=== PATIENT | female | born 1945 | race American Indian/Alaskan Native ===

== ENCOUNTER 2016-05-23 09:27 | Outpatient (CLI) | payer MEDICARE ==
[2016-05-23] MEDS ORDERED: XYLOCAINE TOPICAL 4% TP ONE ×2 (09:53→15:23)
== END 2016-05-23 09:28 | disposition home or self-care (01) ==
LOC: WOUND 09:27
PROVIDERS: ATTEND Orthopaedic Surgery
DX: L02.11 Cutaneous abscess of neck (principal); E11.9 Type 2 diabetes mellitus without complications; I10 Essential (primary) hypertension; B95.62 Methicillin resistant Staphylococcus aureus infection as the cause of diseases classified elsewhere; F17.210 Nicotine dependence, cigarettes, uncomplicated; Z89.431 Acquired absence of right foot; Z89.411 Acquired absence of right great toe

== ENCOUNTER 2016-05-30 08:47 | Outpatient (CLI) | payer MEDICARE ==
[2016-05-30] MEDS ORDERED: XYLOCAINE TOPICAL 4% TP ONE ×2 (08:57→09:03)
== END 2016-05-30 08:48 | disposition home or self-care (01) ==
LOC: WOUND 08:47
PROVIDERS: ATTEND Orthopaedic Surgery
DX: L02.11 Cutaneous abscess of neck (principal); E11.9 Type 2 diabetes mellitus without complications; I10 Essential (primary) hypertension; F17.210 Nicotine dependence, cigarettes, uncomplicated
CPT/HCPCS: 99212; G0463

== ENCOUNTER 2016-06-06 07:58 | Outpatient (CLI) | payer MEDICARE | END 2016-06-06 07:59 | disposition home or self-care (01) | LOC: WOUND 07:58 | PROVIDERS: ATTEND Orthopaedic Surgery | DX: L02.11 Cutaneous abscess of neck (principal); E11.9 Type 2 diabetes mellitus without complications; I10 Essential (primary) hypertension; F17.210 Nicotine dependence, cigarettes, uncomplicated; Z89.411 Acquired absence of right great toe; Z89.421 Acquired absence of other right toe(s) | CPT/HCPCS: 99212; G0463 ==

== ENCOUNTER 2016-10-18 16:05 | Outpatient (CLI) | payer MEDICARE | END 2016-10-18 16:06 | disposition home or self-care (01) | LOC: LABHHL 16:05 | PROVIDERS: ATTEND Podiatrist Foot & Ankle Surgery | DX: S91.109A Unspecified open wound of unspecified toe(s) without damage to nail, initial encounter (principal); M21.612 Bunion of left foot; L02.612 Cutaneous abscess of left foot; X58.XXXA Exposure to other specified factors, initial encounter; Y93.89 Activity, other specified; Y92.89 Other specified places as the place of occurrence of the external cause; Y99.8 Other external cause status | CPT/HCPCS: 87075; 87076; 87102; 87116; 87186; 87220; 88304; 88311 ==

== ENCOUNTER 2016-10-29 11:16 | Outpatient (CLI) | payer MEDICARE | END 2016-10-29 11:17 | disposition home or self-care (01) | LOC: VAS 11:16 | PROVIDERS: ATTEND Podiatrist Foot & Ankle Surgery | DX: M79.89 Other specified soft tissue disorders (principal); M79.662 Pain in left lower leg ==

== ENCOUNTER 2016-10-31 15:25 | Outpatient (CLI) | payer MEDICARE | END 2016-10-31 15:26 | disposition home or self-care (01) | LOC: LABHHL 15:25 | PROVIDERS: ATTEND Podiatrist Foot & Ankle Surgery | DX: L97.529 Non-pressure chronic ulcer of other part of left foot with unspecified severity (principal); F17.200 Nicotine dependence, unspecified, uncomplicated; J44.9 Chronic obstructive pulmonary disease, unspecified | CPT/HCPCS: 87075; 87076; 87102; 87116; 87186; 87220; 88305; 88311 ==

== ENCOUNTER 2017-04-30 08:12 | Outpatient (CLI) | payer MEDICARE ==
--- NOTE | 2017-04-30 11:57 | Mammography Report ---
BILATERAL DIGITAL SCREENING MAMMOGRAM with CAD: 04/30/17 08:12:00 CLINICAL: Routine screening. COMPARISON:None available. FINDINGS: The breasts are heterogeneously dense, which may obscure small masses. A left inner asymmetry on the CC view requires additional imaging.No architectural distortion or suspicious calcifications.The right breast is negative. IMPRESSION: Left asymmetry requiring further workup. BI-RADS CATEGORY: 0 -- Additional Imaging Evaluation Required RECOMMENDATION: Recall for left lateralmedial and spot magnification CC views and left breast ultrasound if needed. ACR BI-RADS MAMMOGRAPHIC CODES: 0 = Needs additional imaging evaluation; 1 = Negative; 2 = Benign; 3 = Probably benign; 4 = Suspicious; 5 = Malignant; 6 = Known biopsy-proven malignancy COMMENT: 1. Dense breast tissue, i.e., adenosis, fibrocystic changes, etc., may obscure an underlying neoplasm. 2. Approximately 10% of cancers are not detected with mammography. 3. A negative mammography report should not delay biopsy if a clinically suspicious mass is present. COMMENT: Patient follow-up letters are generated via our [employer] application.
== END 2017-04-30 08:13 | disposition home or self-care (01) ==
LOC: MAMMO 08:12
PROVIDERS: ATTEND Internal Medicine
DX: Z12.31 Encounter for screening mammogram for malignant neoplasm of breast (principal)
CPT/HCPCS: 77067; G0202

== ENCOUNTER 2017-09-10 15:21 | Inpatient (IN) | payer MEDICARE ==
[2017-09-10 15:59] LABS: Hematocrit 31.4 % (30.3-42.9); Hemoglobin 10.4 gm/dl (10.1-14.3); Mean Corpuscular HGB Conc 33 % (30-34); Mean Corpuscular Hemoglobin 28 pg (28-32); Mean Corpuscular Volume 86 fl (79-97); Platelet Count 584 K/mm3 (140-440); Red Blood Count 3.66 M/mm3 (3.65-5.03); Red Cell Distribution Width 16.3 % (13.2-15.2)
[2017-09-10 16:04] LABS: Calcium 8.9 mg/dL (8.4-10.2)
[2017-09-10] MEDS ORDERED: NACL 0.9% 1000 ML 1,000 ML ONE (17:23)
[2017-09-10] MEDS ORDERED: NACL 0.9% 1000 ML 1,000 ML IV ONE ×2 (17:35)
[2017-09-10] MEDS ORDERED: ZOFRAN IV ONE (17:35)
[2017-09-10] MEDS ORDERED: D50W (25GM) Syringe IV PRN (17:36)
[2017-09-10] MEDS ORDERED: BABY ASPIRIN PO ONE (17:38)
--- NOTE | 2017-09-10 17:38 | Emergency Department Report ---
HPI - General Chief Complaint: Dizziness Time Seen by Provider: 09/10/17 17:13 - HPI HPI: The patient is a 71-year-old female with a history of diabetes, presents for evaluation of generalized weakness and lightheadedness. The patient reports 1 week of progressive and constant weakness, and severe positional dizziness, exacerbated with standing or exertion, improved with supine positioning at rest. She is also spasmodic episodes of nausea and vomiting, and admits to polyphagia and polyuria. The patient denies fever, head injury, headache, neck pain, neck stiffness, chest pain, abdominal pain, syncope, hemoptysis, vision or hearing changes, smell or taste changes, paresthesias, facial drooping, slurred speech, seizure-like activity, urine or bowel incontinence or retention , or other focal neurological deficit. ED Past Medical Hx - Past Medical History Hx Diabetes: Yes Hx COPD: Yes - Surgical History Hx Cholecystectomy: Yes Additional Surgical History: right great toe amputation. half index toe right foot amputation - Social History Smoking Status: Current Some Day Smoker Substance Use Type: Alcohol ED Review of Systems ROS: Stated complaint: VOMITING Other details as noted in HPI Constitutional: denies: fever reports generalized weakness and dizziness ENT: denies: throat or neck pain Respiratory: denies: cough, shortness of breath Cardiovascular: denies: chest pain Endocrine: denies unexplained weight loss or gain Gastrointestinal: denies: abdominal pain reports nausea Genitourinary: denies: dysuria Musculoskeletal: denies: leg swelling Skin: denies: rash Neurological: denies: headache Hematological/Lymphatic: denies: easy bleeding or easy bruising Psych: denies sadness or hopelessness Physical Exam - Physical Exam Vital Signs: Vital Signs 09/10/17 09/10/17 15:28 17:34 Temperature 98.3 F 99.5 F Pulse Rate 120 H 110 H Respiratory 18 16 Rate Blood Pressure 98/44 Blood Pressure 118/52 [Left] O2 Sat by Pulse 99 96 Oximetry Physical Exam: General: well-nourished, well-developed, no acute distress Head: Normocephalic, atraumatic Eyes: normal sclera ENT: Mucous membranes are pale and dry Neck: No neck stiffness, no cervical adenopathy Respiratory: Breath sounds equal bilaterally, no wheezing, rales, or rhonchi Cardio: S1 and S2 present, no murmurs, rubs, gallops, capillary refill is delayed Abdomen: Normoactive bowel sounds, soft abdomen, epigstric ttp, no rigidity, no guarding or rebound tenderness Chest WALL/Back: No tenderness to palpation of the chest wall, no CVA tenderness with percussion Musc: No pitting edema Skin: No rash Neuro: no facial drooping, normal speech Psych: Normal affect ED Course Vital Signs 09/10/17 09/10/17 15:28 17:34 Temperature 98.3 F 99.5 F Pulse Rate 120 H 110 H Respiratory 18 16 Rate Blood Pressure 98/44 Blood Pressure 118/52 [Left] O2 Sat by Pulse 99 96 Oximetry ED Medical Decision Making - Lab Data Result diagrams: 09/10/17 15:43 09/10/17 17:50 - Medical Decision Making The patient was seen and examined by myself. The patient is placed on a manager cardiac and continuous pulse ox. On initial evaluation, the patient was found to be in no distress. Evaluation orders were placed. Lab results revealed elevated glucose of 527, elevated anion gap, low bicarbonate, consistent with DKA. Labs also revealed mildly elevated potassium level, elevated creatinine of 3.2, elevated BUN of 50, and a significantly elevated wbc of 36. The patient started on insulin drip and given multiple boluses of normal saline for treatment of her diabetic ketoacidosis. The on-call hospitalist service was contacted. They agreed to admit the patient for further treatment and close monitoring. The ED admit order was placed. The patient was admitted in guarded condition. Critical care attestation.: If time is entered above; I have spent that time in minutes in the direct care of this critically ill patient, excluding procedure time. ED Disposition Clinical Impression: Dehydration, Acute hyperkalemia, Nausea and vomiting in adult, Acute kidney injury DKA (diabetic ketoacidosis) Qualifiers: Diabetes mellitus type: type 2 Diabetes mellitus complication detail: without coma Qualified Code(s): E11.10 - Type 2 diabetes mellitus with ketoacidosis without coma Disposition: OP ADMIT IP TO THIS HOSP Is pt being admited?: Yes Does the pt Need Aspirin: Yes Condition: Serious Instructions: Diabetic Ketoacidosis (ED) Referrals: ALVIN ALARCON MD [Primary Care Provider] - 3-5 Days Time of Disposition: 17:27
[2017-09-10 17:54] LABS: Basophils % (Manual) 0 % (0.0-1.8); Eosinophils % (Manual) 0 % (0.0-4.3); Myelocytes # (Manual) 0.2 K/mm3; Total Cells Counted 200
[2017-09-10 17:57] LABS: Anisocytosis Few; Platelet Estimate Appears Increased; Poikilocytosis Few
[2017-09-10] MEDS ORDERED: HumuLIN R 100 UNITS in NACL 0.9% 99 ML IV SCH (18:00)
[2017-09-10] MEDS ORDERED: TYLENOL PO ONE (18:14)
[2017-09-10] MEDS ORDERED: HumuLIN R IV ONE (18:36)
--- NOTE | 2017-09-10 18:47 | History and Physical Report ---
History of Present Illness Chief complaint: I feel sick History of present illness: 71 YO Female with COPD, DM, Nicotine Dependence presents to ED for evaluation. Pt states that she has experienced generalized weakness, nausea, 2 episodes of vomiting, polydipsia, polyuria, polyphagia over the past 3 days with worsening symptoms over the past 1 day. Pt transported to [facility] by family. Pt seen and evaluated in ED and found to have DKA complicated by sepsis, and acute renal failure. Pt initiated on DKA protocol, and admitted to ICU. Pt denies fever, chills, headache, neck pain, neck stiffness, trauma, chest pain, abdominal pain , syncope, hemoptysis, vision or hearing changes, paresthesias, facial drooping , slurred speech, seizures, productive cough, urine or bowel incontinence or retention, or other focal neurological deficit, recent ill contacts. Past History Past Medical History: COPD, diabetes Past Surgical History: cholecystectomy, Other (Right toe amputation) Social history: single, smoking Family history: no significant family history (reviewed) Medications and Allergies Allergies Allergy/AdvReac Type Severity Reaction Status Date / Time Penicillins Allergy Unknown Verified 11/16/15 13:37 Active Meds: Active Medications Dextrose (D50w (25gm) Syringe) 0 ml IV PRN PRN PRN Reason: Hypoglycemia Insulin Human Regular 100 (units/ Sodium Chloride) 100 mls @ 1 mls/hr IV TITR MARGARET; Protocol Review of Systems Constitutional: no weight loss, no weight gain, no fever, no chills Ears, nose, mouth and throat: no ear pain, no ear discharge, no tinnitis, no decreased hearing, no nose pain, no nasal congestion, no nasal discharge Breasts: no change in shape, no swelling, no mass Cardiovascular: no chest pain, no orthopnea, no palpitations, no edema, no syncope Respiratory: no cough, no cough with sputum, no excessive sputum, no hemoptysis , no shortness of breath Gastrointestinal: nausea, vomiting, no abdominal pain, no diarrhea, no constipation, no change in bowel habits, no hematemesis, no BRBPR, no melena, no hematochezia, no loss of appetite Genitourinary Female: no dysmenorrhea, no pelvic pain, no menorrhagia, no dysuria Rectal: no pain, no incontinence, no bleeding Musculoskeletal: no neck stiffness, no neck pain, no shooting arm pain, no arm numbness/tingling, no low back pain Integumentary: no rash, no pruritis, no redness, no sores, no wounds, no jaundice Neurological: no paralysis, no weakness, no parathesias, no numbness, no tingling, no seizures, no syncope Psychiatric: no anxiety, no memory loss, no change in sleep habits, no sleep disturbances, no insomnia, no hypersomnia, no suicidal ideation Endocrine: polyphagia, polydipsia, polyuria, high blood sugars, no cold intolerance, no heat intolerance, no excessive sweating, no proptosis, no thyroid mass, no palpatations Hematologic/Lymphatic: no easy bruising, no easy bleeding, no lymphadenopathy, no lymphedema Allergic/Immunologic: no urticaria, no allergic rhinitis, no wheezing Exam - Constitutional Vitals: Temp Pulse Resp BP Pulse Ox 99.5 F 104 H 16 114/54 98 09/10/17 17:34 09/10/17 18:19 09/10/17 18:19 09/10/17 18:19 09/10/17 18:19 General appearance: Present: mild distress - EENT Eyes: Present: PERRL ENT: hearing intact, clear oral mucosa, other (dry oral mucosa) - Neck Neck: Present: supple, normal ROM - Respiratory Respiratory effort: normal Respiratory: bilateral: CTA - Cardiovascular Heart Sounds: Present: S1 & S2. Absent: rub, click - Extremities Extremities: pulses symmetrical, No edema Peripheral Pulses: within normal limits - Abdominal General gastrointestinal: Present: soft, non-tender, non-distended, normal bowel sounds Female genitourinary: Present: normal - Integumentary Integumentary: Present: clear, warm, dry - Musculoskeletal Musculoskeletal: gait normal, strength equal bilaterally - Psychiatric Psychiatric: appropriate mood/affect, intact judgment & insight - Neurologic Neurologic: CNII-XII intact, moves all extremities Results - Labs CBC & Chem 7: 09/10/17 15:43 09/10/17 19:04 Labs: Abnormal lab results 09/10/17 09/10/17 09/10/17 Range/Units 15:34 15:43 17:50 WBC 34.6 H (4.5-11.0) K/mm3 RDW 16.3 H (13.2-15.2) % Plt Count 584 H (140-440) K/mm3 Seg Neuts % (Manual) 94.5 H (40.0-70.0) % Lymphocytes % (Manual) 2.5 L (13.4-35.0) % Seg Neutrophils # Man 32.7 H (1.8-7.7) K/mm3 Lymphocytes # (Manual) 0.9 L (1.2-5.4) K/mm3 VBG pH (7.320-7.420) Sodium 124 L (137-145) mmol/L Potassium 5.1 H (3.6-5.0) mmol/L Chloride 85.1 L (98-107) mmol/L Carbon Dioxide 16 L (22-30) mmol/L BUN 50 H (7-17) mg/dL Creatinine 3.1 H (0.7-1.2) mg/dL Glucose 471 H (65-100) mg/dL Calcium (8.4-10.2) mg/dL NT-Pro-B Natriuret Pep 4650 H (0-900) pg/mL 09/10/17 09/10/17 Range/Units 17:50 17:50 WBC (4.5-11.0) K/mm3 RDW (13.2-15.2) % Plt Count (140-440) K/mm3 Seg Neuts % (Manual) (40.0-70.0) % Lymphocytes % (Manual) (13.4-35.0) % Seg Neutrophils # Man (1.8-7.7) K/mm3 Lymphocytes # (Manual) (1.2-5.4) K/mm3 VBG pH 7.302 L (7.320-7.420) Sodium 125 L (137-145) mmol/L Potassium 5.4 H (3.6-5.0) mmol/L Chloride 89.4 L (98-107) mmol/L Carbon Dioxide 16 L (22-30) mmol/L BUN 50 H (7-17) mg/dL Creatinine 3.2 H (0.7-1.2) mg/dL Glucose 527 H* (65-100) mg/dL Calcium 8.0 L (8.4-10.2) mg/dL NT-Pro-B Natriuret Pep (0-900) pg/mL Assessment and Plan - Patient Problems (1) DKA (diabetic ketoacidosis) Current Visit: Yes Status: Acute Qualifiers: Diabetes mellitus type: type 2 Diabetes mellitus complication detail: without coma Qualified Code(s): E11.10 - Type 2 diabetes mellitus with ketoacidosis without coma Plan to address problem: DKA protocol: IV resuscitation, Insulin drip, serial bmp, monitor anion gap, monitor serum potassium level, replete as per protocol The high probability of a clinically significant, sudden or life threatening deterioration of the [endocrine, renal, neuro] system(s) required my full and direct attention, intervention and personal management. The aggregate critical care time was [65] minutes. This time is in addition to time spent performing reported procedures but includes the following: [x] Data Review and interpretation [x] Patient assessment and monitoring of vital signs [x] Documentation [x] Medication orders and management (2) Sepsis Current Visit: Yes Status: Acute Qualifiers: Sepsis type: sepsis due to unspecified organism Qualified Code(s): A41.9 - Sepsis, unspecified organism Plan to address problem: IV antiboitics, blood cultures, urinalysis, monitor uop q shift, serial lactic acid level, Chest x ray, urinalysis, (3) Acidosis Current Visit: Yes Status: Acute Plan to address problem: secondary to DKA, IVF resuscitation, serial lactic acid (4) CHF (congestive heart failure) Current Visit: Yes Status: Acute Qualifiers: Heart failure type: diastolic Heart failure chronicity: acute Qualified Code(s): I50.31 - Acute diastolic (congestive) heart failure Plan to address problem: Cardiology consulted, Echo, strict I/O, daily weight, monitor uop q shift, (5) Acute kidney injury Current Visit: Yes Status: Acute Plan to address problem: IVF resuscitation, monitor uop q shift, urine electrolytes, repeat bmp to monitor change in serum creatnine. (6) DVT prophylaxis Current Visit: Yes Status: Acute Plan to address problem: scd to ble
[2017-09-10] MEDS ORDERED: VANCOMYCIN VIAL IV ONE (18:54)
[2017-09-10] MEDS ORDERED: NACL 0.9% 1000 ML IV ONE (18:54)
[2017-09-10] MEDS ORDERED: PROVENTIL IH PRN (18:54)
[2017-09-10] MEDS ORDERED: SODIUM CHLORIDE FLUSH SYRINGE 10 ML IV PRN (18:54)
[2017-09-10] MEDS ORDERED: VANCOMYCIN PHARMACY TO DOSE IV SCH (19:00)
--- NOTE | 2017-09-10 19:52 | XRay Report ---
FINAL REPORT PROCEDURE: XR CHEST 1V AP TECHNIQUE: Chest radiograph anteroposterior view. CPT 77118 HISTORY: Cough. COMPARISON: No prior studies are available for comparison. FINDINGS: Heart: The heart size is top-normal. Mediastinum/Vessels: Aortic calcification and tortuosity. Lungs/Pleural space: Subtle peribronchial thickening and interstitial prominence. Bony thorax: Mild osteopenia. Slight dextroscoliotic curvature. Subchondral cysts in the right greater tuberosity. Life support devices: None. IMPRESSION: The heart size is top-normal. Aortic calcification and tortuosity. Subtle peribronchial thickening and interstitial prominence, consider mild bronchitis/pneumonitis.
[2017-09-10 19:56] LABS: Calcium 7.7 mg/dL (8.4-10.2)
[2017-09-10] MEDS ORDERED: NACL 0.9% 500 ML 500 ML IV ONE (20:00)
[2017-09-10] MEDS ORDERED: LEVAQUIN 750MG/150ML 750 MG/150 ML BAG IV ONE (20:00)
[2017-09-10] MEDS ORDERED: VANCOMYCIN 1,250 MG in NACL 0.9% 250ML 250 ML IV ONE (22:00)
[2017-09-10 22:41] LABS: Calcium 7.3 mg/dL (8.4-10.2)
[2017-09-10] MEDS: SODIUM CHLORIDE FLUSH SYRINGE 10 ML IV SCH (23:03)
[2017-09-11 01:20] LABS: Calcium 7.3 mg/dL (8.4-10.2)
[2017-09-11 02:41] LABS: Bacteria,Urine 4+ /HPF (Negative); Bilirubin,Urine NEG (Negative); Blood,Urine LG (Negative); Color,Urine Yellow (Yellow); Urobilinogen,Urine < 2.0 mg/dL (<2.0)
[2017-09-11 03:02] LABS: WBC,Urine > 182.0 /HPF (0.0-6.0)
[2017-09-11] MEDS ORDERED: NACL 0.9% 1000 ML 1,000 ML IV SCH ×2 (04:00→11:00)
[2017-09-11] MEDS ORDERED: D5/0.45NS 1,000 ML IV SCH (04:00)
[2017-09-11 07:52] LABS: Calcium 7.4 mg/dL (8.4-10.2)
--- NOTE | 2017-09-11 08:00 | Progress Note ---
Assessment and Plan Assessment and plan: --Diabetic ketoacidosis; On insulin drip, anion gap closing, still acidotic Review of a.m. labs, continue insulin drip, dehydration, start ADA diet as tolerated --Hyponatremia; pseudohyponatremia due to hyperglycemia, improving,Continue IV fluids --Hypokalemia; replenish per protocol and monitor levels --Sepsis/lactic acidosis; Probably secondary to acute bronchitis/pneumonitis IV fluids, continue current antibiotics Vanco and Levaquin. Follow cultures --Gram-negative sepsis/the gram-negative bacteremia; Continue current antibiotics, repeat cultures, ID consultation --Leukocytosis; secondary to sepsis due to bronchitis pneumonitis --Pneumonitis/bronchitis; IV antibiotics, oxygen, supportive care --Urinary tract infection present on admission; continue current antibiotics follow cultures --Congestive heart failure; probably systolic dysfunction, unknown ejection fraction, follow echocardiogram, cardiology consulted --Acute kidney injury; vasomotor nephropathy Gentle hydration in view of congestive heart failure, closely monitor renal function, avoid nephrotoxic medications, nephrology consultation --DVT prophylaxis; SCDs, heparin renal dose Monitor for 1 or 2 hours off insulin drip, if stable may be transferred to medical floor with remote telemetry Critical care time 35 minutes History Interval history: Patient seen and examined this morning, medical records reviewed Meeting with diabetic ketoacidosis, on insulin drip Patient's symptoms significantly improved A gap closed, asking for food Alert awake oriented 3 not in acute distress Hospitalist Physical - Constitutional Vitals: Temp Pulse Resp BP Pulse Ox 102.6 F H 110 H 18 115/52 95 09/11/17 04:00 09/11/17 06:20 09/11/17 06:20 09/11/17 06:20 09/11/17 05:54 General appearance: Present: no acute distress, well-nourished - EENT Eyes: Present: PERRL, EOM intact - Neck Neck: Present: supple, normal ROM - Respiratory Respiratory effort: normal Respiratory: bilateral: diminished, negative: rales, rhonchi, wheezing - Cardiovascular Rhythm: regular Heart Sounds: Present: S1 & S2 - Extremities Extremities: no ischemia, No edema - Abdominal General gastrointestinal: soft, non-tender, non-distended, normal bowel sounds - Integumentary Integumentary: Present: clear, warm - Psychiatric Psychiatric: appropriate mood/affect, cooperative - Neurologic Neurologic: CNII-XII intact, moves all extremities Results - Labs CBC & Chem 7: 09/12/17 08:51 09/12/17 05:14 Labs: Laboratory Last Values WBC 34.6 K/mm3 (4.5-11.0) H 09/10/17 15:43 RBC 3.66 M/mm3 (3.65-5.03) 09/10/17 15:43 Hgb 10.4 gm/dl (10.1-14.3) 09/10/17 15:43 Hct 31.4 % (30.3-42.9) 09/10/17 15:43 MCV 86 fl (79-97) 09/10/17 15:43 MCH 28 pg (28-32) 09/10/17 15:43 MCHC 33 % (30-34) 09/10/17 15:43 RDW 16.3 % (13.2-15.2) H 09/10/17 15:43 Plt Count 584 K/mm3 (140-440) H 09/10/17 15:43 Add Manual Diff Complete 09/10/17 15:43 Total Counted 200 09/10/17 15:43 Seg Neutrophils % Prospect Manager 09/10/17 15:43 Seg Neuts % (Manual) 94.5 % (40.0-70.0) H 09/10/17 15:43 Band Neutrophils % 0 % 09/10/17 15:43 Lymphocytes % (Manual) 2.5 % (13.4-35.0) L 09/10/17 15:43 Reactive Lymphs % (Man) 0 % 09/10/17 15:43 Monocytes % (Manual) 2.0 % (0.0-7.3) 09/10/17 15:43 Eosinophils % (Manual) 0 % (0.0-4.3) 09/10/17 15:43 Basophils % (Manual) 0 % (0.0-1.8) 09/10/17 15:43 Metamyelocytes % 0.5 % 09/10/17 15:43 Myelocytes % 0.5 % 09/10/17 15:43 Promyelocytes % 0 % 09/10/17 15:43 Blast Cells % 0 % 09/10/17 15:43 Nucleated RBC % Not Reportable 09/10/17 15:43 Seg Neutrophils # Man 32.7 K/mm3 (1.8-7.7) H 09/10/17 15:43 Band Neutrophils # 0.0 K/mm3 09/10/17 15:43 Lymphocytes # (Manual) 0.9 K/mm3 (1.2-5.4) L 09/10/17 15:43 Abs React Lymphs (Man) 0.0 K/mm3 09/10/17 15:43 Monocytes # (Manual) 0.7 K/mm3 (0.0-0.8) 09/10/17 15:43 Eosinophils # (Manual) 0.0 K/mm3 (0.0-0.4) 09/10/17 15:43 Basophils # (Manual) 0.0 K/mm3 (0.0-0.1) 09/10/17 15:43 Metamyelocytes # 0.2 K/mm3 09/10/17 15:43 Myelocytes # 0.2 K/mm3 09/10/17 15:43 Promyelocytes # 0.0 K/mm3 09/10/17 15:43 Blast Cells # 0.0 K/mm3 09/10/17 15:43 WBC Morphology Not Reportable 09/10/17 15:43 Hypersegmented Neuts Not Reportable 09/10/17 15:43 Hyposegmented Neuts Not Reportable 09/10/17 15:43 Hypogranular Neuts Not Reportable 09/10/17 15:43 Smudge Cells Not Reportable 09/10/17 15:43 Toxic Granulation Not Reportable 09/10/17 15:43 Toxic Vacuolation Not Reportable 09/10/17 15:43 Dohle Bodies Not Reportable 09/10/17 15:43 Pelger-Huet Anomaly Not Reportable 09/10/17 15:43 Cecilia Rods Not Reportable 09/10/17 15:43 Platelet Estimate Appears increased 09/10/17 15:43 Clumped Platelets Not Reportable 09/10/17 15:43 Plt Clumps, EDTA Not Reportable 09/10/17 15:43 Large Platelets Not Reportable 09/10/17 15:43 Giant Platelets Not Reportable 09/10/17 15:43 Platelet Satelliting Not Reportable 09/10/17 15:43 Plt Morphology Comment Not Reportable 09/10/17 15:43 RBC Morphology Not Reportable 09/10/17 15:43 Dimorphic RBCs Not Reportable 09/10/17 15:43 Polychromasia Not Reportable 09/10/17 15:43 Hypochromasia Not Reportable 09/10/17 15:43 Poikilocytosis Few 09/10/17 15:43 Anisocytosis Few 09/10/17 15:43 Microcytosis Not Reportable 09/10/17 15:43 Macrocytosis Not Reportable 09/10/17 15:43 Spherocytes Not Reportable 09/10/17 15:43 Pappenheimer Bodies Not Reportable 09/10/17 15:43 Sickle Cells Not Reportable 09/10/17 15:43 Target Cells Not Reportable 09/10/17 15:43 Tear Drop Cells Not Reportable 09/10/17 15:43 Ovalocytes Not Reportable 09/10/17 15:43 Helmet Cells Not Reportable 09/10/17 15:43 Beavers-Anon Raices Bodies Not Reportable 09/10/17 15:43 Dalton Rings Not Reportable 09/10/17 15:43 Ashkan Cells Not Reportable 09/10/17 15:43 Bite Cells Not Reportable 09/10/17 15:43 Crenated Cell Not Reportable 09/10/17 15:43 Elliptocytes Not Reportable 09/10/17 15:43 Acanthocytes (Spur) Not Reportable 09/10/17 15:43 Rouleaux Not Reportable 09/10/17 15:43 Hemoglobin C Crystals Not Reportable 09/10/17 15:43 Schistocytes Not Reportable 09/10/17 15:43 Malaria parasites Not Reportable 09/10/17 15:43 Jose A Bodies Not Reportable 09/10/17 15:43 Hem Pathologist Commnt Sent to pathology 09/10/17 15:43 VBG pH 7.302 (7.320-7.420) L 09/10/17 17:50 Sodium 133 mmol/L (137-145) L 09/11/17 06:57 Potassium 4.2 mmol/L (3.6-5.0) 09/10/17 23:41 Chloride 99.8 mmol/L (98-107) 09/11/17 06:57 Carbon Dioxide 17 mmol/L (22-30) L 09/11/17 06:57 Anion Gap 20 mmol/L 09/11/17 06:57 BUN 40 mg/dL (7-17) H 09/11/17 06:57 Creatinine 2.1 mg/dL (0.7-1.2) H 09/11/17 06:57 Estimated GFR 23 ml/min 09/11/17 06:57 BUN/Creatinine Ratio 19 % 09/11/17 06:57 Glucose 132 mg/dL (65-100) H 09/11/17 06:57 POC Glucose 132 (70-105) H 09/11/17 06:59 Lactic Acid 1.40 mmol/L (0.7-2.0) 09/11/17 06:57 Calcium 7.4 mg/dL (8.4-10.2) L 09/11/17 06:57 Phosphorus 3.60 mg/dL (2.5-4.5) 09/10/17 17:50 Magnesium 1.80 mg/dL (1.7-2.3) 09/10/17 17:50 NT-Pro-B Natriuret Pep 4650 pg/mL (0-900) H 09/10/17 17:50 Urine Color Yellow (Yellow) 09/11/17 02:15 Urine Turbidity Clear (Clear) 09/11/17 02:15 Urine pH 6.0 (5.0-7.0) 09/11/17 02:15 Ur Specific Weikert 1.008 (1.003-1.030) 09/11/17 02:15 Urine Protein 30 mg/dl mg/dL (Negative) 09/11/17 02:15 Urine Glucose (UA) 50 mg/dL (Negative) 09/11/17 02:15 Urine Ketones Neg mg/dL (Negative) 09/11/17 02:15 Urine Blood Lg (Negative) 09/11/17 02:15 Urine Nitrite Neg (Negative) 09/11/17 02:15 Urine Bilirubin Neg (Negative) 09/11/17 02:15 Urine Urobilinogen < 2.0 mg/dL (<2.0) 09/11/17 02:15 Ur Leukocyte Esterase Lg (Negative) 09/11/17 02:15 Urine WBC (Auto) > 182.0 /HPF (0.0-6.0) H 09/11/17 02:15 Urine RBC (Auto) 25.0 /HPF (0.0-6.0) 04/25/18 02:15 U Epithel Cells (Auto) 6.0 /HPF (0-13.0) 09/11/17 02:15 Urine Bacteria (Auto) 4+ /HPF (Negative) 09/11/17 02:15 Urine WBC Clumps 3+ /HPF 09/11/17 02:15 Urine Creatinine 29.0 mg/dL (0.1-20.0) H 09/11/17 02:15 Urine Microalbumin 8.7 mg/dL (0.1-34.0) 09/11/17 02:15 Microalb/Creat Ratio 300.0 ug/mg 09/11/17 02:15 Urine Sodium 73 mmol/L 09/11/17 02:15 Blood Type A POSITIVE 09/10/17 19:04 Antibody Screen Negative 09/10/17 19:04
--- NOTE | 2017-09-11 09:24 | Consultation ---
History of Present Illness - Reason for Consult Consult date: 09/11/17 DKA, volume depletion and acute renal failure Requesting physician: RICHAR SANTOS - History of Present Illness 71 y/o female with newly diagnosed diabetes an DKA. Admitted with elevated Blood sugar and acute renal failure. Started on DKA protocol and insulin drip. Anion Gap now is 16 when calculated. Blood sugars have improved. Past History Past Medical History: COPD, diabetes Past Surgical History: cholecystectomy, Other (Right toe amputation) Social history: single, smoking Family history: no significant family history (reviewed) Medications and Allergies Allergies Allergy/AdvReac Type Severity Reaction Status Date / Time Penicillins Allergy Unknown Verified 11/16/15 13:37 Active Meds: Active Medications Albuterol (Proventil) 2.5 mg IH Q3HRT PRN PRN Reason: Shortness Of Breath Dextrose (D50w (25gm) Syringe) 0 ml IV PRN PRN PRN Reason: Hypoglycemia Levofloxacin/Dextrose (Levaquin 500mg/100ml) 500 mg in 100 mls @ 66.667 mls/hr IV Q48HR [facility]; Protocol Sodium Chloride (Nacl 0.9% 1000 Ml) 1,000 mls @ 125 mls/hr IV DIRECT [facility] Dextrose/Sodium Chloride (D5/0.45ns) 1,000 mls @ 125 mls/hr IV DIRECT [facility] Last Admin: 09/11/17 04:10 Dose: 125 mls/hr Insulin Human Isoph/Insulin Regular (Humulin 70/30) 8 unit SUB-Q BIDDIAB [facility] Insulin Human Regular (Humulin R) 0 units SUB-Q ACHS [facility]; Protocol Potassium Chloride (K-Dur) 40 meq PO ONCE ONE Stop: 09/11/17 10:01 Sodium Chloride (Sodium Chloride Flush Syringe 10 Ml) 10 ml IV BID [facility] Last Admin: 09/10/17 23:03 Dose: 10 ml Sodium Chloride (Sodium Chloride Flush Syringe 10 Ml) 10 ml IV PRN PRN PRN Reason: LINE FLUSH Vancomycin HCl (Vancomycin Pharmacy To Dose) 1 each IV PKCONSULT [facility] Review of Systems All systems: negative Exam - Constitutional Vitals: Temp Pulse Resp BP Pulse Ox 102.6 F H 100 H 15 91/44 98 09/11/17 04:00 09/11/17 08:50 09/11/17 08:50 09/11/17 08:50 09/11/17 08:50 General appearance: Present: no acute distress, well-nourished - EENT Eyes: Present: PERRL, EOM intact ENT: hearing intact, clear oral mucosa, dentition normal - Neck Neck: Present: supple, normal ROM - Respiratory Respiratory effort: normal Respiratory: bilateral: CTA - Cardiovascular Rhythm: regular Heart Sounds: Present: S1 & S2 - Extremities Extremities: no ischemia - Abdominal General gastrointestinal: Present: soft, non-tender Results - Labs CBC & Chem 7: 09/10/17 15:43 09/11/17 06:57 Labs: Abnormal lab results 09/10/17 09/10/17 09/10/17 Range/Units 15:34 15:43 17:50 WBC 34.6 H (4.5-11.0) K/mm3 RDW 16.3 H (13.2-15.2) % Plt Count 584 H (140-440) K/mm3 Seg Neuts % (Manual) 94.5 H (40.0-70.0) % Lymphocytes % (Manual) 2.5 L (13.4-35.0) % Seg Neutrophils # Man 32.7 H (1.8-7.7) K/mm3 Lymphocytes # (Manual) 0.9 L (1.2-5.4) K/mm3 VBG pH (7.320-7.420) Sodium 124 L (137-145) mmol/L Potassium 5.1 H (3.6-5.0) mmol/L Chloride 85.1 L (98-107) mmol/L Carbon Dioxide 16 L (22-30) mmol/L BUN 50 H (7-17) mg/dL Creatinine 3.1 H (0.7-1.2) mg/dL Glucose 471 H (65-100) mg/dL POC Glucose (70-105) Lactic Acid (0.7-2.0) mmol/L Calcium (8.4-10.2) mg/dL NT-Pro-B Natriuret Pep 4650 H (0-900) pg/mL Urine WBC (Auto) (0.0-6.0) /HPF Urine Creatinine (0.1-20.0) mg/dL 09/10/17 09/10/17 09/10/17 Range/Units 17:50 17:50 18:27 WBC (4.5-11.0) K/mm3 RDW (13.2-15.2) % Plt Count (140-440) K/mm3 Seg Neuts % (Manual) (40.0-70.0) % Lymphocytes % (Manual) (13.4-35.0) % Seg Neutrophils # Man (1.8-7.7) K/mm3 Lymphocytes # (Manual) (1.2-5.4) K/mm3 VBG pH 7.302 L (7.320-7.420) Sodium 125 L (137-145) mmol/L Potassium 5.4 H (3.6-5.0) mmol/L Chloride 89.4 L (98-107) mmol/L Carbon Dioxide 16 L (22-30) mmol/L BUN 50 H (7-17) mg/dL Creatinine 3.2 H (0.7-1.2) mg/dL Glucose 527 H* (65-100) mg/dL POC Glucose (70-105) Lactic Acid 2.30 H* (0.7-2.0) mmol/L Calcium 8.0 L (8.4-10.2) mg/dL NT-Pro-B Natriuret Pep (0-900) pg/mL Urine WBC (Auto) (0.0-6.0) /HPF Urine Creatinine (0.1-20.0) mg/dL 09/10/17 09/10/17 09/10/17 Range/Units 18:53 19:04 19:15 WBC (4.5-11.0) K/mm3 RDW (13.2-15.2) % Plt Count (140-440) K/mm3 Seg Neuts % (Manual) (40.0-70.0) % Lymphocytes % (Manual) (13.4-35.0) % Seg Neutrophils # Man (1.8-7.7) K/mm3 Lymphocytes # (Manual) (1.2-5.4) K/mm3 VBG pH (7.320-7.420) Sodium 128 L (137-145) mmol/L Potassium (3.6-5.0) mmol/L Chloride 94.1 L (98-107) mmol/L Carbon Dioxide 18 L (22-30) mmol/L BUN 46 H (7-17) mg/dL Creatinine 2.7 H (0.7-1.2) mg/dL Glucose 497 H (65-100) mg/dL POC Glucose > 500 H 495 H (70-105) Lactic Acid (0.7-2.0) mmol/L Calcium 7.7 L (8.4-10.2) mg/dL NT-Pro-B Natriuret Pep (0-900) pg/mL Urine WBC (Auto) (0.0-6.0) /HPF Urine Creatinine (0.1-20.0) mg/dL 09/10/17 09/10/17 09/10/17 Range/Units 21:04 22:06 22:06 WBC (4.5-11.0) K/mm3 RDW (13.2-15.2) % Plt Count (140-440) K/mm3 Seg Neuts % (Manual) (40.0-70.0) % Lymphocytes % (Manual) (13.4-35.0) % Seg Neutrophils # Man (1.8-7.7) K/mm3 Lymphocytes # (Manual) (1.2-5.4) K/mm3 VBG pH (7.320-7.420) Sodium 131 L (137-145) mmol/L Potassium (3.6-5.0) mmol/L Chloride 97.9 L (98-107) mmol/L Carbon Dioxide 15 L (22-30) mmol/L BUN 45 H (7-17) mg/dL Creatinine 2.6 H (0.7-1.2) mg/dL Glucose 230 H (65-100) mg/dL POC Glucose 346 H (70-105) Lactic Acid 2.30 H* (0.7-2.0) mmol/L Calcium 7.3 L (8.4-10.2) mg/dL NT-Pro-B Natriuret Pep (0-900) pg/mL Urine WBC (Auto) (0.0-6.0) /HPF Urine Creatinine (0.1-20.0) mg/dL 09/10/17 09/10/17 09/10/17 Range/Units 23:13 23:41 23:41 WBC (4.5-11.0) K/mm3 RDW (13.2-15.2) % Plt Count (140-440) K/mm3 Seg Neuts % (Manual) (40.0-70.0) % Lymphocytes % (Manual) (13.4-35.0) % Seg Neutrophils # Man (1.8-7.7) K/mm3 Lymphocytes # (Manual) (1.2-5.4) K/mm3 VBG pH (7.320-7.420) Sodium 134 L (137-145) mmol/L Potassium (3.6-5.0) mmol/L Chloride (98-107) mmol/L Carbon Dioxide 14 L (22-30) mmol/L BUN 45 H (7-17) mg/dL Creatinine 2.6 H (0.7-1.2) mg/dL Glucose 104 H (65-100) mg/dL POC Glucose 143 H (70-105) Lactic Acid 2.40 H* (0.7-2.0) mmol/L Calcium 7.3 L (8.4-10.2) mg/dL NT-Pro-B Natriuret Pep (0-900) pg/mL Urine WBC (Auto) (0.0-6.0) /HPF Urine Creatinine (0.1-20.0) mg/dL 09/11/17 09/11/17 09/11/17 Range/Units 00:05 01:07 02:11 WBC (4.5-11.0) K/mm3 RDW (13.2-15.2) % Plt Count (140-440) K/mm3 Seg Neuts % (Manual) (40.0-70.0) % Lymphocytes % (Manual) (13.4-35.0) % Seg Neutrophils # Man (1.8-7.7) K/mm3 Lymphocytes # (Manual) (1.2-5.4) K/mm3 VBG pH (7.320-7.420) Sodium (137-145) mmol/L Potassium (3.6-5.0) mmol/L Chloride (98-107) mmol/L Carbon Dioxide (22-30) mmol/L BUN (7-17) mg/dL Creatinine (0.7-1.2) mg/dL Glucose (65-100) mg/dL POC Glucose 111 H 115 H 185 H (70-105) Lactic Acid (0.7-2.0) mmol/L Calcium (8.4-10.2) mg/dL NT-Pro-B Natriuret Pep (0-900) pg/mL Urine WBC (Auto) (0.0-6.0) /HPF Urine Creatinine (0.1-20.0) mg/dL 09/11/17 09/11/17 09/11/17 Range/Units 02:15 02:15 03:14 WBC (4.5-11.0) K/mm3 RDW (13.2-15.2) % Plt Count (140-440) K/mm3 Seg Neuts % (Manual) (40.0-70.0) % Lymphocytes % (Manual) (13.4-35.0) % Seg Neutrophils # Man (1.8-7.7) K/mm3 Lymphocytes # (Manual) (1.2-5.4) K/mm3 VBG pH (7.320-7.420) Sodium (137-145) mmol/L Potassium (3.6-5.0) mmol/L Chloride (98-107) mmol/L Carbon Dioxide (22-30) mmol/L BUN (7-17) mg/dL Creatinine (0.7-1.2) mg/dL Glucose (65-100) mg/dL POC Glucose 183 H (70-105) Lactic Acid (0.7-2.0) mmol/L Calcium (8.4-10.2) mg/dL NT-Pro-B Natriuret Pep (0-900) pg/mL Urine WBC (Auto) > 182.0 H (0.0-6.0) /HPF Urine Creatinine 29.0 H (0.1-20.0) mg/dL 09/11/17 09/11/17 09/11/17 Range/Units 03:55 04:07 05:09 WBC (4.5-11.0) K/mm3 RDW (13.2-15.2) % Plt Count (140-440) K/mm3 Seg Neuts % (Manual) (40.0-70.0) % Lymphocytes % (Manual) (13.4-35.0) % Seg Neutrophils # Man (1.8-7.7) K/mm3 Lymphocytes # (Manual) (1.2-5.4) K/mm3 VBG pH (7.320-7.420) Sodium (137-145) mmol/L Potassium (3.6-5.0) mmol/L Chloride (98-107) mmol/L Carbon Dioxide (22-30) mmol/L BUN (7-17) mg/dL Creatinine (0.7-1.2) mg/dL Glucose (65-100) mg/dL POC Glucose 132 H 136 H (70-105) Lactic Acid 2.10 H* (0.7-2.0) mmol/L Calcium (8.4-10.2) mg/dL NT-Pro-B Natriuret Pep (0-900) pg/mL Urine WBC (Auto) (0.0-6.0) /HPF Urine Creatinine (0.1-20.0) mg/dL 09/11/17 09/11/17 09/11/17 Range/Units 06:17 06:57 06:59 WBC (4.5-11.0) K/mm3 RDW (13.2-15.2) % Plt Count (140-440) K/mm3 Seg Neuts % (Manual) (40.0-70.0) % Lymphocytes % (Manual) (13.4-35.0) % Seg Neutrophils # Man (1.8-7.7) K/mm3 Lymphocytes # (Manual) (1.2-5.4) K/mm3 VBG pH (7.320-7.420) Sodium 133 L (137-145) mmol/L Potassium 3.3 L D (3.6-5.0) mmol/L Chloride (98-107) mmol/L Carbon Dioxide 17 L (22-30) mmol/L BUN 40 H (7-17) mg/dL Creatinine 2.1 H (0.7-1.2) mg/dL Glucose 132 H (65-100) mg/dL POC Glucose 117 H 132 H (70-105) Lactic Acid (0.7-2.0) mmol/L Calcium 7.4 L (8.4-10.2) mg/dL NT-Pro-B Natriuret Pep (0-900) pg/mL Urine WBC (Auto) (0.0-6.0) /HPF Urine Creatinine (0.1-20.0) mg/dL - Imaging and Cardiology Chest x-ray: image reviewed (reviewed and looked at film myself, clear, disagree with cuffing described by radiology) Assessment and Plan 71 y/o female with newly diagnosed diabetes and DKA, also with GNR bacteremia and acute renal failure. 1. Anion Gap has closed. Calculate long acting insulin requirements and administer. Discontinue Insulin drip after long acting started. 2. Feed patient consistent carbohydrate diet 3. GNR's in blood. On admission afebrile but spiked temp to 102.6 this am. On levaquin and Vanc. Will double cover for GNR 4. Renal failure improving with volume, will continue to monitor. 5. If bP holds, tolerates PO, can transition out of unit later today. CCT 31 minutes.
[2017-09-11] MEDS ORDERED: LEVAQUIN 750MG/150ML 750 MG/150 ML BAG IV SCH (10:00)
[2017-09-11] MEDS: HumuLIN R SUB-Q SCH ×4 (10:00→23:15)
[2017-09-11] MEDS ORDERED: K-DUR PO ONE (10:00)
[2017-09-11] MEDS: SODIUM CHLORIDE FLUSH SYRINGE 10 ML IV SCH ×2 (10:04→22:30)
--- NOTE | 2017-09-11 10:30 | Consultation ---
History of Present Illness - Reason for Consult Consult date: 09/11/17 acute renal failure Requesting physician: ANTHONY DIAZ - History of Present Illness 71-year-old lady with a history of type 2 diabetes mellitus for more than 40 years now on insulin. Presented on account of 1 week history of generalized weakness and lightheadedness. Patient had episodes of nausea and vomiting. She also admits to polyuria and polyphagia. On presentation blood pressure was as low as 98/44 mmHg. Labs were quite abnormal with BUN/creatinine of 50/3.2 mg /dL, sodium low at 125's, Potassium high at 5.4 mmol per liter and bicarbonate low at 16 mmol per liter. I am consulted to assist in managing renal failure and electrolyte abnormalities. Patient denies any voiding difficulties, no frequency, urgency, dysuria, hematuria or poor stream. Has not been using any nonsteroidal anti-inflammatory drugs and she has not been exposed to radiocontrast recently. 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 denies: prescription drug abuse, IV drug use Family history: no significant family history (Patient was adopted so she does not know about her biological parents and as far she knows she does not have any siblings) Medications and Allergies Allergies Allergy/AdvReac Type Severity Reaction Status Date / Time Penicillins Allergy Unknown Verified 11/16/15 13:37 Active Meds: Active Medications Albuterol (Proventil) 2.5 mg IH Q3HRT PRN PRN Reason: Shortness Of Breath Dextrose (D50w (25gm) Syringe) 0 ml IV PRN PRN PRN Reason: Hypoglycemia Levofloxacin/Dextrose (Levaquin 500mg/100ml) 500 mg in 100 mls @ 66.667 mls/hr IV Q48HR [facility]; Protocol Sodium Chloride (Nacl 0.9% 1000 Ml) 1,000 mls @ 125 mls/hr IV DIRECT [facility] Dextrose/Sodium Chloride (D5/0.45ns) 1,000 mls @ 125 mls/hr IV DIRECT [facility] Last Admin: 09/11/17 04:10 Dose: 125 mls/hr Insulin Human Isoph/Insulin Regular (Humulin 70/30) 8 unit SUB-Q BIDDIAB [facility] Last Admin: 09/11/17 09:59 Dose: 8 unit Insulin Human Regular (Humulin R) 0 units SUB-Q ACHS [facility]; Protocol Last Admin: 09/11/17 10:00 Dose: Not Given Sodium Chloride (Sodium Chloride Flush Syringe 10 Ml) 10 ml IV BID [facility] Last Admin: 09/11/17 10:04 Dose: 10 ml Sodium Chloride (Sodium Chloride Flush Syringe 10 Ml) 10 ml IV PRN PRN PRN Reason: LINE FLUSH Vancomycin HCl (Vancomycin Pharmacy To Dose) 1 each IV PKCONSULT [facility] Review of Systems All systems: negative (Constitutional: Admits to fever and chills. No anorexia or weight loss. HEENT: No sore throat but admits to sinus drainage no hearing or vision impairment . Cardiovascular: No chest pain, shortness of breath, palpitations, lower extremity swelling or dizziness. Respiratory: Has occasional cough productive of clear sputum. No Shortness of breath, hemoptysis or wheezing. Gastrointestinal: No nausea, vomiting, diarrhea, abdominal pain, hematemesis or melena. Genitourinary: No frequency urgency dysuria or hematuria. hematologic: No abnormal bleeding or bruising. Integumentary: no pruritus or rash. Neurological: Admits to headaches and dizziness. No focal weakness or numbness, no syncope or seizures. Musculoskeletal: Admits to joint pain and stiffness especially in the knees Psychiatry: no anxiety or depression) Exam - Vital Signs Vital signs: Vital Signs Temp Pulse Resp BP Pulse Ox 98.3 F 120 H 18 98/44 99 09/10/17 15:28 09/10/17 15:28 09/10/17 15:28 09/10/17 15:28 09/10/17 15:28 - Physical Exam Narrative exam: Elderly female lying in bed in no acute distress HEENT: NCAT, pink oral mucous membrane Neck: Supple, no venous distention CVS: S1S2 RRR with no murmur, rub or gallop Chest: Clear to auscultation Abdomen: Protuberant, soft, nontender, no organomegaly, bowel sounds are present Extremities: No edema, no clubbing Skin: Warm and dry, no rash Neuro: Awake, alert no focal deficits Results - Lab Results 09/10/17 15:43 09/11/17 06:57 Most recent lab results Calcium 7.4 mg/dL (8.4-10.2) L 09/11/17 06:57 Phosphorus 3.60 mg/dL (2.5-4.5) 09/10/17 17:50 Magnesium 1.80 mg/dL (1.7-2.3) 09/10/17 17:50 Urine Creatinine 29.0 mg/dL (0.1-20.0) H 09/11/17 02:15 Urine Sodium 73 mmol/L 09/11/17 02:15 Assessment and Plan - Patient Problems (1) Acute kidney injury Current Visit: Yes Status: Acute Plan to address problem: Prerenal azotemia versus acute tubular necrosis secondary to hypotension and sepsis. I suspect baseline chronic kidney disease secondary to diabetic nephropathy with proteinuria on urinalysis. Exact stage unknown. We'll request records from primary care physician. Kidney function is improving with volume resuscitation and antibiotics. Continue volume repletion. Quantify proteinuria. Get renal ultrasound to exclude obstruction. Follow-up electrolytes and renal function. (2) Hyponatremia Current Visit: Yes Status: Acute Plan to address problem: Hypovolemic hyponatremia with factitious hyponatremia secondary to hyperglycemia. Sodium improving with volume status resuscitation and control of hyperglycemia. (3) Hypokalemia Current Visit: Yes Status: Acute Plan to address problem: Patient hyperkalemic on presentation due to transcellular shift with acidosis. Potassium is now low with correction of diabetic ketoacidosis. Supplement potassium and follow closely (4) Sepsis due to Gram negative bacteria Current Visit: Yes Status: Acute Plan to address problem: Source possibly urinary tract infection. Follow-up urine culture. Follow up final ID and sensitivity of blood cultures. I agree with double gram-negative coverage (5) Anemia Current Visit: Yes Status: Acute Plan to address problem: Follow-up hemoglobin (6) Acidosis Current Visit: Yes Status: Acute Plan to address problem: Improving with improved blood sugar control. Continue to follow (7) DKA (diabetic ketoacidosis) Current Visit: Yes Status: Acute Qualifiers: Diabetes mellitus type: type 2 Diabetes mellitus complication detail: without coma Qualified Code(s): E11.10 - Type 2 diabetes mellitus with ketoacidosis without coma Plan to address problem: Continue insulin. Blood sugar management by primary attending/voice systems engineer
[2017-09-11] MEDS ORDERED: NACL 0.9% 1000 ML 1,000 ML IV ONE (11:00)
--- NOTE | 2017-09-11 13:24 | Consultation ---
History of Present Illness Consult date: 09/11/17 Consult reason: congestive heart failure History of present illness: 71yr old woman who came in with complaints of nausea vomiting, admitted with DKA , sepsis and acute renal failure. A cardiac consultation is requested for CHF. There were no reports of shortness of breath or chest pain. No interstitial edema seen on chest xray. An ECG is a sinus tachycardia, rate 119. 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 denies: prescription drug abuse, IV drug use Family history: no significant family history (Patient was adopted so she does not know about her biological parents and as far she knows she does not have any siblings) Medications and Allergies Allergies Allergy/AdvReac Type Severity Reaction Status Date / Time Penicillins Allergy Unknown Verified 11/16/15 13:37 Active Meds: Active Medications Albuterol (Proventil) 2.5 mg IH Q3HRT PRN PRN Reason: Shortness Of Breath Dextrose (D50w (25gm) Syringe) 0 ml IV PRN PRN PRN Reason: Hypoglycemia Heparin Sodium (Porcine) (Heparin) 5,000 unit SUB-Q Q12HR [facility] Levofloxacin/Dextrose (Levaquin 500mg/100ml) 500 mg in 100 mls @ 66.667 mls/hr IV Q48HR [facility]; Protocol Sodium Chloride (Nacl 0.9% 1000 Ml) 1,000 mls @ 125 mls/hr IV DIRECT [facility] Dextrose/Sodium Chloride (D5/0.45ns) 1,000 mls @ 125 mls/hr IV DIRECT [facility] Last Admin: 09/11/17 04:10 Dose: 125 mls/hr Aztreonam 1,000 mg/ Sodium (Chloride) 20 mls @ 2 mls/min IV Q8HR [facility] Insulin Human Isoph/Insulin Regular (Humulin 70/30) 8 unit SUB-Q BIDDIAB [facility] Last Admin: 09/11/17 09:59 Dose: 8 unit Insulin Human Regular (Humulin R) 0 units SUB-Q ACHS [facility]; Protocol Last Admin: 09/11/17 10:00 Dose: Not Given Sodium Chloride (Sodium Chloride Flush Syringe 10 Ml) 10 ml IV BID [facility] Last Admin: 09/11/17 10:04 Dose: 10 ml Sodium Chloride (Sodium Chloride Flush Syringe 10 Ml) 10 ml IV PRN PRN PRN Reason: LINE FLUSH Vancomycin HCl (Vancomycin Pharmacy To Dose) 1 each IV PKCONSULT [facility] Physical Examination Vital Signs Temp Pulse Resp BP Pulse Ox 98.3 F 120 H 18 98/44 99 09/10/17 15:28 09/10/17 15:28 09/10/17 15:28 09/10/17 15:28 09/10/17 15:28 General appearance: no acute distress Cardiac: Positive: Reg Rate and Rhythm Results 09/10/17 15:43 09/11/17 06:57 CBC 09/10/17 Range/Units 15:43 WBC 34.6 H (4.5-11.0) K/mm3 RBC 3.66 (3.65-5.03) M/mm3 Hgb 10.4 (10.1-14.3) gm/dl Hct 31.4 (30.3-42.9) % Plt Count 584 H (140-440) K/mm3 Comprehensive Metabolic Panel 09/10/17 09/10/17 09/10/17 Range/Units 15:34 17:50 19:04 Sodium 124 L 125 L 128 L (137-145) mmol/L Potassium 5.1 H 5.4 H 4.2 D (3.6-5.0) mmol/L Chloride 85.1 L 89.4 L 94.1 L (98-107) mmol/L Carbon Dioxide 16 L 16 L 18 L (22-30) mmol/L BUN 50 H 50 H 46 H (7-17) mg/dL Creatinine 3.1 H 3.2 H 2.7 H (0.7-1.2) mg/dL Glucose 471 H 527 H* 497 H (65-100) mg/dL Calcium 8.9 8.0 L 7.7 L (8.4-10.2) mg/dL 09/10/17 09/10/17 09/11/17 Range/Units 22:06 23:41 06:57 Sodium 131 L 134 L 133 L (137-145) mmol/L Potassium 4.0 4.2 3.3 L D (3.6-5.0) mmol/L Chloride 97.9 L 100.7 99.8 (98-107) mmol/L Carbon Dioxide 15 L 14 L 17 L (22-30) mmol/L BUN 45 H 45 H 40 H (7-17) mg/dL Creatinine 2.6 H 2.6 H 2.1 H (0.7-1.2) mg/dL Glucose 230 H 104 H 132 H (65-100) mg/dL Calcium 7.3 L 7.3 L 7.4 L (8.4-10.2) mg/dL Assessment and Plan DKA Sepsis Acute renal failure We will get an echocardiogram for LVEF assessment.
[2017-09-11] MEDS: AZACTAM 1,000 MG in NACL 0.9% 20 ML IV SCH ×2 (14:07→23:14)
--- NOTE | 2017-09-11 14:31 | Consultation ---
History of Present Illness - Reason for Consult Consult date: 09/11/17 sepsis/GNR bacteremia Requesting physician: ANTHONY DIAZ - History of Present Illness 71 y/o with history of COPD, DM, Nicotine Dependence; admitted on 09/10/17 due to generalized weakness, nausea, vomiting and urinary frequency for a week before admission. Denies any previous UTI, kidney stones. Denies any sick contacts. Denies abdominal pain. Of note, patient has been coughing for the last 3 days, dry cough. Patient is allergic to penicillin which is a remote reaction when she was a child. Reports hives. In the emergency room on initial temperature 98.3 which then went to 102.6. Initial heart rate 120. Respiration 18. O2 sat 99. Blood pressure 98/44. Initial white count 34.6. Hemoglobin 10.4. Platelets 584. Glucose 505. sodium 134. Potassium 5.1. Creatinine 3.1. Lactic acid 2.3. Urinalysis showed large leukocyte esterase and 182 white blood cells. Chest x-ray show bilateral interstitial prominence. 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 denies: prescription drug abuse, IV drug use Family history: no significant family history (Patient was adopted so she does not know about her biological parents and as far she knows she does not have any siblings) Medications and Allergies Allergies Allergy/AdvReac Type Severity Reaction Status Date / Time Penicillins Allergy Unknown Verified 11/16/15 13:37 Active Meds: Active Medications Albuterol (Proventil) 2.5 mg IH Q3HRT PRN PRN Reason: Shortness Of Breath Dextrose (D50w (25gm) Syringe) 0 ml IV PRN PRN PRN Reason: Hypoglycemia Heparin Sodium (Porcine) (Heparin) 5,000 unit SUB-Q Q12HR MARGARET Levofloxacin/Dextrose (Levaquin 500mg/100ml) 500 mg in 100 mls @ 66.667 mls/hr IV Q48HR MARGARET; Protocol Sodium Chloride (Nacl 0.9% 1000 Ml) 1,000 mls @ 125 mls/hr IV DIRECT MARGARET Dextrose/Sodium Chloride (D5/0.45ns) 1,000 mls @ 125 mls/hr IV DIRECT MARGARET Last Admin: 09/11/17 04:10 Dose: 125 mls/hr Aztreonam 1,000 mg/ Sodium (Chloride) 20 mls @ 2 mls/min IV Q8HR MARGARET Last Admin: 09/11/17 14:07 Dose: 2 mls/min Insulin Human Isoph/Insulin Regular (Humulin 70/30) 8 unit SUB-Q BIDDIAB MARGARET Last Admin: 09/11/17 09:59 Dose: 8 unit Insulin Human Regular (Humulin R) 0 units SUB-Q ACHS MARGARET; Protocol Last Admin: 09/11/17 13:29 Dose: Not Given Sodium Chloride (Sodium Chloride Flush Syringe 10 Ml) 10 ml IV BID MARGARET Last Admin: 09/11/17 10:04 Dose: 10 ml Sodium Chloride (Sodium Chloride Flush Syringe 10 Ml) 10 ml IV PRN PRN PRN Reason: LINE FLUSH Review of Systems All systems: negative (as per HPI. Rest of 10 point review of systems negative) Physical Examination - Physical Exam Narrative exam: General appearance: Alert in NAD, conversant Eyes: anicteric sclerae, moist conjunctivae; no lid-lag; PERRLA HENT: Atraumatic; oropharynx clear with moist mucous membranes and no mucosal ulcerations/no oral thrush; normal hard and soft palate. Normal external ears. Neck: Trachea midline; supple, no thyromegaly or lymphadenopathy Lungs: RRL crackles CV: RRR, no murmurs Abdomen: Soft, non-tender; no masses or hepatosplenomegaly Extremities: No peripheral edema or extremity lymphadenopathy Skin: Normal temperature, turgor and texture; no rash, ulcers or subcutaneous nodules Psych: Appropriate affect, alert and oriented to person, place and time. Neuro: alert and oriented x 3. Moving all extermities Lines: No CVL / PICC - Constitutional Vitals: Vital Signs Temp Pulse Resp BP Pulse Ox 102.6 F H 93 H 25 H 107/53 97 09/11/17 04:00 09/11/17 13:10 09/11/17 13:10 09/11/17 13:10 09/11/17 13:10 Temperature -Last 24 Hours Temperature 102.6 F Temperature 97.3 F Temperature 98.9 F Temperature 99.5 F Temperature 98.3 F Results - Labs CBC & Chem 7: 09/10/17 15:43 09/11/17 06:57 Labs: Abnormal lab results 09/10/17 09/10/17 09/10/17 Range/Units 15:34 15:43 17:50 WBC 34.6 H (4.5-11.0) K/mm3 RDW 16.3 H (13.2-15.2) % Plt Count 584 H (140-440) K/mm3 Seg Neuts % (Manual) 94.5 H (40.0-70.0) % Lymphocytes % (Manual) 2.5 L (13.4-35.0) % Seg Neutrophils # Man 32.7 H (1.8-7.7) K/mm3 Lymphocytes # (Manual) 0.9 L (1.2-5.4) K/mm3 VBG pH (7.320-7.420) Sodium 124 L (137-145) mmol/L Potassium 5.1 H (3.6-5.0) mmol/L Chloride 85.1 L (98-107) mmol/L Carbon Dioxide 16 L (22-30) mmol/L BUN 50 H (7-17) mg/dL Creatinine 3.1 H (0.7-1.2) mg/dL Glucose 471 H (65-100) mg/dL POC Glucose (70-105) Lactic Acid (0.7-2.0) mmol/L Calcium (8.4-10.2) mg/dL NT-Pro-B Natriuret Pep 4650 H (0-900) pg/mL Urine WBC (Auto) (0.0-6.0) /HPF Urine Creatinine (0.1-20.0) mg/dL 09/10/17 09/10/17 09/10/17 Range/Units 17:50 17:50 18:27 WBC (4.5-11.0) K/mm3 RDW (13.2-15.2) % Plt Count (140-440) K/mm3 Seg Neuts % (Manual) (40.0-70.0) % Lymphocytes % (Manual) (13.4-35.0) % Seg Neutrophils # Man (1.8-7.7) K/mm3 Lymphocytes # (Manual) (1.2-5.4) K/mm3 VBG pH 7.302 L (7.320-7.420) Sodium 125 L (137-145) mmol/L Potassium 5.4 H (3.6-5.0) mmol/L Chloride 89.4 L (98-107) mmol/L Carbon Dioxide 16 L (22-30) mmol/L BUN 50 H (7-17) mg/dL Creatinine 3.2 H (0.7-1.2) mg/dL Glucose 527 H* (65-100) mg/dL POC Glucose (70-105) Lactic Acid 2.30 H* (0.7-2.0) mmol/L Calcium 8.0 L (8.4-10.2) mg/dL NT-Pro-B Natriuret Pep (0-900) pg/mL Urine WBC (Auto) (0.0-6.0) /HPF Urine Creatinine (0.1-20.0) mg/dL 09/10/17 09/10/17 09/10/17 Range/Units 18:53 19:04 19:15 WBC (4.5-11.0) K/mm3 RDW (13.2-15.2) % Plt Count (140-440) K/mm3 Seg Neuts % (Manual) (40.0-70.0) % Lymphocytes % (Manual) (13.4-35.0) % Seg Neutrophils # Man (1.8-7.7) K/mm3 Lymphocytes # (Manual) (1.2-5.4) K/mm3 VBG pH (7.320-7.420) Sodium 128 L (137-145) mmol/L Potassium (3.6-5.0) mmol/L Chloride 94.1 L (98-107) mmol/L Carbon Dioxide 18 L (22-30) mmol/L BUN 46 H (7-17) mg/dL Creatinine 2.7 H (0.7-1.2) mg/dL Glucose 497 H (65-100) mg/dL POC Glucose > 500 H 495 H (70-105) Lactic Acid (0.7-2.0) mmol/L Calcium 7.7 L (8.4-10.2) mg/dL NT-Pro-B Natriuret Pep (0-900) pg/mL Urine WBC (Auto) (0.0-6.0) /HPF Urine Creatinine (0.1-20.0) mg/dL 09/10/17 09/10/17 09/10/17 Range/Units 21:04 22:06 22:06 WBC (4.5-11.0) K/mm3 RDW (13.2-15.2) % Plt Count (140-440) K/mm3 Seg Neuts % (Manual) (40.0-70.0) % Lymphocytes % (Manual) (13.4-35.0) % Seg Neutrophils # Man (1.8-7.7) K/mm3 Lymphocytes # (Manual) (1.2-5.4) K/mm3 VBG pH (7.320-7.420) Sodium 131 L (137-145) mmol/L Potassium (3.6-5.0) mmol/L Chloride 97.9 L (98-107) mmol/L Carbon Dioxide 15 L (22-30) mmol/L BUN 45 H (7-17) mg/dL Creatinine 2.6 H (0.7-1.2) mg/dL Glucose 230 H (65-100) mg/dL POC Glucose 346 H (70-105) Lactic Acid 2.30 H* (0.7-2.0) mmol/L Calcium 7.3 L (8.4-10.2) mg/dL NT-Pro-B Natriuret Pep (0-900) pg/mL Urine WBC (Auto) (0.0-6.0) /HPF Urine Creatinine (0.1-20.0) mg/dL 09/10/17 09/10/17 09/10/17 Range/Units 23:13 23:41 23:41 WBC (4.5-11.0) K/mm3 RDW (13.2-15.2) % Plt Count (140-440) K/mm3 Seg Neuts % (Manual) (40.0-70.0) % Lymphocytes % (Manual) (13.4-35.0) % Seg Neutrophils # Man (1.8-7.7) K/mm3 Lymphocytes # (Manual) (1.2-5.4) K/mm3 VBG pH (7.320-7.420) Sodium 134 L (137-145) mmol/L Potassium (3.6-5.0) mmol/L Chloride (98-107) mmol/L Carbon Dioxide 14 L (22-30) mmol/L BUN 45 H (7-17) mg/dL Creatinine 2.6 H (0.7-1.2) mg/dL Glucose 104 H (65-100) mg/dL POC Glucose 143 H (70-105) Lactic Acid 2.40 H* (0.7-2.0) mmol/L Calcium 7.3 L (8.4-10.2) mg/dL NT-Pro-B Natriuret Pep (0-900) pg/mL Urine WBC (Auto) (0.0-6.0) /HPF Urine Creatinine (0.1-20.0) mg/dL 09/11/17 09/11/17 09/11/17 Range/Units 00:05 01:07 02:11 WBC (4.5-11.0) K/mm3 RDW (13.2-15.2) % Plt Count (140-440) K/mm3 Seg Neuts % (Manual) (40.0-70.0) % Lymphocytes % (Manual) (13.4-35.0) % Seg Neutrophils # Man (1.8-7.7) K/mm3 Lymphocytes # (Manual) (1.2-5.4) K/mm3 VBG pH (7.320-7.420) Sodium (137-145) mmol/L Potassium (3.6-5.0) mmol/L Chloride (98-107) mmol/L Carbon Dioxide (22-30) mmol/L BUN (7-17) mg/dL Creatinine (0.7-1.2) mg/dL Glucose (65-100) mg/dL POC Glucose 111 H 115 H 185 H (70-105) Lactic Acid (0.7-2.0) mmol/L Calcium (8.4-10.2) mg/dL NT-Pro-B Natriuret Pep (0-900) pg/mL Urine WBC (Auto) (0.0-6.0) /HPF Urine Creatinine (0.1-20.0) mg/dL 09/11/17 09/11/17 09/11/17 Range/Units 02:15 02:15 03:14 WBC (4.5-11.0) K/mm3 RDW (13.2-15.2) % Plt Count (140-440) K/mm3 Seg Neuts % (Manual) (40.0-70.0) % Lymphocytes % (Manual) (13.4-35.0) % Seg Neutrophils # Man (1.8-7.7) K/mm3 Lymphocytes # (Manual) (1.2-5.4) K/mm3 VBG pH (7.320-7.420) Sodium (137-145) mmol/L Potassium (3.6-5.0) mmol/L Chloride (98-107) mmol/L Carbon Dioxide (22-30) mmol/L BUN (7-17) mg/dL Creatinine (0.7-1.2) mg/dL Glucose (65-100) mg/dL POC Glucose 183 H (70-105) Lactic Acid (0.7-2.0) mmol/L Calcium (8.4-10.2) mg/dL NT-Pro-B Natriuret Pep (0-900) pg/mL Urine WBC (Auto) > 182.0 H (0.0-6.0) /HPF Urine Creatinine 29.0 H (0.1-20.0) mg/dL 09/11/17 09/11/17 09/11/17 Range/Units 03:55 04:07 05:09 WBC (4.5-11.0) K/mm3 RDW (13.2-15.2) % Plt Count (140-440) K/mm3 Seg Neuts % (Manual) (40.0-70.0) % Lymphocytes % (Manual) (13.4-35.0) % Seg Neutrophils # Man (1.8-7.7) K/mm3 Lymphocytes # (Manual) (1.2-5.4) K/mm3 VBG pH (7.320-7.420) Sodium (137-145) mmol/L Potassium (3.6-5.0) mmol/L Chloride (98-107) mmol/L Carbon Dioxide (22-30) mmol/L BUN (7-17) mg/dL Creatinine (0.7-1.2) mg/dL Glucose (65-100) mg/dL POC Glucose 132 H 136 H (70-105) Lactic Acid 2.10 H* (0.7-2.0) mmol/L Calcium (8.4-10.2) mg/dL NT-Pro-B Natriuret Pep (0-900) pg/mL Urine WBC (Auto) (0.0-6.0) /HPF Urine Creatinine (0.1-20.0) mg/dL 09/11/17 09/11/17 09/11/17 Range/Units 06:17 06:57 06:59 WBC (4.5-11.0) K/mm3 RDW (13.2-15.2) % Plt Count (140-440) K/mm3 Seg Neuts % (Manual) (40.0-70.0) % Lymphocytes % (Manual) (13.4-35.0) % Seg Neutrophils # Man (1.8-7.7) K/mm3 Lymphocytes # (Manual) (1.2-5.4) K/mm3 VBG pH (7.320-7.420) Sodium 133 L (137-145) mmol/L Potassium 3.3 L D (3.6-5.0) mmol/L Chloride (98-107) mmol/L Carbon Dioxide 17 L (22-30) mmol/L BUN 40 H (7-17) mg/dL Creatinine 2.1 H (0.7-1.2) mg/dL Glucose 132 H (65-100) mg/dL POC Glucose 117 H 132 H (70-105) Lactic Acid (0.7-2.0) mmol/L Calcium 7.4 L (8.4-10.2) mg/dL NT-Pro-B Natriuret Pep (0-900) pg/mL Urine WBC (Auto) (0.0-6.0) /HPF Urine Creatinine (0.1-20.0) mg/dL Assessment and Plan Assessment: 1) Severe Sepsis: Present on admission, manifested by fever, tachycardia, hypotension, leukocytosis, increased lactate. Etiology most likely UTI +/- Asp pneumonia. 2) UTI: Secondary to GNR likely 3) GNR septicemia: source ? UTI 4) ?Aspiration pneumonitis 5) DM with DKA 6) NICKIE 7) Penicillin allergy, remote Plan: -follow-up blood cultures -obtain urine culture -Renal US -continue aztreonam and levaquin for now -stop vancomycin -asked pharmacy for penicillin skin test -repeat CXR -add flagyl to cover anaerobes ? aspiration pneumonia -monitor creatinine Thank you for your consultation, will follow up with you. Gudelia Segura MD Infectious Diseases Specialist [facility] ([facility]) M [phone] O [phone]
--- NOTE | 2017-09-11 14:39 | Ultrasound Report ---
ULTRASOUND RENAL BILATERAL HISTORY: Acute kidney injury. TECHNIQUE: transabdominal ultrasound with color Doppler interrogation. FINDINGS: Scans of the kidneys show normal renal contours. There is normal central calyceal clustering and good preservation of the cortical thickness. There is no evidence of mass or hydronephrosis. The views of the bladder and the region of the ureters appear normal. IMPRESSION: Unremarkable renal ultrasound.
[2017-09-11 16:03] LABS: Creatinine,Urine 54.2 mg/dL (0.1-20.0)
[2017-09-11] MEDS: FLAGYL 500 MG/100 ML 500 MG/100 ML BAG IV SCH (16:32)
[2017-09-11] MEDS: HEPARIN SUB-Q SCH (23:14)
[2017-09-12] MEDS: FLAGYL 500 MG/100 ML 500 MG/100 ML BAG IV SCH ×2 (00:13→08:58)
[2017-09-12 05:26] LABS: Basophils # (Auto) 0.1 K/mm3 (0.0-0.1); Basophils % (Auto) 0.5 % (0.0-1.8); Eosinophils % (Auto) 0.1 % (0.0-4.3); Hematocrit 21.6 % (30.3-42.9); Hemoglobin 7.3 gm/dl (10.1-14.3); Lymphocytes # (Auto) 1.2 K/mm3 (1.2-5.4); Lymphocytes % (Auto) 7.6 % (13.4-35.0); Mean Corpuscular HGB Conc 34 % (30-34); Mean Corpuscular Hemoglobin 29 pg (28-32); Mean Corpuscular Volume 86 fl (79-97); Monocytes # (Auto) 0.7 K/mm3 (0.0-0.8); Monocytes % (Auto) 4.2 % (0.0-7.3); Platelet Count 399 K/mm3 (140-440); Red Blood Count 2.51 M/mm3 (3.65-5.03); Red Cell Distribution Width 16.6 % (13.2-15.2)
[2017-09-12 05:55] LABS: Albumin 2.6 g/dL (3.9-5)
[2017-09-12] MEDS: TYLENOL PO PRN ×3 (06:11→20:29)
[2017-09-12] MEDS: AZACTAM 1,000 MG in NACL 0.9% 20 ML IV SCH ×3 (06:12→23:43)
--- NOTE | 2017-09-12 08:12 | Progress Note ---
Assessment and Plan Assessment and plan: --Significant drop in H&H/anemia No evidence of external bleeding, repeat H&H Transfuse as needed, stool for occult blood --Hypo-phosphatemia; replenish per protocol --Hypomagnesemia; replace per protocol --Sepsis secondary to Possible aspiration pneumonia; Continue aztreonam, Levaquin and Flagyl, ID following Repeat chest x-ray 2 views --Gram-negative sepsis/the gram-negative bacteremia; Continue current antibiotics, repeat cultures, ID consultation --Sepsis secondary to urinary tract infection; present on admission --Diabetic ketoacidosis; resolved --Type 2 diabetes mellitus; continue Accu-Chek sliding scale coverage and ADA diet and insulin --Hyponatremia; pseudohyponatremia due to hyperglycemia, Sodium levels 131 today --Leukocytosis; secondary to sepsis due to bronchitis pneumonitis --Congestive heart failure; probably systolic dysfunction, unknown ejection fraction, follow echocardiogram, cardiology consulted --Acute kidney injury; vasomotor nephropathy Renal function significantly improved Gentle hydration in view of congestive heart failure, closely monitor renal function, avoid nephrotoxic medications, nephrology consultation --DVT prophylaxis; SCDs, DC heparin in view of anemia and heme-positive stool Consults and recommendations noted and appreciated Plan of care discussed with the patient and her nurse History Interval history: Patient seen and examined medical records reviewed Complaints of generalized weakness Febrile MAXIMUM TEMPERATURE 102.9 Mild drop in H&H No evidence of bleeding Vital signs reviewed Hospitalist Physical - Constitutional Vitals: Temp Pulse Resp BP Pulse Ox 99.4 F 102 H 18 117/60 94 09/11/17 21:48 09/11/17 21:48 09/11/17 21:48 09/11/17 21:48 09/11/17 21:48 General appearance: Present: mild distress, well-nourished - EENT Eyes: Present: PERRL, EOM intact - Neck Neck: Present: supple, normal ROM - Respiratory Respiratory effort: normal Respiratory: bilateral: diminished, rhonchi, negative: rales, wheezing - Cardiovascular Rhythm: regular Heart Sounds: Present: S1 & S2 - Extremities Extremities: no ischemia, No edema - Abdominal General gastrointestinal: soft, non-tender, non-distended, normal bowel sounds - Integumentary Integumentary: Present: clear, warm, pale - Psychiatric Psychiatric: appropriate mood/affect, cooperative - Neurologic Neurologic: moves all extremities Results - Labs CBC & Chem 7: 09/12/17 08:51 09/12/17 05:14 Labs: Laboratory Last Values WBC 16.2 K/mm3 (4.5-11.0) H 09/12/17 05:14 RBC 2.51 M/mm3 (3.65-5.03) L 09/12/17 05:14 Hgb 7.3 gm/dl (10.1-14.3) L D 09/12/17 05:14 Hct 21.6 % (30.3-42.9) L D 09/12/17 05:14 MCV 86 fl (79-97) 09/12/17 05:14 MCH 29 pg (28-32) 09/12/17 05:14 MCHC 34 % (30-34) 09/12/17 05:14 RDW 16.6 % (13.2-15.2) H 09/12/17 05:14 Plt Count 399 K/mm3 (140-440) 09/12/17 05:14 Lymph % (Auto) 7.6 % (13.4-35.0) L 09/12/17 05:14 [place] % (Auto) 4.2 % (0.0-7.3) 09/12/17 05:14 Eos % (Auto) 0.1 % (0.0-4.3) 09/12/17 05:14 Baso % (Auto) 0.5 % (0.0-1.8) 09/12/17 05:14 Lymph # 1.2 K/mm3 (1.2-5.4) 09/12/17 05:14 [place] # 0.7 K/mm3 (0.0-0.8) 09/12/17 05:14 Eos # 0.0 K/mm3 (0.0-0.4) 09/12/17 05:14 Baso # 0.1 K/mm3 (0.0-0.1) 09/12/17 05:14 Add Manual Diff Complete 09/10/17 15:43 Total Counted 200 09/10/17 15:43 Seg Neutrophils % 87.6 % (40.0-70.0) H 09/12/17 05:14 Seg Neuts % (Manual) 94.5 % (40.0-70.0) H 09/10/17 15:43 Band Neutrophils % 0 % 09/10/17 15:43 Lymphocytes % (Manual) 2.5 % (13.4-35.0) L 09/10/17 15:43 Reactive Lymphs % (Man) 0 % 09/10/17 15:43 Monocytes % (Manual) 2.0 % (0.0-7.3) 09/10/17 15:43 Eosinophils % (Manual) 0 % (0.0-4.3) 09/10/17 15:43 Basophils % (Manual) 0 % (0.0-1.8) 09/10/17 15:43 Metamyelocytes % 0.5 % 09/10/17 15:43 Myelocytes % 0.5 % 09/10/17 15:43 Promyelocytes % 0 % 09/10/17 15:43 Blast Cells % 0 % 09/10/17 15:43 Nucleated RBC % Not Reportable 09/10/17 15:43 Seg Neutrophils # 14.2 K/mm3 (1.8-7.7) H 09/12/17 05:14 Seg Neutrophils # Man 32.7 K/mm3 (1.8-7.7) H 09/10/17 15:43 Band Neutrophils # 0.0 K/mm3 09/10/17 15:43 Lymphocytes # (Manual) 0.9 K/mm3 (1.2-5.4) L 09/10/17 15:43 Abs React Lymphs (Man) 0.0 K/mm3 09/10/17 15:43 Monocytes # (Manual) 0.7 K/mm3 (0.0-0.8) 09/10/17 15:43 Eosinophils # (Manual) 0.0 K/mm3 (0.0-0.4) 09/10/17 15:43 Basophils # (Manual) 0.0 K/mm3 (0.0-0.1) 09/10/17 15:43 Metamyelocytes # 0.2 K/mm3 09/10/17 15:43 Myelocytes # 0.2 K/mm3 09/10/17 15:43 Promyelocytes # 0.0 K/mm3 09/10/17 15:43 Blast Cells # 0.0 K/mm3 09/10/17 15:43 Pathologist Review 09/10/17 15:43 WBC Morphology Not Reportable 09/10/17 15:43 Hypersegmented Neuts Not Reportable 09/10/17 15:43 Hyposegmented Neuts Not Reportable 09/10/17 15:43 Hypogranular Neuts Not Reportable 09/10/17 15:43 Smudge Cells Not Reportable 09/10/17 15:43 Toxic Granulation Not Reportable 09/10/17 15:43 Toxic Vacuolation Not Reportable 09/10/17 15:43 Dohle Bodies Not Reportable 09/10/17 15:43 Pelger-Huet Anomaly Not Reportable 09/10/17 15:43 Cecilia Rods Not Reportable 09/10/17 15:43 Platelet Estimate Appears increased 09/10/17 15:43 Clumped Platelets Not Reportable 09/10/17 15:43 Plt Clumps, EDTA Not Reportable 09/10/17 15:43 Large Platelets Not Reportable 09/10/17 15:43 Giant Platelets Not Reportable 09/10/17 15:43 Platelet Satelliting Not Reportable 09/10/17 15:43 Plt Morphology Comment Not Reportable 09/10/17 15:43 RBC Morphology Not Reportable 09/10/17 15:43 Dimorphic RBCs Not Reportable 09/10/17 15:43 Polychromasia Not Reportable 09/10/17 15:43 Hypochromasia Not Reportable 09/10/17 15:43 Poikilocytosis Few 09/10/17 15:43 Anisocytosis Few 09/10/17 15:43 Microcytosis Not Reportable 09/10/17 15:43 Macrocytosis Not Reportable 09/10/17 15:43 Spherocytes Not Reportable 09/10/17 15:43 Pappenheimer Bodies Not Reportable 09/10/17 15:43 Sickle Cells Not Reportable 09/10/17 15:43 Target Cells Not Reportable 09/10/17 15:43 Tear Drop Cells Not Reportable 09/10/17 15:43 Ovalocytes Not Reportable 09/10/17 15:43 Helmet Cells Not Reportable 09/10/17 15:43 [place] Bodies Not Reportable 09/10/17 15:43 [place] Rings Not Reportable 09/10/17 15:43 [place] Cells Not Reportable 09/10/17 15:43 Bite Cells Not Reportable 09/10/17 15:43 Crenated Cell Not Reportable 09/10/17 15:43 Elliptocytes Not Reportable 09/10/17 15:43 Acanthocytes (Spur) Not Reportable 09/10/17 15:43 Rouleaux Not Reportable 09/10/17 15:43 Hemoglobin C Crystals Not Reportable 09/10/17 15:43 Schistocytes Not Reportable 09/10/17 15:43 Malaria parasites Not Reportable 09/10/17 15:43 Jose A Bodies Not Reportable 09/10/17 15:43 Hem Pathologist Commnt Sent to pathology 09/10/17 15:43 VBG pH 7.302 (7.320-7.420) L 09/10/17 17:50 Sodium 131 mmol/L (137-145) L 09/12/17 05:14 Potassium 3.7 mmol/L (3.6-5.0) 09/12/17 05:14 Chloride 101.0 mmol/L (98-107) 09/12/17 05:14 Carbon Dioxide 15 mmol/L (22-30) L 09/12/17 05:14 Anion Gap 19 mmol/L 09/12/17 05:14 BUN 29 mg/dL (7-17) H 09/12/17 05:14 Creatinine 1.3 mg/dL (0.7-1.2) H 09/12/17 05:14 Estimated GFR 40 ml/min 09/12/17 05:14 BUN/Creatinine Ratio 22 % 09/12/17 05:14 Glucose 204 mg/dL (65-100) H 09/12/17 05:14 POC Glucose 203 (70-105) H 09/12/17 07:42 Lactic Acid 1.40 mmol/L (0.7-2.0) 09/11/17 06:57 Calcium 7.0 mg/dL (8.4-10.2) L 09/12/17 05:14 Phosphorus 2.20 mg/dL (2.5-4.5) L D 09/12/17 05:14 Magnesium 1.40 mg/dL (1.7-2.3) L 09/12/17 05:14 Total Bilirubin 0.20 mg/dL (0.1-1.2) 09/12/17 05:14 AST 9 units/L (5-40) 09/12/17 05:14 ALT 7 units/L (7-56) 09/12/17 05:14 Alkaline Phosphatase 115 units/L (35-129) 09/12/17 05:14 NT-Pro-B Natriuret Pep 4650 pg/mL (0-900) H 09/10/17 17:50 Total Protein 5.2 g/dL (6.3-8.2) L 09/12/17 05:14 Albumin 2.6 g/dL (3.9-5) L 09/12/17 05:14 Albumin/Globulin Ratio 1.0 % 09/12/17 05:14 Urine Color Yellow (Yellow) 09/11/17 02:15 Urine Turbidity Clear (Clear) 09/11/17 02:15 Urine pH 6.0 (5.0-7.0) 09/11/17 02:15 Ur Specific [place] 1.008 (1.003-1.030) 09/11/17 02:15 Urine Protein 30 mg/dl mg/dL (Negative) 09/11/17 02:15 Urine Glucose (UA) 50 mg/dL (Negative) 09/11/17 02:15 Urine Ketones Neg mg/dL (Negative) 09/11/17 02:15 Urine Blood Lg (Negative) 09/11/17 02:15 Urine Nitrite Neg (Negative) 09/11/17 02:15 Urine Bilirubin Neg (Negative) 09/11/17 02:15 Urine Urobilinogen < 2.0 mg/dL (<2.0) 09/11/17 02:15 Ur Leukocyte Esterase Lg (Negative) 09/11/17 02:15 Urine WBC (Auto) > 182.0 /HPF (0.0-6.0) H 09/11/17 02:15 Urine RBC (Auto) 25.0 /HPF (0.0-6.0) 09/11/17 02:15 U Epithel Cells (Auto) 6.0 /HPF (0-13.0) 09/11/17 02:15 Urine Bacteria (Auto) 4+ /HPF (Negative) 09/11/17 02:15 Urine WBC Clumps 3+ /HPF 09/11/17 02:15 Urine Creatinine 54.2 mg/dL (0.1-20.0) H 09/11/17 10:13 Urine Microalbumin 8.7 mg/dL (0.1-34.0) 09/11/17 02:15 Microalb/Creat Ratio 300.0 ug/mg 09/11/17 02:15 Urine Sodium 73 mmol/L 09/11/17 02:15 Urine Total Protein 49 mg/dL (5-11.8) H 09/11/17 10:13 Blood Type A POSITIVE 09/10/17 19:04 Antibody Screen Negative 09/10/17 19:04
[2017-09-12] MEDS: HumuLIN R SUB-Q SCH ×4 (08:30→23:45)
--- NOTE | 2017-09-12 08:46 | Progress Note ---
Assessment and Plan - Patient Problems (1) Acute kidney injury Current Visit: Yes Status: Acute Plan to address problem: Prerenal azotemia versus acute tubular necrosis secondary to hypotension and sepsis. I suspect baseline chronic kidney disease secondary to diabetic nephropathy with proteinuria on urinalysis. Exact stage unknown. We'll request records from primary care physician. Kidney function is improving with volume resuscitation and antibiotics. Continue volume repletion. Quantify proteinuria. Get renal ultrasound to exclude obstruction. Follow-up electrolytes and renal function. (2) Hyponatremia Current Visit: Yes Status: Acute Plan to address problem: Hypovolemic hyponatremia with factitious hyponatremia secondary to hyperglycemia. Sodium improving with volume status resuscitation and control of hyperglycemia. (3) DKA (diabetic ketoacidosis) Current Visit: Yes Status: Acute Qualifiers: Diabetes mellitus type: type 2 Diabetes mellitus complication detail: without coma Qualified Code(s): E11.10 - Type 2 diabetes mellitus with ketoacidosis without coma Plan to address problem: Continue insulin. 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 Potassium is now normal with correction of diabetic ketoacidosis. (5) Sepsis due to Gram negative bacteria Current Visit: Yes Status: Acute Plan to address problem: Source possibly urinary tract infection. Follow-up urine culture. Follow up final ID and sensitivity of blood cultures. I agree with double gram-negative coverage (6) Anemia Current Visit: Yes Status: Acute Plan to address problem: Follow-up hemoglobin (7) Acidosis Current Visit: Yes Status: Acute Plan to address problem: Improving with improved blood sugar control. Continue to follow (8) Hypomagnesemia Current Visit: Yes Status: Acute Plan to address problem: Supplement magnesium and follow-up level (9) Hypophosphatemia Current Visit: Yes Status: Acute Plan to address problem: Supplement phosphorus on follow-up level Subjective Date of service: 09/12/17 Principal diagnosis: acute kidney injury Interval history: Patient seen lying in bed. She feels a bit better. No nausea or vomiting overnight. Still has loose bowel movements. Objective - Exam Narrative Exam: Elderly female lying in bed in no acute distress HEENT: NCAT, pink oral mucous membrane Neck: Supple, no venous distention CVS: S1S2 RRR with no murmur, rub or gallop Chest: Clear to auscultation Abdomen: Protuberant, soft, nontender, no organomegaly, bowel sounds are present Extremities: No edema, no clubbing Skin: Warm and dry, no rash Neuro: Awake, alert no focal deficits - Vital Signs Vital signs: Vital Signs - 12hr 09/11/17 09/11/17 21:22 21:48 Temperature 99.4 F Pulse Rate 102 H Respiratory 18 Rate Blood Pressure 117/60 O2 Sat by Pulse 94 94 Oximetry - Lab 09/12/17 05:14 09/12/17 05:14 Most recent lab results Calcium 7.0 mg/dL (8.4-10.2) L 09/12/17 05:14 Phosphorus 2.20 mg/dL (2.5-4.5) L D 09/12/17 05:14 Magnesium 1.40 mg/dL (1.7-2.3) L 09/12/17 05:14 Urine Creatinine 54.2 mg/dL (0.1-20.0) H 09/11/17 10:13 Urine Sodium 73 mmol/L 09/11/17 02:15 Urine Total Protein 49 mg/dL (5-11.8) H 09/11/17 10:13
[2017-09-12] MEDS ORDERED: SODIUM PHOSPHATE 30 MMOL in NACL 0.9% 500 ML 500 ML IV ONE (09:00)
[2017-09-12] MEDS ORDERED: MAGNESIUM SULFATE 2GM/50ML 2 GM/50 ML BAG IV ONE (09:00)
[2017-09-12] MEDS: HEPARIN SUB-Q SCH (09:00)
[2017-09-12] MEDS: SODIUM CHLORIDE FLUSH SYRINGE 10 ML IV SCH ×2 (09:01→23:43)
[2017-09-12 09:33] LABS: Hematocrit 21.3 % (30.3-42.9); Hemoglobin 7.3 gm/dl (10.1-14.3)
[2017-09-12] MEDS ORDERED: LEVAQUIN 500MG/100ML 500 MG/100 ML BAG IV SCH (10:00)
[2017-09-12] MEDS ORDERED: NACL 0.9% 500 ML 500 ML IV NR (10:00)
--- NOTE | 2017-09-12 11:12 | Progress Note ---
Assessment and Plan DKA Sepsis Acute renal failure UTI Anemia We will get an echocardiogram for LVEF assessment. Subjective Date of service: 09/12/17 Principal diagnosis: acute kidney injury Interval history: Patient is resting in bed comfortably. Noted a significant drop in H&H, from on admission 2 days ago to 7.3/ today. Objective Vital Signs Temp Pulse Resp BP Pulse Ox 09/12/17 08:57 95 09/11/17 21:48 99.4 F 102 H 18 117/60 94 09/11/17 21:22 94 09/11/17 15:50 102.9 F H 126 H 18 159/84 97 09/11/17 13:10 93 H 25 H 107/53 97 09/11/17 13:00 92 H 22 107/53 97 09/11/17 12:50 92 H 16 107/50 99 09/11/17 12:40 93 H 19 107/50 99 09/11/17 12:30 94 H 18 107/50 99 09/11/17 12:20 88 17 107/50 98 09/11/17 12:10 90 13 107/50 98 09/11/17 12:00 82 17 85/42 98 09/11/17 11:50 82 21 101/45 97 09/11/17 11:40 86 22 101/45 97 09/11/17 11:30 87 23 101/45 97 09/11/17 11:20 90 20 101/45 98 09/11/17 11:10 92 H 23 101/45 98 - Physical Examination General: No Apparent Distress Cardiac: Positive: Reg Rate and Rhythm - Labs and Meds Cardiac Enzymes 09/12/17 Range/Units 05:14 AST 9 (5-40) units/L CBC 09/12/17 09/12/17 Range/Units 05:14 08:51 WBC 16.2 H (4.5-11.0) K/mm3 RBC 2.51 L (3.65-5.03) M/mm3 Hgb 7.3 L D 7.3 L (10.1-14.3) gm/dl Hct 21.6 L D 21.3 L (30.3-42.9) % Plt Count 399 (140-440) K/mm3 Lymph # 1.2 (1.2-5.4) K/mm3 [place] # 0.7 (0.0-0.8) K/mm3 Eos # 0.0 (0.0-0.4) K/mm3 Baso # 0.1 (0.0-0.1) K/mm3 Comprehensive Metabolic Panel 09/12/17 Range/Units 05:14 Sodium 131 L (137-145) mmol/L Potassium 3.7 (3.6-5.0) mmol/L Chloride 101.0 (98-107) mmol/L Carbon Dioxide 15 L (22-30) mmol/L BUN 29 H (7-17) mg/dL Creatinine 1.3 H (0.7-1.2) mg/dL Glucose 204 H (65-100) mg/dL Calcium 7.0 L (8.4-10.2) mg/dL AST 9 (5-40) units/L ALT 7 (7-56) units/L Alkaline Phosphatase 115 (35-129) units/L Total Protein 5.2 L (6.3-8.2) g/dL Albumin 2.6 L (3.9-5) g/dL
--- NOTE | 2017-09-12 14:12 | XRay Report ---
ROUTINE CHEST, TWO VIEWS: HISTORY: Follow up pneumonia. The lungs are clear on today's exam. Slightly prominent interstitial markings bilaterally and particularly in the left lower lobe have resolved. Normal heart and mediastinal structures. The bony thorax is intact. IMPRESSION: Unremarkable chest x-ray.
--- NOTE | 2017-09-12 14:14 | Progress Note ---
Assessment and Plan 71 y/o female with newly diagnosed diabetes and DKA, also with GNR bacteremia and acute renal failure. 1. Critical care issues resolved 2. Stable on room air 3. Will sign off. Subjective Date of service: 09/12/17 Principal diagnosis: acute kidney injury Interval history: No acute events. Successful transfer out of unit. CXR ordered by ID. Reviewed today and appears to be clear. WC improved and no further fever. DKA resolved. Objective - Constitutional Vitals: Vital Signs - 12hr 09/12/17 08:57 O2 Sat by Pulse 95 Oximetry General appearance: Present: no acute distress - EENT Eyes: PERRL, EOM intact ENT: hearing intact - Neck Neck: supple, normal ROM - Respiratory Respiratory effort: normal Respiratory: bilateral: CTA - Breasts Breasts: deferred - Cardiovascular Rhythm: regular Heart Sounds: Present: S1 & S2 Extremities: no ischemia - Gastrointestinal General gastrointestinal: Present: soft, non-tender Rectal Exam: deferred - Genitourinary Female genitourinary: deferred - Labs CBC & Chem 7: 09/12/17 08:51 09/12/17 05:14 Labs: Abnormal lab results 09/10/17 09/11/17 09/11/17 Range/Units 19:04 08:26 10:07 WBC (4.5-11.0) K/mm3 RBC (3.65-5.03) M/mm3 Hgb (10.1-14.3) gm/dl Hct (30.3-42.9) % RDW (13.2-15.2) % Lymph % (Auto) (13.4-35.0) % Seg Neutrophils % (40.0-70.0) % Seg Neutrophils # (1.8-7.7) K/mm3 Sodium (137-145) mmol/L Carbon Dioxide (22-30) mmol/L BUN (7-17) mg/dL Creatinine (0.7-1.2) mg/dL Glucose (65-100) mg/dL POC Glucose 162 H 154 H (70-105) Calcium (8.4-10.2) mg/dL Phosphorus (2.5-4.5) mg/dL Magnesium (1.7-2.3) mg/dL Total Protein (6.3-8.2) g/dL Albumin (3.9-5) g/dL Urine Creatinine (0.1-20.0) mg/dL Urine Total Protein (5-11.8) mg/dL Crossmatch See Detail 09/11/17 09/11/17 09/11/17 Range/Units 10:13 12:14 16:02 WBC (4.5-11.0) K/mm3 RBC (3.65-5.03) M/mm3 Hgb (10.1-14.3) gm/dl Hct (30.3-42.9) % RDW (13.2-15.2) % Lymph % (Auto) (13.4-35.0) % Seg Neutrophils % (40.0-70.0) % Seg Neutrophils # (1.8-7.7) K/mm3 Sodium (137-145) mmol/L Carbon Dioxide (22-30) mmol/L BUN (7-17) mg/dL Creatinine (0.7-1.2) mg/dL Glucose (65-100) mg/dL POC Glucose 149 H 162 H (70-105) Calcium (8.4-10.2) mg/dL Phosphorus (2.5-4.5) mg/dL Magnesium (1.7-2.3) mg/dL Total Protein (6.3-8.2) g/dL Albumin (3.9-5) g/dL Urine Creatinine 54.2 H (0.1-20.0) mg/dL Urine Total Protein 49 H (5-11.8) mg/dL Crossmatch 09/11/17 09/12/17 09/12/17 Range/Units 22:51 05:14 05:14 WBC 16.2 H (4.5-11.0) K/mm3 RBC 2.51 L (3.65-5.03) M/mm3 Hgb 7.3 L D (10.1-14.3) gm/dl Hct 21.6 L D (30.3-42.9) % RDW 16.6 H (13.2-15.2) % Lymph % (Auto) 7.6 L (13.4-35.0) % Seg Neutrophils % 87.6 H (40.0-70.0) % Seg Neutrophils # 14.2 H (1.8-7.7) K/mm3 Sodium 131 L (137-145) mmol/L Carbon Dioxide 15 L (22-30) mmol/L BUN 29 H (7-17) mg/dL Creatinine 1.3 H (0.7-1.2) mg/dL Glucose 204 H (65-100) mg/dL POC Glucose 205 H (70-105) Calcium 7.0 L (8.4-10.2) mg/dL Phosphorus 2.20 L D (2.5-4.5) mg/dL Magnesium 1.40 L (1.7-2.3) mg/dL Total Protein 5.2 L (6.3-8.2) g/dL Albumin 2.6 L (3.9-5) g/dL Urine Creatinine (0.1-20.0) mg/dL Urine Total Protein (5-11.8) mg/dL Crossmatch 09/12/17 09/12/17 09/12/17 Range/Units 07:42 08:51 13:53 WBC (4.5-11.0) K/mm3 RBC (3.65-5.03) M/mm3 Hgb 7.3 L (10.1-14.3) gm/dl Hct 21.3 L (30.3-42.9) % RDW (13.2-15.2) % Lymph % (Auto) (13.4-35.0) % Seg Neutrophils % (40.0-70.0) % Seg Neutrophils # (1.8-7.7) K/mm3 Sodium (137-145) mmol/L Carbon Dioxide (22-30) mmol/L BUN (7-17) mg/dL Creatinine (0.7-1.2) mg/dL Glucose (65-100) mg/dL POC Glucose 203 H 188 H (70-105) Calcium (8.4-10.2) mg/dL Phosphorus (2.5-4.5) mg/dL Magnesium (1.7-2.3) mg/dL Total Protein (6.3-8.2) g/dL Albumin (3.9-5) g/dL Urine Creatinine (0.1-20.0) mg/dL Urine Total Protein (5-11.8) mg/dL Crossmatch
--- NOTE | 2017-09-12 15:47 | Progress Note ---
Assessment and Plan Assessment: 1) Severe Sepsis: better, still fever and leukocytosis improving 34-->16K. Etiology most likely UTI +/- Asp pneumonia. 2) UTI: urine cx grew>100K mixed bacterai. US renal no hydro or stones. 3) GNR septicemia: source ? UTI 4) ?Aspiration pneumonitis: repeat CXR neg 5) DM with DKA - better 6) NICKIE - better 7) Penicillin allergy, remote Plan: -repeat blood cultures -continue aztreonam, levaquin D2 -stop flagyl - repeat CXR neg -pharmacy for penicillin skin test - pending -monitor creatinine Thank you for your consultation, will follow up with you. Gudelia Segura MD Infectious Diseases Specialist [facility] M [phone] O [phone] Subjective Date of service: 09/12/17 Principal diagnosis: acute kidney injury Interval history: feels better, still fever 102. Microbiology: Blood cultures: 09/10 GNR 4 of 4 bottles 09/11 GNR 1 of 4 Urine cultures: 09/11 >100K mixed bacteria Current Antimicrobials: Vancomycin Aztreonam Levaquin Previous Antimicrobials: Objective - Constitutional Vitals: Vital Signs Temp Pulse Resp BP Pulse Ox 97.9 F 78 18 119/60 99 09/12/17 14:31 09/12/17 14:31 09/12/17 14:31 09/12/17 14:31 09/12/17 14:31 Temperature -Last 24 Hours Temperature 97.9 F Temperature 99.4 F Temperature 102.7 F Temperature 99.4 F Temperature 102.9 F - Labs CBC & Chem 7: 09/12/17 08:51 09/12/17 05:14 Labs: Abnormal lab results 09/10/17 09/11/17 09/11/17 Range/Units 19:04 08:26 10:07 WBC (4.5-11.0) K/mm3 RBC (3.65-5.03) M/mm3 Hgb (10.1-14.3) gm/dl Hct (30.3-42.9) % RDW (13.2-15.2) % Lymph % (Auto) (13.4-35.0) % Seg Neutrophils % (40.0-70.0) % Seg Neutrophils # (1.8-7.7) K/mm3 Sodium (137-145) mmol/L Carbon Dioxide (22-30) mmol/L BUN (7-17) mg/dL Creatinine (0.7-1.2) mg/dL Glucose (65-100) mg/dL POC Glucose 162 H 154 H (70-105) Calcium (8.4-10.2) mg/dL Phosphorus (2.5-4.5) mg/dL Magnesium (1.7-2.3) mg/dL Total Protein (6.3-8.2) g/dL Albumin (3.9-5) g/dL Urine Creatinine (0.1-20.0) mg/dL Urine Total Protein (5-11.8) mg/dL Crossmatch See Detail 09/11/17 09/11/17 09/11/17 Range/Units 10:13 12:14 16:02 WBC (4.5-11.0) K/mm3 RBC (3.65-5.03) M/mm3 Hgb (10.1-14.3) gm/dl Hct (30.3-42.9) % RDW (13.2-15.2) % Lymph % (Auto) (13.4-35.0) % Seg Neutrophils % (40.0-70.0) % Seg Neutrophils # (1.8-7.7) K/mm3 Sodium (137-145) mmol/L Carbon Dioxide (22-30) mmol/L BUN (7-17) mg/dL Creatinine (0.7-1.2) mg/dL Glucose (65-100) mg/dL POC Glucose 149 H 162 H (70-105) Calcium (8.4-10.2) mg/dL Phosphorus (2.5-4.5) mg/dL Magnesium (1.7-2.3) mg/dL Total Protein (6.3-8.2) g/dL Albumin (3.9-5) g/dL Urine Creatinine 54.2 H (0.1-20.0) mg/dL Urine Total Protein 49 H (5-11.8) mg/dL Crossmatch 09/11/17 09/12/17 09/12/17 Range/Units 22:51 05:14 05:14 WBC 16.2 H (4.5-11.0) K/mm3 RBC 2.51 L (3.65-5.03) M/mm3 Hgb 7.3 L D (10.1-14.3) gm/dl Hct 21.6 L D (30.3-42.9) % RDW 16.6 H (13.2-15.2) % Lymph % (Auto) 7.6 L (13.4-35.0) % Seg Neutrophils % 87.6 H (40.0-70.0) % Seg Neutrophils # 14.2 H (1.8-7.7) K/mm3 Sodium 131 L (137-145) mmol/L Carbon Dioxide 15 L (22-30) mmol/L BUN 29 H (7-17) mg/dL Creatinine 1.3 H (0.7-1.2) mg/dL Glucose 204 H (65-100) mg/dL POC Glucose 205 H (70-105) Calcium 7.0 L (8.4-10.2) mg/dL Phosphorus 2.20 L D (2.5-4.5) mg/dL Magnesium 1.40 L (1.7-2.3) mg/dL Total Protein 5.2 L (6.3-8.2) g/dL Albumin 2.6 L (3.9-5) g/dL Urine Creatinine (0.1-20.0) mg/dL Urine Total Protein (5-11.8) mg/dL Crossmatch 09/12/17 09/12/17 09/12/17 Range/Units 07:42 08:51 13:53 WBC (4.5-11.0) K/mm3 RBC (3.65-5.03) M/mm3 Hgb 7.3 L (10.1-14.3) gm/dl Hct 21.3 L (30.3-42.9) % RDW (13.2-15.2) % Lymph % (Auto) (13.4-35.0) % Seg Neutrophils % (40.0-70.0) % Seg Neutrophils # (1.8-7.7) K/mm3 Sodium (137-145) mmol/L Carbon Dioxide (22-30) mmol/L BUN (7-17) mg/dL Creatinine (0.7-1.2) mg/dL Glucose (65-100) mg/dL POC Glucose 203 H 188 H (70-105) Calcium (8.4-10.2) mg/dL Phosphorus (2.5-4.5) mg/dL Magnesium (1.7-2.3) mg/dL Total Protein (6.3-8.2) g/dL Albumin (3.9-5) g/dL Urine Creatinine (0.1-20.0) mg/dL Urine Total Protein (5-11.8) mg/dL Crossmatch
[2017-09-12] MEDS ORDERED: APRESOLINE IV PRN (19:07)
[2017-09-12] MEDS ORDERED: BENADRYL PO ONE (19:10)
[2017-09-12] MEDS ORDERED: LOPRESSOR IV ONE (20:03)
[2017-09-12] MEDS: ZOFRAN IV PRN (21:12)
[2017-09-13] MEDS: AZACTAM 1,000 MG in NACL 0.9% 20 ML IV SCH ×2 (05:39→13:16)
[2017-09-13 06:00] LABS: Hematocrit 26.2 % (30.3-42.9); Hemoglobin 8.7 gm/dl (10.1-14.3); Mean Corpuscular HGB Conc 33 % (30-34); Mean Corpuscular Hemoglobin 28 pg (28-32); Mean Corpuscular Volume 84 fl (79-97); Platelet Count 355 K/mm3 (140-440); Red Blood Count 3.13 M/mm3 (3.65-5.03); Red Cell Distribution Width 16.6 % (13.2-15.2)
[2017-09-13 06:11] LABS: INR 1.18 (0.87-1.13)
[2017-09-13 06:37] LABS: Calcium 7.7 mg/dL (8.4-10.2)
[2017-09-13] MEDS: HumuLIN R SUB-Q SCH ×3 (07:29→16:40)
[2017-09-13 07:49] LABS: Band Neutrophils # (Manual) 3.5 K/mm3; Basophils % (Manual) 0 % (0.0-1.8); Eosinophils % (Manual) 0 % (0.0-4.3); Monocytes % (Manual) 0 % (0.0-7.3); Total Cells Counted 100
[2017-09-13 07:50] LABS: Anisocytosis 1+; Burr Cells Few; Large Platelets Few; Ovalocytes Few; Platelet Clumps Rare
[2017-09-13] MEDS: SODIUM CHLORIDE FLUSH SYRINGE 10 ML IV SCH (08:59)
[2017-09-13] MEDS: PROTONIX IV SCH (09:53)
--- NOTE | 2017-09-13 09:54 | Gastroenterology Consultation ---
History of Present Illness - Reason for Consult Consult date: 09/13/17 anemia, heme positive stool Requesting physician: ANTHONY DIAZ - History of Present Illness Patient is a 71 y/o female with PMH of COPD, DM, and nicotine dependence who was admitted for DKA and sepsis. She had a drop in her H/H yesterday from 10.4/ 31.4 on admission to 7.3/21.6 with stool found to be heme positive to which GI has been consulted. This morning pt was returning to bed from the restroom w/o acute distress. She denies any active signs of bleeding such as hematemesis, melena, or hematemesis. BM x 1 this am with brown stool. Had 1 episode of N/V this am with non-bloody emesis. Denies CP, SOB, dizziness, wt loss, abd pain, dysphagia, odynophagia, diarrhea, or constipation. No hx of PUD. No NSAID use. No previous EGD/colonoscopy. No Fhx of GI cancers. 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 denies: prescription drug abuse, IV drug use Family history: no significant family history (Patient was adopted so she does not know about her biological parents and as far she knows she does not have any siblings) Medications and Allergies Allergies Allergy/AdvReac Type Severity Reaction Status Date / Time Penicillins Allergy Unknown Verified 11/16/15 13:37 Active Meds: Active Medications Acetaminophen (Tylenol) 650 mg PO Q4H PRN PRN Reason: Pain, Mild (1-3) Last Admin: 09/12/17 20:29 Dose: 650 mg Albuterol (Proventil) 2.5 mg IH Q3HRT PRN PRN Reason: Shortness Of Breath Dextrose (D50w (25gm) Syringe) 0 ml IV PRN PRN PRN Reason: Hypoglycemia Hydralazine HCl (Apresoline) 10 mg IV Q4HR PRN PRN Reason: Hypertension Last Admin: 09/12/17 19:23 Dose: 10 mg Levofloxacin/Dextrose (Levaquin 500mg/100ml) 500 mg in 100 mls @ 66.667 mls/hr IV Q48HR MARGARET; Protocol Last Admin: 09/12/17 09:00 Dose: 66.667 mls/hr Aztreonam 1,000 mg/ Sodium (Chloride) 20 mls @ 2 mls/min IV Q8HR MARGARET Last Admin: 09/13/17 05:39 Dose: 2 mls/min Insulin Human Isoph/Insulin Regular (Humulin 70/30) 8 unit SUB-Q BIDDIAB MARGARET Last Admin: 09/13/17 07:28 Dose: 8 unit Insulin Human Regular (Humulin R) 0 units SUB-Q ACHS MARGARET; Protocol Last Admin: 09/13/17 07:29 Dose: 2 units Ondansetron HCl (Zofran) 4 mg IV Q3H PRN PRN Reason: Nausea Last Admin: 09/12/17 21:12 Dose: 4 mg Pantoprazole Sodium (Protonix) 40 mg IV QDAY [facility] Last Admin: 09/13/17 09:53 Dose: 40 mg Sodium Chloride (Sodium Chloride Flush Syringe 10 Ml) 10 ml IV BID MARGARET Last Admin: 09/13/17 08:59 Dose: 10 ml Sodium Chloride (Sodium Chloride Flush Syringe 10 Ml) 10 ml IV PRN PRN PRN Reason: LINE FLUSH Review of Systems - Review of Systems All systems: negative Gastrointestinal: nausea, vomiting Exam - Constitutional Vital Signs: Temp Pulse Resp BP Pulse Ox 97.9 F 84 16 124/62 98 09/13/17 06:56 09/13/17 06:56 09/13/17 06:56 09/13/17 06:56 09/13/17 06:56 General appearance: no acute distress - EENT Eyes: PERRL, EOM intact ENT: hearing intact - Respiratory Respiratory: bilateral: diminished - Cardiovascular Rhythm: regular Heart Sounds: Present: S1 & S2 - Gastrointestinal General gastrointestinal: Present: soft, non-tender, non-distended, normal bowel sounds - Neurologic Neurological: alert and oriented x3 - Labs CBC & Chem 7: 09/13/17 04:51 09/13/17 04:51 Lab Results: Laboratory Results - last 24 hr 09/10/17 09/12/17 09/12/17 19:04 13:53 16:58 WBC RBC Hgb Hct MCV MCH MCHC RDW Plt Count Add Manual Diff Total Counted Seg Neutrophils % Seg Neuts % (Manual) Band Neutrophils % Lymphocytes % (Manual) Reactive Lymphs % (Man) Monocytes % (Manual) Eosinophils % (Manual) Basophils % (Manual) Metamyelocytes % Myelocytes % Promyelocytes % Blast Cells % Nucleated RBC % Seg Neutrophils # Man Band Neutrophils # Lymphocytes # (Manual) Abs React Lymphs (Man) Monocytes # (Manual) Eosinophils # (Manual) Basophils # (Manual) Metamyelocytes # Myelocytes # Promyelocytes # Blast Cells # WBC Morphology Hypersegmented Neuts Hyposegmented Neuts Hypogranular Neuts Smudge Cells Toxic Granulation Toxic Vacuolation Dohle Bodies Pelger-Huet Anomaly Cecilia Rods Platelet Estimate Clumped Platelets Plt Clumps, EDTA Large Platelets Giant Platelets Platelet Satelliting Plt Morphology Comment RBC Morphology Dimorphic RBCs Polychromasia Hypochromasia Poikilocytosis Anisocytosis Microcytosis Macrocytosis Spherocytes Pappenheimer Bodies Sickle Cells Target Cells Tear Drop Cells Ovalocytes Helmet Cells Beavers-Coldiron Bodies [place] Rings Ashkan Cells Bite Cells Crenated Cell Elliptocytes Acanthocytes (Spur) Rouleaux Hemoglobin C Crystals Schistocytes Malaria parasites Jose A Bodies Hem Pathologist Commnt PT INR Sodium Potassium Chloride Carbon Dioxide Anion Gap BUN Creatinine Estimated GFR BUN/Creatinine Ratio Glucose POC Glucose 188 H 263 H Calcium Phosphorus Magnesium Blood Type A POSITIVE Antibody Screen Negative Crossmatch See Detail 09/12/17 09/13/17 09/13/17 22:28 04:51 04:51 WBC 21.9 H RBC 3.13 L Hgb 8.7 L Hct 26.2 L MCV 84 MCH 28 MCHC 33 RDW 16.6 H Plt Count 355 Add Manual Diff Complete Total Counted 100 Seg Neutrophils % Lead Applications Developer Seg Neuts % (Manual) 81.0 H Band Neutrophils % 16.0 Lymphocytes % (Manual) 3.0 L Reactive Lymphs % (Man) 0 Monocytes % (Manual) 0 Eosinophils % (Manual) 0 Basophils % (Manual) 0 Metamyelocytes % 0 Myelocytes % 0 Promyelocytes % 0 Blast Cells % 0 Nucleated RBC % Not Reportable Seg Neutrophils # Man 17.7 H Band Neutrophils # 3.5 Lymphocytes # (Manual) 0.7 L Abs React Lymphs (Man) 0.0 Monocytes # (Manual) 0.0 Eosinophils # (Manual) 0.0 Basophils # (Manual) 0.0 Metamyelocytes # 0.0 Myelocytes # 0.0 Promyelocytes # 0.0 Blast Cells # 0.0 WBC Morphology Not Reportable Hypersegmented Neuts Not Reportable Hyposegmented Neuts Not Reportable Hypogranular Neuts Not Reportable Smudge Cells Not Reportable Toxic Granulation Not Reportable Toxic Vacuolation Not Reportable Dohle Bodies Not Reportable Pelger-Huet Anomaly Not Reportable Cecilia Rods Not Reportable Platelet Estimate Appears normal Clumped Platelets Rare Plt Clumps, EDTA Not Reportable Large Platelets Few Giant Platelets Not Reportable Platelet Satelliting Not Reportable Plt Morphology Comment Not Reportable RBC Morphology Not Reportable Dimorphic RBCs Not Reportable Polychromasia Few Hypochromasia Not Reportable Poikilocytosis Not Reportable Anisocytosis 1+ Microcytosis Not Reportable Macrocytosis Not Reportable Spherocytes Not Reportable Pappenheimer Bodies Not Reportable Sickle Cells Not Reportable Target Cells Not Reportable Tear Drop Cells Not Reportable Ovalocytes Few Helmet Cells Not Reportable Beavers-Coldiron Bodies Not Reportable [place] Rings Not Reportable Ashkan Cells Few Bite Cells Not Reportable Crenated Cell Not Reportable Elliptocytes Rare Acanthocytes (Spur) Not Reportable Rouleaux Not Reportable Hemoglobin C Crystals Not Reportable Schistocytes Not Reportable Malaria parasites Not Reportable Jose A Bodies Not Reportable Hem Pathologist Commnt No PT INR Sodium 136 L Potassium 3.5 L Chloride 103.4 Carbon Dioxide 16 L Anion Gap 20 BUN 28 H Creatinine 1.2 Estimated GFR 44 BUN/Creatinine Ratio 23 Glucose 116 H POC Glucose 183 H Calcium 7.7 L Phosphorus 4.20 D Magnesium 1.80 Blood Type Antibody Screen Crossmatch 09/13/17 09/13/17 04:51 07:26 WBC RBC Hgb Hct MCV MCH MCHC RDW Plt Count Add Manual Diff Total Counted Seg Neutrophils % Seg Neuts % (Manual) Band Neutrophils % Lymphocytes % (Manual) Reactive Lymphs % (Man) Monocytes % (Manual) Eosinophils % (Manual) Basophils % (Manual) Metamyelocytes % Myelocytes % Promyelocytes % Blast Cells % Nucleated RBC % Seg Neutrophils # Man Band Neutrophils # Lymphocytes # (Manual) Abs React Lymphs (Man) Monocytes # (Manual) Eosinophils # (Manual) Basophils # (Manual) Metamyelocytes # Myelocytes # Promyelocytes # Blast Cells # WBC Morphology Hypersegmented Neuts Hyposegmented Neuts Hypogranular Neuts Smudge Cells Toxic Granulation Toxic Vacuolation Dohle Bodies Pelger-Huet Anomaly Cecilia Rods Platelet Estimate Clumped Platelets Plt Clumps, EDTA Large Platelets Giant Platelets Platelet Satelliting Plt Morphology Comment RBC Morphology Dimorphic RBCs Polychromasia Hypochromasia Poikilocytosis Anisocytosis Microcytosis Macrocytosis Spherocytes Pappenheimer Bodies Sickle Cells Target Cells Tear Drop Cells Ovalocytes Helmet Cells Beavers-Coldiron Bodies [place] Rings [place] Cells Bite Cells Crenated Cell Elliptocytes Acanthocytes (Spur) Rouleaux Hemoglobin C Crystals Schistocytes Malaria parasites Jose A Bodies Hem Pathologist Commnt PT 15.7 H INR 1.18 H Sodium Potassium Chloride Carbon Dioxide Anion Gap BUN Creatinine Estimated GFR BUN/Creatinine Ratio Glucose POC Glucose 168 H Calcium Phosphorus Magnesium Blood Type Antibody Screen Crossmatch Assessment and Plan 1.anemia -stool occult positive -HGB 8.7- s/p transfusion of 1 unit PRBCs -continue to monitor H/H and transfuse as needed -hold blood thinning medications -pt currently HD stable with no active signs of bleeding -etiology unclear -recommend an evaluation with an EGD/colonoscopy once pt is medically stable ( most likely on Saturday), unless overt bleeding develops -clear liquid diet -electrolyte management per primary team -continue PPI and supportive care -will follow 2.sepsis 3.DKA 4.acute kidney injury
--- NOTE | 2017-09-13 12:56 | Progress Note ---
Assessment and Plan Assessment: 1) Severe Sepsis: better, still fever and leukocytosis up 34-->16 -->19K. Etiology most likely UTI 2) UTI: urine cx grew>100K mixed bacterai. US renal no hydro or stones. 3) GNR septicemia: source ? UTI 4) ?Aspiration pneumonitis: repeat CXR neg 5) DM with DKA - better 6) NICKIE - resolved 7) Penicillin allergy, remote 8) Anemia: worsening Plan: -repeat blood cultures today -continue aztreonam D3 -stop levaquin -pharmacy for penicillin skin test - on Saturday -monitor leukocytosis ? worsening ? reactive from GI bleed I will be rounding on Saturday Thank you for your consultation, will follow up with you. Gudelia Segura MD Infectious Diseases Specialist [facility] M [phone] O [phone] Subjective Date of service: 09/13/17 Principal diagnosis: acute kidney injury Interval history: feels better, still fever 100.5 Microbiology: Blood cultures: 09/10 Kleb 4 of 4 bottles 09/11 Kleb 1 of 4 Urine cultures: 09/11 >100K mixed bacteria Current Antimicrobials: Aztreonam Levaquin Previous Antimicrobials: Vancomycin Objective - Exam Narrative Exam: General appearance: Alert in NAD, conversant Eyes: anicteric sclerae, moist conjunctivae; no lid-lag; PERRLA HENT: Atraumatic; oropharynx clear with moist mucous membranes and no mucosal ulcerations/no oral thrush; normal hard and soft palate. Normal external ears. Neck: Trachea midline; supple, no thyromegaly or lymphadenopathy Lungs: RRL crackles CV: RRR, no murmurs Abdomen: Soft, non-tender; no masses or hepatosplenomegaly Extremities: No peripheral edema or extremity lymphadenopathy Skin: Normal temperature, turgor and texture; no rash, ulcers or subcutaneous nodules Psych: Appropriate affect, alert and oriented to person, place and time. Neuro: alert and oriented x 3. Moving all extermities Lines: No CVL / PICC - Constitutional Vitals: Vital Signs Temp Pulse Resp BP Pulse Ox 97.9 F 117 H 16 124/62 98 09/13/17 06:56 09/13/17 10:00 09/13/17 06:56 09/13/17 06:56 09/13/17 12:44 Temperature -Last 24 Hours Temperature 97.9 F Temperature 100.5 F Temperature 99.3 F Temperature 99.4 F Temperature 99.5 F Temperature 100.5 F Temperature 100.5 F Temperature 100.5 F Temperature 100.5 F Temperature 99.3 F Temperature 98.5 F Temperature 98.3 F Temperature 98.3 F Temperature 97.9 F - Labs CBC & Chem 7: 09/13/17 04:51 09/13/17 04:51 Labs: Abnormal lab results 09/10/17 09/12/17 09/12/17 Range/Units 19:04 13:53 16:58 WBC (4.5-11.0) K/mm3 RBC (3.65-5.03) M/mm3 Hgb (10.1-14.3) gm/dl Hct (30.3-42.9) % RDW (13.2-15.2) % Seg Neuts % (Manual) (40.0-70.0) % Lymphocytes % (Manual) (13.4-35.0) % Seg Neutrophils # Man (1.8-7.7) K/mm3 Lymphocytes # (Manual) (1.2-5.4) K/mm3 PT (12.2-14.9) Sec. INR (0.87-1.13) Sodium (137-145) mmol/L Potassium (3.6-5.0) mmol/L Carbon Dioxide (22-30) mmol/L BUN (7-17) mg/dL Glucose (65-100) mg/dL POC Glucose 188 H 263 H (70-105) Calcium (8.4-10.2) mg/dL Crossmatch See Detail 09/12/17 09/13/17 09/13/17 Range/Units 22:28 04:51 04:51 WBC 21.9 H (4.5-11.0) K/mm3 RBC 3.13 L (3.65-5.03) M/mm3 Hgb 8.7 L (10.1-14.3) gm/dl Hct 26.2 L (30.3-42.9) % RDW 16.6 H (13.2-15.2) % Seg Neuts % (Manual) 81.0 H (40.0-70.0) % Lymphocytes % (Manual) 3.0 L (13.4-35.0) % Seg Neutrophils # Man 17.7 H (1.8-7.7) K/mm3 Lymphocytes # (Manual) 0.7 L (1.2-5.4) K/mm3 PT (12.2-14.9) Sec. INR (0.87-1.13) Sodium 136 L (137-145) mmol/L Potassium 3.5 L (3.6-5.0) mmol/L Carbon Dioxide 16 L (22-30) mmol/L BUN 28 H (7-17) mg/dL Glucose 116 H (65-100) mg/dL POC Glucose 183 H (70-105) Calcium 7.7 L (8.4-10.2) mg/dL Crossmatch 09/13/17 09/13/17 09/13/17 Range/Units 04:51 07:26 11:33 WBC (4.5-11.0) K/mm3 RBC (3.65-5.03) M/mm3 Hgb (10.1-14.3) gm/dl Hct (30.3-42.9) % RDW (13.2-15.2) % Seg Neuts % (Manual) (40.0-70.0) % Lymphocytes % (Manual) (13.4-35.0) % Seg Neutrophils # Man (1.8-7.7) K/mm3 Lymphocytes # (Manual) (1.2-5.4) K/mm3 PT 15.7 H (12.2-14.9) Sec. INR 1.18 H (0.87-1.13) Sodium (137-145) mmol/L Potassium (3.6-5.0) mmol/L Carbon Dioxide (22-30) mmol/L BUN (7-17) mg/dL Glucose (65-100) mg/dL POC Glucose 168 H 155 H (70-105) Calcium (8.4-10.2) mg/dL Crossmatch
--- NOTE | 2017-09-13 14:47 | Progress Note ---
Assessment and Plan Assessment and plan: --Significant drop in H&H/anemia Status post blood transfusion, heme-positive stool GI evaluation noted and appreciated, Possible EGD on Saturday --Hypo-phosphatemia; Hypomagnesemia; hypernatremia corrected --Sepsis secondary to Possible aspiration pneumonia; Continue aztreonam, stop Levaquin and Flagyl ID following Repeat chest x-ray 2 views did not show infiltrate --Gram-negative sepsis/the gram-negative bacteremia; Continue aztreonam --Sepsis secondary to urinary tract infection; present on admission --Diabetic ketoacidosis; resolved --Type 2 diabetes mellitus; continue Accu-Chek sliding scale coverage and ADA diet and insulin --Leukocytosis; secondary to sepsis due UTI, bronchitis ,pneumonitis --Elevated BNP more than 4000; LVEF 60% Probably diastolic dysfunction --Acute kidney injury; vasomotor nephropathy, resolved --DVT prophylaxis; SCDs, DC heparin in view of anemia and heme-positive stool Consults and recommendations noted and appreciated Plan of care discussed with the patient and her nurse History Interval history: Patient seen and examined medical records reviewed Feels slightly better no new complaints GI evaluation noted and appreciated Possible EGD in 1-2 days Patient comfortable vital signs reviewed Hospitalist Physical - Constitutional Vitals: Temp Pulse Resp BP Pulse Ox 97.9 F 117 H 16 124/62 98 09/13/17 06:56 09/13/17 14:00 09/13/17 14:00 09/13/17 06:56 09/13/17 14:00 General appearance: Present: no acute distress, well-nourished - EENT Eyes: Present: PERRL, EOM intact - Neck Neck: Present: supple, normal ROM - Respiratory Respiratory effort: normal Respiratory: negative: rales, rhonchi, wheezing - Cardiovascular Rhythm: regular Heart Sounds: Present: S1 & S2 - Extremities Extremities: no ischemia, No edema - Abdominal General gastrointestinal: soft, non-tender, non-distended, normal bowel sounds - Integumentary Integumentary: Present: clear, warm - Psychiatric Psychiatric: appropriate mood/affect, cooperative - Neurologic Neurologic: CNII-XII intact, moves all extremities Results - Labs CBC & Chem 7: 09/13/17 04:51 09/13/17 04:51 Labs: Laboratory Last Values WBC 21.9 K/mm3 (4.5-11.0) H 09/13/17 04:51 RBC 3.13 M/mm3 (3.65-5.03) L 09/13/17 04:51 Hgb 8.7 gm/dl (10.1-14.3) L 09/13/17 04:51 Hct 26.2 % (30.3-42.9) L 09/13/17 04:51 MCV 84 fl (79-97) 09/13/17 04:51 MCH 28 pg (28-32) 09/13/17 04:51 MCHC 33 % (30-34) 09/13/17 04:51 RDW 16.6 % (13.2-15.2) H 09/13/17 04:51 Plt Count 355 K/mm3 (140-440) 09/13/17 04:51 Lymph % (Auto) 7.6 % (13.4-35.0) L 09/12/17 05:14 [place] % (Auto) 4.2 % (0.0-7.3) 09/12/17 05:14 Eos % (Auto) 0.1 % (0.0-4.3) 09/12/17 05:14 Baso % (Auto) 0.5 % (0.0-1.8) 09/12/17 05:14 Lymph # 1.2 K/mm3 (1.2-5.4) 09/12/17 05:14 [place] # 0.7 K/mm3 (0.0-0.8) 09/12/17 05:14 Eos # 0.0 K/mm3 (0.0-0.4) 09/12/17 05:14 Baso # 0.1 K/mm3 (0.0-0.1) 09/12/17 05:14 Add Manual Diff Complete 09/13/17 04:51 Total Counted 100 09/13/17 04:51 Seg Neutrophils % Can Conveyor Feeder 09/13/17 04:51 Seg Neuts % (Manual) 81.0 % (40.0-70.0) H 09/13/17 04:51 Band Neutrophils % 16.0 % 09/13/17 04:51 Lymphocytes % (Manual) 3.0 % (13.4-35.0) L 09/13/17 04:51 Reactive Lymphs % (Man) 0 % 09/13/17 04:51 Monocytes % (Manual) 0 % (0.0-7.3) 09/13/17 04:51 Eosinophils % (Manual) 0 % (0.0-4.3) 09/13/17 04:51 Basophils % (Manual) 0 % (0.0-1.8) 09/13/17 04:51 Metamyelocytes % 0 % 09/13/17 04:51 Myelocytes % 0 % 09/13/17 04:51 Promyelocytes % 0 % 09/13/17 04:51 Blast Cells % 0 % 09/13/17 04:51 Nucleated RBC % Not Reportable 09/13/17 04:51 Seg Neutrophils # 14.2 K/mm3 (1.8-7.7) H 09/12/17 05:14 Seg Neutrophils # Man 17.7 K/mm3 (1.8-7.7) H 09/13/17 04:51 Band Neutrophils # 3.5 K/mm3 09/13/17 04:51 Lymphocytes # (Manual) 0.7 K/mm3 (1.2-5.4) L 09/13/17 04:51 Abs React Lymphs (Man) 0.0 K/mm3 09/13/17 04:51 Monocytes # (Manual) 0.0 K/mm3 (0.0-0.8) 09/13/17 04:51 Eosinophils # (Manual) 0.0 K/mm3 (0.0-0.4) 09/13/17 04:51 Basophils # (Manual) 0.0 K/mm3 (0.0-0.1) 09/13/17 04:51 Metamyelocytes # 0.0 K/mm3 09/13/17 04:51 Myelocytes # 0.0 K/mm3 09/13/17 04:51 Promyelocytes # 0.0 K/mm3 09/13/17 04:51 Blast Cells # 0.0 K/mm3 09/13/17 04:51 Pathologist Review 09/10/17 15:43 WBC Morphology Not Reportable 09/13/17 04:51 Hypersegmented Neuts Not Reportable 09/13/17 04:51 Hyposegmented Neuts Not Reportable 09/13/17 04:51 Hypogranular Neuts Not Reportable 09/13/17 04:51 Smudge Cells Not Reportable 09/13/17 04:51 Toxic Granulation Not Reportable 09/13/17 04:51 Toxic Vacuolation Not Reportable 09/13/17 04:51 Dohle Bodies Not Reportable 09/13/17 04:51 Pelger-Huet Anomaly Not Reportable 09/13/17 04:51 Cecilia Rods Not Reportable 09/13/17 04:51 Platelet Estimate Appears normal 09/13/17 04:51 Clumped Platelets Rare 09/13/17 04:51 Plt Clumps, EDTA Not Reportable 09/13/17 04:51 Large Platelets Few 09/13/17 04:51 Giant Platelets Not Reportable 09/13/17 04:51 Platelet Satelliting Not Reportable 09/13/17 04:51 Plt Morphology Comment Not Reportable 09/13/17 04:51 RBC Morphology Not Reportable 09/13/17 04:51 Dimorphic RBCs Not Reportable 09/13/17 04:51 Polychromasia Few 09/13/17 04:51 Hypochromasia Not Reportable 09/13/17 04:51 Poikilocytosis Not Reportable 09/13/17 04:51 Anisocytosis 1+ 09/13/17 04:51 Microcytosis Not Reportable 09/13/17 04:51 Macrocytosis Not Reportable 09/13/17 04:51 Spherocytes Not Reportable 09/13/17 04:51 Pappenheimer Bodies Not Reportable 09/13/17 04:51 Sickle Cells Not Reportable 09/13/17 04:51 Target Cells Not Reportable 09/13/17 04:51 Tear Drop Cells Not Reportable 09/13/17 04:51 Ovalocytes Few 09/13/17 04:51 Helmet Cells Not Reportable 09/13/17 04:51 [place] Bodies Not Reportable 09/13/17 04:51 [place] Rings Not Reportable 09/13/17 04:51 [place] Cells Few 09/13/17 04:51 Bite Cells Not Reportable 09/13/17 04:51 Crenated Cell Not Reportable 09/13/17 04:51 Elliptocytes Rare 09/13/17 04:51 Acanthocytes (Spur) Not Reportable 09/13/17 04:51 Rouleaux Not Reportable 09/13/17 04:51 Hemoglobin C Crystals Not Reportable 09/13/17 04:51 Schistocytes Not Reportable 09/13/17 04:51 Malaria parasites Not Reportable 09/13/17 04:51 Jose A Bodies Not Reportable 09/13/17 04:51 Hem Pathologist Commnt No 09/13/17 04:51 PT 15.7 Sec. (12.2-14.9) H 09/13/17 04:51 INR 1.18 (0.87-1.13) H 09/13/17 04:51 VBG pH 7.302 (7.320-7.420) L 09/10/17 17:50 Sodium 136 mmol/L (137-145) L 09/13/17 04:51 Potassium 3.5 mmol/L (3.6-5.0) L 09/13/17 04:51 Chloride 103.4 mmol/L (98-107) 09/13/17 04:51 Carbon Dioxide 16 mmol/L (22-30) L 09/13/17 04:51 Anion Gap 20 mmol/L 09/13/17 04:51 BUN 28 mg/dL (7-17) H 09/13/17 04:51 Creatinine 1.2 mg/dL (0.7-1.2) 09/13/17 04:51 Estimated GFR 44 ml/min 09/13/17 04:51 BUN/Creatinine Ratio 23 % 09/13/17 04:51 Glucose 116 mg/dL (65-100) H 09/13/17 04:51 POC Glucose 155 (70-105) H 09/13/17 11:33 Lactic Acid 1.40 mmol/L (0.7-2.0) 09/11/17 06:57 Calcium 7.7 mg/dL (8.4-10.2) L 09/13/17 04:51 Phosphorus 4.20 mg/dL (2.5-4.5) D 09/13/17 04:51 Magnesium 1.80 mg/dL (1.7-2.3) 09/13/17 04:51 Total Bilirubin 0.20 mg/dL (0.1-1.2) 09/12/17 05:14 AST 9 units/L (5-40) 09/12/17 05:14 ALT 7 units/L (7-56) 09/12/17 05:14 Alkaline Phosphatase 115 units/L (35-129) 09/12/17 05:14 NT-Pro-B Natriuret Pep 4650 pg/mL (0-900) H 09/10/17 17:50 Total Protein 5.2 g/dL (6.3-8.2) L 09/12/17 05:14 Albumin 2.6 g/dL (3.9-5) L 09/12/17 05:14 Albumin/Globulin Ratio 1.0 % 09/12/17 05:14 Urine Color Yellow (Yellow) 09/11/17 02:15 Urine Turbidity Clear (Clear) 09/11/17 02:15 Urine pH 6.0 (5.0-7.0) 09/11/17 02:15 Ur Specific [place] 1.008 (1.003-1.030) 09/11/17 02:15 Urine Protein 30 mg/dl mg/dL (Negative) 09/11/17 02:15 Urine Glucose (UA) 50 mg/dL (Negative) 09/11/17 02:15 Urine Ketones Neg mg/dL (Negative) 09/11/17 02:15 Urine Blood Lg (Negative) 09/11/17 02:15 Urine Nitrite Neg (Negative) 09/11/17 02:15 Urine Bilirubin Neg (Negative) 09/11/17 02:15 Urine Urobilinogen < 2.0 mg/dL (<2.0) 09/11/17 02:15 Ur Leukocyte Esterase Lg (Negative) 09/11/17 02:15 Urine WBC (Auto) > 182.0 /HPF (0.0-6.0) H 09/11/17 02:15 Urine RBC (Auto) 25.0 /HPF (0.0-6.0) 09/11/17 02:15 U Epithel Cells (Auto) 6.0 /HPF (0-13.0) 09/11/17 02:15 Urine Bacteria (Auto) 4+ /HPF (Negative) 09/11/17 02:15 Urine WBC Clumps 3+ /HPF 09/11/17 02:15 Urine Creatinine 54.2 mg/dL (0.1-20.0) H 09/11/17 10:13 Urine Microalbumin 8.7 mg/dL (0.1-34.0) 09/11/17 02:15 Microalb/Creat Ratio 300.0 ug/mg 09/11/17 02:15 Urine Sodium 73 mmol/L 09/11/17 02:15 Urine Total Protein 49 mg/dL (5-11.8) H 09/11/17 10:13 Blood Type A POSITIVE 09/10/17 19:04 Antibody Screen Negative 09/10/17 19:04 Crossmatch See Detail 09/10/17 19:04
--- NOTE | 2017-09-13 18:06 | Progress Note ---
Assessment and Plan - Patient Problems (1) Acute kidney injury Current Visit: Yes Status: Acute Plan to address problem: Prerenal azotemia versus acute tubular necrosis secondary to hypotension and sepsis. I suspect baseline chronic kidney disease secondary to diabetic nephropathy with proteinuria on urinalysis. Exact stage unknown. Kidney function has improved with volume repletion and antibiotics. Follow-up electrolytes and renal function. (2) Hyponatremia Current Visit: Yes Status: Acute Plan to address problem: Hypovolemic hyponatremia with factitious hyponatremia secondary to hyperglycemia. Sodium improved with volume status resuscitation and control of hyperglycemia. (3) DKA (diabetic ketoacidosis) Current Visit: Yes Status: Acute Qualifiers: Diabetes mellitus type: type 2 Diabetes mellitus complication detail: without coma Qualified Code(s): E11.10 - Type 2 diabetes mellitus with ketoacidosis without coma Plan to address problem: Continue insulin. Blood sugar management by primary attending/loom repairer (4) Hypokalemia Current Visit: Yes Status: Acute Plan to address problem: Patient hyperkalemic on presentation due to transcellular shift with acidosis. Potassium is now low normal with correction of diabetic ketoacidosis. Supplement potassium and follow-up level (5) Sepsis due to Gram negative bacteria Current Visit: Yes Status: Acute Plan to address problem: Klebsiella bacteremia Source possibly urinary tract infection. Follow-up urine culture. Continue antibiotics (6) Anemia Current Visit: Yes Status: Acute Plan to address problem: Follow-up hemoglobin (7) Acidosis Current Visit: Yes Status: Acute Plan to address problem: Improving with improved blood sugar control. Continue to follow (8) Hypomagnesemia Current Visit: Yes Status: Acute Plan to address problem: Magnesium is replete (9) Hypophosphatemia Current Visit: Yes Status: Acute Plan to address problem: Phosphorus is replete Subjective Date of service: 09/13/17 Principal diagnosis: acute kidney injury Interval history: Patient seen lying in bed. She feels a bit better. No nausea or vomiting. Tolerating clear liquids today. No diarrhea today she states. Objective - Exam Narrative Exam: Elderly female lying in bed in no acute distress HEENT: NCAT, pink oral mucous membrane Neck: Supple, no venous distention CVS: S1S2 RRR with no murmur, rub or gallop Chest: Clear to auscultation Abdomen: Protuberant, soft, nontender, no organomegaly, bowel sounds are present Extremities: No edema, no clubbing Skin: Warm and dry, no rash Neuro: Awake, alert no focal deficits - Vital Signs Vital signs: Vital Signs - 12hr 09/13/17 09/13/17 09/13/17 06:56 08:29 10:00 Temperature 97.9 F 97.5 F L Pulse Rate 84 119 H 117 H Pulse Rate [ From Monitor] Respiratory 16 19 Rate Blood Pressure 181/80 Blood Pressure 124/62 [Left] O2 Sat by Pulse 98 93 Oximetry 09/13/17 09/13/17 09/13/17 12:42 12:44 14:00 Temperature Pulse Rate Pulse Rate [ 117 H From Monitor] Respiratory 16 Rate Blood Pressure Blood Pressure [Left] O2 Sat by Pulse 98 98 98 Oximetry 09/13/17 14:01 Temperature Pulse Rate 103 H Pulse Rate [ From Monitor] Respiratory Rate Blood Pressure Blood Pressure [Left] O2 Sat by Pulse 96 Oximetry - Lab 09/13/17 04:51 09/13/17 04:51 Most recent lab results Calcium 7.7 mg/dL (8.4-10.2) L 09/13/17 04:51 Phosphorus 4.20 mg/dL (2.5-4.5) D 09/13/17 04:51 Magnesium 1.80 mg/dL (1.7-2.3) 09/13/17 04:51 Urine Creatinine 54.2 mg/dL (0.1-20.0) H 09/11/17 10:13 Urine Sodium 73 mmol/L 09/11/17 02:15 Urine Total Protein 49 mg/dL (5-11.8) H 09/11/17 10:13
[2017-09-14] MEDS: AZACTAM 1,000 MG in NACL 0.9% 20 ML IV SCH ×4 (00:27→22:59)
[2017-09-14] MEDS: SODIUM CHLORIDE FLUSH SYRINGE 10 ML IV SCH ×3 (00:28→23:00)
[2017-09-14] MEDS: HumuLIN R SUB-Q SCH ×5 (00:28→22:59)
[2017-09-14 05:41] LABS: Basophils # (Auto) 0.1 K/mm3 (0.0-0.1); Basophils % (Auto) 0.5 % (0.0-1.8); Eosinophils # (Auto) 0.1 K/mm3 (0.0-0.4); Eosinophils % (Auto) 1.1 % (0.0-4.3); Hematocrit 25.1 % (30.3-42.9); Hemoglobin 8.5 gm/dl (10.1-14.3); Lymphocytes # (Auto) 1.2 K/mm3 (1.2-5.4); Lymphocytes % (Auto) 9.8 % (13.4-35.0); Mean Corpuscular HGB Conc 34 % (30-34); Mean Corpuscular Hemoglobin 29 pg (28-32); Mean Corpuscular Volume 85 fl (79-97); Monocytes # (Auto) 0.7 K/mm3 (0.0-0.8); Monocytes % (Auto) 5.7 % (0.0-7.3); Platelet Count 323 K/mm3 (140-440); Red Blood Count 2.93 M/mm3 (3.65-5.03)
[2017-09-14 06:36] LABS: Calcium 7.4 mg/dL (8.4-10.2)
[2017-09-14] MEDS ORDERED: K-DUR PO ONE (08:10)
--- NOTE | 2017-09-14 08:16 | Progress Note ---
Assessment and Plan Assessment and plan: --Hypokalemia; replenished per protocol monitor levels --Mild hyponatremia; closely monitor sodium levels replacement therapy as needed --anemia with heme positive stool Status post blood transfusion, hemoglobin today is 8.5 --Possible GI bleeding/heme-positive stool, avoid NSAIDs, anticoagulants GI planning EGD on Saturday --Gram-negative sepsis/the gram-negative bacteremia; Klebsiella Continue aztreonam, contact isolation, ID following --Sepsis secondary to urinary tract infection; present on admission --Diabetic ketoacidosis; resolved --Type 2 diabetes mellitus; moderate control continue Accu-Chek sliding scale coverage and ADA diet and increase 7030 insulin to 10 units twice a day --Leukocytosis; secondary to sepsis due UTI, trending down --Elevated BNP more than 4000; LVEF 60% Probably diastolic dysfunction --Acute kidney injury; vasomotor nephropathy, resolved --DVT prophylaxis; SCDs, DC heparin in view of anemia and heme-positive stool Plan of care discussed with the patient and her nurse Consults and recommendations noted and appreciated History Interval history: Sincerely and examined this morning medical records reviewed Patient feels better no new episodes of bleeding Alert awake oriented 3 Vital signs reviewed GI Planning endoscopy on Saturday Hospitalist Physical - Constitutional Vitals: Temp Pulse Resp BP Pulse Ox 98.6 F 91 H 18 113/58 97 09/14/17 02:35 09/14/17 02:35 09/14/17 02:35 09/14/17 02:35 09/14/17 02:35 General appearance: Present: no acute distress, well-nourished - EENT Eyes: Present: PERRL, EOM intact - Neck Neck: Present: supple, normal ROM - Respiratory Respiratory effort: normal Respiratory: bilateral: diminished, negative: rales, rhonchi, wheezing - Cardiovascular Rhythm: regular Heart Sounds: Present: S1 & S2 - Extremities Extremities: no ischemia, No edema - Abdominal General gastrointestinal: soft, non-tender, non-distended, normal bowel sounds - Integumentary Integumentary: Present: clear, warm - Psychiatric Psychiatric: appropriate mood/affect, cooperative - Neurologic Neurologic: CNII-XII intact, moves all extremities Results - Labs CBC & Chem 7: 09/14/17 05:20 09/14/17 05:20 Labs: Laboratory Last Values WBC 12.1 K/mm3 (4.5-11.0) H 09/14/17 05:20 RBC 2.93 M/mm3 (3.65-5.03) L 09/14/17 05:20 Hgb 8.5 gm/dl (10.1-14.3) L 09/14/17 05:20 Hct 25.1 % (30.3-42.9) L 09/14/17 05:20 MCV 85 fl (79-97) 09/14/17 05:20 MCH 29 pg (28-32) 09/14/17 05:20 MCHC 34 % (30-34) 09/14/17 05:20 RDW 17.0 % (13.2-15.2) H 09/14/17 05:20 Plt Count 323 K/mm3 (140-440) 09/14/17 05:20 Lymph % (Auto) 9.8 % (13.4-35.0) L 09/14/17 05:20 [place] % (Auto) 5.7 % (0.0-7.3) 09/14/17 05:20 Eos % (Auto) 1.1 % (0.0-4.3) 09/14/17 05:20 Baso % (Auto) 0.5 % (0.0-1.8) 09/14/17 05:20 Lymph # 1.2 K/mm3 (1.2-5.4) 09/14/17 05:20 [place] # 0.7 K/mm3 (0.0-0.8) 09/14/17 05:20 Eos # 0.1 K/mm3 (0.0-0.4) 09/14/17 05:20 Baso # 0.1 K/mm3 (0.0-0.1) 09/14/17 05:20 Add Manual Diff Complete 09/13/17 04:51 Total Counted 100 09/13/17 04:51 Seg Neutrophils % 82.9 % (40.0-70.0) H 09/14/17 05:20 Seg Neuts % (Manual) 81.0 % (40.0-70.0) H 09/13/17 04:51 Band Neutrophils % 16.0 % 09/13/17 04:51 Lymphocytes % (Manual) 3.0 % (13.4-35.0) L 09/13/17 04:51 Reactive Lymphs % (Man) 0 % 09/13/17 04:51 Monocytes % (Manual) 0 % (0.0-7.3) 09/13/17 04:51 Eosinophils % (Manual) 0 % (0.0-4.3) 09/13/17 04:51 Basophils % (Manual) 0 % (0.0-1.8) 09/13/17 04:51 Metamyelocytes % 0 % 09/13/17 04:51 Myelocytes % 0 % 09/13/17 04:51 Promyelocytes % 0 % 09/13/17 04:51 Blast Cells % 0 % 09/13/17 04:51 Nucleated RBC % Not Reportable 09/13/17 04:51 Seg Neutrophils # 10.0 K/mm3 (1.8-7.7) H 09/14/17 05:20 Seg Neutrophils # Man 17.7 K/mm3 (1.8-7.7) H 09/13/17 04:51 Band Neutrophils # 3.5 K/mm3 09/13/17 04:51 Lymphocytes # (Manual) 0.7 K/mm3 (1.2-5.4) L 09/13/17 04:51 Abs React Lymphs (Man) 0.0 K/mm3 09/13/17 04:51 Monocytes # (Manual) 0.0 K/mm3 (0.0-0.8) 09/13/17 04:51 Eosinophils # (Manual) 0.0 K/mm3 (0.0-0.4) 09/13/17 04:51 Basophils # (Manual) 0.0 K/mm3 (0.0-0.1) 09/13/17 04:51 Metamyelocytes # 0.0 K/mm3 09/13/17 04:51 Myelocytes # 0.0 K/mm3 09/13/17 04:51 Promyelocytes # 0.0 K/mm3 09/13/17 04:51 Blast Cells # 0.0 K/mm3 09/13/17 04:51 Pathologist Review 09/10/17 15:43 WBC Morphology Not Reportable 09/13/17 04:51 Hypersegmented Neuts Not Reportable 09/13/17 04:51 Hyposegmented Neuts Not Reportable 09/13/17 04:51 Hypogranular Neuts Not Reportable 09/13/17 04:51 Smudge Cells Not Reportable 09/13/17 04:51 Toxic Granulation Not Reportable 09/13/17 04:51 Toxic Vacuolation Not Reportable 09/13/17 04:51 Dohle Bodies Not Reportable 09/13/17 04:51 Pelger-Huet Anomaly Not Reportable 09/13/17 04:51 Cecilia Rods Not Reportable 09/13/17 04:51 Platelet Estimate Appears normal 09/13/17 04:51 Clumped Platelets Rare 09/13/17 04:51 Plt Clumps, EDTA Not Reportable 09/13/17 04:51 Large Platelets Few 09/13/17 04:51 Giant Platelets Not Reportable 09/13/17 04:51 Platelet Satelliting Not Reportable 09/13/17 04:51 Plt Morphology Comment Not Reportable 09/13/17 04:51 RBC Morphology Not Reportable 09/13/17 04:51 Dimorphic RBCs Not Reportable 09/13/17 04:51 Polychromasia Few 09/13/17 04:51 Hypochromasia Not Reportable 09/13/17 04:51 Poikilocytosis Not Reportable 09/13/17 04:51 Anisocytosis 1+ 09/13/17 04:51 Microcytosis Not Reportable 09/13/17 04:51 Macrocytosis Not Reportable 09/13/17 04:51 Spherocytes Not Reportable 09/13/17 04:51 Pappenheimer Bodies Not Reportable 09/13/17 04:51 Sickle Cells Not Reportable 09/13/17 04:51 Target Cells Not Reportable 09/13/17 04:51 Tear Drop Cells Not Reportable 09/13/17 04:51 Ovalocytes Few 09/13/17 04:51 Helmet Cells Not Reportable 09/13/17 04:51 [place] Bodies Not Reportable 09/13/17 04:51 [place] Rings Not Reportable 09/13/17 04:51 [place] Cells Few 09/13/17 04:51 Bite Cells Not Reportable 09/13/17 04:51 Crenated Cell Not Reportable 09/13/17 04:51 Elliptocytes Rare 09/13/17 04:51 Acanthocytes (Spur) Not Reportable 09/13/17 04:51 Rouleaux Not Reportable 09/13/17 04:51 Hemoglobin C Crystals Not Reportable 09/13/17 04:51 Schistocytes Not Reportable 09/13/17 04:51 Malaria parasites Not Reportable 09/13/17 04:51 Jose A Bodies Not Reportable 09/13/17 04:51 Hem Pathologist Commnt No 09/13/17 04:51 PT 15.7 Sec. (12.2-14.9) H 09/13/17 04:51 INR 1.18 (0.87-1.13) H 09/13/17 04:51 VBG pH 7.302 (7.320-7.420) L 09/10/17 17:50 Sodium 131 mmol/L (137-145) L 09/14/17 05:20 Potassium 3.4 mmol/L (3.6-5.0) L 09/14/17 05:20 Chloride 99.2 mmol/L (98-107) 09/14/17 05:20 Carbon Dioxide 17 mmol/L (22-30) L 09/14/17 05:20 Anion Gap 18 mmol/L 09/14/17 05:20 BUN 18 mg/dL (7-17) H 09/14/17 05:20 Creatinine 1.0 mg/dL (0.7-1.2) 09/14/17 05:20 Estimated GFR 55 ml/min 09/14/17 05:20 BUN/Creatinine Ratio 18 % 09/14/17 05:20 Glucose 136 mg/dL (65-100) H 09/14/17 05:20 POC Glucose 186 (70-105) H 09/14/17 07:28 Lactic Acid 1.40 mmol/L (0.7-2.0) 09/11/17 06:57 Calcium 7.4 mg/dL (8.4-10.2) L 09/14/17 05:20 Phosphorus 4.20 mg/dL (2.5-4.5) D 09/13/17 04:51 Magnesium 1.80 mg/dL (1.7-2.3) 09/13/17 04:51 Total Bilirubin 0.20 mg/dL (0.1-1.2) 09/12/17 05:14 AST 9 units/L (5-40) 09/12/17 05:14 ALT 7 units/L (7-56) 09/12/17 05:14 Alkaline Phosphatase 115 units/L (35-129) 09/12/17 05:14 NT-Pro-B Natriuret Pep 4650 pg/mL (0-900) H 09/10/17 17:50 Total Protein 5.2 g/dL (6.3-8.2) L 09/12/17 05:14 Albumin 2.6 g/dL (3.9-5) L 09/12/17 05:14 Albumin/Globulin Ratio 1.0 % 09/12/17 05:14 Urine Color Yellow (Yellow) 09/11/17 02:15 Urine Turbidity Clear (Clear) 09/11/17 02:15 Urine pH 6.0 (5.0-7.0) 09/11/17 02:15 Ur Specific [place] 1.008 (1.003-1.030) 09/11/17 02:15 Urine Protein 30 mg/dl mg/dL (Negative) 09/11/17 02:15 Urine Glucose (UA) 50 mg/dL (Negative) 09/11/17 02:15 Urine Ketones Neg mg/dL (Negative) 09/11/17 02:15 Urine Blood Lg (Negative) 09/11/17 02:15 Urine Nitrite Neg (Negative) 09/11/17 02:15 Urine Bilirubin Neg (Negative) 09/11/17 02:15 Urine Urobilinogen < 2.0 mg/dL (<2.0) 09/11/17 02:15 Ur Leukocyte Esterase Lg (Negative) 09/11/17 02:15 Urine WBC (Auto) > 182.0 /HPF (0.0-6.0) H 09/11/17 02:15 Urine RBC (Auto) 25.0 /HPF (0.0-6.0) 09/11/17 02:15 U Epithel Cells (Auto) 6.0 /HPF (0-13.0) 09/11/17 02:15 Urine Bacteria (Auto) 4+ /HPF (Negative) 09/11/17 02:15 Urine WBC Clumps 3+ /HPF 09/11/17 02:15 Urine Creatinine 54.2 mg/dL (0.1-20.0) H 09/11/17 10:13 Urine Microalbumin 8.7 mg/dL (0.1-34.0) 09/11/17 02:15 Microalb/Creat Ratio 300.0 ug/mg 09/11/17 02:15 Urine Sodium 73 mmol/L 09/11/17 02:15 Urine Total Protein 49 mg/dL (5-11.8) H 09/11/17 10:13 Blood Type A POSITIVE 09/10/17 19:04 Antibody Screen Negative 09/10/17 19:04 Crossmatch See Detail 09/10/17 19:04
[2017-09-14] MEDS: PROTONIX IV SCH (09:34)
[2017-09-14] MEDS: ZOFRAN IV PRN (09:38)
--- NOTE | 2017-09-14 11:00 | Gastroenterology Progress Note ---
Assessment and Plan GI: no specific GI complaints - continue current meds and diet - if stable plans EGD/colonoscopy on Saturday - will follow Subjective Date of service: 09/14/17 Principal diagnosis: acute kidney injury Interval history: -no GI complaints overnight Objective - Constitutional Vitals: Temp Pulse Resp BP Pulse Ox 99.5 F 91 H 20 120/54 97 09/14/17 07:20 09/14/17 02:35 09/14/17 07:20 09/14/17 07:20 09/14/17 02:35 General appearance: no acute distress - EENT Eyes: PERRL - Respiratory Respiratory: bilateral: CTA - Gastrointestinal General gastrointestinal: Present: soft, non-tender, non-distended - Labs CBC & Chem 7: 09/14/17 05:20 09/14/17 05:20 Labs: Laboratory Results - last 24 hr 09/13/17 09/13/17 09/13/17 11:33 16:28 22:30 WBC RBC Hgb Hct MCV MCH MCHC RDW Plt Count Lymph % (Auto) [place] % (Auto) Eos % (Auto) Baso % (Auto) Lymph # [place] # Eos # Baso # Seg Neutrophils % Seg Neutrophils # Sodium Potassium Chloride Carbon Dioxide Anion Gap BUN Creatinine Estimated GFR BUN/Creatinine Ratio Glucose POC Glucose 155 H 252 H 158 H Calcium 09/14/17 09/14/17 09/14/17 05:20 05:20 07:28 WBC 12.1 H RBC 2.93 L Hgb 8.5 L Hct 25.1 L MCV 85 MCH 29 MCHC 34 RDW 17.0 H Plt Count 323 Lymph % (Auto) 9.8 L Wilkin % (Auto) 5.7 Eos % (Auto) 1.1 Baso % (Auto) 0.5 Lymph # 1.2 Wilkin # 0.7 Eos # 0.1 Baso # 0.1 Seg Neutrophils % 82.9 H Seg Neutrophils # 10.0 H Sodium 131 L Potassium 3.4 L Chloride 99.2 Carbon Dioxide 17 L Anion Gap 18 BUN 18 H Creatinine 1.0 Estimated GFR 55 BUN/Creatinine Ratio 18 Glucose 136 H POC Glucose 186 H Calcium 7.4 L
--- NOTE | 2017-09-14 11:19 | Progress Note ---
Assessment and Plan - Patient Problems (1) Acute kidney injury Current Visit: Yes Status: Acute Plan to address problem: Prerenal azotemia versus acute tubular necrosis secondary to hypotension and sepsis. Kidney function has improved with volume repletion and antibiotics. Follow-up electrolytes and renal function. We'll sign off. Reconsult when necessary (2) Hyponatremia Current Visit: Yes Status: Acute Plan to address problem: Hypovolemic hyponatremia with factitious hyponatremia secondary to hyperglycemia. Sodium improved with volume status resuscitation and control of hyperglycemia. (3) DKA (diabetic ketoacidosis) Current Visit: Yes Status: Acute Qualifiers: Diabetes mellitus type: type 2 Diabetes mellitus complication detail: without coma Qualified Code(s): E11.10 - Type 2 diabetes mellitus with ketoacidosis without coma Plan to address problem: Continue insulin. 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 Potassium is now low normal with correction of diabetic ketoacidosis. Supplement potassium and follow-up level (5) Sepsis due to Gram negative bacteria Current Visit: Yes Status: Acute (6) Anemia Current Visit: Yes Status: Acute Plan to address problem: Follow-up hemoglobin (7) Acidosis Current Visit: Yes Status: Acute Plan to address problem: Improving with improved blood sugar control. Subjective Date of service: 09/14/17 Principal diagnosis: acute kidney injury Interval history: Patient seen lying in bed. Complains of heartburns since early this morning. Was unable to sleep. No nausea or vomiting. Objective - Exam Narrative Exam: Elderly female lying in bed in no acute distress HEENT: NCAT, pink oral mucous membrane Neck: Supple, no venous distention CVS: S1S2 RRR with no murmur, rub or gallop Chest: Clear to auscultation Abdomen: Protuberant, soft, nontender, no organomegaly, bowel sounds are present Extremities: No edema, no clubbing Skin: Warm and dry, no rash Neuro: Awake, alert no focal deficits - Vital Signs Vital signs: Vital Signs - 12hr 09/14/17 09/14/17 02:35 07:20 Temperature 98.6 F 99.5 F Pulse Rate 91 H Respiratory 18 20 Rate Blood Pressure 113/58 120/54 O2 Sat by Pulse 97 Oximetry - Lab 09/14/17 05:20 09/14/17 05:20 Most recent lab results Calcium 7.4 mg/dL (8.4-10.2) L 09/14/17 05:20 Phosphorus 4.20 mg/dL (2.5-4.5) D 09/13/17 04:51 Magnesium 1.80 mg/dL (1.7-2.3) 09/13/17 04:51 Urine Creatinine 54.2 mg/dL (0.1-20.0) H 09/11/17 10:13 Urine Sodium 73 mmol/L 09/11/17 02:15 Urine Total Protein 49 mg/dL (5-11.8) H 09/11/17 10:13
[2017-09-15 06:08] LABS: Basophils % (Auto) 0.4 % (0.0-1.8); Eosinophils # (Auto) 0.1 K/mm3 (0.0-0.4); Hematocrit 25.6 % (30.3-42.9); Lymphocytes # (Auto) 1.1 K/mm3 (1.2-5.4); Lymphocytes % (Auto) 10.4 % (13.4-35.0); Mean Corpuscular HGB Conc 35 % (30-34); Mean Corpuscular Hemoglobin 29 pg (28-32); Mean Corpuscular Volume 83 fl (79-97); Monocytes # (Auto) 0.6 K/mm3 (0.0-0.8); Monocytes % (Auto) 5.5 % (0.0-7.3); Platelet Count 322 K/mm3 (140-440); Red Cell Distribution Width 16.3 % (13.2-15.2)
[2017-09-15 06:12] LABS: Calcium 7.6 mg/dL (8.4-10.2)
[2017-09-15] MEDS: AZACTAM 1,000 MG in NACL 0.9% 20 ML IV SCH ×3 (06:28→21:39)
[2017-09-15] MEDS: HumuLIN R SUB-Q SCH ×4 (08:16→23:44)
--- NOTE | 2017-09-15 08:44 | Progress Note ---
Assessment and Plan Assessment and plan: --GI bleeding/heme-positive stool, anemia avoid NSAIDs, anticoagulants GI planning EGD/colonoscopy tomorrow --Mild hyponatremia; improving --anemia with heme positive stool Status post blood transfusion, hemoglobin today is 8.5- 9.0 --Gram-negative sepsis/the gram-negative bacteremia; Klebsiella Continue aztreonam, contact isolation, ID following --Sepsis secondary to urinary tract infection; present on admission --Diabetic ketoacidosis; resolved --Type 2 diabetes mellitus; moderate control continue Accu-Chek sliding scale coverage and ADA diet and increase 7030 insulin to 10 units twice a day ,A1c 10 --Leukocytosis; secondary to sepsis due UTI, trending down --Elevated BNP more than 4000; LVEF 60% Probably diastolic dysfunction --Acute kidney injury; vasomotor nephropathy, resolved --DVT prophylaxis; SCDs, DC heparin in view of anemia and heme-positive stool Plan of care discussed with the patient and her nurse Consults and recommendations noted and appreciated History Interval history: Patient seen and examined medical records reviewed No new events reported by the nursing staff Patient complains of generalized weakness Possible EGD/colonoscopy tomorrow Vital signs are stable Hospitalist Physical - Constitutional Vitals: Temp Pulse Resp BP Pulse Ox 99.2 F 98 H 18 116/48 97 09/15/17 07:25 09/15/17 07:31 09/15/17 07:31 09/15/17 07:31 09/15/17 07:31 General appearance: Present: no acute distress, well-nourished - EENT Eyes: Present: PERRL, EOM intact - Neck Neck: Present: supple, normal ROM - Respiratory Respiratory effort: normal Respiratory: bilateral: diminished, negative: rales, rhonchi, wheezing - Cardiovascular Rhythm: regular Heart Sounds: Present: S1 & S2 - Extremities Extremities: no ischemia, No edema Peripheral Pulses: within normal limits - Abdominal General gastrointestinal: soft, non-tender, non-distended, normal bowel sounds - Integumentary Integumentary: Present: clear, warm - Psychiatric Psychiatric: appropriate mood/affect, cooperative - Neurologic Neurologic: CNII-XII intact, moves all extremities Results - Labs CBC & Chem 7: 09/15/17 05:33 09/15/17 05:33 Labs: Laboratory Last Values WBC 10.7 K/mm3 (4.5-11.0) 09/15/17 05:33 RBC 3.10 M/mm3 (3.65-5.03) L 09/15/17 05:33 Hgb 9.0 gm/dl (10.1-14.3) L 09/15/17 05:33 Hct 25.6 % (30.3-42.9) L 09/15/17 05:33 MCV 83 fl (79-97) 09/15/17 05:33 MCH 29 pg (28-32) 09/15/17 05:33 MCHC 35 % (30-34) H 09/15/17 05:33 RDW 16.3 % (13.2-15.2) H 09/15/17 05:33 Plt Count 322 K/mm3 (140-440) 09/15/17 05:33 Lymph % (Auto) 10.4 % (13.4-35.0) L 09/15/17 05:33 [place] % (Auto) 5.5 % (0.0-7.3) 09/15/17 05:33 Eos % (Auto) 1.0 % (0.0-4.3) 09/15/17 05:33 Baso % (Auto) 0.4 % (0.0-1.8) 09/15/17 05:33 Lymph # 1.1 K/mm3 (1.2-5.4) L 09/15/17 05:33 [place] # 0.6 K/mm3 (0.0-0.8) 09/15/17 05:33 Eos # 0.1 K/mm3 (0.0-0.4) 09/15/17 05:33 Baso # 0.0 K/mm3 (0.0-0.1) 09/15/17 05:33 Add Manual Diff Complete 09/13/17 04:51 Total Counted 100 09/13/17 04:51 Seg Neutrophils % 82.7 % (40.0-70.0) H 09/15/17 05:33 Seg Neuts % (Manual) 81.0 % (40.0-70.0) H 09/13/17 04:51 Band Neutrophils % 16.0 % 09/13/17 04:51 Lymphocytes % (Manual) 3.0 % (13.4-35.0) L 09/13/17 04:51 Reactive Lymphs % (Man) 0 % 09/13/17 04:51 Monocytes % (Manual) 0 % (0.0-7.3) 09/13/17 04:51 Eosinophils % (Manual) 0 % (0.0-4.3) 09/13/17 04:51 Basophils % (Manual) 0 % (0.0-1.8) 09/13/17 04:51 Metamyelocytes % 0 % 09/13/17 04:51 Myelocytes % 0 % 09/13/17 04:51 Promyelocytes % 0 % 09/13/17 04:51 Blast Cells % 0 % 09/13/17 04:51 Nucleated RBC % Not Reportable 09/13/17 04:51 Seg Neutrophils # 8.8 K/mm3 (1.8-7.7) H 09/15/17 05:33 Seg Neutrophils # Man 17.7 K/mm3 (1.8-7.7) H 09/13/17 04:51 Band Neutrophils # 3.5 K/mm3 09/13/17 04:51 Lymphocytes # (Manual) 0.7 K/mm3 (1.2-5.4) L 09/13/17 04:51 Abs React Lymphs (Man) 0.0 K/mm3 09/13/17 04:51 Monocytes # (Manual) 0.0 K/mm3 (0.0-0.8) 09/13/17 04:51 Eosinophils # (Manual) 0.0 K/mm3 (0.0-0.4) 09/13/17 04:51 Basophils # (Manual) 0.0 K/mm3 (0.0-0.1) 09/13/17 04:51 Metamyelocytes # 0.0 K/mm3 09/13/17 04:51 Myelocytes # 0.0 K/mm3 09/13/17 04:51 Promyelocytes # 0.0 K/mm3 09/13/17 04:51 Blast Cells # 0.0 K/mm3 09/13/17 04:51 Pathologist Review 09/10/17 15:43 WBC Morphology Not Reportable 09/13/17 04:51 Hypersegmented Neuts Not Reportable 09/13/17 04:51 Hyposegmented Neuts Not Reportable 09/13/17 04:51 Hypogranular Neuts Not Reportable 09/13/17 04:51 Smudge Cells Not Reportable 09/13/17 04:51 Toxic Granulation Not Reportable 09/13/17 04:51 Toxic Vacuolation Not Reportable 09/13/17 04:51 Dohle Bodies Not Reportable 09/13/17 04:51 Pelger-Huet Anomaly Not Reportable 09/13/17 04:51 Cecilia Rods Not Reportable 09/13/17 04:51 Platelet Estimate Appears normal 09/13/17 04:51 Clumped Platelets Rare 09/13/17 04:51 Plt Clumps, EDTA Not Reportable 09/13/17 04:51 Large Platelets Few 09/13/17 04:51 Giant Platelets Not Reportable 09/13/17 04:51 Platelet Satelliting Not Reportable 09/13/17 04:51 Plt Morphology Comment Not Reportable 09/13/17 04:51 RBC Morphology Not Reportable 09/13/17 04:51 Dimorphic RBCs Not Reportable 09/13/17 04:51 Polychromasia Few 09/13/17 04:51 Hypochromasia Not Reportable 09/13/17 04:51 Poikilocytosis Not Reportable 09/13/17 04:51 Anisocytosis 1+ 09/13/17 04:51 Microcytosis Not Reportable 09/13/17 04:51 Macrocytosis Not Reportable 09/13/17 04:51 Spherocytes Not Reportable 09/13/17 04:51 Pappenheimer Bodies Not Reportable 09/13/17 04:51 Sickle Cells Not Reportable 09/13/17 04:51 Target Cells Not Reportable 09/13/17 04:51 Tear Drop Cells Not Reportable 09/13/17 04:51 Ovalocytes Few 09/13/17 04:51 Helmet Cells Not Reportable 09/13/17 04:51 [place] Bodies Not Reportable 09/13/17 04:51 [place] Rings Not Reportable 09/13/17 04:51 [place] Cells Few 09/13/17 04:51 Bite Cells Not Reportable 09/13/17 04:51 Crenated Cell Not Reportable 09/13/17 04:51 Elliptocytes Rare 09/13/17 04:51 Acanthocytes (Spur) Not Reportable 09/13/17 04:51 Rouleaux Not Reportable 09/13/17 04:51 Hemoglobin C Crystals Not Reportable 09/13/17 04:51 Schistocytes Not Reportable 09/13/17 04:51 Malaria parasites Not Reportable 09/13/17 04:51 Jose A Bodies Not Reportable 09/13/17 04:51 Hem Pathologist Commnt No 09/13/17 04:51 PT 15.7 Sec. (12.2-14.9) H 09/13/17 04:51 INR 1.18 (0.87-1.13) H 09/13/17 04:51 VBG pH 7.302 (7.320-7.420) L 09/10/17 17:50 Sodium 131 mmol/L (137-145) L 09/15/17 05:33 Potassium 4.0 mmol/L (3.6-5.0) 09/15/17 05:33 Chloride 98.8 mmol/L (98-107) 09/15/17 05:33 Carbon Dioxide 18 mmol/L (22-30) L 09/15/17 05:33 Anion Gap 18 mmol/L 09/15/17 05:33 BUN 15 mg/dL (7-17) 09/15/17 05:33 Creatinine 1.0 mg/dL (0.7-1.2) 09/15/17 05:33 Estimated GFR 55 ml/min 09/15/17 05:33 BUN/Creatinine Ratio 15 % 09/15/17 05:33 Glucose 162 mg/dL (65-100) H 09/15/17 05:33 POC Glucose 189 (70-105) H 09/15/17 07:19 Hemoglobin A1c 10.0 % (4-6) H 09/15/17 05:33 Lactic Acid 1.40 mmol/L (0.7-2.0) 09/11/17 06:57 Calcium 7.6 mg/dL (8.4-10.2) L 09/15/17 05:33 Phosphorus 4.20 mg/dL (2.5-4.5) D 09/13/17 04:51 Magnesium 1.80 mg/dL (1.7-2.3) 09/13/17 04:51 Total Bilirubin 0.20 mg/dL (0.1-1.2) 09/12/17 05:14 AST 9 units/L (5-40) 09/12/17 05:14 ALT 7 units/L (7-56) 09/12/17 05:14 Alkaline Phosphatase 115 units/L (35-129) 09/12/17 05:14 NT-Pro-B Natriuret Pep 4650 pg/mL (0-900) H 09/10/17 17:50 Total Protein 5.2 g/dL (6.3-8.2) L 09/12/17 05:14 Albumin 2.6 g/dL (3.9-5) L 09/12/17 05:14 Albumin/Globulin Ratio 1.0 % 09/12/17 05:14 Urine Color Yellow (Yellow) 09/11/17 02:15 Urine Turbidity Clear (Clear) 09/11/17 02:15 Urine pH 6.0 (5.0-7.0) 09/11/17 02:15 Ur Specific [place] 1.008 (1.003-1.030) 09/11/17 02:15 Urine Protein 30 mg/dl mg/dL (Negative) 09/11/17 02:15 Urine Glucose (UA) 50 mg/dL (Negative) 09/11/17 02:15 Urine Ketones Neg mg/dL (Negative) 09/11/17 02:15 Urine Blood Lg (Negative) 09/11/17 02:15 Urine Nitrite Neg (Negative) 09/11/17 02:15 Urine Bilirubin Neg (Negative) 09/11/17 02:15 Urine Urobilinogen < 2.0 mg/dL (<2.0) 09/11/17 02:15 Ur Leukocyte Esterase Lg (Negative) 09/11/17 02:15 Urine WBC (Auto) > 182.0 /HPF (0.0-6.0) H 09/11/17 02:15 Urine RBC (Auto) 25.0 /HPF (0.0-6.0) 09/11/17 02:15 U Epithel Cells (Auto) 6.0 /HPF (0-13.0) 09/11/17 02:15 Urine Bacteria (Auto) 4+ /HPF (Negative) 09/11/17 02:15 Urine WBC Clumps 3+ /HPF 09/11/17 02:15 Urine Creatinine 54.2 mg/dL (0.1-20.0) H 09/11/17 10:13 Urine Microalbumin 8.7 mg/dL (0.1-34.0) 09/11/17 02:15 Microalb/Creat Ratio 300.0 ug/mg 09/11/17 02:15 Urine Sodium 73 mmol/L 09/11/17 02:15 Urine Total Protein 49 mg/dL (5-11.8) H 09/11/17 10:13 Blood Type A POSITIVE 09/10/17 19:04 Antibody Screen Negative 09/10/17 19:04 Crossmatch See Detail 09/10/17 19:04
[2017-09-15] MEDS: PROTONIX IV SCH (09:20)
[2017-09-15] MEDS: SODIUM CHLORIDE FLUSH SYRINGE 10 ML IV SCH ×2 (09:20→21:39)
[2017-09-15] MEDS: TYLENOL PO PRN (09:21)
--- NOTE | 2017-09-15 13:19 | Gastroenterology Progress Note ---
Assessment and Plan GI: anemia stable wo further signs bleeding - follow h/h - EGD/colonoscopy in am Subjective Date of service: 09/15/17 Principal diagnosis: acute kidney injury Interval history: GI:no problems overnight Objective - Constitutional Vitals: Temp Pulse Resp BP Pulse Ox 99.2 F 98 H 18 116/48 97 09/15/17 07:25 09/15/17 10:00 09/15/17 10:00 09/15/17 07:31 09/15/17 10:00 General appearance: no acute distress - EENT Eyes: PERRL - Respiratory Respiratory: bilateral: CTA - Gastrointestinal General gastrointestinal: Present: soft, tender, non-distended - Labs CBC & Chem 7: 09/15/17 05:33 09/15/17 05:33 Labs: Laboratory Results - last 24 hr 09/14/17 09/14/17 09/15/17 16:38 22:35 05:33 WBC 10.7 RBC 3.10 L Hgb 9.0 L Hct 25.6 L MCV 83 MCH 29 MCHC 35 H RDW 16.3 H Plt Count 322 Lymph % (Auto) 10.4 L [place] % (Auto) 5.5 Eos % (Auto) 1.0 Baso % (Auto) 0.4 Lymph # 1.1 L [place] # 0.6 Eos # 0.1 Baso # 0.0 Seg Neutrophils % 82.7 H Seg Neutrophils # 8.8 H Sodium Potassium Chloride Carbon Dioxide Anion Gap BUN Creatinine Estimated GFR BUN/Creatinine Ratio Glucose POC Glucose 308 H 172 H Hemoglobin A1c Calcium 09/15/17 09/15/17 09/15/17 05:33 05:33 07:19 WBC RBC Hgb Hct MCV MCH MCHC RDW Plt Count Lymph % (Auto) [place] % (Auto) Eos % (Auto) Baso % (Auto) Lymph # [place] # Eos # Baso # Seg Neutrophils % Seg Neutrophils # Sodium 131 L Potassium 4.0 Chloride 98.8 Carbon Dioxide 18 L Anion Gap 18 BUN 15 Creatinine 1.0 Estimated GFR 55 BUN/Creatinine Ratio 15 Glucose 162 H POC Glucose 189 H Hemoglobin A1c 10.0 H Calcium 7.6 L 09/15/17 12:06 WBC RBC Hgb Hct MCV MCH MCHC RDW Plt Count Lymph % (Auto) [place] % (Auto) Eos % (Auto) Baso % (Auto) Lymph # [place] # Eos # Baso # Seg Neutrophils % Seg Neutrophils # Sodium Potassium Chloride Carbon Dioxide Anion Gap BUN Creatinine Estimated GFR BUN/Creatinine Ratio Glucose POC Glucose 171 H Hemoglobin A1c Calcium
[2017-09-15] MEDS ORDERED: GOLYTELY PO ONE (18:00)
[2017-09-15] MEDS: ZOFRAN IV PRN (21:39)
[2017-09-16 05:20] LABS: Basophils % (Auto) 0.4 % (0.0-1.8); Eosinophils # (Auto) 0.1 K/mm3 (0.0-0.4); Eosinophils % (Auto) 1.2 % (0.0-4.3); Hematocrit 27.4 % (30.3-42.9); Hemoglobin 9.5 gm/dl (10.1-14.3); Lymphocytes # (Auto) 0.8 K/mm3 (1.2-5.4); Lymphocytes % (Auto) 9.8 % (13.4-35.0); Mean Corpuscular HGB Conc 35 % (30-34); Mean Corpuscular Hemoglobin 29 pg (28-32); Mean Corpuscular Volume 83 fl (79-97); Monocytes # (Auto) 0.5 K/mm3 (0.0-0.8); Platelet Count 351 K/mm3 (140-440); Red Blood Count 3.29 M/mm3 (3.65-5.03); Red Cell Distribution Width 16.9 % (13.2-15.2)
[2017-09-16 05:24] LABS: BUN/Creatinine Ratio 18; Blood Urea Nitrogen 14 mg/dL (7-17); Calcium 7.7 mg/dL (8.4-10.2); Hemolysis Index 3
[2017-09-16] MEDS: AZACTAM 1,000 MG in NACL 0.9% 20 ML IV SCH (05:29)
[2017-09-16] MEDS: HumuLIN R SUB-Q SCH ×4 (07:30→23:49)
--- NOTE | 2017-09-16 07:45 | Progress Note ---
Assessment and Plan Assessment and plan: --GI bleeding/heme-positive stool, anemia Scheduled for endoscopy today avoid NSAIDs, anticoagulants --Mild hyponatremia; resolved --anemia with heme positive stool Status post blood transfusion, hemoglobin today is 8.5- 9.5 --Gram-negative sepsis/the gram-negative bacteremia; Klebsiella Received aztreonam, changed to Levaquin, contact isolation, ID following --Sepsis secondary to urinary tract infection; present on admission --Diabetic ketoacidosis; resolved --Type 2 diabetes mellitus; moderate control continue Accu-Chek sliding scale coverage and ADA diet and increase 7030 insulin to 10 units twice a day ,A1c 10 --Leukocytosis; secondary to sepsis due UTI, trending down --Elevated BNP more than 4000; LVEF 60% Probably diastolic dysfunction --Acute kidney injury; vasomotor nephropathy, resolved --DVT prophylaxis; SCDs, DC heparin in view of anemia and heme-positive stool Plan of care discussed with the patient and her nurse Consults and recommendations noted and appreciated History Interval history: Patient seen and examined this morning medications reviewed Schedule for endoscopy today No new episodes of bleeding Alert awake oriented 3 not in acute distress vital signs reviewed Hospitalist Physical - Constitutional Vitals: Temp Pulse Resp BP Pulse Ox 98.5 F 95 H 18 111/46 94 09/16/17 06:29 09/16/17 06:29 09/16/17 06:29 09/16/17 06:29 09/16/17 06:29 General appearance: Present: no acute distress, well-nourished - EENT Eyes: Present: PERRL, EOM intact - Neck Neck: Present: supple, normal ROM - Respiratory Respiratory effort: normal Respiratory: bilateral: diminished, negative: rales, rhonchi, wheezing - Cardiovascular Rhythm: regular Heart Sounds: Present: S1 & S2 - Extremities Extremities: no ischemia, No edema Peripheral Pulses: within normal limits - Abdominal General gastrointestinal: soft, non-tender, non-distended, normal bowel sounds - Integumentary Integumentary: Present: clear, warm - Psychiatric Psychiatric: appropriate mood/affect, cooperative - Neurologic Neurologic: CNII-XII intact, moves all extremities Results - Labs CBC & Chem 7: 09/16/17 04:51 09/16/17 04:51 Labs: Laboratory Last Values WBC 8.5 K/mm3 (4.5-11.0) 09/16/17 04:51 RBC 3.29 M/mm3 (3.65-5.03) L 09/16/17 04:51 Hgb 9.5 gm/dl (10.1-14.3) L 09/16/17 04:51 Hct 27.4 % (30.3-42.9) L 09/16/17 04:51 MCV 83 fl (79-97) 09/16/17 04:51 MCH 29 pg (28-32) 09/16/17 04:51 MCHC 35 % (30-34) H 09/16/17 04:51 RDW 16.9 % (13.2-15.2) H 09/16/17 04:51 Plt Count 351 K/mm3 (140-440) 09/16/17 04:51 Lymph % (Auto) 9.8 % (13.4-35.0) L 09/16/17 04:51 [place] % (Auto) 6.0 % (0.0-7.3) 09/16/17 04:51 Eos % (Auto) 1.2 % (0.0-4.3) 09/16/17 04:51 Baso % (Auto) 0.4 % (0.0-1.8) 09/16/17 04:51 Lymph # 0.8 K/mm3 (1.2-5.4) L 09/16/17 04:51 [place] # 0.5 K/mm3 (0.0-0.8) 09/16/17 04:51 Eos # 0.1 K/mm3 (0.0-0.4) 09/16/17 04:51 Baso # 0.0 K/mm3 (0.0-0.1) 09/16/17 04:51 Add Manual Diff Complete 09/13/17 04:51 Total Counted 100 09/13/17 04:51 Seg Neutrophils % 82.6 % (40.0-70.0) H 09/16/17 04:51 Seg Neuts % (Manual) 81.0 % (40.0-70.0) H 09/13/17 04:51 Band Neutrophils % 16.0 % 09/13/17 04:51 Lymphocytes % (Manual) 3.0 % (13.4-35.0) L 09/13/17 04:51 Reactive Lymphs % (Man) 0 % 09/13/17 04:51 Monocytes % (Manual) 0 % (0.0-7.3) 09/13/17 04:51 Eosinophils % (Manual) 0 % (0.0-4.3) 09/13/17 04:51 Basophils % (Manual) 0 % (0.0-1.8) 09/13/17 04:51 Metamyelocytes % 0 % 09/13/17 04:51 Myelocytes % 0 % 09/13/17 04:51 Promyelocytes % 0 % 09/13/17 04:51 Blast Cells % 0 % 09/13/17 04:51 Nucleated RBC % Not Reportable 09/13/17 04:51 Seg Neutrophils # 7.0 K/mm3 (1.8-7.7) 09/16/17 04:51 Seg Neutrophils # Man 17.7 K/mm3 (1.8-7.7) H 09/13/17 04:51 Band Neutrophils # 3.5 K/mm3 09/13/17 04:51 Lymphocytes # (Manual) 0.7 K/mm3 (1.2-5.4) L 09/13/17 04:51 Abs React Lymphs (Man) 0.0 K/mm3 09/13/17 04:51 Monocytes # (Manual) 0.0 K/mm3 (0.0-0.8) 09/13/17 04:51 Eosinophils # (Manual) 0.0 K/mm3 (0.0-0.4) 09/13/17 04:51 Basophils # (Manual) 0.0 K/mm3 (0.0-0.1) 09/13/17 04:51 Metamyelocytes # 0.0 K/mm3 09/13/17 04:51 Myelocytes # 0.0 K/mm3 09/13/17 04:51 Promyelocytes # 0.0 K/mm3 09/13/17 04:51 Blast Cells # 0.0 K/mm3 09/13/17 04:51 Pathologist Review 09/10/17 15:43 WBC Morphology Not Reportable 09/13/17 04:51 Hypersegmented Neuts Not Reportable 09/13/17 04:51 Hyposegmented Neuts Not Reportable 09/13/17 04:51 Hypogranular Neuts Not Reportable 09/13/17 04:51 Smudge Cells Not Reportable 09/13/17 04:51 Toxic Granulation Not Reportable 09/13/17 04:51 Toxic Vacuolation Not Reportable 09/13/17 04:51 Dohle Bodies Not Reportable 09/13/17 04:51 Pelger-Huet Anomaly Not Reportable 09/13/17 04:51 Cecilia Rods Not Reportable 09/13/17 04:51 Platelet Estimate Appears normal 09/13/17 04:51 Clumped Platelets Rare 09/13/17 04:51 Plt Clumps, EDTA Not Reportable 09/13/17 04:51 Large Platelets Few 09/13/17 04:51 Giant Platelets Not Reportable 09/13/17 04:51 Platelet Satelliting Not Reportable 09/13/17 04:51 Plt Morphology Comment Not Reportable 09/13/17 04:51 RBC Morphology Not Reportable 09/13/17 04:51 Dimorphic RBCs Not Reportable 09/13/17 04:51 Polychromasia Few 09/13/17 04:51 Hypochromasia Not Reportable 09/13/17 04:51 Poikilocytosis Not Reportable 09/13/17 04:51 Anisocytosis 1+ 09/13/17 04:51 Microcytosis Not Reportable 09/13/17 04:51 Macrocytosis Not Reportable 09/13/17 04:51 Spherocytes Not Reportable 09/13/17 04:51 Pappenheimer Bodies Not Reportable 09/13/17 04:51 Sickle Cells Not Reportable 09/13/17 04:51 Target Cells Not Reportable 09/13/17 04:51 Tear Drop Cells Not Reportable 09/13/17 04:51 Ovalocytes Few 09/13/17 04:51 Helmet Cells Not Reportable 09/13/17 04:51 [place] Bodies Not Reportable 09/13/17 04:51 [place] Rings Not Reportable 09/13/17 04:51 [place] Cells Few 09/13/17 04:51 Bite Cells Not Reportable 09/13/17 04:51 Crenated Cell Not Reportable 09/13/17 04:51 Elliptocytes Rare 09/13/17 04:51 Acanthocytes (Spur) Not Reportable 09/13/17 04:51 Rouleaux Not Reportable 09/13/17 04:51 Hemoglobin C Crystals Not Reportable 09/13/17 04:51 Schistocytes Not Reportable 09/13/17 04:51 Malaria parasites Not Reportable 09/13/17 04:51 Jose A Bodies Not Reportable 09/13/17 04:51 Hem Pathologist Commnt No 09/13/17 04:51 PT 15.7 Sec. (12.2-14.9) H 09/13/17 04:51 INR 1.18 (0.87-1.13) H 09/13/17 04:51 VBG pH 7.302 (7.320-7.420) L 09/10/17 17:50 Sodium 138 mmol/L (137-145) D 09/16/17 04:51 Potassium 3.8 mmol/L (3.6-5.0) 09/16/17 04:51 Chloride 101.5 mmol/L (98-107) 09/16/17 04:51 Carbon Dioxide 21 mmol/L (22-30) L 09/16/17 04:51 Anion Gap 19 mmol/L 09/16/17 04:51 BUN 14 mg/dL (7-17) 09/16/17 04:51 Creatinine 0.8 mg/dL (0.7-1.2) 09/16/17 04:51 Estimated GFR > 60 ml/min 09/16/17 04:51 BUN/Creatinine Ratio 18 % 09/16/17 04:51 Glucose 180 mg/dL (65-100) H 09/16/17 04:51 POC Glucose 232 (70-105) H 09/15/17 22:39 Hemoglobin A1c 10.0 % (4-6) H 09/15/17 05:33 Lactic Acid 1.40 mmol/L (0.7-2.0) 09/11/17 06:57 Calcium 7.7 mg/dL (8.4-10.2) L 09/16/17 04:51 Phosphorus 4.20 mg/dL (2.5-4.5) D 09/13/17 04:51 Magnesium 1.80 mg/dL (1.7-2.3) 09/13/17 04:51 Total Bilirubin 0.20 mg/dL (0.1-1.2) 09/12/17 05:14 AST 9 units/L (5-40) 04/26/18 05:14 ALT 7 units/L (7-56) 09/12/17 05:14 Alkaline Phosphatase 115 units/L (35-129) 09/12/17 05:14 NT-Pro-B Natriuret Pep 4650 pg/mL (0-900) H 09/10/17 17:50 Total Protein 5.2 g/dL (6.3-8.2) L 09/12/17 05:14 Albumin 2.6 g/dL (3.9-5) L 09/12/17 05:14 Albumin/Globulin Ratio 1.0 % 09/12/17 05:14 Urine Color Yellow (Yellow) 09/11/17 02:15 Urine Turbidity Clear (Clear) 09/11/17 02:15 Urine pH 6.0 (5.0-7.0) 09/11/17 02:15 Ur Specific [place] 1.008 (1.003-1.030) 09/11/17 02:15 Urine Protein 30 mg/dl mg/dL (Negative) 09/11/17 02:15 Urine Glucose (UA) 50 mg/dL (Negative) 09/11/17 02:15 Urine Ketones Neg mg/dL (Negative) 09/11/17 02:15 Urine Blood Lg (Negative) 09/11/17 02:15 Urine Nitrite Neg (Negative) 09/11/17 02:15 Urine Bilirubin Neg (Negative) 09/11/17 02:15 Urine Urobilinogen < 2.0 mg/dL (<2.0) 09/11/17 02:15 Ur Leukocyte Esterase Lg (Negative) 09/11/17 02:15 Urine WBC (Auto) > 182.0 /HPF (0.0-6.0) H 09/11/17 02:15 Urine RBC (Auto) 25.0 /HPF (0.0-6.0) 09/11/17 02:15 U Epithel Cells (Auto) 6.0 /HPF (0-13.0) 09/11/17 02:15 Urine Bacteria (Auto) 4+ /HPF (Negative) 09/11/17 02:15 Urine WBC Clumps 3+ /HPF 09/11/17 02:15 Urine Creatinine 54.2 mg/dL (0.1-20.0) H 09/11/17 10:13 Urine Microalbumin 8.7 mg/dL (0.1-34.0) 09/11/17 02:15 Microalb/Creat Ratio 300.0 ug/mg 09/11/17 02:15 Urine Sodium 73 mmol/L 09/11/17 02:15 Urine Total Protein 49 mg/dL (5-11.8) H 09/11/17 10:13 Blood Type A POSITIVE 09/10/17 19:04 Antibody Screen Negative 09/10/17 19:04 Crossmatch See Detail 09/10/17 19:04
[2017-09-16] MEDS: PROTONIX IV SCH (09:17)
[2017-09-16] MEDS: SODIUM CHLORIDE FLUSH SYRINGE 10 ML IV SCH ×2 (09:18→23:51)
--- NOTE | 2017-09-16 10:25 | Progress Note ---
Assessment and Plan Assessment: 1) Severe Sepsis: resolved. Etiology most likely UTI +/- bacteremia 2) UTI: urine cx grew>100K mixed bacteria. US renal no hydro or stones. 3) Klebsiella septicemia: source ? UTI 4) ?Aspiration pneumonitis: repeat CXR neg 5) DM with DKA - better 6) NICKIE - resolved 7) Penicillin allergy, remote 8) Anemia: worsening Plan: -stop aztreonam D5 -start levaquin 750 mg po qday total 14 days until 09/26/17 I will sign off Thank you for your consultation, will follow up with you. Gudelia Segura MD Infectious Diseases Specialist [facility] ([facility]) M [phone] O [phone] Subjective Date of service: 09/16/17 Principal diagnosis: acute kidney injury Interval history: feels better, talking, no complaints except for generalized weakness Microbiology: Blood cultures: 09/10 Kleb 4 of 4 bottles 09/11 Kleb 1 of 4 09/13 ngtd Urine cultures: 09/11 >100K mixed bacteria Current Antimicrobials: Aztreonam Previous Antimicrobials: Vancomycin Levaquin Objective - Exam Narrative Exam: General appearance: Alert in NAD, conversant Eyes: anicteric sclerae, moist conjunctivae; no lid-lag; PERRLA HENT: Atraumatic; oropharynx clear with moist mucous membranes and no mucosal ulcerations/no oral thrush; normal hard and soft palate. Normal external ears. Neck: Trachea midline; supple, no thyromegaly or lymphadenopathy Lungs: RRL crackles CV: RRR, no murmurs Abdomen: Soft, non-tender; no masses or hepatosplenomegaly Extremities: No peripheral edema or extremity lymphadenopathy Skin: Normal temperature, turgor and texture; no rash, ulcers or subcutaneous nodules Psych: Appropriate affect, alert and oriented to person, place and time. Neuro: alert and oriented x 3. Moving all extermities Lines: No CVL / PICC - Constitutional Vitals: Vital Signs Temp Pulse Resp BP Pulse Ox 98.5 F 77 16 111/46 95 09/16/17 06:29 09/16/17 09:56 09/16/17 09:56 09/16/17 06:29 09/16/17 09:56 Temperature -Last 24 Hours Temperature 98.5 F Temperature 98.2 F Temperature 98.2 F Temperature 98.5 F - Labs CBC & Chem 7: 09/16/17 04:51 09/16/17 04:51 Labs: Abnormal lab results 09/15/17 09/15/17 09/15/17 Range/Units 12:06 16:16 22:39 RBC (3.65-5.03) M/mm3 Hgb (10.1-14.3) gm/dl Hct (30.3-42.9) % MCHC (30-34) % RDW (13.2-15.2) % Lymph % (Auto) (13.4-35.0) % Lymph # (1.2-5.4) K/mm3 Seg Neutrophils % (40.0-70.0) % Carbon Dioxide (22-30) mmol/L Glucose (65-100) mg/dL POC Glucose 171 H 149 H 232 H (70-105) Calcium (8.4-10.2) mg/dL 09/16/17 09/16/17 09/16/17 Range/Units 04:51 04:51 07:29 RBC 3.29 L (3.65-5.03) M/mm3 Hgb 9.5 L (10.1-14.3) gm/dl Hct 27.4 L (30.3-42.9) % MCHC 35 H (30-34) % RDW 16.9 H (13.2-15.2) % Lymph % (Auto) 9.8 L (13.4-35.0) % Lymph # 0.8 L (1.2-5.4) K/mm3 Seg Neutrophils % 82.6 H (40.0-70.0) % Carbon Dioxide 21 L (22-30) mmol/L Glucose 180 H (65-100) mg/dL POC Glucose 214 H (70-105) Calcium 7.7 L (8.4-10.2) mg/dL
[2017-09-16] MEDS: LEVAQUIN PO SCH (11:21)
[2017-09-16] MEDS ORDERED: D50W (25GM) Syringe IV ONE (11:37)
--- NOTE | 2017-09-16 16:45 | Gastroenterology Progress Note ---
Assessment and Plan anemia - normocytic, new/worsening onset over last couple years. no overt bleeding. completed half of prep overnight. still with some solid stool. restart clear liquid diet remainder of day and complete rest of golytely prep until stools cleared. plan for egd/colonoscopy tomorrow. Subjective Date of service: 09/16/17 Principal diagnosis: acute kidney injury, anemia Interval history: pt seen and examined. drank half of prep overnight, still with some solid stool but mostly clear. no overt bleeding. Objective - Constitutional Vitals: Temp Pulse Resp BP Pulse Ox 98.4 F 74 16 114/51 97 09/16/17 13:26 09/16/17 13:26 09/16/17 13:26 09/16/17 13:26 09/16/17 13:26 General appearance: no acute distress - Respiratory Respiratory effort: normal Respiratory: bilateral: CTA - Cardiovascular Rhythm: regular Heart Sounds: Present: S1 & S2 - Gastrointestinal General gastrointestinal: Present: soft, non-tender, non-distended - Neurologic Neurological: alert and oriented x3 - Psychiatric Psychiatric: appropriate mood/affect - Labs CBC & Chem 7: 09/16/17 04:51 09/16/17 04:51 Labs: Laboratory Results - last 24 hr 09/15/17 09/16/17 09/16/17 22:39 04:51 04:51 WBC 8.5 RBC 3.29 L Hgb 9.5 L Hct 27.4 L MCV 83 MCH 29 MCHC 35 H RDW 16.9 H Plt Count 351 Lymph % (Auto) 9.8 L Ogle % (Auto) 6.0 Eos % (Auto) 1.2 Baso % (Auto) 0.4 Lymph # 0.8 L Ogle # 0.5 Eos # 0.1 Baso # 0.0 Seg Neutrophils % 82.6 H Seg Neutrophils # 7.0 Sodium 138 D Potassium 3.8 Chloride 101.5 Carbon Dioxide 21 L Anion Gap 19 BUN 14 Creatinine 0.8 Estimated GFR > 60 BUN/Creatinine Ratio 18 Glucose 180 H POC Glucose 232 H Calcium 7.7 L 09/16/17 09/16/17 09/16/17 07:29 11:23 16:18 WBC RBC Hgb Hct MCV MCH MCHC RDW Plt Count Lymph % (Auto) Ogle % (Auto) Eos % (Auto) Baso % (Auto) Lymph # Ogle # Eos # Baso # Seg Neutrophils % Seg Neutrophils # Sodium Potassium Chloride Carbon Dioxide Anion Gap BUN Creatinine Estimated GFR BUN/Creatinine Ratio Glucose POC Glucose 214 H 81 169 H Calcium
[2017-09-17 06:27] LABS: Basophils # (Auto) 0.1 K/mm3 (0.0-0.1); Basophils % (Auto) 0.7 % (0.0-1.8); Eosinophils # (Auto) 0.2 K/mm3 (0.0-0.4); Eosinophils % (Auto) 2.3 % (0.0-4.3); Hematocrit 27.7 % (30.3-42.9); Hemoglobin 9.7 gm/dl (10.1-14.3); Lymphocytes % (Auto) 12.6 % (13.4-35.0); Mean Corpuscular HGB Conc 35 % (30-34); Mean Corpuscular Hemoglobin 29 pg (28-32); Mean Corpuscular Volume 83 fl (79-97); Monocytes # (Auto) 0.6 K/mm3 (0.0-0.8); Monocytes % (Auto) 7.3 % (0.0-7.3); Platelet Count 392 K/mm3 (140-440); Red Blood Count 3.33 M/mm3 (3.65-5.03); Red Cell Distribution Width 16.2 % (13.2-15.2)
[2017-09-17 06:55] LABS: BUN/Creatinine Ratio 13; Blood Urea Nitrogen 10 mg/dL (7-17); Calcium 7.9 mg/dL (8.4-10.2); Hemolysis Index 0
--- NOTE | 2017-09-17 07:28 | Progress Note ---
Assessment and Plan Assessment and plan: --GI bleeding/heme-positive stool, anemia Due to poor colon preparation for endoscopy rescheduled for today avoid NSAIDs, anticoagulants --Mild hyponatremia; resolved --anemia with heme positive stool Status post blood transfusion, hemoglobin today is 8.5- 9.7 --Gram-negative sepsis/the gram-negative bacteremia; Klebsiella Received aztreonam, changed to Levaquin, contact isolation, ID following --Sepsis secondary to urinary tract infection; present on admission --Diabetic ketoacidosis; resolved --Type 2 diabetes mellitus; moderate control continue Accu-Chek sliding scale coverage and ADA diet and increase 7030 insulin to 10 units twice a day ,A1c 10 --Leukocytosis; secondary to sepsis due UTI, trending down --Elevated BNP more than 4000; LVEF 60% Probably diastolic dysfunction --Acute kidney injury; vasomotor nephropathy, resolved --DVT prophylaxis; SCDs, DC heparin in view of anemia and heme-positive stool Following endoscopy, if negative and patient is stable may be discharged this afternoon or tomorrow morning Plan of care discussed with the patient and her nurse Consults and recommendations noted and appreciated History Interval history: Patient seen and examined this morning medical records reviewed Scheduled for endoscopy yesterday, however rescheduled for today for poor preparation Today patient is comfortable no new complaints Vital signs stable Hospitalist Physical - Constitutional Vitals: Temp Pulse Resp BP Pulse Ox 97.5 F L 82 20 155/68 99 09/16/17 21:09 09/16/17 21:09 09/16/17 22:00 09/16/17 21:09 09/16/17 22:00 General appearance: Present: no acute distress, well-nourished - EENT Eyes: Present: PERRL, EOM intact - Neck Neck: Present: supple, normal ROM - Respiratory Respiratory effort: normal Respiratory: negative: rales, rhonchi, wheezing - Cardiovascular Rhythm: regular Heart Sounds: Present: S1 & S2 - Extremities Extremities: no ischemia, No edema - Abdominal General gastrointestinal: soft, non-tender, non-distended, normal bowel sounds - Integumentary Integumentary: Present: clear, warm - Psychiatric Psychiatric: appropriate mood/affect, cooperative - Neurologic Neurologic: CNII-XII intact, moves all extremities Results - Labs CBC & Chem 7: 09/17/17 06:15 09/17/17 06:15 Labs: Laboratory Last Values WBC 8.2 K/mm3 (4.5-11.0) 09/17/17 06:15 RBC 3.33 M/mm3 (3.65-5.03) L 09/17/17 06:15 Hgb 9.7 gm/dl (10.1-14.3) L 09/17/17 06:15 Hct 27.7 % (30.3-42.9) L 09/17/17 06:15 MCV 83 fl (79-97) 09/17/17 06:15 MCH 29 pg (28-32) 09/17/17 06:15 MCHC 35 % (30-34) H 09/17/17 06:15 RDW 16.2 % (13.2-15.2) H 09/17/17 06:15 Plt Count 392 K/mm3 (140-440) 09/17/17 06:15 Lymph % (Auto) 12.6 % (13.4-35.0) L 09/17/17 06:15 [place] % (Auto) 7.3 % (0.0-7.3) 09/17/17 06:15 Eos % (Auto) 2.3 % (0.0-4.3) 09/17/17 06:15 Baso % (Auto) 0.7 % (0.0-1.8) 09/17/17 06:15 Lymph # 1.0 K/mm3 (1.2-5.4) L 09/17/17 06:15 [place] # 0.6 K/mm3 (0.0-0.8) 09/17/17 06:15 Eos # 0.2 K/mm3 (0.0-0.4) 09/17/17 06:15 Baso # 0.1 K/mm3 (0.0-0.1) 09/17/17 06:15 Add Manual Diff Complete 09/13/17 04:51 Total Counted 100 09/13/17 04:51 Seg Neutrophils % 77.1 % (40.0-70.0) H 09/17/17 06:15 Seg Neuts % (Manual) 81.0 % (40.0-70.0) H 09/13/17 04:51 Band Neutrophils % 16.0 % 09/13/17 04:51 Lymphocytes % (Manual) 3.0 % (13.4-35.0) L 09/13/17 04:51 Reactive Lymphs % (Man) 0 % 09/13/17 04:51 Monocytes % (Manual) 0 % (0.0-7.3) 09/13/17 04:51 Eosinophils % (Manual) 0 % (0.0-4.3) 09/13/17 04:51 Basophils % (Manual) 0 % (0.0-1.8) 09/13/17 04:51 Metamyelocytes % 0 % 09/13/17 04:51 Myelocytes % 0 % 09/13/17 04:51 Promyelocytes % 0 % 09/13/17 04:51 Blast Cells % 0 % 09/13/17 04:51 Nucleated RBC % Not Reportable 09/13/17 04:51 Seg Neutrophils # 6.3 K/mm3 (1.8-7.7) 09/17/17 06:15 Seg Neutrophils # Man 17.7 K/mm3 (1.8-7.7) H 09/13/17 04:51 Band Neutrophils # 3.5 K/mm3 09/13/17 04:51 Lymphocytes # (Manual) 0.7 K/mm3 (1.2-5.4) L 09/13/17 04:51 Abs React Lymphs (Man) 0.0 K/mm3 09/13/17 04:51 Monocytes # (Manual) 0.0 K/mm3 (0.0-0.8) 09/13/17 04:51 Eosinophils # (Manual) 0.0 K/mm3 (0.0-0.4) 09/13/17 04:51 Basophils # (Manual) 0.0 K/mm3 (0.0-0.1) 09/13/17 04:51 Metamyelocytes # 0.0 K/mm3 09/13/17 04:51 Myelocytes # 0.0 K/mm3 09/13/17 04:51 Promyelocytes # 0.0 K/mm3 09/13/17 04:51 Blast Cells # 0.0 K/mm3 09/13/17 04:51 Pathologist Review 09/10/17 15:43 WBC Morphology Not Reportable 09/13/17 04:51 Hypersegmented Neuts Not Reportable 09/13/17 04:51 Hyposegmented Neuts Not Reportable 09/13/17 04:51 Hypogranular Neuts Not Reportable 09/13/17 04:51 Smudge Cells Not Reportable 09/13/17 04:51 Toxic Granulation Not Reportable 09/13/17 04:51 Toxic Vacuolation Not Reportable 09/13/17 04:51 Dohle Bodies Not Reportable 09/13/17 04:51 Pelger-Huet Anomaly Not Reportable 09/13/17 04:51 Cecilia Rods Not Reportable 09/13/17 04:51 Platelet Estimate Appears normal 09/13/17 04:51 Clumped Platelets Rare 09/13/17 04:51 Plt Clumps, EDTA Not Reportable 09/13/17 04:51 Large Platelets Few 09/13/17 04:51 Giant Platelets Not Reportable 09/13/17 04:51 Platelet Satelliting Not Reportable 09/13/17 04:51 Plt Morphology Comment Not Reportable 09/13/17 04:51 RBC Morphology Not Reportable 09/13/17 04:51 Dimorphic RBCs Not Reportable 09/13/17 04:51 Polychromasia Few 09/13/17 04:51 Hypochromasia Not Reportable 09/13/17 04:51 Poikilocytosis Not Reportable 09/13/17 04:51 Anisocytosis 1+ 09/13/17 04:51 Microcytosis Not Reportable 09/13/17 04:51 Macrocytosis Not Reportable 09/13/17 04:51 Spherocytes Not Reportable 09/13/17 04:51 Pappenheimer Bodies Not Reportable 09/13/17 04:51 Sickle Cells Not Reportable 09/13/17 04:51 Target Cells Not Reportable 09/13/17 04:51 Tear Drop Cells Not Reportable 09/13/17 04:51 Ovalocytes Few 09/13/17 04:51 Helmet Cells Not Reportable 09/13/17 04:51 [place] Bodies Not Reportable 09/13/17 04:51 [place] Rings Not Reportable 09/13/17 04:51 [place] Cells Few 09/13/17 04:51 Bite Cells Not Reportable 09/13/17 04:51 Crenated Cell Not Reportable 09/13/17 04:51 Elliptocytes Rare 09/13/17 04:51 Acanthocytes (Spur) Not Reportable 09/13/17 04:51 Rouleaux Not Reportable 09/13/17 04:51 Hemoglobin C Crystals Not Reportable 09/13/17 04:51 Schistocytes Not Reportable 09/13/17 04:51 Malaria parasites Not Reportable 09/13/17 04:51 Jose A Bodies Not Reportable 09/13/17 04:51 Hem Pathologist Commnt No 09/13/17 04:51 PT 15.7 Sec. (12.2-14.9) H 09/13/17 04:51 INR 1.18 (0.87-1.13) H 09/13/17 04:51 VBG pH 7.302 (7.320-7.420) L 09/10/17 17:50 Sodium 139 mmol/L (137-145) 09/17/17 06:15 Potassium 3.5 mmol/L (3.6-5.0) L 09/17/17 06:15 Chloride 99.8 mmol/L (98-107) 09/17/17 06:15 Carbon Dioxide 24 mmol/L (22-30) 09/17/17 06:15 Anion Gap 19 mmol/L 09/17/17 06:15 BUN 10 mg/dL (7-17) 09/17/17 06:15 Creatinine 0.8 mg/dL (0.7-1.2) 09/17/17 06:15 Estimated GFR > 60 ml/min 09/17/17 06:15 BUN/Creatinine Ratio 13 % 09/17/17 06:15 Glucose 116 mg/dL (65-100) H 09/17/17 06:15 POC Glucose 389 (70-105) H 09/16/17 22:10 Hemoglobin A1c 10.0 % (4-6) H 09/15/17 05:33 Lactic Acid 1.40 mmol/L (0.7-2.0) 09/11/17 06:57 Calcium 7.9 mg/dL (8.4-10.2) L 09/17/17 06:15 Phosphorus 4.20 mg/dL (2.5-4.5) D 09/13/17 04:51 Magnesium 1.80 mg/dL (1.7-2.3) 09/13/17 04:51 Total Bilirubin 0.20 mg/dL (0.1-1.2) 09/12/17 05:14 AST 9 units/L (5-40) 09/12/17 05:14 ALT 7 units/L (7-56) 09/12/17 05:14 Alkaline Phosphatase 115 units/L (35-129) 09/12/17 05:14 NT-Pro-B Natriuret Pep 4650 pg/mL (0-900) H 09/10/17 17:50 Total Protein 5.2 g/dL (6.3-8.2) L 09/12/17 05:14 Albumin 2.6 g/dL (3.9-5) L 09/12/17 05:14 Albumin/Globulin Ratio 1.0 % 09/12/17 05:14 Urine Color Yellow (Yellow) 09/11/17 02:15 Urine Turbidity Clear (Clear) 09/11/17 02:15 Urine pH 6.0 (5.0-7.0) 09/11/17 02:15 Ur Specific [place] 1.008 (1.003-1.030) 09/11/17 02:15 Urine Protein 30 mg/dl mg/dL (Negative) 09/11/17 02:15 Urine Glucose (UA) 50 mg/dL (Negative) 09/11/17 02:15 Urine Ketones Neg mg/dL (Negative) 09/11/17 02:15 Urine Blood Lg (Negative) 09/11/17 02:15 Urine Nitrite Neg (Negative) 09/11/17 02:15 Urine Bilirubin Neg (Negative) 09/11/17 02:15 Urine Urobilinogen < 2.0 mg/dL (<2.0) 09/11/17 02:15 Ur Leukocyte Esterase Lg (Negative) 09/11/17 02:15 Urine WBC (Auto) > 182.0 /HPF (0.0-6.0) H 09/11/17 02:15 Urine RBC (Auto) 25.0 /HPF (0.0-6.0) 09/11/17 02:15 U Epithel Cells (Auto) 6.0 /HPF (0-13.0) 09/11/17 02:15 Urine Bacteria (Auto) 4+ /HPF (Negative) 09/11/17 02:15 Urine WBC Clumps 3+ /HPF 09/11/17 02:15 Urine Creatinine 54.2 mg/dL (0.1-20.0) H 09/11/17 10:13 Urine Microalbumin 8.7 mg/dL (0.1-34.0) 09/11/17 02:15 Microalb/Creat Ratio 300.0 ug/mg 09/11/17 02:15 Urine Sodium 73 mmol/L 09/11/17 02:15 Urine Total Protein 49 mg/dL (5-11.8) H 09/11/17 10:13 Blood Type A POSITIVE 09/10/17 19:04 Antibody Screen Negative 09/10/17 19:04 Crossmatch See Detail 09/10/17 19:04
[2017-09-17] MEDS: HumuLIN R SUB-Q SCH ×3 (07:45→18:04)
[2017-09-17] MEDS: PROTONIX IV SCH (10:05)
[2017-09-17] MEDS: KCL 10MEQ/100ML 10 MEQ/100 ML BAG IV SCH ×2 (10:05→11:39)
[2017-09-17] MEDS: SODIUM CHLORIDE FLUSH SYRINGE 10 ML IV SCH (10:06)
[2017-09-17] MEDS ORDERED: NACL 0.9% 1000 ML 1,000 ML ONE (12:26)
[2017-09-17] MEDS ORDERED: WATER FOR IRRIG STERILE IR ONE ×2 (12:37→13:58)
[2017-09-17] MEDS ORDERED: NACL 0.9% 1000 ML 1,000 ML IV SCH (13:00)
--- NOTE | 2017-09-17 13:34 | Anesthesia Consultation ---
Anesthesia Consult and Med Hx Date of service: 09/17/17 - Airway Anesthetic Teeth Evaluation: Poor (6 front teeth bottom front) ROM Head & Neck: Adequate Mental/Hyoid Distance: Adequate - Pre-Operative Health Status ASA Pre-Surgery Classification: ASA3 Proposed Anesthetic Plan: MAC - Pulmonary Hx Smoking: Yes (quit 2 month ago) COPD: Yes - Cardiovascular System Hx Hypertension: Yes Hx Peripheral Vascular Disease: Yes (diabetic feet) - Central Nervous System Hx Psychiatric Problems: No - Gastrointestinal Hx Gastroesophageal Reflux Disease: Yes - Endocrine Hx Renal Disease: Yes Hx Insulin Dependent Diabetes: Yes (admited in DKA) - Hematic Hx Anemia: Yes - Other Systems Hx Alcohol Use: Yes - Additional Comments Anesthesia Medical History Comments: sepsis
--- NOTE | 2017-09-17 13:36 | Anesthesia Day of Surgery ---
Anesthesia Day of Surgery - Day of Surgery Patient Examined: Yes Patient H&P Reviewed: Yes Patient is NPO: Yes Cardiac Clearance: Yes
[2017-09-17] MEDS ORDERED: DIPRIVAN 10 MG/ML IV ONE ×2 (13:53)
--- NOTE | 2017-09-17 14:30 | Post Operative Note ---
Pre-op diagnosis: iron deficiency anemia Post-op diagnosis: other (EGD: mild duodenitis (bulb), otherwise unremarkle upper endoscopy; colonoscopy: scattered diverticula, otherwise unremarkable colonoscopy) Findings: EGD: mild duodenitis, otherwise unremarkable upper endoscopy. Duodenal biopsies obtained (r/o celiac) Colonoscopy: scattered diverticula, otherwise no significant findings to explain anemia. fair prep Procedure: 1. EGD with biopsies 2. Colonoscopy Anesthesia: MAC Surgeon: GENEVIEVE ARENAS Estimated blood loss: minimal Pathology: list (Jar A - duodenal biopsies) Specimen disposition: to lab Condition: stable Disposition: floor
--- NOTE | 2017-09-17 14:32 | Operative Report ---
Operative Report Operative Report: Esophagogastroduodenoscopy Procedure Note with Biopsies Date of procedure: 09/17/2017 Endoscopist: Satanm Saldivar Pre-op diagnosis: Iron deficiency anemia Post-op diagnosis: Mild duodenitis, otherwise unremarkable upper endoscopy Anesthesia: MAC Complications: No immediate complications Estimated blood loss: minimal Procedure: After consent was obtained, the patient was placed in the left lateral decubitus position. The fujinon endoscope was inserted into the patient 's mouth under direct vision, and advanced to the 2nd portion of duodenum without difficulty. The patient tolerated the procedure well. The views of the mucosa were good. Patient's vital signs were monitored continuously throughout the procedure. Findings: The esophagus appeared normal. The stomach appeared normal. There was mild erythematous mucosa in the duodenal bulb, otherwise the duodenum appeared normal. Biopsies were obtained. Impression: 1. Mild duodenitis (biopsies obtained). Otherwise, unremarkable endoscopy. Recommendations: -follow-up pathology -colonoscopy to follow
--- NOTE | 2017-09-17 14:35 | Operative Report ---
Operative Report Operative Report: Colonoscopy Procedure Note Date of procedure: 09/17/2017 Endoscopist: Satnam Saldivar Pre-op diagnosis: Iron deficiency anemia Post-op diagnosis: Diverticulosis, otherwise no significant findings Anesthesia: MAC Complications: No immediate complications Estimated blood loss: none Procedure: After consent was obtained, the patient was placed in the left lateral decubitus position. The fujinon colonoscope was inserted into the patient's rectum under direct vision, and advanced to the cecum without difficulty. The patient tolerated the procedure well. The views of the mucosa were fair. The quality of prep was fair. The patient's vital signs were monitored continuously throughout the procedure. Findings: There were a few scattered diveticula in the colon, otherwise the colon appeared normal. No obvious source of patient's anemia was identified during the procedure. Impression: 1. Diverticulosis, otherwise no significant findings. Recommendations: -High fiber diet daily -check iron studies -follow-up in GI clinic in 1-2 months -if iron deficient, consider pill cam Will sign off, please call as needed or with questions.
[2017-09-18 08:07] VITALS: BP 144/55
[2017-09-18] MEDS: HumuLIN R SUB-Q SCH ×3 (08:16→12:03)
[2017-09-18] MEDS: LEVAQUIN PO SCH (09:09)
[2017-09-18] MEDS: SODIUM CHLORIDE FLUSH SYRINGE 10 ML IV SCH (09:10)
[2017-09-18] MEDS ORDERED: PROTONIX PO SCH (10:00)
--- NOTE | 2017-09-18 11:14 | Discharge Summary ---
Providers - Providers Date of Admission: 09/10/17 18:54 Date of discharge: 09/18/17 Attending physician: ANTHONY DIAZ 09/11/17 07:50 Consult to Physician [CONS] Routine Comment: Consulting Provider: BRYANNA ESCAMILLA Physician Instructions: Reason For Exam: NICKIE 09/11/17 11:34 Consult to Physician [CONS] Routine Comment: Consulting Provider: USHA MEJIA Physician Instructions: Reason For Exam: Sepsis/Gm neg bacteremia 09/12/17 18:28 Consult to Physician [CONS] Routine Comment: Consulting Provider: MARISELA CHIRINOS Physician Instructions: Reason For Exam: Heme positive stool/anemia Primary care physician: ALVIN ALARCON Hospitalization Condition: Serious Hospital course: --GI bleeding/heme-positive stool, anemia Due to poor colon preparation for endoscopy rescheduled for today avoid NSAIDs, anticoagulants --Mild hyponatremia; resolved --anemia with heme positive stool Status post blood transfusion, hemoglobin today is 8.5- 9.7 --Gram-negative sepsis/the gram-negative bacteremia; Klebsiella Received aztreonam, changed to Levaquin, contact isolation, ID following --Sepsis secondary to urinary tract infection; present on admission --Diabetic ketoacidosis; resolved --Type 2 diabetes mellitus; moderate control continue Accu-Chek sliding scale coverage and ADA diet and increase 7030 insulin to 10 units twice a day ,A1c 10 --Leukocytosis; secondary to sepsis due UTI, trending down --Elevated BNP more than 4000; LVEF 60% Probably diastolic dysfunction --Acute kidney injury; vasomotor nephropathy, resolved Disposition: [id number]/TX-06 HOME [facility] Time spent for discharge: 34 min Core Measure Documentation - Palliative Care Palliative Care/ Comfort Measures: Not Applicable - Core Measures Any of the following diagnoses?: none Exam - Constitutional Vitals: Temp Pulse Resp BP Pulse Ox 98.0 F 79 18 144/55 98 09/18/17 07:45 09/18/17 10:00 09/18/17 10:00 09/18/17 07:45 09/18/17 10:00 General appearance: Present: no acute distress, well-nourished - EENT Eyes: Present: PERRL, EOM intact - Neck Neck: Present: supple, normal ROM - Respiratory Respiratory effort: normal Respiratory: negative: rales, rhonchi, wheezing - Cardiovascular Rhythm: regular Heart Sounds: Present: S1 & S2 - Extremities Extremities: no ischemia, No edema - Abdominal General gastrointestinal: Present: soft, non-tender, non-distended, normal bowel sounds - Integumentary Integumentary: Present: clear, warm - Musculoskeletal Musculoskeletal: strength equal bilaterally - Psychiatric Psychiatric: appropriate mood/affect, cooperative - Neurologic Neurologic: CNII-XII intact, moves all extremities Plan Activity: advance as tolerated Diet: diabetic Additional Instructions: See private machine overhauler as needed. Avoid NSAID group of pain medications Follow up with: ALVIN ALARCON MD [Primary Care Provider] - 3-5 Days GENEVIEVE ARENAS MD [Staff Physician] - 7 Days USHA MEJIA MD [Staff Physician] - 7 Days BENNY SPARKS MD [Staff Physician] - 7 Days Prescriptions: Insulin NPH/Regular [Novolin 70/30] 25 unit SUB-Q BID 30 Days units Levofloxacin [Levaquin] 750 mg PO QDAY #8 tablet Pantoprazole [Protonix TAB] 40 mg PO DAILY #30 tablet Zolpidem [Ambien] 5 mg PO QHS PRN #5 tablet PRN Reason: Sleep
== END 2017-09-18 13:35 | disposition home or self-care (01) | DRG 871 ==
LOC: ED 15:21 → CC1 18:54 → 2B-ACE 09-11 16:00
PROVIDERS: ADMIT Internal Medicine; ATTEND Internal Medicine
PROC: 0DJD8ZZ Inspection of Lower Intestinal Tract, Via Natural or Artificial Opening Endoscopic (ICD-10-PCS; principal; 2017-09-17)
PROC: 0DB98ZX Excision of Duodenum, Via Natural or Artificial Opening Endoscopic, Diagnostic (ICD-10-PCS; 2017-09-17)
PROC: 30233N1 Transfusion of Nonautologous Red Blood Cells into Peripheral Vein, Percutaneous Approach (ICD-10-PCS; 2017-09-17)
DX: A41.59 Other Gram-negative sepsis (principal); E11.10 Type 2 diabetes mellitus with ketoacidosis without coma; N17.0 Acute kidney failure with tubular necrosis; I50.31 Acute diastolic (congestive) heart failure; E87.1 Hypo-osmolality and hyponatremia; N39.0 Urinary tract infection, site not specified; R65.20 Severe sepsis without septic shock; J44.9 Chronic obstructive pulmonary disease, unspecified; F17.200 Nicotine dependence, unspecified, uncomplicated; E87.6 Hypokalemia; D64.9 Anemia, unspecified; E83.39 Other disorders of phosphorus metabolism; E83.42 Hypomagnesemia; B96.1 Klebsiella pneumoniae [K. pneumoniae] as the cause of diseases classified elsewhere; K29.80 Duodenitis without bleeding; D50.9 Iron deficiency anemia, unspecified; K57.90 Diverticulosis of intestine, part unspecified, without perforation or abscess without bleeding; Z90.49 Acquired absence of other specified parts of digestive tract; Z89.421 Acquired absence of other right toe(s); Z88.0 Allergy status to penicillin
CPT/HCPCS: 36415; 71045; 71046; 76770; 80048; 80053; 81001; 82043; 82140; 82270; 82570; 82805; 82962; 83036; 83735; 83880; 84100; 84156; 84300; 85007; 85014; 85018; 85025; 85610; 86850; 86900; 86901; 86920; 87040; 87076; 87086; 87186; 88305; 93005; 93010; 93306; 96361; 96374; 96375; C9113; J0360; J1644; J1815; J1956; J2405; J2704; J3370; J3475; J3480; J7030; J7040; J7050; P9016

== ENCOUNTER 2017-11-21 13:05 | Outpatient (CLI) | payer MEDICARE ==
[2017-11-21] MEDS ORDERED: XYLOCAINE TOPICAL 4% TP ONE (13:37)
[2017-11-21] MEDS ORDERED: NACL 0.9% IR ONE (13:37)
== END 2017-11-21 13:06 | disposition home or self-care (01) ==
LOC: WOUND 13:05
PROVIDERS: ATTEND Surgery
DX: E11.622 Type 2 diabetes mellitus with other skin ulcer (principal); L98.411 Non-pressure chronic ulcer of buttock limited to breakdown of skin; I10 Essential (primary) hypertension; Z89.411 Acquired absence of right great toe; Z87.891 Personal history of nicotine dependence
CPT/HCPCS: 11042; G0463

== ENCOUNTER 2017-11-27 12:53 | Outpatient (CLI) | payer MEDICARE ==
[2017-11-27] MEDS ORDERED: XYLOCAINE TOPICAL 4% TP ONE ×2 (13:13→13:21)
== END 2017-11-27 12:54 | disposition home or self-care (01) ==
LOC: WOUND 12:53
PROVIDERS: ATTEND Surgery
DX: L02.31 Cutaneous abscess of buttock (principal); E11.9 Type 2 diabetes mellitus without complications; I10 Essential (primary) hypertension; Z89.411 Acquired absence of right great toe; Z87.891 Personal history of nicotine dependence
CPT/HCPCS: 99214; G0463

== ENCOUNTER 2017-12-04 12:59 | Outpatient (CLI) | payer MEDICARE ==
[2017-12-04] MEDS ORDERED: XYLOCAINE TOPICAL 4% TP ONE ×2 (13:03→13:17)
== END 2017-12-04 13:00 | disposition home or self-care (01) ==
LOC: WOUND 12:59
PROVIDERS: ATTEND Surgery
DX: L02.31 Cutaneous abscess of buttock (principal); E11.9 Type 2 diabetes mellitus without complications; I10 Essential (primary) hypertension; Z89.411 Acquired absence of right great toe; Z87.891 Personal history of nicotine dependence

== ENCOUNTER 2017-12-11 12:52 | Outpatient (CLI) | payer MEDICARE ==
[2017-12-11] MEDS ORDERED: XYLOCAINE TOPICAL 4% TP ONE ×2 (13:25→13:46)
== END 2017-12-11 12:53 | disposition home or self-care (01) ==
LOC: WOUND 12:52
PROVIDERS: ATTEND Surgery
DX: L02.31 Cutaneous abscess of buttock (principal); E11.9 Type 2 diabetes mellitus without complications; I10 Essential (primary) hypertension; Z89.411 Acquired absence of right great toe; Z87.891 Personal history of nicotine dependence
CPT/HCPCS: 99214; G0463

== ENCOUNTER 2017-12-18 12:58 | Outpatient (CLI) | payer MEDICARE ==
[2017-12-18] MEDS ORDERED: XYLOCAINE TOPICAL 4% TP ONE ×2 (13:16→13:41)
== END 2017-12-18 12:59 | disposition home or self-care (01) ==
LOC: WOUND 12:58
PROVIDERS: ATTEND Surgery
DX: L02.31 Cutaneous abscess of buttock (principal); E11.9 Type 2 diabetes mellitus without complications; I10 Essential (primary) hypertension; Z89.411 Acquired absence of right great toe; Z87.891 Personal history of nicotine dependence
CPT/HCPCS: 99214; G0463

== ENCOUNTER → 2018-01-01 | Outpatient (CLI) | payer MEDICARE ==
[~2018-01-01] MED LIST: XYLOCAINE TOPICAL 2% 5ML ONE; XYLOCAINE TOPICAL 2% 5ML TP ONE
== END | disposition home or self-care (01) ==
LOC: WOUND 08:55
PROVIDERS: ATTEND Surgery
DX: L02.31 Cutaneous abscess of buttock (principal); E11.9 Type 2 diabetes mellitus without complications; I10 Essential (primary) hypertension; Z89.411 Acquired absence of right great toe; Z87.891 Personal history of nicotine dependence

== ENCOUNTER 2018-01-08 12:46 | Outpatient (CLI) | payer MEDICARE | END 2018-01-08 12:47 | disposition home or self-care (01) | LOC: WOUND 12:46 | PROVIDERS: ATTEND Surgery | DX: L02.31 Cutaneous abscess of buttock (principal); E11.9 Type 2 diabetes mellitus without complications; I10 Essential (primary) hypertension; Z89.411 Acquired absence of right great toe; Z87.891 Personal history of nicotine dependence | CPT/HCPCS: 99213; G0463 ==

== ENCOUNTER 2018-06-02 20:24 | Inpatient (IN) | payer MEDICARE ==
[2018-06-02 21:13] LABS: Basophils # (Auto) 0.1 K/mm3 (0.0-0.1); Basophils % (Auto) 0.4 % (0.0-1.8); Eosinophils % (Auto) 0.1 % (0.0-4.3); Hematocrit 31.7 % (30.3-42.9); Hemoglobin 10.3 gm/dl (10.1-14.3); Lymphocytes # (Auto) 0.7 K/mm3 (1.2-5.4); Mean Corpuscular HGB Conc 32 % (30-34); Mean Corpuscular Volume 88 fl (79-97); Monocytes % (Auto) 5.6 % (0.0-7.3); Platelet Count 447 K/mm3 (140-440); Red Cell Distribution Width 13.5 % (13.2-15.2)
[2018-06-02 21:31] LABS: Calcium 8.7 mg/dL (8.4-10.2)
[2018-06-02] MEDS ORDERED: LEVAQUIN 500MG/100ML 500 MG/100 ML BAG IV ONE (22:34)
[2018-06-02] MEDS ORDERED: HumuLIN R IV ONE (22:34)
[2018-06-02] MEDS ORDERED: ZOFRAN IV ONE (22:34)
[2018-06-02] MEDS ORDERED: TYLENOL PO ONE (22:34)
[2018-06-02] MEDS ORDERED: NACL 0.9% 1000 ML 1,000 ML IV ONE (22:35)
[2018-06-02] MEDS ORDERED: NACL 0.9% 1000 ML 2,000 ML IV ONE (22:35)
--- NOTE | 2018-06-02 22:37 | Emergency Department Report ---
ED General Adult HPI - General Chief complaint: Hyperglycemia Stated complaint: HIGH BLOOD GLUCOSE Time Seen by Provider: 06/02/18 22:24 Source: patient Mode of arrival: Wheelchair Limitations: No Limitations - History of Present Illness Initial comments: This is a 72-year-old female. Primary care doctor is Dr. Uday Palomino. Nephrology: Dr. Mtz Past medical history: COPD, not on home oxygen, renal insufficiency, anemia, diabetes Patient presents to the ER with a complaint of abdominal pain, nausea vomiting, "I think I have a bowel obstruction." Positive fevers, positive malaise, positive fatigue. No urinary symptoms. Symptoms constant for 1 day, worsening with a temperature eat or drink, decreased with rest. Abdominal discomfort "all over", increases with palpation, decreases with rest. -: Gradual Location: abdomen Radiation: non-radiation Quality: aching Consistency: other Improves with: other Worsens with: other Associated Symptoms: fever/chills, loss of appetite, malaise, nausea/vomiting, shortness of breath (chronic shortness of breath), weakness. denies: confusion, chest pain, cough, diaphoresis, headaches, rash, seizure, syncope - Related Data Home Medications Medication Instructions Recorded Confirmed Last Taken Lispro Insulin [Humalog] See Protocol SQ ACHS 09/13/17 06/03/18 Unknown Previous Rx's Medication Instructions Recorded Last Taken Type Insulin NPH/Regular [NovoLIN 70/30] 25 unit SUB-Q BID 30 Days units 09/18/17 Unknown Rx Zolpidem [Ambien] 5 mg PO QHS PRN #5 tablet 09/18/17 Unknown Rx oxyCODONE /ACETAMINOPHEN [Percocet 1 tab PO Q6H PRN #14 tablet 11/14/17 Unknown Rx 5/325 mg] Allergies Allergy/AdvReac Type Severity Reaction Status Date / Time Penicillins Allergy Unknown Verified 11/16/15 13:37 ED Review of Systems ROS: Stated complaint: HIGH BLOOD GLUCOSE Other details as noted in HPI Constitutional: fever, malaise. denies: weakness Eyes: denies: vision change ENT: denies: epistaxis Respiratory: shortness of breath (chronic). denies: cough Cardiovascular: denies: chest pain Gastrointestinal: abdominal pain, nausea, vomiting Genitourinary: denies: urgency, dysuria, frequency Musculoskeletal: arthralgia, myalgia Skin: denies: lesions Neurological: weakness Psychiatric: denies: anxiety ED Past Medical Hx - Past Medical History Hx Hypertension: Yes Hx Congestive Heart Failure: Yes Hx Diabetes: Yes Hx Renal Disease: Yes Hx COPD: Yes - Surgical History Hx Cholecystectomy: Yes Additional Surgical History: right great toe amputation. half index toe right foot amputation - Social History Smoking Status: Current Some Day Smoker Substance Use Type: Alcohol - Medications Home Medications: Home Medications Medication Instructions Recorded Confirmed Last Taken Type Lispro Insulin [Humalog] See Protocol SQ ACHS 09/13/17 06/03/18 Unknown History Insulin NPH/Regular [NovoLIN 70/30] 25 unit SUB-Q BID 30 Days units 09/18/17 06/03/18 Unknown Rx Zolpidem [Ambien] 5 mg PO QHS PRN #5 tablet 09/18/17 06/03/18 Unknown Rx oxyCODONE /ACETAMINOPHEN [Percocet 1 tab PO Q6H PRN #14 tablet 11/14/17 06/03/18 Unknown Rx 5/325 mg] ED Physical Exam - General Limitations: No Limitations General appearance: alert, anxious, in distress - Head Head exam: Present: atraumatic, normocephalic - Eye Eye exam: Present: normal appearance, EOMI. Absent: nystagmus - ENT ENT exam: Present: normal exam, normal orophraynx, mucous membranes moist, normal external ear exam - Neck Neck exam: Present: normal inspection, full ROM. Absent: tenderness, meningismus - Respiratory Respiratory exam: Present: normal lung sounds bilaterally. Absent: respiratory distress - Cardiovascular Cardiovascular Exam: Present: normal rhythm, tachycardia, normal heart sounds. Absent: systolic murmur, diastolic murmur, rubs, gallop - GI/Abdominal GI/Abdominal exam: Present: soft. Absent: distended, tenderness, guarding, rebound, rigid, pulsatile mass - Extremities Exam Extremities exam: Present: normal inspection, full ROM, other (2+ pulses noted in the bilateral upper, lower extremities. Compartments soft. No long bony tenderness. The pelvis is stable.). Absent: pedal edema, joint swelling, calf tenderness - Back Exam Back exam: Present: normal inspection, full ROM. Absent: tenderness, CVA tenderness (R), paraspinal tenderness, vertebral tenderness - Neurological Exam Neurological exam: Present: alert, oriented X3, other (Extraocular movements intact. Tongue midline. No facial droop. Facial sensation intact to light touch in the V1, V2, V3 distribution bilaterally. 5 and 5 strength in 4 extremities.. Sensation is intact to light touch in 4 extremities.). Absent: motor sensory deficit - Psychiatric Psychiatric exam: Present: normal affect, normal mood - Skin Skin exam: Present: warm, dry, intact, normal color. Absent: rash ED Course Vital Signs 06/02/18 06/02/18 06/02/18 20:35 20:47 22:35 Temperature 102.2 F H 98 F 99 F Pulse Rate 116 H 116 H 98 H Respiratory 18 18 21 Rate Blood Pressure 110/51 110/57 Blood Pressure 118/41 [Left] O2 Sat by Pulse 97 97 98 Oximetry 06/02/18 06/03/18 23:00 00:45 Temperature 98.3 F Pulse Rate 99 H Respiratory 17 Rate Blood Pressure 114/56 Blood Pressure [Left] O2 Sat by Pulse 99 Oximetry - Reevaluation(s) Reevaluation #1: 06/03/18 00:36 Differential diagnosis, including not limited to: Colitis, diverticulitis, perforated viscus, appendicitis, pneumonia, viral syndrome, bacteremia, urinary tract infection, small bowel structure Assessment and plan: 72-year-old female with fever, leukocytosis, tachycardia, abdominal pain, nausea and vomiting, without right lower quadrant tenderness, rebound or guarding. Clinically favor colitis over appendicitis. Please note that the patient was not brought to my attention immediately, and therefore did not receive antibiotics within the recommended three-hour window for systemic inflammatory response syndrome. Nevertheless, as soon as I evaluated the patient, systemic inflammatory response syndrome was recognized, and she was treated appropriately with appropriate antibiotics, IV fluids and blood cultures, lactic acid. We will obtain general surgery consult, and admitted to the medical service for further evaluation. Reevaluation #2: 06/03/18 00:42 Discussed with general surgery, Dr. Adam Coello, who agrees to follow in consultation. Hospital physician is paced to arrange admission. I discussed The CT findings with patient, who verbalized understanding and indicated that she was amenable to admission and hospitalization. Reevaluation #3: 06/03/18 00:43 Examined patient's gluteus and perennial region with WALI Weeks, no abscess breakdown or obvious infection noted Reevaluation #4: 06/03/18 00:59 Dr Presley accepts to the medical service ED Medical Decision Making - Lab Data Result diagrams: 06/02/18 20:59 06/02/18 20:59 Vital Signs 06/02/18 06/02/18 06/02/18 20:35 20:47 22:35 Temperature 102.2 F H 98 F 99 F Pulse Rate 116 H 116 H 98 H Respiratory 18 18 21 Rate Blood Pressure 110/51 110/57 Blood Pressure 118/41 [Left] O2 Sat by Pulse 97 97 98 Oximetry Lab Results 06/02/18 06/02/18 06/02/18 Range/Units 20:43 20:59 20:59 WBC 18.1 H (4.5-11.0) K/mm3 RBC 3.60 L (3.65-5.03) M/mm3 Hgb 10.3 (10.1-14.3) gm/dl Hct 31.7 (30.3-42.9) % MCV 88 (79-97) fl MCH 29 (28-32) pg MCHC 32 (30-34) % RDW 13.5 (13.2-15.2) % Plt Count 447 H (140-440) K/mm3 Lymph % (Auto) 4.0 L (13.4-35.0) % [place] % (Auto) 5.6 (0.0-7.3) % Eos % (Auto) 0.1 (0.0-4.3) % Baso % (Auto) 0.4 (0.0-1.8) % Lymph # 0.7 L (1.2-5.4) K/mm3 [place] # 1.0 H (0.0-0.8) K/mm3 Eos # 0.0 (0.0-0.4) K/mm3 Baso # 0.1 (0.0-0.1) K/mm3 Seg Neutrophils % 89.9 H (40.0-70.0) % Seg Neutrophils # 16.3 H (1.8-7.7) K/mm3 VBG pH (7.320-7.420) Sodium 130 L (137-145) mmol/L Potassium 4.6 (3.6-5.0) mmol/L Chloride 96.8 L (98-107) mmol/L Carbon Dioxide 15 L (22-30) mmol/L Anion Gap 23 mmol/L BUN 34 H (7-17) mg/dL Creatinine 1.9 H (0.7-1.2) mg/dL Estimated GFR 26 ml/min BUN/Creatinine Ratio 18 % Glucose 452 H (65-100) mg/dL POC Glucose 389 H (70-105) Lactic Acid (0.7-2.0) mmol/L Calcium 8.7 (8.4-10.2) mg/dL Magnesium (1.7-2.3) mg/dL Total Creatine Kinase (30-135) units/L Influenza A (Rapid) (Negative) Influenza B (Rapid) (Negative) 06/02/18 06/02/18 06/02/18 Range/Units 20:59 22:30 22:54 WBC (4.5-11.0) K/mm3 RBC (3.65-5.03) M/mm3 Hgb (10.1-14.3) gm/dl Hct (30.3-42.9) % MCV (79-97) fl MCH (28-32) pg MCHC (30-34) % RDW (13.2-15.2) % Plt Count (140-440) K/mm3 Lymph % (Auto) (13.4-35.0) % [place] % (Auto) (0.0-7.3) % Eos % (Auto) (0.0-4.3) % Baso % (Auto) (0.0-1.8) % Lymph # (1.2-5.4) K/mm3 [place] # (0.0-0.8) K/mm3 Eos # (0.0-0.4) K/mm3 Baso # (0.0-0.1) K/mm3 Seg Neutrophils % (40.0-70.0) % Seg Neutrophils # (1.8-7.7) K/mm3 VBG pH 7.356 (7.320-7.420) Sodium (137-145) mmol/L Potassium (3.6-5.0) mmol/L Chloride (98-107) mmol/L Carbon Dioxide (22-30) mmol/L Anion Gap mmol/L BUN (7-17) mg/dL Creatinine (0.7-1.2) mg/dL Estimated GFR ml/min BUN/Creatinine Ratio % Glucose (65-100) mg/dL POC Glucose 427 H (70-105) Lactic Acid 0.90 (0.7-2.0) mmol/L Calcium (8.4-10.2) mg/dL Magnesium (1.7-2.3) mg/dL Total Creatine Kinase (30-135) units/L Influenza A (Rapid) (Negative) Influenza B (Rapid) (Negative) 06/02/18 06/02/18 Range/Units 22:54 23:20 WBC (4.5-11.0) K/mm3 RBC (3.65-5.03) M/mm3 Hgb (10.1-14.3) gm/dl Hct (30.3-42.9) % MCV (79-97) fl MCH (28-32) pg MCHC (30-34) % RDW (13.2-15.2) % Plt Count (140-440) K/mm3 Lymph % (Auto) (13.4-35.0) % [place] % (Auto) (0.0-7.3) % Eos % (Auto) (0.0-4.3) % Baso % (Auto) (0.0-1.8) % Lymph # (1.2-5.4) K/mm3 [place] # (0.0-0.8) K/mm3 Eos # (0.0-0.4) K/mm3 Baso # (0.0-0.1) K/mm3 Seg Neutrophils % (40.0-70.0) % Seg Neutrophils # (1.8-7.7) K/mm3 VBG pH (7.320-7.420) Sodium (137-145) mmol/L Potassium (3.6-5.0) mmol/L Chloride (98-107) mmol/L Carbon Dioxide (22-30) mmol/L Anion Gap mmol/L BUN (7-17) mg/dL Creatinine (0.7-1.2) mg/dL Estimated GFR ml/min BUN/Creatinine Ratio % Glucose (65-100) mg/dL POC Glucose (70-105) Lactic Acid (0.7-2.0) mmol/L Calcium (8.4-10.2) mg/dL Magnesium 1.70 (1.7-2.3) mg/dL Total Creatine Kinase 39 (30-135) units/L Influenza A (Rapid) Negative (Negative) Influenza B (Rapid) Negative (Negative) - EKG Data -: EKG Interpreted by Ok EKG shows normal: sinus rhythm - EKG Data 06/03/18 00:42 Sinus, 99 bpm, borderline rightward axis, right bundle branch block, QTC prolonged, motion artifact, low voltage, abnormal EKG, not morphologically consistent with ST elevation myocardial infarction. - Radiology Data Radiology results: report reviewed, image reviewed FINDINGS: Mild linear atelectasis or scarring at the lung bases. Tiny hiatal hernia. Gallbladder surgically absent. Liver, spleen, pancreas are grossly unremarkable. Left adrenal nodule measuring 1.8 x 1.8 centimeters. Internal Hounsfield units-8 compatible with benign adenoma. Nodular thickening of the right adrenal gland. Nonobstructive calculus mid right renal pelvis measuring 9 x 6 millimeters. No additional renal or ureteral calculi. No hydronephrosis. Bilateral perinephric fat stranding similar prior study compatible sequelae of prior inflammation. Aorta and IVC normal in caliber. Moderate severe calcified plaque along the aorta. Urinary bladder, uterus, ovaries are grossly unremarkable. There is fluid-like stool within the cecum and proximal ascending colon. Mild wall thickening of the colon that region concerning for segmental colitis. There is mild dilatation appendix measuring up to 8 millimeters. Mild haziness adjacent fat (series 2, image 131). Lumbar vertebral body heights preserved. [id number] degenerative changes of the lumbar spine. Bony pelvis is grossly intact. IMPRESSION: Findings concerning for mild colitis involving the cecum and ascending colon. There is mild dilatation of fat stranding along the appendix concerning for secondary to inflammation of the appendix related to adjacent colitis. Mild primary inflammation of the appendix with reactive colitis is less likely. No free air or abscess. No bowel obstruction. Stable nonobstructive right renal calculus. No hydronephrosis bilaterally. Stable left left adrenal adenoma. Transcribed By: LMA Dictated By: TROY VELASQUEZ MD Electronically Authenticated By: TROY VELASQUEZ MD Signed Date/Time: 06/03/18 0029 X-ray of the chest is negative for acute disease Critical care attestation.: If time is entered above; I have spent that time in minutes in the direct care of this critically ill patient, excluding procedure time. ED Disposition Clinical Impression: Sepsis, Hyperglycemia, Dehydration, Enterocolitis Disposition: -09 OP ADMIT IP TO THIS HOSP Is pt being admited?: Yes Condition: Fair Referrals: PRIMARY CARE,MD [Primary Care Provider] - 3-5 Days
--- NOTE | 2018-06-03 00:11 | XRay Report ---
FINAL REPORT EXAM: XR CHEST 1V AP HISTORY: cough fever srs COMPARISON: October 2017. FINDINGS: Frontal view(s) of the chest obtained. Cardiac silhouette within normal limits. No gross consolidatio n or effusion. No pneumothorax. IMPRESSION: No grossly acute findings.
--- NOTE | 2018-06-03 00:29 | Cat Scan Report ---
FINAL REPORT EXAM: CT ABDOMEN PELVIS WO CON HISTORY: abd pain sepsis COMPARISON: CT abdomen pelvis October 2017. TECHNIQUE: Contiguous axial images were obtained. Additional sagittal and coronal reformatted images were obtained. FINDINGS: Mild linear atelectasis or scarring at the lung bases. Tiny hiatal hernia. Gallbladder surgically abs ent. Liver, spleen, pancreas are grossly unremarkable. Left adrenal nodule measuring 1.8 x 1.8 centim eters. Internal Hounsfield units-8 compatible with benign adenoma. Nodular thickening of the right ad renal gland. Nonobstructive calculus mid right renal pelvis measuring 9 x 6 millimeters. No additional renal or ur eteral calculi. No hydronephrosis. Bilateral perinephric fat stranding similar prior study compatible sequelae of prior inflammation. Aorta and IVC normal in caliber. Moderate severe calcified plaque al flip the aorta. Urinary bladder, uterus, ovaries are grossly unremarkable. There is fluid-like stool within the cecum and proximal ascending colon. Mild wall thickening of the colon that region concerning for segmental colitis. There is mild dilatation appendix measuring up to 8 millimeters. Mild haziness adjacent fat (series 2, image 131). Lumbar vertebral body heights preserved. [id number] degenerative changes of the lumbar spine. B xavier pelvis is grossly intact. IMPRESSION: Findings concerning for mild colitis involving the cecum and ascending colon. There is mild dilatatio n of fat stranding along the appendix concerning for secondary to inflammation of the appendix relate d to adjacent colitis. Mild primary inflammation of the appendix with reactive colitis is less likely . No free air or abscess. No bowel obstruction. Stable nonobstructive right renal calculus. No hydronephrosis bilaterally. Stable left left adrenal adenoma.
[2018-06-03] MEDS ORDERED: FLAGYL 500 MG/100 ML 500 MG/100 ML BAG IV ONE (00:31)
[2018-06-03] MEDS ORDERED: SUBLIMAZE IV ONE (00:42)
[2018-06-03] MEDS ORDERED: D50W (25GM) Syringe IV PRN (02:37)
[2018-06-03] MEDS ORDERED: TYLENOL PR PRN (02:40)
[2018-06-03] MEDS ORDERED: ZOFRAN IV PRN (02:43)
[2018-06-03] MEDS ORDERED: NACL 0.9% 1000 ML 1,000 ML ONE (03:32)
[2018-06-03] MEDS ORDERED: HumuLIN R ONE (03:33)
[2018-06-03] MEDS: HumuLIN R SUB-Q SCH ×5 (03:35→23:02)
[2018-06-03] MEDS: NACL 0.9% 1000 ML 1,000 ML IV SCH ×2 (03:36→05:52)
[2018-06-03] MEDS: FLAGYL 500 MG/100 ML 500 MG/100 ML BAG IV SCH ×3 (05:50→21:32)
--- NOTE | 2018-06-03 07:51 | Progress Note ---
Assessment and Plan Full consult dictated 72 y/o female c/o N&V as well as constipation. (last BM 48 hrs ago) minimal abd pain - "feeling better" CT abd - r/o ascending colitis. Abd soft, non tender at present. wbc 18.1 surgically stable keep npo except for ice chips and po meds. monitor clinically will follow. This is a 72-year-old female. Primary care doctor is Dr. Uday Palomino. Nephrology: Dr. Mtz Past medical history: COPD, not on home oxygen, renal insufficiency, anemia, diabetes Patient presents to the ER with a complaint of abdominal pain, nausea vomiting, "I think I have a bowel obstruction." Positive fevers, positive malaise, positive fatigue. No urinary symptoms. Symptoms constant for 1 day, worsening with a temperature eat or drink, decreased with rest. Abdominal discomfort "all over", increases with palpation, decreases with rest. -: Gradual Location: abdomen Radiation: non-radiation Quality: aching Consistency: other Improves with: other Worsens with: other Associated Symptoms: fever/chills, loss of appetite, malaise, nausea/vomiting, shortness of breath (chronic shortness of breath), weakness. denies: confusion, chest pain, cough, diaphoresis, headaches, rash, seizure, syncope Selected Entries 06/03/18 06/03/18 04:10 04:30 Temperature 97.4 F L Pulse Rate 99 H Respiratory 20 Rate Blood Pressure 115/30 Laboratory Tests 06/02/18 06/02/18 20:59 20:59 WBC 18.1 H Hgb 10.3 Hct 31.7 Sodium 130 L Potassium 4.6 Chloride 96.8 L Carbon Dioxide 15 L BUN 34 H Creatinine 1.9 H Glucose 452 H Objective Vital Signs - 12hr 06/02/18 06/02/18 06/02/18 20:35 20:47 22:35 Temperature 102.2 F H 98 F 99 F Pulse Rate 116 H 116 H 98 H Pulse Rate [ Apical] Respiratory 18 18 21 Rate Blood Pressure 110/51 110/57 Blood Pressure 118/41 [Left] O2 Sat by Pulse 97 97 98 Oximetry 06/02/18 06/03/18 06/03/18 23:00 00:45 01:00 Temperature 98.3 F Pulse Rate 99 H 87 Pulse Rate [ Apical] Respiratory 17 20 Rate Blood Pressure 114/56 99/42 Blood Pressure [Left] O2 Sat by Pulse 99 97 Oximetry 06/03/18 06/03/18 06/03/18 02:00 03:00 03:20 Temperature Pulse Rate 85 88 91 H Pulse Rate [ Apical] Respiratory 16 18 15 Rate Blood Pressure 95/41 102/44 102/44 Blood Pressure [Left] O2 Sat by Pulse 99 99 100 Oximetry 06/03/18 06/03/18 06/03/18 03:30 03:40 04:10 Temperature 97.4 F L Pulse Rate 92 H 94 H Pulse Rate [ Apical] Respiratory 11 L 12 20 Rate Blood Pressure 102/44 102/44 115/30 Blood Pressure [Left] O2 Sat by Pulse 100 100 Oximetry 06/03/18 06/03/18 04:24 04:30 Temperature Pulse Rate 99 H Pulse Rate [ 98 H Apical] Respiratory 20 Rate Blood Pressure Blood Pressure [Left] O2 Sat by Pulse 97 Oximetry - Labs 06/02/18 20:59 06/02/18 20:59 Diabetes panel 06/02/18 Range/Units 20:59 Sodium 130 L (137-145) mmol/L Potassium 4.6 (3.6-5.0) mmol/L Chloride 96.8 L (98-107) mmol/L Carbon Dioxide 15 L (22-30) mmol/L BUN 34 H (7-17) mg/dL Creatinine 1.9 H (0.7-1.2) mg/dL Glucose 452 H (65-100) mg/dL Calcium 8.7 (8.4-10.2) mg/dL Calcium panel 06/02/18 Range/Units 20:59 Calcium 8.7 (8.4-10.2) mg/dL Pituitary panel 06/02/18 Range/Units 20:59 Sodium 130 L (137-145) mmol/L Potassium 4.6 (3.6-5.0) mmol/L Chloride 96.8 L (98-107) mmol/L Carbon Dioxide 15 L (22-30) mmol/L BUN 34 H (7-17) mg/dL Creatinine 1.9 H (0.7-1.2) mg/dL Glucose 452 H (65-100) mg/dL Calcium 8.7 (8.4-10.2) mg/dL Adrenal panel 06/02/18 Range/Units 20:59 Sodium 130 L (137-145) mmol/L Potassium 4.6 (3.6-5.0) mmol/L Chloride 96.8 L (98-107) mmol/L Carbon Dioxide 15 L (22-30) mmol/L BUN 34 H (7-17) mg/dL Creatinine 1.9 H (0.7-1.2) mg/dL Glucose 452 H (65-100) mg/dL Calcium 8.7 (8.4-10.2) mg/dL
--- NOTE | 2018-06-03 08:02 | History and Physical Report ---
CHIEF COMPLAINT: High blood glucose level. OTHER COMPLAINT: Includes abdominal pain, nausea and vomiting. HISTORY OF PRESENT ILLNESS: The patient is a 72-year-old female who says she has been having abdominal pain going on for some hours. Also, the patient noted the blood sugar to be high and came to the Emergency Room complaining of abdominal pain, nausea and vomiting and says that she thinks she is obstructed. There is history of weakness, history of malaise and fever. The patient denies history of chest pain and denies history of shortness of breath and presented for evaluation. PAST MEDICAL HISTORY: Pertinent for hypertension, congestive heart failure, diabetes mellitus, renal insufficiency, COPD. PAST SURGICAL HISTORY: Pertinent for cholecystectomy, right big toe amputation ____ right foot amputation. FAMILY HISTORY: Family history is noncontributory. SOCIAL HISTORY: The patient smokes cigarettes, drinks alcohol and does not use illicit drugs. MEDICATIONS: The patient is on lispro insulin according to sliding scale protocol. Also, the patient is on Novolin 70/30 insulin, 25 units subQ twice daily and Ambien 5 mg at bedtime. The patient is also on Percocet 5/325 one by mouth every 6 hours. ALLERGIES: THE PATIENT IS ALLERGIC TO PENICILLIN. REVIEW OF SYSTEMS: CONSTITUTIONAL: There is fever, there is chills, but no diaphoresis. HEENT: There is no headache or sore throat. CARDIOVASCULAR SYSTEM: There is no chest pain or orthopnea. RESPIRATORY SYSTEM: There is no shortness of breath or cough. GASTROINTESTINAL SYSTEM: Abdominal pain is present. Nausea and vomiting present. MUSCULOSKELETAL: There is no joint pain or swelling. DERMATOLOGICAL SYSTEM: There is no skin rash or itching. GENITOURINARY SYSTEM: There is no dysuria, hematuria or flank pain. Rest of system review is normal. PHYSICAL EXAMINATION: GENERAL: At the time of exam, the patient was found to be alert, oriented x 3 and not in acute disease. VITAL SIGNS: Shows temperature of 102.2 degrees Fahrenheit, pulse of 116, respiration 18, blood pressure 110/51, and O2 sat of 97% on room air. HEENT: Showed pupils to be equal, round, and reactive to light and accommodating. Extraocular muscles are intact. NECK: Neck is supple with no JVD or carotid bruit. CARDIOVASCULAR SYSTEM: Showed normal first and second heart sounds with no gallops or murmur. RESPIRATORY SYSTEM: Show good air entry on both sides of the lungs with no abnormal breath sounds. GASTROINTESTINAL SYSTEM: Show abdomen to be full, soft with tenderness in both left lower quadrant and right lower quadrant with no guarding or rigidity. Bowel sound is normal. NEUROLOGIC: Neuro exam shows no focal deficit. MUSCULOKELETAL SYSTEM: Show no joint swelling or tenderness. DERMATOLOGICAL SYSTEM: Show no skin rash. GENITOURINARY SYSTEM: Showing no costovertebral angle tenderness. PERTINENT LABORATORY AND IMAGING STUDIES: The patient had CBC done with elevated white count of 18,100, normal hemoglobin and normal hematocrit with CBC differential showing elevated segmented neutrophil of 89.9% and the patient's chemistry showed low sodium level of 130 with low chloride of 96.8 and elevated BUN of 34 with elevated creatinine of 1.9. The patient's blood glucose level is high with a value of 452 and patient's serology test for influenza A and B were negative and lactic acid level were normal. Imaging studies; the patient had a CT of the abdomen and pelvis done that shows colitis involving the cecum and ascending colon. Also, the patient had chest x-ray done that shows no grossly acute finding. DIAGNOSES: 1. Colitis. 2. Diabetes mellitus. PLAN OF ACTION: 1. The patient will be admitted to medical/surgical lea. 2. The patient will be on Accu-Chek q. 4 hours followed by low-dose sliding scale using regular insulin coverage. 3. The patient will continue surgical consult with Juan Hankins requested by the Emergency Room physician. 4. The patient will be n.p.o. for possible intervention by the surgeon. 5. The patient will be on IV Levaquin 750 mg daily and IV metronidazole 500 mg q. 8 hours. 6. The patient will be on IV normal saline at 75 mL an hour. 7. The patient will be on IV Zofran 4 mg every 8 hours as needed for nausea and vomiting and will be on IV morphine 2 mg q. 3 hours as needed for pain. 8. The patient's DVT prophylaxis will be through sequential compression device. JOB# [id number] OCN/NTS
[2018-06-03] MEDS: LEVAQUIN 750MG/150ML 750 MG/150 ML BAG IV SCH (11:10)
--- NOTE | 2018-06-03 16:34 | Progress Note ---
Assessment and Plan Assessment and plan: Patient is a 72 yo woman with a history of COPD, CKD 3, AOCD, hypertension, IDDM and prior right foot amputation due to PAD who presents with abd pains. She thinks she is obstructed * CT abd/pelvis wo contrast IMPRESSION: Findings concerning for mild colitis involving the cecum and ascending colon. There is mild dilatation of fat stranding along the appendix concerning for secondary to inflammation of the appendix related to adjacent colitis. Mild primary inflammation of the appendix with reactive colitis is less likely. No free air or abscess. No bowel obstruction. Stable nonobstructive right renal calculus. No hydronephrosis bilaterally. Stable left left adrenal adenoma. -Bacterial colitis: bowel rest, iv abx, ivf -?Appendicitis: Gen. Surgery is following, -Sepsis due to above, poa: follow culture, follow wbc and treat with abx -DM type 2 on insulin uncontrolled hyperglycemia: ssi, ada diet, accuchecks prolonged inpatient services: 35 minutes History Interval history: Patient was seen and examined. Follow-up on current diagnosis of n/v, abd pains and constipation. Overnight uneventful. Patient denies any chest pain, shortness breath, or severe headaches. Imaging, nursing note, chart, labs and old chart reviewed. Discussed with patient. Hospitalist Physical - Physical exam Narrative exam: Gen: WDWN, NAD, Awake, Alert, Orientated HEENT: NCAT, EOMI, PERRL, OP Clear Neck: supple, no adenopathy, no thyromegaly, no JVD CVS/Heart: RRR, normal S1S2, pulses present bilaterally Chest/Lungs: CTA B, Symmetrical chest expansion, good air entry bilaterally GI/Abdomen: soft, right sided tenderness good bowel sounds, no guarding or rebound /Bladder: no suprapubic tenderness, no CVA or paraspinal tenderness Extermity/Skin: no c/c/e, no obvious rash MSK: FROM x 4 Neuro: CN 2-12 grossly intact, no new focal deficits Psych: calm - Constitutional Vitals: Temp Pulse Resp BP Pulse Ox 99.8 F H 101 H 20 120/53 98 06/03/18 14:37 06/03/18 14:37 06/03/18 14:37 06/03/18 14:37 06/03/18 14:37 Results - Labs CBC & Chem 7: 06/02/18 20:59 06/02/18 20:59 Labs: Laboratory Last Values WBC 18.1 K/mm3 (4.5-11.0) H 06/02/18 20:59 RBC 3.60 M/mm3 (3.65-5.03) L 06/02/18 20:59 Hgb 10.3 gm/dl (10.1-14.3) 06/02/18 20:59 Hct 31.7 % (30.3-42.9) 06/02/18 20:59 MCV 88 fl (79-97) 06/02/18 20:59 MCH 29 pg (28-32) 06/02/18 20:59 MCHC 32 % (30-34) 06/02/18 20:59 RDW 13.5 % (13.2-15.2) 06/02/18 20:59 Plt Count 447 K/mm3 (140-440) H 06/02/18 20:59 Lymph % (Auto) 4.0 % (13.4-35.0) L 06/02/18 20:59 [place] % (Auto) 5.6 % (0.0-7.3) 06/02/18 20:59 Eos % (Auto) 0.1 % (0.0-4.3) 06/02/18 20:59 Baso % (Auto) 0.4 % (0.0-1.8) 06/02/18 20:59 Lymph # 0.7 K/mm3 (1.2-5.4) L 06/02/18 20:59 [place] # 1.0 K/mm3 (0.0-0.8) H 06/02/18 20:59 Eos # 0.0 K/mm3 (0.0-0.4) 06/02/18 20:59 Baso # 0.1 K/mm3 (0.0-0.1) 06/02/18 20:59 Seg Neutrophils % 89.9 % (40.0-70.0) H 06/02/18 20:59 Seg Neutrophils # 16.3 K/mm3 (1.8-7.7) H 06/02/18 20:59 VBG pH 7.356 (7.320-7.420) 06/02/18 20:59 Sodium 130 mmol/L (137-145) L 06/02/18 20:59 Potassium 4.6 mmol/L (3.6-5.0) 06/02/18 20:59 Chloride 96.8 mmol/L (98-107) L 06/02/18 20:59 Carbon Dioxide 15 mmol/L (22-30) L 06/02/18 20:59 Anion Gap 23 mmol/L 06/02/18 20:59 BUN 34 mg/dL (7-17) H 06/02/18 20:59 Creatinine 1.9 mg/dL (0.7-1.2) H 06/02/18 20:59 Estimated GFR 26 ml/min 06/02/18 20:59 BUN/Creatinine Ratio 18 % 06/02/18 20:59 Glucose 452 mg/dL (65-100) H 06/02/18 20:59 POC Glucose 289 (70-105) H 06/03/18 12:01 Lactic Acid 0.90 mmol/L (0.7-2.0) 06/02/18 22:54 Calcium 8.7 mg/dL (8.4-10.2) 06/02/18 20:59 Magnesium 1.70 mg/dL (1.7-2.3) 06/02/18 22:54 Total Creatine Kinase 39 units/L (30-135) 06/02/18 22:54 Influenza A (Rapid) Negative (Negative) 06/02/18 23:20 Influenza B (Rapid) Negative (Negative) 06/02/18 23:20
--- NOTE | 2018-06-03 17:15 | Consultation ---
REASON FOR CONSULTATION: Rule out right colon colitis. HISTORY OF PRESENT ILLNESS: The patient is a 72-year-old female, who is admitted through the Emergency Room with a chief complaint of nausea, vomiting. Also, states she has had constipation, her last bowel movement being approximately 2 days ago. The patient states she had abdominal pain PAST MEDICAL HISTORY: Pertinent for diabetes and hypertension. PAST SURGICAL HISTORY: Status post open cholecystectomy. Also, status post bilateral toe amputations and status post T and A as a child. ALLERGIES: Allergic to PENICILLIN?. The patient does not recall what reaction she has from taking it. MEDICATIONS: Include insulin and blood pressure meds. FAMILY HISTORY: Negative. SOCIAL HISTORY: Occasional ethanol intake. States she smokes around 2 cigarettes a day, but has been doing so for over 50 years. PHYSICAL EXAMINATION: GENERAL: At this time reveals the patient to be alert, awake, cooperative, in no acute distress. VITAL SIGNS: Showed to be afebrile with a temperature of 97.4, blood pressure 115/30, pulse of 94, respirations of 20. ABDOMEN: Examination of the abdomen reveals to be soft, nontender at present. Bowel sounds are present. LABORATORY DATA: Lab work at present includes a CBC, which shows a white count of 18.1, H and H is 10.3 and 31.7. Electrolytes show low sodium of 130, potassium is 4.6, chloride is 96.8, BUN is 34, creatinine is 1.9. Glucose is 452. A CT scan of the abdomen was performed. IMPRESSION: Concerning with mild colitis involving the cecum and ascending colon. Impression at this time is that of a diabetic hypertensive female, rule out ascending colitis. Clinically, the patient appears stable and has no abdominal pain at this time. RECOMMENDATIONS: We would recommend keeping the patient n.p.o. except for ice chips and p.o. meds for the next 24 hours or so. We will monitor clinically. We will follow with you. Also, we will repeat white count in the morning. JOB# [id number] CIARA/NTS
[2018-06-03 23:41] LABS: Bacteria,Urine 1+ /HPF (Negative); Bilirubin,Urine NEG (Negative); Blood,Urine SM (Negative); Color,Urine Yellow (Yellow); Mucus,Urine FEW /HPF; Urobilinogen,Urine < 2.0 mg/dL (<2.0)
[2018-06-04] MEDS: NACL 0.9% 1000 ML 1,000 ML IV SCH ×2 (00:30→15:02)
[2018-06-04] MEDS ORDERED: ALUM-MAG HYDROX-SIMETH 200-200-20MG/5ML PO PRN (01:19)
[2018-06-04] MEDS: HumuLIN R SUB-Q SCH ×6 (03:12→23:54)
[2018-06-04] MEDS: FLAGYL 500 MG/100 ML 500 MG/100 ML BAG IV SCH ×3 (05:13→22:00)
[2018-06-04 05:32] LABS: Basophils % (Auto) 0.2 % (0.0-1.8); Hematocrit 26.7 % (30.3-42.9); Hemoglobin 8.9 gm/dl (10.1-14.3); Lymphocytes # (Auto) 0.8 K/mm3 (1.2-5.4); Lymphocytes % (Auto) 7.2 % (13.4-35.0); Mean Corpuscular HGB Conc 33 % (30-34); Mean Corpuscular Volume 89 fl (79-97); Monocytes # (Auto) 0.7 K/mm3 (0.0-0.8); Monocytes % (Auto) 5.9 % (0.0-7.3); Platelet Count 355 K/mm3 (140-440); Red Blood Count 3.02 M/mm3 (3.65-5.03)
[2018-06-04 05:52] LABS: Alanine Aminotransferase 6 units/L (7-56); Albumin 2.8 g/dL (3.9-5); BUN/Creatinine Ratio 20; Blood Urea Nitrogen 30 mg/dL (7-17); Calcium 8.3 mg/dL (8.4-10.2); Hemolysis Index 6
--- NOTE | 2018-06-04 10:40 | Query- Renal Failure ---
Elizabeth Crowell____Wise Date: 06/04/18 Manganese Breaker/KIRSTY:____tammy Phone#:____[phone] Exercise your independent professional judgment when responding to query. Questions asked do not imply a particular answer is desired or expected. We greatly appreciate your clarification on this issue. Clinical Documentation States: Patient is a 72 yo woman with a history of COPD, CKD 3, AOCD, hypertension, IDDM and prior right foot amputation due to PAD who presents with abd pains. Assessment and plan: -Bacterial colitis: bowel rest, iv abx, ivf -?Appendicitis: Gen. Surgery is following, -Sepsis due to above, poa: follow culture, follow wbc and treat with abx -DM type 2 on insulin uncontrolled hyperglycemia: Clinical Findings Show: 06/02/18 06/04/18 Creatinine 1.9 1.5 Bun/Cr ratio 18 20 Please clarify if you mean: Acute Renal Failure with or due to: [ ] Tubular Necrosis [ ] Medullary Necrosis [ x] Vasomotor Nephropathy [ ] Shock Kidney [ ] Tubular Nephrosis [ ] Renal Tubular Stasis [ ] Cortical Necrosis [ ] Acute Renal Failure (unspecified) [ ] Lower Tubular Nephrosis [ ] Other: [ ] Not Applicable Present on Admission: [x ] Yes (Y) [ ] Clinically undeterminable (W) [ ] No (N) Please also document response in your Progress Notes and/or Discharge Summary and indicate if the condition was present on admission. BUNNYD
[2018-06-04] MEDS: PROTONIX IV SCH (11:56)
--- NOTE | 2018-06-04 12:56 | Progress Note ---
Assessment and Plan Pt feeling better. pain "better" Abd soft. very mild RLQ tenderness but much improved lowering h/h noted colitis surgically stable monitor h/h awaiting stool cults ice chips and po meds Selected Entries 06/04/18 06/04/18 08:28 10:00 Temperature 98.7 F Pulse Rate [ 92 H Right Radial] Respiratory 18 Rate Blood Pressure 106/55 Laboratory Tests 06/02/18 06/04/18 06/04/18 20:59 04:39 04:39 WBC 11.4 H Hgb 10.3 8.9 L Hct 31.7 26.7 L Sodium 145 D Potassium 3.9 Chloride 112.5 H Carbon Dioxide 17 L Anion Gap 19 BUN 30 H Creatinine 1.5 H Glucose 237 H Objective Vital Signs - 12hr 06/04/18 06/04/18 06/04/18 03:11 04:00 08:28 Temperature 98.5 F 98.7 F Pulse Rate 93 H 95 H Pulse Rate [ Right Radial] Respiratory 20 18 Rate Blood Pressure 116/56 106/55 O2 Sat by Pulse 98 96 97 Oximetry 06/04/18 10:00 Temperature Pulse Rate Pulse Rate [ 92 H Right Radial] Respiratory 18 Rate Blood Pressure O2 Sat by Pulse 97 Oximetry - Labs 06/04/18 04:39 06/04/18 04:39 Diabetes panel 06/04/18 Range/Units 04:39 Sodium 145 D (137-145) mmol/L Potassium 3.9 (3.6-5.0) mmol/L Chloride 112.5 H (98-107) mmol/L Carbon Dioxide 17 L (22-30) mmol/L BUN 30 H (7-17) mg/dL Creatinine 1.5 H (0.7-1.2) mg/dL Glucose 237 H (65-100) mg/dL Calcium 8.3 L (8.4-10.2) mg/dL AST 10 (5-40) units/L ALT 6 L (7-56) units/L Alkaline Phosphatase 84 (35-129) units/L Total Protein 6.3 (6.3-8.2) g/dL Albumin 2.8 L (3.9-5) g/dL Calcium panel 06/04/18 Range/Units 04:39 Calcium 8.3 L (8.4-10.2) mg/dL Albumin 2.8 L (3.9-5) g/dL Pituitary panel 06/04/18 Range/Units 04:39 Sodium 145 D (137-145) mmol/L Potassium 3.9 (3.6-5.0) mmol/L Chloride 112.5 H (98-107) mmol/L Carbon Dioxide 17 L (22-30) mmol/L BUN 30 H (7-17) mg/dL Creatinine 1.5 H (0.7-1.2) mg/dL Glucose 237 H (65-100) mg/dL Calcium 8.3 L (8.4-10.2) mg/dL Adrenal panel 06/04/18 Range/Units 04:39 Sodium 145 D (137-145) mmol/L Potassium 3.9 (3.6-5.0) mmol/L Chloride 112.5 H (98-107) mmol/L Carbon Dioxide 17 L (22-30) mmol/L BUN 30 H (7-17) mg/dL Creatinine 1.5 H (0.7-1.2) mg/dL Glucose 237 H (65-100) mg/dL Calcium 8.3 L (8.4-10.2) mg/dL Total Bilirubin < 0.20 (0.1-1.2) mg/dL AST 10 (5-40) units/L ALT 6 L (7-56) units/L Alkaline Phosphatase 84 (35-129) units/L Total Protein 6.3 (6.3-8.2) g/dL Albumin 2.8 L (3.9-5) g/dL
--- NOTE | 2018-06-04 16:04 | Progress Note ---
Assessment and Plan Assessment and plan: Patient is a 72 yo woman with a history of COPD, CKD 3, AOCD, hypertension, IDDM and prior right foot amputation due to PAD who presents with abd pains. She thinks she is obstructed * CT abd/pelvis wo contrast IMPRESSION: Findings concerning for mild colitis involving the cecum and ascending colon. There is mild dilatation of fat stranding along the appendix concerning for secondary to inflammation of the appendix related to adjacent colitis. Mild primary inflammation of the appendix with reactive colitis is less likely. No free air or abscess. No bowel obstruction. Stable nonobstructive right renal calculus. No hydronephrosis bilaterally. Stable left left adrenal adenoma. -Bacterial colitis: bowel rest, iv abx, ivf -?Appendicitis: Gen. Surgery is following, -Sepsis due to above, poa: follow culture, follow wbc and treat with abx -DM type 2 on insulin uncontrolled hyperglycemia: ssi, ada diet, accuchecks History Interval history: Patient was seen and examined. Follow-up on current diagnosis of colitis. Overnight uneventful. Patient denies any chest pain, shortness breath, or severe headaches. Imaging, nursing note, chart, labs and old chart reviewed. Discussed with patient. Hospitalist Physical - Physical exam Narrative exam: Gen: WDWN, NAD, Awake, Alert, Orientated HEENT: NCAT, EOMI, PERRL, OP Clear Neck: supple, no adenopathy, no thyromegaly, no JVD CVS/Heart: RRR, normal S1S2, pulses present bilaterally Chest/Lungs: CTA B, Symmetrical chest expansion, good air entry bilaterally GI/Abdomen: soft, right sided tenderness good bowel sounds, no guarding or rebound /Bladder: no suprapubic tenderness, no CVA or paraspinal tenderness Extermity/Skin: no c/c/e, no obvious rash MSK: FROM x 4 Neuro: CN 2-12 grossly intact, no new focal deficits Psych: calm - Constitutional Vitals: Temp Pulse Resp BP Pulse Ox 98.7 F 92 H 18 106/55 97 06/04/18 08:28 06/04/18 10:00 06/04/18 10:00 06/04/18 08:28 06/04/18 10:00 Results - Labs CBC & Chem 7: 06/04/18 04:39 06/04/18 04:39 Labs: Laboratory Last Values WBC 11.4 K/mm3 (4.5-11.0) H 06/04/18 04:39 RBC 3.02 M/mm3 (3.65-5.03) L 06/04/18 04:39 Hgb 8.9 gm/dl (10.1-14.3) L 06/04/18 04:39 Hct 26.7 % (30.3-42.9) L 06/04/18 04:39 MCV 89 fl (79-97) 06/04/18 04:39 MCH 30 pg (28-32) 06/04/18 04:39 MCHC 33 % (30-34) 06/04/18 04:39 RDW 14.0 % (13.2-15.2) 06/04/18 04:39 Plt Count 355 K/mm3 (140-440) 06/04/18 04:39 Lymph % (Auto) 7.2 % (13.4-35.0) L 06/04/18 04:39 [place] % (Auto) 5.9 % (0.0-7.3) 06/04/18 04:39 Eos % (Auto) 0.0 % (0.0-4.3) 06/04/18 04:39 Baso % (Auto) 0.2 % (0.0-1.8) 06/04/18 04:39 Lymph # 0.8 K/mm3 (1.2-5.4) L 06/04/18 04:39 [place] # 0.7 K/mm3 (0.0-0.8) 06/04/18 04:39 Eos # 0.0 K/mm3 (0.0-0.4) 06/04/18 04:39 Baso # 0.0 K/mm3 (0.0-0.1) 06/04/18 04:39 Seg Neutrophils % 86.7 % (40.0-70.0) H 06/04/18 04:39 Seg Neutrophils # 9.9 K/mm3 (1.8-7.7) H 06/04/18 04:39 VBG pH 7.356 (7.320-7.420) 06/02/18 20:59 Sodium 145 mmol/L (137-145) D 06/04/18 04:39 Potassium 3.9 mmol/L (3.6-5.0) 06/04/18 04:39 Chloride 112.5 mmol/L (98-107) H 06/04/18 04:39 Carbon Dioxide 17 mmol/L (22-30) L 06/04/18 04:39 Anion Gap 19 mmol/L 06/04/18 04:39 BUN 30 mg/dL (7-17) H 06/04/18 04:39 Creatinine 1.5 mg/dL (0.7-1.2) H 06/04/18 04:39 Estimated GFR 34 ml/min 06/04/18 04:39 BUN/Creatinine Ratio 20 % 06/04/18 04:39 Glucose 237 mg/dL (65-100) H 06/04/18 04:39 POC Glucose 175 (70-105) H 06/04/18 15:07 Lactic Acid 0.90 mmol/L (0.7-2.0) 06/02/18 22:54 Calcium 8.3 mg/dL (8.4-10.2) L 06/04/18 04:39 Magnesium 1.70 mg/dL (1.7-2.3) 06/02/18 22:54 Total Bilirubin < 0.20 mg/dL (0.1-1.2) 06/04/18 04:39 AST 10 units/L (5-40) 06/04/18 04:39 ALT 6 units/L (7-56) L 06/04/18 04:39 Alkaline Phosphatase 84 units/L (35-129) 06/04/18 04:39 Total Creatine Kinase 39 units/L (30-135) 06/02/18 22:54 Total Protein 6.3 g/dL (6.3-8.2) 06/04/18 04:39 Albumin 2.8 g/dL (3.9-5) L 06/04/18 04:39 Albumin/Globulin Ratio 0.8 % 06/04/18 04:39 Urine Color Yellow (Yellow) 06/02/18 23:23 Urine Turbidity Clear (Clear) 06/02/18 23:23 Urine pH 5.0 (5.0-7.0) 06/02/18 23:23 Ur Specific [place] 1.008 (1.003-1.030) 06/02/18 23:23 Urine Protein 30 mg/dl mg/dL (Negative) 06/02/18 23:23 Urine Glucose (UA) 50 mg/dL (Negative) 06/02/18 23:23 Urine Ketones Neg mg/dL (Negative) 06/02/18 23:23 Urine Blood Sm (Negative) 06/02/18 23:23 Urine Nitrite Neg (Negative) 06/02/18 23:23 Urine Bilirubin Neg (Negative) 06/02/18 23:23 Urine Urobilinogen < 2.0 mg/dL (<2.0) 06/02/18 23:23 Ur Leukocyte Esterase Mod (Negative) 06/02/18 23:23 Urine WBC (Auto) 55.0 /HPF (0.0-6.0) H 06/02/18 23:23 Urine RBC (Auto) 4.0 /HPF (0.0-6.0) 06/02/18 23:23 Urine Bacteria (Auto) 1+ /HPF (Negative) 06/02/18 23:23 Urine Mucus Few /HPF 06/02/18 23:23 Influenza A (Rapid) Negative (Negative) 06/02/18 23:20 Influenza B (Rapid) Negative (Negative) 06/02/18 23:20
[2018-06-05] MEDS: HumuLIN R SUB-Q SCH ×6 (04:24→23:46)
[2018-06-05 05:45] LABS: Basophils % (Auto) 0.3 % (0.0-1.8); Eosinophils # (Auto) 0.1 K/mm3 (0.0-0.4); Eosinophils % (Auto) 0.7 % (0.0-4.3); Hematocrit 27.5 % (30.3-42.9); Hemoglobin 9.3 gm/dl (10.1-14.3); Lymphocytes # (Auto) 0.9 K/mm3 (1.2-5.4); Lymphocytes % (Auto) 10.9 % (13.4-35.0); Mean Corpuscular HGB Conc 34 % (30-34); Mean Corpuscular Volume 88 fl (79-97); Monocytes # (Auto) 0.6 K/mm3 (0.0-0.8); Monocytes % (Auto) 7.3 % (0.0-7.3); Platelet Count 365 K/mm3 (140-440); Red Blood Count 3.12 M/mm3 (3.65-5.03); Red Cell Distribution Width 13.9 % (13.2-15.2)
[2018-06-05] MEDS: FLAGYL 500 MG/100 ML 500 MG/100 ML BAG IV SCH ×3 (08:06→22:34)
[2018-06-05] MEDS: LEVAQUIN 750MG/150ML 750 MG/150 ML BAG IV SCH (09:17)
[2018-06-05] MEDS: PROTONIX IV SCH (09:17)
--- NOTE | 2018-06-05 12:35 | Progress Note ---
Assessment and Plan Pt feeling well. no further abd pain Abd soft. RLQ tenderness resolved surgically stable attempt cl liq diet Selected Entries 06/05/18 06/05/18 07:45 10:00 Temperature 98.6 F Pulse Rate [ 96 H Right Radial] O2 Sat by Pulse 97 Oximetry Blood Pressure 112/56 Laboratory Tests 06/04/18 06/05/18 04:39 05:15 WBC 11.4 H 8.7 Hgb 8.9 L 9.3 L Hct 26.7 L 27.5 L Objective Vital Signs - 12hr 06/05/18 06/05/18 06/05/18 02:10 07:45 07:48 Temperature 98.0 F 98.6 F Pulse Rate 90 93 H Pulse Rate [ Right Radial] Respiratory 18 18 Rate Blood Pressure 112/56 Blood Pressure 121/55 [Left] O2 Sat by Pulse 95 97 Oximetry 06/05/18 10:00 Temperature Pulse Rate Pulse Rate [ 96 H Right Radial] Respiratory Rate Blood Pressure Blood Pressure [Left] O2 Sat by Pulse 97 Oximetry - Labs 06/05/18 05:15 06/04/18 04:39
--- NOTE | 2018-06-05 16:59 | Progress Note ---
Assessment and Plan Assessment and plan: Patient is a 72 yo woman with a history of COPD, CKD 3, AOCD, hypertension, IDDM and prior right foot amputation due to PAD who presents with abd pains. She thinks she is obstructed * CT abd/pelvis wo contrast IMPRESSION: Findings concerning for mild colitis involving the cecum and ascending colon. There is mild dilatation of fat stranding along the appendix concerning for secondary to inflammation of the appendix related to adjacent colitis. Mild primary inflammation of the appendix with reactive colitis is less likely. No free air or abscess. No bowel obstruction. Stable nonobstructive right renal calculus. No hydronephrosis bilaterally. Stable left left adrenal adenoma. -Bacterial colitis: advance diet per Surgery, iv abx, ivf -?Appendicitis: Gen. Surgery is following, -Sepsis due to above, poa: follow culture, follow wbc and treat with abx -DM type 2 on insulin uncontrolled hyperglycemia: ssi, ada diet, accuchecks History Interval history: Patient was seen and examined. Follow-up on current diagnosis of colitis. Overnight uneventful. Patient denies any chest pain, shortness breath, or severe headaches. Imaging, nursing note, chart, labs and old chart reviewed. Discussed with patient. Hospitalist Physical - Physical exam Narrative exam: Gen: WDWN, NAD, Awake, Alert, Orientated HEENT: NCAT, EOMI, PERRL, OP Clear Neck: supple, no adenopathy, no thyromegaly, no JVD CVS/Heart: RRR, normal S1S2, pulses present bilaterally Chest/Lungs: CTA B, Symmetrical chest expansion, good air entry bilaterally GI/Abdomen: soft, right sided tenderness good bowel sounds, no guarding or rebound /Bladder: no suprapubic tenderness, no CVA or paraspinal tenderness Extermity/Skin: no c/c/e, no obvious rash MSK: FROM x 4 Neuro: CN 2-12 grossly intact, no new focal deficits Psych: calm - Constitutional Vitals: Temp Pulse Resp BP Pulse Ox 98.1 F 80 18 113/47 98 06/05/18 13:45 06/05/18 13:45 06/05/18 13:45 06/05/18 13:45 06/05/18 13:45 Results - Labs CBC & Chem 7: 06/05/18 05:15 06/04/18 04:39 Labs: Laboratory Last Values WBC 8.7 K/mm3 (4.5-11.0) 06/05/18 05:15 RBC 3.12 M/mm3 (3.65-5.03) L 06/05/18 05:15 Hgb 9.3 gm/dl (10.1-14.3) L 06/05/18 05:15 Hct 27.5 % (30.3-42.9) L 06/05/18 05:15 MCV 88 fl (79-97) 06/05/18 05:15 MCH 30 pg (28-32) 06/05/18 05:15 MCHC 34 % (30-34) 06/05/18 05:15 RDW 13.9 % (13.2-15.2) 06/05/18 05:15 Plt Count 365 K/mm3 (140-440) 06/05/18 05:15 Lymph % (Auto) 10.9 % (13.4-35.0) L 06/05/18 05:15 [place] % (Auto) 7.3 % (0.0-7.3) 06/05/18 05:15 Eos % (Auto) 0.7 % (0.0-4.3) 06/05/18 05:15 Baso % (Auto) 0.3 % (0.0-1.8) 06/05/18 05:15 Lymph # 0.9 K/mm3 (1.2-5.4) L 06/05/18 05:15 [place] # 0.6 K/mm3 (0.0-0.8) 06/05/18 05:15 Eos # 0.1 K/mm3 (0.0-0.4) 06/05/18 05:15 Baso # 0.0 K/mm3 (0.0-0.1) 06/05/18 05:15 Seg Neutrophils % 80.8 % (40.0-70.0) H 06/05/18 05:15 Seg Neutrophils # 7.0 K/mm3 (1.8-7.7) 06/05/18 05:15 VBG pH 7.356 (7.320-7.420) 06/02/18 20:59 Sodium 145 mmol/L (137-145) D 06/04/18 04:39 Potassium 3.9 mmol/L (3.6-5.0) 06/04/18 04:39 Chloride 112.5 mmol/L (98-107) H 06/04/18 04:39 Carbon Dioxide 17 mmol/L (22-30) L 06/04/18 04:39 Anion Gap 19 mmol/L 06/04/18 04:39 BUN 30 mg/dL (7-17) H 06/04/18 04:39 Creatinine 1.5 mg/dL (0.7-1.2) H 06/04/18 04:39 Estimated GFR 34 ml/min 06/04/18 04:39 BUN/Creatinine Ratio 20 % 06/04/18 04:39 Glucose 237 mg/dL (65-100) H 06/04/18 04:39 POC Glucose 225 (70-105) H 06/05/18 15:03 Lactic Acid 0.90 mmol/L (0.7-2.0) 06/02/18 22:54 Calcium 8.3 mg/dL (8.4-10.2) L 06/04/18 04:39 Magnesium 1.70 mg/dL (1.7-2.3) 06/02/18 22:54 Total Bilirubin < 0.20 mg/dL (0.1-1.2) 06/04/18 04:39 AST 10 units/L (5-40) 06/04/18 04:39 ALT 6 units/L (7-56) L 06/04/18 04:39 Alkaline Phosphatase 84 units/L (35-129) 06/04/18 04:39 Total Creatine Kinase 39 units/L (30-135) 06/02/18 22:54 Total Protein 6.3 g/dL (6.3-8.2) 06/04/18 04:39 Albumin 2.8 g/dL (3.9-5) L 06/04/18 04:39 Albumin/Globulin Ratio 0.8 % 06/04/18 04:39 Urine Color Yellow (Yellow) 06/02/18 23:23 Urine Turbidity Clear (Clear) 06/02/18 23:23 Urine pH 5.0 (5.0-7.0) 06/02/18 23:23 Ur Specific [place] 1.008 (1.003-1.030) 06/02/18 23:23 Urine Protein 30 mg/dl mg/dL (Negative) 06/02/18 23:23 Urine Glucose (UA) 50 mg/dL (Negative) 06/02/18 23:23 Urine Ketones Neg mg/dL (Negative) 06/02/18 23:23 Urine Blood Sm (Negative) 06/02/18 23:23 Urine Nitrite Neg (Negative) 06/02/18 23:23 Urine Bilirubin Neg (Negative) 06/02/18 23:23 Urine Urobilinogen < 2.0 mg/dL (<2.0) 06/02/18 23:23 Ur Leukocyte Esterase Mod (Negative) 06/02/18 23:23 Urine WBC (Auto) 55.0 /HPF (0.0-6.0) H 06/02/18 23:23 Urine RBC (Auto) 4.0 /HPF (0.0-6.0) 06/02/18 23:23 Urine Bacteria (Auto) 1+ /HPF (Negative) 06/02/18 23:23 Urine Mucus Few /HPF 06/02/18 23:23 Influenza A (Rapid) Negative (Negative) 06/02/18 23:20 Influenza B (Rapid) Negative (Negative) 06/02/18 23:20
[2018-06-05] MEDS: NACL 0.9% 1000 ML 1,000 ML IV SCH (17:14)
[2018-06-06] MEDS: HumuLIN R SUB-Q SCH ×6 (02:40→22:57)
[2018-06-06] MEDS: FLAGYL 500 MG/100 ML 500 MG/100 ML BAG IV SCH ×3 (05:02→21:33)
--- NOTE | 2018-06-06 08:14 | Progress Note ---
Assessment and Plan Assessment and plan: Patient is a 72 yo woman with a history of COPD, CKD 3, AOCD, hypertension, IDDM and prior right foot amputation due to PAD who presents with abd pains. She thinks she is obstructed * CT abd/pelvis wo contrast IMPRESSION: Findings concerning for mild colitis involving the cecum and ascending colon. There is mild dilatation of fat stranding along the appendix concerning for secondary to inflammation of the appendix related to adjacent colitis. Mild primary inflammation of the appendix with reactive colitis is less likely. No free air or abscess. No bowel obstruction. Stable nonobstructive right renal calculus. No hydronephrosis bilaterally. Stable left left adrenal adenoma. -Bacterial colitis: advance diet per Surgery, iv abx, ivf -?Appendicitis: Gen. Surgery is following, -Sepsis due to above, poa: follow culture, follow wbc and treat with abx -DM type 2 on insulin uncontrolled hyperglycemia: ssi, ada diet, accuchecks History Interval history: Patient was seen and examined. Follow-up on current diagnosis of colitis. Overnight uneventful. Patient denies any chest pain, shortness breath, or severe headaches. Imaging, nursing note, chart, labs and old chart reviewed. Discussed with patient. Hospitalist Physical - Physical exam Narrative exam: Gen: WDWN, NAD, Awake, Alert, Orientated HEENT: NCAT, EOMI, PERRL, OP Clear Neck: supple, no adenopathy, no thyromegaly, no JVD CVS/Heart: RRR, normal S1S2, pulses present bilaterally Chest/Lungs: CTA B, Symmetrical chest expansion, good air entry bilaterally GI/Abdomen: soft, right sided tenderness good bowel sounds, no guarding or rebound /Bladder: no suprapubic tenderness, no CVA or paraspinal tenderness Extermity/Skin: no c/c/e, no obvious rash MSK: FROM x 4 Neuro: CN 2-12 grossly intact, no new focal deficits Psych: calm - Constitutional Vitals: Temp Pulse Resp BP Pulse Ox 98.7 F 77 16 121/49 96 06/05/18 20:04 06/05/18 20:04 06/05/18 20:04 06/05/18 20:04 06/05/18 22:00 Results - Labs CBC & Chem 7: 06/05/18 05:15 06/04/18 04:39 Labs: Laboratory Last Values WBC 8.7 K/mm3 (4.5-11.0) 06/05/18 05:15 RBC 3.12 M/mm3 (3.65-5.03) L 06/05/18 05:15 Hgb 9.3 gm/dl (10.1-14.3) L 06/05/18 05:15 Hct 27.5 % (30.3-42.9) L 06/05/18 05:15 MCV 88 fl (79-97) 06/05/18 05:15 MCH 30 pg (28-32) 06/05/18 05:15 MCHC 34 % (30-34) 06/05/18 05:15 RDW 13.9 % (13.2-15.2) 06/05/18 05:15 Plt Count 365 K/mm3 (140-440) 06/05/18 05:15 Lymph % (Auto) 10.9 % (13.4-35.0) L 06/05/18 05:15 [place] % (Auto) 7.3 % (0.0-7.3) 06/05/18 05:15 Eos % (Auto) 0.7 % (0.0-4.3) 06/05/18 05:15 Baso % (Auto) 0.3 % (0.0-1.8) 06/05/18 05:15 Lymph # 0.9 K/mm3 (1.2-5.4) L 06/05/18 05:15 [place] # 0.6 K/mm3 (0.0-0.8) 06/05/18 05:15 Eos # 0.1 K/mm3 (0.0-0.4) 06/05/18 05:15 Baso # 0.0 K/mm3 (0.0-0.1) 06/05/18 05:15 Seg Neutrophils % 80.8 % (40.0-70.0) H 06/05/18 05:15 Seg Neutrophils # 7.0 K/mm3 (1.8-7.7) 06/05/18 05:15 VBG pH 7.356 (7.320-7.420) 06/02/18 20:59 Sodium 145 mmol/L (137-145) D 06/04/18 04:39 Potassium 3.9 mmol/L (3.6-5.0) 06/04/18 04:39 Chloride 112.5 mmol/L (98-107) H 06/04/18 04:39 Carbon Dioxide 17 mmol/L (22-30) L 06/04/18 04:39 Anion Gap 19 mmol/L 06/04/18 04:39 BUN 30 mg/dL (7-17) H 06/04/18 04:39 Creatinine 1.5 mg/dL (0.7-1.2) H 06/04/18 04:39 Estimated GFR 34 ml/min 06/04/18 04:39 BUN/Creatinine Ratio 20 % 06/04/18 04:39 Glucose 237 mg/dL (65-100) H 06/04/18 04:39 POC Glucose 166 (70-105) H 06/06/18 06:30 Lactic Acid 0.90 mmol/L (0.7-2.0) 06/02/18 22:54 Calcium 8.3 mg/dL (8.4-10.2) L 06/04/18 04:39 Magnesium 1.70 mg/dL (1.7-2.3) 06/02/18 22:54 Total Bilirubin < 0.20 mg/dL (0.1-1.2) 06/04/18 04:39 AST 10 units/L (5-40) 06/04/18 04:39 ALT 6 units/L (7-56) L 06/04/18 04:39 Alkaline Phosphatase 84 units/L (35-129) 06/04/18 04:39 Total Creatine Kinase 39 units/L (30-135) 06/02/18 22:54 Total Protein 6.3 g/dL (6.3-8.2) 06/04/18 04:39 Albumin 2.8 g/dL (3.9-5) L 06/04/18 04:39 Albumin/Globulin Ratio 0.8 % 06/04/18 04:39 Urine Color Yellow (Yellow) 06/02/18 23:23 Urine Turbidity Clear (Clear) 06/02/18 23:23 Urine pH 5.0 (5.0-7.0) 06/02/18 23:23 Ur Specific [place] 1.008 (1.003-1.030) 06/02/18 23:23 Urine Protein 30 mg/dl mg/dL (Negative) 06/02/18 23:23 Urine Glucose (UA) 50 mg/dL (Negative) 06/02/18 23:23 Urine Ketones Neg mg/dL (Negative) 06/02/18 23:23 Urine Blood Sm (Negative) 06/02/18 23:23 Urine Nitrite Neg (Negative) 06/02/18 23:23 Urine Bilirubin Neg (Negative) 06/02/18 23:23 Urine Urobilinogen < 2.0 mg/dL (<2.0) 06/02/18 23:23 Ur Leukocyte Esterase Mod (Negative) 06/02/18 23:23 Urine WBC (Auto) 55.0 /HPF (0.0-6.0) H 06/02/18 23:23 Urine RBC (Auto) 4.0 /HPF (0.0-6.0) 06/02/18 23:23 Urine Bacteria (Auto) 1+ /HPF (Negative) 06/02/18 23:23 Urine Mucus Few /HPF 06/02/18 23:23 Influenza A (Rapid) Negative (Negative) 06/02/18 23:20 Influenza B (Rapid) Negative (Negative) 06/02/18 23:20
[2018-06-06] MEDS: PROTONIX IV SCH (09:22)
[2018-06-06] MEDS: NACL 0.9% 1000 ML 1,000 ML IV SCH (11:50)
--- NOTE | 2018-06-06 13:16 | Progress Note ---
Assessment and Plan Pt feeling better. montserrat cl liq Abd soft. slight RLQ tenderness but minimal stable advance to full liq diet continue present care Selected Entries 06/06/18 06/06/18 07:34 10:00 Temperature 98.2 F Pulse Rate [ 72 Right Radial] O2 Sat by Pulse 96 Oximetry Objective Vital Signs - 12hr 06/06/18 06/06/18 06/06/18 02:13 02:14 07:34 Temperature 98.2 F 98.2 F Pulse Rate 76 76 73 Pulse Rate [ Right Radial] Respiratory 18 20 Rate Blood Pressure 132/58 119/59 O2 Sat by Pulse 98 99 96 Oximetry 06/06/18 10:00 Temperature Pulse Rate Pulse Rate [ 72 Right Radial] Respiratory Rate Blood Pressure O2 Sat by Pulse 96 Oximetry - Labs 06/05/18 05:15 06/04/18 04:39
[2018-06-07] MEDS: HumuLIN R SUB-Q SCH ×7 (03:56→23:22)
[2018-06-07] MEDS: NACL 0.9% 1000 ML 1,000 ML IV SCH (04:59)
[2018-06-07] MEDS: FLAGYL 500 MG/100 ML 500 MG/100 ML BAG IV SCH ×3 (05:50→21:24)
[2018-06-07] MEDS: LEVAQUIN 750MG/150ML 750 MG/150 ML BAG IV SCH (09:36)
[2018-06-07] MEDS: PROTONIX IV SCH (09:36)
--- NOTE | 2018-06-07 09:55 | Progress Note ---
Assessment and Plan Pt status quo. still c/o of slight RLQ abd pain and some diarrhea Abd exam - status quo imp - slowly improving colitis. still persistent diarrha keep on liq diet for now until diarrhea resolves stool cults x 3 GI eval - pt will need colonoscopy in near future once acute process resolves Selected Entries 06/07/18 07:41 Temperature 97.3 F L Pulse Rate 80 Respiratory 20 Rate Blood Pressure 124/73 Objective Vital Signs - 12hr 06/06/18 06/07/18 06/07/18 22:00 02:14 07:41 Temperature 97.5 F L 97.3 F L Pulse Rate 75 80 Pulse Rate [ 74 Right Radial] Respiratory 20 18 20 Rate Blood Pressure 127/60 124/73 O2 Sat by Pulse 100 99 98 Oximetry - Labs 06/05/18 05:15 06/04/18 04:39
--- NOTE | 2018-06-07 15:56 | Progress Note ---
Assessment and Plan Assessment and plan: Patient is a 72 yo woman with a history of COPD, CKD 3, AOCD, hypertension, IDDM and prior right foot amputation due to PAD who presents with abd pains. She thinks she is obstructed * CT abd/pelvis wo contrast IMPRESSION: Findings concerning for mild colitis involving the cecum and ascending colon. There is mild dilatation of fat stranding along the appendix concerning for secondary to inflammation of the appendix related to adjacent colitis. Mild primary inflammation of the appendix with reactive colitis is less likely. No free air or abscess. No bowel obstruction. Stable nonobstructive right renal calculus. No hydronephrosis bilaterally. Stable left left adrenal adenoma. -Bacterial colitis: advance diet per Surgery, iv abx, ivf -?Appendicitis: Gen. Surgery is following, -Sepsis due to above, poa: follow culture, follow wbc and treat with abx -DM type 2 on insulin uncontrolled hyperglycemia: ssi, ada diet, accuchecks History Interval history: Patient was seen and examined. Follow-up on current diagnosis of colitis. Overnight uneventful. Patient denies any chest pain, shortness breath, or severe headaches. Imaging, nursing note, chart, labs and old chart reviewed. Discussed with patient. Hospitalist Physical - Physical exam Narrative exam: Gen: WDWN, NAD, Awake, Alert, Orientated HEENT: NCAT, EOMI, PERRL, OP Clear Neck: supple, no adenopathy, no thyromegaly, no JVD CVS/Heart: RRR, normal S1S2, pulses present bilaterally Chest/Lungs: CTA B, Symmetrical chest expansion, good air entry bilaterally GI/Abdomen: soft, right sided tenderness good bowel sounds, no guarding or rebound /Bladder: no suprapubic tenderness, no CVA or paraspinal tenderness Extermity/Skin: no c/c/e, no obvious rash MSK: FROM x 4 Neuro: CN 2-12 grossly intact, no new focal deficits Psych: calm - Constitutional Vitals: Temp Pulse Resp BP Pulse Ox 98.2 F 82 22 125/56 98 06/07/18 13:24 06/07/18 13:24 06/07/18 13:24 06/07/18 13:24 06/07/18 13:24 Results - Labs CBC & Chem 7: 06/05/18 05:15 06/04/18 04:39 Labs: Laboratory Last Values WBC 8.7 K/mm3 (4.5-11.0) 06/05/18 05:15 RBC 3.12 M/mm3 (3.65-5.03) L 06/05/18 05:15 Hgb 9.3 gm/dl (10.1-14.3) L 06/05/18 05:15 Hct 27.5 % (30.3-42.9) L 06/05/18 05:15 MCV 88 fl (79-97) 06/05/18 05:15 MCH 30 pg (28-32) 06/05/18 05:15 MCHC 34 % (30-34) 06/05/18 05:15 RDW 13.9 % (13.2-15.2) 06/05/18 05:15 Plt Count 365 K/mm3 (140-440) 06/05/18 05:15 Lymph % (Auto) 10.9 % (13.4-35.0) L 06/05/18 05:15 [place] % (Auto) 7.3 % (0.0-7.3) 06/05/18 05:15 Eos % (Auto) 0.7 % (0.0-4.3) 06/05/18 05:15 Baso % (Auto) 0.3 % (0.0-1.8) 06/05/18 05:15 Lymph # 0.9 K/mm3 (1.2-5.4) L 06/05/18 05:15 [place] # 0.6 K/mm3 (0.0-0.8) 06/05/18 05:15 Eos # 0.1 K/mm3 (0.0-0.4) 06/05/18 05:15 Baso # 0.0 K/mm3 (0.0-0.1) 06/05/18 05:15 Seg Neutrophils % 80.8 % (40.0-70.0) H 06/05/18 05:15 Seg Neutrophils # 7.0 K/mm3 (1.8-7.7) 06/05/18 05:15 VBG pH 7.356 (7.320-7.420) 06/02/18 20:59 Sodium 145 mmol/L (137-145) D 06/04/18 04:39 Potassium 3.9 mmol/L (3.6-5.0) 06/04/18 04:39 Chloride 112.5 mmol/L (98-107) H 06/04/18 04:39 Carbon Dioxide 17 mmol/L (22-30) L 06/04/18 04:39 Anion Gap 19 mmol/L 06/04/18 04:39 BUN 30 mg/dL (7-17) H 06/04/18 04:39 Creatinine 1.5 mg/dL (0.7-1.2) H 06/04/18 04:39 Estimated GFR 34 ml/min 06/04/18 04:39 BUN/Creatinine Ratio 20 % 06/04/18 04:39 Glucose 237 mg/dL (65-100) H 06/04/18 04:39 POC Glucose 394 (70-105) H 06/07/18 15:25 Lactic Acid 0.90 mmol/L (0.7-2.0) 06/02/18 22:54 Calcium 8.3 mg/dL (8.4-10.2) L 06/04/18 04:39 Magnesium 1.70 mg/dL (1.7-2.3) 06/02/18 22:54 Total Bilirubin < 0.20 mg/dL (0.1-1.2) 06/04/18 04:39 AST 10 units/L (5-40) 06/04/18 04:39 ALT 6 units/L (7-56) L 06/04/18 04:39 Alkaline Phosphatase 84 units/L (35-129) 06/04/18 04:39 Total Creatine Kinase 39 units/L (30-135) 06/02/18 22:54 Total Protein 6.3 g/dL (6.3-8.2) 06/04/18 04:39 Albumin 2.8 g/dL (3.9-5) L 06/04/18 04:39 Albumin/Globulin Ratio 0.8 % 06/04/18 04:39 Urine Color Yellow (Yellow) 06/02/18 23:23 Urine Turbidity Clear (Clear) 06/02/18 23:23 Urine pH 5.0 (5.0-7.0) 06/02/18 23:23 Ur Specific [place] 1.008 (1.003-1.030) 06/02/18 23:23 Urine Protein 30 mg/dl mg/dL (Negative) 06/02/18 23:23 Urine Glucose (UA) 50 mg/dL (Negative) 06/02/18 23:23 Urine Ketones Neg mg/dL (Negative) 06/02/18 23:23 Urine Blood Sm (Negative) 06/02/18 23:23 Urine Nitrite Neg (Negative) 06/02/18 23:23 Urine Bilirubin Neg (Negative) 06/02/18 23:23 Urine Urobilinogen < 2.0 mg/dL (<2.0) 06/02/18 23:23 Ur Leukocyte Esterase Mod (Negative) 06/02/18 23:23 Urine WBC (Auto) 55.0 /HPF (0.0-6.0) H 06/02/18 23:23 Urine RBC (Auto) 4.0 /HPF (0.0-6.0) 06/02/18 23:23 Urine Bacteria (Auto) 1+ /HPF (Negative) 06/02/18 23:23 Urine Mucus Few /HPF 06/02/18 23:23 Influenza A (Rapid) Negative (Negative) 06/02/18 23:20 Influenza B (Rapid) Negative (Negative) 06/02/18 23:20
[2018-06-08] MEDS: HumuLIN R SUB-Q SCH ×6 (02:41→22:40)
[2018-06-08] MEDS: FLAGYL 500 MG/100 ML 500 MG/100 ML BAG IV SCH ×3 (05:07→21:00)
[2018-06-08 05:28] LABS: Basophils % (Auto) 0.4 % (0.0-1.8); Eosinophils # (Auto) 0.2 K/mm3 (0.0-0.4); Eosinophils % (Auto) 2.8 % (0.0-4.3); Hematocrit 28.7 % (30.3-42.9); Hemoglobin 9.9 gm/dl (10.1-14.3); Lymphocytes # (Auto) 1.3 K/mm3 (1.2-5.4); Lymphocytes % (Auto) 15.1 % (13.4-35.0); Mean Corpuscular HGB Conc 34 % (30-34); Mean Corpuscular Volume 87 fl (79-97); Monocytes # (Auto) 0.8 K/mm3 (0.0-0.8); Monocytes % (Auto) 8.7 % (0.0-7.3); Platelet Count 393 K/mm3 (140-440); Red Blood Count 3.32 M/mm3 (3.65-5.03); Red Cell Distribution Width 13.8 % (13.2-15.2)
[2018-06-08 05:32] LABS: Alanine Aminotransferase 6 units/L (7-56); Albumin 2.7 g/dL (3.9-5); BUN/Creatinine Ratio 5; Blood Urea Nitrogen 5 mg/dL (7-17); Calcium 7.6 mg/dL (8.4-10.2); Hemolysis Index 6
[2018-06-08] MEDS ORDERED: K-DUR PO NR (05:47)
[2018-06-08] MEDS ORDERED: POTASSIUM CHLORIDE PO ONE ×2 (08:55→12:00)
[2018-06-08] MEDS: PROTONIX IV SCH (09:48)
--- NOTE | 2018-06-08 11:15 | Progress Note ---
Assessment and Plan Pt feeling well. no further pain. montserrat full liq Abd soft, non tender surgically stable very low K High BS advance to solid diet as montserrat correct K & BS as per PCP await stool cult results Selected Entries 06/08/18 06/08/18 02:56 07:16 Temperature 98.6 F Pulse Rate 80 Respiratory 14 Rate Blood Pressure 135/65 Laboratory Tests 06/08/18 06/08/18 06/08/18 04:00 04:00 11:03 WBC 8.9 Hgb 9.9 L Hct 28.7 L Potassium 2.2 L* D POC Glucose 305 H Objective Vital Signs - 12hr 06/08/18 06/08/18 02:56 07:16 Temperature 98.6 F Pulse Rate 80 Respiratory 20 14 Rate Blood Pressure 122/49 135/65 O2 Sat by Pulse 98 Oximetry - Labs 06/08/18 04:00 06/08/18 04:00 Diabetes panel 06/08/18 Range/Units 04:00 Sodium 143 (137-145) mmol/L Potassium 2.2 L* D (3.6-5.0) mmol/L Chloride 106.2 (98-107) mmol/L Carbon Dioxide 22 (22-30) mmol/L BUN 5 L (7-17) mg/dL Creatinine 1.0 (0.7-1.2) mg/dL Glucose 155 H (65-100) mg/dL Calcium 7.6 L (8.4-10.2) mg/dL AST 13 (5-40) units/L ALT 6 L (7-56) units/L Alkaline Phosphatase 70 (35-129) units/L Total Protein 6.4 (6.3-8.2) g/dL Albumin 2.7 L (3.9-5) g/dL Calcium panel 06/08/18 Range/Units 04:00 Calcium 7.6 L (8.4-10.2) mg/dL Albumin 2.7 L (3.9-5) g/dL Pituitary panel 06/08/18 Range/Units 04:00 Sodium 143 (137-145) mmol/L Potassium 2.2 L* D (3.6-5.0) mmol/L Chloride 106.2 (98-107) mmol/L Carbon Dioxide 22 (22-30) mmol/L BUN 5 L (7-17) mg/dL Creatinine 1.0 (0.7-1.2) mg/dL Glucose 155 H (65-100) mg/dL Calcium 7.6 L (8.4-10.2) mg/dL Adrenal panel 06/08/18 Range/Units 04:00 Sodium 143 (137-145) mmol/L Potassium 2.2 L* D (3.6-5.0) mmol/L Chloride 106.2 (98-107) mmol/L Carbon Dioxide 22 (22-30) mmol/L BUN 5 L (7-17) mg/dL Creatinine 1.0 (0.7-1.2) mg/dL Glucose 155 H (65-100) mg/dL Calcium 7.6 L (8.4-10.2) mg/dL Total Bilirubin < 0.20 (0.1-1.2) mg/dL AST 13 (5-40) units/L ALT 6 L (7-56) units/L Alkaline Phosphatase 70 (35-129) units/L Total Protein 6.4 (6.3-8.2) g/dL Albumin 2.7 L (3.9-5) g/dL
[2018-06-08] MEDS: NACL 0.9% 1000 ML 1,000 ML IV SCH ×2 (12:05→14:24)
--- NOTE | 2018-06-08 14:23 | Progress Note ---
Assessment and Plan Assessment and plan: Patient is a 72 yo woman with a history of COPD, CKD 3, AOCD, hypertension, IDDM and prior right foot amputation due to PAD who presents with abd pains. She thinks she is obstructed * CT abd/pelvis wo contrast IMPRESSION: Findings concerning for mild colitis involving the cecum and ascending colon. There is mild dilatation of fat stranding along the appendix concerning for secondary to inflammation of the appendix related to adjacent colitis. Mild primary inflammation of the appendix with reactive colitis is less likely. No free air or abscess. No bowel obstruction. Stable nonobstructive right renal calculus. No hydronephrosis bilaterally. Stable left left adrenal adenoma. -Bacterial colitis: advance diet per Surgery, iv abx, ivf -?Appendicitis: Gen. Surgery is following, -Sepsis due to above, poa: follow culture, follow wbc and treat with abx -DM type 2 on insulin uncontrolled hyperglycemia: ssi, ada diet, accuchecks History Interval history: Patient was seen and examined. Follow-up on current diagnosis of colitis. Overnight uneventful. Patient denies any chest pain, shortness breath, or severe headaches. Imaging, nursing note, chart, labs and old chart reviewed. Discussed with patient. Hospitalist Physical - Physical exam Narrative exam: Gen: WDWN, NAD, Awake, Alert, Orientated HEENT: NCAT, EOMI, PERRL, OP Clear Neck: supple, no adenopathy, no thyromegaly, no JVD CVS/Heart: RRR, normal S1S2, pulses present bilaterally Chest/Lungs: CTA B, Symmetrical chest expansion, good air entry bilaterally GI/Abdomen: soft, right sided tenderness good bowel sounds, no guarding or rebound /Bladder: no suprapubic tenderness, no CVA or paraspinal tenderness Extermity/Skin: no c/c/e, no obvious rash MSK: FROM x 4 Neuro: CN 2-12 grossly intact, no new focal deficits Psych: calm - Constitutional Vitals: Temp Pulse Resp BP Pulse Ox 98.6 F 80 14 135/65 98 06/08/18 02:56 06/08/18 07:16 06/08/18 07:16 06/08/18 07:16 06/08/18 07:16 Results - Labs CBC & Chem 7: 06/08/18 04:00 06/08/18 04:00 Labs: Laboratory Last Values WBC 8.9 K/mm3 (4.5-11.0) 06/08/18 04:00 RBC 3.32 M/mm3 (3.65-5.03) L 06/08/18 04:00 Hgb 9.9 gm/dl (10.1-14.3) L 06/08/18 04:00 Hct 28.7 % (30.3-42.9) L 06/08/18 04:00 MCV 87 fl (79-97) 06/08/18 04:00 MCH 30 pg (28-32) 06/08/18 04:00 MCHC 34 % (30-34) 06/08/18 04:00 RDW 13.8 % (13.2-15.2) 06/08/18 04:00 Plt Count 393 K/mm3 (140-440) 06/08/18 04:00 Lymph % (Auto) 15.1 % (13.4-35.0) 06/08/18 04:00 [place] % (Auto) 8.7 % (0.0-7.3) H 06/08/18 04:00 Eos % (Auto) 2.8 % (0.0-4.3) 06/08/18 04:00 Baso % (Auto) 0.4 % (0.0-1.8) 06/08/18 04:00 Lymph # 1.3 K/mm3 (1.2-5.4) 06/08/18 04:00 [place] # 0.8 K/mm3 (0.0-0.8) 06/08/18 04:00 Eos # 0.2 K/mm3 (0.0-0.4) 06/08/18 04:00 Baso # 0.0 K/mm3 (0.0-0.1) 06/08/18 04:00 Seg Neutrophils % 73.0 % (40.0-70.0) H 06/08/18 04:00 Seg Neutrophils # 6.5 K/mm3 (1.8-7.7) 06/08/18 04:00 VBG pH 7.356 (7.320-7.420) 06/02/18 20:59 Sodium 143 mmol/L (137-145) 06/08/18 04:00 Potassium 2.2 mmol/L (3.6-5.0) L* D 06/08/18 04:00 Chloride 106.2 mmol/L (98-107) 06/08/18 04:00 Carbon Dioxide 22 mmol/L (22-30) 06/08/18 04:00 Anion Gap 17 mmol/L 06/08/18 04:00 BUN 5 mg/dL (7-17) L 06/08/18 04:00 Creatinine 1.0 mg/dL (0.7-1.2) 06/08/18 04:00 Estimated GFR 55 ml/min 06/08/18 04:00 BUN/Creatinine Ratio 5 % 06/08/18 04:00 Glucose 155 mg/dL (65-100) H 06/08/18 04:00 POC Glucose 305 (70-105) H 06/08/18 11:03 Lactic Acid 0.90 mmol/L (0.7-2.0) 06/02/18 22:54 Calcium 7.6 mg/dL (8.4-10.2) L 06/08/18 04:00 Magnesium 1.70 mg/dL (1.7-2.3) 06/02/18 22:54 Total Bilirubin < 0.20 mg/dL (0.1-1.2) 06/08/18 04:00 AST 13 units/L (5-40) 06/08/18 04:00 ALT 6 units/L (7-56) L 06/08/18 04:00 Alkaline Phosphatase 70 units/L (35-129) 06/08/18 04:00 Total Creatine Kinase 39 units/L (30-135) 06/02/18 22:54 Total Protein 6.4 g/dL (6.3-8.2) 06/08/18 04:00 Albumin 2.7 g/dL (3.9-5) L 06/08/18 04:00 Albumin/Globulin Ratio 0.7 % 06/08/18 04:00 Urine Color Yellow (Yellow) 06/02/18 23:23 Urine Turbidity Clear (Clear) 06/02/18 23:23 Urine pH 5.0 (5.0-7.0) 06/02/18 23:23 Ur Specific [place] 1.008 (1.003-1.030) 06/02/18 23:23 Urine Protein 30 mg/dl mg/dL (Negative) 06/02/18 23:23 Urine Glucose (UA) 50 mg/dL (Negative) 06/02/18 23:23 Urine Ketones Neg mg/dL (Negative) 06/02/18 23: Urine Blood Sm (Negative) 06/02/18 23:23 Urine Nitrite Neg (Negative) 06/02/18 23:23 Urine Bilirubin Neg (Negative) 06/02/18 23: Urine Urobilinogen < 2.0 mg/dL (<2.0) 06/02/18 23: Ur Leukocyte Esterase Mod (Negative) 06/02/18 23: Urine WBC (Auto) 55.0 /HPF (0.0-6.0) H 06/02/18 23: Urine RBC (Auto) 4.0 /HPF (0.0-6.0) 06/02/18 23:23 Urine Bacteria (Auto) 1+ /HPF (Negative) 06/02/18 23: Urine Mucus Few /HPF 06/02/18 23:23 Influenza A (Rapid) Negative (Negative) 06/02/18 23:20 Influenza B (Rapid) Negative (Negative) 06/02/18 23:20
[2018-06-08 14:47] LABS: BUN/Creatinine Ratio 8; Blood Urea Nitrogen 7 mg/dL (7-17); Calcium 7.4 mg/dL (8.4-10.2); Hemolysis Index 5
[2018-06-08 22:01] LABS: BUN/Creatinine Ratio 8; Blood Urea Nitrogen 7 mg/dL (7-17); Calcium 7.4 mg/dL (8.4-10.2); Hemolysis Index 4
[2018-06-09] MEDS: HumuLIN R SUB-Q SCH ×6 (02:08→22:09)
[2018-06-09] MEDS: MORPHINE IV PRN ×3 (05:15→21:03)
[2018-06-09] MEDS: NACL 0.9% 1000 ML 1,000 ML IV SCH ×2 (05:25→20:48)
[2018-06-09 07:02] LABS: BUN/Creatinine Ratio 9; Blood Urea Nitrogen 7 mg/dL (7-17); Calcium 7.3 mg/dL (8.4-10.2); Hemolysis Index 10
[2018-06-09] MEDS: LEVAQUIN PO SCH (09:24)
[2018-06-09] MEDS: PROTONIX PO SCH (09:24)
--- NOTE | 2018-06-09 11:30 | Gastroenterology Consultation ---
<RUSTY SALDAÑA - Last Filed: 06/09/18 14:31> History of Present Illness - Reason for Consult Consult date: 06/09/18 colonoscopy in near future Requesting physician: JASON DE LA ROSA - History of Present Illness Patient is a 72 y/o female with PMH of COPD, CKD, HTN, AOCD, IDDM, and PAD (s/p right foot amputation) who presented to ED with c/o abd pain, N/V, and concern for bowel obstruction. Upon admission, abd CT showed mild colitis involving the cecum and ascending colon with inflammation of the appendix related to adjacent colitis (no bowel obstruction). Surgery is following. GI has been consulted for colitis (need for colonoscopy?). This afternoon patient was resting in bed w/o acute distress. Reports feeling better with with abd pain improved and N/V resolved. Tolerating diet. Last BM was this am with loose stool (stool culture negative). No recent abx therapy, travel, or ill contacts. No hx or Fhx of IBD. Patient is previously known to our service from a consult last year for anemia. She underwent an EGD/colonoscopy for evaluation on 09/17/2017 which revealed mild duodenitis and diverticulosis, but otherwise unremarkable. Past History Past Medical History: other (as per HPI) Past Surgical History: cholecystectomy, Other (amputation of right foot) Social history: smoking, other (alcohol). denies: IV drug use Medications and Allergies Allergies Allergy/AdvReac Type Severity Reaction Status Date / Time Penicillins Allergy Unknown Verified 11/16/15 13:37 Home Medications Medication Instructions Recorded Confirmed Last Taken Type Lispro Insulin [Humalog] See Protocol SQ ACHS 09/13/17 06/03/18 Unknown History Insulin NPH/Regular [NovoLIN 70/30] 25 unit SUB-Q BID 30 Days units 09/18/17 06/03/18 Unknown Rx Zolpidem [Ambien] 5 mg PO QHS PRN #5 tablet 09/18/17 06/03/18 Unknown Rx oxyCODONE /ACETAMINOPHEN [Percocet 1 tab PO Q6H PRN #14 tablet 11/14/17 06/03/18 Unknown Rx 5/325 mg] Active Meds: Active Medications Acetaminophen (Tylenol) 650 mg MT Q4H PRN PRN Reason: Fever >101 Dextrose (D50w (25gm) Syringe) 50 ml IV PRN PRN PRN Reason: Hypoglycemia Sodium Chloride (Nacl 0.9% 1000 Ml) 1,000 mls @ 75 mls/hr IV DIRECT [facility] Last Admin: 06/09/18 05:25 Dose: 75 mls/hr Documented by: Insulin Human Regular (Humulin R) 0 units SUB-Q Q4HR [facility]; Protocol Last Admin: 06/09/18 10:13 Dose: 6 units Documented by: Levofloxacin (Levaquin) 750 mg PO Q48HR [facility] Last Admin: 06/09/18 09:24 Dose: 750 mg Documented by: Morphine Sulfate (Morphine) 2 mg IV Q3H PRN PRN Reason: Pain, Moderate (4-6) Last Admin: 06/09/18 09:28 Dose: 2 mg Documented by: Ondansetron HCl (Zofran) 4 mg IV Q8H PRN PRN Reason: Nausea And Vomiting Pantoprazole Sodium (Protonix) 40 mg PO DAILY [facility] Last Admin: 06/09/18 09:24 Dose: 40 mg Documented by: medications reviewed/updated as required Review of Systems - Review of Systems All systems: negative Gastrointestinal: abdominal pain (improved) Exam - Constitutional Vital Signs: Temp Pulse Resp BP Pulse Ox 97.8 F 92 H 18 132/63 98 06/09/18 08:01 06/09/18 08:01 06/09/18 08:01 06/09/18 08:01 06/09/18 08:01 General appearance: no acute distress - Respiratory Respiratory: bilateral: CTA (anterior) - Cardiovascular Rhythm: regular Heart Sounds: Present: S1 & S2 - Gastrointestinal General gastrointestinal: Present: soft, tender (slight TTP in lower abdomen), non-distended, normal bowel sounds - Neurologic Neurological: alert and oriented x3 - Labs CBC & Chem 7: 06/08/18 04:00 06/09/18 Unknown Lab Results: Laboratory Results - last 24 hr 06/08/18 06/08/18 06/08/18 14:12 15:04 18:11 Sodium 139 Potassium 4.2 D Chloride 104.2 Carbon Dioxide 22 Anion Gap 17 BUN 7 Creatinine 0.9 Estimated GFR > 60 BUN/Creatinine Ratio 8 Glucose 409 H POC Glucose 333 H 293 H Calcium 7.4 L 06/08/18 06/08/18 06/09/18 22:13 Unknown 02:03 Sodium 137 Potassium 3.3 L D Chloride 102.8 Carbon Dioxide 23 Anion Gap 15 BUN 7 Creatinine 0.9 Estimated GFR > 60 BUN/Creatinine Ratio 8 Glucose 242 H POC Glucose 246 H 206 H Calcium 7.4 L 06/09/18 06/09/18 06/09/18 06:06 10:07 Unknown Sodium 139 Potassium 3.2 L Chloride 102.6 Carbon Dioxide 24 Anion Gap 16 BUN 7 Creatinine 0.8 Estimated GFR > 60 BUN/Creatinine Ratio 9 Glucose 189 H POC Glucose 187 H 276 H Calcium 7.3 L Assessment and Plan 1.colitis -afebrile -WBC WNL -stool culture negative -abd CT showed mild colitis involving the cecum and ascending colon with inflammation of the appendix related to adjacent colitis (no bowel obstruction) -surgery following -last colonoscopy 09/2017 showed diverticulosis, otherwise unremarkable -etiology unclear-possibly infectious vs inflammatory vs other -clinically patient is feeling better with abd pain improved with empiric antibiotics. N/V resolved. Tolerating diet. -no plans for scope at this time (up to date on colonoscopy as above) -continue antibiotics and supportive care -repeat CT pending for tomorrow per surgery- if results show improvement, okay to be d/c per GI standpoint with follow up in clinic in ~2-3 weeks <GENEVIVEE ARENAS - Last Filed: 06/09/18 19:01> Medications and Allergies Active Meds: Active Medications Acetaminophen (Tylenol) 650 mg MT Q4H PRN PRN Reason: Fever >101 Dextrose (D50w (25gm) Syringe) 50 ml IV PRN PRN PRN Reason: Hypoglycemia Sodium Chloride (Nacl 0.9% 1000 Ml) 1,000 mls @ 75 mls/hr IV DIRECT [facility] Last Admin: 06/09/18 05:25 Dose: 75 mls/hr Documented by: Insulin Human Regular (Humulin R) 0 units SUB-Q Q4HR [facility]; Protocol Last Admin: 06/09/18 18:28 Dose: 6 units Documented by: Levofloxacin (Levaquin) 750 mg PO Q48HR [facility] Last Admin: 06/09/18 09:24 Dose: 750 mg Documented by: Morphine Sulfate (Morphine) 2 mg IV Q3H PRN PRN Reason: Pain, Moderate (4-6) Last Admin: 06/09/18 09:28 Dose: 2 mg Documented by: Ondansetron HCl (Zofran) 4 mg IV Q8H PRN PRN Reason: Nausea And Vomiting Pantoprazole Sodium (Protonix) 40 mg PO DAILY [facility] Last Admin: 06/09/18 09:24 Dose: 40 mg Documented by: Exam - Constitutional Vital Signs: Temp Pulse Resp BP Pulse Ox 98.1 F 85 18 142/67 99 06/09/18 13:29 06/09/18 13:29 06/09/18 13:29 06/09/18 13:29 06/09/18 13:29 - Labs CBC & Chem 7: 06/08/18 04:00 06/09/18 Unknown Lab Results: Laboratory Results - last 24 hr 06/08/18 06/08/18 06/09/18 22:13 Unknown 02:03 Sodium 137 Potassium 3.3 L D Chloride 102.8 Carbon Dioxide 23 Anion Gap 15 BUN 7 Creatinine 0.9 Estimated GFR > 60 BUN/Creatinine Ratio 8 Glucose 242 H POC Glucose 246 H 206 H Calcium 7.4 L 06/09/18 06/09/18 06/09/18 06:06 10:07 13:34 Sodium Potassium Chloride Carbon Dioxide Anion Gap BUN Creatinine Estimated GFR BUN/Creatinine Ratio Glucose POC Glucose 187 H 276 H 333 H Calcium 06/09/18 06/09/18 17:28 Unknown Sodium 139 Potassium 3.2 L Chloride 102.6 Carbon Dioxide 24 Anion Gap 16 BUN 7 Creatinine 0.8 Estimated GFR > 60 BUN/Creatinine Ratio 9 Glucose 189 H POC Glucose 294 H Calcium 7.3 L Assessment and Plan Pt seen and examined. Agree with note above. clinically doing better. Had colonoscopy last year without signs of IBD or other significant pathology. f/u ct scan tomorrow.
[2018-06-09] MEDS ORDERED: K-DUR PO ONE (12:18)
--- NOTE | 2018-06-09 12:22 | Progress Note ---
Assessment and Plan Assessment and plan: Patient is a 72 yo woman with a history of COPD, CKD 3, AOCD, hypertension, IDDM and prior right foot amputation due to PAD who presents with abd pains. She thinks she is obstructed * CT abd/pelvis wo contrast IMPRESSION: Findings concerning for mild colitis involving the cecum and ascending colon. There is mild dilatation of fat stranding along the appendix concerning for secondary to inflammation of the appendix related to adjacent colitis. Mild primary inflammation of the appendix with reactive colitis is less likely. No free air or abscess. No bowel obstruction. Stable nonobstructive right renal calculus. No hydronephrosis bilaterally. Stable left left adrenal adenoma. -Bacterial colitis: advance diet per Surgery, iv abx, ivf -?Appendicitis: Gen. Surgery is following, -Sepsis due to above, poa: follow culture, follow wbc and treat with abx -DM type 2 on insulin uncontrolled hyperglycemia: ssi, ada diet, accuchecks -Right hip pains: ordered hip xray and pt/ot eval History Interval history: Patient was seen and examined. Follow-up on current diagnosis of colitis. Overnight uneventful. Patient denies any chest pain, shortness breath, or severe headaches. Imaging, nursing note, chart, labs and old chart reviewed. Discussed with patient. Hospitalist Physical - Physical exam Narrative exam: Gen: WDWN, NAD, Awake, Alert, Orientated HEENT: NCAT, EOMI, PERRL, OP Clear Neck: supple, no adenopathy, no thyromegaly, no JVD CVS/Heart: RRR, normal S1S2, pulses present bilaterally Chest/Lungs: CTA B, Symmetrical chest expansion, good air entry bilaterally GI/Abdomen: soft, right sided tenderness good bowel sounds, no guarding or rebound /Bladder: no suprapubic tenderness, no CVA or paraspinal tenderness Extermity/Skin: no c/c/e, no obvious rash MSK: FROM x 4 Neuro: CN 2-12 grossly intact, no new focal deficits Psych: calm - Constitutional Vitals: Temp Pulse Resp BP Pulse Ox 97.8 F 92 H 18 132/63 98 06/09/18 08:01 06/09/18 10:00 06/09/18 08:01 06/09/18 08:01 06/09/18 08:01 Results - Labs CBC & Chem 7: 06/08/18 04:00 06/09/18 Unknown Labs: Laboratory Last Values WBC 8.9 K/mm3 (4.5-11.0) 06/08/18 04:00 RBC 3.32 M/mm3 (3.65-5.03) L 06/08/18 04:00 Hgb 9.9 gm/dl (10.1-14.3) L 06/08/18 04:00 Hct 28.7 % (30.3-42.9) L 06/08/18 04:00 MCV 87 fl (79-97) 06/08/18 04:00 MCH 30 pg (28-32) 06/08/18 04:00 MCHC 34 % (30-34) 06/08/18 04:00 RDW 13.8 % (13.2-15.2) 06/08/18 04:00 Plt Count 393 K/mm3 (140-440) 06/08/18 04:00 Lymph % (Auto) 15.1 % (13.4-35.0) 06/08/18 04:00 [place] % (Auto) 8.7 % (0.0-7.3) H 06/08/18 04:00 Eos % (Auto) 2.8 % (0.0-4.3) 06/08/18 04:00 Baso % (Auto) 0.4 % (0.0-1.8) 06/08/18 04:00 Lymph # 1.3 K/mm3 (1.2-5.4) 06/08/18 04:00 [place] # 0.8 K/mm3 (0.0-0.8) 06/08/18 04:00 Eos # 0.2 K/mm3 (0.0-0.4) 06/08/18 04:00 Baso # 0.0 K/mm3 (0.0-0.1) 06/08/18 04:00 Seg Neutrophils % 73.0 % (40.0-70.0) H 06/08/18 04:00 Seg Neutrophils # 6.5 K/mm3 (1.8-7.7) 06/08/18 04:00 VBG pH 7.356 (7.320-7.420) 06/02/18 20:59 Sodium 139 mmol/L (137-145) 06/09/18 Unknown Potassium 3.2 mmol/L (3.6-5.0) L 06/09/18 Unknown Chloride 102.6 mmol/L (98-107) 06/09/18 Unknown Carbon Dioxide 24 mmol/L (22-30) 06/09/18 Unknown Anion Gap 16 mmol/L 06/09/18 Unknown BUN 7 mg/dL (7-17) 06/09/18 Unknown Creatinine 0.8 mg/dL (0.7-1.2) 06/09/18 Unknown Estimated GFR > 60 ml/min 06/09/18 Unknown BUN/Creatinine Ratio 9 % 06/09/18 Unknown Glucose 189 mg/dL (65-100) H 06/09/18 Unknown POC Glucose 276 (70-105) H 06/09/18 10:07 Lactic Acid 0.90 mmol/L (0.7-2.0) 06/02/18 22:54 Calcium 7.3 mg/dL (8.4-10.2) L 06/09/18 Unknown Magnesium 1.70 mg/dL (1.7-2.3) 06/02/18 22:54 Total Bilirubin < 0.20 mg/dL (0.1-1.2) 06/08/18 04:00 AST 13 units/L (5-40) 06/08/18 04:00 ALT 6 units/L (7-56) L 06/08/18 04:00 Alkaline Phosphatase 70 units/L (35-129) 06/08/18 04:00 Total Creatine Kinase 39 units/L (30-135) 06/02/18 22:54 Total Protein 6.4 g/dL (6.3-8.2) 06/08/18 04:00 Albumin 2.7 g/dL (3.9-5) L 06/08/18 04:00 Albumin/Globulin Ratio 0.7 % 06/08/18 04:00 Urine Color Yellow (Yellow) 06/02/18 23:23 Urine Turbidity Clear (Clear) 06/02/18 23:23 Urine pH 5.0 (5.0-7.0) 06/02/18 23:23 Ur Specific [place] 1.008 (1.003-1.030) 06/02/18 23:23 Urine Protein 30 mg/dl mg/dL (Negative) 06/02/18 23:23 Urine Glucose (UA) 50 mg/dL (Negative) 06/02/18 23:23 Urine Ketones Neg mg/dL (Negative) 06/02/18 23: Urine Blood Sm (Negative) 06/02/18 23: Urine Nitrite Neg (Negative) 06/02/18 23:23 Urine Bilirubin Neg (Negative) 06/02/18 23:23 Urine Urobilinogen < 2.0 mg/dL (<2.0) 06/02/18 23: Ur Leukocyte Esterase Mod (Negative) 06/02/18 23: Urine WBC (Auto) 55.0 /HPF (0.0-6.0) H 06/02/18 23: Urine RBC (Auto) 4.0 /HPF (0.0-6.0) 06/02/18 23:23 Urine Bacteria (Auto) 1+ /HPF (Negative) 06/02/18 23:23 Urine Mucus Few /HPF 06/02/18 23:23 Influenza A (Rapid) Negative (Negative) 06/02/18 23:20 Influenza B (Rapid) Negative (Negative) 06/02/18 23:20
--- NOTE | 2018-06-09 13:20 | XRay Report ---
RIGHT HIP, 2 views: History: Right hip pain The bony architecture is intact without evidence of fracture or dislocation. No significant soft tissue abnormality is seen. IMPRESSION: Unremarkable right hip.
--- NOTE | 2018-06-09 13:24 | Progress Note ---
Assessment and Plan Pt, no GI compl. c/o R hip pain montserrat diet without incident. Abd soft, non tender surgically stable going down for hip x-rays will order f/u CT of cecal inflammation for am Selected Entries 06/09/18 06/09/18 08:01 10:00 Temperature 97.8 F Pulse Rate [ 92 H From Monitor] Respiratory 18 Rate Blood Pressure 132/63 Laboratory Tests 06/09/18 Unknown Potassium 3.2 L Objective Vital Signs - 12hr 06/09/18 06/09/18 06/09/18 02:00 02:43 08:01 Temperature 98.6 F 97.8 F Pulse Rate 82 92 H Pulse Rate [ From Monitor] Respiratory 18 18 Rate Blood Pressure 135/73 132/63 O2 Sat by Pulse 98 98 Oximetry 06/09/18 10:00 Temperature Pulse Rate Pulse Rate [ 92 H From Monitor] Respiratory Rate Blood Pressure O2 Sat by Pulse Oximetry - Labs 06/08/18 04:00 06/09/18 Unknown Diabetes panel 06/08/18 06/08/18 06/09/18 Range/Units 14:12 Unknown Unknown Sodium 139 137 139 (137-145) mmol/L Potassium 4.2 D 3.3 L D 3.2 L (3.6-5.0) mmol/L Chloride 104.2 102.8 102.6 (98-107) mmol/L Carbon Dioxide 22 23 24 (22-30) mmol/L BUN 7 7 7 (7-17) mg/dL Creatinine 0.9 0.9 0.8 (0.7-1.2) mg/dL Glucose 409 H 242 H 189 H (65-100) mg/dL Calcium 7.4 L 7.4 L 7.3 L (8.4-10.2) mg/dL Calcium panel 06/08/18 06/08/18 06/09/18 Range/Units 14:12 Unknown Unknown Calcium 7.4 L 7.4 L 7.3 L (8.4-10.2) mg/dL Pituitary panel 06/08/18 06/08/18 06/09/18 Range/Units 14:12 Unknown Unknown Sodium 139 137 139 (137-145) mmol/L Potassium 4.2 D 3.3 L D 3.2 L (3.6-5.0) mmol/L Chloride 104.2 102.8 102.6 (98-107) mmol/L Carbon Dioxide 22 23 24 (22-30) mmol/L BUN 7 7 7 (7-17) mg/dL Creatinine 0.9 0.9 0.8 (0.7-1.2) mg/dL Glucose 409 H 242 H 189 H (65-100) mg/dL Calcium 7.4 L 7.4 L 7.3 L (8.4-10.2) mg/dL Adrenal panel 06/08/18 06/08/18 06/09/18 Range/Units 14:12 Unknown Unknown Sodium 139 137 139 (137-145) mmol/L Potassium 4.2 D 3.3 L D 3.2 L (3.6-5.0) mmol/L Chloride 104.2 102.8 102.6 (98-107) mmol/L Carbon Dioxide 22 23 24 (22-30) mmol/L BUN 7 7 7 (7-17) mg/dL Creatinine 0.9 0.9 0.8 (0.7-1.2) mg/dL Glucose 409 H 242 H 189 H (65-100) mg/dL Calcium 7.4 L 7.4 L 7.3 L (8.4-10.2) mg/dL
[2018-06-10] MEDS: HumuLIN R SUB-Q SCH ×6 (01:06→22:26)
[2018-06-10] MEDS: PROTONIX PO SCH (09:45)
--- NOTE | 2018-06-10 11:35 | Gastroenterology Progress Note ---
<RUSTY SALDAÑA - Last Filed: 06/10/18 11:33> Assessment and Plan 1.colitis -afebrile -WBC WNL -stool culture negative -abd CT showed mild colitis involving the cecum and ascending colon with inflammation of the appendix related to adjacent colitis (no bowel obstruction) -surgery following -last colonoscopy 09/2017 showed diverticulosis, otherwise unremarkable -etiology unclear-possibly infectious vs inflammatory vs other -clinically patient's abd pain has improved. Diarrhea resolved. No N/V. Tolerating diet. -no plans for scope at this time (up to date on colonoscopy as above) -continue antibiotics and supportive care -repeat CT pending for today per surgery- if results show improvement, okay to be d/c per GI standpoint with follow up in clinic in ~2-3 weeks Subjective Date of service: 06/10/18 Principal diagnosis: colonoscopy in near future Interval history: Patient resting in bed w/o acute distress. Reports feeling better with abd pain improved and diarrhea now resolved. No N/V. Tolerating diet. Objective - Constitutional Vitals: Temp Pulse Resp BP Pulse Ox 98.0 F 92 H 18 137/59 98 06/10/18 07:51 06/10/18 07:51 06/10/18 07:51 06/10/18 07:51 06/10/18 07:51 General appearance: no acute distress - Respiratory Respiratory: bilateral: CTA - Cardiovascular Rhythm: regular Heart Sounds: Present: S1 & S2 - Gastrointestinal General gastrointestinal: Present: soft, non-tender, non-distended, normal bowel sounds - Labs CBC & Chem 7: 06/08/18 04:00 06/09/18 Unknown Labs: Laboratory Results - last 24 hr 06/09/18 06/09/18 06/09/18 13:34 17:28 21:59 POC Glucose 333 H 294 H 259 H 06/10/18 06/10/18 06/10/18 00:57 02:30 05:15 POC Glucose 181 H 148 H 118 H 06/10/18 09:42 POC Glucose 239 H <GENEVIEVE AERNAS - Last Filed: 06/10/18 16:59> Assessment and Plan pt seen and examined. agree with note above. clinically doing better and ct reports improvement in inflammatory changes of colon. Will sign off, please call as needed. Objective - Constitutional Vitals: Temp Pulse Resp BP Pulse Ox 98.0 F 92 H 18 137/59 98 06/10/18 07:51 06/10/18 10:00 06/10/18 10:00 06/10/18 07:51 06/10/18 10:00 - Labs CBC & Chem 7: 06/08/18 04:00 06/09/18 Unknown Labs: Laboratory Results - last 24 hr 06/09/18 06/09/18 06/10/18 17:28 21:59 00:57 POC Glucose 294 H 259 H 181 H 06/10/18 06/10/18 06/10/18 02:30 05:15 09:42 POC Glucose 148 H 118 H 239 H 06/10/18 13:56 POC Glucose 363 H
--- NOTE | 2018-06-10 12:15 | Cat Scan Report ---
CT ABDOMEN PELVIS WITH CONTRAST: HISTORY: Followup cecal colitis. COMPARISON: 06/02/18. TECHNIQUE: Helical CT in 1.25mm intervals following IV contrast. Sagittal and coronal reconstructions. FINDINGS: Inflammation in the right lower quadrant has nearly resolved since the previous exam. Gas is identified in the appendix. No new inflammatory changes or abscess is appreciated. The gallbladder has been surgically removed. The liver, pancreas, spleen, adrenal glands and pelvic viscera are unremarkable. The 1 cm calyceal stone is identified in the superior right kidney which is unchanged. Otherwise the kidneys and collecting systems are within normal limits. The lung bases are clear. Normal heart size. Mild thoracolumbar spondylosis is noted. IMPRESSION: Right lower quadrant inflammatory changes have resolved or nearly resolved since 06/02/18. See above.
[2018-06-10] MEDS: NACL 0.9% 1000 ML 1,000 ML IV SCH (13:07)
--- NOTE | 2018-06-10 13:27 | Progress Note ---
Assessment and Plan Pt status quo. montserrat diet without compl Abd soft, non tender f/u CT RLQ inflammatory changes almost completely resolved surgically stable may d/c on po antibiotics and high fiber diet from surg perspective f/u this Saturday in office will also need colonoscopy as per GI as out pt in near future once acute process completely resolves. Selected Entries 06/09/18 06/10/18 06/10/18 20:00 07:51 10:00 Temperature 98.0 F Pulse Rate 92 H Respiratory 18 Rate Blood Pressure 136/64 [Left] Objective Vital Signs - 12hr 06/10/18 06/10/18 06/10/18 02:39 07:51 10:00 Temperature 97.6 F 98.0 F Pulse Rate 79 92 H Pulse Rate [ 92 H From Monitor] Respiratory 20 18 18 Rate Blood Pressure 123/51 137/59 O2 Sat by Pulse 98 98 98 Oximetry - Labs 06/08/18 04:00 06/09/18 Unknown
--- NOTE | 2018-06-10 13:57 | Progress Note ---
Assessment and Plan Assessment and plan: Patient is a 72 yo woman with a history of COPD, CKD 3, AOCD, hypertension, IDDM and prior right foot amputation due to PAD who presents with abd pains. * CT abd/pelvis wo contrast IMPRESSION: Findings concerning for mild colitis involving the cecum and ascending colon. There is mild dilatation of fat st randing along the appendix concerning for secondary to inflammation of the appendix related to adjacent colitis. Mild primary inflammation of the appendix with reactive colitis is less likely. No free air or abscess. No bowel obstruction. Stable nonobstructive right renal calculus. No hydronephrosis bilaterally. Stable left left adrenal adenoma. -Bacterial colitis: advance diet per Surgery, iv abx, ivf -?Appendicitis: Gen. Surgery is following, -Sepsis due to above, poa: follow culture, follow wbc and treat with abx -DM type 2 on insulin uncontrolled hyperglycemia: ssi, ada diet, accuchecks -Right hip pains: ordered hip xray and pt/ot eval History Interval history: Patient was seen and examined. Follow-up on current diagnosis of colitis. Overnight uneventful. Patient denies any chest pain, shortness breath, or severe headaches. Imaging, nursing note, chart, labs and old chart reviewed. Discussed with patient. Hospitalist Physical - Physical exam Narrative exam: Gen: WDWN, NAD, Awake, Alert, Orientated HEENT: NCAT, EOMI, PERRL, OP Clear Neck: supple, no adenopathy, no thyromegaly, no JVD CVS/Heart: RRR, normal S1S2, pulses present bilaterally Chest/Lungs: CTA B, Symmetrical chest expansion, good air entry bilaterally GI/Abdomen: soft, right sided tenderness good bowel sounds, no guarding or rebound /Bladder: no suprapubic tenderness, no CVA or paraspinal tenderness Extermity/Skin: no c/c/e, no obvious rash MSK: FROM x 4 Neuro: CN 2-12 grossly intact, no new focal deficits Psych: calm - Constitutional Vitals: Temp Pulse Resp BP Pulse Ox 98.0 F 92 H 18 137/59 98 06/10/18 07:51 06/10/18 10:00 06/10/18 10:00 06/10/18 07:51 06/10/18 10:00 Results - Labs CBC & Chem 7: 06/08/18 04:00 06/09/18 Unknown Labs: Laboratory Last Values WBC 8.9 K/mm3 (4.5-11.0) 06/08/18 04:00 RBC 3.32 M/mm3 (3.65-5.03) L 06/08/18 04:00 Hgb 9.9 gm/dl (10.1-14.3) L 06/08/18 04:00 Hct 28.7 % (30.3-42.9) L 06/08/18 04:00 MCV 87 fl (79-97) 06/08/18 04:00 MCH 30 pg (28-32) 06/08/18 04:00 MCHC 34 % (30-34) 06/08/18 04:00 RDW 13.8 % (13.2-15.2) 06/08/18 04:00 Plt Count 393 K/mm3 (140-440) 06/08/18 04:00 Lymph % (Auto) 15.1 % (13.4-35.0) 06/08/18 04:00 [place] % (Auto) 8.7 % (0.0-7.3) H 06/08/18 04:00 Eos % (Auto) 2.8 % (0.0-4.3) 06/08/18 04:00 Baso % (Auto) 0.4 % (0.0-1.8) 06/08/18 04:00 Lymph # 1.3 K/mm3 (1.2-5.4) 06/08/18 04:00 [place] # 0.8 K/mm3 (0.0-0.8) 06/08/18 04:00 Eos # 0.2 K/mm3 (0.0-0.4) 06/08/18 04:00 Baso # 0.0 K/mm3 (0.0-0.1) 06/08/18 04:00 Seg Neutrophils % 73.0 % (40.0-70.0) H 06/08/18 04:00 Seg Neutrophils # 6.5 K/mm3 (1.8-7.7) 06/08/18 04:00 VBG pH 7.356 (7.320-7.420) 06/02/18 20:59 Sodium 139 mmol/L (137-145) 06/09/18 Unknown Potassium 3.2 mmol/L (3.6-5.0) L 06/09/18 Unknown Chloride 102.6 mmol/L (98-107) 06/09/18 Unknown Carbon Dioxide 24 mmol/L (22-30) 06/09/18 Unknown Anion Gap 16 mmol/L 06/09/18 Unknown BUN 7 mg/dL (7-17) 06/09/18 Unknown Creatinine 0.8 mg/dL (0.7-1.2) 06/09/18 Unknown Estimated GFR > 60 ml/min 06/09/18 Unknown BUN/Creatinine Ratio 9 % 06/09/18 Unknown Glucose 189 mg/dL (65-100) H 06/09/18 Unknown POC Glucose 239 (70-105) H 06/10/18 09:42 Lactic Acid 0.90 mmol/L (0.7-2.0) 06/02/18 22:54 Calcium 7.3 mg/dL (8.4-10.2) L 06/09/18 Unknown Magnesium 1.70 mg/dL (1.7-2.3) 06/02/18 22:54 Total Bilirubin < 0.20 mg/dL (0.1-1.2) 06/08/18 04:00 AST 13 units/L (5-40) 06/08/18 04:00 ALT 6 units/L (7-56) L 06/08/18 04:00 Alkaline Phosphatase 70 units/L (35-129) 06/08/18 04:00 Total Creatine Kinase 39 units/L (30-135) 06/02/18 22:54 Total Protein 6.4 g/dL (6.3-8.2) 06/08/18 04:00 Albumin 2.7 g/dL (3.9-5) L 06/08/18 04:00 Albumin/Globulin Ratio 0.7 % 06/08/18 04:00 Urine Color Yellow (Yellow) 06/02/18 23:23 Urine Turbidity Clear (Clear) 06/02/18 23:23 Urine pH 5.0 (5.0-7.0) 06/02/18 23:23 Ur Specific [place] 1.008 (1.003-1.030) 06/02/18 23:23 Urine Protein 30 mg/dl mg/dL (Negative) 06/02/18 23:23 Urine Glucose (UA) 50 mg/dL (Negative) 06/02/18 23:23 Urine Ketones Neg mg/dL (Negative) 06/02/18 23:23 Urine Blood Sm (Negative) 06/02/18 23:23 Urine Nitrite Neg (Negative) 06/02/18 23:23 Urine Bilirubin Neg (Negative) 06/02/18 23:23 Urine Urobilinogen < 2.0 mg/dL (<2.0) 06/02/18 23:23 Ur Leukocyte Esterase Mod (Negative) 06/02/18 23:23 Urine WBC (Auto) 55.0 /HPF (0.0-6.0) H 06/02/18 23:23 Urine RBC (Auto) 4.0 /HPF (0.0-6.0) 06/02/18 23:23 Urine Bacteria (Auto) 1+ /HPF (Negative) 06/02/18 23:23 Urine Mucus Few /HPF 06/02/18 23:23 Influenza A (Rapid) Negative (Negative) 06/02/18 23:20 Influenza B (Rapid) Negative (Negative) 06/02/18 23:20
[2018-06-10] MEDS: MORPHINE IV PRN (22:39)
[2018-06-11] MEDS: HumuLIN R SUB-Q SCH ×3 (02:46→09:48)
[2018-06-11 08:25] VITALS: BP 121/66
[2018-06-11] MEDS: LEVAQUIN PO SCH (09:07)
[2018-06-11] MEDS: PROTONIX PO SCH (09:07)
--- NOTE | 2018-06-11 09:15 | Progress Note ---
Assessment and Plan Pt feeling well without compl today Abd soft, non tender surgically stable for d/c will follow prn RTO this Saturday Selected Entries 06/11/18 06/11/18 07:36 08:26 Temperature 97.9 F Pulse Rate [ 86 From Monitor] Blood Pressure 121/66 Objective Vital Signs - 12hr 06/11/18 06/11/18 06/11/18 02:00 07:36 08:26 Temperature 98.3 F 97.9 F Pulse Rate 83 86 Pulse Rate [ 86 From Monitor] Respiratory 18 20 20 Rate Blood Pressure 121/66 Blood Pressure 134/68 [Left] O2 Sat by Pulse 95 99 99 Oximetry - Labs 06/08/18 04:00 06/09/18 Unknown
--- NOTE | 2018-06-11 12:11 | Discharge Summary ---
Providers - Providers Date of Admission: 06/03/18 00:58 Date of discharge: 06/11/18 Attending physician: AKOSUA SHAFER 06/03/18 00:32 Consult to Physician [CONS] Urgent Comment: Dr. Mcgrath spoke with Dr. Coello @ 0038 Consulting Provider: JASON COELLO Physician Instructions: Reason For Exam: colitis vs appendicitis 06/07/18 09:18 Consult to Physician [CONS] Routine Comment: called answ. serv./yuly Consulting Provider: DAGO ESCALANTE Physician Instructions: Reason For Exam: colonoscopy in near future 06/09/18 12:18 Consult to Dietitian/Nutrition [CONS] Routine Physician Instructions: Reason For Exam: Reason for Consult: Malnutrition 06/09/18 12:21 Occupational Therapy Evaluate and Treat [CONS] Routine Comment: Reason For Exam: ADLs evaluation Physical Therapy Evaluation and Treat [CONS] Routine Comment: Reason For Exam: gait evaluation/ambulatory dysfunction Primary care physician: WIND TURBINE [employer]ICAL ENGINEER Hospitalization Condition: Stable Hospital course: Patient is a 72 yo woman with a history of COPD, CKD 3, AOCD, hypertension, IDDM and prior right foot amputation due to PAD who presents with abd pains. * CT abd/pelvis wo contrast IMPRESSION: Findings concerning for mild colitis involving the cecum and ascending colon. There is mild dilatation of fat stranding along the appendix concerning for secondary to inflammation of the appendix related to adjacent colitis. Mild primary inflammation of the appendix with reactive colitis is less likely. No free air or abscess. No bowel obstruction. Stable nonobstructive right renal calculus. No hydronephrosis bilaterally. Stable left left adrenal adenoma. -Bacterial colitis: advance diet per Surgery, -?Appendicitis: Gen. Surgery is following, -Sepsis due to above, poa: follow culture, follow wbc and treat with abx -DM type 2 on insulin uncontrolled hyperglycemia: ssi, ada diet, accuchecks -Right hip pains: ordered hip xray and pt/ot eval Disposition: DC/TX-06 HOME [facility] Time spent for discharge: 34 minutes Core Measure Documentation - Palliative Care Palliative Care/ Comfort Measures: Not Applicable - Core Measures Any of the following diagnoses?: none - VTE Discharge Requirements Deep Vein Thrombosis/Pulmonary Embolism Present on Admission: No Has pt received <5 days of overlap therapy or INR<2.0: No Anticoagulant overlap therapy prescribed at discharge: No Contraindication No Overlap Therapy order at DC: Not Indicated Exam - Physical Exam Narrative exam: Gen: WDWN, NAD, Awake, Alert, Orientated HEENT: NCAT, EOMI, PERRL, OP Clear Neck: supple, no adenopathy, no thyromegaly, no JVD CVS/Heart: RRR, normal S1S2, pulses present bilaterally Chest/Lungs: CTA B, Symmetrical chest expansion, good air entry bilaterally GI/Abdomen: soft, right sided tenderness good bowel sounds, no guarding or rebound /Bladder: no suprapubic tenderness, no CVA or paraspinal tenderness Extermity/Skin: no c/c/e, no obvious rash MSK: FROM x 4 Neuro: CN 2-12 grossly intact, no new focal deficits Psych: calm - Constitutional Vitals: Temp Pulse Resp BP Pulse Ox 97.9 F 86 20 121/66 99 06/11/18 07:36 06/11/18 10:00 06/11/18 10:00 06/11/18 07:36 06/11/18 10:00 Plan Activity: up only with assistance, fall precautions, other (no strenous activity unless cleared by PCP) Diet: low salt, diabetic Special Instructions: record daily BP diary, record blood sugar diary Follow up with: PRIMARY CARE, [Primary Care Provider] - 3-5 Days JASON COELLO MD [Staff Physician] - 7 Days DAGO ESCALANTE MD [Staff Physician] - 7 Days Prescriptions: Zolpidem [Ambien] 5 mg PO QHS PRN #5 tablet PRN Reason: Sleep metroNIDAZOLE [Flagyl] 500 mg PO Q8HR #9 tablet oxyCODONE /ACETAMINOPHEN [Percocet 5/325 mg] 1 tab PO Q6H PRN #14 tablet PRN Reason: Pain, Moderate (4-6) levoFLOXacin [Levaquin TAB] 750 mg PO Q48HR 4 Days tablet
== END 2018-06-11 12:25 | disposition home health service (06) | DRG 871 ==
LOC: ED 20:24 → 2B-ACE 06-03 00:58
PROVIDERS: ADMIT Internal Medicine; ATTEND Internal Medicine
DX: A41.9 Sepsis, unspecified organism (principal); N17.0 Acute kidney failure with tubular necrosis; A04.9 Bacterial intestinal infection, unspecified; I13.0 Hypertensive heart and chronic kidney disease with heart failure and stage 1 through stage 4 chronic kidney disease, or unspecified chronic kidney disease; E11.65 Type 2 diabetes mellitus with hyperglycemia; E86.0 Dehydration; K37 Unspecified appendicitis; N18.3 Chronic kidney disease, stage 3 (moderate); E11.22 Type 2 diabetes mellitus with diabetic chronic kidney disease; E11.51 Type 2 diabetes mellitus with diabetic peripheral angiopathy without gangrene; F17.210 Nicotine dependence, cigarettes, uncomplicated; I50.9 Heart failure, unspecified; J44.9 Chronic obstructive pulmonary disease, unspecified; M25.551 Pain in right hip; Z79.4 Long term (current) use of insulin; Z89.431 Acquired absence of right foot; Z90.49 Acquired absence of other specified parts of digestive tract; Z89.422 Acquired absence of other left toe(s); Z89.421 Acquired absence of other right toe(s); Z88.0 Allergy status to penicillin; Z72.89 Other problems related to lifestyle
CPT/HCPCS: 36415; 71045; 74176; 74177; 80048; 80053; 81001; 82140; 82550; 82805; 82962; 83735; 85025; 87040; 87045; 87400; 93005; 93010; 96374; 96375; 99285; G0378; C9113; J1815; J1956; J2270; J2405; J3010; J7030; Q9967

== ENCOUNTER 2020-09-05 10:16 | Outpatient (CLI) | payer MEDICARE ==
[2020-09-05] MEDS ORDERED: LIDOCAINE (4%) 40 MG/ML TOPICAL SOLN 50 ML BOTTLE TP ONE (14:56)
== END 2020-09-05 10:17 | disposition home or self-care (01) ==
LOC: WOUND 10:16
PROVIDERS: ATTEND Surgery
DX: T87.89 Other complications of amputation stump (principal); I70.235 Atherosclerosis of native arteries of right leg with ulceration of other part of foot; E11.621 Type 2 diabetes mellitus with foot ulcer; L97.512 Non-pressure chronic ulcer of other part of right foot with fat layer exposed; I70.232 Atherosclerosis of native arteries of right leg with ulceration of calf; E11.622 Type 2 diabetes mellitus with other skin ulcer; L97.812 Non-pressure chronic ulcer of other part of right lower leg with fat layer exposed; S11.90XA Unspecified open wound of unspecified part of neck, initial encounter; S31.829A Unspecified open wound of left buttock, initial encounter; I10 Essential (primary) hypertension; F17.290 Nicotine dependence, other tobacco product, uncomplicated; Z79.4 Long term (current) use of insulin; Z79.82 Long term (current) use of aspirin; X58.XXXA Exposure to other specified factors, initial encounter; Y93.89 Activity, other specified; Y92.89 Other specified places as the place of occurrence of the external cause; Y99.8 Other external cause status; Y83.5 Amputation of limb(s) as the cause of abnormal reaction of the patient, or of later complication, without mention of misadventure at the time of the procedure
CPT/HCPCS: 11042; 11045; G0463; 99215

== ENCOUNTER 2020-09-12 10:52 | Outpatient (CLI) | payer MEDICARE ==
[2020-09-12] MEDS ORDERED: LIDOCAINE (4%) 40 MG/ML TOPICAL SOLN 50 ML BOTTLE TP ONE (17:23)
== END 2020-09-12 10:53 | disposition home or self-care (01) ==
LOC: WOUND 10:52
PROVIDERS: ATTEND Surgery
DX: T87.89 Other complications of amputation stump (principal); E11.621 Type 2 diabetes mellitus with foot ulcer; I70.235 Atherosclerosis of native arteries of right leg with ulceration of other part of foot; L97.512 Non-pressure chronic ulcer of other part of right foot with fat layer exposed; I70.234 Atherosclerosis of native arteries of right leg with ulceration of heel and midfoot; L97.412 Non-pressure chronic ulcer of right heel and midfoot with fat layer exposed; E11.622 Type 2 diabetes mellitus with other skin ulcer; I70.238 Atherosclerosis of native arteries of right leg with ulceration of other part of lower leg; L97.812 Non-pressure chronic ulcer of other part of right lower leg with fat layer exposed; I70.232 Atherosclerosis of native arteries of right leg with ulceration of calf; L97.212 Non-pressure chronic ulcer of right calf with fat layer exposed; S11.90XD Unspecified open wound of unspecified part of neck, subsequent encounter; S31.829D Unspecified open wound of left buttock, subsequent encounter; I10 Essential (primary) hypertension; F17.290 Nicotine dependence, other tobacco product, uncomplicated; Z79.4 Long term (current) use of insulin; Z79.82 Long term (current) use of aspirin; X58.XXXD Exposure to other specified factors, subsequent encounter

== ENCOUNTER 2020-09-19 10:54 | Outpatient (CLI) | payer MEDICARE ==
[2020-09-19] MEDS ORDERED: LIDOCAINE (4%) 40 MG/ML TOPICAL SOLN 50 ML BOTTLE TP ONE (12:00)
[2020-09-19] MEDS ORDERED: SODIUM CHLORIDE 0.9% IRR 500 ML BOTTLE IR ONE (14:05)
== END 2020-09-19 10:55 | disposition home or self-care (01) ==
LOC: WOUND 10:54
PROVIDERS: ATTEND Surgery
DX: T87.89 Other complications of amputation stump (principal); E11.621 Type 2 diabetes mellitus with foot ulcer; I70.235 Atherosclerosis of native arteries of right leg with ulceration of other part of foot; L97.515 Non-pressure chronic ulcer of other part of right foot with muscle involvement without evidence of necrosis; I70.234 Atherosclerosis of native arteries of right leg with ulceration of heel and midfoot; L97.412 Non-pressure chronic ulcer of right heel and midfoot with fat layer exposed; E11.622 Type 2 diabetes mellitus with other skin ulcer; I70.238 Atherosclerosis of native arteries of right leg with ulceration of other part of lower leg; L97.815 Non-pressure chronic ulcer of other part of right lower leg with muscle involvement without evidence of necrosis; I70.232 Atherosclerosis of native arteries of right leg with ulceration of calf; L97.212 Non-pressure chronic ulcer of right calf with fat layer exposed; S11.90XD Unspecified open wound of unspecified part of neck, subsequent encounter; S31.829D Unspecified open wound of left buttock, subsequent encounter; I10 Essential (primary) hypertension; F17.290 Nicotine dependence, other tobacco product, uncomplicated; Z79.4 Long term (current) use of insulin; Z79.82 Long term (current) use of aspirin; X58.XXXD Exposure to other specified factors, subsequent encounter

== ENCOUNTER 2020-09-26 13:48 | Outpatient (CLI) | payer MEDICARE ==
[2020-09-26] MEDS ORDERED: LIDOCAINE (4%) 40 MG/ML TOPICAL SOLN 50 ML BOTTLE TP ONE (13:55)
[2020-09-26] MEDS ORDERED: SODIUM CHLORIDE 0.9% IRR 500 ML BOTTLE IR ONE (14:47)
== END 2020-09-26 13:49 | disposition home or self-care (01) ==
LOC: WOUND 13:48
PROVIDERS: ATTEND Surgery
DX: T87.89 Other complications of amputation stump (principal); E11.621 Type 2 diabetes mellitus with foot ulcer; I70.235 Atherosclerosis of native arteries of right leg with ulceration of other part of foot; L97.515 Non-pressure chronic ulcer of other part of right foot with muscle involvement without evidence of necrosis; I70.234 Atherosclerosis of native arteries of right leg with ulceration of heel and midfoot; L97.412 Non-pressure chronic ulcer of right heel and midfoot with fat layer exposed; E11.622 Type 2 diabetes mellitus with other skin ulcer; I70.238 Atherosclerosis of native arteries of right leg with ulceration of other part of lower leg; L97.816 Non-pressure chronic ulcer of other part of right lower leg with bone involvement without evidence of necrosis; I70.232 Atherosclerosis of native arteries of right leg with ulceration of calf; L97.212 Non-pressure chronic ulcer of right calf with fat layer exposed; S11.90XD Unspecified open wound of unspecified part of neck, subsequent encounter; S31.829D Unspecified open wound of left buttock, subsequent encounter; I10 Essential (primary) hypertension; F17.290 Nicotine dependence, other tobacco product, uncomplicated; Z79.4 Long term (current) use of insulin; Z79.82 Long term (current) use of aspirin; X58.XXXD Exposure to other specified factors, subsequent encounter

== ENCOUNTER 2020-10-04 10:16 | Inpatient (IN) | payer MEDICARE ==
[2020-10-04] MEDS ORDERED: CLINDAMYCIN 600 MG/50 mL 600 MG/50 ML BAG IV ONE (10:39)
[2020-10-04] MEDS ORDERED: KETOROLAC 30 MG/1 ML INJ IV ONE (10:39)
[2020-10-04] MEDS ORDERED: MORPHINE 4 MG/1 ML INJ IV ONE (10:39)
--- NOTE | 2020-10-04 11:47 | XRay Report ---
Right foot radiograph, 4 views. HISTORY: Foot wound. COMPARISON: 08/04/2020. FINDINGS: There is worsening soft tissue ulceration at the dorsal/medial aspect of the great toe meta tarsal head. The dorsal aspect of the metatarsal head appears to be exposed. No gamaliel cortical destru ctive changes about the first toe. Amputation changes of the first and second toes again noted. Corti arsenio irregularity involving the second toe proximal phalanx distally. There are increasing erosive ngoc nges of the distal tuft of the third toe with suspected increased soft tissue ulceration in this josy on. There is also increased soft tissue gas about the fifth toe with worsening soft tissue ulceration and increasing lucency of the distal phalanx, concerning for osteomyelitis. There is also cortical i ndistinctness of the fifth toe proximal phalanx base. No evidence of fracture. IMPRESSION: Worsening soft tissue ulcerations involving the first, third, and fifth toes with finding s concerning for osteomyelitis of the first toe metatarsal head, distal aspect of the second toe prox imal phalanx, third toe distal phalanx, and fifth toe proximal and distal phalanges. Consider further evaluation with MRI. Signer Name: Arthur Rodriguez MD Signed: 10/04/2020 11:43 AM Workstation Name: [id number]
--- NOTE | 2020-10-04 12:07 | Emergency Department Report ---
ED Extremity Problem HPI - General Chief complaint: Extremity Injury, Lower Stated complaint: SORE ON LEG AND TOES Time Seen by Provider: 10/04/20 10:26 Source: patient, EMS Mode of arrival: Stretcher Limitations: Physical Limitation - History of Present Illness Initial comments: Patient is a 74-year-old F [place] female with past medical history of diabetes COPD and peripheral vascular disease who is presenting with worsening pain and discoloration of her right lower extremity. Patient had recent vascular surgery (08/04/20) to open some veins on her right lower extremity. Please see note below from our vascular surgery team. Patient states over the last week the fourth and fifth digit are now black and there is a great deal of pain. She has a chronic wound that she is doing wet-to-dry dressings on the right anterior calf. States this area has also worsened in size since her last visit. Originally started out as a bulla of the right lower calf but now is open wound except exposing tendon. Patient does have a history of chronic limb ischemia. Patient is having outpatient wet-to-dry dressings but she is continue to deteriorate. Patient though the right fourth and fifth toe are now gangrenous. Patient denies nausea vomiting or diarrhea. States the pain is 6 out of 10 in severity. She states she has had some subjective fevers and chills but has not taken a temperature. Patient Name: ТАТЬЯНА MURDOCK Date of : 1945 Patient Status: Inpatient Attending Provider: RUBI BOYKIN Date: 08/08/20 13:20 Initialization Date: 08/08/20 13:20 Assessment and Plan 74-year-old female with past medical history of diabetes, COPD, tobacco abuse and peripheral vascular disease who presented to the hospital with exacerbation of critical limb ischemia with acute on chronic ischemia. Patient's underlying arterial anatomy is severely compromised due to continued uncontrolled diabetes and prior smoking. Her long-term risk of limb loss is incredibly high. She has a diseased single-vessel peroneal runoff as her outflow vessel which does not appear to contribute significantly to the foot. Given her nonpalpable left pedal pulses, I suspect she also has compromised blood flow to her left lower extremity as well. Discussed with patient that she needs to attempt to control her uncontrolled diabetes. She understands. She will follow up with Dr. Uday Palomino, her PCP. She has a bulla of her right lower calf which may result in a chronic wound, and has deep tissue injury at the dorsum of her proximal foot which may also result in a chronic wound. These will need to be watched carefully and are currently the areas that cause her pain which is appropriate. Recommend wound care evaluation while inpatient. Continue aspirin, cilostazol, Eliquis, and Protonix. Explained importance of compliance with medication to the patient. She will likely need further revascularization as an outpatient to maintain her disease single-vessel runoff. Explained importance of follow-up with Dr. Angel to the patient. Follow-up with Dr. Angel in 1-2 weeks. Severity scale (0 -10): 5 - Related Data Home Medications Medication Instructions Recorded Confirmed Last Taken Lispro Insulin [HumaLOG] See Protocol SQ ACHS 09/13/17 08/09/20 Unknown Previous Rx's Medication Instructions Recorded Last Taken Type Pantoprazole [Protonix TAB] 40 mg PO DAILY #7 tablet 06/11/18 Unknown Rx Zolpidem [Ambien] 5 mg PO QHS PRN #5 tablet 06/11/18 Unknown Rx Pantoprazole [Protonix] 40 mg PO QDAY #90 tablet 08/07/20 Unknown Rx Apixaban [Eliquis] 2.5 mg PO Q12HR #60 tablet 08/09/20 Unknown Rx Aspirin EC [Halfprin EC] 81 mg PO QDAY #30 tablet 08/09/20 Unknown Rx Insulin NPH/Regular [NovoLIN 70/30] 25 unit SUB-Q BID 30 Days units 08/09/20 Unknown Rx cilostazoL [Pletal] 100 mg PO BID #60 tablet 08/09/20 Unknown Rx oxyCODONE /ACETAMINOPHEN [Percocet 1 tab PO Q6H PRN 2 Days #12 tablet 08/09/20 Unknown Rx 5/325 mg] Allergies Allergy/AdvReac Type Severity Reaction Status Date / Time Penicillins Allergy Unknown Verified 10/04/20 10:45 ED Review of Systems ROS: Stated complaint: SORE ON LEG AND TOES Other details as noted in HPI Comment: All other systems reviewed and negative ED Past Medical Hx - Past Medical History Hx Hypertension: Yes Hx Congestive Heart Failure: Yes Hx Diabetes: Yes Hx Renal Disease: Yes Hx COPD: Yes - Surgical History Hx Cholecystectomy: Yes Additional Surgical History: right great toe amputation. half index toe right foot amputation/ KNEE REPLACEMENT - Social History Smoking Status: Current Some Day Smoker Substance Use Type: None - Medications Home Medications: Home Medications Medication Instructions Recorded Confirmed Last Taken Type Lispro Insulin [HumaLOG] See Protocol SQ ACHS 09/13/17 08/09/20 Unknown History Pantoprazole [Protonix TAB] 40 mg PO DAILY #7 tablet 06/11/18 08/09/20 Unknown Rx Zolpidem [Ambien] 5 mg PO QHS PRN #5 tablet 06/11/18 08/09/20 Unknown Rx Pantoprazole [Protonix] 40 mg PO QDAY #90 tablet 08/07/20 Unknown Rx Apixaban [Eliquis] 2.5 mg PO Q12HR #60 tablet 08/09/20 Unknown Rx Aspirin EC [Halfprin EC] 81 mg PO QDAY #30 tablet 08/09/20 Unknown Rx Insulin NPH/Regular [NovoLIN 70/30] 25 unit SUB-Q BID 30 Days units 08/09/20 Unknown Rx cilostazoL [Pletal] 100 mg PO BID #60 tablet 08/09/20 Unknown Rx oxyCODONE /ACETAMINOPHEN [Percocet 1 tab PO Q6H PRN 2 Days #12 tablet 08/09/20 Unknown Rx 5/325 mg] ED Physical Exam - General Limitations: Physical Limitation General appearance: alert, in no apparent distress - Head Head exam: Present: atraumatic, normocephalic - Eye Eye exam: Present: normal appearance, PERRL, EOMI - ENT ENT exam: Present: mucous membranes moist - Neck Neck exam: Present: normal inspection - Respiratory Respiratory exam: Present: normal lung sounds bilaterally. Absent: respiratory distress, wheezes, rales, rhonchi - Cardiovascular Cardiovascular Exam: Present: regular rate, normal rhythm, normal heart sounds. Absent: systolic murmur, diastolic murmur, rubs, gallop - GI/Abdominal GI/Abdominal exam: Present: soft, normal bowel sounds. Absent: distended, tenderness, guarding, rebound - Extremities Exam Extremities exam: Present: normal inspection - Expanded Lower Extremity Exam Right 1 - Open wound described in the skin exam 2 - Fourth and fifth digit show dry gangrene. 3 - First digit was amputated when the patient was a child - Back Exam Back exam: Present: normal inspection - Neurological Exam Neurological exam: Present: alert, oriented X3 - Psychiatric Psychiatric exam: Present: normal affect, normal mood - Skin Skin exam: Present: warm, dry, intact, normal color, other (Patient with a large open wound with some good granulation tissues around the periphery in the right anterior calf. Please see pictures in the chart of this wound. There are exposed tendons. Some surface purulence centrally. There is a foul odor. ). Absent: rash ED Course Vital Signs 10/04/20 10/04/20 10/04/20 10:21 10:30 11:00 Temperature 98.1 F Pulse Rate 100 H 104 H Respiratory 18 15 Rate Blood Pressure 127/52 127/84 152/58 O2 Sat by Pulse 99 100 99 Oximetry 10/04/20 12:00 Temperature Pulse Rate 101 H Respiratory 17 Rate Blood Pressure 149/83 O2 Sat by Pulse 98 Oximetry - Reevaluation(s) Reevaluation #1: 10/04/20 12:59 Operative Report Operative Report: Exam: Right lower extremity revascularization procedure Clinical indication: Patient with a multiweek history of acute on chronic limb ischemia Date: 08/04/2020 Procedure: Following an explanation of the risks, benefits and alternatives; written informed consent was obtained. The patient was brought to the angiographic suite and placed in supine position on the examination table. Initial ultrasound evaluation of the left groin demonstrated a patent left common femoral artery. The patient's left groin was prepped and draped in the usual sterile fashion. 1% lidocaine was used for anesthesia. Under ultrasound guidance, the left common femoral artery was cannulated with a 7 cm 21-gauge needle. A 0.018 guidewire was advanced centrally. The needle was removed and a microsheath placed. The 0.018 guidewire was exchanged for a 0.035 guidewire and the micro sheath exchanged for a 5 [place] vascular sheath. An Omni Flush catheter was advanced over the guidewire to the distal abdominal aorta under fluoroscopy. The guidewire was removed. Contrast is injected. This demonstrates scattered atherosclerotic disease without hemodynamically significant stenosis involving the distal abdominal aorta, bilateral common iliac, bilateral external iliac arteries. The Omni Flush catheter and guidewire were then used to cross the bifurcation. The Omni Flush catheter was advanced to the right external iliac artery. Contrast was injected. This demonstrates the common femoral artery on the right is patent. The profunda is patent. The SFA is patent with multiple segmental stenoses. In the proximal to midportion of the SFA, there is a focal 90% stenosis. The distal SFA is occluded with reconstitution of the above-knee popliteal with P1 and P2 segments being patent. No named blood vessels are present distally. Other Omni Flush catheter was exchanged for a vertebral catheter and together t he catheter and guidewire were advanced through the proximal stenosis in the SFA and through the occluded portion of the distal SFA into the popliteal artery. Contrast was injected to document true luminal positioning. The 5 [place] sheath was exchanged over the guidewire for a 7 [place] 45 cm sheath with the tip of the sheath in the right common femoral artery. The vertebral catheter was advanced over the 0.035 guidewire and the 035 guidewire exchanged for a 6 mm spider wire which was advanced into the popliteal artery on the right. The vertebral catheter was removed. Atherectomy of the proximal lesion was performed using a [employer] atherectomy device. A total of 4 passes were made. Atherectomy distally was not possible secondary to the proximal nature of the lesion to the termination of the wire. A 6 [place] MPA glide cath was then advanced over the guidewire to the distal lesion. Several passes were made in an attempt to aspirate any residual thrombus. Angioplasty of the popliteal artery and SFA were then performed from distal to proximal using a 5 mm x 220 mm balloon. Angioplasty was performed at 8 map spheres for 1 minute. Treatment of the popliteal lesion was then performed using a 5 mm x 150 mm drug-coated balloon. Treatment of the proximal SFA lesions was treated using a 5 mm x 150 mm drug-coated balloon. Both balloons were insufflated to 8 clarita for 3 minutes. Post intervention imaging demonstrated reduction of the proximal stenosis to less than 20% with luminal flow throughout the distal occluded SFA. The flow was sluggish secondary to decreased outflow vessels. The vertebral catheter was advanced over the guidewire and the guidewire exchanged for a V 18 guidewire. The V 18 guidewire and catheter were then advanced down the midportion of the presumed location of the peroneal artery. The guidewire was removed. Contrast was injected. This demonstrates the peroneal artery is patent to the ankle. The proximal peroneal artery and tibioperoneal trunk are occluded with significant atherosclerotic disease. The MPA guide catheter was again advanced over the guidewire and used to aspirate any potential thrombus. Angioplasty was then performed from the peroneal artery into the popliteal artery using a 3 mm x 150 mm balloon insufflated to 6 clarita for 2 minutes. Post angioplasty imaging demonstrated brisk flow from the sheath insertion site into the peroneal artery. Imaging obtained to the foot demonstrated where the blood vessels on the foot w ith what may be some degree of vasospasm as well. At this point, the catheters, guidewires and sheaths were removed and hemostasis achieved in the left groin using an Angio-Seal arterial closure device. Pressure dressing was applied. The patient was placed on heparin drip and 1/2 inch of Nitropaste was placed on the patient's right foot. The patient tolerated the procedure well. There were no immediate postprocedure complications. Conscious sedation was performed under the guidance of radiologic nursing. Continuous cardiopulmonary monitoring was utilized. Impression: 1) Aortogram demonstrating scattered atherosclerotic disease without hemodynamically significant stenosis of the distal abdominal aorta, bilateral common iliac, bilateral external iliac arteries. 2) Right lower extremity angiogram with catheter placed in the right external iliac artery, right superficial femoral artery and right popliteal artery demonstrating multifocal stenosis with a focal 90% stenosis in the proximal SFA and occlusion of the distal SFA with reconstitution of the P1 and P2 segments of the popliteal artery. There is occlusion of all named vessels distal to this point. 3) Revascularization of the SFA using atherectomy and angioplasty. 4) Revascularization of the distal popliteal artery, tibioperoneal trunk and proximal peroneal artery using aspiration and angioplasty. ED Medical Decision Making - Lab Data Result diagrams: 10/04/20 11:36 10/04/20 11:36 - Medical Decision Making Patient to be admitted to the hospitalist service. Of also consulted Dr. Angel who did her revascularization of her right lower extremity 2 months ago. Critical care attestation.: If time is entered above; I have spent that time in minutes in the direct care of this critically ill patient, excluding procedure time. ED Disposition Clinical Impression: Diabetes, Claudication in peripheral vascular disease, Chronic wound of extremity, Gangrene, Osteomyelitis Disposition: DC-09 OP ADMIT IP TO THIS HOSP Is pt being admited?: Yes Does the pt Need Aspirin: No Condition: Stable Instructions: Diabetes Mellitus Type 2 in Adults (ED) Time of Disposition: 13:01
[2020-10-04 12:41] LABS: Basophils # (Auto) 0.1 K/mm3 (0.0-0.1); Basophils % (Auto) 1.3 % (0.0-1.8); Eosinophils # (Auto) 0.3 K/mm3 (0.0-0.4); Eosinophils % (Auto) 3.1 % (0.0-4.3); Hematocrit 29.8 % (30.3-42.9); Lymphocytes # (Auto) 1.7 K/mm3 (1.2-5.4); Lymphocytes % (Auto) 19.2 % (13.4-35.0); Mean Corpuscular HGB Conc 34 % (30-34); Mean Corpuscular Volume 87 fl (79-97); Monocytes # (Auto) 0.6 K/mm3 (0.0-0.8); Monocytes % (Auto) 6.5 % (0.0-7.3); Platelet Count 589 K/mm3 (140-440); Red Blood Count 3.41 M/mm3 (3.65-5.03); Red Cell Distribution Width 13.7 % (13.2-15.2)
[2020-10-04 12:51] LABS: Calcium 9.3 mg/dL (8.4-10.2)
--- NOTE | 2020-10-04 15:05 | Consultation ---
History of Present Illness - Reason for Consult Consult date: 10/04/20 PVD with Right Lower Extremity Ulceration Requesting physician: JOSE ALBERTO RAMOS - History of Present Illness The patient is a 74-year-old female with a history of diabetes and peripheral vascular disease who has undergone endovascular intervention of her right lower extremity to assist with healing of her wounds. Over the past several months her wounds have progressively worsened despite wound care. She states that she was previously able to ambulate without difficulty however her right foot became so painful over the past couple of days that she was unable to ambulate on the foot. This prompted her to present to the emergency department. She denies any fever or chills. She has no additional complaints at this time. Past History Past Medical History: COPD, diabetes, hyperlipidemia, PVD Past Surgical History: cholecystectomy, total knee replacement (Right), Other (Right great toe amputation) Social history: smoking Medications and Allergies Allergies Allergy/AdvReac Type Severity Reaction Status Date / Time Penicillins Allergy Unknown Verified 10/04/20 10:45 Home Medications Medication Instructions Recorded Confirmed Last Taken Type Lispro Insulin [HumaLOG] See Protocol SQ ACHS 09/13/17 08/09/20 Unknown History Pantoprazole [Protonix TAB] 40 mg PO DAILY #7 tablet 06/11/18 08/09/20 Unknown Rx Zolpidem [Ambien] 5 mg PO QHS PRN #5 tablet 06/11/18 08/09/20 Unknown Rx Pantoprazole [Protonix] 40 mg PO QDAY #90 tablet 08/07/20 Unknown Rx Apixaban [Eliquis] 2.5 mg PO Q12HR #60 tablet 08/09/20 Unknown Rx Aspirin EC [Halfprin EC] 81 mg PO QDAY #30 tablet 08/09/20 Unknown Rx Insulin NPH/Regular [NovoLIN 70/30] 25 unit SUB-Q BID 30 Days units 08/09/20 Unknown Rx cilostazoL [Pletal] 100 mg PO BID #60 tablet 08/09/20 Unknown Rx oxyCODONE /ACETAMINOPHEN [Percocet 1 tab PO Q6H PRN 2 Days #12 tablet 08/09/20 Unknown Rx 5/325 mg] Review of Systems All systems: negative Exam - Constitutional Vitals: Temp Pulse Resp BP Pulse Ox 98.1 F 99 H 12 128/69 100 10/04/20 10:30 10/04/20 14:01 10/04/20 14:01 10/04/20 14:01 10/04/20 14:01 General appearance: Present: no acute distress - Neck Neck: Present: supple - Respiratory Respiratory effort: normal - Cardiovascular Rhythm: regular - Extremities Extremities: pulses intact (Palpable right popliteal pulse), abnormal (Right lower extremity with pretibial ulceration with exposed tendon and significant amount of fibrinous exudate, wound measures approximately 15 x 10 x 2 cm) Extremity abnormal: pulses diminished (Nonpalpable pedal pulses right lower extremity), other (Right first toe amputation site with eschar and left fifth toe with dry gangrene) - Abdominal General gastrointestinal: Present: soft, non-tender, non-distended - Rectal Rectal Exam: deferred - Musculoskeletal Musculoskeletal: strength equal bilaterally - Psychiatric Psychiatric: appropriate mood/affect Results - Labs CBC & Chem 7: 10/04/20 11:36 10/04/20 11:36 Labs: Abnormal lab results 10/04/20 10/04/20 Range/Units 11:36 11:36 RBC 3.41 L (3.65-5.03) M/mm3 Hgb 10.0 L (10.1-14.3) gm/dl Hct 29.8 L (30.3-42.9) % Plt Count 589 H (140-440) K/mm3 Sodium 135 L (137-145) mmol/L Chloride 97.8 L (98-107) mmol/L Glucose 109 H (65-100) mg/dL Assessment and Plan The patient is a 74-year-old female with a history of peripheral vascular disease and nonhealing wounds of her right lower extremity. The patient has extremely limited flow to her right lower extremity and at this point her wounds are not salvageable. I discussed with the patient that she will require a below-knee amputation for pain control as well as to prevent sepsis. The patient has an easily palpable right popliteal pulse suggesting adequate flow to heal a right below-knee amputation. The patient did have a right knee replacement so she will require an x-ray of her knee to determine how low the prosthesis is tunneled into the tibia. The patient has expressed understanding of the situation and would like to discuss this with her children who she states are in various cities throughout the [place]. I will follow up with her tomorrow to address any possible questions with the patient as well as any family members and possibly plan for a below-knee amputation on Saturday if the patient is agreeable.
--- NOTE | 2020-10-04 17:15 | XRay Report ---
RIGHT KNEE 2 VIEWS INDICATION / CLINICAL INFORMATION: Plan for Right TKA, evaluate Knee Replacement COMPARISON: None available. FINDINGS: BONES / JOINT(S): No acute fracture or subluxation. There is a right total knee arthroplasty. There i s no radiographic evidence of loosening. SOFT TISSUES: No significant abnormality. ADDITIONAL FINDINGS: None. Signer Name: Jamel Pa MD Signed: 10/04/2020 5:11 PM Workstation Name: [id number]
[2020-10-04] MEDS ORDERED: HYDROmorphone 1 MG/1 ML INJ IV PRN (22:26)
[2020-10-04] MEDS ORDERED: METOCLOPRAMIDE 10 MG/2 ML INJ IV PRN (22:26)
[2020-10-04] MEDS ORDERED: ACETAMINOPHEN 325 MG TAB PO PRN (22:26)
[2020-10-04] MEDS ORDERED: APIXABAN 2.5 MG TAB PO SCH (22:30)
[2020-10-04] MEDS ORDERED: VANCOMYCIN PHARMACY TO DOSE IV SCH (23:00)
[2020-10-04] MEDS: CILOSTAZOL 100 MG TAB PO SCH (23:01)
[2020-10-04] MEDS: oxyCODONE /ACETAMINOPHEN 5-325MG TAB PO PRN (23:03)
[2020-10-04] MEDS ORDERED: VANCOMYCIN 1,250 MG in SODIUM CHLORIDE 0.9% 250ML 250 ML IV ONE (23:30)
[2020-10-05] MEDS ORDERED: AMPICILLIN/SULBACTA 3GM/100ML 3 GM/100 ML BAG IV SCH
--- NOTE | 2020-10-05 06:47 | History and Physical Report ---
History of Present Illness Date of examination: 10/04/20 Date of admission: 10/04/20 13:01 Chief complaint: Right foot gangrenous changes for 10 days History of present illness: 74-year-old female with history of severe peripheral artery disease and uncontrolled diabetes and long-term smoking comes in for gangrenous changes of the right foot for the last 10 days. Patient also has a history of COPD. There are fourth and the fifth digit of the right foot are black and gangrenous. Unable to walk. 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 Patient had extensive interventional vascular surgery on 08/04/2020. Patient was recently admitted in the last admission was reviewed. She had a bulla of her right lower Extremity which has resulted in a chronic wound and has a deep tissue injury at the dorsal for proximal foot at the time of last discharge around 08/04/2020 no patient has gangrenous changes in the right foot especially around the right fourth and fifth toes and is unable to walk. No fever or chills. Last admission reviewed. Last admission was in August 04. - Past Medical History --Hypertension: Yes --Congestive Heart Failure: Yes --Diabetes: Yes --Renal Disease: Yes --COPD: Yes - Surgical History --Cholecystectomy: Yes Additional Surgical History: right great toe amputation. half index toe right foot amputation/ KNEE REPLACEMENT - Social History Smoking Status: Current Some Day Smoker Substance Use Type: None - Medications Home Medications: Home Medications Medication Instructions Recorded Confirmed Last Taken Type Lispro Insulin [HumaLOG] See Protocol SQ ACHS 09/13/17 08/09/20 Unknown History Pantoprazole [Protonix TAB] 40 mg PO DAILY #7 tablet 06/11/18 08/09/20 Unknown Rx Zolpidem [Ambien] 5 mg PO QHS PRN #5 tablet 06/11/18 08/09/20 Unknown Rx Pantoprazole [Protonix] 40 mg PO QDAY #90 tablet 08/07/20 Unknown Rx Apixaban [Eliquis] 2.5 mg PO Q12HR #60 tablet 08/09/20 Unknown Rx Aspirin EC [Halfprin EC] 81 mg PO QDAY #30 tablet 08/09/20 Unknown Rx Insulin NPH/Regular [NovoLIN 70/30] 25 unit SUB-Q BID 30 Days units 08/09/20 Unknown Rx cilostazoL [Pletal] 100 mg PO BID #60 tablet 08/09/20 Unknown Rx oxyCODONE /ACETAMINOPHEN [Percocet 1 tab PO Q6H PRN 2 Days #12 tablet 08/09/20 Unknown Rx 5/325 mg] Review of Systems ROS: Constitutional no weight loss or weight gain no fever or chills HEENT no sore throat no post nasal drip no diplopia Neck no neck stiffness no lymph gland enlargement Chest and lungs no shortness of breath cough or wheezing CVS no chest pain no diaphoresis no palpitations GI no nausea no vomiting no diarrhea Genitourinary system no dysuria no flank pain Musculoskeletal system right foot gangrenous changes near the fourth and fifth toe. DOULA no syncope no seizures Skin no rash no itching Psychiatric no depression no homicidal or suicidal tendencies Hematologic no lymphedema or bruising Endocrine no polydipsia no polyuria no cold intolerance no heat intolerance Past History Past Medical History: COPD, diabetes, hyperlipidemia, PVD Past Surgical History: cholecystectomy, total knee replacement (Right), Other (Right great toe amputation) Social history: smoking Medications and Allergies Allergies Allergy/AdvReac Type Severity Reaction Status Date / Time Penicillins Allergy Unknown Verified 10/04/20 10:45 Home Medications Medication Instructions Recorded Confirmed Last Taken Type Lispro Insulin [HumaLOG] See Protocol SQ ACHS 09/13/17 08/09/20 Unknown History Pantoprazole [Protonix TAB] 40 mg PO DAILY #7 tablet 06/11/18 08/09/20 Unknown Rx Zolpidem [Ambien] 5 mg PO QHS PRN #5 tablet 06/11/18 08/09/20 Unknown Rx Pantoprazole [Protonix] 40 mg PO QDAY #90 tablet 08/07/20 Unknown Rx Apixaban [Eliquis] 2.5 mg PO Q12HR #60 tablet 08/09/20 Unknown Rx Aspirin EC [Halfprin EC] 81 mg PO QDAY #30 tablet 08/09/20 Unknown Rx Insulin NPH/Regular [NovoLIN 70/30] 25 unit SUB-Q BID 30 Days units 08/09/20 Unknown Rx cilostazoL [Pletal] 100 mg PO BID #60 tablet 08/09/20 Unknown Rx oxyCODONE /ACETAMINOPHEN [Percocet 1 tab PO Q6H PRN 2 Days #12 tablet 08/09/20 Unknown Rx 5/325 mg] Exam - Constitutional Vitals: Temp Pulse Resp BP Pulse Ox 98.6 F 101 H 19 123/50 98 10/04/20 21:16 10/04/20 21:16 10/04/20 21:16 10/04/20 21:16 10/04/20 21:16 General appearance: Present: no acute distress, well-nourished - EENT Eyes: Present: PERRL ENT: hearing intact, clear oral mucosa - Neck Neck: Present: supple, normal ROM - Respiratory Respiratory effort: normal Respiratory: bilateral: CTA - Cardiovascular Heart Sounds: Present: S1 & S2. Absent: rub, click - Extremities Extremities: pulses symmetrical, No edema, abnormal (Right foot gangrenous changes) Extremity abnormal: other (Right foot gangrenous changes near the fourth and fifth toe) Peripheral Pulses: within normal limits - Abdominal General gastrointestinal: Present: soft, non-tender, non-distended, normal bowel sounds Female genitourinary: Present: normal - Integumentary Integumentary: Present: clear, warm, dry - Musculoskeletal Musculoskeletal: gait normal, strength equal bilaterally - Psychiatric Psychiatric: appropriate mood/affect, intact judgment & insight - Neurologic Neurologic: CNII-XII intact, moves all extremities Results - Labs CBC & Chem 7: 10/04/20 11:36 10/04/20 11:36 Labs: Laboratory Last Values WBC 8.8 K/mm3 (4.5-11.0) 10/04/20 11:36 RBC 3.41 M/mm3 (3.65-5.03) L 10/04/20 11:36 Hgb 10.0 gm/dl (10.1-14.3) L 10/04/20 11:36 Hct 29.8 % (30.3-42.9) L 10/04/20 11:36 MCV 87 fl (79-97) 10/04/20 11:36 MCH 29 pg (28-32) 10/04/20 11:36 MCHC 34 % (30-34) 10/04/20 11:36 RDW 13.7 % (13.2-15.2) 10/04/20 11:36 Plt Count 589 K/mm3 (140-440) H 10/04/20 11:36 Lymph % (Auto) 19.2 % (13.4-35.0) 10/04/20 11:36 [place] % (Auto) 6.5 % (0.0-7.3) 10/04/20 11:36 Eos % (Auto) 3.1 % (0.0-4.3) 10/04/20 11:36 Baso % (Auto) 1.3 % (0.0-1.8) 10/04/20 11:36 Lymph # (Auto) 1.7 K/mm3 (1.2-5.4) 10/04/20 11:36 [place] # (Auto) 0.6 K/mm3 (0.0-0.8) 10/04/20 11:36 Eos # (Auto) 0.3 K/mm3 (0.0-0.4) 10/04/20 11:36 Baso # (Auto) 0.1 K/mm3 (0.0-0.1) 10/04/20 11:36 Seg Neutrophils % 69.9 % (40.0-70.0) 10/04/20 11:36 Seg Neutrophils # 6.2 K/mm3 (1.8-7.7) 10/04/20 11:36 Sodium 135 mmol/L (137-145) L 10/04/20 11:36 Potassium 4.0 mmol/L (3.6-5.0) 10/04/20 11:36 Chloride 97.8 mmol/L (98-107) L 10/04/20 11:36 Carbon Dioxide 26 mmol/L (22-30) 10/04/20 11:36 Anion Gap 15 mmol/L 10/04/20 11:36 BUN 11 mg/dL (7-17) 10/04/20 11:36 Creatinine 1.0 mg/dL (0.6-1.2) 10/04/20 11:36 Estimated GFR 54 ml/min 10/04/20 11:36 BUN/Creatinine Ratio 11 % 10/04/20 11:36 Glucose 109 mg/dL (65-100) H 10/04/20 11:36 POC Glucose 205 mg/dL (70-105) H 10/04/20 15:51 Calcium 9.3 mg/dL (8.4-10.2) 10/04/20 11:36 Microbiology: Microbiology 10/04/20 11:36 Peripheral/Venous Blood Culture - Preliminary Culture in Progress 10/04/20 11:36 Peripheral/Venous Blood Culture - Preliminary Culture in Progress - Imaging and Cardiology Imaging and Cardiology: Right foot x-ray Worsening soft tissue ulceration involving the first third and fifth toes with findings concerning for osteomyelitis of the first distal phalanx and fifth toe proximal and distal phalanx. Consider further evaluation with MRI. Metatarsal head distal aspect of the second toe proximal phalanx Garza/IV: Voiding Method Toilet Assessment and Plan Advance Directives: Yes (Full code) VTE prophylaxis?: Chemical Plan of care discussed with patient/family: Yes - Patient Problems (1) Gangrene Current Visit: Yes Status: Acute Plan to address problem: Patient has severe PAD Now patient has gangrenous changes of the right fourth and fifth toes Also osteomyelitis of first MTP joint area of the right foot and other toes Patient may need TMA Will defer to vascular surgery Patient initiated on IV Levaquin because of penicillin allergy and IV vancomycin ID consult (2) COPD (chronic obstructive pulmonary disease) Current Visit: No Status: Chronic Qualifiers: COPD type: chronic bronchitis Plan to address problem: DuoNebs as needed \Advised to stop smoking (3) Insulin dependent diabetes mellitus Current Visit: Yes Status: Chronic Plan to address problem: Poorly controlled diabetes Insulin dosage adjusted Lantus 30 units subcu at bedtime and Humalog before each meal Check hemoglobin A1c (4) PAD (peripheral artery disease) Current Visit: Yes Status: Chronic Plan to address problem: Continue cilostazol (5) Nicotine dependence Current Visit: Yes Status: Chronic Qualifiers: Nicotine product type: cigarettes Plan to address problem: Patient states she smokes only 1 cigarette/day now Patient has [id number] history of smoking Patient counseled over stopping smoking NicoDerm patch initiated (6) Anemia Current Visit: Yes Status: Acute Plan to address problem: Anemia work-up (7) Advance care planning Current Visit: No Status: Acute Plan to address problem: Advance care planning discussed Patient is a full code (8) DVT prophylaxis Current Visit: No Status: Acute Plan to address problem: On heparin and GI prophylaxis
[2020-10-05] MEDS: INSULIN LISPRO 100 UNIT/ML SUB-Q SCH ×4 (07:39→22:18)
[2020-10-05 07:56] LABS: Basophils # (Auto) 0.1 K/mm3 (0.0-0.1); Basophils % (Auto) 1.3 % (0.0-1.8); Eosinophils # (Auto) 0.3 K/mm3 (0.0-0.4); Eosinophils % (Auto) 5.5 % (0.0-4.3); Hematocrit 24.9 % (30.3-42.9); Hemoglobin 8.6 gm/dl (10.1-14.3); Lymphocytes # (Auto) 1.2 K/mm3 (1.2-5.4); Lymphocytes % (Auto) 19.9 % (13.4-35.0); Mean Corpuscular HGB Conc 35 % (30-34); Mean Corpuscular Volume 87 fl (79-97); Monocytes # (Auto) 0.4 K/mm3 (0.0-0.8); Monocytes % (Auto) 6.8 % (0.0-7.3); Platelet Count 466 K/mm3 (140-440); Red Blood Count 2.87 M/mm3 (3.65-5.03); Red Cell Distribution Width 14.1 % (13.2-15.2)
[2020-10-05 08:02] LABS: Albumin 2.8 g/dL (3.9-5); Calcium 8.2 mg/dL (8.4-10.2)
--- NOTE | 2020-10-05 08:26 | Progress Note ---
Assessment and Plan Assessment and plan: (1) Gangrene Current Visit: Yes Status: Acute Plan to address problem: Patient has severe PAD Now patient has gangrenous changes of the right fourth and fifth toes Also osteomyelitis of first MTP joint area of the right foot and other toes Patient may need TMA Will defer to vascular surgery Patient initiated on IV Levaquin because of penicillin allergy and IV vancomycin ID consult (2) COPD (chronic obstructive pulmonary disease) Current Visit: No Status: Chronic Qualifiers: COPD type: chronic bronchitis Plan to address problem: DuoNebs as needed \Advised to stop smoking (3) Insulin dependent diabetes mellitus Current Visit: Yes Status: Chronic Plan to address problem: Poorly controlled diabetes Insulin dosage adjusted Lantus 30 units subcu at bedtime and Humalog before each meal Check hemoglobin A1c (4) PAD (peripheral artery disease) Current Visit: Yes Status: Chronic Plan to address problem: Continue cilostazol (5) Nicotine dependence Current Visit: Yes Status: Chronic Qualifiers: Nicotine product type: cigarettes Plan to address problem: Patient states she smokes only 1 cigarette/day now Patient has [id number] history of smoking Patient counseled over stopping smoking NicoDerm patch initiated (6) Anemia Current Visit: Yes Status: Acute Plan to address problem: Anemia work-up (7) Advance care planning Current Visit: No Status: Acute Plan to address problem: Advance care planning discussed Patient is a full code (8) DVT prophylaxis Current Visit: No Status: Acute Plan to address problem: On heparin and GI prophylaxis 10/05/2020 -Patient was seen by respiratory surgeon Dr. Mackay and the plan to do right BKA but patient did not decide, discussed with him and he states okay to hold the Eliquis from today. -Patient is on 25 units of 70/30 insulin twice daily but blood sugar is uncontrolled. Accu-Chek, ADA diet, adjust insulin as needed. History Interval history: Patient was seen and evaluated this morning Patient has right foot gangrene, some pain on the right foot Hospitalist Physical - Physical exam Narrative exam: Not in cardiopulmonary distress. The patient appeared well nourished and normally developed. Vital signs as documented. Head exam is unremarkable. No scleral icterus . Neck is without jugular venous distension, thyromegaly, or carotid bruits. Lungs are clear to auscultation. Cardiac exam reveals regular rate and Rhythm. Abdominal exam reveals normal bowel sounds, nontender, no organomegaly. Extremities right foot gangrene. RETURN TO VENDOR: Alert and oriented 3. No focal weakness. - Constitutional Vitals: Temp Pulse Resp BP Pulse Ox 98.1 F 93 H 16 118/43 98 10/05/20 03:55 10/05/20 03:55 10/05/20 03:55 10/05/20 03:55 10/05/20 03:55 General appearance: Present: no acute distress, well-nourished Results - Labs CBC & Chem 7: 10/05/20 07:11 10/05/20 07:11 Labs: Laboratory Last Values WBC 6.1 K/mm3 (4.5-11.0) 10/05/20 07:11 RBC 2.87 M/mm3 (3.65-5.03) L 10/05/20 07:11 Hgb 8.6 gm/dl (10.1-14.3) L 10/05/20 07:11 Hct 24.9 % (30.3-42.9) L 10/05/20 07:11 MCV 87 fl (79-97) 10/05/20 07:11 MCH 30 pg (28-32) 10/05/20 07:11 MCHC 35 % (30-34) H 10/05/20 07:11 RDW 14.1 % (13.2-15.2) 10/05/20 07:11 Plt Count 466 K/mm3 (140-440) H 10/05/20 07:11 Lymph % (Auto) 19.9 % (13.4-35.0) 10/05/20 07:11 [place] % (Auto) 6.8 % (0.0-7.3) 10/05/20 07:11 Eos % (Auto) 5.5 % (0.0-4.3) H 10/05/20 07:11 Baso % (Auto) 1.3 % (0.0-1.8) 10/05/20 07:11 Lymph # (Auto) 1.2 K/mm3 (1.2-5.4) 10/05/20 07:11 [place] # (Auto) 0.4 K/mm3 (0.0-0.8) 10/05/20 07:11 Eos # (Auto) 0.3 K/mm3 (0.0-0.4) 10/05/20 07:11 Baso # (Auto) 0.1 K/mm3 (0.0-0.1) 10/05/20 07:11 Seg Neutrophils % 66.5 % (40.0-70.0) 10/05/20 07:11 Seg Neutrophils # 4.1 K/mm3 (1.8-7.7) 10/05/20 07:11 Sodium 131 mmol/L (137-145) L 10/05/20 07:11 Potassium 4.5 mmol/L (3.6-5.0) 10/05/20 07:11 Chloride 99.3 mmol/L (98-107) 10/05/20 07:11 Carbon Dioxide 23 mmol/L (22-30) 10/05/20 07:11 Anion Gap 13 mmol/L 10/05/20 07:11 BUN 13 mg/dL (7-17) 10/05/20 07:11 Creatinine 1.1 mg/dL (0.6-1.2) 10/05/20 07:11 Estimated GFR 49 ml/min 10/05/20 07:11 BUN/Creatinine Ratio 12 % 10/05/20 07:11 Glucose 354 mg/dL (65-100) H 10/05/20 07:11 POC Glucose 374 mg/dL (70-105) H 10/04/20 20:51 Hemoglobin A1c 9.5 % (4-6) H 10/05/20 07:11 Calcium 8.2 mg/dL (8.4-10.2) L 10/05/20 07:11 Total Bilirubin 0.20 mg/dL (0.1-1.2) 10/05/20 07:11 AST 8 units/L (5-40) 10/05/20 07:11 ALT 6 units/L (7-56) L 10/05/20 07:11 Alkaline Phosphatase 131 units/L (35-129) H 10/05/20 07:11 Total Protein 6.5 g/dL (6.3-8.2) 10/05/20 07:11 Albumin 2.8 g/dL (3.9-5) L 10/05/20 07:11 Albumin/Globulin Ratio 0.8 % 10/05/20 07:11 Microbiology: Microbiology 10/04/20 11:36 Peripheral/Venous Blood Culture - Preliminary Culture in Progress 10/04/20 11:36 Peripheral/Venous Blood Culture - Preliminary Culture in Progress Garza/IV: Voiding Method Toilet Active Medications - Current Medications Current Medications: Generic Name Dose Route Start Last Admin Trade Name Freq PRN Reason Stop Dose Admin Acetaminophen 650 mg 10/04/20 22:26 Acetaminophen 325 Mg Tab PO Q4H PRN Pain MILD(1-3)/Fever >100.5/WRIGHT Aspirin 81 mg 10/05/20 10:00 Aspirin Ec 81 Mg Tab PO QDAY [facility] Cilostazol 100 mg 10/04/20 23:00 10/04/20 23:01 Cilostazol 100 Mg Tab PO 100 mg BID MARGARET Administration Hydromorphone HCl 0.5 mg 10/04/20 22:26 Hydromorphone 1 Mg/1 Ml Inj IV Q3H PRN Pain , Severe (7-10) Vancomycin HCl 1 gm in 250 mls @ 166.667 mls/hr 10/06/20 06:00 Vancomycin/Ns 1 Gm/250 Ml IV Q24H [facility] Levofloxacin/Dextrose 750 mg in 150 mls @ 150 mls/hr 10/06/20 08:00 Levaquin 750mg/150ml IV Q48H [facility] Insulin Human Isoph/Insulin Regular 25 unit 10/05/20 08:00 Insulin Nph/Regular 70/30 Inj SUB-Q BIDDIAB [facility] Insulin Human Lispro 0 unit 10/05/20 07:30 10/05/20 07:39 Insulin Lispro 100 Unit/Ml SUB-Q 6 unit ACHS [facility] Administration Protocol Metoclopramide HCl 10 mg 10/04/20 22:26 Metoclopramide 10 Mg/2 Ml Inj IV Q6H PRN Nausea And Vomiting Nicotine 7 mg 10/05/20 10:00 Nicotine 7 Mg/24 Hr Patch TD QDAY [facility] Ondansetron HCl 4 mg 10/04/20 22:26 Ondansetron 4 Mg/2 Ml Inj IV Q3H PRN Nausea And Vomiting Oxycodone/Acetaminophen 1 tab 10/04/20 22:25 10/04/20 23:03 Oxycodone /Acetaminophen 5-325mg Tab PO 1 tab Q6H PRN Administration Pain, Moderate (4-6) Pantoprazole Sodium 40 mg 10/05/20 10:00 Pantoprazole 40 Mg Tab PO DAILY MARGARET Sodium Chloride 10 ml 10/04/20 23:00 10/04/20 23:00 Sodium Chloride 0.9% 10 Ml Flush Syringe IV 10 ml BID MARGARET Administration Sodium Chloride 10 ml 10/04/20 22:26 Sodium Chloride 0.9% 10 Ml Flush Syringe IV PRN PRN LINE FLUSH Zolpidem Tartrate 5 mg 10/04/20 22:25 Zolpidem 5 Mg Tab PO QHS PRN Sleep
[2020-10-05] MEDS: ASPIRIN EC 81 MG TAB PO SCH (09:15)
[2020-10-05] MEDS: PANTOPRAZOLE 40 MG TAB PO SCH (09:15)
[2020-10-05] MEDS: NICOTINE 7 MG/24 HR PATCH TD SCH (09:15)
[2020-10-05] MEDS: INSULIN NPH/REGULAR 70/30 INJ SUB-Q SCH ×2 (09:16→16:40)
[2020-10-05] MEDS ORDERED: VANCOMYCIN/NS 1 GM/250 ML 1 GM/250 ML BAG IV SCH (10:00)
[2020-10-05] MEDS ORDERED: HEPARIN 5,000 UNIT/1 ML VIAL SUB-Q SCH (10:00)
[2020-10-05] MEDS: CILOSTAZOL 100 MG TAB PO SCH ×2 (10:35→22:19)
--- NOTE | 2020-10-05 12:22 | Event Note ---
Date: 10/05/20 Discussed the possibility of a right BKA with the patient and she stated that she discussed it with her children and they, including the patient, are concerned about her ability to live independently after an amputation. She is not willing to consent to the amputation at this time. She is hoping there is a chance at limb salvage since she live alone. I explained that this would be nearly impossible and would require additional endovascular intervention with the hope of recannulating chronically occluded tibial vessels as well as extensive debridement of her right leg, along with a right transmetatarsal amputation and this still would not guarantee that her wounds would heal. She expressed that she wanted every effort to salvage her leg. I will review her previous films and determine if there is any possibility at providing additional flow.
--- NOTE | 2020-10-05 14:46 | Consultation ---
History of Present Illness - Reason for Consult Consult date: 10/05/20 - History of Present Illness 74-year-old female past medical history PAD, uncontrolled diabetes, nicotine abuse presented to hospital complaining of worsening pain in the right foot. She has had chronic wounds of the feet for some time, however they become progressively worse over the past 10 days. Of note the fourth and fifth digit are black and gangrenous. She is unable to walk due to the pain. She had vascular surgery done in July of this year due to occlusive peripheral vascular disease. Afebrile since admission with a white count of 6.1. Estimated GFR 49. Blood cultures no growth so far. Currently on levofloxacin and vancomycin. Imaging personally reviewed: Foot x-ray: Findings concerning for osteo of the first toe metatarsal head as well as distal aspect of the second toe proximal phalanx, third toe distal phalanx, fifth toe proximal and distal phalanges. Review of Systems: Bold if positive, otherwise negative General: fevers, chills, rigors HEENT: visual disturbance, diplopia, eye pain Respiratory: cough, sputum, hemoptysis, shortness of breath Cardiovascular: chest pain, syncope Gastrointestinal: nausea, vomiting, diarrhea, abdominal pain Genitourinary: dysuria, hematuria, flank pain Musculoskeletal: neck pain, back pain, joint pain, edema Neurologic: headaches, seizures Hematologic: easy bruising or bleeding Endocrine: night sweats, acute weight loss Skin: rash, jaundice, redness Psychiatric: suicidal, homicidal ideation Past History Past Medical History: COPD, diabetes, hyperlipidemia, PVD Past Surgical History: cholecystectomy, total knee replacement (Right), Other (Right great toe amputation) Social history: smoking Medications and Allergies Allergies Allergy/AdvReac Type Severity Reaction Status Date / Time Penicillins Allergy Unknown Verified 10/04/20 10:45 Home Medications Medication Instructions Recorded Confirmed Last Taken Type Lispro Insulin [HumaLOG] See Protocol SQ ACHS 09/13/17 08/09/20 Unknown History Pantoprazole [Protonix TAB] 40 mg PO DAILY #7 tablet 06/11/18 08/09/20 Unknown Rx Zolpidem [Ambien] 5 mg PO QHS PRN #5 tablet 06/11/18 08/09/20 Unknown Rx Pantoprazole [Protonix] 40 mg PO QDAY #90 tablet 08/07/20 Unknown Rx Apixaban [Eliquis] 2.5 mg PO Q12HR #60 tablet 08/09/20 Unknown Rx Aspirin EC [Halfprin EC] 81 mg PO QDAY #30 tablet 08/09/20 Unknown Rx Insulin NPH/Regular [NovoLIN 70/30] 25 unit SUB-Q BID 30 Days units 08/09/20 Unknown Rx cilostazoL [Pletal] 100 mg PO BID #60 tablet 08/09/20 Unknown Rx oxyCODONE /ACETAMINOPHEN [Percocet 1 tab PO Q6H PRN 2 Days #12 tablet 08/09/20 Unknown Rx 5/325 mg] Active Meds: Active Medications Acetaminophen (Acetaminophen 325 Mg Tab) 650 mg PO Q4H PRN PRN Reason: Pain MILD(1-3)/Fever >100.5/WRIGHT Aspirin (Aspirin Ec 81 Mg Tab) 81 mg PO QDAY [facility] Last Admin: 10/05/20 09:15 Dose: 81 mg Documented by: Cilostazol (Cilostazol 100 Mg Tab) 100 mg PO BID [facility] Last Admin: 10/05/20 10:35 Dose: 100 mg Documented by: Enoxaparin Sodium (Enoxaparin 60 Mg/0.6 Ml Inj) 60 mg SUB-Q Q12HR [facility] Hydromorphone HCl (Hydromorphone 1 Mg/1 Ml Inj) 0.5 mg IV Q3H PRN PRN Reason: Pain , Severe (7-10) Vancomycin HCl (Vancomycin/Ns 1 Gm/250 Ml) 1 gm in 250 mls @ 166.667 mls/hr IV Q24H [facility] Levofloxacin/Dextrose (Levaquin 750mg/150ml) 750 mg in 150 mls @ 150 mls/hr IV Q48H [facility] Insulin Human Isoph/Insulin Regular (Insulin Nph/Regular 70/30 Inj) 25 unit SUB-Q BIDDIAB [facility] Last Admin: 10/05/20 09:16 Dose: 25 unit Documented by: Insulin Human Lispro (Insulin Lispro 100 Unit/Ml) 0 unit SUB-Q [facility]; Protocol Last Admin: 10/05/20 12:06 Dose: 2 unit Documented by: Metoclopramide HCl (Metoclopramide 10 Mg/2 Ml Inj) 10 mg IV Q6H PRN PRN Reason: Nausea And Vomiting Nicotine (Nicotine 7 Mg/24 Hr Patch) 7 mg TD QDAY [facility] Last Admin: 10/05/20 09:15 Dose: 7 mg Documented by: Ondansetron HCl (Ondansetron 4 Mg/2 Ml Inj) 4 mg IV Q3H PRN PRN Reason: Nausea And Vomiting Oxycodone/Acetaminophen (Oxycodone /Acetaminophen 5-325mg Tab) 1 tab PO Q6H PRN PRN Reason: Pain, Moderate (4-6) Last Admin: 10/04/20 23:03 Dose: 1 tab Documented by: Pantoprazole Sodium (Pantoprazole 40 Mg Tab) 40 mg PO DAILY [facility] Last Admin: 10/05/20 09:15 Dose: 40 mg Documented by: Sodium Chloride (Sodium Chloride 0.9% 10 Ml Flush Syringe) 10 ml IV BID [facility] Last Admin: 10/05/20 12:07 Dose: 10 ml Documented by: Sodium Chloride (Sodium Chloride 0.9% 10 Ml Flush Syringe) 10 ml IV PRN PRN PRN Reason: LINE FLUSH Zolpidem Tartrate (Zolpidem 5 Mg Tab) 5 mg PO QHS PRN PRN Reason: Sleep Physical Examination - Physical Exam Narrative exam: Physical Exam: Constitutional: Alert, cooperative. No acute distress Head, Ears, Nose: Normocephalic, atraumatic. External ears, nose normal Eyes: Conjunctivae/corneas clear. No icterus. No ptosis. Neck: Supple, no meningeal signs Oral: dentition fair, no thrush Cardiovascular: S1, S2 normal. Respiratory: Good air entry, clear to auscultation bilaterally GI: Soft, non-tender; bowel sounds normal. No peritoneal signs. Musculoskeletal: Right foot medial wound with missing first toe, gangrenous changes of the second toe, fourth and fifth toes. Large snider wound. Lateral foot wound is well. Skin: No rash or abscess Hem/Lymphatic: No palpable cervical or supraclavicular nodes. No lymphangitis Psych: Mood ok. Affect normal Neurological: Awake, alert, oriented. No gross abnormality - Constitutional Vitals: Vital Signs Temp Pulse Resp BP Pulse Ox 97.4 F L 98 H 20 138/54 99 10/05/20 11:33 10/05/20 11:33 10/05/20 11:33 10/05/20 11:33 10/05/20 11:33 Temperature -Last 24 Hours Temperature 97.4 F Temperature 98.1 F Temperature 98.6 F Temperature 98.0 F Results - Labs CBC & Chem 7: 10/05/20 07:11 10/05/20 07:11 Labs: Abnormal lab results 10/04/20 10/04/20 10/05/20 Range/Units 15:51 20:51 07:11 RBC 2.87 L (3.65-5.03) M/mm3 Hgb 8.6 L (10.1-14.3) gm/dl Hct 24.9 L (30.3-42.9) % MCHC 35 H (30-34) % Plt Count 466 H (140-440) K/mm3 Eos % (Auto) 5.5 H (0.0-4.3) % Sodium (137-145) mmol/L Glucose (65-100) mg/dL POC Glucose 205 H 374 H (70-105) mg/dL Hemoglobin A1c (4-6) % Calcium (8.4-10.2) mg/dL ALT (7-56) units/L Alkaline Phosphatase (35-129) units/L Albumin (3.9-5) g/dL 10/05/20 10/05/20 Range/Units 07:11 07:11 RBC (3.65-5.03) M/mm3 Hgb (10.1-14.3) gm/dl Hct (30.3-42.9) % MCHC (30-34) % Plt Count (140-440) K/mm3 Eos % (Auto) (0.0-4.3) % Sodium 131 L (137-145) mmol/L Glucose 354 H (65-100) mg/dL POC Glucose (70-105) mg/dL Hemoglobin A1c 9.5 H (4-6) % Calcium 8.2 L (8.4-10.2) mg/dL ALT 6 L (7-56) units/L Alkaline Phosphatase 131 H (35-129) units/L Albumin 2.8 L (3.9-5) g/dL Assessment and Plan Cultures: Blood culture 10/04/2020 no growth so far A/P: 74-year-old female past medical history PAD, uncontrolled diabetes, nicotine abuse admitted with right foot gangrene #Right foot gangrene and osteomyelitis: Widespread osteomyelitis seen on the foot x-ray with obvious gangrenous changes and large wounds to the foot both medially and laterally as well as the snider. I do not believe the leg is viable, however she is refusing amputation at the present time and wish to try any salvage therapy she can. #PAD: With recent vascular surgery, vascular currently on board and plan for and options to restore flow to the limb #Poorly controlled diabetes: Recommend tight glycemic control for best outcomes in wound healing Recs: -Wound care consult -Continue vancomycin goal trough 10-20 -Continue Levaquin for now in light of penicillin allergy. -Obtain wound culture -If debridement performed, please obtain deep cultures -Ultimately believe she will require amputation Thank you for the consult, we will continue to follow. Manasa Augustin MD [facility] ([facility]) O: [phone] F: [phone]
[2020-10-05] MEDS ORDERED: IPRATROPIUM/ALBUTEROL SULFATE 3 ML AMPUL.NEB IH PRN (17:56)
[2020-10-05] MEDS ORDERED: ALBUTEROL 2.5 MG/3 ML NEBU IH PRN (17:59)
[2020-10-05] MEDS ORDERED: ENOXAPARIN 100 MG/1 ML INJ SUB-Q SCH (22:00)
[2020-10-05] MEDS: ENOXAPARIN 60 MG/0.6 ML INJ SUB-Q SCH (22:18)
[2020-10-05] MEDS: INSULIN GLARGINE 100 UNITS/ML SUB-Q SCH (22:18)
[2020-10-06] MEDS: VANCOMYCIN/NS 1 GM/250 ML 1 GM/250 ML BAG IV SCH (05:13)
[2020-10-06] MEDS: oxyCODONE /ACETAMINOPHEN 5-325MG TAB PO PRN ×3 (05:13→21:55)
[2020-10-06 05:40] LABS: Calcium 9.2 mg/dL (8.4-10.2)
--- NOTE | 2020-10-06 07:57 | Progress Note ---
Assessment and Plan Assessment and plan: (1) Gangrene Current Visit: Yes Status: Acute Plan to address problem: Patient has severe PAD Now patient has gangrenous changes of the right fourth and fifth toes Also osteomyelitis of first MTP joint area of the right foot and other toes Patient may need TMA Will defer to vascular surgery Patient initiated on IV Levaquin because of penicillin allergy and IV vancomycin ID consult (2) COPD (chronic obstructive pulmonary disease) Current Visit: No Status: Chronic Qualifiers: COPD type: chronic bronchitis Plan to address problem: DuoNebs as needed \Advised to stop smoking (3) Insulin dependent diabetes mellitus Current Visit: Yes Status: Chronic Plan to address problem: Poorly controlled diabetes Insulin dosage adjusted Lantus 30 units subcu at bedtime and Humalog before each meal Check hemoglobin A1c (4) PAD (peripheral artery disease) Current Visit: Yes Status: Chronic Plan to address problem: Continue cilostazol (5) Nicotine dependence Current Visit: Yes Status: Chronic Qualifiers: Nicotine product type: cigarettes Plan to address problem: Patient states she smokes only 1 cigarette/day now Patient has [id number] history of smoking Patient counseled over stopping smoking NicoDerm patch initiated (6) Anemia Current Visit: Yes Status: Acute Plan to address problem: Anemia work-up (7) Advance care planning Current Visit: No Status: Acute Plan to address problem: Advance care planning discussed Patient is a full code (8) DVT prophylaxis Current Visit: No Status: Acute Plan to address problem: On heparin and GI prophylaxis 10/05/2020 -Patient was seen by respiratory surgeon Dr. Mackay and the plan to do right BKA but patient did not decide, discussed with him and he states okay to hold the Eliquis from today. -Patient is on 25 units of 70/30 insulin twice daily but blood sugar is uncontrolled. Accu-Chek, ADA diet, adjust insulin as needed. 10/06/2020 -Patient is on IV vancomycin and Levaquin per ID recommendation. -Vascular surgery discussed with the patient for right BKA, but patient did not consent. She wants to try other interventions before amputation. Vascular surgery is following. -Patient's blood sugar is in target. Continue current medication regimens. History Interval history: Patient was seen and evaluated this morning Patient has right foot gangrene, some pain on the right foot Hospitalist Physical - Physical exam Narrative exam: Not in cardiopulmonary distress. The patient appeared well nourished and normally developed. Vital signs as documented. Head exam is unremarkable. No scleral icterus . Neck is without jugular venous distension, thyromegaly, or carotid bruits. Lungs are clear to auscultation. Cardiac exam reveals regular rate and Rhythm. Abdominal exam reveals normal bowel sounds, nontender, no organomegaly. Extremities right foot gangrene. [employer]: Alert and oriented 3. No focal weakness. - Constitutional Vitals: Temp Pulse Resp BP Pulse Ox 98.5 F 103 H 18 123/54 96 10/06/20 04:47 10/06/20 04:47 10/06/20 04:47 10/06/20 04:47 10/06/20 04:47 General appearance: Present: no acute distress, well-nourished Results - Labs CBC & Chem 7: 10/05/20 07:11 10/06/20 04:38 Labs: Laboratory Last Values WBC 6.1 K/mm3 (4.5-11.0) 10/05/20 07:11 RBC 2.87 M/mm3 (3.65-5.03) L 10/05/20 07:11 Hgb 8.6 gm/dl (10.1-14.3) L 10/05/20 07:11 Hct 24.9 % (30.3-42.9) L 10/05/20 07:11 MCV 87 fl (79-97) 10/05/20 07:11 MCH 30 pg (28-32) 10/05/20 07:11 MCHC 35 % (30-34) H 10/05/20 07:11 RDW 14.1 % (13.2-15.2) 10/05/20 07:11 Plt Count 466 K/mm3 (140-440) H 10/05/20 07:11 Lymph % (Auto) 19.9 % (13.4-35.0) 10/05/20 07:11 [place] % (Auto) 6.8 % (0.0-7.3) 10/05/20 07:11 Eos % (Auto) 5.5 % (0.0-4.3) H 10/05/20 07:11 Baso % (Auto) 1.3 % (0.0-1.8) 10/05/20 07:11 Lymph # (Auto) 1.2 K/mm3 (1.2-5.4) 10/05/20 07:11 [place] # (Auto) 0.4 K/mm3 (0.0-0.8) 10/05/20 07:11 Eos # (Auto) 0.3 K/mm3 (0.0-0.4) 10/05/20 07:11 Baso # (Auto) 0.1 K/mm3 (0.0-0.1) 10/05/20 07:11 Seg Neutrophils % 66.5 % (40.0-70.0) 10/05/20 07:11 Seg Neutrophils # 4.1 K/mm3 (1.8-7.7) 10/05/20 07:11 Sodium 137 mmol/L (137-145) 10/06/20 04:38 Potassium 3.8 mmol/L (3.6-5.0) 10/06/20 04:38 Chloride 101.2 mmol/L (98-107) 10/06/20 04:38 Carbon Dioxide 25 mmol/L (22-30) 10/06/20 04:38 Anion Gap 15 mmol/L 10/06/20 04:38 BUN 13 mg/dL (7-17) 10/06/20 04:38 Creatinine 1.0 mg/dL (0.6-1.2) 10/06/20 04:38 Estimated GFR 54 ml/min 10/06/20 04:38 BUN/Creatinine Ratio 13 % 10/06/20 04:38 Glucose 100 mg/dL (65-100) 10/06/20 04:38 POC Glucose 191 mg/dL (70-105) H 10/05/20 22:08 Hemoglobin A1c 9.5 % (4-6) H 10/05/20 07:11 Calcium 9.2 mg/dL (8.4-10.2) 10/06/20 04:38 Total Bilirubin 0.20 mg/dL (0.1-1.2) 10/05/20 07:11 AST 8 units/L (5-40) 10/05/20 07:11 ALT 6 units/L (7-56) L 10/05/20 07:11 Alkaline Phosphatase 131 units/L (35-129) H 10/05/20 07:11 Total Protein 6.5 g/dL (6.3-8.2) 10/05/20 07:11 Albumin 2.8 g/dL (3.9-5) L 10/05/20 07:11 Albumin/Globulin Ratio 0.8 % 10/05/20 07:11 Microbiology: Microbiology 10/04/20 11:36 Peripheral/Venous Blood Culture - Preliminary NO GROWTH AFTER 24 HOURS 10/04/20 11:36 Peripheral/Venous Blood Culture - Preliminary NO GROWTH AFTER 24 HOURS Garza/IV: Voiding Method Bedside Commode Active Medications - Current Medications Current Medications: Generic Name Dose Route Start Last Admin Trade Name Freq PRN Reason Stop Dose Admin Acetaminophen 650 mg 10/04/20 22:26 Acetaminophen 325 Mg Tab PO Q4H PRN Pain MILD(1-3)/Fever >100.5/WRIGHT Albuterol 2.5 mg 10/05/20 17:59 Albuterol 2.5 Mg/3 Ml Nebu IH Q3HRT PRN Wheezing Aspirin 81 mg 10/05/20 10:00 10/05/20 09:15 Aspirin Ec 81 Mg Tab PO 81 mg QDAY MARGARET Administration Cilostazol 100 mg 10/04/20 23:00 10/05/20 22:19 Cilostazol 100 Mg Tab PO 100 mg BID MARGARET Administration Enoxaparin Sodium 60 mg 10/05/20 22:00 10/05/20 22:18 Enoxaparin 60 Mg/0.6 Ml Inj SUB-Q 60 mg Q12HR MARGARET Administration Hydromorphone HCl 0.5 mg 10/04/20 22:26 10/05/20 19:10 Hydromorphone 1 Mg/1 Ml Inj IV 0.5 mg Q3H PRN Administration Pain , Severe (7-10) Vancomycin HCl 1 gm in 250 mls @ 166.667 mls/hr 10/06/20 06:00 10/06/20 05:13 Vancomycin/Ns 1 Gm/250 Ml IV 166.667 mls/hr Q24H MARGARET Administration Levofloxacin/Dextrose 750 mg in 150 mls @ 150 mls/hr 10/06/20 08:00 Levaquin 750mg/150ml IV Q48H MARGARET Insulin Glargine 35 units 10/05/20 22:00 10/05/20 22:18 Insulin Glargine 100 Units/Ml SUB-Q 35 units QHS MARGARET Administration Insulin Human Lispro 0 unit 10/05/20 07:30 10/05/20 22:18 Insulin Lispro 100 Unit/Ml SUB-Q 2 unit ACHS MARGARET Administration Protocol Insulin Human Lispro 8 unit 10/06/20 07:30 Insulin Lispro 100 Unit/Ml SUB-Q AC [facility]ARGARET Metoclopramide HCl 10 mg 10/04/20 22:26 Metoclopramide 10 Mg/2 Ml Inj IV Q6H PRN Nausea And Vomiting Nicotine 7 mg 10/05/20 10:00 10/05/20 09:15 Nicotine 7 Mg/24 Hr Patch TD 7 mg QDAY MARGARET Administration Ondansetron HCl 4 mg 10/04/20 22:26 Ondansetron 4 Mg/2 Ml Inj IV Q3H PRN Nausea And Vomiting Oxycodone/Acetaminophen 1 tab 10/04/20 22:25 10/06/20 05:13 Oxycodone /Acetaminophen 5-325mg Tab PO 1 tab Q6H PRN Administration Pain, Moderate (4-6) Pantoprazole Sodium 40 mg 10/05/20 10:00 10/05/20 09:15 Pantoprazole 40 Mg Tab PO 40 mg DAILY MARGARET Administration Sodium Chloride 10 ml 10/04/20 23:00 10/05/20 22:19 Sodium Chloride 0.9% 10 Ml Flush Syringe IV 10 ml BID MARGARET Administration Sodium Chloride 10 ml 10/04/20 22:26 Sodium Chloride 0.9% 10 Ml Flush Syringe IV PRN PRN LINE FLUSH Zolpidem Tartrate 5 mg 10/04/20 22:25 Zolpidem 5 Mg Tab PO QHS PRN Sleep
[2020-10-06] MEDS: INSULIN LISPRO 100 UNIT/ML SUB-Q SCH ×7 (08:00→21:53)
[2020-10-06] MEDS ORDERED: diphenhydrAMINE 50 MG/ML VIAL IV ONE (09:00)
[2020-10-06] MEDS: NICOTINE 7 MG/24 HR PATCH TD SCH (09:19)
[2020-10-06] MEDS: PANTOPRAZOLE 40 MG TAB PO SCH (09:19)
[2020-10-06] MEDS: ASPIRIN EC 81 MG TAB PO SCH (09:20)
[2020-10-06] MEDS: CILOSTAZOL 100 MG TAB PO SCH ×2 (09:20→21:52)
[2020-10-06] MEDS: ENOXAPARIN 60 MG/0.6 ML INJ SUB-Q SCH ×2 (09:23→21:52)
--- NOTE | 2020-10-06 14:07 | Progress Note ---
Assessment and Plan Cultures: Blood culture 10/04/2020 no growth so far A/P: 74-year-old female past medical history PAD, uncontrolled diabetes, nicotine abuse admitted with right foot gangrene #Right foot gangrene and osteomyelitis: Widespread osteomyelitis seen on the foot x-ray with obvious gangrenous changes and large wounds to the foot both medially and laterally as well as the snider. I do not believe the leg is viable, however she is refusing amputation at the present time and wish to try any salvage therapy she can. She does note that she is amenable to surgery if nothing else can be done. She reports she will be moving in with her daughter in [place] after being discharged, and as such home care and home antibiotics will need to be arranged there. We will potentially arrange for home antibiotics based on whether or not she is eventually agreeable to the amputation. #PAD: With recent vascular surgery, vascular currently on board and plan for and options to restore flow to the limb #Poorly controlled diabetes: Recommend tight glycemic control for best outcomes in wound healing #Penicillin allergy: Reports remote reaction, not sure what reaction was. Has not had any in several years. Open to testing inpatient. Recs: -Wound care consult -Continue vancomycin goal trough 10-20 -Continue Levaquin for now in light of penicillin allergy. -Obtain wound culture -If debridement performed, please obtain deep cultures -Ultimately believe she will require amputation Thank you for the consult, we will continue to follow. Manasa Augustin MD [facility] ([facility]) O: [phone] F: [phone] Subjective Date of service: 10/06/20 Interval history: Afebrile, normal white count. Blood and wound cultures pending. Objective - Exam Narrative Exam: Physical Exam: Constitutional: Alert, cooperative. No acute distress Head, Ears, Nose: Normocephalic, atraumatic. External ears, nose normal Eyes: Conjunctivae/corneas clear. No icterus. No ptosis. Neck: Supple, no meningeal signs Oral: dentition fair, no thrush Cardiovascular: S1, S2 normal. Respiratory: Good air entry, clear to auscultation bilaterally GI: Soft, non-tender; bowel sounds normal. No peritoneal signs. Musculoskeletal: Right foot medial wound with missing first toe, gangrenous changes of the second toe, fourth and fifth toes. Large snider wound. Lateral foot wound is well. Skin: No rash or abscess Hem/Lymphatic: No palpable cervical or supraclavicular nodes. No lymphangitis Psych: Mood ok. Affect normal Neurological: Awake, alert, oriented. No gross abnormality - Constitutional Vitals: Vital Signs Temp Pulse Resp BP Pulse Ox 98.5 F 103 H 18 123/54 96 10/06/20 04:47 10/06/20 04:47 10/06/20 04:47 10/06/20 04:47 10/06/20 04:47 Temperature -Last 24 Hours Temperature 98.5 F Temperature 98.3 F Temperature 97.8 F - Labs CBC & Chem 7: 10/05/20 07:11 10/06/20 04:38 Labs: Abnormal lab results 10/05/20 10/05/20 10/05/20 Range/Units 07:21 11:33 22:08 POC Glucose 322 H 153 H 191 H (70-105) mg/dL 10/06/20 10/06/20 Range/Units 07:37 11:31 POC Glucose 119 H 117 H (70-105) mg/dL
--- NOTE | 2020-10-06 16:52 | Progress Note ---
Assessment and Plan Patient with significant peripheral vascular disease who is now progressed onto gangrenous changes to her forefoot on the right as well as pretibial wound with now exposed tendon. The patient will most likely need a below the knee amputat ion for definitive treatment. Would care evaluation appreciated. Subjective Date of service: 10/06/20 Principal diagnosis: PVD with gangrene Interval history: Patient with a history of peripheral vascular disease. On her initial presentation, the patient had acute arterial embolic phenomenon's with superim posed peripheral vascular disease. Ultimately this was opened however, it is likely that the patient had micro emboli in smaller vessels. The patient subsequently has developed gangrenous changes initially to her first and fifth digits which have now progressed. She did have some blistering over the anterior aspect of her lower leg which is now progressed to deep wound with exposed tendons and sloughing. The patient's foot is warm. She describes her presentation as being secondary to having a sharp burning pain with attempted ambulation. Objective - Constitutional Vitals: Vital Signs - 12hr 10/06/20 04:47 Temperature 98.5 F Pulse Rate 103 H Respiratory 18 Rate Blood Pressure 123/54 O2 Sat by Pulse 96 Oximetry General appearance: Present: no acute distress - EENT Eyes: EOM intact ENT: hearing intact - Neck Neck: normal ROM - Respiratory Respiratory effort: normal Extremities: abnormal - Gastrointestinal General gastrointestinal: Present: deferred Rectal Exam: deferred - Genitourinary Female genitourinary: deferred - Psychiatric Psychiatric: cooperative - Labs CBC & Chem 7: 10/05/20 07:11 10/06/20 04:38 Labs: Abnormal lab results 10/05/20 10/05/20 10/05/20 Range/Units 07:21 11:33 22:08 POC Glucose 322 H 153 H 191 H (70-105) mg/dL 10/06/20 10/06/20 Range/Units 07:37 11:31 POC Glucose 119 H 117 H (70-105) mg/dL Medications & Allergies - Medications Allergies/Adverse Reactions: Allergies Penicillins Allergy (Verified 10/04/20 10:45) Unknown Home Medications: Home Medications Medication Instructions Recorded Confirmed Last Taken Type Lispro Insulin [HumaLOG] See Protocol SQ ACHS 09/13/17 08/09/20 Unknown History Pantoprazole [Protonix TAB] 40 mg PO DAILY #7 tablet 06/11/18 08/09/20 Unknown Rx Zolpidem [Ambien] 5 mg PO QHS PRN #5 tablet 06/11/18 08/09/20 Unknown Rx Pantoprazole [Protonix] 40 mg PO QDAY #90 tablet 08/07/20 Unknown Rx Apixaban [Eliquis] 2.5 mg PO Q12HR #60 tablet 08/09/20 Unknown Rx Aspirin EC [Halfprin EC] 81 mg PO QDAY #30 tablet 08/09/20 Unknown Rx Insulin NPH/Regular [NovoLIN 70/30] 25 unit SUB-Q BID 30 Days units 08/09/20 Unknown Rx cilostazoL [Pletal] 100 mg PO BID #60 tablet 08/09/20 Unknown Rx oxyCODONE /ACETAMINOPHEN [Percocet 1 tab PO Q6H PRN 2 Days #12 tablet 08/09/20 Unknown Rx 5/325 mg] Active Medications: Generic Name Dose Route Start Last Admin Trade Name Freq PRN Reason Stop Dose Admin Acetaminophen 650 mg 10/04/20 22:26 Acetaminophen 325 Mg Tab PO Q4H PRN Pain MILD(1-3)/Fever >100.5/WRIGHT Albuterol 2.5 mg 10/05/20 17:59 Albuterol 2.5 Mg/3 Ml Nebu IH Q3HRT PRN Wheezing Aspirin 81 mg 10/05/20 10:00 10/06/20 09:20 Aspirin Ec 81 Mg Tab PO 81 mg QDAY MARGARET Administration Cilostazol 100 mg 10/04/20 23:00 10/06/20 09:20 Cilostazol 100 Mg Tab PO 100 mg BID MARGARET Administration Enoxaparin Sodium 60 mg 10/05/20 22:00 10/06/20 09:23 Enoxaparin 60 Mg/0.6 Ml Inj SUB-Q 60 mg Q12HR MARGARET Administration Hydromorphone HCl 0.5 mg 10/04/20 22:26 10/05/20 19:10 Hydromorphone 1 Mg/1 Ml Inj IV 0.5 mg Q3H PRN Administration Pain , Severe (7-10) Vancomycin HCl 1 gm in 250 mls @ 166.667 mls/hr 10/06/20 06:00 10/06/20 05:13 Vancomycin/Ns 1 Gm/250 Ml IV 166.667 mls/hr Q24H MARGARET Administration Levofloxacin/Dextrose 750 mg in 150 mls @ 100 mls/hr 10/06/20 09:00 10/06/20 09:19 Levaquin 750mg/150ml IV 100 mls/hr Q48HR MARGARET Administration Insulin Glargine 35 units 10/05/20 22:00 10/05/20 22:18 Insulin Glargine 100 Units/Ml SUB-Q 35 units QHS MARGARET Administration Insulin Human Lispro 0 unit 10/05/20 07:30 10/06/20 12:30 Insulin Lispro 100 Unit/Ml SUB-Q Not Given ACHS [facility] Protocol Insulin Human Lispro 8 unit 10/06/20 07:30 10/06/20 12:29 Insulin Lispro 100 Unit/Ml SUB-Q 8 unit AC MARGARET Administration Metoclopramide HCl 10 mg 10/04/20 22:26 Metoclopramide 10 Mg/2 Ml Inj IV Q6H PRN Nausea And Vomiting Nicotine 7 mg 10/05/20 10:00 10/06/20 09:19 Nicotine 7 Mg/24 Hr Patch TD 7 mg QDAY MARGARET Administration Ondansetron HCl 4 mg 10/04/20 22:26 Ondansetron 4 Mg/2 Ml Inj IV Q3H PRN Nausea And Vomiting Oxycodone/Acetaminophen 1 tab 10/04/20 22:25 10/06/20 14:08 Oxycodone /Acetaminophen 5-325mg Tab PO 1 tab Q6H PRN Administration Pain, Moderate (4-6) Pantoprazole Sodium 40 mg 10/05/20 10:00 10/06/20 09:19 Pantoprazole 40 Mg Tab PO 40 mg DAILY MARGARET Administration Sodium Chloride 10 ml 10/04/20 23:00 10/06/20 09:20 Sodium Chloride 0.9% 10 Ml Flush Syringe IV 10 ml BID MARGARET Administration Sodium Chloride 10 ml 10/04/20 22:26 Sodium Chloride 0.9% 10 Ml Flush Syringe IV PRN PRN LINE FLUSH Zolpidem Tartrate 5 mg 10/04/20 22:25 Zolpidem 5 Mg Tab PO QHS PRN Sleep
[2020-10-06] MEDS: INSULIN GLARGINE 100 UNITS/ML SUB-Q SCH (21:52)
[2020-10-07] MEDS: ZOLPIDEM 5 MG TAB PO PRN ×2 (01:25→21:42)
[2020-10-07] MEDS: VANCOMYCIN/NS 1 GM/250 ML 1 GM/250 ML BAG IV SCH (05:15)
[2020-10-07] MEDS: INSULIN LISPRO 100 UNIT/ML SUB-Q SCH ×7 (07:57→21:48)
--- NOTE | 2020-10-07 07:59 | Progress Note ---
Assessment and Plan Assessment and plan: (1) Gangrene Current Visit: Yes Status: Acute Plan to address problem: Patient has severe PAD Now patient has gangrenous changes of the right fourth and fifth toes Also osteomyelitis of first MTP joint area of the right foot and other toes Patient may need TMA Will defer to vascular surgery Patient initiated on IV Levaquin because of penicillin allergy and IV vancomycin ID consult (2) COPD (chronic obstructive pulmonary disease) Current Visit: No Status: Chronic Qualifiers: COPD type: chronic bronchitis Plan to address problem: DuoNebs as needed \Advised to stop smoking (3) Insulin dependent diabetes mellitus Current Visit: Yes Status: Chronic Plan to address problem: Poorly controlled diabetes Insulin dosage adjusted Lantus 30 units subcu at bedtime and Humalog before each meal Check hemoglobin A1c (4) PAD (peripheral artery disease) Current Visit: Yes Status: Chronic Plan to address problem: Continue cilostazol (5) Nicotine dependence Current Visit: Yes Status: Chronic Qualifiers: Nicotine product type: cigarettes Plan to address problem: Patient states she smokes only 1 cigarette/day now Patient has [id number] history of smoking Patient counseled over stopping smoking NicoDerm patch initiated (6) Anemia Current Visit: Yes Status: Acute Plan to address problem: Anemia work-up (7) Advance care planning Current Visit: No Status: Acute Plan to address problem: Advance care planning discussed Patient is a full code (8) DVT prophylaxis Current Visit: No Status: Acute Plan to address problem: On heparin and GI prophylaxis 10/05/2020 -Patient was seen by respiratory surgeon Dr. Mackay and the plan to do right BKA but patient did not decide, discussed with him and he states okay to hold the Eliquis from today. -Patient is on 25 units of 70/30 insulin twice daily but blood sugar is uncontrolled. Accu-Chek, ADA diet, adjust insulin as needed. 10/06/2020 -Patient is on IV vancomycin and Levaquin per ID recommendation. -Vascular surgery discussed with the patient for right BKA, but patient did not consent. She wants to try other interventions before amputation. Vascular surgery is following. -Patient's blood sugar is in target. Continue current medication regimens. 10/07/2020; continue with IV vancomycin and Levaquin per ID recommendation. Was seen by vascular surgery and recommend right BKA for ultimate treatment of her right lower extremity gangrene. -Patient is medically stable continue with current medications and follow vascular surgery recommendation for definitive treatment. History Interval history: Patient was seen and evaluated this morning Patient has right foot gangrene Hospitalist Physical - Physical exam Narrative exam: Not in cardiopulmonary distress. The patient appeared well nourished and normally developed. Vital signs as documented. Head exam is unremarkable. No scleral icterus . Neck is without jugular venous distension, thyromegaly, or carotid bruits. Lungs are clear to auscultation. Cardiac exam reveals regular rate and Rhythm. Abdominal exam reveals normal bowel sounds, nontender, no organomegaly. Extremities right foot gangrene. OUTREACH ANALYST: Alert and oriented 3. No focal weakness. - Constitutional Vitals: Temp Pulse Resp BP Pulse Ox 98.1 F 102 H 18 136/59 97 10/07/20 05:29 10/07/20 05:29 10/07/20 05:29 10/07/20 05:29 10/07/20 05:29 General appearance: Present: no acute distress Results - Labs CBC & Chem 7: 10/05/20 07:11 10/06/20 04:38 Labs: Laboratory Last Values WBC 6.1 K/mm3 (4.5-11.0) 10/05/20 07:11 RBC 2.87 M/mm3 (3.65-5.03) L 10/05/20 07:11 Hgb 8.6 gm/dl (10.1-14.3) L 10/05/20 07:11 Hct 24.9 % (30.3-42.9) L 10/05/20 07:11 MCV 87 fl (79-97) 10/05/20 07:11 MCH 30 pg (28-32) 10/05/20 07:11 MCHC 35 % (30-34) H 10/05/20 07:11 RDW 14.1 % (13.2-15.2) 10/05/20 07:11 Plt Count 466 K/mm3 (140-440) H 10/05/20 07:11 Lymph % (Auto) 19.9 % (13.4-35.0) 10/05/20 07:11 [place] % (Auto) 6.8 % (0.0-7.3) 10/05/20 07:11 Eos % (Auto) 5.5 % (0.0-4.3) H 10/05/20 07:11 Baso % (Auto) 1.3 % (0.0-1.8) 10/05/20 07:11 Lymph # (Auto) 1.2 K/mm3 (1.2-5.4) 10/05/20 07:11 [place] # (Auto) 0.4 K/mm3 (0.0-0.8) 10/05/20 07:11 Eos # (Auto) 0.3 K/mm3 (0.0-0.4) 10/05/20 07:11 Baso # (Auto) 0.1 K/mm3 (0.0-0.1) 10/05/20 07:11 Seg Neutrophils % 66.5 % (40.0-70.0) 10/05/20 07:11 Seg Neutrophils # 4.1 K/mm3 (1.8-7.7) 10/05/20 07:11 Sodium 137 mmol/L (137-145) 10/06/20 04:38 Potassium 3.8 mmol/L (3.6-5.0) 10/06/20 04:38 Chloride 101.2 mmol/L (98-107) 10/06/20 04:38 Carbon Dioxide 25 mmol/L (22-30) 10/06/20 04:38 Anion Gap 15 mmol/L 10/06/20 04:38 BUN 13 mg/dL (7-17) 10/06/20 04:38 Creatinine 1.0 mg/dL (0.6-1.2) 10/06/20 04:38 Estimated GFR 54 ml/min 10/06/20 04:38 BUN/Creatinine Ratio 13 % 10/06/20 04:38 Glucose 100 mg/dL (65-100) 10/06/20 04:38 POC Glucose 139 mg/dL (70-105) H 10/06/20 21:49 Hemoglobin A1c 9.5 % (4-6) H 10/05/20 07:11 Calcium 9.2 mg/dL (8.4-10.2) 10/06/20 04:38 Total Bilirubin 0.20 mg/dL (0.1-1.2) 10/05/20 07:11 AST 8 units/L (5-40) 10/05/20 07:11 ALT 6 units/L (7-56) L 10/05/20 07:11 Alkaline Phosphatase 131 units/L (35-129) H 10/05/20 07:11 Total Protein 6.5 g/dL (6.3-8.2) 10/05/20 07:11 Albumin 2.8 g/dL (3.9-5) L 10/05/20 07:11 Albumin/Globulin Ratio 0.8 % 10/05/20 07:11 Microbiology: Microbiology 10/05/20 Unknown Ankle - Right Wound Culture - Preliminary 10/04/20 11:36 Peripheral/Venous Blood Culture - Preliminary NO GROWTH AFTER 48 HOURS 10/04/20 11:36 Peripheral/Venous Blood Culture - Preliminary NO GROWTH AFTER 48 HOURS Garza/IV: Voiding Method Bedside Commode Active Medications - Current Medications Current Medications: Generic Name Dose Route Start Last Admin Trade Name Freq PRN Reason Stop Dose Admin Acetaminophen 650 mg 10/04/20 22:26 Acetaminophen 325 Mg Tab PO Q4H PRN Pain MILD(1-3)/Fever >100.5/WRIGHT Albuterol 2.5 mg 10/05/20 17:59 Albuterol 2.5 Mg/3 Ml Nebu IH Q3HRT PRN Wheezing Aspirin 81 mg 10/05/20 10:00 10/06/20 09:20 Aspirin Ec 81 Mg Tab PO 81 mg QDAY MARGARET Administration Cilostazol 100 mg 10/04/20 23:00 10/06/20 21:52 Cilostazol 100 Mg Tab PO 100 mg BID MARGARET Administration Enoxaparin Sodium 60 mg 10/05/20 22:00 10/06/20 21:52 Enoxaparin 60 Mg/0.6 Ml Inj SUB-Q 60 mg Q12HR MARGARET Administration Hydromorphone HCl 0.5 mg 10/04/20 22:26 10/05/20 19:10 Hydromorphone 1 Mg/1 Ml Inj IV 0.5 mg Q3H PRN Administration Pain , Severe (7-10) Vancomycin HCl 1 gm in 250 mls @ 166.667 mls/hr 10/06/20 06:00 10/07/20 05:15 Vancomycin/Ns 1 Gm/250 Ml IV 166.667 mls/hr Q24H MARGARET Administration Levofloxacin/Dextrose 750 mg in 150 mls @ 100 mls/hr 10/06/20 09:00 10/06/20 09:19 Levaquin 750mg/150ml IV 100 mls/hr Q48HR MARGARET Administration Insulin Glargine 35 units 10/05/20 22:00 10/06/20 21:52 Insulin Glargine 100 Units/Ml SUB-Q 35 units QHS MARGARET Administration Insulin Human Lispro 0 unit 10/05/20 07:30 10/07/20 07:57 Insulin Lispro 100 Unit/Ml SUB-Q Not Given ACHS [facility] Protocol Insulin Human Lispro 8 unit 10/06/20 07:30 10/07/20 07:57 Insulin Lispro 100 Unit/Ml SUB-Q Not Given AC [facility] Metoclopramide HCl 10 mg 10/04/20 22:26 Metoclopramide 10 Mg/2 Ml Inj IV Q6H PRN Nausea And Vomiting Nicotine 7 mg 10/05/20 10:00 10/06/20 09:19 Nicotine 7 Mg/24 Hr Patch TD 7 mg QDAY MARGARET Administration Ondansetron HCl 4 mg 10/04/20 22:26 Ondansetron 4 Mg/2 Ml Inj IV Q3H PRN Nausea And Vomiting Oxycodone/Acetaminophen 1 tab 10/04/20 22:25 10/06/20 21:55 Oxycodone /Acetaminophen 5-325mg Tab PO 1 tab Q6H PRN Administration Pain, Moderate (4-6) Pantoprazole Sodium 40 mg 10/05/20 10:00 10/06/20 09:19 Pantoprazole 40 Mg Tab PO 40 mg DAILY MARGARET Administration Sodium Chloride 10 ml 10/04/20 23:00 10/06/20 21:53 Sodium Chloride 0.9% 10 Ml Flush Syringe IV 10 ml BID MARGARET Administration Sodium Chloride 10 ml 10/04/20 22:26 Sodium Chloride 0.9% 10 Ml Flush Syringe IV PRN PRN LINE FLUSH Zolpidem Tartrate 5 mg 10/04/20 22:25 10/07/20 01:25 Zolpidem 5 Mg Tab PO 5 mg QHS PRN Administration Sleep
[2020-10-07 08:46] LABS: Calcium 8.7 mg/dL (8.4-10.2)
[2020-10-07] MEDS: oxyCODONE /ACETAMINOPHEN 5-325MG TAB PO PRN ×2 (10:14→21:42)
[2020-10-07] MEDS: PANTOPRAZOLE 40 MG TAB PO SCH (10:15)
[2020-10-07] MEDS: NICOTINE 7 MG/24 HR PATCH TD SCH (10:15)
[2020-10-07] MEDS: ENOXAPARIN 60 MG/0.6 ML INJ SUB-Q SCH ×2 (10:15→21:42)
[2020-10-07] MEDS: CILOSTAZOL 100 MG TAB PO SCH ×2 (10:15→21:42)
[2020-10-07] MEDS: ASPIRIN EC 81 MG TAB PO SCH (10:15)
--- NOTE | 2020-10-07 11:33 | Progress Note ---
Assessment and Plan Cultures: Blood culture 10/04/2020 no growth so far A/P: 74-year-old female past medical history PAD, uncontrolled diabetes, nicotine abuse admitted with right foot gangrene #Right foot gangrene and osteomyelitis: Widespread osteomyelitis seen on the foot x-ray with obvious gangrenous changes and large wounds to the foot both medially and laterally as well as the snider. I do not believe the leg is viable, however she is refusing amputation at the present time and wish to try any salvage therapy she can. She does note that she is amenable to surgery if nothing else can be done. She reports she will be moving in with her daughter in [place] after being discharged, and as such home care and home antibiotics will need to be arranged there. We will potentially arrange for home antibiotics based on whether or not she is eventually agreeable to the amputation. #PAD: With recent vascular surgery, vascular currently on board and plan for and options to restore flow to the limb #Poorly controlled diabetes: Recommend tight glycemic control for best outcomes in wound healing #Penicillin allergy: Reports remote reaction, not sure what reaction was. Has not had any in several years. Open to testing inpatient. Recs: -Wound care consult -Continue vancomycin goal trough 10-20 -Continue Levaquin for now in light of penicillin allergy. -Obtain wound culture -If debridement performed, please obtain deep cultures -Ultimately believe she will require amputation. If she continues to refuse, I would consult Dr. Blackwell to see if she needs any local debridement prior to discharge. -In her present state I doubt the efficacy of prolonged antibiotics in treating her osteomyelitis given the depth of her wounds. BKA would be curative of infection. Thank you for the consult, we will continue to follow. Manasa Augustin MD [facility] ([facility]) O: [phone] F: [phone] Subjective Date of service: 10/07/20 Principal diagnosis: PVD with gangrene Interval history: Afebrile, normal white count. No new issues. Objective - Exam Narrative Exam: Physical Exam: Constitutional: Alert, cooperative. No acute distress Head, Ears, Nose: Normocephalic, atraumatic. External ears, nose normal Eyes: Conjunctivae/corneas clear. No icterus. No ptosis. Neck: Supple, no meningeal signs Oral: dentition fair, no thrush Cardiovascular: S1, S2 normal. Respiratory: Good air entry, clear to auscultation bilaterally GI: Soft, non-tender; bowel sounds normal. No peritoneal signs. Musculoskeletal: Right foot medial wound with missing first toe, gangrenous changes of the second toe, fourth and fifth toes. Large snider wound. Lateral foot wound is well. Skin: No rash or abscess Hem/Lymphatic: No palpable cervical or supraclavicular nodes. No lymphangitis Psych: Mood ok. Affect normal Neurological: Awake, alert, oriented. No gross abnormality - Constitutional Vitals: Vital Signs Temp Pulse Resp BP Pulse Ox 97.7 F 108 H 19 154/56 97 10/07/20 10:13 10/07/20 10:13 10/07/20 10:13 10/07/20 10:13 10/07/20 10:13 Temperature -Last 24 Hours Temperature 97.7 F Temperature 98.1 F Temperature 97.9 F Temperature 97.8 F Temperature 98.5 F - Labs CBC & Chem 7: 10/05/20 07:11 10/07/20 07:25 Labs: Abnormal lab results 10/06/20 10/06/20 10/06/20 Range/Units 11:31 16:45 21:49 Sodium (137-145) mmol/L Glucose (65-100) mg/dL POC Glucose 117 H 114 H 139 H (70-105) mg/dL 10/07/20 10/07/20 10/07/20 Range/Units 07:25 07:32 11:00 Sodium 135 L (137-145) mmol/L Glucose 54 L (65-100) mg/dL POC Glucose 61 L 208 H (70-105) mg/dL
--- NOTE | 2020-10-07 17:46 | Consultation ---
History of Present Illness Consult date: 10/07/20 Chief complaint: Gangrene - RLE - History of present illness History of present illness: 74 yo uncontrolled diabetic with gangrenous wounds of right leg and foot. She continues to smoke. Vascular surgery notes read. Past History Past Medical History: COPD, diabetes, hyperlipidemia, PVD Past Surgical History: cholecystectomy, total knee replacement (Right), Other (Right great toe amputation) Social history: smoking Medications and Allergies Allergies Allergy/AdvReac Type Severity Reaction Status Date / Time Penicillins Allergy Unknown Verified 10/04/20 10:45 Home Medications Medication Instructions Recorded Confirmed Last Taken Type Lispro Insulin [HumaLOG] See Protocol SQ ACHS 09/13/17 08/09/20 Unknown History Pantoprazole [Protonix TAB] 40 mg PO DAILY #7 tablet 06/11/18 08/09/20 Unknown Rx Zolpidem [Ambien] 5 mg PO QHS PRN #5 tablet 06/11/18 08/09/20 Unknown Rx Pantoprazole [Protonix] 40 mg PO QDAY #90 tablet 08/07/20 Unknown Rx Apixaban [Eliquis] 2.5 mg PO Q12HR #60 tablet 08/09/20 Unknown Rx Aspirin EC [Halfprin EC] 81 mg PO QDAY #30 tablet 08/09/20 Unknown Rx Insulin NPH/Regular [NovoLIN 70/30] 25 unit SUB-Q BID 30 Days units 08/09/20 Unknown Rx cilostazoL [Pletal] 100 mg PO BID #60 tablet 08/09/20 Unknown Rx oxyCODONE /ACETAMINOPHEN [Percocet 1 tab PO Q6H PRN 2 Days #12 tablet 08/09/20 Unknown Rx 5/325 mg] Active Meds: Active Medications Acetaminophen (Acetaminophen 325 Mg Tab) 650 mg PO Q4H PRN PRN Reason: Pain MILD(1-3)/Fever >100.5/WRIGHT Albuterol (Albuterol 2.5 Mg/3 Ml Nebu) 2.5 mg IH Q3HRT PRN PRN Reason: Wheezing Aspirin (Aspirin Ec 81 Mg Tab) 81 mg PO QDAY [facility] Last Admin: 10/07/20 10:15 Dose: 81 mg Documented by: Cilostazol (Cilostazol 100 Mg Tab) 100 mg PO BID [facility] Last Admin: 10/07/20 10:15 Dose: 100 mg Documented by: Enoxaparin Sodium (Enoxaparin 60 Mg/0.6 Ml Inj) 60 mg SUB-Q Q12HR [facility] Last Admin: 10/07/20 10:15 Dose: 60 mg Documented by: Hydromorphone HCl (Hydromorphone 1 Mg/1 Ml Inj) 0.5 mg IV Q3H PRN PRN Reason: Pain , Severe (7-10) Last Admin: 10/05/20 19:10 Dose: 0.5 mg Documented by: Vancomycin HCl (Vancomycin/Ns 1 Gm/250 Ml) 1 gm in 250 mls @ 166.667 mls/hr IV Q24H [facility] Last Admin: 10/07/20 05:15 Dose: 166.667 mls/hr Documented by: Levofloxacin/Dextrose (Levaquin 750mg/150ml) 750 mg in 150 mls @ 100 mls/hr IV Q48HR [facility] Last Admin: 10/06/20 09:19 Dose: 100 mls/hr Documented by: Insulin Glargine (Insulin Glargine 100 Units/Ml) 35 units SUB-Q QHS [facility] Last Admin: 10/06/20 21:52 Dose: 35 units Documented by: Insulin Human Lispro (Insulin Lispro 100 Unit/Ml) 0 unit SUB-Q [facility]; Protocol Last Admin: 10/07/20 17:26 Dose: 3 unit Documented by: Insulin Human Lispro (Insulin Lispro 100 Unit/Ml) 8 unit SUB-Q [facility] Last Admin: 10/07/20 17:27 Dose: Not Given Documented by: Metoclopramide HCl (Metoclopramide 10 Mg/2 Ml Inj) 10 mg IV Q6H PRN PRN Reason: Nausea And Vomiting Nicotine (Nicotine 7 Mg/24 Hr Patch) 7 mg TD QDAY [facility] Last Admin: 10/07/20 10:15 Dose: 7 mg Documented by: Ondansetron HCl (Ondansetron 4 Mg/2 Ml Inj) 4 mg IV Q3H PRN PRN Reason: Nausea And Vomiting Oxycodone/Acetaminophen (Oxycodone /Acetaminophen 5-325mg Tab) 1 tab PO Q6H PRN PRN Reason: Pain, Moderate (4-6) Last Admin: 10/07/20 10:14 Dose: 1 tab Documented by: Pantoprazole Sodium (Pantoprazole 40 Mg Tab) 40 mg PO DAILY [facility] Last Admin: 10/07/20 10:15 Dose: 40 mg Documented by: Sodium Chloride (Sodium Chloride 0.9% 10 Ml Flush Syringe) 10 ml IV BID [facility] Last Admin: 10/07/20 10:15 Dose: 10 ml Documented by: Sodium Chloride (Sodium Chloride 0.9% 10 Ml Flush Syringe) 10 ml IV PRN PRN PRN Reason: LINE FLUSH Zolpidem Tartrate (Zolpidem 5 Mg Tab) 5 mg PO QHS PRN PRN Reason: Sleep Last Admin: 10/07/20 01:25 Dose: 5 mg Documented by: Review of Systems All systems: negative (none) Exam Vital Signs BP Pulse Ox 127/52 99 10/04/20 10:21 10/04/20 10:21 - General physical appearance Positive: well developed, well nourished, no distress - Eyes Positive: PERRL, normal occular movement - ENT Positive: normal pinna, normal nares, normal mucosa, no hearing loss, no congestion - Neck Positive: no masses, no bruits, trachea midline, no venous distension - Respiratory Positive: normal expansion, normal respiratory effort, clear to auscultation - Cardiovascular Rhythm: regular Heart Sounds: Present: S1 & S2. Absent: rub, click - Extremities Extremities: abnormal (Wound care nurse photographs reviewed. I did not take down her dressings.) - Breasts Breasts: normal, no mass, no skin changes - Abdomen Abdomen: Present: soft, bowel sounds normal. Absent: tender, distended Hernia: none - Genitourinary Male Genitourinary: normal Female Genitourinary: normal - Integumentary no rash, no growths, no abnormal pigmentation - Neurologic Neurologic: alert and oriented to time, place and person, motor strength and se nsation are grossly intact - Musculoskeletal normal gait, normal posture - Psychiatric Psychiatric: appropriate mood/affect, intact judgment & insight Results - Labs 10/05/20 07:11 10/07/20 07:25 Abnormal lab results 10/06/20 10/07/20 10/07/20 Range/Units 21:49 07:25 07:32 Sodium 135 L (137-145) mmol/L Glucose 54 L (65-100) mg/dL POC Glucose 139 H 61 L (70-105) mg/dL 10/07/20 10/07/20 Range/Units 11:00 16:47 Sodium (137-145) mmol/L Glucose (65-100) mg/dL POC Glucose 208 H 188 H (70-105) mg/dL Diabetes panel 10/07/20 Range/Units 07:25 Sodium 135 L (137-145) mmol/L Potassium 4.2 (3.6-5.0) mmol/L Chloride 100.3 (98-107) mmol/L Carbon Dioxide 25 (22-30) mmol/L BUN 13 (7-17) mg/dL Creatinine 1.1 (0.6-1.2) mg/dL Glucose 54 L (65-100) mg/dL Calcium 8.7 (8.4-10.2) mg/dL Calcium panel 10/07/20 Range/Units 07:25 Calcium 8.7 (8.4-10.2) mg/dL Pituitary panel 10/07/20 Range/Units 07:25 Sodium 135 L (137-145) mmol/L Potassium 4.2 (3.6-5.0) mmol/L Chloride 100.3 (98-107) mmol/L Carbon Dioxide 25 (22-30) mmol/L BUN 13 (7-17) mg/dL Creatinine 1.1 (0.6-1.2) mg/dL Glucose 54 L (65-100) mg/dL Calcium 8.7 (8.4-10.2) mg/dL Adrenal panel 10/07/20 Range/Units 07:25 Sodium 135 L (137-145) mmol/L Potassium 4.2 (3.6-5.0) mmol/L Chloride 100.3 (98-107) mmol/L Carbon Dioxide 25 (22-30) mmol/L BUN 13 (7-17) mg/dL Creatinine 1.1 (0.6-1.2) mg/dL Glucose 54 L (65-100) mg/dL Calcium 8.7 (8.4-10.2) mg/dL Assessment and Plan - Patient Problems (1) 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 2) Pt now agrees to proceed with right BKA. 3) Check right knee x-ray to check position of prosthesis.
[2020-10-07] MEDS: INSULIN GLARGINE 100 UNITS/ML SUB-Q SCH (21:43)
[2020-10-08] MEDS: VANCOMYCIN/NS 1 GM/250 ML 1 GM/250 ML BAG IV SCH (05:48)
--- NOTE | 2020-10-08 07:22 | Progress Note ---
Assessment and Plan Assessment and plan: (1) Gangrene Current Visit: Yes Status: Acute Plan to address problem: Patient has severe PAD Now patient has gangrenous changes of the right fourth and fifth toes Also osteomyelitis of first MTP joint area of the right foot and other toes Patient may need TMA Will defer to vascular surgery Patient initiated on IV Levaquin because of penicillin allergy and IV vancomycin ID consult (2) COPD (chronic obstructive pulmonary disease) Current Visit: No Status: Chronic Qualifiers: COPD type: chronic bronchitis Plan to address problem: DuoNebs as needed \Advised to stop smoking (3) Insulin dependent diabetes mellitus Current Visit: Yes Status: Chronic Plan to address problem: Poorly controlled diabetes Insulin dosage adjusted Lantus 30 units subcu at bedtime and Humalog before each meal Check hemoglobin A1c (4) PAD (peripheral artery disease) Current Visit: Yes Status: Chronic Plan to address problem: Continue cilostazol (5) Nicotine dependence Current Visit: Yes Status: Chronic Qualifiers: Nicotine product type: cigarettes Plan to address problem: Patient states she smokes only 1 cigarette/day now Patient has [id number] history of smoking Patient counseled over stopping smoking NicoDerm patch initiated (6) Anemia Current Visit: Yes Status: Acute Plan to address problem: Anemia work-up (7) Advance care planning Current Visit: No Status: Acute Plan to address problem: Advance care planning discussed Patient is a full code (8) DVT prophylaxis Current Visit: No Status: Acute Plan to address problem: On heparin and GI prophylaxis 10/05/2020 -Patient was seen by respiratory surgeon Dr. Mackay and the plan to do right BKA but patient did not decide, discussed with him and he states okay to hold the Eliquis from today. -Patient is on 25 units of 70/30 insulin twice daily but blood sugar is uncontrolled. Accu-Chek, ADA diet, adjust insulin as needed. 10/06/2020 -Patient is on IV vancomycin and Levaquin per ID recommendation. -Vascular surgery discussed with the patient for right BKA, but patient did not consent. She wants to try other interventions before amputation. Vascular surgery is following. -Patient's blood sugar is in target. Continue current medication regimens. 10/07/2020; continue with IV vancomycin and Levaquin per ID recommendation. Was seen by vascular surgery and recommend right BKA for ultimate treatment of her right lower extremity gangrene. -Patient is medically stable continue with current medications and follow vascular surgery recommendation for definitive treatment. 10/08/2020; patient has osteomyelitis and gangrene of the right foot. Patient is on IV vancomycin and Levaquin per ID recommendation. Vascular surgery is following the patient and recommend right BKA. Patient was also seen by wound surgeon Dr. Blackwell and he recommend right foot amputation. Patient had hypoglycemia this morning and was treated according to hypoglycemia protocol. I decreased nightly 70/30 insulin to 20 units. Continue sliding sca le insulin. Patient agreed with right BKA. History Interval history: Patient was seen and evaluated this morning Patient has right foot gangrene Patient agreed with right BKA Hospitalist Physical - Physical exam Narrative exam: Not in cardiopulmonary distress. The patient appeared well nourished and normally developed. Vital signs as documented. Head exam is unremarkable. No scleral icterus . Neck is without jugular venous distension, thyromegaly, or carotid bruits. Lungs are clear to auscultation. Cardiac exam reveals regular rate and Rhythm. Abdominal exam reveals normal bowel sounds, nontender, no organomegaly. Extremities right foot gangrene. LIME SLAKER: Alert and oriented 3. No focal weakness. - Constitutional Vitals: Temp Pulse Resp BP Pulse Ox 97.0 F L 100 H 16 105/46 98 10/08/20 05:09 10/08/20 05:09 10/08/20 05:09 10/08/20 05:09 10/08/20 05:09 General appearance: Present: no acute distress Results - Labs CBC & Chem 7: 10/05/20 07:11 10/07/20 07:25 Labs: Laboratory Last Values WBC 6.1 K/mm3 (4.5-11.0) 10/05/20 07:11 RBC 2.87 M/mm3 (3.65-5.03) L 10/05/20 07:11 Hgb 8.6 gm/dl (10.1-14.3) L 10/05/20 07:11 Hct 24.9 % (30.3-42.9) L 10/05/20 07:11 MCV 87 fl (79-97) 10/05/20 07:11 MCH 30 pg (28-32) 10/05/20 07:11 MCHC 35 % (30-34) H 10/05/20 07:11 RDW 14.1 % (13.2-15.2) 10/05/20 07:11 Plt Count 466 K/mm3 (140-440) H 10/05/20 07:11 Lymph % (Auto) 19.9 % (13.4-35.0) 10/05/20 07:11 Armstrong % (Auto) 6.8 % (0.0-7.3) 10/05/20 07:11 Eos % (Auto) 5.5 % (0.0-4.3) H 10/05/20 07:11 Baso % (Auto) 1.3 % (0.0-1.8) 10/05/20 07:11 Lymph # (Auto) 1.2 K/mm3 (1.2-5.4) 10/05/20 07:11 Armstrong # (Auto) 0.4 K/mm3 (0.0-0.8) 10/05/20 07:11 Eos # (Auto) 0.3 K/mm3 (0.0-0.4) 10/05/20 07:11 Baso # (Auto) 0.1 K/mm3 (0.0-0.1) 10/05/20 07:11 Seg Neutrophils % 66.5 % (40.0-70.0) 10/05/20 07:11 Seg Neutrophils # 4.1 K/mm3 (1.8-7.7) 10/05/20 07:11 Sodium 135 mmol/L (137-145) L 10/07/20 07:25 Potassium 4.2 mmol/L (3.6-5.0) 10/07/20 07:25 Chloride 100.3 mmol/L (98-107) 10/07/20 07:25 Carbon Dioxide 25 mmol/L (22-30) 10/07/20 07:25 Anion Gap 14 mmol/L 10/07/20 07:25 BUN 13 mg/dL (7-17) 10/07/20 07:25 Creatinine 1.1 mg/dL (0.6-1.2) 10/07/20 07:25 Estimated GFR 49 ml/min 10/07/20 07:25 BUN/Creatinine Ratio 12 % 10/07/20 07:25 Glucose 54 mg/dL (65-100) L 10/07/20 07:25 POC Glucose 269 mg/dL (70-105) H 10/07/20 21:43 Hemoglobin A1c 9.5 % (4-6) H 10/05/20 07:11 Calcium 8.7 mg/dL (8.4-10.2) 10/07/20 07:25 Total Bilirubin 0.20 mg/dL (0.1-1.2) 10/05/20 07:11 AST 8 units/L (5-40) 10/05/20 07:11 ALT 6 units/L (7-56) L 10/05/20 07:11 Alkaline Phosphatase 131 units/L (35-129) H 10/05/20 07:11 Total Protein 6.5 g/dL (6.3-8.2) 10/05/20 07:11 Albumin 2.8 g/dL (3.9-5) L 10/05/20 07:11 Albumin/Globulin Ratio 0.8 % 10/05/20 07:11 Microbiology: Microbiology 10/04/20 11:36 Peripheral/Venous Blood Culture - Preliminary NO GROWTH AFTER 72 HOURS 10/04/20 11:36 Peripheral/Venous Blood Culture - Preliminary NO GROWTH AFTER 72 HOURS 10/05/20 Unknown Ankle - Right Wound Culture - Preliminary Garza/IV: Voiding Method Bedside Commode Active Medications - Current Medications Current Medications: Generic Name Dose Route Start Last Admin Trade Name Freq PRN Reason Stop Dose Admin Acetaminophen 650 mg 10/04/20 22:26 Acetaminophen 325 Mg Tab PO Q4H PRN Pain MILD(1-3)/Fever >100.5/WRIGHT Albuterol 2.5 mg 10/05/20 17:59 Albuterol 2.5 Mg/3 Ml Nebu IH Q3HRT PRN Wheezing Aspirin 81 mg 10/05/20 10:00 10/07/20 10:15 Aspirin Ec 81 Mg Tab PO 81 mg QDAY MARGARET Administration Cilostazol 100 mg 10/04/20 23:00 10/07/20 21:42 Cilostazol 100 Mg Tab PO 100 mg BID MARGARET Administration Enoxaparin Sodium 60 mg 10/05/20 22:00 10/07/20 21:42 Enoxaparin 60 Mg/0.6 Ml Inj SUB-Q 60 mg Q12HR MARGARET Administration Hydromorphone HCl 0.5 mg 10/04/20 22:26 10/05/20 19:10 Hydromorphone 1 Mg/1 Ml Inj IV 0.5 mg Q3H PRN Administration Pain , Severe (7-10) Vancomycin HCl 1 gm in 250 mls @ 166.667 mls/hr 10/06/20 06:00 10/08/20 05:48 Vancomycin/Ns 1 Gm/250 Ml IV 166.667 mls/hr Q24H MARGARET Administration Levofloxacin/Dextrose 750 mg in 150 mls @ 100 mls/hr 10/06/20 09:00 10/06/20 09:19 Levaquin 750mg/150ml IV 100 mls/hr Q48HR MARGARET Administration Insulin Glargine 35 units 10/05/20 22:00 10/07/20 21:43 Insulin Glargine 100 Units/Ml SUB-Q 35 units QHS MARGARET Administration Insulin Human Lispro 0 unit 10/05/20 07:30 10/07/20 21:48 Insulin Lispro 100 Unit/Ml SUB-Q 2 unit ACHS MARGARET Administration Protocol Insulin Human Lispro 8 unit 10/06/20 07:30 10/07/20 17:27 Insulin Lispro 100 Unit/Ml SUB-Q Not Given [facility] Metoclopramide HCl 10 mg 10/04/20 22:26 Metoclopramide 10 Mg/2 Ml Inj IV Q6H PRN Nausea And Vomiting Nicotine 7 mg 10/05/20 10:00 10/07/20 10:15 Nicotine 7 Mg/24 Hr Patch TD 7 mg QDAY MARGARET Administration Ondansetron HCl 4 mg 10/04/20 22:26 Ondansetron 4 Mg/2 Ml Inj IV Q3H PRN Nausea And Vomiting Oxycodone/Acetaminophen 1 tab 10/04/20 22:25 10/07/20 21:42 Oxycodone /Acetaminophen 5-325mg Tab PO 1 tab Q6H PRN Administration Pain, Moderate (4-6) Pantoprazole Sodium 40 mg 10/05/20 10:00 10/07/20 10:15 Pantoprazole 40 Mg Tab PO 40 mg DAILY MARGARET Administration Sodium Chloride 10 ml 10/04/20 23:00 10/07/20 21:44 Sodium Chloride 0.9% 10 Ml Flush Syringe IV 10 ml BID MARGARET Administration Sodium Chloride 10 ml 10/04/20 22:26 Sodium Chloride 0.9% 10 Ml Flush Syringe IV PRN PRN LINE FLUSH Zolpidem Tartrate 5 mg 10/04/20 22:25 10/07/20 21:42 Zolpidem 5 Mg Tab PO 5 mg QHS PRN Administration Sleep
[2020-10-08] MEDS ORDERED: DEXTROSE 50% IN WATER (25GM) 50 ML SYRINGE IV ONE ×2 (07:39→07:55)
[2020-10-08] MEDS: INSULIN LISPRO 100 UNIT/ML SUB-Q SCH ×7 (08:02→23:25)
--- NOTE | 2020-10-08 11:40 | Progress Note ---
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 Mackay of Vascular surgery. Dr. Mackay will do right BKA. I will sign off. Subjective Date of service: 10/08/20 Patient Reports: Positive: no new complaints Objective Vital Signs - 12hr 10/08/20 10/08/20 00:16 05:09 Temperature 97.9 F 97.0 F L Pulse Rate 105 H 100 H Respiratory 22 16 Rate Blood Pressure 136/52 105/46 O2 Sat by Pulse 97 98 Oximetry - Labs 10/05/20 07:11 10/07/20 07:25
[2020-10-08] MEDS: ASPIRIN EC 81 MG TAB PO SCH (12:24)
[2020-10-08] MEDS: ENOXAPARIN 60 MG/0.6 ML INJ SUB-Q SCH ×2 (12:25→22:48)
[2020-10-08] MEDS: NICOTINE 7 MG/24 HR PATCH TD SCH (12:25)
[2020-10-08] MEDS: CILOSTAZOL 100 MG TAB PO SCH ×2 (12:26→22:48)
[2020-10-08] MEDS: PANTOPRAZOLE 40 MG TAB PO SCH (12:27)
[2020-10-08] MEDS: oxyCODONE /ACETAMINOPHEN 5-325MG TAB PO PRN ×2 (15:24→22:54)
[2020-10-08] MEDS: INSULIN GLARGINE 100 UNITS/ML SUB-Q SCH (23:24)
--- NOTE | 2020-10-09 07:40 | Progress Note ---
Assessment and Plan Assessment and plan: (1) Gangrene Current Visit: Yes Status: Acute Plan to address problem: Patient has severe PAD Now patient has gangrenous changes of the right fourth and fifth toes Also osteomyelitis of first MTP joint area of the right foot and other toes Patient may need TMA Will defer to vascular surgery Patient initiated on IV Levaquin because of penicillin allergy and IV vancomycin ID consult (2) COPD (chronic obstructive pulmonary disease) Current Visit: No Status: Chronic Qualifiers: COPD type: chronic bronchitis Plan to address problem: DuoNebs as needed \Advised to stop smoking (3) Insulin dependent diabetes mellitus Current Visit: Yes Status: Chronic Plan to address problem: Poorly controlled diabetes Insulin dosage adjusted Lantus 30 units subcu at bedtime and Humalog before each meal Check hemoglobin A1c (4) PAD (peripheral artery disease) Current Visit: Yes Status: Chronic Plan to address problem: Continue cilostazol (5) Nicotine dependence Current Visit: Yes Status: Chronic Qualifiers: Nicotine product type: cigarettes Plan to address problem: Patient states she smokes only 1 cigarette/day now Patient has [id number] history of smoking Patient counseled over stopping smoking NicoDerm patch initiated (6) Anemia Current Visit: Yes Status: Acute Plan to address problem: Anemia work-up (7) Advance care planning Current Visit: No Status: Acute Plan to address problem: Advance care planning discussed Patient is a full code (8) DVT prophylaxis Current Visit: No Status: Acute Plan to address problem: On heparin and GI prophylaxis 10/05/2020 -Patient was seen by respiratory surgeon Dr. Mackay and the plan to do right BKA but patient did not decide, discussed with him and he states okay to hold the Eliquis from today. -Patient is on 25 units of 70/30 insulin twice daily but blood sugar is uncontrolled. Accu-Chek, ADA diet, adjust insulin as needed. 10/06/2020 -Patient is on IV vancomycin and Levaquin per ID recommendation. -Vascular surgery discussed with the patient for right BKA, but patient did not consent. She wants to try other interventions before amputation. Vascular surgery is following. -Patient's blood sugar is in target. Continue current medication regimens. 10/07/2020; continue with IV vancomycin and Levaquin per ID recommendation. Was seen by vascular surgery and recommend right BKA for ultimate treatment of her right lower extremity gangrene. -Patient is medically stable continue with current medications and follow vascular surgery recommendation for definitive treatment. 10/08/2020; patient has osteomyelitis and gangrene of the right foot. Patient is on IV vancomycin and Levaquin per ID recommendation. Vascular surgery is following the patient and recommend right BKA. Patient was also seen by wound surgeon Dr. Blackwell and he recommend right foot amputation. Patient had hypoglycemia this morning and was treated according to hypoglycemia protocol. I decreased nightly 70/30 insulin to 20 units. Continue sliding sca le insulin. Patient agreed with right BKA. 10/09/2020; osteomyelitis of the right foot. Patient will have right BKA. Follow with vascular surgery. History Interval history: Patient was seen and evaluated this morning Patient has right foot gangrene Patient agreed with right BKA Hospitalist Physical - Physical exam Narrative exam: Not in cardiopulmonary distress. The patient appeared well nourished and normally developed. Vital signs as documented. Head exam is unremarkable. No scleral icterus . Neck is without jugular venous distension, thyromegaly, or carotid bruits. Lungs are clear to auscultation. Cardiac exam reveals regular rate and Rhythm. Abdominal exam reveals normal bowel sounds, nontender, no organomegaly. Extremities right foot gangrene. WHITE SOURER: Alert and oriented 3. No focal weakness. - Constitutional Vitals: Temp Pulse Resp BP Pulse Ox 98.4 F 96 H 16 123/56 97 10/09/20 04:01 10/09/20 04:01 10/09/20 04:01 10/09/20 04:01 10/09/20 04:01 General appearance: Present: no acute distress Results - Labs CBC & Chem 7: 10/05/20 07:11 10/07/20 07:25 Labs: Laboratory Last Values WBC 6.1 K/mm3 (4.5-11.0) 10/05/20 07:11 RBC 2.87 M/mm3 (3.65-5.03) L 10/05/20 07:11 Hgb 8.6 gm/dl (10.1-14.3) L 10/05/20 07:11 Hct 24.9 % (30.3-42.9) L 10/05/20 07:11 MCV 87 fl (79-97) 10/05/20 07:11 MCH 30 pg (28-32) 10/05/20 07:11 MCHC 35 % (30-34) H 10/05/20 07:11 RDW 14.1 % (13.2-15.2) 10/05/20 07:11 Plt Count 466 K/mm3 (140-440) H 10/05/20 07:11 Lymph % (Auto) 19.9 % (13.4-35.0) 10/05/20 07:11 Lipscomb % (Auto) 6.8 % (0.0-7.3) 10/05/20 07:11 Eos % (Auto) 5.5 % (0.0-4.3) H 10/05/20 07:11 Baso % (Auto) 1.3 % (0.0-1.8) 10/05/20 07:11 Lymph # (Auto) 1.2 K/mm3 (1.2-5.4) 10/05/20 07:11 Lipscomb # (Auto) 0.4 K/mm3 (0.0-0.8) 10/05/20 07:11 Eos # (Auto) 0.3 K/mm3 (0.0-0.4) 10/05/20 07:11 Baso # (Auto) 0.1 K/mm3 (0.0-0.1) 10/05/20 07:11 Seg Neutrophils % 66.5 % (40.0-70.0) 10/05/20 07:11 Seg Neutrophils # 4.1 K/mm3 (1.8-7.7) 10/05/20 07:11 Sodium 135 mmol/L (137-145) L 10/07/20 07:25 Potassium 4.2 mmol/L (3.6-5.0) 10/07/20 07:25 Chloride 100.3 mmol/L (98-107) 10/07/20 07:25 Carbon Dioxide 25 mmol/L (22-30) 10/07/20 07:25 Anion Gap 14 mmol/L 10/07/20 07:25 BUN 13 mg/dL (7-17) 10/07/20 07:25 Creatinine 1.1 mg/dL (0.6-1.2) 10/07/20 07:25 Estimated GFR 49 ml/min 10/07/20 07:25 BUN/Creatinine Ratio 12 % 10/07/20 07:25 Glucose 54 mg/dL (65-100) L 10/07/20 07:25 POC Glucose 176 mg/dL (70-105) H 10/08/20 21:00 Hemoglobin A1c 9.5 % (4-6) H 10/05/20 07:11 Calcium 8.7 mg/dL (8.4-10.2) 10/07/20 07:25 Total Bilirubin 0.20 mg/dL (0.1-1.2) 10/05/20 07:11 AST 8 units/L (5-40) 10/05/20 07:11 ALT 6 units/L (7-56) L 10/05/20 07:11 Alkaline Phosphatase 131 units/L (35-129) H 10/05/20 07:11 Total Protein 6.5 g/dL (6.3-8.2) 10/05/20 07:11 Albumin 2.8 g/dL (3.9-5) L 10/05/20 07:11 Albumin/Globulin Ratio 0.8 % 10/05/20 07:11 Vancomycin Trough 11.7 ug/mL (5.0-20.0) 10/09/20 05:03 Microbiology: Microbiology 10/05/20 Unknown Ankle - Right Wound Culture - Final 10/04/20 11:36 Peripheral/Venous Blood Culture - Preliminary NO GROWTH AFTER 4 DAYS 10/04/20 11:36 Peripheral/Venous Blood Culture - Preliminary NO GROWTH AFTER 4 DAYS Garza/IV: Voiding Method Bedside Commode Active Medications - Current Medications Current Medications: Generic Name Dose Route Start Last Admin Trade Name Freq PRN Reason Stop Dose Admin Acetaminophen 650 mg 10/04/20 22:26 Acetaminophen 325 Mg Tab PO Q4H PRN Pain MILD(1-3)/Fever >100.5/WRIGHT Albuterol 2.5 mg 10/05/20 17:59 Albuterol 2.5 Mg/3 Ml Nebu IH Q3HRT PRN Wheezing Aspirin 81 mg 10/05/20 10:00 10/08/20 12:24 Aspirin Ec 81 Mg Tab PO 81 mg QDAY MARGARET Administration Cilostazol 100 mg 10/04/20 23:00 10/08/20 22:48 Cilostazol 100 Mg Tab PO 100 mg BID MARGARET Administration Enoxaparin Sodium 60 mg 10/05/20 22:00 10/08/20 22:48 Enoxaparin 60 Mg/0.6 Ml Inj SUB-Q 60 mg Q12HR MARGARET Administration Hydromorphone HCl 0.5 mg 10/04/20 22:26 10/05/20 19:10 Hydromorphone 1 Mg/1 Ml Inj IV 0.5 mg Q3H PRN Administration Pain , Severe (7-10) Vancomycin HCl 1 gm in 250 mls @ 166.667 mls/hr 10/06/20 06:00 10/08/20 05:48 Vancomycin/Ns 1 Gm/250 Ml IV 166.667 mls/hr Q24H MARGARET Administration Levofloxacin/Dextrose 750 mg in 150 mls @ 100 mls/hr 10/06/20 09:00 10/08/20 12:29 Levaquin 750mg/150ml IV 100 mls/hr Q48HR MARGARET Administration Insulin Glargine 20 units 10/08/20 22:00 10/08/20 23:24 Insulin Glargine 100 Units/Ml SUB-Q 20 units QHS MARGARET Administration Insulin Human Lispro 0 unit 10/05/20 07:30 10/08/20 23:25 Insulin Lispro 100 Unit/Ml SUB-Q 2 unit ACHS MARGARET Administration Protocol Insulin Human Lispro 8 unit 10/06/20 07:30 10/08/20 17:56 Insulin Lispro 100 Unit/Ml SUB-Q Not Given AC [facility] Metoclopramide HCl 10 mg 10/04/20 22:26 Metoclopramide 10 Mg/2 Ml Inj IV Q6H PRN Nausea And Vomiting Nicotine 7 mg 10/05/20 10:00 10/08/20 12:25 Nicotine 7 Mg/24 Hr Patch TD 7 mg QDAY MARGARET Administration Ondansetron HCl 4 mg 10/04/20 22:26 Ondansetron 4 Mg/2 Ml Inj IV Q3H PRN Nausea And Vomiting Oxycodone/Acetaminophen 1 tab 10/04/20 22:25 10/08/20 22:54 Oxycodone /Acetaminophen 5-325mg Tab PO 1 tab Q6H PRN Administration Pain, Moderate (4-6) Pantoprazole Sodium 40 mg 10/05/20 10:00 10/08/20 12:27 Pantoprazole 40 Mg Tab PO 40 mg DAILY MARGARET Administration Sodium Chloride 10 ml 10/04/20 23:00 10/08/20 22:48 Sodium Chloride 0.9% 10 Ml Flush Syringe IV 10 ml BID MARGARET Administration Sodium Chloride 10 ml 10/04/20 22:26 Sodium Chloride 0.9% 10 Ml Flush Syringe IV PRN PRN LINE FLUSH Zolpidem Tartrate 5 mg 10/04/20 22:25 10/07/20 21:42 Zolpidem 5 Mg Tab PO 5 mg QHS PRN Administration Sleep
[2020-10-09] MEDS: INSULIN LISPRO 100 UNIT/ML SUB-Q SCH ×7 (07:52→22:33)
[2020-10-09] MEDS: VANCOMYCIN/NS 1 GM/250 ML 1 GM/250 ML BAG IV SCH (07:56)
[2020-10-09] MEDS: ASPIRIN EC 81 MG TAB PO SCH (10:33)
[2020-10-09] MEDS: CILOSTAZOL 100 MG TAB PO SCH ×2 (10:33→22:31)
[2020-10-09] MEDS: NICOTINE 7 MG/24 HR PATCH TD SCH (10:33)
[2020-10-09] MEDS: PANTOPRAZOLE 40 MG TAB PO SCH (10:33)
[2020-10-09] MEDS: ENOXAPARIN 60 MG/0.6 ML INJ SUB-Q SCH ×2 (10:34→22:31)
[2020-10-09] MEDS: oxyCODONE /ACETAMINOPHEN 5-325MG TAB PO PRN ×2 (13:57→22:40)
--- NOTE | 2020-10-09 16:44 | Event Note ---
Date: 10/09/20 Discussed the continued need for a right BKA. Patient is agreeable. My next operative day is Saturday, will add to the OR schedule for Saturday.
--- NOTE | 2020-10-09 17:19 | Progress Note ---
Assessment and Plan Cultures: Blood culture 10/04/2020 no growth so far A/P: 74-year-old female past medical history PAD, uncontrolled diabetes, nicotine abuse admitted with right foot gangrene #Right foot gangrene and osteomyelitis: Widespread osteomyelitis seen on the foot x-ray with obvious gangrenous changes and large wounds to the foot both medially and laterally as well as the snider. I do not believe the leg is viable, however she is refusing amputation at the present time and wish to try any salvage therapy she can. She does note that she is amenable to surgery if nothing else can be done. She reports she will be moving in with her daughter in [place] after being discharged, and as such home care and home antibiotics will need to be arranged there. We will potentially arrange for home antibiotics based on whether or not she is eventually agreeable to the amputation. #PAD: With recent vascular surgery, vascular currently on board and plan for and options to restore flow to the limb #Poorly controlled diabetes: Recommend tight glycemic control for best outcomes in wound healing #Penicillin allergy: Reports remote reaction, not sure what reaction was. Has not had any in several years. Open to testing inpatient. Recs: -BKA will be curative of infection. Continue antibiotics through surgery -Continue vancomycin goal trough 10-20 -Stop Levaquin Thank you for the consult, we will continue to follow. Dr. Woods taking over tomorrow Manasa Augustin MD [facility] ([facility]) O: [phone] F: [phone] Subjective Date of service: 10/09/20 Principal diagnosis: PVD with gangrene Interval history: Patient now agreeable to BKA no other changes at the present time. Objective - Exam Narrative Exam: Physical Exam: Constitutional: Alert, cooperative. No acute distress Head, Ears, Nose: Normocephalic, atraumatic. External ears, nose normal Eyes: Conjunctivae/corneas clear. No icterus. No ptosis. Neck: Supple, no meningeal signs Oral: dentition fair, no thrush Cardiovascular: S1, S2 normal. Respiratory: Good air entry, clear to auscultation bilaterally GI: Soft, non-tender; bowel sounds normal. No peritoneal signs. Musculoskeletal: Right foot medial wound with missing first toe, gangrenous changes of the second toe, fourth and fifth toes. Large snider wound. Lateral foot wound is well. Skin: No rash or abscess Hem/Lymphatic: No palpable cervical or supraclavicular nodes. No lymphangitis Psych: Mood ok. Affect normal Neurological: Awake, alert, oriented. No gross abnormality - Constitutional Vitals: Vital Signs Temp Pulse Resp BP Pulse Ox 98.1 F 106 H 16 132/52 97 10/09/20 12:38 10/09/20 12:38 10/09/20 12:38 10/09/20 12:38 10/09/20 12:38 Temperature -Last 24 Hours Temperature 98.1 F Temperature 98.4 F Temperature 98.6 F - Labs CBC & Chem 7: 10/05/20 07:11 10/07/20 07:25 Labs: Abnormal lab results 10/08/20 10/08/20 10/09/20 Range/Units 16:19 21:00 07:40 POC Glucose 114 H 176 H 108 H (70-105) mg/dL 10/09/20 10/09/20 Range/Units 10:47 16:21 POC Glucose 261 H 125 H (70-105) mg/dL
[2020-10-09] MEDS: ZOLPIDEM 5 MG TAB PO PRN (22:31)
[2020-10-09] MEDS: INSULIN GLARGINE 100 UNITS/ML SUB-Q SCH (22:32)
[2020-10-10] MEDS: VANCOMYCIN/NS 1 GM/250 ML 1 GM/250 ML BAG IV SCH (05:07)
[2020-10-10] MEDS: INSULIN LISPRO 100 UNIT/ML SUB-Q SCH ×7 (06:35→21:56)
[2020-10-10] MEDS: ASPIRIN EC 81 MG TAB PO SCH ×2 (08:08→19:01)
[2020-10-10] MEDS: ENOXAPARIN 60 MG/0.6 ML INJ SUB-Q SCH ×3 (08:08→21:48)
[2020-10-10] MEDS: PANTOPRAZOLE 40 MG TAB PO SCH ×2 (08:08→19:01)
[2020-10-10] MEDS: oxyCODONE /ACETAMINOPHEN 5-325MG TAB PO PRN ×2 (08:09→14:35)
[2020-10-10] MEDS: CILOSTAZOL 100 MG TAB PO SCH ×3 (08:10→21:46)
[2020-10-10] MEDS: NICOTINE 7 MG/24 HR PATCH TD SCH ×2 (08:10→19:01)
--- NOTE | 2020-10-10 12:11 | Progress Note ---
Assessment and Plan Assessment and plan: 74-year-old female with history of severe peripheral artery disease and uncontrolled diabetes and long-term smoking comes in for gangrenous changes of the right foot for the last 10 days. Patient also has a history of COPD. There are fourth and the fifth digit of the right foot are black and gangrenous. Unable to walk. 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 Patient had extensive interventional vascular surgery on 08/04/2020. Patient was recently admitted in the last admission was reviewed. She had a bulla of her right lower Extremity which has resulted in a chronic wound and has a deep tissue injury at the dorsal for proximal foot at the time of last discharge around 08/04/2020 no patient has gangrenous changes in the right foot especially around the right fourth and fifth toes and is unable to walk. No fever or chills. Last admission reviewed. Last admission was in August 04-. Patient informs me that although started following her knee surgery and unable to continue therapy due to Covid. 10/05/2020 -Patient was seen by respiratory surgeon Dr. Mackay and the plan to do right BKA but patient did not decide, discussed with him and he states okay to hold the El iquis from today. -Patient is on 25 units of 70/30 insulin twice daily but blood sugar is uncontrolled. Accu-Chek, ADA diet, adjust insulin as needed. 10/06/2020 -Patient is on IV vancomycin and Levaquin per ID recommendation. -Vascular surgery discussed with the patient for right BKA, but patient did not consent. She wants to try other interventions before amputation. Vascular surgery is following. -Patient's blood sugar is in target. Continue current medication regimens. 10/07/2020; continue with IV vancomycin and Levaquin per ID recommendation. Was seen by vascular surgery and recommend right BKA for ultimate treatment of her right lower extremity gangrene. -Patient is medically stable continue with current medications and follow vascular surgery recommendation for definitive treatment. 10/08/2020; patient has osteomyelitis and gangrene of the right foot. Patient is on IV vancomycin and Levaquin per ID recommendation. Vascular surgery is following the patient and recommend right BKA. Patient was also seen by wound surgeon Dr. Blackwell and he recommend right foot amputation. Patient had hypoglycemia this morning and was treated according to hypoglycemia protocol. I decreased nightly 70/30 insulin to 20 units. Continue sliding scale insulin. Patient agreed with right BKA. 10/09/2020; osteomyelitis of the right foot. Patient will have right BKA. Follow with vascular surgery. 10/10: Continue aggressive management of insulin. Patient is for right BKA in a.m. Vascular surgery following. Monitor for hypoglycemia. Will discuss with vascular surgery if okay for patient to take oral meds in the morning otherwise they could be changed to IV. Plan discussed with the patient in detail, antibiotics noted. (1) Gangrene Current Visit: Yes Status: Acute Plan to address problem: Patient has severe PAD Now patient has gangrenous changes of the right fourth and fifth toes Also osteomyelitis of first MTP joint area of the right foot and other toes Patient may need TMA Will defer to vascular surgery Patient initiated on IV Levaquin because of penicillin allergy and IV vancomycin ID consult (2) COPD (chronic obstructive pulmonary disease) Current Visit: No Status: Chronic Qualifiers: COPD type: chronic bronchitis Plan to address problem: DuoNebs as needed \Advised to stop smoking (3) Insulin dependent diabetes mellitus Current Visit: Yes Status: Chronic Plan to address problem: Poorly controlled diabetes Insulin dosage adjusted Lantus 30 units subcu at bedtime and Humalog before each meal Check hemoglobin A1c (4) PAD (peripheral artery disease) Current Visit: Yes Status: Chronic Plan to address problem: Continue cilostazol (5) Nicotine dependence Current Visit: Yes Status: Chronic Qualifiers: Nicotine product type: cigarettes Plan to address problem: Patient states she smokes only 1 cigarette/day now Patient has [id number] history of smoking Patient counseled over stopping smoking NicoDerm patch initiated (6) Anemia Current Visit: Yes Status: Acute Plan to address problem: Anemia work-up (7) Advance care planning Current Visit: No Status: Acute Plan to address problem: Advance care planning discussed Patient is a full code (8) DVT prophylaxis Current Visit: No Status: Acute Plan to address problem: On heparin and GI prophylaxis History Interval history: Patient seen and examined resting comfortably no new complaints apprehensive about surgery but stated she knows he has to be done. Hospitalist Physical - Physical exam Narrative exam: VITAL SIGNS: Reviewed. GENERAL: The patient appears normally developed, Vital signs as documented. HEAD: No signs of head trauma. EYES: Pupils are equal. Extraocular motions intact. EARS: Hearing grossly intact. MOUTH: Oropharynx is normal. NECK: No adenopathy, no JVD. CHEST: Chest with clear breath sounds bilaterally. No wheezes, rales, or rhonchi. CARDIAC: Regular rate and rhythm. S1 and S2, without murmurs, gallops, or rubs. VASCULAR: No Edema. Peripheral pulses normal and equal in all extremities. ABDOMEN: Soft, non tender and non distended. No rebound or guarding, and no masses palpated. Bowel Sounds normal. MUSCULOSKELETAL: Good range of motion of all major joints except right lower extremity with right foot gangrene dressing up to the knee. Met with the wound goals. NEUROLOGIC EXAM: Alert and oriented x 3 No focal sensory or strength deficits. Speech normal. Follows commands. PSYCHIATRIC: Mood normal. SKIN: detail exam as documented in skin assessment - Constitutional Vitals: Temp Pulse Resp BP Pulse Ox 97.6 F 104 H 20 116/45 96 10/10/20 11:04 10/10/20 11:04 10/10/20 11:04 10/10/20 11:04 10/10/20 11:04 General appearance: Present: no acute distress Results - Labs CBC & Chem 7: 10/05/20 07:11 10/07/20 07:25 Labs: Laboratory Last Values WBC 6.1 K/mm3 (4.5-11.0) 10/05/20 07:11 RBC 2.87 M/mm3 (3.65-5.03) L 10/05/20 07:11 Hgb 8.6 gm/dl (10.1-14.3) L 10/05/20 07:11 Hct 24.9 % (30.3-42.9) L 10/05/20 07:11 MCV 87 fl (79-97) 10/05/20 07:11 MCH 30 pg (28-32) 10/05/20 07:11 MCHC 35 % (30-34) H 10/05/20 07:11 RDW 14.1 % (13.2-15.2) 10/05/20 07:11 Plt Count 466 K/mm3 (140-440) H 10/05/20 07:11 Lymph % (Auto) 19.9 % (13.4-35.0) 10/05/20 07:11 [place] % (Auto) 6.8 % (0.0-7.3) 10/05/20 07:11 Eos % (Auto) 5.5 % (0.0-4.3) H 10/05/20 07:11 Baso % (Auto) 1.3 % (0.0-1.8) 10/05/20 07:11 Lymph # (Auto) 1.2 K/mm3 (1.2-5.4) 10/05/20 07:11 [place] # (Auto) 0.4 K/mm3 (0.0-0.8) 10/05/20 07:11 Eos # (Auto) 0.3 K/mm3 (0.0-0.4) 10/05/20 07:11 Baso # (Auto) 0.1 K/mm3 (0.0-0.1) 10/05/20 07:11 Seg Neutrophils % 66.5 % (40.0-70.0) 10/05/20 07:11 Seg Neutrophils # 4.1 K/mm3 (1.8-7.7) 10/05/20 07:11 Sodium 135 mmol/L (137-145) L 10/07/20 07:25 Potassium 4.2 mmol/L (3.6-5.0) 10/07/20 07:25 Chloride 100.3 mmol/L (98-107) 10/07/20 07:25 Carbon Dioxide 25 mmol/L (22-30) 10/07/20 07:25 Anion Gap 14 mmol/L 10/07/20 07:25 BUN 13 mg/dL (7-17) 10/07/20 07:25 Creatinine 1.1 mg/dL (0.6-1.2) 10/07/20 07:25 Estimated GFR 49 ml/min 10/07/20 07:25 BUN/Creatinine Ratio 12 % 10/07/20 07:25 Glucose 54 mg/dL (65-100) L 10/07/20 07:25 POC Glucose 197 mg/dL (70-105) H 10/10/20 08:01 Hemoglobin A1c 9.5 % (4-6) H 10/05/20 07:11 Calcium 8.7 mg/dL (8.4-10.2) 10/07/20 07:25 Total Bilirubin 0.20 mg/dL (0.1-1.2) 10/05/20 07:11 AST 8 units/L (5-40) 10/05/20 07:11 ALT 6 units/L (7-56) L 10/05/20 07:11 Alkaline Phosphatase 131 units/L (35-129) H 10/05/20 07:11 Total Protein 6.5 g/dL (6.3-8.2) 10/05/20 07:11 Albumin 2.8 g/dL (3.9-5) L 10/05/20 07:11 Albumin/Globulin Ratio 0.8 % 10/05/20 07:11 Vancomycin Trough 11.7 ug/mL (5.0-20.0) 10/09/20 05:03 Microbiology: Microbiology 10/04/20 11:36 Peripheral/Venous Blood Culture - Final NO GROWTH AFTER 5 DAYS 10/04/20 11:36 Peripheral/Venous Blood Culture - Final NO GROWTH AFTER 5 DAYS Garza/IV: Voiding Method Bedside Commode Active Medications - Current Medications Current Medications: Generic Name Dose Route Start Last Admin Trade Name Freq PRN Reason Stop Dose Admin Acetaminophen 650 mg 10/04/20 22:26 Acetaminophen 325 Mg Tab PO Q4H PRN Pain MILD(1-3)/Fever >100.5/WRIGHT Albuterol 2.5 mg 10/05/20 17:59 Albuterol 2.5 Mg/3 Ml Nebu IH Q3HRT PRN Wheezing Aspirin 81 mg 10/05/20 10:00 10/10/20 08:08 Aspirin Ec 81 Mg Tab PO 81 mg QDAY MARGARET Administration Cilostazol 100 mg 10/04/20 23:00 10/10/20 08:10 Cilostazol 100 Mg Tab PO 100 mg BID MARGARET Administration Enoxaparin Sodium 60 mg 10/05/20 22:00 10/10/20 08:08 Enoxaparin 60 Mg/0.6 Ml Inj SUB-Q 60 mg Q12HR MARGARET Administration Hydromorphone HCl 0.5 mg 10/04/20 22:26 10/05/20 19:10 Hydromorphone 1 Mg/1 Ml Inj IV 0.5 mg Q3H PRN Administration Pain , Severe (7-10) Vancomycin HCl 1 gm in 250 mls @ 166.667 mls/hr 10/06/20 06:00 10/10/20 05:07 Vancomycin/Ns 1 Gm/250 Ml IV 166.667 mls/hr Q24H MARGARET Administration Insulin Glargine 20 units 10/08/20 22:00 10/09/20 22:32 Insulin Glargine 100 Units/Ml SUB-Q 20 units QHS MARGARET Administration Insulin Human Lispro 0 unit 10/05/20 07:30 10/10/20 06:35 Insulin Lispro 100 Unit/Ml SUB-Q 2 unit ACHS MARGARET Administration Protocol Insulin Human Lispro 8 unit 10/06/20 07:30 10/10/20 07:30 Insulin Lispro 100 Unit/Ml SUB-Q 8 unit AC MARGARET Administration Metoclopramide HCl 10 mg 10/04/20 22:26 Metoclopramide 10 Mg/2 Ml Inj IV Q6H PRN Nausea And Vomiting Nicotine 7 mg 10/05/20 10:00 10/10/20 08:10 Nicotine 7 Mg/24 Hr Patch TD 7 mg QDAY MARGARET Administration Ondansetron HCl 4 mg 10/04/20 22:26 Ondansetron 4 Mg/2 Ml Inj IV Q3H PRN Nausea And Vomiting Oxycodone/Acetaminophen 1 tab 10/04/20 22:25 10/10/20 08:09 Oxycodone /Acetaminophen 5-325mg Tab PO 1 tab Q6H PRN Administration Pain, Moderate (4-6) Pantoprazole Sodium 40 mg 10/05/20 10:00 10/10/20 08:08 Pantoprazole 40 Mg Tab PO 40 mg DAILY MARGARET Administration Sodium Chloride 10 ml 10/04/20 23:00 10/09/20 22:34 Sodium Chloride 0.9% 10 Ml Flush Syringe IV 10 ml BID MARGARET Administration Sodium Chloride 10 ml 10/04/20 22:26 Sodium Chloride 0.9% 10 Ml Flush Syringe IV PRN PRN LINE FLUSH Zolpidem Tartrate 5 mg 10/04/20 22:25 10/09/20 22:31 Zolpidem 5 Mg Tab PO 5 mg QHS PRN Administration Sleep
--- NOTE | 2020-10-10 12:44 | Progress Note ---
Assessment and Plan Cultures: Blood culture 10/04/2020 no growth so far A/P: 74-year-old female past medical history PAD, uncontrolled diabetes, nicotine abuse admitted with right foot gangrene #Right foot gangrene and osteomyelitis: Widespread osteomyelitis seen on the foot x-ray with obvious gangrenous changes and large wounds to the foot both medially and laterally as well as the snider. I do not believe the leg is viable, awaiting amputation. #PAD: vascular on board #Poorly controlled diabetes: Recommend tight glycemic control for best outcomes in wound healing #Penicillin allergy: Reports remote reaction, not sure what reaction was. Recs: -continue IV vancomycin for now -plan to stop abx 24 hours post amputation Sumit Woods MD, FACP [facility] O: [phone] F: [phone] Subjective Date of service: 10/10/20 Principal diagnosis: PVD with gangrene Interval history: Patient reports no fever. States she got some itching with the initial antibiotic that she received prior to the weekend. Doing better now. Objective - Exam Narrative Exam: Physical Exam: Constitutional: Alert, cooperative. No acute distress Head, Ears, Nose: Normocephalic, atraumatic. External ears, nose normal Eyes: Conjunctivae/corneas clear. No icterus. No ptosis. Neck: Supple, no meningeal signs Cardiovascular: S1, S2 normal. Respiratory: Good air entry, clear to auscultation bilaterally GI: Soft, non-tender; bowel sounds normal. No peritoneal signs Musculoskeletal: Right foot medial wound with missing first toe, gangrenous changes of the second toe, fourth and fifth toes. Large snider wound. Lateral foot wound is clean Skin: No rash or abscess Hem/Lymphatic: No palpable cervical or supraclavicular nodes. No lymphangitis Psych: Mood ok. Affect normal Neurological: Awake, alert, oriented. No gross abnormality - Constitutional Vitals: Vital Signs Temp Pulse Resp BP Pulse Ox 97.6 F 104 H 20 116/45 96 10/10/20 11:04 10/10/20 11:04 10/10/20 11:04 10/10/20 11:04 10/10/20 11:04 Temperature -Last 24 Hours Temperature 97.6 F Temperature 97.5 F Temperature 98.1 F - Labs CBC & Chem 7: 10/05/20 07:11 10/07/20 07:25 Labs: Abnormal lab results 10/09/20 10/09/20 10/09/20 Range/Units 07:40 10:47 16:21 POC Glucose 108 H 261 H 125 H (70-105) mg/dL 10/09/20 10/10/20 10/10/20 Range/Units 21:09 08:01 12:12 POC Glucose 291 H 197 H 115 H (70-105) mg/dL
[2020-10-10 15:39] LABS: INR 1.11 (0.87-1.13)
[2020-10-10] MEDS: ZOLPIDEM 5 MG TAB PO PRN (21:50)
[2020-10-11] MEDS: INSULIN GLARGINE 100 UNITS/ML SUB-Q SCH ×2 (00:18→23:33)
[2020-10-11] MEDS: VANCOMYCIN/NS 1 GM/250 ML 1 GM/250 ML BAG IV SCH (05:15)
[2020-10-11 06:26] LABS: Hematocrit 25.4 % (30.3-42.9); Hemoglobin 8.4 gm/dl (10.1-14.3); Mean Corpuscular HGB Conc 33 % (30-34); Mean Corpuscular Volume 86 fl (79-97); Platelet Count 482 K/mm3 (140-440); Red Blood Count 2.95 M/mm3 (3.65-5.03); Red Cell Distribution Width 14.2 % (13.2-15.2)
[2020-10-11] MEDS: INSULIN LISPRO 100 UNIT/ML SUB-Q SCH ×9 (07:30→23:46)
[2020-10-11 08:25] LABS: Calcium 8.7 mg/dL (8.4-10.2)
[2020-10-11] MEDS: CILOSTAZOL 100 MG TAB PO SCH ×3 (09:27→21:47)
[2020-10-11] MEDS: PANTOPRAZOLE 40 MG TAB PO SCH ×2 (09:27→17:47)
[2020-10-11] MEDS ORDERED: BUPIVACAINE/PF (0.25%) 2.5 MG/ML 30 ML VIAL INFILTRATI ONE ×3 (09:49→11:12)
[2020-10-11] MEDS ORDERED: LIDOCAINE MPF (2%) 20 MG/1 ML VIAL 5 ML ONE (09:49)
[2020-10-11] MEDS ORDERED: fentaNYL 100 MCG/2 ML INJ ONE (09:50)
[2020-10-11] MEDS ORDERED: propofoL 200 MG/20 ML VIAL IV ONE (09:51)
[2020-10-11] MEDS: ENOXAPARIN 60 MG/0.6 ML INJ SUB-Q SCH ×2 (10:00→21:47)
[2020-10-11] MEDS ORDERED: ONDANSETRON 4 MG/2 ML INJ IV PRN (10:03)
--- NOTE | 2020-10-11 10:03 | Anesthesia Day of Surgery ---
Anesthesia Day of Surgery - Day of Surgery Patient Examined: Yes Patient H&P Reviewed: Yes Patient is NPO: Yes
--- NOTE | 2020-10-11 10:03 | Anesthesia Consultation ---
Anesthesia Consult and Med Hx Date of service: 10/11/20 - Airway Anesthetic Teeth Evaluation: Edentulous (upper) ROM Head & Neck: Adequate Mental/Hyoid Distance: Adequate Mallampati Class: Class III Intubation Access Assessment: Possibly Difficult - Pre-Operative Health Status ASA Pre-Surgery Classification: ASA3 Proposed Anesthetic Plan: General - Pulmonary Hx Smoking: Yes (former smoker quit several years ago) Hx Respiratory Symptoms: No COPD: Yes (albuterol approx 1x/wk) Home Oxygen Therapy: No - Cardiovascular System Hx Hypertension: Yes Hx Heart Attack/AMI: No Hx Percutaneous Transluminal Coronary Angioplasty (PTCA): No Hx Cardia Arrhythmia: No Hx Peripheral Vascular Disease: Yes (PAD) - Central Nervous System CVA: No - Endocrine Hx Renal Disease: No Hx Liver Disease: No Hx Insulin Dependent Diabetes: Yes Hx Thyroid Disease: No - Hematic Hx Anemia: Yes - Other Systems Hx Obesity: No - Additional Comments Anesthesia Medical History Comments: No hx anesthetic complications. Requests anxiolytic in preop.
--- NOTE | 2020-10-11 10:14 | Progress Note ---
Assessment and Plan Assessment and plan: 74-year-old female with history of severe peripheral artery disease and uncontrolled diabetes and long-term smoking comes in for gangrenous changes of the right foot for the last 10 days. Patient also has a history of COPD. There are fourth and the fifth digit of the right foot are black and gangrenous. Unable to walk. 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 Patient had extensive interventional vascular surgery on 08/04/2020. Patient was recently admitted in the last admission was reviewed. She had a bulla of her right lower Extremity which has resulted in a chronic wound and has a deep tissue injury at the dorsal for proximal foot at the time of last discharge around 08/04/2020 no patient has gangrenous changes in the right foot especially around the right fourth and fifth toes and is unable to walk. No fever or chills. Last admission reviewed. Last admission was in August 04-. Patient informs me that although started following her knee surgery and unable to continue therapy due to Covid. 10/05/2020 -Patient was seen by respiratory surgeon Dr. Mackay and the plan to do right BKA but patient did not decide, discussed with him and he states okay to hold the El iquis from today. -Patient is on 25 units of 70/30 insulin twice daily but blood sugar is uncontrolled. Accu-Chek, ADA diet, adjust insulin as needed. 10/06/2020 -Patient is on IV vancomycin and Levaquin per ID recommendation. -Vascular surgery discussed with the patient for right BKA, but patient did not consent. She wants to try other interventions before amputation. Vascular surgery is following. -Patient's blood sugar is in target. Continue current medication regimens. 10/07/2020; continue with IV vancomycin and Levaquin per ID recommendation. Was seen by vascular surgery and recommend right BKA for ultimate treatment of her right lower extremity gangrene. -Patient is medically stable continue with current medications and follow vascular surgery recommendation for definitive treatment. 10/08/2020; patient has osteomyelitis and gangrene of the right foot. Patient is on IV vancomycin and Levaquin per ID recommendation. Vascular surgery is following the patient and recommend right BKA. Patient was also seen by wound surgeon Dr. Blackwell and he recommend right foot amputation. Patient had hypoglycemia this morning and was treated according to hypoglycemia protocol. I decreased nightly 70/30 insulin to 20 units. Continue sliding scale insulin. Patient agreed with right BKA. 10/09/2020; osteomyelitis of the right foot. Patient will have right BKA. Follow with vascular surgery. 10/10: Continue aggressive management of insulin. Patient is for right BKA in a.m. Vascular surgery following. Monitor for hypoglycemia. Will discuss with vascular surgery if okay for patient to take oral meds in the morning otherwise they could be changed to IV. Plan discussed with the patient in detail, antibiotics noted. 10/11: Patient for surgery today, Right BKA. PT/OT ordered, ID recommending stopping abx 24 hrs post op. New issues Hyponatremia: Will monitor. (1) Gangrene Current Visit: Yes Status: Acute Plan to address problem: Patient has severe PAD Now patient has gangrenous changes of the right fourth and fifth toes Also osteomyelitis of first MTP joint area of the right foot and other toes Patient may need TMA Will defer to vascular surgery Patient initiated on IV Levaquin because of penicillin allergy and IV vancomycin ID consult (2) COPD (chronic obstructive pulmonary disease) Current Visit: No Status: Chronic Qualifiers: COPD type: chronic bronchitis Plan to address problem: DuoNebs as needed \Advised to stop smoking (3) Insulin dependent diabetes mellitus Current Visit: Yes Status: Chronic Plan to address problem: Poorly controlled diabetes Insulin dosage adjusted Lantus 30 units subcu at bedtime and Humalog before each meal Check hemoglobin A1c (4) PAD (peripheral artery disease) Current Visit: Yes Status: Chronic Plan to address problem: Continue cilostazol (5) Nicotine dependence Current Visit: Yes Status: Chronic Qualifiers: Nicotine product type: cigarettes Plan to address problem: Patient states she smokes only 1 cigarette/day now Patient has [id number] history of smoking Patient counseled over stopping smoking NicoDerm patch initiated (6) Anemia Current Visit: Yes Status: Acute Plan to address problem: Anemia work-up (7) Advance care planning Current Visit: No Status: Acute Plan to address problem: Advance care planning discussed Patient is a full code (8) DVT prophylaxis Current Visit: No Status: Acute Plan to address problem: On heparin and GI prophylaxis History Interval history: Patient seen and examined resting comfortably no new complaints, for surgery today. Hospitalist Physical - Physical exam Narrative exam: VITAL SIGNS: Reviewed. GENERAL: The patient appears normally developed, Vital signs as documented. HEAD: No signs of head trauma. EYES: Pupils are equal. Extraocular motions intact. EARS: Hearing grossly intact. MOUTH: Oropharynx is normal. NECK: No adenopathy, no JVD. CHEST: Chest with clear breath sounds bilaterally. No wheezes, rales, or rhonchi. CARDIAC: Regular rate and rhythm. S1 and S2, without murmurs, gallops, or rubs. VASCULAR: No Edema. Peripheral pulses normal and equal in all extremities. ABDOMEN: Soft, non tender and non distended. No rebound or guarding, and no masses palpated. Bowel Sounds normal. MUSCULOSKELETAL: Good range of motion of all major joints except right lower extremity with right foot gangrene dressing up to the knee. Met with the wound goals. NEUROLOGIC EXAM: Alert and oriented x 3 No focal sensory or strength deficits. Speech normal. Follows commands. PSYCHIATRIC: Mood normal. SKIN: detail exam as documented in skin assessment - Constitutional Vitals: Temp Pulse Resp BP Pulse Ox 98.2 F 103 H 20 137/54 94 10/11/20 05:03 10/11/20 05:03 10/11/20 05:03 10/11/20 05:03 10/11/20 05:03 General appearance: Present: no acute distress Results - Labs CBC & Chem 7: 10/11/20 05:26 10/11/20 05:26 Labs: Laboratory Last Values WBC 8.2 K/mm3 (4.5-11.0) 10/11/20 05:26 RBC 2.95 M/mm3 (3.65-5.03) L 10/11/20 05:26 Hgb 8.4 gm/dl (10.1-14.3) L 10/11/20 05:26 Hct 25.4 % (30.3-42.9) L 10/11/20 05:26 MCV 86 fl (79-97) 10/11/20 05:26 MCH 29 pg (28-32) 10/11/20 05:26 MCHC 33 % (30-34) 10/11/20 05:26 RDW 14.2 % (13.2-15.2) 10/11/20 05:26 Plt Count 482 K/mm3 (140-440) H 10/11/20 05:26 Lymph % (Auto) 19.9 % (13.4-35.0) 10/05/20 07:11 Mccormick % (Auto) 6.8 % (0.0-7.3) 10/05/20 07:11 Eos % (Auto) 5.5 % (0.0-4.3) H 10/05/20 07:11 Baso % (Auto) 1.3 % (0.0-1.8) 10/05/20 07:11 Lymph # (Auto) 1.2 K/mm3 (1.2-5.4) 10/05/20 07:11 Mccormick # (Auto) 0.4 K/mm3 (0.0-0.8) 10/05/20 07:11 Eos # (Auto) 0.3 K/mm3 (0.0-0.4) 10/05/20 07:11 Baso # (Auto) 0.1 K/mm3 (0.0-0.1) 10/05/20 07:11 Seg Neutrophils % 66.5 % (40.0-70.0) 10/05/20 07:11 Seg Neutrophils # 4.1 K/mm3 (1.8-7.7) 10/05/20 07:11 PT 14.1 Sec. (12.2-14.9) 10/10/20 14:29 INR 1.11 (0.87-1.13) 10/10/20 14:29 Sodium 132 mmol/L (137-145) L 10/11/20 05:26 Potassium 4.4 mmol/L (3.6-5.0) 10/11/20 05:26 Chloride 98.7 mmol/L (98-107) 10/11/20 05:26 Carbon Dioxide 24 mmol/L (22-30) 10/11/20 05:26 Anion Gap 14 mmol/L 10/11/20 05:26 BUN 18 mg/dL (7-17) H 10/11/20 05:26 Creatinine 1.2 mg/dL (0.6-1.2) 10/11/20 05:26 Estimated GFR 44 ml/min 10/11/20 05:26 BUN/Creatinine Ratio 15 % 10/11/20 05:26 Glucose 231 mg/dL (65-100) H 10/11/20 05:26 POC Glucose 212 mg/dL (70-105) H 10/11/20 07:38 Hemoglobin A1c 9.5 % (4-6) H 10/05/20 07:11 Calcium 8.7 mg/dL (8.4-10.2) 10/11/20 05:26 Total Bilirubin 0.20 mg/dL (0.1-1.2) 10/05/20 07:11 AST 8 units/L (5-40) 10/05/20 07:11 ALT 6 units/L (7-56) L 10/05/20 07:11 Alkaline Phosphatase 131 units/L (35-129) H 10/05/20 07:11 Total Protein 6.5 g/dL (6.3-8.2) 10/05/20 07:11 Albumin 2.8 g/dL (3.9-5) L 10/05/20 07:11 Albumin/Globulin Ratio 0.8 % 10/05/20 07:11 Vancomycin Trough 11.7 ug/mL (5.0-20.0) 10/09/20 05:03 Blood Type A POSITIVE 10/11/20 05:30 Antibody Screen Negative 10/11/20 05:30 Garza/IV: Voiding Method Bedside Commode Active Medications - Current Medications Current Medications: Generic Name Dose Route Start Last Admin Trade Name Freq PRN Reason Stop Dose Admin Acetaminophen 650 mg 10/04/20 22:26 Acetaminophen 325 Mg Tab PO Q4H PRN Pain MILD(1-3)/Fever >100.5/WRIGHT Albuterol 2.5 mg 10/05/20 17:59 Albuterol 2.5 Mg/3 Ml Nebu IH Q3HRT PRN Wheezing Aspirin 81 mg 10/05/20 10:00 10/10/20 19:01 Aspirin Ec 81 Mg Tab PO Not Given QDAY MARGARET Cilostazol 100 mg 10/04/20 23:00 10/11/20 09:27 Cilostazol 100 Mg Tab PO Not Given BID MARGARET Enoxaparin Sodium 60 mg 10/05/20 22:00 10/10/20 21:48 Enoxaparin 60 Mg/0.6 Ml Inj SUB-Q 60 mg Q12HR MARGARET Administration Hydromorphone HCl 0.5 mg 10/04/20 22:26 10/05/20 19:10 Hydromorphone 1 Mg/1 Ml Inj IV 0.5 mg Q3H PRN Administration Pain , Severe (7-10) Hydromorphone HCl 0.5 mg 10/11/20 10:03 Hydromorphone 1 Mg/1 Ml Inj IV Q10MIN PRN Pain , Severe (7-10) Vancomycin HCl 1 gm in 250 mls @ 166.667 mls/hr 10/06/20 06:00 10/11/20 05:15 Vancomycin/Ns 1 Gm/250 Ml IV 166.667 mls/hr Q24H MARGARET Administration Lactated Ringer's 1,000 mls @ 100 mls/hr 10/11/20 10:15 Lactated Ringers IV DIRECT [facility] Insulin Glargine 20 units 10/08/20 22:00 10/11/20 00:18 Insulin Glargine 100 Units/Ml SUB-Q Not Given QHS [facility] Insulin Human Lispro 0 unit 10/05/20 07:30 10/11/20 08:31 Insulin Lispro 100 Unit/Ml SUB-Q 4 unit ACHS [facility] Administration Protocol Insulin Human Lispro 8 unit 10/06/20 07:30 10/11/20 08:30 Insulin Lispro 100 Unit/Ml SUB-Q Not Given AC [facility] Metoclopramide HCl 10 mg 10/04/20 22:26 Metoclopramide 10 Mg/2 Ml Inj IV Q6H PRN Nausea And Vomiting Midazolam HCl 2 mg 10/11/20 11:00 Midazolam 2 Mg/2 Ml Inj IV 10/11/20 23:59 PREOP NR Nicotine 7 mg 10/05/20 10:00 10/10/20 19:01 Nicotine 7 Mg/24 Hr Patch TD Not Given QDAY [facility] Ondansetron HCl 4 mg 10/04/20 22:26 Ondansetron 4 Mg/2 Ml Inj IV Q3H PRN Nausea And Vomiting Ondansetron HCl 4 mg 10/11/20 10:03 Ondansetron 4 Mg/2 Ml Inj IV ONCE PRN Nausea And Vomiting Oxycodone/Acetaminophen 1 tab 10/04/20 22:25 10/10/20 14:35 Oxycodone /Acetaminophen 5-325mg Tab PO 1 tab Q6H PRN Administration Pain, Moderate (4-6) Pantoprazole Sodium 40 mg 10/05/20 10:00 10/11/20 09:27 Pantoprazole 40 Mg Tab PO Not Given DAILY MARGARET Sodium Chloride 10 ml 10/04/20 23:00 10/11/20 08:27 Sodium Chloride 0.9% 10 Ml Flush Syringe IV 10 ml BID MARGARET Administration Sodium Chloride 10 ml 10/04/20 22:26 Sodium Chloride 0.9% 10 Ml Flush Syringe IV PRN PRN LINE FLUSH Zolpidem Tartrate 5 mg 10/04/20 22:25 10/10/20 21:50 Zolpidem 5 Mg Tab PO 5 mg QHS PRN Administration Sleep
[2020-10-11] MEDS ORDERED: LACTATED RINGERS 1,000 ML IV SCH (10:15)
[2020-10-11] MEDS ORDERED: MIDAZOLAM 2 MG/2 ML INJ IV NR (11:00)
[2020-10-11] MEDS ORDERED: SODIUM CHLORIDE 0.9% IRR 1,500 ML BOTTLE IR ONE ×2 (11:12)
[2020-10-11] MEDS ORDERED: ONDANSETRON 4 MG/2 ML INJ ONE (11:23)
[2020-10-11] MEDS ORDERED: HYDROmorphone 1 MG/1 ML INJ IV PRN (11:28)
[2020-10-11] MEDS: HYDROmorphone 1 MG/1 ML INJ IV PRN ×2 (11:35→11:40)
--- NOTE | 2020-10-11 11:35 | Operative Report ---
Operative Report Operative Report: Date of procedure: 10/11/2020 Pre-operative diagnosis: Peripheral Vascular Disease with Right Lower Extremity Gangrene Post-operative diagnosis: Same Procedure(s): Right Below Knee Amputation Surgeon: Uday Mackay MD [employer] Supervisor: None Anesthesia: General Endotracheal Anesthesia EBL: Minimal Counts: Correct Complications: None Condition: Stable Findings: All remaining tissue appeared viable and free of infection. Specimen: Right Leg Sent to Pathology Indication: The patient is a 74-year-old female with a history of progressive disease who underwent endovascular intervention in attempt to salvage her right leg. She presented with worsening of her wounds and is in need of a right below-knee amputation. She was given the risk, benefits, and alternative procedures and consented to the procedure. Description of Procedure: The patient was brought to the operating room and laid in supine position after general endotracheal anesthesia the patient's right leg was prepped and draped in normal sterile fashion. The leg was raised to drain the venous blood and a tourniquet on the right thigh was then inflated to 300 mmHg. A transverse incision was then created approximately 3 fingerbreadths below the tibial tuberosity and carried the incision down distally to create a posterior flap, using a 10 blade. Electrocautery was then used to divide the muscle down to the tibia and then down to the fibula. I then used a periosteal elevator to elevate the periosteum on the tibia approximately 2 cm above the incision and then I used an oscillating saw to divide the tibia. I then used a double-action bone cutter to divide the fibula approximately 2 cm above the tibia. I divided the remainder of the soft tissue using electrocautery and passed the specimen off. I identified the neurovascular bundle and ligated both the vein and artery using 0 silk stick ties. I then used 0 silk to perform high ligation of the nerve. I achieved hemostasis using electrocautery and direct pressure. Once hemostasis was achieved I used a rasps to smooth the tibia and then copiously irrigated the wound with saline. The tourniquet was then deflated and the wound was evaluated to ensure that hemostasis had been achieved. I anesthetized the wound using 0.5% Marcaine with epinephrine. I then closed the wound in 2 layers using 2-0 Vicryl to reapproximate the fascia and pita to close the skin. I dressed the wound with Xeroform gauze, fluffs, ABDs, Kerlix, and an Choco band age. I placed an appropriately sized knee immobilizer. The patient tolerated the procedure well. All sponge, needle, and instrument counts were correct. The patient was taken to the recovery area in stable condition.
[2020-10-11] MEDS: MORPHINE 2 MG/1 ML INJ IV PRN ×2 (12:49→21:50)
--- NOTE | 2020-10-11 14:13 | Post Anesthesia Evaluation ---
- Post Anesthesia Evaluation Patient Participated: Yes Airway Patent: Yes Stable Respiratory Function: Yes Nausea/Vomiting: No Temp > 96.8F: Yes Pain Manageable: Yes Adequeate Hydration: Yes Anesthesia Complications: No
--- NOTE | 2020-10-11 14:36 | Progress Note ---
Assessment and Plan Cultures: Blood culture 10/04/2020 no growth so far A/P: 74-year-old female past medical history PAD, uncontrolled diabetes, nicotine abuse admitted with right foot gangrene #Right foot gangrene and osteomyelitis: Widespread osteomyelitis seen on the foot x-ray with obvious gangrenous changes and large wounds to the foot both medially and laterally as well as the snider. Now s/p R below knee amputation 10/11/2020. #PAD: vascular on board. #Poorly controlled diabetes: Recommend tight glycemic control for best outcomes in wound healing #Penicillin allergy: Reported remote reaction, not sure what reaction was. Recs: -stop IV vancomycin after today's dose ID will sign off. Please call with questions. Sumit Woods MD, FACP [facility] O: [phone] F: [phone] Subjective Date of service: 10/11/20 Principal diagnosis: PVD with gangrene Interval history: Afebrile. Just got back from surgery, sleeping. Objective - Exam Narrative Exam: Physical Exam: Constitutional: sleeping. No acute distress Head, Ears, Nose: Normocephalic, atraumatic. External ears, nose normal Eyes: Conjunctivae/corneas clear. No icterus. No ptosis. Neck: Supple, no meningeal signs Cardiovascular: S1, S2 normal. Respiratory: Good air entry, clear to auscultation bilaterally GI: Soft, non-tender; bowel sounds normal. No peritoneal signs Musculoskeletal: R BKA in dressing Skin: No rash or abscess Hem/Lymphatic: No palpable cervical or supraclavicular nodes. No lymphangitis Psych: no agitation Neurological: sleeping - Constitutional Vitals: Vital Signs Temp Pulse Resp BP Pulse Ox 97.4 F L 105 H 16 160/73 95 10/11/20 12:15 10/11/20 12:15 10/11/20 12:15 10/11/20 12:15 10/11/20 12:15 Temperature -Last 24 Hours Temperature 97.4 F Temperature 98.5 F Temperature 98.7 F Temperature 98.7 F Temperature 98.2 F Temperature 99.0 F Temperature 100.3 F Temperature 98.5 F - Labs CBC & Chem 7: 10/11/20 05:26 10/11/20 05:26 Labs: Abnormal lab results 10/10/20 10/10/20 10/11/20 Range/Units 16:40 21:54 04:38 RBC (3.65-5.03) M/mm3 Hgb (10.1-14.3) gm/dl Hct (30.3-42.9) % Plt Count (140-440) K/mm3 Sodium (137-145) mmol/L BUN (7-17) mg/dL Glucose (65-100) mg/dL POC Glucose 133 H 109 H 253 H (70-105) mg/dL 10/11/20 10/11/20 10/11/20 Range/Units 05:26 05:26 07:38 RBC 2.95 L (3.65-5.03) M/mm3 Hgb 8.4 L (10.1-14.3) gm/dl Hct 25.4 L (30.3-42.9) % Plt Count 482 H (140-440) K/mm3 Sodium 132 L (137-145) mmol/L BUN 18 H (7-17) mg/dL Glucose 231 H (65-100) mg/dL POC Glucose 212 H (70-105) mg/dL
[2020-10-11] MEDS: NICOTINE 7 MG/24 HR PATCH TD SCH (17:47)
[2020-10-11] MEDS: ASPIRIN EC 81 MG TAB PO SCH (17:49)
[2020-10-11] MEDS: oxyCODONE /ACETAMINOPHEN 5-325MG TAB PO PRN (17:52)
[2020-10-11] MEDS: ONDANSETRON 4 MG/2 ML INJ IV PRN (21:50)
[2020-10-12] MEDS: ONDANSETRON 4 MG/2 ML INJ IV PRN ×2 (04:12→08:17)
[2020-10-12] MEDS: VANCOMYCIN/NS 1 GM/250 ML 1 GM/250 ML BAG IV SCH (05:02)
[2020-10-12] MEDS: oxyCODONE /ACETAMINOPHEN 5-325MG TAB PO PRN ×2 (05:02→12:19)
[2020-10-12 05:38] LABS: Hematocrit 27.5 % (30.3-42.9)
[2020-10-12 05:59] LABS: BUN/Creatinine Ratio 15; Blood Urea Nitrogen 12 mg/dL (7-17); Calcium 8.4 mg/dL (8.4-10.2); Hemolysis Index 3
[2020-10-12] MEDS: INSULIN LISPRO 100 UNIT/ML SUB-Q SCH ×7 (07:30→21:57)
[2020-10-12] MEDS: ENOXAPARIN 60 MG/0.6 ML INJ SUB-Q SCH ×2 (08:17→12:00)
[2020-10-12] MEDS: ASPIRIN EC 81 MG TAB PO SCH ×2 (08:17→12:00)
[2020-10-12] MEDS: MORPHINE 2 MG/1 ML INJ IV PRN ×2 (08:17→12:02)
[2020-10-12] MEDS: CILOSTAZOL 100 MG TAB PO SCH ×2 (08:17→12:00)
--- NOTE | 2020-10-12 10:21 | Progress Note ---
Assessment and Plan Assessment and plan: 74-year-old female with history of severe peripheral artery disease and uncontrolled diabetes and long-term smoking comes in for gangrenous changes of the right foot for the last 10 days. Patient also has a history of COPD. There are fourth and the fifth digit of the right foot are black and gangrenous. Unable to walk. 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 Patient had extensive interventional vascular surgery on 08/04/2020. Patient was recently admitted in the last admission was reviewed. She had a bulla of her right lower Extremity which has resulted in a chronic wound and has a deep tissue injury at the dorsal for proximal foot at the time of last discharge around 08/04/2020 no patient has gangrenous changes in the right foot especially around the right fourth and fifth toes and is unable to walk. No fever or chills. Last admission reviewed. Last admission was in August 04-. Patient informs me that although started following her knee surgery and unable to continue therapy due to Covid. 10/05/2020 -Patient was seen by respiratory surgeon Dr. Mackay and the plan to do right BKA but patient did not decide, discussed with him and he states okay to hold the El iquis from today. -Patient is on 25 units of 70/30 insulin twice daily but blood sugar is uncontrolled. Accu-Chek, ADA diet, adjust insulin as needed. 10/06/2020 -Patient is on IV vancomycin and Levaquin per ID recommendation. -Vascular surgery discussed with the patient for right BKA, but patient did not consent. She wants to try other interventions before amputation. Vascular surgery is following. -Patient's blood sugar is in target. Continue current medication regimens. 10/07/2020; continue with IV vancomycin and Levaquin per ID recommendation. Was seen by vascular surgery and recommend right BKA for ultimate treatment of her right lower extremity gangrene. -Patient is medically stable continue with current medications and follow vascular surgery recommendation for definitive treatment. 10/08/2020; patient has osteomyelitis and gangrene of the right foot. Patient is on IV vancomycin and Levaquin per ID recommendation. Vascular surgery is following the patient and recommend right BKA. Patient was also seen by wound surgeon Dr. Blackwell and he recommend right foot amputation. Patient had hypoglycemia this morning and was treated according to hypoglycemia protocol. I decreased nightly 70/30 insulin to 20 units. Continue sliding scale insulin. Patient agreed with right BKA. 10/09/2020; osteomyelitis of the right foot. Patient will have right BKA. Follow with vascular surgery. 10/10: Continue aggressive management of insulin. Patient is for right BKA in a.m. Vascular surgery following. Monitor for hypoglycemia. Will discuss with vascular surgery if okay for patient to take oral meds in the morning otherwise they could be changed to IV. Plan discussed with the patient in detail, antibiotics noted. 10/11: Patient for surgery today, Right BKA. PT/OT ordered, ID recommending stopping abx 24 hrs post op. New issues Hyponatremia: Will monitor. 10/12: Patient is postop day 1 right BKA no complications antibiotics completed today ID signed off. Rehab potential being assessed. No new complaints we will continue to monitor hemoglobin remained stable. Patient still with mild hyponatremia we will monitor including elevated blood sugar I will adjust insulin as needed. PT evaluating, adjust pain meds. (1) Gangrene Current Visit: Yes Status: Acute Plan to address problem: Patient has severe PAD Now patient has gangrenous changes of the right fourth and fifth toes Also osteomyelitis of first MTP joint area of the right foot and other toes Patient may need TMA Will defer to vascular surgery Patient initiated on IV Levaquin because of penicillin allergy and IV vancomycin ID consult (2) COPD (chronic obstructive pulmonary disease) Current Visit: No Status: Chronic Qualifiers: COPD type: chronic bronchitis Plan to address problem: DuoNebs as needed \Advised to stop smoking (3) Insulin dependent diabetes mellitus Current Visit: Yes Status: Chronic Plan to address problem: Poorly controlled diabetes Insulin dosage adjusted Lantus 30 units subcu at bedtime and Humalog before each meal Check hemoglobin A1c (4) PAD (peripheral artery disease)- S/P lEFT BKA 10/11 Current Visit: Yes Status: Chronic Plan to address problem: Continue cilostazol (5) Nicotine dependence Current Visit: Yes Status: Chronic Qualifiers: Nicotine product type: cigarettes Plan to address problem: Patient states she smokes only 1 cigarette/day now Patient has [id number] history of smoking Patient counseled over stopping smoking NicoDerm patch initiated (6) Anemia Current Visit: Yes Status: Acute Plan to address problem: Anemia work-up (7) Advance care planning Current Visit: No Status: Acute Plan to address problem: Advance care planning discussed Patient is a full code (8) DVT prophylaxis Current Visit: No Status: Acute Plan to address problem: On heparin and GI prophylaxis History Interval history: Patient seen and examined resting comfortably no new complaints except pain medication Hospitalist Physical - Physical exam Narrative exam: VITAL SIGNS: Reviewed. GENERAL: The patient appears normally developed, Vital signs as documented. HEAD: No signs of head trauma. EYES: Pupils are equal. Extraocular motions intact. EARS: Hearing grossly intact. MOUTH: Oropharynx is normal. NECK: No adenopathy, no JVD. CHEST: Chest with clear breath sounds bilaterally. No wheezes, rales, or rhonchi. CARDIAC: Regular rate and rhythm. S1 and S2, without murmurs, gallops, or rubs. VASCULAR: No Edema. Peripheral pulses normal and equal in all extremities. ABDOMEN: Soft, non tender and non distended. No rebound or guarding, and no masses palpated. Bowel Sounds normal. MUSCULOSKELETAL: Dressing under left stump. s/p left BKA. NEUROLOGIC EXAM: Alert and oriented x 3 No focal sensory or strength deficits. Speech normal. Follows commands. PSYCHIATRIC: Mood normal. SKIN: detail exam as documented in skin assessment - Constitutional Vitals: Temp Pulse Resp BP Pulse Ox 99.2 F 102 H 18 138/63 96 10/12/20 04:29 10/12/20 04:29 10/12/20 04:29 10/12/20 04:29 10/12/20 04:29 General appearance: Present: no acute distress Results - Labs CBC & Chem 7: 10/12/20 05:05 10/12/20 05:05 Labs: Laboratory Last Values WBC 8.2 K/mm3 (4.5-11.0) 10/11/20 05:26 RBC 2.95 M/mm3 (3.65-5.03) L 10/11/20 05:26 Hgb 9.0 gm/dl (10.1-14.3) L 10/12/20 05:05 Hct 27.5 % (30.3-42.9) L 10/12/20 05:05 MCV 86 fl (79-97) 10/11/20 05:26 MCH 29 pg (28-32) 10/11/20 05:26 MCHC 33 % (30-34) 10/11/20 05:26 RDW 14.2 % (13.2-15.2) 10/11/20 05:26 Plt Count 482 K/mm3 (140-440) H 10/11/20 05:26 Lymph % (Auto) 19.9 % (13.4-35.0) 10/05/20 07:11 [place] % (Auto) 6.8 % (0.0-7.3) 10/05/20 07:11 Eos % (Auto) 5.5 % (0.0-4.3) H 10/05/20 07:11 Baso % (Auto) 1.3 % (0.0-1.8) 10/05/20 07:11 Lymph # (Auto) 1.2 K/mm3 (1.2-5.4) 10/05/20 07:11 [place] # (Auto) 0.4 K/mm3 (0.0-0.8) 10/05/20 07:11 Eos # (Auto) 0.3 K/mm3 (0.0-0.4) 10/05/20 07:11 Baso # (Auto) 0.1 K/mm3 (0.0-0.1) 10/05/20 07:11 Seg Neutrophils % 66.5 % (40.0-70.0) 10/05/20 07:11 Seg Neutrophils # 4.1 K/mm3 (1.8-7.7) 10/05/20 07:11 PT 14.1 Sec. (12.2-14.9) 10/10/20 14:29 INR 1.11 (0.87-1.13) 10/10/20 14:29 Sodium 130 mmol/L (137-145) L 10/12/20 05:05 Potassium 4.2 mmol/L (3.6-5.0) 10/12/20 05:05 Chloride 93.1 mmol/L (98-107) L 10/12/20 05:05 Carbon Dioxide 26 mmol/L (22-30) 10/12/20 05:05 Anion Gap 15 mmol/L 10/12/20 05:05 BUN 12 mg/dL (7-17) 10/12/20 05:05 Creatinine 0.8 mg/dL (0.6-1.2) 10/12/20 05:05 Estimated GFR > 60 ml/min 10/12/20 05:05 BUN/Creatinine Ratio 15 % 10/12/20 05:05 Glucose 201 mg/dL (65-100) H 10/12/20 05:05 POC Glucose 231 mg/dL (70-105) H 10/12/20 07:56 Hemoglobin A1c 9.5 % (4-6) H 10/05/20 07:11 Calcium 8.4 mg/dL (8.4-10.2) 10/12/20 05:05 Total Bilirubin 0.20 mg/dL (0.1-1.2) 10/05/20 07:11 AST 8 units/L (5-40) 10/05/20 07:11 ALT 6 units/L (7-56) L 10/05/20 07:11 Alkaline Phosphatase 131 units/L (35-129) H 10/05/20 07:11 Total Protein 6.5 g/dL (6.3-8.2) 10/05/20 07:11 Albumin 2.8 g/dL (3.9-5) L 10/05/20 07:11 Albumin/Globulin Ratio 0.8 % 10/05/20 07:11 Vancomycin Trough 11.7 ug/mL (5.0-20.0) 10/09/20 05:03 Blood Type A POSITIVE 10/11/20 05:30 Antibody Screen Negative 10/11/20 05:30 Garza/IV: Voiding Method Bedside Commode Active Medications - Current Medications Current Medications: Generic Name Dose Route Start Last Admin Trade Name Freq PRN Reason Stop Dose Admin Acetaminophen 650 mg 10/04/20 22:26 Acetaminophen 325 Mg Tab PO Q4H PRN Pain MILD(1-3)/Fever >100.5/WRIGHT Albuterol 2.5 mg 10/05/20 17:59 Albuterol 2.5 Mg/3 Ml Nebu IH Q3HRT PRN Wheezing Aspirin 81 mg 10/05/20 10:00 10/12/20 08:17 Aspirin Ec 81 Mg Tab PO 81 mg QDAY MARGARET Administration Cilostazol 100 mg 10/04/20 23:00 10/12/20 08:17 Cilostazol 100 Mg Tab PO 100 mg BID MARGARET Administration Enoxaparin Sodium 60 mg 10/05/20 22:00 10/12/20 08:17 Enoxaparin 60 Mg/0.6 Ml Inj SUB-Q 60 mg Q12HR MARGARET Administration Hydromorphone HCl 0.5 mg 10/11/20 11:28 Hydromorphone 1 Mg/1 Ml Inj IV Q3H PRN Pain , Severe (7-10) Lactated Ringer's 1,000 mls @ 100 mls/hr 10/11/20 10:15 Lactated Ringers IV DIRECT MARGARET Insulin Glargine 20 units 10/08/20 22:00 10/11/20 23:33 Insulin Glargine 100 Units/Ml SUB-Q 20 units QHS MARGARET Administration Insulin Human Lispro 0 unit 10/05/20 07:30 10/12/20 07:30 Insulin Lispro 100 Unit/Ml SUB-Q 2 unit ACHS MARGARET Administration Protocol Insulin Human Lispro 8 unit 10/06/20 07:30 10/12/20 08:09 Insulin Lispro 100 Unit/Ml SUB-Q 8 unit AC MARGARET Administration Metoclopramide HCl 10 mg 10/04/20 22:26 Metoclopramide 10 Mg/2 Ml Inj IV Q6H PRN Nausea And Vomiting Morphine Sulfate 2 mg 10/11/20 12:42 10/12/20 08:17 Morphine 2 Mg/1 Ml Inj IV 2 mg Q4H PRN Administration Pain, Moderate (4-6) Nicotine 7 mg 10/05/20 10:00 10/11/20 17:47 Nicotine 7 Mg/24 Hr Patch TD 7 mg QDAY MARGARET Administration Ondansetron HCl 4 mg 10/04/20 22:26 10/12/20 08:17 Ondansetron 4 Mg/2 Ml Inj IV 4 mg Q3H PRN Administration Nausea And Vomiting Oxycodone/Acetaminophen 1 tab 10/04/20 22:25 10/12/20 05:02 Oxycodone /Acetaminophen 5-325mg Tab PO 1 tab Q6H PRN Administration Pain, Moderate (4-6) Pantoprazole Sodium 40 mg 10/05/20 10:00 10/11/20 17:47 Pantoprazole 40 Mg Tab PO 40 mg DAILY MARGARET Administration Sodium Chloride 10 ml 10/04/20 23:00 10/11/20 21:48 Sodium Chloride 0.9% 10 Ml Flush Syringe IV 10 ml BID MARGARET Administration Sodium Chloride 10 ml 10/04/20 22:26 10/12/20 04:13 Sodium Chloride 0.9% 10 Ml Flush Syringe IV 10 ml PRN PRN Administration LINE FLUSH Zolpidem Tartrate 5 mg 10/04/20 22:25 10/10/20 21:50 Zolpidem 5 Mg Tab PO 5 mg QHS PRN Administration Sleep Nutrition/Malnutrition Assess - Dietary Evaluation Nutrition/Malnutrition Findings: Nutrition Notes Start: 10/11/20 10:20 Freq: Status: Active Protocol: Document 10/11/20 10:20 AL (Rec: 10/11/20 10:31 AL [id number]) Co-Sign 10/11/20 10:20 LP Nutrition Notes Need for Assessment generated from: LOS Initial or Follow up Assessment Current Diagnosis COPD,Diabetes Other Pertinent Diagnosis Right foot gangrene, Right BKA , anemia Current Diet NPO Labs/Tests BUN 18 BG 231 A1C 9.5 Pertinent Medications Humalog Lantus Height 5 ft 6 in Weight 60 kg [place] Body Weight (kg) 59.09 BMI 21.3 Weight Status Appropriate Subjective/Other Information LOS x 7. Pt scheduled for right BKA today and was not in room at the time of visit. Per ADL, pt tolerated 100% of diet yesterday, 10/10. Percent of energy/protein needs met: 0%/0% Burn Absent Trauma Absent Skin Integrity/Comment Necrotic gangrene on right foot. Current % PO Good (75-100%) Minimum of two criteria No physical signs of malnutrition #1 Nutrition Diagnosis Increased nutrient needs ( specify in comment below) Comments: Protein Etiology Poorly controlled DM As Evidenced by Signs and Symptoms Right foot gangrene, right BKA Is patient on ventilator? No Is Patient Ambulatory and/or Out of Bed Yes REE-([place]. Jeor-ambulatory/OOB) [ [id number] [id number]] Calculation Used for Recommendations [place] or Additional Notes Protein: 75-90 g (1.25-1.5 g/ kg) Fluid: 1 ml/kcal Nutrition Intervention Change Diet Order: Advance diet when medically feasible Goal #1 Advance diet to meet nutrient needs Goal #2 Wound healing Anticipated Discharge Needs: Consistent Carbohydrate diet Follow-Up By: 10/13/20 Additional Comments F/U for wound status, diet advancement, & PO tolerance.
[2020-10-12] MEDS: PANTOPRAZOLE 40 MG TAB PO SCH (12:01)
--- NOTE | 2020-10-12 12:23 | Progress Note ---
Assessment and Plan POD#1 s/p Right BKA Adjust oral Narcotics to control pain Convert back to oral anticoagulation Anticipate possible transfer to Acute Rehab pending insurance approval Subjective Date of service: 10/12/20 Principal diagnosis: PVD with gangrene Interval history: Patient complaining that her pain is not well controlled. Was unable to sleep well overnight. The nurse stated that some bloody drainage on the kerlix so she changed the dressing. Noted some superficial blistering on the posterior flap, otherwise incision was intact. No other events or complaints. Objective - Constitutional Vitals: Vital Signs - 12hr 10/12/20 04:29 Temperature 99.2 F Pulse Rate 102 H Respiratory 18 Rate Blood Pressure 138/63 O2 Sat by Pulse 96 Oximetry General appearance: Present: no acute distress - Neck Neck: supple - Respiratory Respiratory effort: normal - Breasts Breasts: deferred - Cardiovascular Rhythm: regular Extremities: abnormal (Right stump dressing was clean and intact during my exam) - Gastrointestinal General gastrointestinal: Present: soft - Labs CBC & Chem 7: 10/12/20 05:05 10/12/20 05:05 Labs: Abnormal lab results 10/11/20 10/11/20 10/11/20 Range/Units 10:19 15:43 22:48 Hgb (10.1-14.3) gm/dl Hct (30.3-42.9) % Sodium (137-145) mmol/L Chloride (98-107) mmol/L Glucose (65-100) mg/dL POC Glucose 122 H 188 H 159 H (70-105) mg/dL 10/12/20 10/12/20 10/12/20 Range/Units 05:05 05:05 07:56 Hgb 9.0 L (10.1-14.3) gm/dl Hct 27.5 L (30.3-42.9) % Sodium 130 L (137-145) mmol/L Chloride 93.1 L (98-107) mmol/L Glucose 201 H (65-100) mg/dL POC Glucose 231 H (70-105) mg/dL Medications & Allergies - Medications Allergies/Adverse Reactions: Allergies Penicillins Allergy (Verified 10/04/20 10:45) Unknown sutures Adverse Reaction (Uncoded 10/11/20 11:39) Swelling Home Medications: Home Medications Medication Instructions Recorded Confirmed Last Taken Type Lispro Insulin [HumaLOG] See Protocol SQ ACHS 09/13/17 10/11/20 Unknown History Pantoprazole [Protonix TAB] 40 mg PO DAILY #7 tablet 06/11/18 10/11/20 Unknown Rx Zolpidem [Ambien] 5 mg PO QHS PRN #5 tablet 06/11/18 10/11/20 Unknown Rx Pantoprazole [Protonix] 40 mg PO QDAY #90 tablet 08/07/20 10/11/20 10/03/20 10:00 Rx Apixaban [Eliquis] 2.5 mg PO Q12HR #60 tablet 08/09/20 10/11/20 Unknown Rx Aspirin EC [Halfprin EC] 81 mg PO QDAY #30 tablet 08/09/20 10/11/20 Unknown Rx Insulin NPH/Regular [NovoLIN 70/30] 25 unit SUB-Q BID 30 Days units 08/09/20 10/11/20 10/03/20 08:00 Rx cilostazoL [Pletal] 100 mg PO BID #60 tablet 08/09/20 10/11/20 Unknown Rx oxyCODONE /ACETAMINOPHEN [Percocet 1 tab PO Q6H PRN 2 Days #12 tablet 08/09/20 10/11/20 10/03/20 10:00 Rx 5/325 mg] Active Medications: Generic Name Dose Route Start Last Admin Trade Name Freq PRN Reason Stop Dose Admin Acetaminophen 650 mg 10/04/20 22:26 Acetaminophen 325 Mg Tab PO Q4H PRN Pain MILD(1-3)/Fever >100.5/WRIGHT Albuterol 2.5 mg 10/05/20 17:59 Albuterol 2.5 Mg/3 Ml Nebu IH Q3HRT PRN Wheezing Aspirin 81 mg 10/05/20 10:00 10/12/20 12:00 Aspirin Ec 81 Mg Tab PO Not Given QDAY MARGARET Cilostazol 100 mg 10/04/20 23:00 10/12/20 12:00 Cilostazol 100 Mg Tab PO Not Given BID MARGARET Enoxaparin Sodium 60 mg 10/05/20 22:00 10/12/20 12:00 Enoxaparin 60 Mg/0.6 Ml Inj SUB-Q Not Given Q12HR MARGARET Hydromorphone HCl 0.5 mg 10/11/20 11:28 Hydromorphone 1 Mg/1 Ml Inj IV Q3H PRN Pain , Severe (7-10) Lactated Ringer's 1,000 mls @ 100 mls/hr 10/11/20 10:15 Lactated Ringers IV DIRECT MARGARET Insulin Glargine 20 units 10/08/20 22:00 10/11/20 23:33 Insulin Glargine 100 Units/Ml SUB-Q 20 units QHS MARGARET Administration Insulin Human Lispro 0 unit 10/05/20 07:30 10/12/20 07:30 Insulin Lispro 100 Unit/Ml SUB-Q 2 unit ACHS MARGARET Administration Protocol Insulin Human Lispro 8 unit 10/06/20 07:30 10/12/20 08:09 Insulin Lispro 100 Unit/Ml SUB-Q 8 unit AC [facility] Administration Metoclopramide HCl 10 mg 10/04/20 22:26 Metoclopramide 10 Mg/2 Ml Inj IV Q6H PRN Nausea And Vomiting Morphine Sulfate 2 mg 10/11/20 12:42 10/12/20 12:02 Morphine 2 Mg/1 Ml Inj IV 2 mg Q4H PRN Administration Pain, Moderate (4-6) Nicotine 7 mg 10/05/20 10:00 10/11/20 17:47 Nicotine 7 Mg/24 Hr Patch TD 7 mg QDAY MARGARET Administration Ondansetron HCl 4 mg 10/04/20 22:26 10/12/20 08:17 Ondansetron 4 Mg/2 Ml Inj IV 4 mg Q3H PRN Administration Nausea And Vomiting Oxycodone/Acetaminophen 1 tab 10/04/20 22:25 10/12/20 05:02 Oxycodone /Acetaminophen 5-325mg Tab PO 1 tab Q6H PRN Administration Pain, Moderate (4-6) Pantoprazole Sodium 40 mg 10/05/20 10:00 10/12/20 12:01 Pantoprazole 40 Mg Tab PO 40 mg DAILY MARGARET Administration Sodium Chloride 10 ml 10/04/20 23:00 10/11/20 21:48 Sodium Chloride 0.9% 10 Ml Flush Syringe IV 10 ml BID MARGARET Administration Sodium Chloride 10 ml 10/04/20 22:26 10/12/20 04:13 Sodium Chloride 0.9% 10 Ml Flush Syringe IV 10 ml PRN PRN Administration LINE FLUSH Zolpidem Tartrate 5 mg 10/04/20 22:25 10/10/20 21:50 Zolpidem 5 Mg Tab PO 5 mg QHS PRN Administration Sleep
[2020-10-12] MEDS ORDERED: oxyCODONE /ACETAMINOPHEN 5-325MG TAB PO PRN (12:25)
[2020-10-12 14:11] LABS: Hematocrit 25.6 % (30.3-42.9); Hemoglobin 8.9 gm/dl (10.1-14.3); Mean Corpuscular HGB Conc 35 % (30-34); Mean Corpuscular Volume 85 fl (79-97); Platelet Count 469 K/mm3 (140-440); Red Cell Distribution Width 13.8 % (13.2-15.2)
[2020-10-12 14:24] LABS: INR 1.14 (0.87-1.13)
[2020-10-12 14:25] LABS: Partial Thromboplastin Time 38.3 Sec. (24.2-36.6)
[2020-10-12] MEDS: NICOTINE 7 MG/24 HR PATCH TD SCH (17:26)
[2020-10-12] MEDS: HYDROmorphone 1 MG/1 ML INJ IV PRN ×2 (17:30→23:45)
[2020-10-12] MEDS: APIXABAN 5 MG TAB PO SCH (21:57)
[2020-10-12] MEDS: ZOLPIDEM 5 MG TAB PO PRN (21:57)
[2020-10-12] MEDS: INSULIN GLARGINE 100 UNITS/ML SUB-Q SCH (21:57)
[2020-10-13] MEDS: oxyCODONE /ACETAMINOPHEN 5-325MG TAB PO PRN (01:42)
[2020-10-13] MEDS: INSULIN LISPRO 100 UNIT/ML SUB-Q SCH ×7 (07:48→22:41)
--- NOTE | 2020-10-13 09:20 | Progress Note ---
Assessment and Plan Assessment and plan: 74-year-old female with history of severe peripheral artery disease and uncontrolled diabetes and long-term smoking comes in for gangrenous changes of the right foot for the last 10 days. Patient also has a history of COPD. There are fourth and the fifth digit of the right foot are black and gangrenous. Unable to walk. 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 Patient had extensive interventional vascular surgery on 08/04/2020. Patient was recently admitted in the last admission was reviewed. She had a bulla of her right lower Extremity which has resulted in a chronic wound and has a deep tissue injury at the dorsal for proximal foot at the time of last discharge around 08/04/2020 no patient has gangrenous changes in the right foot especially around the right fourth and fifth toes and is unable to walk. No fever or chills. Last admission reviewed. Last admission was in August 04-. Patient informs me that although started following her knee surgery and unable to continue therapy due to Covid. 10/05/2020 -Patient was seen by respiratory surgeon Dr. Mackay and the plan to do right BKA but patient did not decide, discussed with him and he states okay to hold the El iquis from today. -Patient is on 25 units of 70/30 insulin twice daily but blood sugar is uncontrolled. Accu-Chek, ADA diet, adjust insulin as needed. 10/06/2020 -Patient is on IV vancomycin and Levaquin per ID recommendation. -Vascular surgery discussed with the patient for right BKA, but patient did not consent. She wants to try other interventions before amputation. Vascular surgery is following. -Patient's blood sugar is in target. Continue current medication regimens. 10/07/2020; continue with IV vancomycin and Levaquin per ID recommendation. Was seen by vascular surgery and recommend right BKA for ultimate treatment of her right lower extremity gangrene. -Patient is medically stable continue with current medications and follow vascular surgery recommendation for definitive treatment. 10/08/2020; patient has osteomyelitis and gangrene of the right foot. Patient is on IV vancomycin and Levaquin per ID recommendation. Vascular surgery is following the patient and recommend right BKA. Patient was also seen by wound surgeon Dr. Blackwell and he recommend right foot amputation. Patient had hypoglycemia this morning and was treated according to hypoglycemia protocol. I decreased nightly 70/30 insulin to 20 units. Continue sliding scale insulin. Patient agreed with right BKA. 10/09/2020; osteomyelitis of the right foot. Patient will have right BKA. Follow with vascular surgery. 10/10: Continue aggressive management of insulin. Patient is for right BKA in a.m. Vascular surgery following. Monitor for hypoglycemia. Will discuss with vascular surgery if okay for patient to take oral meds in the morning otherwise they could be changed to IV. Plan discussed with the patient in detail, antibiotics noted. 10/11: Patient for surgery today, Right BKA. PT/OT ordered, ID recommending stopping abx 24 hrs post op. New issues Hyponatremia: Will monitor. 10/12: Patient is postop day 1 right BKA no complications antibiotics completed today ID signed off. Rehab potential being assessed. No new complaints we will continue to monitor hemoglobin remained stable. Patient still with mild hyponatremia we will monitor including elevated blood sugar I will adjust insulin as needed. PT evaluating, adjust pain meds. 10/13: Patient with no new complaints, continues on pain control. Awaiting Prior auth, continue PT/OT. COVID TESTING FOR PLACEMENT PENDING. Started on Eliquis, COUNSELLING on this medication discussed in detail Today is POD#2 Awaiting placement (1) Gangrene Current Visit: Yes Status: Acute Plan to address problem: Patient has severe PAD Now patient has gangrenous changes of the right fourth and fifth toes Also osteomyelitis of first MTP joint area of the right foot and other toes Patient may need TMA Will defer to vascular surgery Patient initiated on IV Levaquin because of penicillin allergy and IV vancomycin ID consult (2) COPD (chronic obstructive pulmonary disease) Current Visit: No Status: Chronic Qualifiers: COPD type: chronic bronchitis Plan to address problem: DuoNebs as needed \Advised to stop smoking (3) Insulin dependent diabetes mellitus Current Visit: Yes Status: Chronic Plan to address problem: Poorly controlled diabetes Insulin dosage adjusted Lantus 30 units subcu at bedtime and Humalog before each meal Check hemoglobin A1c (4) PAD (peripheral artery disease)- S/P lEFT BKA 10/11 Current Visit: Yes Status: Chronic Plan to address problem: Continue cilostazol (5) Nicotine dependence Current Visit: Yes Status: Chronic Qualifiers: Nicotine product type: cigarettes Plan to address problem: Patient states she smokes only 1 cigarette/day now Patient has [id number] history of smoking Patient counseled over stopping smoking NicoDerm patch initiated (6) Anemia Current Visit: Yes Status: Acute Plan to address problem: Anemia work-up (7) Advance care planning Current Visit: No Status: Acute Plan to address problem: Advance care planning discussed Patient is a full code (8) DVT prophylaxis Current Visit: No Status: Acute Plan to address problem: On heparin and GI prophylaxis History Interval history: Patient seen and examined resting comfortably no new complaints, dressing changed Hospitalist Physical - Physical exam Narrative exam: VITAL SIGNS: Reviewed. GENERAL: The patient appears normally developed, Vital signs as documented. HEAD: No signs of head trauma. EYES: Pupils are equal. Extraocular motions intact. EARS: Hearing grossly intact. MOUTH: Oropharynx is normal. NECK: No adenopathy, no JVD. CHEST: Chest with clear breath sounds bilaterally. No wheezes, rales, or rhonchi. CARDIAC: Regular rate and rhythm. S1 and S2, without murmurs, gallops, or rubs. VASCULAR: No Edema. Peripheral pulses normal and equal in all extremities. ABDOMEN: Soft, non tender and non distended. No rebound or guarding, and no masses palpated. Bowel Sounds normal. MUSCULOSKELETAL: Dressing under left stump. s/p left BKA. dressing in place, no gross bleeding noted NEUROLOGIC EXAM: Alert and oriented x 3 No focal sensory or strength deficits. Speech normal. Follows commands. PSYCHIATRIC: Mood normal. SKIN: detail exam as documented in skin assessment - Constitutional Vitals: Temp Pulse Resp BP Pulse Ox 98.9 F 103 H 16 111/48 97 10/13/20 04:17 10/13/20 04:17 10/13/20 04:17 10/13/20 04:17 10/13/20 04:17 General appearance: Present: no acute distress Results - Labs CBC & Chem 7: 10/12/20 13:16 10/12/20 13:16 Labs: Laboratory Last Values WBC 10.8 K/mm3 (4.5-11.0) 10/12/20 13:16 RBC 3.00 M/mm3 (3.65-5.03) L 10/12/20 13:16 Hgb 8.9 gm/dl (10.1-14.3) L 10/12/20 13:16 Hct 25.6 % (30.3-42.9) L 10/12/20 13:16 MCV 85 fl (79-97) 10/12/20 13:16 MCH 30 pg (28-32) 10/12/20 13:16 MCHC 35 % (30-34) H 10/12/20 13:16 RDW 13.8 % (13.2-15.2) 10/12/20 13:16 Plt Count 469 K/mm3 (140-440) H 10/12/20 13:16 Lymph % (Auto) 19.9 % (13.4-35.0) 10/05/20 07:11 [place] % (Auto) 6.8 % (0.0-7.3) 10/05/20 07:11 Eos % (Auto) 5.5 % (0.0-4.3) H 10/05/20 07:11 Baso % (Auto) 1.3 % (0.0-1.8) 10/05/20 07:11 Lymph # (Auto) 1.2 K/mm3 (1.2-5.4) 10/05/20 07:11 [place] # (Auto) 0.4 K/mm3 (0.0-0.8) 10/05/20 07:11 Eos # (Auto) 0.3 K/mm3 (0.0-0.4) 10/05/20 07:11 Baso # (Auto) 0.1 K/mm3 (0.0-0.1) 10/05/20 07:11 Seg Neutrophils % 66.5 % (40.0-70.0) 10/05/20 07:11 Seg Neutrophils # 4.1 K/mm3 (1.8-7.7) 10/05/20 07:11 PT 14.4 Sec. (12.2-14.9) 10/12/20 13:16 INR 1.14 (0.87-1.13) H 10/12/20 13:16 APTT 38.3 Sec. (24.2-36.6) H 10/12/20 13:16 Sodium 130 mmol/L (137-145) L 10/12/20 05:05 Potassium 4.2 mmol/L (3.6-5.0) 10/12/20 05:05 Chloride 93.1 mmol/L (98-107) L 10/12/20 05:05 Carbon Dioxide 26 mmol/L (22-30) 10/12/20 05:05 Anion Gap 15 mmol/L 10/12/20 05:05 BUN 12 mg/dL (7-17) 10/12/20 05:05 Creatinine 1.0 mg/dL (0.6-1.2) 10/12/20 13:16 Estimated GFR 54 ml/min 10/12/20 13:16 BUN/Creatinine Ratio 15 % 10/12/20 05:05 Glucose 201 mg/dL (65-100) H 10/12/20 05:05 POC Glucose 187 mg/dL (70-105) H 10/13/20 07:40 Hemoglobin A1c 9.5 % (4-6) H 10/05/20 07:11 Calcium 8.4 mg/dL (8.4-10.2) 10/12/20 05:05 Total Bilirubin 0.20 mg/dL (0.1-1.2) 10/05/20 07:11 AST 8 units/L (5-40) 10/05/20 07:11 ALT 6 units/L (7-56) L 10/05/20 07:11 Alkaline Phosphatase 131 units/L (35-129) H 10/05/20 07:11 Total Protein 6.5 g/dL (6.3-8.2) 10/05/20 07:11 Albumin 2.8 g/dL (3.9-5) L 10/05/20 07:11 Albumin/Globulin Ratio 0.8 % 10/05/20 07:11 Vancomycin Trough 11.7 ug/mL (5.0-20.0) 10/09/20 05:03 Blood Type A POSITIVE 10/11/20 05:30 Antibody Screen Negative 10/11/20 05:30 Garza/IV: Voiding Method Bedpan Active Medications - Current Medications Current Medications: Generic Name Dose Route Start Last Admin Trade Name Freq PRN Reason Stop Dose Admin Acetaminophen 650 mg 10/04/20 22:26 Acetaminophen 325 Mg Tab PO Q4H PRN Pain MILD(1-3)/Fever >100.5/WRIGHT Albuterol 2.5 mg 10/05/20 17:59 Albuterol 2.5 Mg/3 Ml Nebu IH Q3HRT PRN Wheezing Apixaban 5 mg 10/12/20 22:00 10/12/20 21:57 Apixaban 5 Mg Tab PO 5 mg Q12HR MARGARET Administration Protocol Aspirin 81 mg 10/05/20 10:00 10/12/20 12:00 Aspirin Ec 81 Mg Tab PO Not Given QDAY MARGARET Hydromorphone HCl 1 mg 10/12/20 12:27 10/12/20 23:45 Hydromorphone 1 Mg/1 Ml Inj IV 1 mg Q3H PRN Administration Pain , Severe (7-10) Lactated Ringer's 1,000 mls @ 100 mls/hr 10/11/20 10:15 Lactated Ringers IV DIRECT MARGARET Insulin Glargine 20 units 10/08/20 22:00 10/12/20 21:57 Insulin Glargine 100 Units/Ml SUB-Q 20 units QHS MARGARET Administration Insulin Human Lispro 0 unit 10/05/20 07:30 10/13/20 07:48 Insulin Lispro 100 Unit/Ml SUB-Q 2 unit ACHS MARGARET Administration Protocol Insulin Human Lispro 8 unit 10/06/20 07:30 10/13/20 07:49 Insulin Lispro 100 Unit/Ml SUB-Q 8 unit AC MARGARET Administration Metoclopramide HCl 10 mg 10/04/20 22:26 Metoclopramide 10 Mg/2 Ml Inj IV Q6H PRN Nausea And Vomiting Morphine Sulfate 2 mg 10/11/20 12:42 10/12/20 12:02 Morphine 2 Mg/1 Ml Inj IV 2 mg Q4H PRN Administration Pain, Moderate (4-6) Nicotine 7 mg 10/05/20 10:00 10/12/20 17:26 Nicotine 7 Mg/24 Hr Patch TD 7 mg QDAY MARGARET Administration Ondansetron HCl 4 mg 10/04/20 22:26 10/12/20 08:17 Ondansetron 4 Mg/2 Ml Inj IV 4 mg Q3H PRN Administration Nausea And Vomiting Oxycodone/Acetaminophen 1 tab 10/04/20 22:25 10/13/20 01:42 Oxycodone /Acetaminophen 5-325mg Tab PO 1 tab Q6H PRN Administration Pain, Moderate (4-6) Oxycodone/Acetaminophen 2 tab 10/12/20 12:25 Oxycodone /Acetaminophen 5-325mg Tab PO Q4H PRN Pain , Severe (7-10) Pantoprazole Sodium 40 mg 10/05/20 10:00 10/12/20 12:01 Pantoprazole 40 Mg Tab PO 40 mg DAILY MARGARET Administration Sodium Chloride 10 ml 10/04/20 23:00 10/12/20 21:59 Sodium Chloride 0.9% 10 Ml Flush Syringe IV 10 ml BID MARGARET Administration Sodium Chloride 10 ml 10/04/20 22:26 10/12/20 04:13 Sodium Chloride 0.9% 10 Ml Flush Syringe IV 10 ml PRN PRN Administration LINE FLUSH Zolpidem Tartrate 5 mg 10/04/20 22:25 10/12/20 21:57 Zolpidem 5 Mg Tab PO 5 mg QHS PRN Administration Sleep Nutrition/Malnutrition Assess - Dietary Evaluation Nutrition/Malnutrition Findings: Nutrition Notes Start: 10/11/20 10:20 Freq: Status: Active Protocol: Document 10/11/20 10:20 AL (Rec: 10/11/20 10:31 AL [id number]) Co-Sign 10/11/20 10:20 LP Nutrition Notes Need for Assessment generated from: LOS Initial or Follow up Assessment Current Diagnosis COPD,Diabetes Other Pertinent Diagnosis Right foot gangrene, Right BKA , anemia Current Diet NPO Labs/Tests BUN 18 BG 231 A1C 9.5 Pertinent Medications Humalog Lantus Height 5 ft 6 in Weight 60 kg Moon Body Weight (kg) 59.09 BMI 21.3 Weight Status Appropriate Subjective/Other Information LOS x 7. Pt scheduled for right BKA today and was not in room at the time of visit. Per ADL, pt tolerated 100% of diet yesterday, 10/10. Percent of energy/protein needs met: 0%/0% Burn Absent Trauma Absent Skin Integrity/Comment Necrotic gangrene on right foot. Current % PO Good (75-100%) Minimum of two criteria No physical signs of malnutrition #1 Nutrition Diagnosis Increased nutrient needs ( specify in comment below) Comments: Protein Etiology Poorly controlled DM As Evidenced by Signs and Symptoms Right foot gangrene, right BKA Is patient on ventilator? No Is Patient Ambulatory and/or Out of Bed Yes REE-(Crestline-St. Jeor-ambulatory/OOB) [ [id number] [id number]] Calculation Used for Recommendations [place]-St Jeor Additional Notes Protein: 75-90 g (1.25-1.5 g/ kg) Fluid: 1 ml/kcal Nutrition Intervention Change Diet Order: Advance diet when medically feasible Goal #1 Advance diet to meet nutrient needs Goal #2 Wound healing Anticipated Discharge Needs: Consistent Carbohydrate diet Follow-Up By: 10/13/20 Additional Comments F/U for wound status, diet advancement, & PO tolerance.
[2020-10-13] MEDS: NICOTINE 7 MG/24 HR PATCH TD SCH (10:20)
[2020-10-13] MEDS: PANTOPRAZOLE 40 MG TAB PO SCH (10:21)
[2020-10-13] MEDS: APIXABAN 5 MG TAB PO SCH ×2 (10:21→22:39)
[2020-10-13] MEDS: ASPIRIN EC 81 MG TAB PO SCH (10:21)
--- NOTE | 2020-10-13 12:51 | Progress Note ---
Assessment and Plan Patient postop day 2 status post right BKA. She does have a blister developing on the posterior flap approximately 3 cm in diameter. The margins are clean dry and intact. No visible bleeding. Patient with new mobilizer in place. Await ing placement in PT. Discussed with nurse for patient to have a phone brought to her room. Subjective Date of service: 10/13/20 Principal diagnosis: PVD with gangrene Interval history: Patient with PVD with gangrene to the right foot. Status post BKA. Initially, the patient had what appeared to be blood tracking up the posterior aspect of her leg. Her dressing was changed and no bleeding was identified. Patient is experiencing some pain however this was controlled with oral medication. Objective - Constitutional Vitals: Vital Signs - 12hr 10/13/20 04:17 Temperature 98.9 F Pulse Rate 103 H Respiratory 16 Rate Blood Pressure 111/48 O2 Sat by Pulse 97 Oximetry General appearance: Present: no acute distress - EENT Eyes: EOM intact ENT: hearing intact - Neck Neck: supple - Respiratory Respiratory effort: normal Extremities: abnormal - Gastrointestinal General gastrointestinal: Present: deferred - Genitourinary Female genitourinary: deferred - Psychiatric Psychiatric: cooperative - Labs CBC & Chem 7: 10/12/20 13:16 10/12/20 13:16 Labs: Abnormal lab results 10/12/20 10/12/20 10/12/20 Range/Units 11:15 13:16 13:16 RBC 3.00 L (3.65-5.03) M/mm3 Hgb 8.9 L (10.1-14.3) gm/dl Hct 25.6 L (30.3-42.9) % MCHC 35 H (30-34) % Plt Count 469 H (140-440) K/mm3 INR 1.14 H (0.87-1.13) APTT 38.3 H (24.2-36.6) Sec. POC Glucose 145 H (70-105) mg/dL 10/12/20 10/12/20 10/13/20 Range/Units 16:41 21:31 07:40 RBC (3.65-5.03) M/mm3 Hgb (10.1-14.3) gm/dl Hct (30.3-42.9) % MCHC (30-34) % Plt Count (140-440) K/mm3 INR (0.87-1.13) APTT (24.2-36.6) Sec. POC Glucose 174 H 193 H 187 H (70-105) mg/dL Medications & Allergies - Medications Allergies/Adverse Reactions: Allergies Penicillins Allergy (Verified 10/04/20 10:45) Unknown sutures Adverse Reaction (Uncoded 10/11/20 11:39) Swelling Home Medications: Home Medications Medication Instructions Recorded Confirmed Last Taken Type Lispro Insulin [HumaLOG] See Protocol SQ ACHS 09/13/17 10/11/20 Unknown History Pantoprazole [Protonix TAB] 40 mg PO DAILY #7 tablet 06/11/18 10/11/20 Unknown Rx Zolpidem [Ambien] 5 mg PO QHS PRN #5 tablet 06/11/18 10/11/20 Unknown Rx Pantoprazole [Protonix] 40 mg PO QDAY #90 tablet 08/07/20 10/11/20 10/03/20 10:00 Rx Apixaban [Eliquis] 2.5 mg PO Q12HR #60 tablet 08/09/20 10/11/20 Unknown Rx Aspirin EC [Halfprin EC] 81 mg PO QDAY #30 tablet 08/09/20 10/11/20 Unknown Rx Insulin NPH/Regular [NovoLIN 70/30] 25 unit SUB-Q BID 30 Days units 08/09/20 10/11/20 10/03/20 08:00 Rx cilostazoL [Pletal] 100 mg PO BID #60 tablet 08/09/20 10/11/20 Unknown Rx oxyCODONE /ACETAMINOPHEN [Percocet 1 tab PO Q6H PRN 2 Days #12 tablet 08/09/20 10/11/20 10/03/20 10:00 Rx 5/325 mg] Active Medications: Generic Name Dose Route Start Last Admin Trade Name Freq PRN Reason Stop Dose Admin Acetaminophen 650 mg 10/04/20 22:26 Acetaminophen 325 Mg Tab PO Q4H PRN Pain MILD(1-3)/Fever >100.5/WRIGHT Albuterol 2.5 mg 10/05/20 17:59 Albuterol 2.5 Mg/3 Ml Nebu IH Q3HRT PRN Wheezing Apixaban 5 mg 10/12/20 22:00 10/13/20 10:21 Apixaban 5 Mg Tab PO 5 mg Q12HR MARGARET Administration Protocol Aspirin 81 mg 10/05/20 10:00 10/13/20 10:21 Aspirin Ec 81 Mg Tab PO 81 mg QDAY [facility] Administration Hydromorphone HCl 1 mg 10/12/20 12:27 10/12/20 23:45 Hydromorphone 1 Mg/1 Ml Inj IV 1 mg Q3H PRN Administration Pain , Severe (7-10) Lactated Ringer's 1,000 mls @ 100 mls/hr 10/11/20 10:15 Lactated Ringers IV DIRECT MARGARET Insulin Glargine 20 units 10/08/20 22:00 10/12/20 21:57 Insulin Glargine 100 Units/Ml SUB-Q 20 units QHS [facility] Administration Insulin Human Lispro 0 unit 10/05/20 07:30 10/13/20 07:48 Insulin Lispro 100 Unit/Ml SUB-Q 2 unit ACHS [facility] Administration Protocol Insulin Human Lispro 8 unit 10/06/20 07:30 10/13/20 07:49 Insulin Lispro 100 Unit/Ml SUB-Q 8 unit AC MARGARET Administration Metoclopramide HCl 10 mg 10/04/20 22:26 Metoclopramide 10 Mg/2 Ml Inj IV Q6H PRN Nausea And Vomiting Morphine Sulfate 2 mg 10/11/20 12:42 10/12/20 12:02 Morphine 2 Mg/1 Ml Inj IV 2 mg Q4H PRN Administration Pain, Moderate (4-6) Nicotine 7 mg 10/05/20 10:00 10/13/20 10:20 Nicotine 7 Mg/24 Hr Patch TD 7 mg QDAY [facility] Administration Ondansetron HCl 4 mg 10/04/20 22:26 10/12/20 08:17 Ondansetron 4 Mg/2 Ml Inj IV 4 mg Q3H PRN Administration Nausea And Vomiting Oxycodone/Acetaminophen 1 tab 10/04/20 22:25 10/13/20 01:42 Oxycodone /Acetaminophen 5-325mg Tab PO 1 tab Q6H PRN Administration Pain, Moderate (4-6) Oxycodone/Acetaminophen 2 tab 10/12/20 12:25 Oxycodone /Acetaminophen 5-325mg Tab PO Q4H PRN Pain , Severe (7-10) Pantoprazole Sodium 40 mg 10/05/20 10:00 10/13/20 10:21 Pantoprazole 40 Mg Tab PO 40 mg DAILY MARGARET Administration Sodium Chloride 10 ml 10/04/20 23:00 10/13/20 10:22 Sodium Chloride 0.9% 10 Ml Flush Syringe IV 10 ml BID MARGARET Administration Sodium Chloride 10 ml 10/04/20 22:26 10/12/20 04:13 Sodium Chloride 0.9% 10 Ml Flush Syringe IV 10 ml PRN PRN Administration LINE FLUSH Zolpidem Tartrate 5 mg 10/04/20 22:25 10/12/20 21:57 Zolpidem 5 Mg Tab PO 5 mg QHS PRN Administration Sleep
[2020-10-13] MEDS: HYDROmorphone 1 MG/1 ML INJ IV PRN (13:46)
[2020-10-13] MEDS: INSULIN GLARGINE 100 UNITS/ML SUB-Q SCH (22:40)
[2020-10-14 05:57] LABS: Hematocrit 20.8 % (30.3-42.9); Mean Corpuscular HGB Conc 34 % (30-34); Mean Corpuscular Volume 85 fl (79-97); Platelet Count 478 K/mm3 (140-440); Red Blood Count 2.44 M/mm3 (3.65-5.03); Red Cell Distribution Width 14.1 % (13.2-15.2)
[2020-10-14] MEDS: INSULIN LISPRO 100 UNIT/ML SUB-Q SCH ×7 (09:23→23:12)
--- NOTE | 2020-10-14 10:50 | Progress Note ---
Assessment and Plan Assessment and plan: 74-year-old female with history of severe peripheral artery disease and uncontrolled diabetes and long-term smoking comes in for gangrenous changes of the right foot for the last 10 days. Patient also has a history of COPD. There are fourth and the fifth digit of the right foot are black and gangrenous. Unable to walk. 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 Patient had extensive interventional vascular surgery on 08/04/2020. Patient was recently admitted in the last admission was reviewed. She had a bulla of her right lower Extremity which has resulted in a chronic wound and has a deep tissue injury at the dorsal for proximal foot at the time of last discharge around 08/04/2020 no patient has gangrenous changes in the right foot especially around the right fourth and fifth toes and is unable to walk. No fever or chills. Last admission reviewed. Last admission was in August 04-. Patient informs me that although started following her knee surgery and unable to continue therapy due to Covid. 10/05/2020 -Patient was seen by respiratory surgeon Dr. Mackay and the plan to do right BKA but patient did not decide, discussed with him and he states okay to hold the El iquis from today. -Patient is on 25 units of 70/30 insulin twice daily but blood sugar is uncontrolled. Accu-Chek, ADA diet, adjust insulin as needed. 10/06/2020 -Patient is on IV vancomycin and Levaquin per ID recommendation. -Vascular surgery discussed with the patient for right BKA, but patient did not consent. She wants to try other interventions before amputation. Vascular surgery is following. -Patient's blood sugar is in target. Continue current medication regimens. 10/07/2020; continue with IV vancomycin and Levaquin per ID recommendation. Was seen by vascular surgery and recommend right BKA for ultimate treatment of her right lower extremity gangrene. -Patient is medically stable continue with current medications and follow vascular surgery recommendation for definitive treatment. 10/08/2020; patient has osteomyelitis and gangrene of the right foot. Patient is on IV vancomycin and Levaquin per ID recommendation. Vascular surgery is following the patient and recommend right BKA. Patient was also seen by wound surgeon Dr. Blackwell and he recommend right foot amputation. Patient had hypoglycemia this morning and was treated according to hypoglycemia protocol. I decreased nightly 70/30 insulin to 20 units. Continue sliding scale insulin. Patient agreed with right BKA. 10/09/2020; osteomyelitis of the right foot. Patient will have right BKA. Follow with vascular surgery. 10/10: Continue aggressive management of insulin. Patient is for right BKA in a.m. Vascular surgery following. Monitor for hypoglycemia. Will discuss with vascular surgery if okay for patient to take oral meds in the morning otherwise they could be changed to IV. Plan discussed with the patient in detail, antibiotics noted. 10/11: Patient for surgery today, Right BKA. PT/OT ordered, ID recommending stopping abx 24 hrs post op. New issues Hyponatremia: Will monitor. 10/12: Patient is postop day 1 right BKA no complications antibiotics completed today ID signed off. Rehab potential being assessed. No new complaints we will continue to monitor hemoglobin remained stable. Patient still with mild hyponatremia we will monitor including elevated blood sugar I will adjust insulin as needed. PT evaluating, adjust pain meds. 10/13: Patient with no new complaints, continues on pain control. Awaiting Prior auth, continue PT/OT. COVID TESTING FOR PLACEMENT PENDING. Started on Eliquis, COUNSELLING on this medication discussed in detail Today is POD#2 Awaiting placement 10/14 Anemia- ABLA. Will give a unit of blood. Patient noted to have a blister deve loping on the posterior flap approximately 3 cm in diameter. For also noted at the base of the dressing wound care has been consulted margins are clean and dry and intact. Continue PT continue awaiting placement discussed with case management. Constipation will start patient on Colace twice daily. (1) Gangrene Current Visit: Yes Status: Acute Plan to address problem: Patient has severe PAD Now patient has gangrenous changes of the right fourth and fifth toes Also osteomyelitis of first MTP joint area of the right foot and other toes Patient may need TMA Will defer to vascular surgery Patient initiated on IV Levaquin because of penicillin allergy and IV vancomycin ID consult (2) COPD (chronic obstructive pulmonary disease) Current Visit: No Status: Chronic Qualifiers: COPD type: chronic bronchitis Plan to address problem: DuoNebs as needed \Advised to stop smoking (3) Insulin dependent diabetes mellitus Current Visit: Yes Status: Chronic Plan to address problem: Poorly controlled diabetes Insulin dosage adjusted Lantus 30 units subcu at bedtime and Humalog before each meal Check hemoglobin A1c (4) PAD (peripheral artery disease)- S/P lEFT BKA 10/11 Current Visit: Yes Status: Chronic Plan to address problem: Continue cilostazol (5) Nicotine dependence Current Visit: Yes Status: Chronic Qualifiers: Nicotine product type: cigarettes Plan to address problem: Patient states she smokes only 1 cigarette/day now Patient has [id number] history of smoking Patient counseled over stopping smoking NicoDerm patch initiated (6) Anemia Current Visit: Yes Status: Acute Plan to address problem: Anemia work-up (7) Advance care planning Current Visit: No Status: Acute Plan to address problem: Advance care planning discussed Patient is a full code (8) DVT prophylaxis Current Visit: No Status: Acute Plan to address problem: On heparin and GI prophylaxis History Interval history: Patient seen and examined resting comfortably no new complaints, complains of constipation Hospitalist Physical - Physical exam Narrative exam: VITAL SIGNS: Reviewed. GENERAL: The patient appears normally developed, Vital signs as documented. HEAD: No signs of head trauma. EYES: Pupils are equal. Extraocular motions intact. EARS: Hearing grossly intact. MOUTH: Oropharynx is normal. NECK: No adenopathy, no JVD. CHEST: Chest with clear breath sounds bilaterally. No wheezes, rales, or rhonchi. CARDIAC: Regular rate and rhythm. S1 and S2, without murmurs, gallops, or rubs. VASCULAR: No Edema. Peripheral pulses normal and equal in all extremities. ABDOMEN: Soft, non tender and non distended. No rebound or guarding, and no masses palpated. Bowel Sounds normal. MUSCULOSKELETAL: Dressing under left stump. s/p left BKA. dressing in place,no foot ulcer. no gross bleeding noted NEUROLOGIC EXAM: Alert and oriented x 3 No focal sensory or strength deficits. Speech normal. Follows commands. PSYCHIATRIC: Mood normal. SKIN: detail exam as documented in skin assessment - Constitutional Vitals: Temp Pulse Resp BP Pulse Ox 97.9 F 92 H 16 106/50 97 10/14/20 05:24 10/14/20 05:24 10/14/20 05:24 10/14/20 05:24 10/14/20 05:24 General appearance: Present: no acute distress Results - Labs CBC & Chem 7: 10/14/20 05:15 10/12/20 13:16 Labs: Laboratory Last Values WBC 10.9 K/mm3 (4.5-11.0) 10/14/20 05:15 RBC 2.44 M/mm3 (3.65-5.03) L 10/14/20 05:15 Hgb 7.0 gm/dl (10.1-14.3) L 10/14/20 05:15 Hct 20.8 % (30.3-42.9) L 10/14/20 05:15 MCV 85 fl (79-97) 10/14/20 05:15 MCH 29 pg (28-32) 10/14/20 05:15 MCHC 34 % (30-34) 10/14/20 05:15 RDW 14.1 % (13.2-15.2) 10/14/20 05:15 Plt Count 478 K/mm3 (140-440) H 10/14/20 05:15 Lymph % (Auto) 19.9 % (13.4-35.0) 10/05/20 07:11 Hinds % (Auto) 6.8 % (0.0-7.3) 10/05/20 07:11 Eos % (Auto) 5.5 % (0.0-4.3) H 10/05/20 07:11 Baso % (Auto) 1.3 % (0.0-1.8) 10/05/20 07:11 Lymph # (Auto) 1.2 K/mm3 (1.2-5.4) 10/05/20 07:11 Hinds # (Auto) 0.4 K/mm3 (0.0-0.8) 10/05/20 07:11 Eos # (Auto) 0.3 K/mm3 (0.0-0.4) 10/05/20 07:11 Baso # (Auto) 0.1 K/mm3 (0.0-0.1) 10/05/20 07:11 Seg Neutrophils % 66.5 % (40.0-70.0) 10/05/20 07:11 Seg Neutrophils # 4.1 K/mm3 (1.8-7.7) 10/05/20 07:11 PT 14.4 Sec. (12.2-14.9) 10/12/20 13:16 INR 1.14 (0.87-1.13) H 10/12/20 13:16 APTT 38.3 Sec. (24.2-36.6) H 10/12/20 13:16 Sodium 130 mmol/L (137-145) L 10/12/20 05:05 Potassium 4.2 mmol/L (3.6-5.0) 10/12/20 05:05 Chloride 93.1 mmol/L (98-107) L 10/12/20 05:05 Carbon Dioxide 26 mmol/L (22-30) 10/12/20 05:05 Anion Gap 15 mmol/L 10/12/20 05:05 BUN 12 mg/dL (7-17) 10/12/20 05:05 Creatinine 1.0 mg/dL (0.6-1.2) 10/12/20 13:16 Estimated GFR 54 ml/min 10/12/20 13:16 BUN/Creatinine Ratio 15 % 10/12/20 05:05 Glucose 201 mg/dL (65-100) H 10/12/20 05:05 POC Glucose 166 mg/dL (70-105) H 10/14/20 07:51 Hemoglobin A1c 9.5 % (4-6) H 10/05/20 07:11 Calcium 8.4 mg/dL (8.4-10.2) 10/12/20 05:05 Total Bilirubin 0.20 mg/dL (0.1-1.2) 10/05/20 07:11 AST 8 units/L (5-40) 10/05/20 07:11 ALT 6 units/L (7-56) L 10/05/20 07:11 Alkaline Phosphatase 131 units/L (35-129) H 10/05/20 07:11 Total Protein 6.5 g/dL (6.3-8.2) 10/05/20 07:11 Albumin 2.8 g/dL (3.9-5) L 10/05/20 07:11 Albumin/Globulin Ratio 0.8 % 10/05/20 07:11 Vancomycin Trough 11.7 ug/mL (5.0-20.0) 10/09/20 05:03 Coronavirus (PCR) Negative (Negative) 10/13/20 Unknown Blood Type A POSITIVE 10/11/20 05:30 Antibody Screen Negative 10/11/20 05:30 Garza/IV: Voiding Method Bedside Commode Active Medications - Current Medications Current Medications: Generic Name Dose Route Start Last Admin Trade Name Freq PRN Reason Stop Dose Admin Acetaminophen 650 mg 10/04/20 22:26 Acetaminophen 325 Mg Tab PO Q4H PRN Pain MILD(1-3)/Fever >100.5/WRIGHT Albuterol 2.5 mg 10/05/20 17:59 Albuterol 2.5 Mg/3 Ml Nebu IH Q3HRT PRN Wheezing Apixaban 5 mg 10/12/20 22:00 10/13/20 22:39 Apixaban 5 Mg Tab PO 5 mg Q12HR MARGARET Administration Protocol Aspirin 81 mg 10/05/20 10:00 10/13/20 10:21 Aspirin Ec 81 Mg Tab PO 81 mg QDAY MARGARET Administration Hydromorphone HCl 1 mg 10/12/20 12:27 10/13/20 13:46 Hydromorphone 1 Mg/1 Ml Inj IV 1 mg Q3H PRN Administration Pain , Severe (7-10) Lactated Ringer's 1,000 mls @ 100 mls/hr 10/11/20 10:15 Lactated Ringers IV DIRECT MARGARET Sodium Chloride 500 mls @ 0 mls/hr 10/14/20 11:00 Nacl 0.9% 500 Ml IV 10/14/20 11:01 ONCE ONE As Directed Insulin Glargine 20 units 10/08/20 22:00 10/13/20 22:40 Insulin Glargine 100 Units/Ml SUB-Q 20 units QHS MARGARET Administration Insulin Human Lispro 0 unit 10/05/20 07:30 10/14/20 09:23 Insulin Lispro 100 Unit/Ml SUB-Q 2 unit ACHS MARGARET Administration Protocol Insulin Human Lispro 8 unit 10/06/20 07:30 10/14/20 09:23 Insulin Lispro 100 Unit/Ml SUB-Q 8 unit AC MARGARET Administration Metoclopramide HCl 10 mg 10/04/20 22:26 Metoclopramide 10 Mg/2 Ml Inj IV Q6H PRN Nausea And Vomiting Morphine Sulfate 2 mg 10/11/20 12:42 10/12/20 12:02 Morphine 2 Mg/1 Ml Inj IV 2 mg Q4H PRN Administration Pain, Moderate (4-6) Nicotine 7 mg 10/05/20 10:00 10/13/20 10:20 Nicotine 7 Mg/24 Hr Patch TD 7 mg QDAY MARGARET Administration Ondansetron HCl 4 mg 10/04/20 22:26 10/12/20 08:17 Ondansetron 4 Mg/2 Ml Inj IV 4 mg Q3H PRN Administration Nausea And Vomiting Oxycodone/Acetaminophen 1 tab 10/04/20 22:25 10/13/20 01:42 Oxycodone /Acetaminophen 5-325mg Tab PO 1 tab Q6H PRN Administration Pain, Moderate (4-6) Oxycodone/Acetaminophen 2 tab 10/12/20 12:25 10/13/20 20:29 Oxycodone /Acetaminophen 5-325mg Tab PO 2 tab Q4H PRN Administration Pain , Severe (7-10) Pantoprazole Sodium 40 mg 10/05/20 10:00 10/13/20 10:21 Pantoprazole 40 Mg Tab PO 40 mg DAILY MARGARET Administration Sodium Chloride 10 ml 10/04/20 23:00 10/13/20 22:43 Sodium Chloride 0.9% 10 Ml Flush Syringe IV 10 ml BID MARGARET Administration Sodium Chloride 10 ml 10/04/20 22:26 10/12/20 04:13 Sodium Chloride 0.9% 10 Ml Flush Syringe IV 10 ml PRN PRN Administration LINE FLUSH Zolpidem Tartrate 5 mg 10/04/20 22:25 10/12/20 21:57 Zolpidem 5 Mg Tab PO 5 mg QHS PRN Administration Sleep Nutrition/Malnutrition Assess - Dietary Evaluation Nutrition/Malnutrition Findings: Nutrition Notes Start: 10/11/20 10:20 Freq: Status: Active Protocol: Document 10/13/20 12:03 KOURTNEY (Rec: 10/13/20 12:10 [facility] [id number]) Nutrition Notes Initial or Follow up Reassessment Current Diagnosis COPD,Diabetes Other Pertinent Diagnosis Osteomyelitis/gangrene of (R) foot s/p (R) BKA Current Diet Cardiac/Consistent CHO Labs/Tests Reviewed Pertinent Medications Reviewed Height 5 ft 6 in Weight 61 kg Alba Body Weight (kg) 59.09 BMI 21.7 Weight change and time frame AdjBW sec to BKA: 64.8kg Adj BMI: 23 Weight Status Appropriate Subjective/Other Information Pt reports pain not well- controlled at this time. She has consumed 63% of meals since last assessment. She may be transferred to in- patient rehab, pending insurance approval. Percent of energy/protein needs met: 91% energy 71% pro Burn Absent Trauma Absent Current % PO Fair (50-74%) #1 Nutrition Diagnosis Increased nutrient needs ( specify in comment below) Diagnosis Progress(for reassessment Continues documentation) Is patient on ventilator? No Is Patient Ambulatory and/or Out of Bed No REE-([facility]-confined to bed) 1364.376 Calculation Used for Recommendations [facility] Additional Notes Pro needs 1.25-1.5g/k-92g /day Fluid needs 1ml/kcal Nutrition Intervention Change Diet Order: Continue current diet order Goal #1 PO intakes to meet at least 75 % energy and pro needs Goal #2 Wound healing Follow-Up By: 10/18/20 Additional Comments F/U: intakes, need for ONS, pain control
[2020-10-14] MEDS ORDERED: SODIUM CHLORIDE 0.9% 500 ML 500 ML IV ONE (11:00)
[2020-10-14] MEDS: oxyCODONE /ACETAMINOPHEN 5-325MG TAB PO PRN ×2 (11:21→22:36)
[2020-10-14] MEDS: ASPIRIN EC 81 MG TAB PO SCH (11:21)
[2020-10-14] MEDS: APIXABAN 5 MG TAB PO SCH ×2 (11:21→21:10)
[2020-10-14] MEDS: NICOTINE 7 MG/24 HR PATCH TD SCH (11:22)
[2020-10-14] MEDS: PANTOPRAZOLE 40 MG TAB PO SCH (11:22)
[2020-10-14] MEDS: DOCUSATE SODIUM 100 MG CAP PO SCH ×2 (12:21→21:10)
[2020-10-14] MEDS: ZOLPIDEM 5 MG TAB PO PRN (21:09)
[2020-10-14] MEDS: INSULIN GLARGINE 100 UNITS/ML SUB-Q SCH (23:13)
[2020-10-15] MEDS: INSULIN LISPRO 100 UNIT/ML SUB-Q SCH ×7 (08:17→22:11)
--- NOTE | 2020-10-15 09:31 | Progress Note ---
Assessment and Plan Awaiting placement. Continue medical management. Subjective Date of service: 10/15/20 Principal diagnosis: PVD with gangrene Interval history: Patient doing well status post amputation. Her pain is well controlled with p.o. medication. Awaiting placement Objective - Constitutional Vitals: Vital Signs - 12hr 10/14/20 10/15/20 21:42 04:13 Temperature 98.1 F 98.1 F Pulse Rate 98 H 92 H Respiratory 16 16 Rate Blood Pressure 142/61 125/51 O2 Sat by Pulse 99 96 Oximetry General appearance: Present: no acute distress - EENT Eyes: EOM intact ENT: hearing intact - Neck Neck: normal ROM - Respiratory Respiratory effort: normal - Breasts Breasts: deferred Extremities: abnormal (Postop BKA) - Gastrointestinal General gastrointestinal: Present: deferred - Genitourinary Female genitourinary: deferred - Psychiatric Psychiatric: appropriate mood/affect, cooperative - Labs CBC & Chem 7: 10/14/20 05:15 10/15/20 04:47 Labs: Abnormal lab results 10/14/20 10/14/20 10/14/20 Range/Units 11:37 12:00 13:52 POC Glucose 154 H 56 L (70-105) mg/dL Crossmatch See Detail 10/14/20 10/14/20 Range/Units 17:45 21:43 POC Glucose 136 H 243 H (70-105) mg/dL Crossmatch Medications & Allergies - Medications Allergies/Adverse Reactions: Allergies Penicillins Allergy (Verified 10/04/20 10:45) Unknown sutures Adverse Reaction (Uncoded 10/11/20 11:39) Swelling Home Medications: Home Medications Medication Instructions Recorded Confirmed Last Taken Type Lispro Insulin [HumaLOG] See Protocol SQ ACHS 09/13/17 10/11/20 Unknown History Pantoprazole [Protonix TAB] 40 mg PO DAILY #7 tablet 06/11/18 10/11/20 Unknown Rx Zolpidem [Ambien] 5 mg PO QHS PRN #5 tablet 06/11/18 10/11/20 Unknown Rx Pantoprazole [Protonix] 40 mg PO QDAY #90 tablet 08/07/20 10/11/20 10/03/20 10:00 Rx Apixaban [Eliquis] 2.5 mg PO Q12HR #60 tablet 08/09/20 10/11/20 Unknown Rx Aspirin EC [Halfprin EC] 81 mg PO QDAY #30 tablet 08/09/20 10/11/20 Unknown Rx Insulin NPH/Regular [NovoLIN 70/30] 25 unit SUB-Q BID 30 Days units 08/09/20 10/11/20 10/03/20 08:00 Rx cilostazoL [Pletal] 100 mg PO BID #60 tablet 08/09/20 10/11/20 Unknown Rx oxyCODONE /ACETAMINOPHEN [Percocet 1 tab PO Q6H PRN 2 Days #12 tablet 08/09/20 10/11/20 10/03/20 10:00 Rx 5/325 mg] Active Medications: Generic Name Dose Route Start Last Admin Trade Name Freq PRN Reason Stop Dose Admin Acetaminophen 650 mg 10/04/20 22:26 Acetaminophen 325 Mg Tab PO Q4H PRN Pain MILD(1-3)/Fever >100.5/WRIGHT Albuterol 2.5 mg 10/05/20 17:59 Albuterol 2.5 Mg/3 Ml Nebu IH Q3HRT PRN Wheezing Apixaban 5 mg 10/12/20 22:00 10/14/20 21:10 Apixaban 5 Mg Tab PO 5 mg Q12HR MARGARET Administration Protocol Aspirin 81 mg 10/05/20 10:00 10/14/20 11:21 Aspirin Ec 81 Mg Tab PO 81 mg QDAY MARGARET Administration Docusate Sodium 100 mg 10/14/20 12:00 10/14/20 21:10 Docusate Sodium 100 Mg Cap PO 100 mg BID MARGARET Administration Hydromorphone HCl 1 mg 10/12/20 12:27 10/13/20 13:46 Hydromorphone 1 Mg/1 Ml Inj IV 1 mg Q3H PRN Administration Pain , Severe (7-10) Lactated Ringer's 1,000 mls @ 100 mls/hr 10/11/20 10:15 Lactated Ringers IV DIRECT [facility] Insulin Glargine 20 units 10/08/20 22:00 10/14/20 23:13 Insulin Glargine 100 Units/Ml SUB-Q 20 units QHS MARGARET Administration Insulin Human Lispro 0 unit 10/05/20 07:30 10/15/20 08:17 Insulin Lispro 100 Unit/Ml SUB-Q Not Given [facility] Protocol Insulin Human Lispro 8 unit 10/06/20 07:30 10/15/20 08:17 Insulin Lispro 100 Unit/Ml SUB-Q Not Given AC [facility] Metoclopramide HCl 10 mg 10/04/20 22:26 Metoclopramide 10 Mg/2 Ml Inj IV Q6H PRN Nausea And Vomiting Morphine Sulfate 2 mg 10/11/20 12:42 10/12/20 12:02 Morphine 2 Mg/1 Ml Inj IV 2 mg Q4H PRN Administration Pain, Moderate (4-6) Nicotine 7 mg 10/05/20 10:00 10/14/20 11:22 Nicotine 7 Mg/24 Hr Patch TD Not Given QDAY [facility] Ondansetron HCl 4 mg 10/04/20 22:26 10/12/20 08:17 Ondansetron 4 Mg/2 Ml Inj IV 4 mg Q3H PRN Administration Nausea And Vomiting Oxycodone/Acetaminophen 1 tab 10/04/20 22:25 10/14/20 22:36 Oxycodone /Acetaminophen 5-325mg Tab PO 1 tab Q6H PRN Administration Pain, Moderate (4-6) Oxycodone/Acetaminophen 2 tab 10/12/20 12:25 10/13/20 20:29 Oxycodone /Acetaminophen 5-325mg Tab PO 2 tab Q4H PRN Administration Pain , Severe (7-10) Pantoprazole Sodium 40 mg 10/05/20 10:00 10/14/20 11:22 Pantoprazole 40 Mg Tab PO 40 mg DAILY MARGARET Administration Sodium Chloride 10 ml 10/04/20 23:00 10/14/20 21:10 Sodium Chloride 0.9% 10 Ml Flush Syringe IV 10 ml BID MARGARET Administration Sodium Chloride 10 ml 10/04/20 22:26 10/12/20 04:13 Sodium Chloride 0.9% 10 Ml Flush Syringe IV 10 ml PRN PRN Administration LINE FLUSH Zolpidem Tartrate 5 mg 10/04/20 22:25 10/14/20 21:09 Zolpidem 5 Mg Tab PO 5 mg QHS PRN Administration Sleep
[2020-10-15] MEDS: PANTOPRAZOLE 40 MG TAB PO SCH (09:49)
[2020-10-15] MEDS: NICOTINE 7 MG/24 HR PATCH TD SCH (09:49)
[2020-10-15] MEDS: APIXABAN 5 MG TAB PO SCH ×2 (09:49→21:51)
[2020-10-15] MEDS: DOCUSATE SODIUM 100 MG CAP PO SCH (09:49)
[2020-10-15] MEDS: ASPIRIN EC 81 MG TAB PO SCH (09:49)
[2020-10-15] MEDS: oxyCODONE /ACETAMINOPHEN 5-325MG TAB PO PRN ×2 (09:57→21:51)
--- NOTE | 2020-10-15 10:05 | Discharge Summary ---
Providers - Providers Date of Admission: 10/04/20 13:01 Attending physician: MARK MUÑOZ MD 10/04/20 16:06 Consult to Wound/ET Nurse [CONS] Urgent Reason For Exam: wound eval 10/04/20 22:26 Consult to Physician [CONS] Routine Comment: Consulting Provider: ALVIN ÁLVAREZ Physician Instructions: Reason For Exam: Right foot gangrene 10/05/20 06:50 Consult to Physician [CONS] Routine Comment: Consulting Provider: MARCUS MCNULTY Physician Instructions: Reason For Exam: Gangrene right foot and osteomyelitis 10/07/20 13:00 Consult to Physician [CONS] Routine Comment: Consulting Provider: GARY BLACKWELL Physician Instructions: Reason For Exam: foot/leg gangrene 10/11/20 Consult to Case Management [CONS] Routine Services Needed at Discharge: Physical Therapy Occupational Therapy Other Notified:: cm Occupational Therapy Evaluate and Treat [CONS] Routine Comment: Reason For Exam: s/p amputation Physical Therapy Evaluation and Treat [CONS] Routine Comment: Reason For Exam: s/p amputation 10/11/20 09:11 Physical Therapy Evaluation and Treat [CONS] Stat Comment: post Rt BKA Reason For Exam: Eval and treat 10/11/20 11:28 Consult to Director Of Outreach [CONS] Routine 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 Patient also has a history of COPD. There are fourth and the fifth digit of the right foot are black and gangrenous. Unable to walk. 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 Patient had extensive interventional vascular surgery on 08/04/2020. Patient was recently admitted in the last admission was reviewed. She had a bulla of her right lower Extremity which has resulted in a chronic wound and has a deep tissue injury at the dorsal for proximal foot at the time of last discharge around 08/04/2020 no patient has gangrenous changes in the right foot especially around the right fourth and fifth toes and is unable to walk. No fever or chills. Last admission reviewed. Last admission was in August 04. Patient informs me that although started following her knee surgery and unable to continue therapy due to Covid. 10/05/2020 -Patient was seen by respiratory surgeon Dr. Álvarez and the plan to do right BKA but patient did not decide, discussed with him and he states okay to hold the Eliquis from today. -Patient is on 25 units of 70/30 insulin twice daily but blood sugar is uncontrolled. Accu-Chek, ADA diet, adjust insulin as needed. 10/06/2020 -Patient is on IV vancomycin and Levaquin per ID recommendation. -Vascular surgery discussed with the patient for right BKA, but patient did not consent. She wants to try other interventions before amputation. Vascular surgery is following. -Patient's blood sugar is in target. Continue current medication regimens. 10/07/2020; continue with IV vancomycin and Levaquin per ID recommendation. Was seen by vascular surgery and recommend right BKA for ultimate treatment of her right lower extremity gangrene. -Patient is medically stable continue with current medications and follow vascular surgery recommendation for definitive treatment. 10/08/2020; patient has osteomyelitis and gangrene of the right foot. Patient is on IV vancomycin and Levaquin per ID recommendation. Vascular surgery is following the patient and recommend right BKA. Patient was also seen by wound surgeon Dr. Blackwell and he recommend right foot amputation. Patient had hypoglycemia this morning and was treated according to hypoglycemia protocol. I decreased nightly 70/30 insulin to 20 units. Continue sliding scale insulin. Patient agreed with right BKA. 10/09/2020; osteomyelitis of the right foot. Patient will have right BKA. Follow with vascular surgery. 10/10: Continue aggressive management of insulin. Patient is for right BKA in a.m. Vascular surgery following. Monitor for hypoglycemia. Will discuss with vascular surgery if okay for patient to take oral meds in the morning otherwise they could be changed to IV. Plan discussed with the patient in detail, antibiotics noted. 10/11: Patient for surgery today, Right BKA. PT/OT ordered, ID recommending stopping abx 24 hrs post op. New issues Hyponatremia: Will monitor. 10/12: Patient is postop day 1 right BKA no complications antibiotics completed today ID signed off. Rehab potential being assessed. No new complaints we will continue to monitor hemoglobin remained stable. Patient still with mild hyponatremia we will monitor including elevated blood sugar I will adjust insulin as needed. PT evaluating, adjust pain meds. 10/13: Patient with no new complaints, continues on pain control. Awaiting Prior auth, continue PT/OT. COVID TESTING FOR PLACEMENT PENDING. Started on Eliquis, COUNSELLING on this medication discussed in detail Today is POD#2 Awaiting placement 10/14 Anemia- ABLA. Will give a unit of blood. Patient noted to have a blister developing on the posterior flap approximately 3 cm in diameter. For also noted at the base of the dressing wound care has been consulted margins are clean and dry and intact. Continue PT continue awaiting placement discussed with case management. Constipation will start patient on Colace twice daily. 10/15: Noted diarrhea today Colace discontinued. Patient approved for inpatient rehab no acute distress discussed with vascular physician patient can proceed with discharge (1) Gangrene Current Visit: Yes Status: Acute Plan to address problem: Patient has severe PAD Now patient has gangrenous changes of the right fourth and fifth toes Also osteomyelitis of first MTP joint area of the right foot and other toes Patient may need TMA Will defer to vascular surgery Patient initiated on IV Levaquin because of penicillin allergy and IV vancomycin ID consult (2) COPD (chronic obstructive pulmonary disease) Current Visit: No Status: Chronic Qualifiers: COPD type: chronic bronchitis Plan to address problem: DuoNebs as needed \Advised to stop smoking (3) Insulin dependent diabetes mellitus Current Visit: Yes Status: Chronic Plan to address problem: Poorly controlled diabetes Insulin dosage adjusted Lantus 30 units subcu at bedtime and Humalog before each meal Check hemoglobin A1c (4) PAD (peripheral artery disease)- S/P lEFT BKA 10/11 Current Visit: Yes Status: Chronic Plan to address problem: Continue cilostazol (5) Nicotine dependence Current Visit: Yes Status: Chronic Qualifiers: Nicotine product type: cigarettes Plan to address problem: Patient states she smokes only 1 cigarette/day now Patient has [id number] history of smoking Patient counseled over stopping smoking NicoDerm patch initiated (6) Anemia Current Visit: Yes Status: Acute Plan to address problem: Anemia work-up (7) Advance care planning Current Visit: No Status: Acute Plan to address problem: Advance care planning discussed Patient is a full code Disposition: DC-01 TO HOME OR SELFCARE Final Discharge Diagnosis (Prints w/discharge instructions): Right lower extremity gangrene status post Right BKA Time spent for discharge: 35-minute Core Measure Documentation - Palliative Care Palliative Care/ Comfort Measures: Not Applicable - Core Measures Any of the following diagnoses?: none Exam - Physical Exam Narrative exam: VITAL SIGNS: Reviewed. GENERAL: The patient appears normally developed, Vital signs as documented. HEAD: No signs of head trauma. EYES: Pupils are equal. Extraocular motions intact. EARS: Hearing grossly intact. MOUTH: Oropharynx is normal. NECK: No adenopathy, no JVD. CHEST: Chest with clear breath sounds bilaterally. No wheezes, rales, or rhonchi. CARDIAC: Regular rate and rhythm. S1 and S2, without murmurs, gallops, or rubs. VASCULAR: No Edema. Peripheral pulses normal and equal in all extremities. ABDOMEN: Soft, non tender and non distended. No rebound or guarding, and no masses palpated. Bowel Sounds normal. MUSCULOSKELETAL: Dressing under right stump. s/p right BKA. dressing in place,no foot ulcer. no gross bleeding noted NEUROLOGIC EXAM: Alert and oriented x 3 No focal sensory or strength deficits. Speech normal. Follows commands. PSYCHIATRIC: Mood normal. SKIN: detail exam as documented in skin assessment - Constitutional Vitals: Temp Pulse Resp BP Pulse Ox 98.1 F 92 H 16 125/51 96 10/15/20 04:13 10/15/20 04:13 10/15/20 04:13 10/15/20 04:13 10/15/20 04:13 Plan Activity: advance as tolerated, fall precautions, avoid flexion Diet: diabetic Special Instructions: record daily weights, record daily BP diary, record blood sugar diary Follow up with: ALVIN ALARCON MD [Primary Care Provider] - 7 Days REA JOSE III, MD [Staff Physician] - 7 Days PAUL ROJO MD [Staff Physician] - 7 Days Prescriptions: Apixaban [Eliquis] 5 mg PO Q12HR #60 tablet
[2020-10-15] MEDS: ZOLPIDEM 5 MG TAB PO PRN (21:51)
[2020-10-15] MEDS: INSULIN GLARGINE 100 UNITS/ML SUB-Q SCH (22:10)
[2020-10-16] MEDS ORDERED: POLYETHYLENE GLYCOL 3350 17 GM POWDER PO PRN (04:22)
[2020-10-16 04:50] LABS: Hematocrit 25.8 % (30.3-42.9); Hemoglobin 8.9 gm/dl (10.1-14.3); Mean Corpuscular HGB Conc 35 % (30-34); Mean Corpuscular Volume 87 fl (79-97); Platelet Count 621 K/mm3 (140-440); Red Blood Count 2.97 M/mm3 (3.65-5.03); Red Cell Distribution Width 13.9 % (13.2-15.2)
[2020-10-16 05:43] VITALS: BP 124/54
[2020-10-16] MEDS: oxyCODONE /ACETAMINOPHEN 5-325MG TAB PO PRN (08:05)
[2020-10-16] MEDS: INSULIN LISPRO 100 UNIT/ML SUB-Q SCH ×2 (08:07)
[2020-10-16] MEDS ORDERED: DOCUSATE SODIUM 100 MG CAP PO SCH (10:00)
--- NOTE | 2020-10-16 10:23 | Event Note ---
Date: 10/16/20 Patient is seen again this morning as the patient was discharged yesterday and left early this morning.
== END 2020-10-16 08:09 | DRG 240 ==
LOC: ED 10:16 → 3A 13:01
PROVIDERS: ADMIT Internal Medicine; ATTEND Internal Medicine
PROC: 047M3Z1 Dilation of Right Popliteal Artery using Drug-Coated Balloon, Percutaneous Approach (ICD-10-PCS; 2020-10-04)
PROC: 047K3Z1 Dilation of Right Femoral Artery using Drug-Coated Balloon, Percutaneous Approach (ICD-10-PCS; 2020-10-04)
PROC: 047T3Z1 Dilation of Right Peroneal Artery using Drug-Coated Balloon, Percutaneous Approach (ICD-10-PCS; 2020-10-04)
PROC: B41D1ZZ Fluoroscopy of Aorta and Bilateral Lower Extremity Arteries using Low Osmolar Contrast (ICD-10-PCS; 2020-10-04)
PROC: 0Y6F0ZZ Detachment at Right Knee Region, Open Approach (ICD-10-PCS; principal; 2020-10-11)
DX: E11.52 Type 2 diabetes mellitus with diabetic peripheral angiopathy with gangrene (principal); I96 Gangrene, not elsewhere classified; M86.9 Osteomyelitis, unspecified; I77.9 Disorder of arteries and arterioles, unspecified; Z20.822 Contact with and (suspected) exposure to COVID-19; J44.9 Chronic obstructive pulmonary disease, unspecified; D64.9 Anemia, unspecified; Z96.651 Presence of right artificial knee joint; E11.69 Type 2 diabetes mellitus with other specified complication; E78.5 Hyperlipidemia, unspecified; F17.210 Nicotine dependence, cigarettes, uncomplicated; I10 Essential (primary) hypertension; I50.9 Heart failure, unspecified; Z79.899 Other long term (current) drug therapy; Z79.891 Long term (current) use of opiate analgesic; Z79.01 Long term (current) use of anticoagulants; Z88.0 Allergy status to penicillin; Z79.82 Long term (current) use of aspirin; Z89.411 Acquired absence of right great toe; Z90.49 Acquired absence of other specified parts of digestive tract
CPT/HCPCS: 36415; 80048; 80053; 80202; 82565; 82962; 83036; 85014; 85018; 85025; 85027; 85610; 85730; 86850; 86900; 86901; 86920; 87040; 87116; 88307; 88311; 94640; 96365; 96375; G0378; J1170; J1650; J1815; J1885; J1956; J2270; J2405; J2704; J2765; J3010; J3370; J7040; J7050; P9016; U0003

== ENCOUNTER 2020-10-16 08:24 | Inpatient (IN) | payer MEDICARE ==
[2020-10-16] MEDS ORDERED: DEXTROSE 50% IN WATER (25GM) 50 ML SYRINGE IV PRN (12:33)
[2020-10-16] MEDS ORDERED: ONDANSETRON 4 MG ODT TAB PO PRN (12:40)
[2020-10-16] MEDS ORDERED: POLYETHYLENE GLYCOL 3350 17 GM POWDER PO PRN (12:40)
[2020-10-16] MEDS ORDERED: hydrALAZINE 20 MG/1 ML INJ IV PRN (12:40)
[2020-10-16] MEDS ORDERED: ALBUTEROL 2.5 MG/3 ML NEBU IH PRN (12:40)
[2020-10-16] MEDS ORDERED: ACETAMINOPHEN 325 MG TAB PO PRN (12:40)
[2020-10-16 14:01] LABS: Hematocrit 26.5 % (30.3-42.9); Hemoglobin 9.2 gm/dl (10.1-14.3); Mean Corpuscular HGB Conc 35 % (30-34); Mean Corpuscular Volume 87 fl (79-97); Platelet Count 639 K/mm3 (140-440); Red Blood Count 3.06 M/mm3 (3.65-5.03)
[2020-10-16 14:12] LABS: INR 1.16 (0.87-1.13)
[2020-10-16 14:13] LABS: Partial Thromboplastin Time 36.4 Sec. (24.2-36.6)
[2020-10-16] MEDS: oxyCODONE 5 MG TAB PO PRN ×2 (16:31→22:11)
[2020-10-16] MEDS: INSULIN LISPRO 100 UNIT/ML SUB-Q SCH ×2 (16:33)
[2020-10-16] MEDS: APIXABAN 5 MG TAB PO SCH (22:11)
[2020-10-16] MEDS: ZOLPIDEM 5 MG TAB PO PRN (22:11)
[2020-10-16] MEDS: INSULIN GLARGINE 100 UNITS/ML SUB-Q SCH (22:12)
[2020-10-17] MEDS: INSULIN LISPRO 100 UNIT/ML SUB-Q SCH ×8 (02:25→21:40)
[2020-10-17 04:33] LABS: Basophils # (Auto) 0.1 K/mm3 (0.0-0.1); Basophils % (Auto) 1.2 % (0.0-1.8); Eosinophils # (Auto) 0.5 K/mm3 (0.0-0.4); Eosinophils % (Auto) 5.6 % (0.0-4.3); Hematocrit 26.1 % (30.3-42.9); Hemoglobin 8.8 gm/dl (10.1-14.3); Mean Corpuscular HGB Conc 34 % (30-34); Mean Corpuscular Volume 87 fl (79-97); Monocytes # (Auto) 0.8 K/mm3 (0.0-0.8); Monocytes % (Auto) 8.6 % (0.0-7.3); Platelet Count 654 K/mm3 (140-440); Red Blood Count 3.01 M/mm3 (3.65-5.03)
[2020-10-17 04:56] LABS: Albumin 3.2 g/dL (3.9-5); Calcium 8.6 mg/dL (8.4-10.2)
--- NOTE | 2020-10-17 07:37 | History and Physical Report ---
History of Present Illness Date: 10/17/20 Date of admission: 10/16/20 08:28 Chief Complaint: Right BKA History of present illness: 74-year-old female who presented to the ER on 10/04 with worsening right lower extremity wounds. Patient has longstanding history of peripheral vascular disease and has previously undergone endovascular interventions however the wounds were not healing. She was offered amputation but wanted to pursue limb salvage if at all possible. She was started on antibiotics for wound infection and after period of time and discussing with her family opted for a amputation. Patient does have a knee replacement in the right leg and the steps were taken to make sure that the amputation was below the level of the hardware. She had good popliteal pulse. Dr. Uday Mackay performed a right BKA on 10/11. Amputation was without complications. Patient did have ongoing blood loss and anemia and she was transfused 1 unit of packed red blood cells on 10/14. During a previous hospitalization, patient was placed on Eliquis for severe peripheral vascular disease along with antiplatelets. After the patient was medically stabilized they were transferred for further rehabilitation. All available medical records have been reviewed. Plan of care was discussed with patient. Approximately 45 minutes was invested and record review of patient's prior medical history here in the hospital. Also had prolonged discussion with the patient including approximately 25 minutes [id number] discussing her prognosis and future prosthesis. Patient is planning to move to [place] with her daughter in the near future. She and her significant other will move in with them and will likely need to have continued medical support there. Discussed this with the patient and advised her that she may need to ensure that her future insurance will cover the prosthesis without any issues and that she may want to try and obtain the prosthesis here before she changes insurance. Past History Past Medical History: anemia, COPD, diabetes, GERD, hypertension, PVD Past Surgical History: cholecystectomy, total knee replacement Social history: lives with family (Significant other), smoking. denies: alcohol abuse (Occasional use) Family history: no significant family history (Patient states she is adopted and does not know any family history) Medications and Allergies Allergies Allergy/AdvReac Type Severity Reaction Status Date / Time Penicillins Allergy Unknown Verified 10/04/20 10:45 sutures AdvReac Swelling Uncoded 10/11/20 11:39 Home Medications Medication Instructions Recorded Confirmed Last Taken Type Lispro Insulin [HumaLOG] See Protocol SQ ACHS 09/13/17 10/11/20 Unknown History Pantoprazole [Protonix TAB] 40 mg PO DAILY #7 tablet 06/11/18 10/11/20 Unknown Rx Zolpidem [Ambien] 5 mg PO QHS PRN #5 tablet 06/11/18 10/11/20 Unknown Rx Aspirin EC [Halfprin EC] 81 mg PO QDAY #30 tablet 08/09/20 10/11/20 Unknown Rx Insulin NPH/Regular [NovoLIN 70/30] 25 unit SUB-Q BID 30 Days units 08/09/20 10/11/20 10/03/20 08:00 Rx cilostazoL [Pletal] 100 mg PO BID #60 tablet 08/09/20 10/11/20 Unknown Rx Apixaban [Eliquis] 5 mg PO Q12HR #60 tablet 10/15/20 Unknown Rx Nicotine [Habitrol] 7 mg TD QDAY #1 patch 10/15/20 Unknown Rx oxyCODONE /ACETAMINOPHEN [Percocet 2 tab PO Q4H PRN tablet 10/15/20 Unknown Rx 5/325 mg] Active Meds: Active Medications Acetaminophen (Acetaminophen 325 Mg Tab) 650 mg PO Q6H PRN PRN Reason: Non Cardiac Pain or Temp>100.5 Albuterol (Albuterol 2.5 Mg/3 Ml Nebu) 2.5 mg IH Q4HRT PRN PRN Reason: Shortness Of Breath Apixaban (Apixaban 5 Mg Tab) 5 mg PO Q12HR MARGARET; Protocol Last Admin: 10/16/20 22:11 Dose: 5 mg Documented by: Aspirin (Aspirin Ec 81 Mg Tab) 81 mg PO 0800 [facility] Dextrose (Dextrose 50% In Water (25gm) 50 Ml Syringe) 50 ml IV Q30MIN PRN; Protocol PRN Reason: Hypoglycemia Hydralazine HCl (Hydralazine 20 Mg/1 Ml Inj) 10 mg IV Q4HR PRN PRN Reason: Hypertension Insulin Glargine (Insulin Glargine 100 Units/Ml) 20 units SUB-Q 2100 MARGARET Last Admin: 10/16/20 22:12 Dose: 20 units Documented by: Insulin Human Lispro (Insulin Lispro 100 Unit/Ml) 8 unit SUB-Q AC [facility] Last Admin: 10/16/20 16:33 Dose: 8 unit Documented by: Insulin Human Lispro (Insulin Lispro 100 Unit/Ml) 0 unit SUB-Q ACHS [facility]; Protocol Last Admin: 10/17/20 02:25 Dose: Not Given Documented by: Nicotine (Nicotine 7 Mg/24 Hr Patch) 7 mg TD 0800 [facility] Ondansetron HCl (Ondansetron 4 Mg Odt Tab) 4 mg PO Q8H PRN PRN Reason: Nausea And Vomiting Oxycodone HCl (Oxycodone 5 Mg Tab) 5 mg PO Q4H PRN PRN Reason: Pain, Moderate (4-6) Last Admin: 10/16/20 22:11 Dose: 5 mg Documented by: Oxycodone HCl (Oxycodone 5 Mg Tab) 10 mg PO Q4H PRN PRN Reason: Pain , Severe (7-10) Last Admin: 10/16/20 16:31 Dose: 10 mg Documented by: Pantoprazole Sodium (Pantoprazole 40 Mg Tab) 40 mg PO QDAC MARGARET Polyethylene Glycol (Polyethylene Glycol 3350 17 Gm Powder) 17 gm PO QDAY PRN PRN Reason: Constipation Zolpidem Tartrate (Zolpidem 5 Mg Tab) 5 mg PO QHS PRN PRN Reason: Sleep Last Admin: 10/16/20 22:11 Dose: 5 mg Documented by: Review of Systems All systems: negative (ROS negative for 10 systems except as noted below with pertinent positives and negatives.) Constitutional: no fever, no chills Ears, nose, mouth and throat: no decreased hearing Cardiovascular: no chest pain, no palpitations, no edema Respiratory: no cough, no shortness of breath Gastrointestinal: no abdominal pain, no nausea, no vomiting Musculoskeletal: gait dysfunction, prior amputations Integumentary: wounds (Right BKA's), no rash Neurological: parathesias (Phantom sensation), no tremors Psychiatric: insomnia, sadness/tearfullness (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 Hearing intact to soft voice RESPIRATORY: Clear to auscultation bilaterally, no increased work of breathing CARDIOVASCULAR: Regular Rate/ Rhythm, no swelling, edema or tenderness in BUE or BLE. All extremities warm. GI: + bowel sounds, soft, NTTP, nondistended. INTEGUMENTARY: Normal, no lesion, rash, masses or bruising noted in extremities. Right BKA wound MUSCULOSKELETAL: Right BKA, BUE and BLE normal without defect, crepitus, subluxation, effusion, arthritic changes or TTP. BUE 4+/5, good ROM, with normal tone. LLE 4+/5 good ROM, with normal tone, RLE with reasonable range of motion and 4- /5, knee immobilizer/stump protector in place NEURO: CN 2-12 grossly intact. Sensation intact in all extremities. Reflexes 2+ bilaterally at biceps, brachioradialis and left patella. No clonus at ankle. Coordination intact in BUE. No tremor noted in 4 extremities. POSTURE and GAIT: Sitting posture good. Balance and gait deferred until seen with therapy due to safety concerns. PSYCH: Alert, oriented x3, affect appears normal to slightly blunted. Insight appears intact. - Constitutional Vitals: Vital Signs - 12hr 10/16/20 10/16/20 10/17/20 20:16 23:30 04:50 Temperature 98.8 F 98.3 F 98.0 F Pulse Rate 92 H 89 85 Respiratory 16 18 18 Rate Blood Pressure 150/66 133/59 141/58 O2 Sat by Pulse 96 100 98 Oximetry - Labs CBC & Chem 7: 10/17/20 04:04 10/17/20 04:04 Labs: Laboratory Results - last 72 hr 10/16/20 10/16/20 10/16/20 11:56 13:49 13:49 WBC 9.8 RBC 3.06 L Hgb 9.2 L Hct 26.5 L MCV 87 MCH 30 MCHC 35 H RDW 14.0 Plt Count 639 H Lymph % (Auto) Towner % (Auto) Eos % (Auto) Baso % (Auto) Lymph # (Auto) Towner # (Auto) Eos # (Auto) Baso # (Auto) Seg Neutrophils % Seg Neutrophils # PT 14.8 INR 1.16 H APTT 36.4 Sodium Potassium Chloride Carbon Dioxide Anion Gap BUN Creatinine Estimated GFR BUN/Creatinine Ratio Glucose POC Glucose 209 H Calcium Total Bilirubin AST ALT Alkaline Phosphatase Total Protein Albumin Albumin/Globulin Ratio 10/16/20 10/16/20 10/16/20 13:49 16:22 21:27 WBC RBC Hgb Hct MCV MCH MCHC RDW Plt Count Lymph % (Auto) Towner % (Auto) Eos % (Auto) Baso % (Auto) Lymph # (Auto) Towner # (Auto) Eos # (Auto) Baso # (Auto) Seg Neutrophils % Seg Neutrophils # PT INR APTT Sodium Potassium Chloride Carbon Dioxide Anion Gap BUN Creatinine 1.0 Estimated GFR 54 BUN/Creatinine Ratio Glucose POC Glucose 203 H 139 H Calcium Total Bilirubin AST ALT Alkaline Phosphatase Total Protein Albumin Albumin/Globulin Ratio 10/17/20 10/17/20 04:04 04:04 WBC 9.5 RBC 3.01 L Hgb 8.8 L Hct 26.1 L MCV 87 MCH 29 MCHC 34 RDW 14.0 Plt Count 654 H Lymph % (Auto) 21.0 Towner % (Auto) 8.6 H Eos % (Auto) 5.6 H Baso % (Auto) 1.2 Lymph # (Auto) 2.0 Towner # (Auto) 0.8 Eos # (Auto) 0.5 H Baso # (Auto) 0.1 Seg Neutrophils % 63.6 Seg Neutrophils # 6.0 PT INR APTT Sodium 133 L Potassium 4.5 Chloride 97.2 L Carbon Dioxide 26 Anion Gap 14 BUN 16 Creatinine 1.0 Estimated GFR 54 BUN/Creatinine Ratio 16 Glucose 111 H POC Glucose Calcium 8.6 Total Bilirubin 0.20 AST 24 ALT 22 Alkaline Phosphatase 247 H Total Protein 7.0 Albumin 3.2 L Albumin/Globulin Ratio 0.8 Assessment and Plan Assessment and plan: Patient was assessed and evaluated for Acute Inpatient Rehab Unit. Due to the patients above-mentioned medical complexity, along with decreased functional mobility and self care, this patient continues to require and be appropriate for a comprehensive, multidisciplinary [id number] rehabilitation program. These needs cannot be met in an outpatient or other less intensive setting. The patient would continue to benefit from skilled therapy intervention for at least 3 hours per day, five days a week, with techniques specific to the needs of the patient to improve function, activities of daily living, and reintegration into the community. The patient continues to require: -- OT to improve ROM, self-care, and learn use of adaptive equipment -- PT to improve strength and balance, functional transfers, and ambulation with energy conservation techniques to improve functional mobility -- 24 hour RN to ensure and prevent skin breakdown, promote progressive independence while ensuring safety, ensure education regarding medications, and incorporation of the rehabilitation at the bedside -- 24 hour Hotel Front Desk Clerk to coordinate this interdisciplinary program, and to manage/prevent complications as a result of the patients medical comorbidities. -Plan of care by day 4 -Weekly team conferences With such a program, there is a reasonable certainty that the goals individualized for this patient can be achieved within the specified length of stay. Right BKA: Continue to utilize right limb protector. Continue therapy to improve patient's overall mobility and self-care. Monitor wound for any signs of worsening, infection, dehiscence. Wound care has been consulted. Notify vascular surgery for any issues with wound healing. Have discussed working with the prosthetists with the patient and will work on getting her referral for further fitting as she progresses and when the time is right/approved by surgeon. Phantom sensation: Continue desensitization and monitor for any signs of phantom pain. If patient does start having issues with phantom pain we can start further medications as needed. Discussion had with patient about phantom sensation and best ways to control it. Postoperative pain: Patient was taking IV pain meds up until day of discharge and admittance to acute rehab. All medications have been adjusted to oral doses of oxycodone. Continue to monitor patient's pain and adjust medications as needed with the goal of dose reduction as we move further from the surgery. Anemia: Patient previously transfuse 1 unit PRBCs on acute care side. Monitor hemoglobin on a regular basis and transfuse as needed. Primarily acute blood loss anemia. May check iron, folate and B12 if hemoglobin does not significantly improve. COPD: Continue albuterol. Patient continues to smoke and has been counseled on smoking cessation. Monitor O2 saturations and adjust medications as needed Hypertension: Patient's blood pressure has been running slightly elevated however she has not been on any current medications. We will continue to monitor and start medications if we see that this is not related to pain. As needed hydralazine has been ordered. Diabetes, poorly controlled: Continue sliding scale insulin and basal insulin. Carb controlled diet. Monitor glucose checks and adjust as needed. PAD/PVD: Continue Eliquis and antiplatelets. Follow-up with vascular surgery as outpatient or as needed in-house. ADL dysfunction: OT will work on improving ability to perform ADLs (including assistive devices) to increase independence and decrease caregiver burden and improve functional transfers and mobility training. Difficulty walking: PT will work on gait training and proper use of assistive devices and advance as appropriate to use of stairs and outside ambulation on uneven surfaces. Unsteadiness on feet: PT will work on improving static and dynamic sitting and standing balance as well as proper use of assistive devices to decrease risk of falls. Abnormality of gait: PT will work to improve safety and efficiency of gait through neuromotor training and gait training along with instruction on proper use of assistive devices. Muscle weakness: PT & OT will work on strengthening exercises to improve functi onal strength including mixture of closed and open kinetic chain exercises. Debility: PT & OT will work on improving overall functional status to improve participation with ADLs, mobility and social involvement. Fatigue: PT & OT will work on improving endurance through aerobic exercises and therapeutic activity while monitoring patients tolerance for activity and vital signs as needed. DVT ppx: Eliquis Pain: Continue physical modalities in therapy and pain medications as needed to achieve functional pain control. Sleep: Monitor and address as needed. Ambien as needed Bowel: Monitor and address as needed. Appetite: Monitor and address as needed. Discharge planning: Pending therapy progress and care plan meeting. Will continue discussion with therapy team, SW, patient and family. Restrictions/ Precautions: Falls, wound WB status: NWB on RLE Functional Hx: ADLs: Independent Cognition: Independent Mobility: No AD Barriers to Discharge: Decreased mobility and ability to perform self care, balance deficits, weakness Estimated Length of Stay: 1014 days Discharge Destination: Home with significant other in a trailer with 3 steps POST ADMISSION PHYSICIAN EVALUATION I have examined the patient and find that functional status, medical condition and appropriateness for IRF admission are essentially unchanged from those described in the preadmission screening. Will monitor for worsening wound infection, wound dehiscence, phantom limb pain, DVT/PE, bowel and bladder com plications and complications due to PVD, hypertension, diabetes, COPD, anemia and electrolyte abnormalities. Will attempt to avoid occurrence of these issues or treat them if they present themselves.
[2020-10-17] MEDS: APIXABAN 5 MG TAB PO SCH ×3 (08:04→21:37)
[2020-10-17] MEDS: PANTOPRAZOLE 40 MG TAB PO SCH (08:04)
[2020-10-17] MEDS: oxyCODONE 5 MG TAB PO PRN ×3 (08:04→21:37)
[2020-10-17] MEDS: NICOTINE 7 MG/24 HR PATCH TD SCH (08:05)
[2020-10-17] MEDS: ASPIRIN EC 81 MG TAB PO SCH (08:05)
[2020-10-17] MEDS: INSULIN GLARGINE 100 UNITS/ML SUB-Q SCH (21:36)
[2020-10-17] MEDS: ZOLPIDEM 5 MG TAB PO PRN (21:37)
[2020-10-18] MEDS: ASPIRIN EC 81 MG TAB PO SCH (08:32)
[2020-10-18] MEDS: NICOTINE 7 MG/24 HR PATCH TD SCH (08:32)
[2020-10-18] MEDS: PANTOPRAZOLE 40 MG TAB PO SCH (08:32)
[2020-10-18] MEDS: INSULIN LISPRO 100 UNIT/ML SUB-Q SCH ×7 (08:33→23:28)
--- NOTE | 2020-10-18 08:52 | Progress Note ---
Subjective Date of service: 10/18/20 Principal diagnosis: Right BKA Interval history: 74-year-old female who presented to the ER on 10/04 with worsening right lower extremity wounds. Patient has longstanding history of peripheral vascular disease and has previously undergone endovascular interventions however the wounds were not healing. She was offered amputation but wanted to pursue limb salvage if at all possible. She was started on antibiotics for wound infection and after period of time and discussing with her family opted for a amputation. Patient does have a knee replacement in the right leg and the steps were taken to make sure that the amputation was below the level of the hardware. She had good popliteal pulse. Dr. Uday Mackay performed a right BKA on 10/11. Amputation was without complications. Patient did have ongoing blood loss and anemia and she was transfused 1 unit of packed red blood cells on 10/14. During a previous hospitalization, patient was placed on Eliquis for severe peripheral vascular disease along with antiplatelets. After the patient was medically stabilized they were transferred for further rehabilitation. All available medical records have been reviewed. Plan of care was discussed with patient. Approximately 45 minutes was invested and record review of patient's prior medical history here in the hospital. Also had prolonged discussion with the patient including approximately 25 minutes [id number] discussing her prognosis and future prosthesis. Patient is planning to move to [place] with her daughter in the near future. She and her significant other will move in with them and will likely need to have continued medical support there. Interval History: Patient is participating in therapy and making reasonable progress. Taking rest breaks as needed. +BM. Denies palpitations, dyspnea, cough, N/V, weakness, or joint pain. Is having postsurgical pain as well as onset of neuropathic pain today in the stump. Denies overt phantom pain but still has phantom sensations. Blood pressure looks to be a little bit better today. Patient is having hypotension with therapy when standing. Right BKA: Continue to monitor for any signs of dehiscence or infection. Wound was inspected and dressing was changed by me personally yesterday. Have requested wound care evaluation. Dressings should be changed every other day. Stump protector in place. Hypertension: Hypertension slightly better today than it was yesterday. Patient continues to not require medications at this point. States that she was taking amlodipine 10 mg at home which is not in the medical record so far. If we keep having issues with hypotension, would be hesitant to start any antihypertensives. Diabetes: Diabetes fairly well controlled, did have an episode of elevated glucose, will continue to monitor and adjust medications as needed for tight glucose control to improve wound healing. PVD: Continue supportive care monitor. Can patient continues on aspirin and Eliquis. Will need to contact vascular surgeon to confirm dosage of 5 mg twice daily on Eliquis versus 2.5 mg previously. Pain: Postoperative pain fairly well controlled on current dosing of opioids. Patient does have onset of neuropathic pain, will start gabapentin and titrate slowly for effect. Anemia: Hemoglobin improved on last lab check. We will continue to monitor and transfuse as needed. All records, vitals, labs and medications were reviewed. No other issues per patient, nursing or therapy. Patient discussed during team conference. We are having some issues with hypotension primarily diastolic. Do not believe that patient is getting symptomatic from this we will try and continue pushing forward with therapy. With holding restarting home dose of amlodipine at this point due to blood pressure concerns. Seems like hypertensive episodes may be related to pain. Anticipate keeping the patient for approximately 10 days and discharging home with significant other. At a later point in time patient is planning for her and her significant other to move to [place] to live with her daughter who is preparing a place in her home for them. Patient states she already has a shower chair and rolling walker at home. Will need to discharge with a wheelchair. Objective - Exam Narrative Exam: MUSCULOSKELETAL SPECIALTY EXAM CONSTITUTIONAL: Well developed, well nourished, appropriately groomed, thin RESPIRATORY: Clear to auscultation bilaterally, no increased work of breathing CARDIOVASCULAR: Regular Rate/ Rhythm, no swelling, edema or tenderness in BUE or BLE. All extremities warm. GI: + bowel sounds, soft, NTTP, nondistended. INTEGUMENTARY: Normal, no lesion, rash, masses or bruising noted in extremities. Right BKA wound with slight drainage, blister on inferior medial aspect. MUSCULOSKELETAL: Right BKA, BUE and BLE normal without defect, crepitus, subluxation, effusion, arthritic changes or TTP. BUE 4+/5, good ROM, with normal tone. LLE 4+/5 good ROM, with normal tone, RLE with reasonable range of motion and 4- /5, knee immobilizer/stump protector in place NEURO: Sensation intact in all extremities. No tremor noted in 4 extremities. POSTURE and GAIT: Sitting posture good. Balance and gait deferred until seen with therapy due to safety concerns. PSYCH: Alert, oriented x3, affect appears normal to slightly blunted. Insight appears i ntact. - Constitutional Vitals: Vital Signs - 12hr 10/17/20 10/17/20 10/17/20 21:37 22:00 22:37 Temperature Pulse Rate Respiratory 17 17 Rate Respiratory 17 Rate [Right Residual limb.] Respiratory 17 Rate [Right Residual limb] Blood Pressure O2 Sat by Pulse Oximetry 10/18/20 10/18/20 07:34 08:00 Temperature 98.4 F Pulse Rate 90 Respiratory 16 Rate Respiratory Rate [Right Residual limb.] Respiratory Rate [Right Residual limb] Blood Pressure 123/58 O2 Sat by Pulse 99 Oximetry - Allied health notes Allied health notes reviewed: nursing, PT, OT - Labs CBC & Chem 7: 10/17/20 04:04 10/17/20 04:04 Labs: Laboratory Results - last 72 hr 10/16/20 10/16/20 10/16/20 11:56 13:49 13:49 WBC 9.8 RBC 3.06 L Hgb 9.2 L Hct 26.5 L MCV 87 MCH 30 MCHC 35 H RDW 14.0 Plt Count 639 H Lymph % (Auto) [place] % (Auto) Eos % (Auto) Baso % (Auto) Lymph # (Auto) [place] # (Auto) Eos # (Auto) Baso # (Auto) Seg Neutrophils % Seg Neutrophils # PT 14.8 INR 1.16 H APTT 36.4 Sodium Potassium Chloride Carbon Dioxide Anion Gap BUN Creatinine Estimated GFR BUN/Creatinine Ratio Glucose POC Glucose 209 H Calcium Total Bilirubin AST ALT Alkaline Phosphatase Total Protein Albumin Albumin/Globulin Ratio 10/16/20 10/16/20 10/16/20 13:49 16:22 21:27 WBC RBC Hgb Hct MCV MCH MCHC RDW Plt Count Lymph % (Auto) [place] % (Auto) Eos % (Auto) Baso % (Auto) Lymph # (Auto) [place] # (Auto) Eos # (Auto) Baso # (Auto) Seg Neutrophils % Seg Neutrophils # PT INR APTT Sodium Potassium Chloride Carbon Dioxide Anion Gap BUN Creatinine 1.0 Estimated GFR 54 BUN/Creatinine Ratio Glucose POC Glucose 203 H 139 H Calcium Total Bilirubin AST ALT Alkaline Phosphatase Total Protein Albumin Albumin/Globulin Ratio 10/17/20 10/17/20 10/17/20 04:04 04:04 07:22 WBC 9.5 RBC 3.01 L Hgb 8.8 L Hct 26.1 L MCV 87 MCH 29 MCHC 34 RDW 14.0 Plt Count 654 H Lymph % (Auto) 21.0 [place] % (Auto) 8.6 H Eos % (Auto) 5.6 H Baso % (Auto) 1.2 Lymph # (Auto) 2.0 [place] # (Auto) 0.8 Eos # (Auto) 0.5 H Baso # (Auto) 0.1 Seg Neutrophils % 63.6 Seg Neutrophils # 6.0 PT INR APTT Sodium 133 L Potassium 4.5 Chloride 97.2 L Carbon Dioxide 26 Anion Gap 14 BUN 16 Creatinine 1.0 Estimated GFR 54 BUN/Creatinine Ratio 16 Glucose 111 H POC Glucose 79 Calcium 8.6 Total Bilirubin 0.20 AST 24 ALT 22 Alkaline Phosphatase 247 H Total Protein 7.0 Albumin 3.2 L Albumin/Globulin Ratio 0.8 10/17/20 10/17/20 10/17/20 11:38 15:56 21:08 WBC RBC Hgb Hct MCV MCH MCHC RDW Plt Count Lymph % (Auto) [place] % (Auto) Eos % (Auto) Baso % (Auto) Lymph # (Auto) [place] # (Auto) Eos # (Auto) Baso # (Auto) Seg Neutrophils % Seg Neutrophils # PT INR APTT Sodium Potassium Chloride Carbon Dioxide Anion Gap BUN Creatinine Estimated GFR BUN/Creatinine Ratio Glucose POC Glucose 205 H 132 H 176 H Calcium Total Bilirubin AST ALT Alkaline Phosphatase Total Protein Albumin Albumin/Globulin Ratio 10/18/20 07:33 WBC RBC Hgb Hct MCV MCH MCHC RDW Plt Count Lymph % (Auto) [place] % (Auto) Eos % (Auto) Baso % (Auto) Lymph # (Auto) [place] # (Auto) Eos # (Auto) Baso # (Auto) Seg Neutrophils % Seg Neutrophils # PT INR APTT Sodium Potassium Chloride Carbon Dioxide Anion Gap BUN Creatinine Estimated GFR BUN/Creatinine Ratio Glucose POC Glucose 122 H Calcium Total Bilirubin AST ALT Alkaline Phosphatase Total Protein Albumin Albumin/Globulin Ratio Assessment and Plan Right BKA: Continue to utilize right limb protector. Continue therapy to improve patient's overall mobility and self-care. Monitor wound for any signs of worsening, infection, dehiscence. Wound care has been consulted. Notify vascular surgery for any issues with wound healing. Have discussed working with the prosthetists with the patient and will work on getting her referral for further fitting as she progresses and when the time is right/approved by surgeon. Phantom sensation: Continue desensitization and monitor for any signs of phantom pain. If patient does start having issues with phantom pain we can start further medications as needed. Discussion had with patient about phantom sensation and best ways to control it. We will start gabapentin for neuropathic pain Postoperative pain: Patient was taking IV pain meds up until day of discharge and admittance to acute rehab. All medications have been adjusted to oral doses of oxycodone. Continue to monitor patient's pain and adjust medications as needed with the goal of dose reduction as we move further from the surgery. Anemia: Patient previously transfuse 1 unit PRBCs on acute care side. Monitor hemoglobin on a regular basis and transfuse as needed. Primarily acute blood loss anemia. May check iron, folate and B12 if hemoglobin does not significantly improve. COPD: Continue albuterol. Patient continues to smoke and has been counseled on smoking cessation. Monitor O2 saturations and adjust medications as needed Hypertension: Patient's blood pressure has been running slightly elevated however she has not been on any current medications. We will continue to monitor and start medications if we see that this is not related to pain. As needed hydralazine has been ordered. Diabetes, poorly controlled: Continue sliding scale insulin and basal insulin. Carb controlled diet. Monitor glucose checks and adjust as needed. PAD/PVD: Continue Eliquis and antiplatelets. Follow-up with vascular surgery as outpatient or as needed in-house. ADL dysfunction: OT will work on improving ability to perform ADLs (including assistive devices) to increase independence and decrease caregiver burden and improve functional transfers and mobility training. Difficulty walking: PT will work on gait training and proper use of assistive devices and advance as appropriate to use of stairs and outside ambulation on uneven surfaces. Unsteadiness on feet: PT will work on improving static and dynamic sitting and standing balance as well as proper use of assistive devices to decrease risk of falls. Abnormality of gait: PT will work to improve safety and efficiency of gait through neuromotor training and gait training along with instruction on proper use of assistive devices. Muscle weakness: PT & OT will work on strengthening exercises to improve functional strength including mixture of closed and open kinetic chain exercises. Debility: PT & OT will work on improving overall functional status to improve participation with ADLs, mobility and social involvement. Fatigue: PT & OT will work on improving endurance through aerobic exercises and therapeutic activity while monitoring patients tolerance for activity and vital signs as needed. DVT ppx: Eliquis Pain: Continue physical modalities in therapy and pain medications as needed to achieve functional pain control. Sleep: Monitor and address as needed. Ambien as needed Bowel: Monitor and address as needed. Appetite: Monitor and address as needed. Discharge planning: Pending therapy progress and care plan meeting. Will continue discussion with therapy team, SW, patient and family. Patient has rolling walker and shower chair at home. Will need to discharge with a wheelchair. Restrictions/ Precautions: Falls, wound WB status: NWB on RLE Functional Hx: ADLs: Independent Cognition: Independent Mobility: No AD Barriers to Discharge: Decreased mobility and ability to perform self care, balance deficits, weakness Estimated Length of Stay: 1014 days Discharge Destination: Home with significant other in a trailer with 3 steps
[2020-10-18] MEDS: oxyCODONE 5 MG TAB PO PRN ×3 (10:01→21:44)
[2020-10-18] MEDS: APIXABAN 5 MG TAB PO SCH ×2 (10:02→21:44)
[2020-10-18] MEDS: INSULIN GLARGINE 100 UNITS/ML SUB-Q SCH (21:43)
[2020-10-18] MEDS: GABAPENTIN 300 MG CAP PO SCH (21:43)
[2020-10-18] MEDS: ZOLPIDEM 5 MG TAB PO PRN (23:26)
[2020-10-19 07:29] LABS: Hematocrit 26.4 % (30.3-42.9); Hemoglobin 8.8 gm/dl (10.1-14.3); Mean Corpuscular HGB Conc 33 % (30-34); Mean Corpuscular Volume 87 fl (79-97); Platelet Count 720 K/mm3 (140-440); Red Blood Count 3.02 M/mm3 (3.65-5.03); Red Cell Distribution Width 14.4 % (13.2-15.2)
[2020-10-19 07:51] LABS: Calcium 8.6 mg/dL (8.4-10.2)
--- NOTE | 2020-10-19 07:56 | Progress Note ---
Subjective Date of service: 10/19/20 Principal diagnosis: Right BKA Interval history: 74-year-old female who presented to the ER on 10/04 with worsening right lower extremity wounds. Patient has longstanding history of peripheral vascular disease and has previously undergone endovascular interventions however the wounds were not healing. She was offered amputation but wanted to pursue limb salvage if at all possible. She was started on antibiotics for wound infection and after period of time and discussing with her family opted for a amputation. Patient does have a knee replacement in the right leg and the steps were taken to make sure that the amputation was below the level of the hardware. She had good popliteal pulse. Dr. Uday Mackay performed a right BKA on 10/11. Amputation was without complications. Patient did have ongoing blood loss and anemia and she was transfused 1 unit of packed red blood cells on 10/14. During a previous hospitalization, patient was placed on Eliquis for severe peripheral vascular disease along with antiplatelets. After the patient was medically stabilized they were transferred for further rehabilitation. All available medical records have been reviewed. Plan of care was discussed with patient. Approximately 45 minutes was invested and record review of patient's prior medical history here in the hospital. Also had prolonged discussion with the patient including approximately 25 minutes [id number] discussing her prognosis and future prosthesis. Patient is planning to move to [place] with her daughter in the near future. She and her significant other will move in with them and will likely need to have continued medical support there. Interval History: Patient is participating in therapy and making reasonable progress. Taking rest breaks as needed. -BM. Denies palpitations, dyspnea, cough, N/V, weakness, or joint pain. Is having postsurgical pain as well as onset of neuropathic pain today in the stump. Denies overt phantom pain but still has phantom sensations. Blood pressure improved. Scheduled insulin dose with meals has not been given, will discontinue that and increase sliding scale insulin, apparently after speaking with nursing the patient is having glucose values in the 40s and 30s but this is not being and put into the computer. Nursing showed me one of the glucose monitors with a value in the 30s from this morning's glucose check. Right BKA: Continue to monitor for any signs of dehiscence or infection. Wound intact. Wound care has evaluated. Dressings should be changed every other day. Stump protector in place. Hypertension: Hypertension improved. Patient continues to not require medications at this point. States that she was taking amlodipine 10 mg at home which is not in the medical record so far. No reports of hypotensive episodes with therapy noted in documentation. We will continue to monitor. At this point will avoid restarting antihypertensives as patient seems to be within a normal range. Diabetes: Poorly controlled overall. Undocumented in the medical record but confirmed with nursing and the patient that she is having large swings in the 200 and then in the 30 or 40 range. Patient uncertain of her home insulin type but does state that she takes 25 units at night. Also states that she infrequently has hypoglycemic episodes but does keep high sugar foods available for emergencies. Will split her dose of Lantus and have increased the sliding scale. PVD: Continue supportive care monitor. Can patient continues on aspirin and Eliquis. Will need to contact vascular surgeon to confirm dosage of 5 mg twice daily on Eliquis versus 2.5 mg previously. Pain: Postoperative pain fairly well controlled on current dosing of opioids. Tolerating starting dose of gabapentin. We will slowly titrate as needed. Anemia: We will continue to monitor and transfuse as needed. Hemoglobin stable Constipation: Continue bowel medications and monitor for improvement. Patient is having intermittent bowel movements. Encouraging her to use toilet versus bedpan. Insomnia: Continue Ambien as needed. Patient previously took this and this is not my first choice of medication for someone her age. Improved last night with a later dose in conjunction with gabapentin. All records, vitals, labs and medications were reviewed. No other issues per pa tient, nursing or therapy. Objective - Exam Narrative Exam: MUSCULOSKELETAL SPECIALTY EXAM CONSTITUTIONAL: Well developed, well nourished, appropriately groomed, thin RESPIRATORY: Clear to auscultation bilaterally, no increased work of breathing CARDIOVASCULAR: Regular Rate/ Rhythm, no swelling, edema or tenderness in BUE or BLE. All extremities warm. GI: + bowel sounds, soft, NTTP, nondistended. INTEGUMENTARY: Normal, no lesion, rash, masses or bruising noted in extremities. Right BKA wound with slight drainage, blister on inferior medial aspect. MUSCULOSKELETAL: Right BKA, BUE and BLE normal without defect, crepitus, subluxation, effusion, arthritic changes or TTP. BUE 4+/5, good ROM, with normal tone. LLE 4+/5 good ROM, with normal tone, RLE with reasonable range of motion and 4- /5, stump protector in place NEURO: Sensation intact in all extremities. No tremor noted in 4 extremities. POSTURE and GAIT: Sitting posture good. PSYCH: Alert, oriented x3, affect appears normal to slightly blunted. Insight appears intact. - Constitutional Vitals: Vital Signs - 12hr 10/18/20 10/18/20 10/19/20 22:00 22:40 05:09 Temperature 99.2 F 97.9 F Pulse Rate 89 80 Respiratory 18 18 Rate Respiratory 17 Rate [Right Residual limb.] Respiratory 17 Rate [Right Residual limb] Blood Pressure 135/55 127/60 O2 Sat by Pulse 97 97 Oximetry 10/19/20 07:14 Temperature 98.0 F Pulse Rate 79 Respiratory 16 Rate Respiratory Rate [Right Residual limb.] Respiratory Rate [Right Residual limb] Blood Pressure 121/59 O2 Sat by Pulse 99 Oximetry - Allied health notes Allied health notes reviewed: nursing, PT, OT FIMS assessment as documented by PT/OT/ST: Grooming Patient cleans teeth/dentures: Yes Patient duckworth/brushes hair: Yes Patient washes, rinses and Yes dries face: Patient washes, rinses and Yes dries hands: Grooming FIM Score 5. Supervision ([place] applies toothpaste or opens containers.) Toileting Patient able to: Adjust clothes before,Clean self Patient able to perform: 2/3 (67%) Toileting FIM Score 5. Supv./Set-Up (Needs stand-by, set-up, applying prosth/orth.) Social interaction/Memory/Problem solving Social Interaction FIM Score 6. Mod. [place] (Mostly appropriate. May need meds. No supv.) Memory FIM Score 6. Modified [place](Mild difficulty remembering people/routines.) Problem Solving FIM Score 5. Supervision (Needs cueing <10% to solve routine problems.) Transfers Mode of Locomotion: Wheelchair Bed/Chair/Wheelchair Transfers 5. Supervision (Needs supv. or set-up for FIM Score sliding board, foot rests.) Eating Eating FIM Score 6. Modified [place] (Special consistency or uses device.) Dressing-Upper body Patient retrieves clothing Yes items: Upper Body Dressing FIM Score 5. Supv./Set-Up (Burnett sets out clothes or applies pros./orth.) Dressing-lower body Patient retrieves clothing Yes items: Patient applies/removes LE Yes prosthesis or orthosis: Lower Body Dressing FIM Score 5. Supv./Set-Up ([place]ett sets out clothes or applies pros./orth.) - Labs CBC & Chem 7: 10/19/20 06:35 10/19/20 06:35 Labs: Laboratory Results - last 72 hr 10/16/20 10/16/20 10/16/20 11:56 13:49 13:49 WBC 9.8 RBC 3.06 L Hgb 9.2 L Hct 26.5 L MCV 87 MCH 30 MCHC 35 H RDW 14.0 Plt Count 639 H Lymph % (Auto) [place]iles % (Auto) Eos % (Auto) Baso % (Auto) Lymph # (Auto) [place]iles # (Auto) Eos # (Auto) Baso # (Auto) Seg Neutrophils % Seg Neutrophils # PT 14.8 INR 1.16 H APTT 36.4 Sodium Potassium Chloride Carbon Dioxide Anion Gap BUN Creatinine Estimated GFR BUN/Creatinine Ratio Glucose POC Glucose 209 H Calcium Total Bilirubin AST ALT Alkaline Phosphatase Total Protein Albumin Albumin/Globulin Ratio 10/16/20 10/16/20 10/16/20 13:49 16:22 21:27 WBC RBC Hgb Hct MCV MCH MCHC RDW Plt Count Lymph % (Auto) [place]iles % (Auto) Eos % (Auto) Baso % (Auto) Lymph # (Auto) [place]iles # (Auto) Eos # (Auto) Baso # (Auto) Seg Neutrophils % Seg Neutrophils # PT INR APTT Sodium Potassium Chloride Carbon Dioxide Anion Gap BUN Creatinine 1.0 Estimated GFR 54 BUN/Creatinine Ratio Glucose POC Glucose 203 H 139 H Calcium Total Bilirubin AST ALT Alkaline Phosphatase Total Protein Albumin Albumin/Globulin Ratio 10/17/20 10/17/20 10/17/20 04:04 04:04 07:22 WBC 9.5 RBC 3.01 L Hgb 8.8 L Hct 26.1 L MCV 87 MCH 29 MCHC 34 RDW 14.0 Plt Count 654 H Lymph % (Auto) 21.0 Giles % (Auto) 8.6 H Eos % (Auto) 5.6 H Baso % (Auto) 1.2 Lymph # (Auto) 2.0 Giles # (Auto) 0.8 Eos # (Auto) 0.5 H Baso # (Auto) 0.1 Seg Neutrophils % 63.6 Seg Neutrophils # 6.0 PT INR APTT Sodium 133 L Potassium 4.5 Chloride 97.2 L Carbon Dioxide 26 Anion Gap 14 BUN 16 Creatinine 1.0 Estimated GFR 54 BUN/Creatinine Ratio 16 Glucose 111 H POC Glucose 79 Calcium 8.6 Total Bilirubin 0.20 AST 24 ALT 22 Alkaline Phosphatase 247 H Total Protein 7.0 Albumin 3.2 L Albumin/Globulin Ratio 0.8 10/17/20 10/17/20 10/17/20 11:38 15:56 21:08 WBC RBC Hgb Hct MCV MCH MCHC RDW Plt Count Lymph % (Auto) Giles % (Auto) Eos % (Auto) Baso % (Auto) Lymph # (Auto) Giles # (Auto) Eos # (Auto) Baso # (Auto) Seg Neutrophils % Seg Neutrophils # PT INR APTT Sodium Potassium Chloride Carbon Dioxide Anion Gap BUN Creatinine Estimated GFR BUN/Creatinine Ratio Glucose POC Glucose 205 H 132 H 176 H Calcium Total Bilirubin AST ALT Alkaline Phosphatase Total Protein Albumin Albumin/Globulin Ratio 10/18/20 10/18/20 10/18/20 07:33 11:21 16:37 WBC RBC Hgb Hct MCV MCH MCHC RDW Plt Count Lymph % (Auto) Giles % (Auto) Eos % (Auto) Baso % (Auto) Lymph # (Auto) Giles # (Auto) Eos # (Auto) Baso # (Auto) Seg Neutrophils % Seg Neutrophils # PT INR APTT Sodium Potassium Chloride Carbon Dioxide Anion Gap BUN Creatinine Estimated GFR BUN/Creatinine Ratio Glucose POC Glucose 122 H 253 H 176 H Calcium Total Bilirubin AST ALT Alkaline Phosphatase Total Protein Albumin Albumin/Globulin Ratio 10/18/20 10/19/20 10/19/20 21:34 06:35 06:35 WBC 9.3 RBC 3.02 L Hgb 8.8 L Hct 26.4 L MCV 87 MCH 29 MCHC 33 RDW 14.4 Plt Count 720 H Lymph % (Auto) Giles % (Auto) Eos % (Auto) Baso % (Auto) Lymph # (Auto) Giles # (Auto) Eos # (Auto) Baso # (Auto) Seg Neutrophils % Seg Neutrophils # PT INR APTT Sodium 133 L Potassium 4.2 Chloride 98.9 Carbon Dioxide 23 Anion Gap 15 BUN 23 H Creatinine 1.1 Estimated GFR 49 BUN/Creatinine Ratio 21 Glucose 42 L POC Glucose 162 H Calcium 8.6 Total Bilirubin AST ALT Alkaline Phosphatase Total Protein Albumin Albumin/Globulin Ratio Assessment and Plan Right BKA: Continue to utilize right limb protector. Continue therapy to improve patient's overall mobility and self-care. Monitor wound for any signs of worsening, infection, dehiscence. Wound care has been consulted. Notify vascular surgery for any issues with wound healing. Have discussed working with the prosthetists with the patient and will work on getting her referral for further fitting as she progresses and when the time is right/approved by surgeon. Phantom sensation: Continue desensitization and monitor for any signs of phantom pain. If patient does start having issues with phantom pain we can start further medications as needed. Discussion had with patient about phantom sensation and best ways to control it. We will start gabapentin for neuropathic pain Postoperative pain: Patient was taking IV pain meds up until day of discharge and admittance to acute rehab. All medications have been adjusted to oral doses of oxycodone. Continue to monitor patient's pain and adjust medications as needed with the goal of dose reduction as we move further from the surgery. Anemia: Patient previously transfuse 1 unit PRBCs on acute care side. Monitor hemoglobin on a regular basis and transfuse as needed. Primarily acute blood loss anemia. May check iron, folate and B12 if hemoglobin does not significantly improve. COPD: Continue albuterol. Patient continues to smoke and has been counseled on smoking cessation. Monitor O2 saturations and adjust medications as needed Hypertension: Blood pressure has improved without medication. We will continue to monitor and start medications if needed. As needed hydralazine has been ordered. Patient states she was previously taken amlodipine 10 mg daily. Diabetes, poorly controlled: Lantus adjusted to twice daily dosing and sliding scale increased. Patient has been having drops in glucose levels that are not in the computer record. Carb controlled diet. Monitor glucose checks and adjust as needed. PAD/PVD: Continue Eliquis and antiplatelets. Follow-up with vascular surgery as outpatient or as needed in-house. ADL dysfunction: OT will work on improving ability to perform ADLs (including assistive devices) to increase independence and decrease caregiver burden and improve functional transfers and mobility training. Difficulty walking: PT will work on gait training and proper use of assistive devices and advance as appropriate to use of stairs and outside ambulation on uneven surfaces. Unsteadiness on feet: PT will work on improving static and dynamic sitting and standing balance as well as proper use of assistive devices to decrease risk of falls. Abnormality of gait: PT will work to improve safety and efficiency of gait through neuromotor training and gait training along with instruction on proper use of assistive devices. Muscle weakness: PT & OT will work on strengthening exercises to improve functional strength including mixture of closed and open kinetic chain exe rcises. Debility: PT & OT will work on improving overall functional status to improve participation with ADLs, mobility and social involvement. Fatigue: PT & OT will work on improving endurance through aerobic exercises and therapeutic activity while monitoring patients tolerance for activity and vital signs as needed. DVT ppx: Eliquis Pain: Continue physical modalities in therapy and pain medications as needed to achieve functional pain control. Sleep: Monitor and address as needed. Ambien as needed Bowel: Monitor and address as needed. As needed medications available Appetite: Monitor and address as needed. Discharge planning: Pending therapy progress and care plan meeting. Will continue discussion with therapy team, SW, patient and family. Patient has rolling walker and shower chair at home. Will need to discharge with a wheelchair. Restrictions/ Precautions: Falls, wound WB status: NWB on RLE Functional Hx: ADLs: Independent Cognition: Independent Mobility: No AD Barriers to Discharge: Decreased mobility and ability to perform self care, balance deficits, weakness Estimated Length of Stay: 1014 days Discharge Destination: Home with significant other in a trailer with 3 steps
[2020-10-19] MEDS: INSULIN LISPRO 100 UNIT/ML SUB-Q SCH ×4 (08:38→21:59)
[2020-10-19] MEDS: APIXABAN 5 MG TAB PO SCH ×3 (08:47→21:47)
[2020-10-19] MEDS: PANTOPRAZOLE 40 MG TAB PO SCH (08:47)
[2020-10-19] MEDS: ASPIRIN EC 81 MG TAB PO SCH (08:47)
[2020-10-19] MEDS: oxyCODONE 5 MG TAB PO PRN ×2 (08:48→21:50)
[2020-10-19] MEDS: NICOTINE 7 MG/24 HR PATCH TD SCH (08:50)
--- NOTE | 2020-10-19 19:17 | IRU Plan of Care ---
Interdisciplinary Plan of Care - IP IRU INTERDISCIPLINARY PLAN: [facility] Inpatient Rehab Unit Plan of Care IRU Interdisciplinary Care Plan Start: 10/16/20 10:07 Freq: Admission then PRN Status: Active Protocol: Document 10/19/20 18:40 TH (Rec: 10/19/20 18:45 TH [id number]) Interdisciplinary Problem List Interdisciplinary Problem List Interdisciplinary Problem List Impaired Eating/Swallowing, Query Text:Answers will Trigger Problems Impaired Bathing/Grooming, and Outcomes on Worklist. Impaired Dressing,Impaired Mobility,Impaired Transfers, Pain Management,Knowledge Deficits,Discharge Concerns, Impaired Safety,Diabetes Education,Impaired Cardiovascular System IRU Interdisciplinary Care Plan Therapy Services Therapy Services Will Include: Physical Therapy,Occupational Query Text:Patient will be seen for a Therapy minimum of 3 hours of daily therapy 5 out of 7 days a week. Therapy intensity may be adjusted within a 7 consecutive day period to effectively serve the individual needs of the patient. Treatment Frequency/Intensity/Duration Treatment Frequency 5 days/week Treatment Intensity 3 hours/day Treatment Duration 7-10 days Problem Area: Eating/Swallowing Eating/Swallowing Outcomes Eating/Swallowing Interventions Problem Area: Bathing/Grooming Bathing/Grooming Outcomes Improve [place] w/ Grooming,Improve [place] w/ Bathing Bathing/Grooming Interventions ADL Training,Therapeutic Exercise,Therapeutic Activity, Balance Work,Activity Tolerance Work,Patient/ Caregiver Education Problem Area: Dressing Dressing Outcomes Improve [place] w/ UB Dressing,Improve [place] w/ LB Dressing Dressing Interventions ADL Training,Neuromuscular Re- Education,Therapeutic Exercise ,Balance Work,Modalities, Patient/Caregiver Education Problem Area: Mobility Mobility Outcomes Improve [place] w/ Bed Mobility,Improve [place] w/ Ambulation,Improve [place] w/ Stairs/Curb, Improve [place] w/ Wheelchair Mobility Interventions Therapeutic Exercise, Neuromuscular Re-Ed.,Activity Tolerance Work,Use of Assistive Devices,Patient/ Caregiver Education,Bed Mobility Work,Gait Training,W/ C Mobility Work Problem Area: Transfers Transfers Outcomes Improve [place] w/ Bed Transfers,Improve [place] w/ Toilet Transfers Transfers Interventions Transfer Training,Therapeutic Exercise,Neuromuscular Re- Education,Activity Tolerance Work,Modalities,Use of Assistive Devices,Patient/ Caregiver Education Problem Area: Bowel/Bladder Managment Bowel/Bladder Outcomes Bowel/Bladder Interventions Problem Area: Toileting Toileting Outcomes Improve [place] w/ Toileting Toileting Interventions ADL Training,Balance Work,Use of Assistive Devices,Patient/ Caregiver Education Problem Area: Nutrition Nutrition Outcomes Nutrition Interventions Problem Area: Comprehension Comprehension Outcomes Comprehension Interventions Problem Area: Expression Expression Outcomes Expression Interventions Problem Area: Problem Solving Problem Solving Outcomes Problem Solving Interventions Problem Area: Memory Memory Outcomes Memory Interventions Problem Area: Pain Management Pain Management Outcomes Pain Management Interventions Problem Area: Knowledge Deficits Knowledge Deficits Outcomes Knowledge Deficits Interventions Problem Area: Skin/Tissue Integrity Skin/Tissue Integrity Outcomes Exhibit Healing of Wound/ Incision Skin/Tissue Integrity Interventions Skin/Wound Care,Dressing Change Education,Positioning/ Turning Problem Area: Social Interaction Social Interaction Outcomes Social Interaction Interventions Problem Area: Adjustment to Disability Adjustment to Disability Outcomes Adjustment to Disability Interventions Problem Area: Discharge Concerns Discharge Concerns Outcomes Discharge w/ Necessary Equipment,Have Home Health/ Outpatient Services Discharge Concerns Interventions Problem Area: Community Reintegration Community Reintegration Outcomes Community Reintegration Interventions Problem Area: Home Management Home Management Outcomes Improve [place] w/ Home Management Home Management Interventions Money Management Tasks,Meal Preparation,Clothing Care, Activity Tolerance Work, Patient/Caregiver Education Problem Area: Safety Safety Outcomes Provide Safe Environment, Perform Selfcare Safely, Demonstrate Good Safety w/ Transfers/Mobility Safety Interventions Identify Fall Risk,[place] Pt. to Environment,Reduce Environmental Hazards,Neuro Check Assessment,Implement Mechanical Devices, i.e. Chair Alarm (Post Fall Update),Re- Educate Patient/Caregiver for Safety (Post Fall Update) Problem Area: Medication Education Medication Education Outcomes Medication Education Interventions Problem Area: Diabetes Education Diabetes Education Outcomes Demonstrate Knowledge of Resources Availlable in Diabetic Ed. Folder Diabetes Education Interventions Give Pt. Diabetes Education Folder,Discuss Pathophysiology of Diabetes Problem Area: Oxygenation Oxygenation Outcomes Oxygenation Interventions Problem Area: Cardiovascular Cardiovascular Outcomes Maintain or Improve Cardiovascular Status Cardiovascular Interventions Assess Vital Signs at least Every 4 hours Physician Only Medical Prognosis and Rehabilitation Potential (Completed by Physician) Good rehab potential, good medical prognosis This plan of care has been developed based on the findings from the pre- admission assessment, post admission physician evaluation, information gathered from the assessments from all therapy disciplines and other pertinent clinicians. The plan of care has been reviewed and discussed in collaboration with the interdisciplinary team. The plan of care will be reviewed and updated at least weekly.
[2020-10-19] MEDS: GABAPENTIN 300 MG CAP PO SCH (21:48)
[2020-10-19] MEDS: INSULIN GLARGINE 100 UNITS/ML SUB-Q SCH (21:56)
[2020-10-20] MEDS: ZOLPIDEM 5 MG TAB PO PRN ×2 (00:05→22:22)
[2020-10-20 06:46] LABS: Hematocrit 25.9 % (30.3-42.9); Mean Corpuscular HGB Conc 35 % (30-34); Mean Corpuscular Volume 87 fl (79-97); Platelet Count 701 K/mm3 (140-440); Red Blood Count 2.98 M/mm3 (3.65-5.03); Red Cell Distribution Width 14.1 % (13.2-15.2)
[2020-10-20] MEDS: oxyCODONE 5 MG TAB PO PRN ×2 (09:11→19:14)
[2020-10-20] MEDS: INSULIN GLARGINE 100 UNITS/ML SUB-Q SCH ×2 (09:11→22:25)
[2020-10-20] MEDS: ASPIRIN EC 81 MG TAB PO SCH (09:12)
[2020-10-20] MEDS: PANTOPRAZOLE 40 MG TAB PO SCH (09:13)
[2020-10-20] MEDS: APIXABAN 5 MG TAB PO SCH (09:13)
[2020-10-20] MEDS: NICOTINE 7 MG/24 HR PATCH TD SCH (09:13)
[2020-10-20] MEDS: INSULIN LISPRO 100 UNIT/ML SUB-Q SCH ×4 (09:22→22:26)
--- NOTE | 2020-10-20 10:12 | Progress Note ---
Subjective Date of service: 10/20/20 Principal diagnosis: Right BKA Interval history: 74-year-old female who presented to the ER on 10/04 with worsening right lower extremity wounds. Patient has longstanding history of peripheral vascular disease and has previously undergone endovascular interventions however the wounds were not healing. She was offered amputation but wanted to pursue limb salvage if at all possible. She was started on antibiotics for wound infection and after period of time and discussing with her family opted for a amputation. Patient does have a knee replacement in the right leg and the steps were taken to make sure that the amputation was below the level of the hardware. She had good popliteal pulse. Dr. Uday Mackay performed a right BKA on 10/11. Amputation was without complications. Patient did have ongoing blood loss and anemia and she was transfused 1 unit of packed red blood cells on 10/14. During a previous hospitalization, patient was placed on Eliquis for severe peripheral vascular disease along with antiplatelets. After the patient was medically stabilized they were transferred for further rehabilitation. All available medical records have been reviewed. Plan of care was discussed with patient. Approximately 45 minutes was invested and record review of patient's prior medical history here in the hospital. Also had prolonged discussion with the patient including approximately 25 minutes [id number] discussing her prognosis and future prosthesis. Patient is planning to move to [place] with her daughter in the near future. She and her significant other will move in with them and will likely need to have continued medical support there. Interval History: Patient is participating in therapy and making reasonable progress. Taking rest breaks as needed. +BM. Denies palpitations, dyspnea, cough, N/V, weakness, or joint pain. Is having postsurgical pain as well as onset of neuropathic pain. Denies overt phantom pain but still has phantom sensations. Blood pressure improved. Scheduled insulin dose with meals has not been given, will discontinue that and increase sliding scale insulin, apparently after speaking with nursing the patient is having glucose values in the 40s and 30s but this is not being and put into the computer. Nursing showed me one of the glucose monitors with a value in the 30s from this morning's glucose check. Right BKA: Continue to monitor for any signs of dehiscence or infection. Wound intact. Wound care has evaluated. Dressings should be changed every other day. Stump protector in place. Patient still having continued bleeding (sanguinous in nature) and has completely saturated her current dressing. I took down the dressing myself and requested nursing to redress. Will reconsult vascular surgery for evaluation, could be either due to Eliquis and aspirin use or pos sible small bleeder. Hypertension: Hypertension improved. Patient continues to not require medicat ions at this point. States that she was taking amlodipine 10 mg at home which is not in the medical record so far. No reports of hypotensive episodes with therapy noted in documentation. We will continue to monitor. At this point will avoid restarting antihypertensives as patient seems to be within a normal range. Diabetes: Poorly controlled overall. Undocumented in the medical record but co nfirmed with nursing and the patient that she is having large swings in the 200 and then in the 30 or 40 range. Patient uncertain of her home insulin type but does state that she takes 25 units at night. Also states that she infrequently has hypoglycemic episodes but does keep high sugar foods available for emergencies. Will split her dose of Lantus and have increased the sliding scale. Was able to contact the pharmacy that the patient states she uses yesterday and they note that she was taking Tresiba however she has not refilled that prescription or other prescriptions with them. Possibly that the patient has been noncompliant with medications for the last several months or also possi ble that she has switched to a different pharmacy and did not realize it. We will continue to monitor current diabetes regimen and adjust as needed. PVD: Continue supportive care monitor. Can patient continues on aspirin and Eliquis. Patient currently on dosage of 5 mg twice daily on Eliquis versus 2.5 mg previously as ordered on acute care side. We will request vascular surgeon to review this given the continued issues with bleeding.. Pain: Postoperative pain fairly well controlled on current dosing of opioids. Tolerating starting dose of gabapentin. We will slowly titrate as needed. Anemia: We will continue to monitor and transfuse as needed. Hemoglobin stable despite continued saturation of dressings Constipation: Continue bowel medications and monitor for improvement. Patient is having intermittent bowel movements. Encouraging her to use toilet versus bedpan. Insomnia: Continue Ambien as needed. Patient previously took this and this is not my first choice of medication for someone her age. Improved last night with a later dose in conjunction with gabapentin. All records, vitals, labs and medications were reviewed. No other issues per patient, nursing or therapy. Objective - Exam Narrative Exam: MUSCULOSKELETAL SPECIALTY EXAM CONSTITUTIONAL: Well developed, well nourished, appropriately groomed, thin RESPIRATORY: Clear to auscultation bilaterally, no increased work of breathing CARDIOVASCULAR: Regular Rate/ Rhythm, no swelling, edema or tenderness in BUE or BLE. All extremities warm. GI: + bowel sounds, soft, NTTP, nondistended. INTEGUMENTARY: Normal, no lesion, rash, masses or bruising noted in extremities. Right BKA wound with increased sanguinous drainage, blister has ruptured on inferior medial aspect dressing taken down today. MUSCULOSKELETAL: Right BKA, BUE and BLE normal without defect, crepitus, subluxation, effusion, arthritic changes or TTP. BUE 4+/5, good ROM, with normal tone. LLE 4+/5 good ROM, with normal tone, RLE with reasonable range of motion and 4- /5, stump protector in place NEURO: Sensation intact in all extremities. No tremor noted in 4 extremities. POSTURE and GAIT: Sitting posture good. PSYCH: Alert, oriented x3, affect appears normal . Insight appears intact. - Constitutional Vitals: Vital Signs - 12hr 10/20/20 10/20/20 04:05 07:45 Temperature 97.6 F 97.8 F Pulse Rate 76 84 Respiratory 16 16 Rate Blood Pressure 129/62 119/52 O2 Sat by Pulse 98 100 Oximetry - Allied health notes Allied health notes reviewed: nursing, PT, OT FIMS assessment as documented by PT/OT/ST: Grooming Patient cleans teeth/dentures: Yes Patient duckworth/brushes hair: Yes Patient washes, rinses and Yes dries face: Patient washes, rinses and Yes dries hands: Patient performs (no make-up/ / (100%) shaving): Grooming FIM Score 6. Modified [place] (Needs equipment/device . Extra time.) Toileting Toileting Device Commode over Toilet,Grab Bar Patient able to: Adjust clothes before,Clean self,Adjust clothes after Patient able to perform: 3/3 (100%) Toileting FIM Score 5. Supv./Set-Up (Needs stand-by, set-up, applying prosth/orth.) Social interaction/Memory/Problem solving Social Interaction FIM Score 6. Mod. [place] (Mostly appropriate. May need meds. No supv.) Memory FIM Score 6. Modified [place](Mild difficulty remembering people/routines.) Problem Solving FIM Score 6. Mod. [place] (Mild difficulty or needs more time w/ complex.) Transfers Mode of Locomotion: Wheelchair Bed/Chair/Wheelchair Transfers 5. Supervision (Needs supv. or set-up for FIM Score sliding board, foot rests.) Eating Eating FIM Score 6. Modified [place] (Special consistency or uses device.) Dressing-Upper body Patient retrieves clothing Yes items: Upper Body Dressing FIM Score 6. Modified [place] (Needs equipment, velcro or pros./orth.) Dressing-lower body Patient retrieves clothing Yes items: Patient applies/removes LE Yes prosthesis or orthosis: Lower Body Dressing FIM Score 5. Supv./Set-Up ([place] sets out clothes or applies pros./orth.) - Labs CBC & Chem 7: 10/20/20 06:31 10/20/20 06:31 Labs: Laboratory Results - last 72 hr 10/17/20 10/17/20 10/17/20 07:22 11:38 15:56 WBC RBC Hgb Hct MCV MCH MCHC RDW Plt Count Sodium Potassium Chloride Carbon Dioxide Anion Gap BUN Creatinine Estimated GFR BUN/Creatinine Ratio Glucose POC Glucose 79 205 H 132 H Calcium 10/17/20 10/18/20 10/18/20 21:08 07:33 11:21 WBC RBC Hgb Hct MCV MCH MCHC RDW Plt Count Sodium Potassium Chloride Carbon Dioxide Anion Gap BUN Creatinine Estimated GFR BUN/Creatinine Ratio Glucose POC Glucose 176 H 122 H 253 H Calcium 10/18/20 10/18/20 10/19/20 16:37 21:34 06:35 WBC 9.3 RBC 3.02 L Hgb 8.8 L Hct 26.4 L MCV 87 MCH 29 MCHC 33 RDW 14.4 Plt Count 720 H Sodium Potassium Chloride Carbon Dioxide Anion Gap BUN Creatinine Estimated GFR BUN/Creatinine Ratio Glucose POC Glucose 176 H 162 H Calcium 10/19/20 10/19/20 10/19/20 06:35 07:15 11:26 WBC RBC Hgb Hct MCV MCH MCHC RDW Plt Count Sodium 133 L Potassium 4.2 Chloride 98.9 Carbon Dioxide 23 Anion Gap 15 BUN 23 H Creatinine 1.1 Estimated GFR 49 BUN/Creatinine Ratio 21 Glucose 42 L POC Glucose 39 L 222 H Calcium 8.6 10/19/20 10/19/20 10/20/20 16:11 21:10 06:31 WBC 7.8 RBC 2.98 L Hgb 9.0 L Hct 25.9 L MCV 87 MCH 30 MCHC 35 H RDW 14.1 Plt Count 701 H Sodium Potassium Chloride Carbon Dioxide Anion Gap BUN Creatinine Estimated GFR BUN/Creatinine Ratio Glucose POC Glucose 104 165 H Calcium 10/20/20 06:31 WBC RBC Hgb Hct MCV MCH MCHC RDW Plt Count Sodium 134 L Potassium 4.7 Chloride 97.0 L Carbon Dioxide 28 Anion Gap 14 BUN 24 H Creatinine 1.0 Estimated GFR 54 BUN/Creatinine Ratio 24 Glucose 125 H POC Glucose Calcium 9.0 Assessment and Plan Right BKA: Continue to utilize right limb protector. Continue therapy to improve patient's overall mobility and self-care. Monitor wound for any signs of worsening, infection, dehiscence. Wound care has been consulted. Notify vascular surgery for any issues with wound healing. Have discussed working with the prosthetists with the patient and will work on getting her referral for further fitting as she progresses and when the time is right/approved by surgeon. Will reconsult surgeon for continued bleeding. Phantom sensation: Continue desensitization and monitor for any signs of phantom pain. If patient does start having issues with phantom pain we can start further medications as needed. Discussion had with patient about phantom sensation and best ways to control it. We will start gabapentin for neuropathic pain Postoperative pain: Patient was taking IV pain meds up until day of discharge and admittance to acute rehab. All medications have been adjusted to oral doses of oxycodone. Continue to monitor patient's pain and adjust medications as needed with the goal of dose reduction as we move further from the surgery. Anemia: Patient previously transfuse 1 unit PRBCs on acute care side. Monitor hemoglobin on a regular basis and transfuse as needed. Primarily acute blood loss anemia. May check iron, folate and B12 if hemoglobin does not significantly improve. COPD: Continue albuterol. Patient continues to smoke and has been counseled on smoking cessation. Monitor O2 saturations and adjust medications as needed Hypertension: Blood pressure has improved without medication. We will continue to monitor and start medications if needed. As needed hydralazine has been ordered. Patient states she was previously taking amlodipine 10 mg daily. Diabetes, poorly controlled: Lantus adjusted to twice daily dosing and sliding scale increased. Patient has been having drops in glucose levels that are not in the computer record. Carb controlled diet. Monitor glucose checks and adjust as needed. PAD/PVD: Continue Eliquis and antiplatelets. Follow-up with vascular surgery as outpatient or as needed in-house. ADL dysfunction: OT will work on improving ability to perform ADLs (including assistive devices) to increase independence and decrease caregiver burden and improve functional transfers and mobility training. Difficulty walking: PT will work on gait training and proper use of assistive devices and advance as appropriate to use of stairs and outside ambulation on uneven surfaces. Unsteadiness on feet: PT will work on improving static and dynamic sitting and standing balance as well as proper use of assistive devices to decrease risk of falls. Abnormality of gait: PT will work to improve safety and efficiency of gait through neuromotor training and gait training along with instruction on proper use of assistive devices. Muscle weakness: PT & OT will work on strengthening exercises to improve functional strength including mixture of closed and open kinetic chain exercises. Debility: PT & OT will work on improving overall functional status to improve participation with ADLs, mobility and social involvement. Fatigue: PT & OT will work on improving endurance through aerobic exercises and therapeutic activity while monitoring patients tolerance for activity and vital signs as needed. DVT ppx: Eliquis Pain: Continue physical modalities in therapy and pain medications as needed to achieve functional pain control. Sleep: Monitor and address as needed. Ambien as needed Bowel: Monitor and address as needed. As needed medications available Appetite: Monitor and address as needed. Discharge planning: Pending therapy progress and care plan meeting. Will continue discussion with therapy team, SW, patient and family. Patient has rolling walker and shower chair at home. Will need to discharge with a wheelc hair. Restrictions/ Precautions: Falls, wound WB status: NWB on RLE Functional Hx: ADLs: Independent Cognition: Independent Mobility: No AD Barriers to Discharge: Decreased mobility and ability to perform self care, balance deficits, weakness Estimated Length of Stay: 1014 days Discharge Destination: Home with significant other in a trailer with 3 steps
[2020-10-20] MEDS: GABAPENTIN 300 MG CAP PO SCH (22:22)
[2020-10-20] MEDS: APIXABAN 2.5 MG TAB PO SCH (22:25)
[2020-10-21] MEDS: INSULIN LISPRO 100 UNIT/ML SUB-Q SCH ×4 (07:08→22:49)
[2020-10-21 07:43] LABS: Calcium 8.8 mg/dL (8.4-10.2)
[2020-10-21 07:55] LABS: Hematocrit 26.6 % (30.3-42.9); Hemoglobin 9.1 gm/dl (10.1-14.3); Mean Corpuscular HGB Conc 34 % (30-34); Mean Corpuscular Volume 87 fl (79-97); Platelet Count 739 K/mm3 (140-440); Red Blood Count 3.06 M/mm3 (3.65-5.03); Red Cell Distribution Width 14.1 % (13.2-15.2)
[2020-10-21] MEDS: INSULIN GLARGINE 100 UNITS/ML SUB-Q SCH ×2 (09:54→21:22)
[2020-10-21] MEDS: oxyCODONE 5 MG TAB PO PRN ×2 (09:55→21:22)
[2020-10-21] MEDS: PANTOPRAZOLE 40 MG TAB PO SCH (09:56)
[2020-10-21] MEDS: ASPIRIN EC 81 MG TAB PO SCH (09:56)
[2020-10-21] MEDS: APIXABAN 2.5 MG TAB PO SCH ×2 (09:58→21:17)
--- NOTE | 2020-10-21 09:58 | Progress Note ---
Subjective Date of service: 10/21/20 Principal diagnosis: Right BKA Interval history: 74-year-old female who presented to the ER on 10/04 with worsening right lower extremity wounds. Patient has longstanding history of peripheral vascular disease and has previously undergone endovascular interventions however the wounds were not healing. She was offered amputation but wanted to pursue limb salvage if at all possible. She was started on antibiotics for wound infection and after period of time and discussing with her family opted for a amputation. Patient does have a knee replacement in the right leg and the steps were taken to make sure that the amputation was below the level of the hardware. She had good popliteal pulse. Dr. Uday Mackay performed a right BKA on 10/11. Amputation was without complications. Patient did have ongoing blood loss and anemia and she was transfused 1 unit of packed red blood cells on 10/14. During a previous hospitalization, patient was placed on Eliquis for severe peripheral vascular disease along with antiplatelets. After the patient was medically stabilized they were transferred for further rehabilitation. All available medical records have been reviewed. Plan of care was discussed with patient. Approximately 45 minutes was invested and record review of patient's prior medical history here in the hospital. Also had prolonged discussion with the patient including approximately 25 minutes [id number] discussing her prognosis and future prosthesis. Patient is planning to move to [place] with her daughter in the near future. She and her significant other will move in with them and will likely need to have continued medical support there. Interval History: Patient is participating in therapy and making reasonable progress. Taking rest breaks as needed. +BM. Denies palpitations, dyspnea, cough, N/V, weakness, or joint pain. Right BKA: Continue to monitor for any signs of dehiscence or infection. Wound intact. Wound care has evaluated. Dressings should be changed every other day. Stump protector in place. Consulted vascular surgery yesterday for reevaluation of surgical wound. Decreased Eliquis to 2.5 mg twice daily which was the patient's previous dosing prior to surgery. Bleeding has slowed down slightly as the bandage is not saturated today. We will continue to monitor for further resolution. Pain fairly well controlled with current medications. Hypertension: Hypertension improved without any reports of hypotensive episodes. Patient continues to not require medications at this point. States that she was taking amlodipine 10 mg at home. Diabetes: Poorly controlled overall. Doing slightly better on split dosing of Lantus. No more reports of hypoglycemic episodes, will look to increase dose in the next day or 2 to improve tighter control of glucose. We will continue to monitor current diabetes regimen and adjust as needed. PVD: Continue supportive care monitor. Patient continues on aspirin and Eliquis. Patient's Eliquis dose reverted back to 2.5 mg twice daily which she was taking prior to this hospitalization. Vascular surgery may look to increase the dose based on their clinical picture but with the continued bleeding from her surgical wound we will hold her at the lower dose currently. Pain: Postoperative pain fairly well controlled on current dosing of opioids. Tolerating starting dose of gabapentin. We will slowly titrate as needed. Anemia: We will continue to monitor and transfuse as needed. Hemoglobin stable despite continued saturation of dressings Constipation: Continue bowel medications and monitor for improvement. Patient is having intermittent bowel movements. Encouraging her to use toilet versus bedpan. Insomnia: Continue Ambien as needed. Patient previously took this and this is not my first choice of medication for someone her age. All records, vitals, labs and medications were reviewed. No other issues per patient, nursing or therapy. Objective - Exam Narrative Exam: MUSCULOSKELETAL SPECIALTY EXAM CONSTITUTIONAL: Well developed, well nourished, appropriately groomed, thin RESPIRATORY: Clear to auscultation bilaterally, no increased work of breathing CARDIOVASCULAR: Regular Rate/ Rhythm, no swelling, edema or tenderness in BUE or BLE. All extremities warm. GI: + bowel sounds, soft, NTTP, nondistended. INTEGUMENTARY: Normal, no lesion, rash, masses or bruising noted in extremities. Right BKA wound with intact and dry dressing this morning. Blister has ruptured on inferior medial aspect, dressing not taken down today. MUSCULOSKELETAL: Right BKA, BUE and BLE normal without defect, crepitus, subluxation, effusion, arthritic changes or TTP. BUE 4+/5, good ROM, with normal tone. LLE 4+/5 good ROM, with normal tone, RLE with reasonable range of motion and 4- /5, stump protector in place. Appropriate TTP at surgical area. NEURO: Sensation intact in all extremities. No tremor noted in 4 extremities. POSTURE and GAIT: Sitting posture good. PSYCH: Alert, oriented x3, affect appears normal . Insight appears intact. - Constitutional Vitals: Vital Signs - 12hr 06/03/21 06/04/21 06/04/21 22:00 05:09 07:19 Temperature 97.6 F 98.0 F Pulse Rate 79 80 Respiratory 16 18 Rate Respiratory 17 Rate [Right Residual limb.] Respiratory 17 Rate [Right Residual limb] Blood Pressure 102/45 Blood Pressure 121/60 [Left] O2 Sat by Pulse 96 100 Oximetry - Allied health notes Allied health notes reviewed: nursing, PT, OT FIMS assessment as documented by PT/OT/ST: Grooming Patient cleans teeth/dentures: Yes Patient duckworth/brushes hair: Yes Patient washes, rinses and Yes dries face: Patient washes, rinses and Yes dries hands: Patient performs (no make-up/ / (100%) shaving): Grooming FIM Score 5. Supervision ([place] applies toothpaste or opens containers.) Toileting Toileting Device Commode over Toilet Patient able to: Adjust clothes before,Clean self,Adjust clothes after Patient able to perform: 3/3 (100%) Toileting FIM Score 5. Supv./Set-Up (Needs stand-by, set-up, applying prosth/orth.) Social interaction/Memory/Problem solving Social Interaction FIM Score 6. Mod. [place] (Mostly appropriate. May need meds. No supv.) Memory FIM Score 6. Modified [place](Mild difficulty remembering people/routines.) Problem Solving FIM Score 6. Mod. [place] (Mild difficulty or needs more time w/ complex.) Transfers Mode of Locomotion: Wheelchair Bed/Chair/Wheelchair Transfers 5. Supervision (Needs supv. or set-up for FIM Score sliding board, foot rests.) Eating Eating FIM Score 5. Supervision/Set-Up (Needs help w/ containers, cutting meat, etc.) Dressing-Upper body Patient retrieves clothing Yes items: Upper Body Dressing FIM Score 5. Supv./Set-Up ([place] sets out clothes or applies pros./orth.) Dressing-lower body Patient retrieves clothing Yes items: Patient applies/removes LE Yes prosthesis or orthosis: Lower Body Dressing FIM Score 5. Supv./Set-Up ([place] sets out clothes or applies pros./orth.) - Labs CBC & Chem 7: 10/21/20 06:59 06/04/21 06:59 Labs: Laboratory Results - last 72 hr 10/18/20 10/18/20 10/18/20 11:21 16:37 21:34 WBC RBC Hgb Hct MCV MCH MCHC RDW Plt Count Sodium Potassium Chloride Carbon Dioxide Anion Gap BUN Creatinine Estimated GFR BUN/Creatinine Ratio Glucose POC Glucose 253 H 176 H 162 H Calcium 10/19/20 10/19/20 10/19/20 06:35 06:35 07:15 WBC 9.3 RBC 3.02 L Hgb 8.8 L Hct 26.4 L MCV 87 MCH 29 MCHC 33 RDW 14.4 Plt Count 720 H Sodium 133 L Potassium 4.2 Chloride 98.9 Carbon Dioxide 23 Anion Gap 15 BUN 23 H Creatinine 1.1 Estimated GFR 49 BUN/Creatinine Ratio 21 Glucose 42 L POC Glucose 39 L Calcium 8.6 10/19/20 10/19/20 10/19/20 11:26 16:11 21:10 WBC RBC Hgb Hct MCV MCH MCHC RDW Plt Count Sodium Potassium Chloride Carbon Dioxide Anion Gap BUN Creatinine Estimated GFR BUN/Creatinine Ratio Glucose POC Glucose 222 H 104 165 H Calcium 10/20/20 10/20/20 10/20/20 06:31 06:31 07:48 WBC 7.8 RBC 2.98 L Hgb 9.0 L Hct 25.9 L MCV 87 MCH 30 MCHC 35 H RDW 14.1 Plt Count 701 H Sodium 134 L Potassium 4.7 Chloride 97.0 L Carbon Dioxide 28 Anion Gap 14 BUN 24 H Creatinine 1.0 Estimated GFR 54 BUN/Creatinine Ratio 24 Glucose 125 H POC Glucose 121 H Calcium 9.0 10/20/20 10/20/20 10/20/20 11:55 16:19 21:00 WBC RBC Hgb Hct MCV MCH MCHC RDW Plt Count Sodium Potassium Chloride Carbon Dioxide Anion Gap BUN Creatinine Estimated GFR BUN/Creatinine Ratio Glucose POC Glucose 201 H 130 H 201 H Calcium 10/21/20 10/21/20 10/21/20 06:59 06:59 07:18 WBC 7.9 RBC 3.06 L Hgb 9.1 L Hct 26.6 L MCV 87 MCH 30 MCHC 34 RDW 14.1 Plt Count 739 H Sodium 134 L Potassium 5.0 Chloride 98.0 Carbon Dioxide 25 Anion Gap 16 BUN 24 H Creatinine 1.2 Estimated GFR 44 BUN/Creatinine Ratio 20 Glucose 80 POC Glucose 76 Calcium 8.8 Assessment and Plan Right BKA: Continue to utilize right limb protector. Continue therapy to improve patient's overall mobility and self-care. Monitor wound for any signs of worsening, infection, dehiscence. Wound care has been consulted. Notify vascular surgery for any issues with wound healing. Have discussed working with the prosthetists with the patient and will work on getting her referral for further fitting as she progresses and when the time is right/approved by surgeon. Surgeon re-consulted for continued bleeding. Phantom sensation: Continue desensitization and monitor for any signs of phantom pain. If patient does start having issues with phantom pain we can start further medications as needed. Discussion had with patient about phantom sensation and best ways to control it. We will start gabapentin for neuropathic pain she is experiencing in the residual limb Postoperative pain: All medications have been adjusted to oral doses of oxycodone. Continue to monitor patient's pain and adjust medications as needed with the goal of dose reduction as we move further from the surgery. Anemia: Patient previously transfuse 1 unit PRBCs on acute care side. Monitor hemoglobin on a regular basis and transfuse as needed. Primarily acute blood loss anemia. May check iron, folate and B12 if hemoglobin does not s ignificantly improve. COPD: Continue albuterol. Patient continues to smoke and has been counseled on smoking cessation. Monitor O2 saturations and adjust medications as needed Hypertension: Blood pressure has improved without medication. We will continue to monitor and start medications if needed. As needed hydralazine has been ordered. Patient states she was previously taking amlodipine 10 mg daily. Diabetes, poorly controlled: Lantus adjusted to twice daily dosing and sliding scale increased. Patient has been having drops in glucose levels that are not in the computer record. Carb controlled diet. Monitor glucose checks and adjust as needed. PAD/PVD: Continue Eliquis and antiplatelets. Follow-up with vascular surgery as outpatient or as needed in-house. ADL dysfunction: OT will work on improving ability to perform ADLs (including assistive devices) to increase independence and decrease caregiver burden and improve functional transfers and mobility training. Difficulty walking: PT will work on gait training and proper use of assistive devices and advance as appropriate to use of stairs and outside ambulation on uneven surfaces. Unsteadiness on feet: PT will work on improving static and dynamic sitting and standing balance as well as proper use of assistive devices to decrease risk of falls. Abnormality of gait: PT will work to improve safety and efficiency of gait through neuromotor training and gait training along with instruction on proper use of assistive devices. Muscle weakness: PT & OT will work on strengthening exercises to improve functional strength including mixture of closed and open kinetic chain exercises. Debility: PT & OT will work on improving overall functional status to improve participation with ADLs, mobility and social involvement. Fatigue: PT & OT will work on improving endurance through aerobic exercises and therapeutic activity while monitoring patients tolerance for activity and vital signs as needed. DVT ppx: Eliquis Pain: Continue physical modalities in therapy and pain medications as needed to achieve functional pain control. Sleep: Monitor and address as needed. Ambien as needed Bowel: Monitor and address as needed. As needed medications available Appetite: Monitor and address as needed. Discharge planning: Pending therapy progress and care plan meeting. Will continue discussion with therapy team, SW, patient and family. Patient has rolling walker and shower chair at home. Will need to discharge with a wheelchair. Restrictions/ Precautions: Falls, wound WB status: NWB on RLE Functional Hx: ADLs: Independent Cognition: Independent Mobility: No AD Barriers to Discharge: Decreased mobility and ability to perform self care, balance deficits, weakness Estimated Length of Stay: 1014 days Discharge Destination: Home with significant other in a trailer with 3 steps
[2020-10-21] MEDS: NICOTINE 7 MG/24 HR PATCH TD SCH (10:11)
--- NOTE | 2020-10-21 11:44 | Progress Note ---
Assessment and Plan The patient has superficial blistering of the stump however the stump is well perfused and the areas will heal. There was reported serosanguinous drainage from the incision however there is no evidence of active bleeding and the patient's hgb/hct have remained stable. The patient questioned the correct dose of her Eliquis. She should be on Eliquis 2.5 mg p.o. BID along with Aspirin 81 mg p.o. daily. She should follow up with me, in the office 2 weeks after her discharge from Rehab. Subjective Date of service: 10/21/20 Principal diagnosis: Right BKA Interval history: Patient states she has occasional pain in her Right BKA stump, worse with Physical Therapy, however it is apply to be controlled with oral pain medication. She has no additional complaints. Objective - Constitutional Vitals: Vital Signs - 12hr 10/21/20 10/21/20 05:09 07:19 Temperature 97.6 F 98.0 F Pulse Rate 79 80 Respiratory 16 18 Rate Blood Pressure 102/45 Blood Pressure 121/60 [Left] O2 Sat by Pulse 96 100 Oximetry General appearance: Present: no acute distress - Respiratory Respiratory effort: normal - Cardiovascular Rhythm: regular Extremities: no ischemia, normal temperature (right stump warm and well perfused), abnormal (Right BKA stump with superficial small blisters to the anterior surface and larger superfial blister on posterior flap, incision is intact without significant drainage at this time) - Labs CBC & Chem 7: 10/21/20 06:59 10/21/20 06:59 Labs: Abnormal lab results 10/20/20 10/20/20 10/20/20 Range/Units 11:55 16:19 21:00 RBC (3.65-5.03) M/mm3 Hgb (10.1-14.3) gm/dl Hct (30.3-42.9) % Plt Count (140-440) K/mm3 Sodium (137-145) mmol/L BUN (7-17) mg/dL POC Glucose 201 H 130 H 201 H (70-105) mg/dL 10/21/20 10/21/20 Range/Units 06:59 06:59 RBC 3.06 L (3.65-5.03) M/mm3 Hgb 9.1 L (10.1-14.3) gm/dl Hct 26.6 L (30.3-42.9) % Plt Count 739 H (140-440) K/mm3 Sodium 134 L (137-145) mmol/L BUN 24 H (7-17) mg/dL POC Glucose (70-105) mg/dL Medications & Allergies - Medications Allergies/Adverse Reactions: Allergies Penicillins Allergy (Verified 10/04/20 10:45) Unknown sutures Adverse Reaction (Uncoded 10/11/20 11:39) Swelling Home Medications: Home Medications Medication Instructions Recorded Confirmed Last Taken Type Lispro Insulin [HumaLOG] See Protocol SQ ACHS 09/13/17 10/19/20 Unknown History Pantoprazole [Protonix TAB] 40 mg PO DAILY #7 tablet 06/11/18 10/19/20 10/16/20 08:00 Rx Zolpidem [Ambien] 5 mg PO QHS PRN #5 tablet 06/11/18 10/19/20 Unknown Rx Aspirin EC [Halfprin EC] 81 mg PO QDAY #30 tablet 08/09/20 10/19/20 10/16/20 09:00 Rx Insulin NPH/Regular [NovoLIN 70/30] 25 unit SUB-Q BID 30 Days units 08/09/20 10/19/20 10/15/20 22:00 Rx cilostazoL [Pletal] 100 mg PO BID #60 tablet 08/09/20 10/19/20 10/16/20 09:00 Rx Apixaban [Eliquis] 5 mg PO Q12HR #60 tablet 10/15/20 10/19/20 10/16/20 10:00 Rx Nicotine [Habitrol] 7 mg TD QDAY #1 patch 10/15/20 10/19/20 10/16/20 09:00 Rx oxyCODONE /ACETAMINOPHEN [Percocet 2 tab PO Q4H PRN tablet 10/15/20 10/19/20 Unknown Rx 5/325 mg] Active Medications: Generic Name Dose Route Start Last Admin Trade Name Freq PRN Reason Stop Dose Admin Acetaminophen 650 mg 10/16/20 12:40 Acetaminophen 325 Mg Tab PO Q6H PRN Non Cardiac Pain or Temp>100.5 Albuterol 2.5 mg 10/16/20 12:40 Albuterol 2.5 Mg/3 Ml Nebu IH Q4HRT PRN Shortness Of Breath Apixaban 2.5 mg 10/20/20 22:00 10/21/20 09:58 Apixaban 2.5 Mg Tab PO 2.5 mg Q12HR MARGARET Administration Protocol Aspirin 81 mg 10/17/20 08:00 10/21/20 09:56 Aspirin Ec 81 Mg Tab PO 81 mg 0800 MARGARET Administration Dextrose 50 ml 10/16/20 12:33 Dextrose 50% In Water (25gm) 50 Ml Syringe IV Q30MIN PRN Hypoglycemia Protocol Gabapentin 300 mg 10/18/20 21:00 10/20/20 22:22 Gabapentin 300 Mg Cap PO 300 mg QHS MARGARET Administration Hydralazine HCl 10 mg 10/16/20 12:40 Hydralazine 20 Mg/1 Ml Inj IV Q4HR PRN Hypertension Insulin Glargine 10 units 10/19/20 21:00 10/20/20 22:25 Insulin Glargine 100 Units/Ml SUB-Q 10 units QHS MARGARET Administration Insulin Glargine 10 units 10/20/20 08:00 10/21/20 09:54 Insulin Glargine 100 Units/Ml SUB-Q 10 units QAMDIAB MARGARET Administration Insulin Human Lispro 0 unit 10/16/20 16:30 10/20/20 22:26 Insulin Lispro 100 Unit/Ml SUB-Q 4 unit ACHS MARGARET Administration Protocol Nicotine 7 mg 10/17/20 08:00 10/21/20 10:11 Nicotine 7 Mg/24 Hr Patch TD 7 mg 0800 MARGARET Administration Ondansetron HCl 4 mg 10/16/20 12:40 Ondansetron 4 Mg Odt Tab PO Q8H PRN Nausea And Vomiting Oxycodone HCl 5 mg 10/16/20 12:41 10/19/20 21:50 Oxycodone 5 Mg Tab PO 5 mg Q4H PRN Administration Pain, Moderate (4-6) Oxycodone HCl 10 mg 10/16/20 12:41 10/21/20 09:55 Oxycodone 5 Mg Tab PO 10 mg Q4H PRN Administration Pain , Severe (7-10) Pantoprazole Sodium 40 mg 10/17/20 07:30 10/21/20 09:56 Pantoprazole 40 Mg Tab PO 40 mg QDAC MARGARET Administration Polyethylene Glycol 17 gm 10/16/20 12:40 10/19/20 12:19 Polyethylene Glycol 3350 17 Gm Powder PO 17 gm QDAY PRN Administration Constipation Zolpidem Tartrate 5 mg 10/16/20 21:00 10/20/20 22:22 Zolpidem 5 Mg Tab PO 5 mg QHS PRN Administration Sleep
[2020-10-21] MEDS: GABAPENTIN 300 MG CAP PO SCH (21:17)
[2020-10-21] MEDS: ZOLPIDEM 5 MG TAB PO PRN (21:18)
[2020-10-22] MEDS: oxyCODONE 5 MG TAB PO PRN ×2 (08:26→22:02)
[2020-10-22] MEDS: NICOTINE 7 MG/24 HR PATCH TD SCH (08:26)
[2020-10-22] MEDS: APIXABAN 2.5 MG TAB PO SCH ×3 (08:26→22:00)
[2020-10-22] MEDS: INSULIN GLARGINE 100 UNITS/ML SUB-Q SCH ×2 (08:26→21:59)
[2020-10-22] MEDS: ASPIRIN EC 81 MG TAB PO SCH (08:27)
[2020-10-22] MEDS: INSULIN LISPRO 100 UNIT/ML SUB-Q SCH ×4 (08:27→22:01)
[2020-10-22] MEDS: PANTOPRAZOLE 40 MG TAB PO SCH (08:27)
--- NOTE | 2020-10-22 09:48 | Progress Note ---
Subjective Date of service: 10/22/20 Principal diagnosis: Right BKA Interval history: 74-year-old female who presented to the ER on 10/04 with worsening right lower extremity wounds. Patient has longstanding history of peripheral vascular disease and has previously undergone endovascular interventions however the wounds were not healing. She was offered amputation but wanted to pursue limb salvage if at all possible. She was started on antibiotics for wound infection and after period of time and discussing with her family opted for a amputation. Patient does have a knee replacement in the right leg and the steps were taken to make sure that the amputation was below the level of the hardware. She had good popliteal pulse. Dr. Uday Mackay performed a right BKA on 10/11. Amputation was without complications. Patient did have ongoing blood loss and anemia and she was transfused 1 unit of packed red blood cells on 10/14. During a previous hospitalization, patient was placed on Eliquis for severe peripheral vascular disease along with antiplatelets. After the patient was medically stabilized they were transferred for further rehabilitation. All available medical records have been reviewed. Plan of care was discussed with patient. Approximately 45 minutes was invested and record review of patient's prior medical history here in the hospital. Also had prolonged discussion with the patient including approximately 25 minutes [id number] discussing her prognosis and future prosthesis. Patient is planning to move to [place] with her daughter in the near future. She and her significant other will move in with them and will likely need to have continued medical support there. Interval History: Patient is participating in therapy and making reasonable progress. Taking rest breaks as needed. +BM. Denies palpitations, dyspnea, cough, N/V, weakness, or joint pain. Right BKA: Continue to monitor for any signs of dehiscence or infection. Wound intact. Wound care has evaluated. Dressings should be changed every other day. Stump protector in place. Consulted vascular surgery yesterday for reevaluation of surgical wound, appreciate their assistance. Decreased Eliquis to 2.5 mg twice daily which was the patient's previous dosing prior to surgery. Bleeding seems to have stopped now, on taking down the dressing today, dressing has some drainage on it but is not saturated as it was before, no active signs of bleeding noted as with last 2 dressing changes. We will continue to monitor for further resolution. Pain fairly well controlled with current medications. Hypertension: Hypertension improved without any reports of hypotensive episodes. Patient continues to not require medications at this point. States that she was taking amlodipine 10 mg at home. Diabetes: Poorly controlled overall. Doing slightly better on split dosing of Lantus but still showing some signs of elevation, will increase dosing. We will continue to monitor current diabetes regimen and adjust as needed. PVD: Continue supportive care monitor. Patient continues on aspirin and Eliquis. Patient's Eliquis dose reverted back to 2.5 mg twice daily which she was taking prior to this hospitalization. Will need to follow-up with vascular surgery at discharge Pain: Postoperative pain fairly well controlled on current dosing of opioids. Tolerating starting dose of gabapentin. We will slowly titrate as needed. Anemia: We will continue to monitor and transfuse as needed. Hemoglobin stable and bleeding has stopped. Will recheck labs on Saturday. Constipation: Continue bowel medications and monitor for improvement. Patient is having intermittent bowel movements. Encouraging her to use toilet versus bedpan. Insomnia: Continue Ambien as needed. Patient previously took this and this is not my first choice of medication for someone her age. All records, vitals, labs and medications were reviewed. No other issues per patient, nursing or therapy. Objective - Exam Narrative Exam: MUSCULOSKELETAL SPECIALTY EXAM CONSTITUTIONAL: Well developed, well nourished, appropriately groomed, thin RESPIRATORY: Clear to auscultation bilaterally, no increased work of breathing CARDIOVASCULAR: Regular Rate/ Rhythm, no swelling, edema or tenderness in BUE or BLE. All extremities warm. GI: + bowel sounds, soft, NTTP, nondistended. INTEGUMENTARY: Normal, no lesion, rash, masses or bruising noted in extremities. Right BKA wound with intact and dry dressing this morning, current dressing from 10/20 was taken down and noted to have slight drainage on the bandage but no active signs of ongoing bleeding as before. Blister has ruptured on inferior medial aspect. MUSCULOSKELETAL: Right BKA, BUE and BLE normal without defect, crepitus, subluxation, effusion, arthritic changes or TTP. BUE 4+/5, good ROM, with normal tone. LLE 4+/5 good ROM, with normal tone, RLE with reasonable range of motion and 4- /5, stump protector in place. Appropriate TTP at surgical area. NEURO: Sensation intact in all extremities. No tremor noted in 4 extremities. POSTURE and GAIT: Sitting posture good. PSYCH: Alert, oriented x3, affect appears normal . Insight appears intact. - Constitutional Vitals: Vital Signs - 12hr 10/21/20 10/22/20 10/22/20 22:22 05:01 07:54 Temperature 97.9 F 98.1 F Pulse Rate 79 81 Respiratory 17 16 19 Rate Blood Pressure 137/58 Blood Pressure 114/51 [Left] O2 Sat by Pulse 96 99 Oximetry - Allied health notes Allied health notes reviewed: nursing, PT, OT FIMS assessment as documented by PT/OT/ST: Grooming Patient cleans teeth/dentures: Yes Patient duckworth/brushes hair: Yes Patient washes, rinses and Yes dries face: Patient washes, rinses and Yes dries hands: Patient performs (no make-up/ 08/21 (100%) shaving): Grooming FIM Score 5. Supervision ([place] applies toothpaste or opens containers.) Toileting Toileting Device Commode over Toilet Patient able to: Adjust clothes before,Clean self,Adjust clothes after Patient able to perform: 3/3 (100%) Toileting FIM Score 5. Supv./Set-Up (Needs stand-by, set-up, applying prosth/orth.) Social interaction/Memory/Problem solving Social Interaction FIM Score 6. Mod. [place] (Mostly appropriate. May need meds. No supv.) Memory FIM Score 6. Modified [place](Mild difficulty remembering people/routines.) Problem Solving FIM Score 6. Mod. [place] (Mild difficulty or needs more time w/ complex.) Transfers Mode of Locomotion: Wheelchair Bed/Chair/Wheelchair Transfers 5. Supervision (Needs supv. or set-up for FIM Score sliding board, foot rests.) Eating Eating FIM Score 5. Supervision/Set-Up (Needs help w/ containers, cutting meat, etc.) Dressing-Upper body Patient retrieves clothing Yes items: Upper Body Dressing FIM Score 5. Supv./Set-Up ([place] sets out clothes or applies pros./orth.) Dressing-lower body Patient retrieves clothing Yes items: Patient applies/removes LE Yes prosthesis or orthosis: Lower Body Dressing FIM Score 5. Supv./Set-Up ([place] sets out clothes or applies pros./orth.) - Labs CBC & Chem 7: 10/21/20 06:59 10/21/20 06:59 Labs: Laboratory Results - last 72 hr 10/19/20 10/19/20 10/19/20 11:26 16:11 21:10 WBC RBC Hgb Hct MCV MCH MCHC RDW Plt Count Sodium Potassium Chloride Carbon Dioxide Anion Gap BUN Creatinine Estimated GFR BUN/Creatinine Ratio Glucose POC Glucose 222 H 104 165 H Calcium 10/20/20 10/20/20 10/20/20 06:31 06:31 07:48 WBC 7.8 RBC 2.98 L Hgb 9.0 L Hct 25.9 L MCV 87 MCH 30 MCHC 35 H RDW 14.1 Plt Count 701 H Sodium 134 L Potassium 4.7 Chloride 97.0 L Carbon Dioxide 28 Anion Gap 14 BUN 24 H Creatinine 1.0 Estimated GFR 54 BUN/Creatinine Ratio 24 Glucose 125 H POC Glucose 121 H Calcium 9.0 10/20/20 10/20/20 10/20/20 11:55 16:19 21:00 WBC RBC Hgb Hct MCV MCH MCHC RDW Plt Count Sodium Potassium Chloride Carbon Dioxide Anion Gap BUN Creatinine Estimated GFR BUN/Creatinine Ratio Glucose POC Glucose 201 H 130 H 201 H Calcium 10/21/20 10/21/20 10/21/20 06:59 06:59 07:18 WBC 7.9 RBC 3.06 L Hgb 9.1 L Hct 26.6 L MCV 87 MCH 30 MCHC 34 RDW 14.1 Plt Count 739 H Sodium 134 L Potassium 5.0 Chloride 98.0 Carbon Dioxide 25 Anion Gap 16 BUN 24 H Creatinine 1.2 Estimated GFR 44 BUN/Creatinine Ratio 20 Glucose 80 POC Glucose 76 Calcium 8.8 10/21/20 10/21/20 10/21/20 11:04 16:30 21:02 WBC RBC Hgb Hct MCV MCH MCHC RDW Plt Count Sodium Potassium Chloride Carbon Dioxide Anion Gap BUN Creatinine Estimated GFR BUN/Creatinine Ratio Glucose POC Glucose 280 H 150 H 270 H Calcium Assessment and Plan Right BKA: Continue to utilize right limb protector. Continue therapy to improve patient's overall mobility and self-care. Monitor wound for any signs of worsening, infection, dehiscence. Wound care has been consulted. Notify vascular surgery for any issues with wound healing. Have discussed working with the prosthetists with the patient and will work on getting her referral for further fitting as she progresses and when the time is right/approved by surgeon. Surgeon re-consulted for continued bleeding which has now subsided with decrease of Eliquis dose. Phantom sensation: Continue desensitization and monitor for any signs of phantom pain. If patient does start having issues with phantom pain we can start further medications as needed. Discussion had with patient about phantom sensation and best ways to control it. We will start gabapentin for neuropathic pain she is experiencing in the residual limb Postoperative pain: All medications have been adjusted to oral doses of oxycodone. Continue to monitor patient's pain and adjust medications as needed with the goal of dose reduction as we move further from the surgery. Anemia: Patient previously transfuse 1 unit PRBCs on acute care side. Monitor hemoglobin on a regular basis and transfuse as needed. Primarily acute blood loss anemia. May check iron, folate and B12 if hemoglobin does not significantly improve. COPD: Continue albuterol. Patient continues to smoke and has been counseled on smoking cessation. Monitor O2 saturations and adjust medications as needed Hypertension: Blood pressure has improved without medication. We will continue to monitor and start medications if needed. As needed hydralazine has been ordered. Patient states she was previously taking amlodipine 10 mg daily. Diabetes, poorly controlled: Lantus adjusted to twice daily dosing and sliding scale increased. Carb controlled diet. Monitor glucose checks and adjust as needed. PAD/PVD: Continue Eliquis and antiplatelets. Follow-up with vascular surgery as outpatient or as needed in-house. ADL dysfunction: OT will work on improving ability to perform ADLs (including a ssistive devices) to increase independence and decrease caregiver burden and improve functional transfers and mobility training. Difficulty walking: PT will work on gait training and proper use of assistive devices and advance as appropriate to use of stairs and outside ambulation on uneven surfaces. Unsteadiness on feet: PT will work on improving static and dynamic sitting and standing balance as well as proper use of assistive devices to decrease risk of falls. Abnormality of gait: PT will work to improve safety and efficiency of gait through neuromotor training and gait training along with instruction on proper use of assistive devices. Muscle weakness: PT & OT will work on strengthening exercises to improve functional strength including mixture of closed and open kinetic chain exer cises. Debility: PT & OT will work on improving overall functional status to improve participation with ADLs, mobility and social involvement. Fatigue: PT & OT will work on improving endurance through aerobic exercises and therapeutic activity while monitoring patients tolerance for activity and vital signs as needed. DVT ppx: Eliquis Pain: Continue physical modalities in therapy and pain medications as needed to achieve functional pain control. Sleep: Monitor and address as needed. Ambien as needed Bowel: Monitor and address as needed. As needed medications available Appetite: Monitor and address as needed. Discharge planning: Pending therapy progress and care plan meeting. Will c ontinue discussion with therapy team, SW, patient and family. Patient has rolling walker and shower chair at home. Will need to discharge with a wheelchair. Restrictions/ Precautions: Falls, wound WB status: NWB on RLE Functional Hx: ADLs: Independent Cognition: Independent Mobility: No AD Barriers to Discharge: Decreased mobility and ability to perform self care, balance deficits, weakness Estimated Length of Stay: 1014 days Discharge Destination: Home with significant other in a trailer with 3 steps
[2020-10-22] MEDS: ZOLPIDEM 5 MG TAB PO PRN (21:59)
[2020-10-22] MEDS: GABAPENTIN 300 MG CAP PO SCH (22:00)
[2020-10-23] MEDS: INSULIN LISPRO 100 UNIT/ML SUB-Q SCH ×4 (07:25→22:37)
[2020-10-23] MEDS: INSULIN GLARGINE 100 UNITS/ML SUB-Q SCH ×2 (09:35→22:28)
[2020-10-23] MEDS: ASPIRIN EC 81 MG TAB PO SCH (11:44)
[2020-10-23] MEDS: oxyCODONE 5 MG TAB PO PRN ×2 (11:44→22:27)
[2020-10-23] MEDS: APIXABAN 2.5 MG TAB PO SCH ×2 (11:45→22:27)
[2020-10-23] MEDS: NICOTINE 7 MG/24 HR PATCH TD SCH (11:45)
[2020-10-23] MEDS: PANTOPRAZOLE 40 MG TAB PO SCH (11:45)
[2020-10-23] MEDS: GABAPENTIN 300 MG CAP PO SCH (22:27)
[2020-10-23] MEDS: ZOLPIDEM 5 MG TAB PO PRN (22:28)
[2020-10-24 07:09] LABS: Hematocrit 28.6 % (30.3-42.9); Hemoglobin 9.6 gm/dl (10.1-14.3); Mean Corpuscular HGB Conc 33 % (30-34); Mean Corpuscular Volume 87 fl (79-97); Platelet Count 660 K/mm3 (140-440); Red Cell Distribution Width 14.1 % (13.2-15.2)
[2020-10-24 07:30] LABS: Calcium 9.7 mg/dL (8.4-10.2)
[2020-10-24] MEDS: INSULIN LISPRO 100 UNIT/ML SUB-Q SCH ×4 (07:57→22:56)
[2020-10-24] MEDS: ASPIRIN EC 81 MG TAB PO SCH (08:00)
[2020-10-24] MEDS: PANTOPRAZOLE 40 MG TAB PO SCH (08:01)
[2020-10-24] MEDS: NICOTINE 7 MG/24 HR PATCH TD SCH (08:01)
[2020-10-24] MEDS: INSULIN GLARGINE 100 UNITS/ML SUB-Q SCH ×2 (08:01→22:56)
[2020-10-24] MEDS: oxyCODONE 5 MG TAB PO PRN ×3 (08:02→22:59)
--- NOTE | 2020-10-24 09:34 | Progress Note ---
Subjective Date of service: 10/24/20 Principal diagnosis: Right BKA Interval history: 74-year-old female who presented to the ER on 10/04 with worsening right lower extremity wounds. Patient has longstanding history of peripheral vascular disease and has previously undergone endovascular interventions however the wounds were not healing. She was offered amputation but wanted to pursue limb salvage if at all possible. She was started on antibiotics for wound infection and after period of time and discussing with her family opted for a amputation. Patient does have a knee replacement in the right leg and the steps were taken to make sure that the amputation was below the level of the hardware. She had good popliteal pulse. Dr. Uday Mackay performed a right BKA on 10/11. Amputation was without complications. Patient did have ongoing blood loss and anemia and she was transfused 1 unit of packed red blood cells on 10/14. During a previous hospitalization, patient was placed on Eliquis for severe peripheral vascular disease along with antiplatelets. After the patient was medically stabilized they were transferred for further rehabilitation. All available medical records have been reviewed. Plan of care was discussed with patient. Approximately 45 minutes was invested and record review of patient's prior medical history here in the hospital. Also had prolonged discussion with the patient including approximately 25 minutes [id number] discussing her prognosis and future prosthesis. Patient is planning to move to [place] with her daughter in the near future. She and her significant other will move in with them and will likely need to have continued medical support there. Interval History: Patient is participating in therapy and making reasonable progress. Taking rest breaks as needed. +BM. Denies palpitations, dyspnea, cough, N/V, weakness, or joint pain. Right BKA: Continue to monitor for any signs of dehiscence or infection. Wound intact. Wound care has evaluated. Dressings should be changed every other day. Stump protector in place. We will continue to monitor for further resolution. Pain fairly well controlled with current medications. Hypertension: Hypertension improved without any reports of hypotensive episodes. Patient continues to not require medications at this point. States that she was taking amlodipine 10 mg at home. Diastolic pressure has dipped lower on occasion. Diabetes: Poorly controlled overall. Doing slightly better on split dosing of Lantus but still showing some signs of elevation, will increase dosing. We will continue to monitor current diabetes regimen and adjust as needed. Discussed need to stop drinking fruit juices. Will monitor and look possibly increase insulin dose over the next couple of days. PVD: Continue supportive care monitor. Patient continues on aspirin and Eliquis. Patient's Eliquis dose reverted back to 2.5 mg twice daily which she was taking prior to this hospitalization. Will need to follow-up with vascular surgery at discharge Pain: Postoperative pain fairly well controlled on current dosing of opioids. Tolerating starting dose of gabapentin. We will slowly titrate as needed. Anemia: We will continue to monitor and transfuse as needed. Hemoglobin stable and bleeding has stopped. Will recheck labs on Saturday. Constipation: Continue bowel medications and monitor for improvement. Patient is having intermittent bowel movements. Insomnia: Continue Ambien as needed. Patient previously took this and this is not my first choice of medication for someone her age. All records, vitals, labs and medications were reviewed. No other issues per patient, nursing or therapy. Objective - Exam Narrative Exam: MUSCULOSKELETAL SPECIALTY EXAM CONSTITUTIONAL: Well developed, well nourished, appropriately groomed, thin RESPIRATORY: Clear to auscultation bilaterally, no increased work of breathing CARDIOVASCULAR: Regular Rate/ Rhythm, no swelling, edema or tenderness in BUE or BLE. All extremities warm. GI: + bowel sounds, soft, NTTP, nondistended. INTEGUMENTARY: Normal, no lesion, rash, masses or bruising noted in extremities. Right BKA wound with intact and dry dressing this morning. Blister has ruptured on inferior medial aspect. MUSCULOSKELETAL: Right BKA, otherwise, BUE and BLE normal without defect, crepitus, subluxation, effusion, arthritic changes or TTP. BUE 4+/5, good ROM, with normal tone. LLE 4+/5 good ROM, with normal tone, RLE with reasonable range of motion and 4- /5, stump protector in place. Appropriate TTP at surgical area. NEURO: Sensation intact in all extremities. No tremor noted in 4 extremities. POSTURE and GAIT: Sitting posture good. PSYCH: Alert, oriented x3, affect appears normal . Insight appears intact. - Constitutional Vitals: Vital Signs - 12hr 10/24/ 07:31 Temperature 97.5 F L Pulse Rate 77 Respiratory 16 Rate Blood Pressure 129/59 O2 Sat by Pulse 100 Oximetry - Allied health notes Allied health notes reviewed: nursing, PT, OT FIMS assessment as documented by PT/OT/ST: Grooming Patient cleans teeth/dentures: Yes Patient duckworth/brushes hair: Yes Patient washes, rinses and Yes dries face: Patient washes, rinses and Yes dries hands: Patient performs (no make-up/ 08/21 (100%) shaving): Grooming FIM Score 5. Supervision ([place] applies toothpaste or opens containers.) Toileting Toileting Device Commode over Toilet Patient able to: Adjust clothes before,Clean self,Adjust clothes after Patient able to perform: 3/3 (100%) Toileting FIM Score 5. Supv./Set-Up (Needs stand-by, set-up, applying prosth/orth.) Social interaction/Memory/Problem solving Social Interaction FIM Score 6. Mod. [place] (Mostly appropriate. May need meds. No supv.) Memory FIM Score 6. Modified [place](Mild difficulty remembering people/routines.) Problem Solving FIM Score 6. Mod. [place] (Mild difficulty or needs more time w/ complex.) Transfers Mode of Locomotion: Wheelchair Bed/Chair/Wheelchair Transfers 5. Supervision (Needs supv. or set-up for FIM Score sliding board, foot rests.) Eating Eating FIM Score 5. Supervision/Set-Up (Needs help w/ containers, cutting meat, etc.) Dressing-Upper body Patient retrieves clothing Yes items: Upper Body Dressing FIM Score 5. Supv./Set-Up ([place] sets out clothes or applies pros./orth.) Dressing-lower body Patient retrieves clothing Yes items: Patient applies/removes LE Yes prosthesis or orthosis: Lower Body Dressing FIM Score 5. Supv./Set-Up ([place] sets out clothes or applies pros./orth.) - Labs CBC & Chem 7: 10/24/20 05:59 10/24/20 05:59 Labs: Laboratory Results - last 72 hr 10/21/20 10/21/20 10/21/20 11:04 16:30 21:02 WBC RBC Hgb Hct MCV MCH MCHC RDW Plt Count Sodium Potassium Chloride Carbon Dioxide Anion Gap BUN Creatinine Estimated GFR BUN/Creatinine Ratio Glucose POC Glucose 280 H 150 H 270 H Calcium 10/22/20 10/22/20 10/22/20 07:52 11:19 16:13 WBC RBC Hgb Hct MCV MCH MCHC RDW Plt Count Sodium Potassium Chloride Carbon Dioxide Anion Gap BUN Creatinine Estimated GFR BUN/Creatinine Ratio Glucose POC Glucose 166 H 134 H 219 H Calcium 10/22/20 10/23/20 10/23/20 21:24 07:55 11:37 WBC RBC Hgb Hct MCV MCH MCHC RDW Plt Count Sodium Potassium Chloride Carbon Dioxide Anion Gap BUN Creatinine Estimated GFR BUN/Creatinine Ratio Glucose POC Glucose 136 H 126 H 243 H Calcium 10/23/20 10/23/20 10/24/20 16:11 21:26 05:59 WBC 7.5 RBC 3.30 L Hgb 9.6 L Hct 28.6 L MCV 87 MCH 29 MCHC 33 RDW 14.1 Plt Count 660 H Sodium Potassium Chloride Carbon Dioxide Anion Gap BUN Creatinine Estimated GFR BUN/Creatinine Ratio Glucose POC Glucose 235 H 161 H Calcium 10/24/20 05:59 WBC RBC Hgb Hct MCV MCH MCHC RDW Plt Count Sodium 133 L Potassium 4.5 Chloride 95.7 L Carbon Dioxide 26 Anion Gap 16 BUN 27 H Creatinine 1.0 Estimated GFR 54 BUN/Creatinine Ratio 27 Glucose 96 POC Glucose Calcium 9.7 Assessment and Plan Right BKA: Continue to utilize right limb protector. Continue therapy to improve patient's overall mobility and self-care. Monitor wound for any signs of worsening, infection, dehiscence. Wound care has been consulted. Notify vascular surgery for any issues with wound healing. Have discussed working with the prosthetists with the patient and will work on getting her referral for further fitting as she progresses and when the time is right/approved by surgeon. Phantom sensation: Continue desensitization and monitor for any signs of phantom pain. If patient does start having issues with phantom pain we can start further medications as needed. Discussion had with patient about phantom sensation and best ways to control it. We will start gabapentin for neuropathic pain she is experiencing in the residual limb Postoperative pain: All medications have been adjusted to oral doses of oxycod one. Continue to monitor patient's pain and adjust medications as needed with the goal of dose reduction as we move further from the surgery. Anemia: Patient previously transfuse 1 unit PRBCs on acute care side. Monitor hemoglobin on a regular basis and transfuse as needed. Primarily acute blood loss anemia. COPD: Continue albuterol. Patient continues to smoke and has been counseled on smoking cessation. Monitor O2 saturations and adjust medications as needed Hypertension: Blood pressure has improved without medication. We will continue to monitor and start medications if needed. As needed hydralazine has been ordered. Patient states she was previously taking amlodipine 10 mg daily. Diabetes, poorly controlled: Lantus adjusted to twice daily dosing and sliding scale increased. Carb controlled diet. Monitor glucose checks and adjust as needed. PAD/PVD: Continue Eliquis and antiplatelets. Follow-up with vascular surgery as outpatient or as needed in-house. ADL dysfunction: OT will work on improving ability to perform ADLs (including assistive devices) to increase independence and decrease caregiver burden and improve functional transfers and mobility training. Difficulty walking: PT will work on gait training and proper use of assistive devices and advance as appropriate to use of stairs and outside ambulation on uneven surfaces. Unsteadiness on feet: PT will work on improving static and dynamic sitting and standing balance as well as proper use of assistive devices to decrease risk of falls. Abnormality of gait: PT will work to improve safety and efficiency of gait through neuromotor training and gait training along with instruction on proper use of assistive devices. Muscle weakness: PT & OT will work on strengthening exercises to improve funct ional strength including mixture of closed and open kinetic chain exercises. Debility: PT & OT will work on improving overall functional status to improve participation with ADLs, mobility and social involvement. Fatigue: PT & OT will work on improving endurance through aerobic exercises and therapeutic activity while monitoring patients tolerance for activity and vital signs as needed. DVT ppx: Eliquis Pain: Continue physical modalities in therapy and pain medications as needed to achieve functional pain control. Sleep: Monitor and address as needed. Ambien as needed Bowel: Monitor and address as needed. As needed medications available Appetite: Monitor and address as needed. Discharge planning: Pending therapy progress and care plan meeting. Will continue discussion with therapy team, SW, patient and family. Patient has rolling walker and shower chair at home. Will need to discharge with a wheelchair. Restrictions/ Precautions: Falls, wound WB status: NWB on RLE Functional Hx: ADLs: Independent Cognition: Independent Mobility: No AD Barriers to Discharge: Decreased mobility and ability to perform self care, balance deficits, weakness Estimated Length of Stay: 1014 days Discharge Destination: Home with significant other in a trailer with 3 steps
[2020-10-24] MEDS: APIXABAN 2.5 MG TAB PO SCH ×2 (12:09→22:56)
[2020-10-24] MEDS: GABAPENTIN 300 MG CAP PO SCH (22:56)
[2020-10-24] MEDS: ZOLPIDEM 5 MG TAB PO PRN (23:06)
--- NOTE | 2020-10-25 07:52 | Progress Note ---
Subjective Date of service: 10/25/20 Principal diagnosis: Right BKA Interval history: 74-year-old female who presented to the ER on 10/04 with worsening right lower extremity wounds. Patient has longstanding history of peripheral vascular disease and has previously undergone endovascular interventions however the wounds were not healing. She was offered amputation but wanted to pursue limb salvage if at all possible. She was started on antibiotics for wound infection and after period of time and discussing with her family opted for a amputation. Patient does have a knee replacement in the right leg and the steps were taken to make sure that the amputation was below the level of the hardware. She had good popliteal pulse. Dr. Uday Mackay performed a right BKA on 10/11. Amputation was without complications. Patient did have ongoing blood loss and anemia and she was transfused 1 unit of packed red blood cells on 10/14. During a previous hospitalization, patient was placed on Eliquis for severe peripheral vascular disease along with antiplatelets. After the patient was medically stabilized they were transferred for further rehabilitation. All available medical records have been reviewed. Plan of care was discussed with patient. Approximately 45 minutes was invested and record review of patient's prior medical history here in the hospital. Also had prolonged discussion with the patient including approximately 25 minutes [id number] discussing her prognosis and future prosthesis. Patient is planning to move to [place] with her daughter in the near future. She and her significant other will move in with them and will likely need to have continued medical support there. Interval History: Patient is participating in therapy and making reasonable progress. Taking rest breaks as needed. +BM. Denies palpitations, dyspnea, cough, N/V, weakness, or joint pain. Right BKA: Continue to monitor for any signs of dehiscence or infection. Wound intact. Wound care has evaluated. Dressings should be changed every other day. Stump protector in place. We will continue to monitor for further resolution. Pain fairly well controlled with current medications. Will take dressing down tomorrow. Hypertension: Hypertension improved without any reports of hypotensive episodes. Patient continues to not require medications at this point. States that she was taking amlodipine 10 mg at home. Diastolic pressure has dipped lower on occasion. Diabetes: Poorly controlled overall. Doing better on split dosing of Lantus but still showing some signs of elevation. We will continue to monitor current diabetes regimen and adjust as needed. Discussed need to stop drinking fruit juices. Will monitor and look possibly increase insulin dose over the next couple of days. PVD: Continue supportive care monitor. Patient continues on aspirin and Eliquis. Patient's Eliquis dose reverted back to 2.5 mg twice daily which she was taking prior to this hospitalization. Will need to follow-up with vascular surgery at discharge Pain: Postoperative pain fairly well controlled on current dosing of opioids. Tolerating starting dose of gabapentin. We will slowly titrate as needed. Anemia: We will continue to monitor and transfuse as needed. Hemoglobin s table and bleeding has stopped. Constipation: Continue bowel medications and monitor for improvement. Patient is having intermittent bowel movements. Insomnia: Continue Ambien as needed. All records, vitals, labs and medications were reviewed. No other issues per patient, nursing or therapy. Patient discussed in team conference. Making decent progress with therapy but still having some hesitancy for being completely independent. We will continue to work to improve her ability to perform transfers and self-care. Patient will look to discharge sometime early next week if not a little bit sooner. Will need a wheelchair at home. Will also need a bedside commode, she has a shower chair and rolling walker at home. Objective - Exam Narrative Exam: MUSCULOSKELETAL SPECIALTY EXAM CONSTITUTIONAL: Well developed, well nourished, appropriately groomed, thin RESPIRATORY: Clear to auscultation bilaterally, no increased work of breathing CARDIOVASCULAR: Regular Rate/ Rhythm, no swelling, edema or tenderness in BUE or BLE. All extremities warm. GI: + bowel sounds, soft, NTTP, nondistended. INTEGUMENTARY: Normal, no lesion, rash, masses or bruising noted in extremities. Right BKA wound with intact and dry dressing this morning. Blister has ruptured on inferior medial aspect. MUSCULOSKELETAL: Right BKA, otherwise, BUE and BLE normal without defect, crepitus, subluxation, effusion, arthritic changes or TTP. BUE 4+/5, good ROM, with normal tone. LLE 4+/5 good ROM, with normal tone, RLE with reasonable range of motion and 4- /5, stump protector in place. Appropriate TTP at surgical area. NEURO: Sensation intact in all extremities. No tremor noted in 4 extremities. POSTURE and GAIT: Sitting posture good. PSYCH: Alert, oriented x3, affect appears normal . Insight appears intact. - Constitutional Vitals: Vital Signs - 12hr 10/25/20 05:21 Temperature 98.5 F Pulse Rate 78 Respiratory 16 Rate Blood Pressure 123/79 [Left] O2 Sat by Pulse 97 Oximetry - Allied health notes Allied health notes reviewed: nursing, PT, OT FIMS assessment as documented by PT/OT/ST: Grooming Patient cleans teeth/dentures: Yes Patient duckworth/brushes hair: Yes Patient washes, rinses and Yes dries face: Patient washes, rinses and Yes dries hands: Patient performs (no make-up/ / (100%) shaving): Grooming FIM Score 5. Supervision ([place] applies toothpaste or opens containers.) Toileting Toileting Device Commode over Toilet Patient able to: Adjust clothes before,Clean self,Adjust clothes after Patient able to perform: 3/3 (100%) Toileting FIM Score 5. Supv./Set-Up (Needs stand-by, set-up, applying prosth/orth.) Social interaction/Memory/Problem solving Social Interaction FIM Score 6. Mod. [place] (Mostly appropriate. May need meds. No supv.) Memory FIM Score 6. Modified [place](Mild difficulty remembering people/routines.) Problem Solving FIM Score 6. Mod. [place] (Mild difficulty or needs more time w/ complex.) Transfers Mode of Locomotion: Wheelchair Bed/Chair/Wheelchair Transfers 5. Supervision (Needs supv. or set-up for FIM Score sliding board, foot rests.) Eating Eating FIM Score 6. Modified [place] (Special consistency or uses device.) Dressing-Upper body Patient retrieves clothing Yes items: Upper Body Dressing FIM Score 6. Modified [place] (Needs equipment, velcro or pros./orth.) Dressing-lower body Patient retrieves clothing Yes items: Patient applies/removes LE Yes prosthesis or orthosis: Lower Body Dressing FIM Score 5. Supv./Set-Up ([place] sets out clothes or applies pros./orth.) - Labs CBC & Chem 7: 10/24/20 05:59 10/24/20 05:59 Labs: Laboratory Results - last 72 hr 10/22/20 10/22/20 10/22/20 07:52 11:19 16:13 WBC RBC Hgb Hct MCV MCH MCHC RDW Plt Count Sodium Potassium Chloride Carbon Dioxide Anion Gap BUN Creatinine Estimated GFR BUN/Creatinine Ratio Glucose POC Glucose 166 H 134 H 219 H Calcium 10/22/20 10/23/20 10/23/20 21:24 07:55 11:37 WBC RBC Hgb Hct MCV MCH MCHC RDW Plt Count Sodium Potassium Chloride Carbon Dioxide Anion Gap BUN Creatinine Estimated GFR BUN/Creatinine Ratio Glucose POC Glucose 136 H 126 H 243 H Calcium 10/23/20 10/23/20 10/24/20 16:11 21:26 05:59 WBC 7.5 RBC 3.30 L Hgb 9.6 L Hct 28.6 L MCV 87 MCH 29 MCHC 33 RDW 14.1 Plt Count 660 H Sodium Potassium Chloride Carbon Dioxide Anion Gap BUN Creatinine Estimated GFR BUN/Creatinine Ratio Glucose POC Glucose 235 H 161 H Calcium 10/24/20 10/24/20 10/24/20 05:59 07:49 11:39 WBC RBC Hgb Hct MCV MCH MCHC RDW Plt Count Sodium 133 L Potassium 4.5 Chloride 95.7 L Carbon Dioxide 26 Anion Gap 16 BUN 27 H Creatinine 1.0 Estimated GFR 54 BUN/Creatinine Ratio 27 Glucose 96 POC Glucose 87 196 H Calcium 9.7 10/24/20 10/24/20 16:34 21:06 WBC RBC Hgb Hct MCV MCH MCHC RDW Plt Count Sodium Potassium Chloride Carbon Dioxide Anion Gap BUN Creatinine Estimated GFR BUN/Creatinine Ratio Glucose POC Glucose 113 H 274 H Calcium Assessment and Plan Right BKA: Continue to utilize right limb protector. Continue therapy to improve patient's overall mobility and self-care. Monitor wound for any signs of worsening, infection, dehiscence. Wound care has been consulted. Notify vascular surgery for any issues with wound healing. Have discussed working with the prosthetists with the patient and will work on getting her referral for further fitting as she progresses and when the time is right/approved by surgeon. Phantom sensation: Continue desensitization and monitor for any signs of phantom pain. If patient does start having issues with phantom pain we can start further medications as needed. Discussion had with patient about phantom sensation and best ways to control it. We will start gabapentin for neuropathic pain she is experiencing in the residual limb Postoperative pain: All medications have been adjusted to oral doses of oxycodone. Continue to monitor patient's pain and adjust medications as needed with the goal of dose reduction as we move further from the surgery. Anemia: Patient previously transfuse 1 unit PRBCs on acute care side. Monitor hemoglobin on a regular basis and transfuse as needed. Primarily acute blood loss anemia. COPD: Continue albuterol. Patient continues to smoke and has been counseled on smoking cessation. Monitor O2 saturations and adjust medications as needed Hypertension: Blood pressure has improved without medication. We will continue to monitor and start medications if needed. As needed hydralazine has been ordered. Patient states she was previously taking amlodipine 10 mg daily. Diabetes, poorly controlled: Lantus adjusted to twice daily dosing and sliding scale increased. Carb controlled diet. Monitor glucose checks and adjust as needed. PAD/PVD: Continue Eliquis and antiplatelets. Follow-up with vascular surgery as outpatient or as needed in-house. ADL dysfunction: OT will work on improving ability to perform ADLs (including assistive devices) to increase independence and decrease caregiver burden and im prove functional transfers and mobility training. Difficulty walking: PT will work on gait training and proper use of assistive devices and advance as appropriate to use of stairs and outside ambulation on uneven surfaces. Unsteadiness on feet: PT will work on improving static and dynamic sitting and standing balance as well as proper use of assistive devices to decrease risk of falls. Abnormality of gait: PT will work to improve safety and efficiency of gait through neuromotor training and gait training along with instruction on proper use of assistive devices. Muscle weakness: PT & OT will work on strengthening exercises to improve functional strength including mixture of closed and open kinetic chain exercises. Debility: PT & OT will work on improving overall functional status to improve participation with ADLs, mobility and social involvement. Fatigue: PT & OT will work on improving endurance through aerobic exercises and therapeutic activity while monitoring patients tolerance for activity and vital signs as needed. DVT ppx: Eliquis Pain: Continue physical modalities in therapy and pain medications as needed to achieve functional pain control. Sleep: Monitor and address as needed. Ambien as needed Bowel: Monitor and address as needed. As needed medications available Appetite: Monitor and address as needed. Discharge planning: Pending therapy progress and care plan meeting. Will continue discussion with therapy team, SW, patient and family. Patient has roll ing walker and shower chair at home. Will need to discharge with a wheelchair. Restrictions/ Precautions: Falls, wound WB status: NWB on RLE Functional Hx: ADLs: Independent Cognition: Independent Mobility: No AD Barriers to Discharge: Decreased mobility and ability to perform self care, balance deficits, weakness Estimated Length of Stay: 1014 days Discharge Destination: Home with significant other in a trailer with 3 steps
[2020-10-25] MEDS: INSULIN LISPRO 100 UNIT/ML SUB-Q SCH ×4 (08:30→22:21)
[2020-10-25] MEDS: oxyCODONE 5 MG TAB PO PRN ×2 (10:35→22:17)
[2020-10-25] MEDS: APIXABAN 2.5 MG TAB PO SCH ×2 (10:36→22:18)
[2020-10-25] MEDS: ASPIRIN EC 81 MG TAB PO SCH (10:36)
[2020-10-25] MEDS: NICOTINE 7 MG/24 HR PATCH TD SCH (10:36)
[2020-10-25] MEDS: INSULIN GLARGINE 100 UNITS/ML SUB-Q SCH ×2 (10:38→22:17)
[2020-10-25] MEDS: PANTOPRAZOLE 40 MG TAB PO SCH (10:55)
[2020-10-25] MEDS: ZOLPIDEM 5 MG TAB PO PRN (22:17)
[2020-10-25] MEDS: GABAPENTIN 300 MG CAP PO SCH (22:18)
[2020-10-26] MEDS: NICOTINE 7 MG/24 HR PATCH TD SCH (09:22)
[2020-10-26] MEDS: PANTOPRAZOLE 40 MG TAB PO SCH (09:22)
[2020-10-26] MEDS: ASPIRIN EC 81 MG TAB PO SCH (09:22)
[2020-10-26] MEDS: INSULIN GLARGINE 100 UNITS/ML SUB-Q SCH ×2 (09:23→21:57)
[2020-10-26] MEDS: oxyCODONE 5 MG TAB PO PRN ×2 (09:23→22:01)
[2020-10-26] MEDS: INSULIN LISPRO 100 UNIT/ML SUB-Q SCH ×4 (09:29→23:45)
[2020-10-26] MEDS: APIXABAN 2.5 MG TAB PO SCH ×2 (11:49→21:57)
--- NOTE | 2020-10-26 14:29 | Progress Note ---
Subjective Date of service: 10/26/20 Principal diagnosis: Right BKA Interval history: 74-year-old female who presented to the ER on 10/04 with worsening right lower extremity wounds. Patient has longstanding history of peripheral vascular disease and has previously undergone endovascular interventions however the wounds were not healing. She was offered amputation but wanted to pursue limb salvage if at all possible. She was started on antibiotics for wound infection and after period of time and discussing with her family opted for a amputation. Patient does have a knee replacement in the right leg and the steps were taken to make sure that the amputation was below the level of the hardware. She had good popliteal pulse. Dr. Uday Mackay performed a right BKA on 10/11. Amputation was without complications. Patient did have ongoing blood loss and anemia and she was transfused 1 unit of packed red blood cells on 10/14. During a previous hospitalization, patient was placed on Eliquis for severe peripheral vascular disease along with antiplatelets. After the patient was medically stabilized they were transferred for further rehabilitation. All available medical records have been reviewed. Plan of care was discussed with patient. Approximately 45 minutes was invested and record review of patient's prior medical history here in the hospital. Also had prolonged discussion with the patient including approximately 25 minutes [id number] discussing her prognosis and future prosthesis. Patient is planning to move to [place] with her daughter in the near future. She and her significant other will move in with them and will likely need to have continued medical support there. Interval History: Patient is participating in therapy and making reasonable progress. Taking rest breaks as needed. +BM. Denies palpitations, dyspnea, cough, N/V, weakness, or joint pain. Discussed discharge with patient and her significant other as well as wound care and prosthetics timeline. Right BKA: Continue to monitor for any signs of dehiscence or infection. Wound intact. Wound care has evaluated. Dressings should be changed every other day. Stump protector in place. We will continue to monitor for further resolution. Pain fairly well controlled with current medications. Dressing removed, no excessive drainage noted on bandaging. Bleeding well controlled. Slight dusky appearance to skin today. Continue to monitor over next several days for improvement. Have asked wound care to reassess and compare photographs. No wound breakdown. Hypertension: Hypertension improved without any reports of hypotensive episodes. Patient continues to not require medications at this point. States that she was taking amlodipine 10 mg at home. Diastolic pressure has dipped lower on occasion. Diabetes: Poorly controlled overall. Doing better on split dosing of Lantus but still showing some signs of elevation. We will continue to monitor current diabetes regimen and adjust as needed. Improving PVD: Continue supportive care monitor. Patient continues on aspirin and Eliquis. Patient's Eliquis dose reverted back to 2.5 mg twice daily which she was taking prior to this hospitalization. Will need to follow-up with vascular surgery at discharge Pain: Postoperative pain fairly well controlled on current dosing of opioids. Tolerating starting dose of gabapentin. We will slowly titrate as needed. Anemia: We will continue to monitor and transfuse as needed. Hemoglobin stable and bleeding has stopped. Constipation: Continue bowel medications and monitor for improvement. Patient is having intermittent bowel movements. Insomnia: Discussed medication with patient, will discontinue Ambien and start trazodone. All records, vitals, labs and medications were reviewed. No other issues per patient, nursing or therapy. Objective - Exam Narrative Exam: MUSCULOSKELETAL SPECIALTY EXAM CONSTITUTIONAL: Well developed, well nourished, appropriately groomed, thin RESPIRATORY: Clear to auscultation bilaterally, no increased work of breathing CARDIOVASCULAR: Regular Rate/ Rhythm, no swelling, edema or tenderness in BUE or BLE. All extremities warm. GI: + bowel sounds, soft, NTTP, nondistended. INTEGUMENTARY: Normal, no lesion, rash, masses or bruising noted in extremities. Right BKA wound with intact and dry dressing this morning. Blister has ruptured on inf erior medial aspect. Skin has a slightly dusky appearance on the lateral aspect today, seem to improve with time of the bandage being off. MUSCULOSKELETAL: Right BKA, otherwise, BUE and BLE normal without defect, crepitus, subluxation, effusion, arthritic changes or TTP. BUE 4+/5, good ROM, with normal tone. LLE 4+/5 good ROM, with normal tone, RLE with reasonable range of motion and 4- /5, stump protector in place. Appropriate TTP at surgical area. NEURO: Sensation intact in all extremities. No tremor noted in 4 extremities. POSTURE and GAIT: Sitting posture good. PSYCH: Alert, oriented x3, affect appears normal . Insight appears intact. - Constitutional Vitals: Vital Signs - 12hr 10/26/20 10/26/2010/26/21 05:23 07:47 11:55 Temperature 97.9 F 98.0 F 98.7 F Pulse Rate 73 87 Respiratory 18 18 18 Rate Blood Pressure 124/56 124/49 120/49 O2 Sat by Pulse 98 99 Oximetry - Allied health notes Allied health notes reviewed: nursing, PT, OT FIMS assessment as documented by PT/OT/ST: Grooming Patient cleans teeth/dentures: Yes Patient duckworth/brushes hair: Yes Patient washes, rinses and Yes dries face: Patient washes, rinses and Yes dries hands: Patient performs (no make-up/ 08/21 (100%) shaving): Grooming FIM Score 5. Supervision (Metter applies toothpaste or opens containers.) Toileting Toileting Device Commode over Toilet Patient able to: Adjust clothes before,Clean self,Adjust clothes after Patient able to perform: 3/3 (100%) Toileting FIM Score 6. Modified [place] (Needs equip. or prost h ./orth.) Social interaction/Memory/Problem solving Social Interaction FIM Score 6. Mod. [place] (Mostly appropriate. May need meds. No supv.) Memory FIM Score 6. Modified [place](Mild difficulty remembering people/routines.) Problem Solving FIM Score 6. Mod. [place] (Mild difficulty or needs more time w/ complex.) Transfers Mode of Locomotion: Wheelchair Bed/Chair/Wheelchair Transfers 5. Supervision (Needs supv. or set-up for FIM Score sliding board, foot rests.) Eating Eating FIM Score 6. Modified [place] (Special consistency or uses device.) Dressing-Upper body Patient retrieves clothing Yes items: Upper Body Dressing FIM Score 7. Complete [place] (Dresses self. Gets own clothes.) Dressing-lower body Patient retrieves clothing Yes items: Patient applies/removes LE Yes prosthesis or orthosis: Lower Body Dressing FIM Score 5. Supv./Set-Up (Metter sets out clothes or applies pros./orth.) - Labs CBC & Chem 7: 10/24/20 05:59 10/24/20 05:59 Labs: Laboratory Results - last 72 hr 10/23/20 10/23/20 10/24/20 16:11 21:26 05:59 WBC 7.5 RBC 3.30 L Hgb 9.6 L Hct 28.6 L MCV 87 MCH 29 MCHC 33 RDW 14.1 Plt Count 660 H Sodium Potassium Chloride Carbon Dioxide Anion Gap BUN Creatinine Estimated GFR BUN/Creatinine Ratio Glucose POC Glucose 235 H 161 H Calcium 10/24/20 10/24/20 10/24/20 05:59 07:49 11:39 WBC RBC Hgb Hct MCV MCH MCHC RDW Plt Count Sodium 133 L Potassium 4.5 Chloride 95.7 L Carbon Dioxide 26 Anion Gap 16 BUN 27 H Creatinine 1.0 Estimated GFR 54 BUN/Creatinine Ratio 27 Glucose 96 POC Glucose 87 196 H Calcium 9.7 10/24/20 10/24/20 10/25/20 16:34 21:06 07:44 WBC RBC Hgb Hct MCV MCH MCHC RDW Plt Count Sodium Potassium Chloride Carbon Dioxide Anion Gap BUN Creatinine Estimated GFR BUN/Creatinine Ratio Glucose POC Glucose 113 H 274 H 121 H Calcium 10/25/20 10/25/20 10/25/20 11:29 16:02 21:56 WBC RBC Hgb Hct MCV MCH MCHC RDW Plt Count Sodium Potassium Chloride Carbon Dioxide Anion Gap BUN Creatinine Estimated GFR BUN/Creatinine Ratio Glucose POC Glucose 198 H 127 H 239 H Calcium 10/26/20 10/26/20 07:46 11:35 WBC RBC Hgb Hct MCV MCH MCHC RDW Plt Count Sodium Potassium Chloride Carbon Dioxide Anion Gap BUN Creatinine Estimated GFR BUN/Creatinine Ratio Glucose POC Glucose 78 121 H Calcium Assessment and Plan Right BKA: Continue to utilize right limb protector. Continue therapy to improve patient's overall mobility and self-care. Monitor wound for any signs of worsening, infection, dehiscence. Wound care has been consulted. Notify vascular surgery for any issues with wound healing. Have discussed working with the prosthetists with the patient and will work on getting her referral for further fitting as she progresses and when the time is right/approved by surgeon. Phantom sensation: Continue desensitization and monitor for any signs of phantom pain. If patient does start having issues with phantom pain we can start further medications as needed. Discussion had with patient about phantom sensation and best ways to control it. We will start gabapentin for neuropathic pain she is experiencing in the residual limb Postoperative pain: All medications have been adjusted to oral doses of oxycodone. Continue to monitor patient's pain and adjust medications as needed with the goal of dose reduction as we move further from the surgery. Anemia: Patient previously transfuse 1 unit PRBCs on acute care side. Monitor hemoglobin on a regular basis and transfuse as needed. Primarily acute blood loss anemia. COPD: Continue albuterol. Patient continues to smoke and has been counseled on smoking cessation. Monitor O2 saturations and adjust medications as needed Hypertension: Blood pressure has improved without medication. We will continue to monitor and start medications if needed. As needed hydralazine has been ordered. Patient states she was previously taking amlodipine 10 mg daily. Diabetes, poorly controlled: Lantus adjusted to twice daily dosing and sliding scale increased. Carb controlled diet. Monitor glucose checks and adjust as needed. PAD/PVD: Continue Eliquis and antiplatelets. Follow-up with vascular surgery as outpatient or as needed in-house. ADL dysfunction: OT will work on improving ability to perform ADLs (including assistive devices) to increase independence and decrease caregiver burden and improve functional transfers and mobility training. Difficulty walking: PT will work on gait training and proper use of assistive devices and advance as appropriate to use of stairs and outside ambulation on uneven surfaces. Unsteadiness on feet: PT will work on improving static and dynamic sitting and standing balance as well as proper use of assistive devices to decrease risk of falls. Abnormality of gait: PT will work to improve safety and efficiency of gait through neuromotor training and gait training along with instruction on proper use of assistive devices. Muscle weakness: PT & OT will work on strengthening exercises to improve functional strength including mixture of closed and open kinetic chain exercises. Debility: PT & OT will work on improving overall functional status to improve participation with ADLs, mobility and social involvement. Fatigue: PT & OT will work on improving endurance through aerobic exercises and therapeutic activity while monitoring patients tolerance for activity and vital signs as needed. DVT ppx: Eliquis Pain: Continue physical modalities in therapy and pain medications as needed to achieve functional pain control. Sleep: Monitor and address as needed. Discontinue Ambien and start trazodone Bowel: Monitor and address as needed. As needed medications available Appetite: Monitor and address as needed. Discharge planning: Pending therapy progress and care plan meeting. Will continue discussion with therapy team, SW, patient and family. Patient has rolling walker and shower chair at home. Will need to discharge with a wheelchair. We will look to discharge next Saturday. Restrictions/ Precautions: Falls, wound WB status: NWB on RLE Functional Hx: ADLs: Independent Cognition: Independent Mobility: No AD Barriers to Discharge: Decreased mobility and ability to perform self care, balance deficits, weakness Estimated Length of Stay: 1014 days Discharge Destination: Home with significant other in a trailer with 3 steps
[2020-10-26] MEDS: traZODone 50 MG TAB PO SCH (21:57)
[2020-10-26] MEDS: GABAPENTIN 300 MG CAP PO SCH (21:57)
[2020-10-27] MEDS: INSULIN LISPRO 100 UNIT/ML SUB-Q SCH ×4 (08:42→21:19)
[2020-10-27] MEDS: INSULIN GLARGINE 100 UNITS/ML SUB-Q SCH ×2 (08:43→21:19)
[2020-10-27] MEDS: PANTOPRAZOLE 40 MG TAB PO SCH (08:44)
[2020-10-27] MEDS: ASPIRIN EC 81 MG TAB PO SCH (08:44)
[2020-10-27] MEDS: NICOTINE 7 MG/24 HR PATCH TD SCH (08:44)
[2020-10-27] MEDS: oxyCODONE 5 MG TAB PO PRN ×2 (08:51→21:15)
[2020-10-27] MEDS: APIXABAN 2.5 MG TAB PO SCH ×2 (10:46→21:15)
--- NOTE | 2020-10-27 12:31 | Progress Note ---
Subjective Date of service: 10/27/20 Principal diagnosis: Right BKA Interval history: 74-year-old female who presented to the ER on 10/04 with worsening right lower extremity wounds. Patient has longstanding history of peripheral vascular disease and has previously undergone endovascular interventions however the wounds were not healing. She was offered amputation but wanted to pursue limb salvage if at all possible. She was started on antibiotics for wound infection and after period of time and discussing with her family opted for a amputation. Patient does have a knee replacement in the right leg and the steps were taken to make sure that the amputation was below the level of the hardware. She had good popliteal pulse. Dr. Uday Mackay performed a right BKA on 10/11. Amputation was without complications. Patient did have ongoing blood loss and anemia and she was transfused 1 unit of packed red blood cells on 10/14. During a previous hospitalization, patient was placed on Eliquis for severe peripheral vascular disease along with antiplatelets. After the patient was medically stabilized they were transferred for further rehabilitation. All available medical records have been reviewed. Plan of care was discussed with patient. Approximately 45 minutes was invested and record review of patient's prior medical history here in the hospital. Also had prolonged discussion with the patient including approximately 25 minutes [id number] discussing her prognosis and future prosthesis. Patient is planning to move to [place] with her daughter in the near future. She and her significant other will move in with them and will likely need to have continued medical support there. Interval History: Patient is participating in therapy and making reasonable progress. Taking rest breaks as needed. +BM. Denies palpitations, dyspnea, cough, N/V, weakness, or joint pain. Slept well overnight with change in medication. Right BKA: Continue to monitor for any signs of dehiscence or infection. Wound intact. Wound care has evaluated. Dressings should be changed every other day. Stump protector in place. We will continue to monitor for further resolution. Pain fairly well controlled with current medications. Dressing removed, no excessive drainage noted on bandaging. Bleeding well controlled. Continue to monitor over next several days for improvement. After reviewing photographs of patient when she initially arrived and those of yesterday, the dusky appearance looks to be similar. No wound breakdown. Hypertension: Hypertension improved without any reports of hypotensive episodes. Patient continues to not require medications at this point. States that she was taking amlodipine 10 mg at home. Diastolic pressure has dipped lower on occasion. Diabetes: Poorly controlled overall. Doing better on split dosing of Lantus and values look better over the last couple of days, all glucose checks were less than 200 yesterday. We will continue to monitor current diabetes regimen and adjust as needed. Improving PVD: Continue supportive care monitor. Patient continues on aspirin and Eliquis. Patient's Eliquis dose reverted back to 2.5 mg twice daily which she was taking prior to this hospitalization. Will need to follow-up with vascular surgery at discharge Pain: Postoperative pain fairly well controlled on current dosing of opioids. Tolerating starting dose of gabapentin. Neuropathic pain fairly well controlled on current dose of gabapentin, patient does have occasional episodes of pain but does not describe it consistent with phantom pain, more so neuropathic in nature in the residual limb. Anemia: We will continue to monitor and transfuse as needed. Hemoglobin stable and bleeding has stopped. Constipation: Continue bowel medications and monitor for improvement. Patient is having intermittent bowel movements. Insomnia: Continue trazodone, patient slept well overnight. Will discharge patient with a small quantity of these for home. All records, vitals, labs and medications were reviewed. No other issues per patient, nursing or therapy. Objective - Exam Narrative Exam: MUSCULOSKELETAL SPECIALTY EXAM CONSTITUTIONAL: Well developed, well nourished, appropriately groomed, thin RESPIRATORY: Clear to auscultation bilaterally, no increased work of breathing CARDIOVASCULAR: Regular Rate/ Rhythm, no swelling, edema or tenderness in BUE or BLE. All extremities warm. GI: + bowel sounds, soft, NTTP, nondistended. INTEGUMENTARY: Normal, no lesion, rash, masses or bruising noted in extremities. Right BKA wound with intact and dry dressing this morning. Blister has ruptured on inferior medial aspect. Bandage not taken down today, will take down tomorrow MUSCULOSKELETAL: Right BKA, otherwise, BUE and BLE normal without defect, crepitus, subluxation, effusion, arthritic changes or TTP. BUE 4+/5, good ROM, with normal tone. LLE 4+/5 good ROM, with normal tone, RLE with reasonable range of motion and 4- /5, stump protector in place. Appropriate TTP at surgical area. NEURO: Sensation intact in all extremities. No tremor noted in 4 extremities. POSTURE and GAIT: Sitting posture good. Standing posture good, and dynamic balance fair, tolerating hopping with rolling walker. PSYCH: Alert, oriented x3, affect appears normal . Insight appears intact. - Constitutional Vitals: Vital Signs - 12hr 10/27/20 10/27/20 10/27/20 04:37 07:33 11:21 Temperature 98.0 F 97.9 F 98.1 F Pulse Rate 85 74 82 Respiratory 18 18 18 Rate Blood Pressure 120/52 138/65 119/52 O2 Sat by Pulse 96 100 96 Oximetry - Allied health notes Allied health notes reviewed: nursing, PT, OT FIMS assessment as documented by PT/OT/ST: Grooming Patient cleans teeth/dentures: Yes Patient duckworth/brushes hair: Yes Patient washes, rinses and Yes dries face: Patient washes, rinses and Yes dries hands: Patient performs (no make-up/ / (100%) shaving): Grooming FIM Score 5. Supervision (Marissa applies toothpaste or opens containers.) Toileting Toileting Device Commode over Toilet Patient able to: Adjust clothes before,Clean self,Adjust clothes after Patient able to perform: 3/3 (100%) Toileting FIM Score 6. Modified [place] (Needs equip. or prosth ./orth.) Social interaction/Memory/Problem solving Social Interaction FIM Score 6. Mod. [place] (Mostly appropriate. May need meds. No supv.) Memory FIM Score 6. Modified [place](Mild difficulty remembering people/routines.) Problem Solving FIM Score 5. Super[place] (Needs cueing <10% to solve routine problems.) Transfers Mode of Locomotion: Wheelchair Bed/Chair/Wheelchair Transfers 5. Super[place] (Needs supv. or set-up for FIM Score sliding board, foot rests.) Eating Eating FIM Score 6. Modified [place] (Special consistency or uses device.) Dressing-Upper body Patient retrieves clothing Yes items: Upper Body Dressing FIM Score 7. Complete [place] (Dresses self. Gets o wn clothes.) Dressing-lower body Patient retrieves clothing Yes items: Patient applies/removes LE Yes prosthesis or orthosis: Lower Body Dressing FIM Score 6. Modified [place] (Needs equipment, velcro or pros./orth.) - Labs CBC & Chem 7: 10/24/20 05:59 10/24/20 05:59 Labs: Laboratory Results - last 72 hr 10/24/20 10/24/20 10/24/20 11:39 16:34 21:06 POC Glucose 196 H 113 H 274 H 10/25/20 10/25/20 10/25/20 07:44 11:29 16:02 POC Glucose 121 H 198 H 127 H 10/25/20 10/26/20 10/26/20 21:56 07:46 11:35 POC Glucose 239 H 78 121 H 10/26/20 10/26/20 10/27/20 16:08 21:47 07:33 POC Glucose 191 H 71 159 H 10/27/20 11:21 POC Glucose 153 H Assessment and Plan Right BKA: Continue to utilize right limb protector. Continue therapy to improve patient's overall mobility and self-care. Monitor wound for any signs of worsening, infection, dehiscence. Wound care has been consulted. Notify vascular surgery for any issues with wound healing. Have discussed working with the prosthetists with the patient and will work on getting her referral for further fitting as she progresses and when the time is right/approved by surgeon. Phantom sensation: Continue desensitization and monitor for any signs of phantom pain. If patient does start having issues with phantom pain we can start further medications as needed. Discussion had with patient about phantom sensation and best ways to control it. We will start gabapentin for neuropathic pain she is experiencing in the residual limb Postoperative pain: All medications have been adjusted to oral doses of oxycodone. Continue to monitor patient's pain and adjust medications as needed with the goal of dose reduction as we move further from the surgery. Anemia: Patient previously transfuse 1 unit PRBCs on acute care side. Monitor hemoglobin on a regular basis and transfuse as needed. Primarily acute blood loss anemia. Improving COPD: Continue albuterol. Patient continues to smoke and has been counseled on smoking cessation. Monitor O2 saturations and adjust medications as needed Hypertension: Blood pressure has improved without medication. We will continue to monitor and start medications if needed. As needed hydralazine has been ordered. Patient states she was previously taking amlodipine 10 mg daily. Diabetes, poorly controlled: Lantus adjusted to twice daily dosing and sliding scale increased. Improving. Carb controlled diet. Monitor glucose checks and adjust as needed. PAD/PVD: Continue Eliquis and antiplatelets. Follow-up with vascular surgery as outpatient or as needed in-house. ADL dysfunction: OT will work on improving ability to perform ADLs (including assistive devices) to increase independence and decrease caregiver burden and improve functional transfers and mobility training. Difficulty walking: PT will work on gait training and proper use of assistive devices and advance as appropriate to use of stairs and outside ambulation on uneven surfaces. Unsteadiness on feet: PT will work on improving static and dynamic sitting and standing balance as well as proper use of assistive devices to decrease risk of falls. Abnormality of gait: PT will work to improve safety and efficiency of gait through neuromotor training and gait training along with instruction on proper use of assistive devices. Muscle weakness: PT & OT will work on strengthening exercises to improve functional strength including mixture of closed and open kinetic chain exercises. Debility: PT & OT will work on improving overall functional status to improve participation with ADLs, mobility and social involvement. Fatigue: PT & OT will work on improving endurance through aerobic exercises and therapeutic activity while monitoring patients tolerance for activity and vital signs as needed. DVT ppx: Eliquis Pain: Continue physical modalities in therapy and pain medications as needed to achieve functional pain control. Sleep: Monitor and address as needed. Discontinue Ambien and start trazodone Bowel: Monitor and address as needed. As needed medications available Appetite: Monitor and address as needed. Discharge planning: Pending therapy progress and care plan meeting. Will continue discussion with therapy team, SW, patient and family. Patient has rolling walker and shower chair at home. Will need to discharge with a wheelchair. We will look to discharge next Saturday. Restrictions/ Precautions: Falls, wound WB status: NWB on RLE Functional Hx: ADLs: Independent Cognition: Independent Mobility: No AD Barriers to Discharge: Decreased mobility and ability to perform self care, benitez nce deficits, weakness Estimated Length of Stay: 1014 days Discharge Destination: Home with significant other in a trailer with 3 steps
[2020-10-27] MEDS: GABAPENTIN 300 MG CAP PO SCH (21:15)
[2020-10-27] MEDS: traZODone 50 MG TAB PO SCH (21:15)
[2020-10-28 06:54] LABS: Hematocrit 28.5 % (30.3-42.9); Hemoglobin 9.5 gm/dl (10.1-14.3); Mean Corpuscular HGB Conc 33 % (30-34); Mean Corpuscular Volume 86 fl (79-97); Platelet Count 534 K/mm3 (140-440); Red Blood Count 3.32 M/mm3 (3.65-5.03); Red Cell Distribution Width 14.5 % (13.2-15.2)
[2020-10-28 07:12] LABS: Calcium 9.7 mg/dL (8.4-10.2)
[2020-10-28] MEDS: INSULIN LISPRO 100 UNIT/ML SUB-Q SCH ×4 (08:11→22:43)
[2020-10-28] MEDS: INSULIN GLARGINE 100 UNITS/ML SUB-Q SCH ×2 (08:15→22:43)
[2020-10-28] MEDS: NICOTINE 7 MG/24 HR PATCH TD SCH (08:16)
[2020-10-28] MEDS: APIXABAN 2.5 MG TAB PO SCH ×3 (08:17→22:39)
[2020-10-28] MEDS: ASPIRIN EC 81 MG TAB PO SCH (08:17)
[2020-10-28] MEDS: PANTOPRAZOLE 40 MG TAB PO SCH (08:17)
[2020-10-28] MEDS: oxyCODONE 5 MG TAB PO PRN (08:24)
--- NOTE | 2020-10-28 08:29 | Progress Note ---
Subjective Date of service: 10/28/20 Principal diagnosis: Right BKA Interval history: 74-year-old female who presented to the ER on 10/04 with worsening right lower extremity wounds. Patient has longstanding history of peripheral vascular disease and has previously undergone endovascular interventions however the wounds were not healing. She was offered amputation but wanted to pursue limb salvage if at all possible. She was started on antibiotics for wound infection and after period of time and discussing with her family opted for a amputation. Patient does have a knee replacement in the right leg and the steps were taken to make sure that the amputation was below the level of the hardware. She had good popliteal pulse. Dr. Uday Mackay performed a right BKA on 10/11. Amputation was without complications. Patient did have ongoing blood loss and anemia and she was transfused 1 unit of packed red blood cells on 10/14. During a previous hospitalization, patient was placed on Eliquis for severe peripheral vascular disease along with antiplatelets. After the patient was medically stabilized they were transferred for further rehabilitation. All available medical records have been reviewed. Plan of care was discussed with patient. Approximately 45 minutes was invested and record review of patient's prior medical history here in the hospital. Also had prolonged discussion with the patient including approximately 25 minutes [id number] discussing her prognosis and future prosthesis. Patient is planning to move to [place] with her daughter in the near future. She and her significant other will move in with them and will likely need to have continued medical support there. Interval History: Patient is participating in therapy and making reasonable progress. Taking rest breaks as needed. +BM. Denies palpitations, dyspnea, cough, N/V, weakness, or joint pain. Discussed discharge with patient, she states that she wants to utilize the same home health service that she had prior to coming in and will get us the information on which company that was. Patient also states that the steps into the trailer are actually much higher than normal steps and she is having difficulty with that and working with PT. They discussed this last week and patient was advised to have a ramp placed. We will look to discharge patient middle of next week with a wheelchair and 3 in 1. Right BKA: Continue to monitor for any signs of dehiscence or infection. Wound intact. Wound care has evaluated. Dressings should be changed every other day. Stump protector in place. Pain fairly well controlled with current medications. Dressing removed, no excessive drainage noted on bandaging. No wound breakdown. Bleeding well controlled. Continue to monitor. Volume depletion/NICKIE: BUN and creatinine are elevated with decreased GFR. Start IV fluids recheck labs. Monitor oral intake. Hypertension: Hypertension improved without any reports of hypotensive episodes. Patient continues to not require medications at this point. States that she was taking amlodipine 10 mg at home. Diastolic pressure has dipped lower on occasion. Diabetes: Poorly controlled overall. Doing better on split dosing of Lantus and values look better over the last couple of days, all glucose checks were less than 200 yesterday. We will continue to monitor current diabetes regimen and adjust as needed. Improving PVD: Continue supportive care monitor. Patient continues on aspirin and Eliquis. Patient's Eliquis dose reverted back to 2.5 mg twice daily which she was taking prior to this hospitalization. Will need to follow-up with vascular surgery at discharge Pain: Postoperative pain fairly well controlled on current dosing of opioids. Tolerating starting dose of gabapentin. Neuropathic pain fairly well controlled on current dose of gabapentin, patient does have occasional episodes of pain but does not describe it consistent with phantom pain, more so neuropathic in nature in the residual limb. Anemia: We will continue to monitor and transfuse as needed. Hemoglobin stable and bleeding has stopped. Constipation: Continue bowel medications and monitor for improvement. Patient is having intermittent bowel movements. Insomnia: Continue trazodone, patient slept well overnight. Will discharge patient with a small quantity of these for home. All records, vitals, labs and medications were reviewed. No other issues per patient, nursing or therapy. Objective - Exam Narrative Exam: MUSCULOSKELETAL SPECIALTY EXAM CONSTITUTIONAL: Well developed, well nourished, appropriately groomed, thin RESPIRATORY: Clear to auscultation bilaterally, no increased work of breathing CARDIOVASCULAR: Regular Rate/ Rhythm, no swelling, edema or tenderness in BUE or BLE. All extremities warm. GI: + bowel sounds, soft, NTTP, nondistended. INTEGUMENTARY: Normal, no lesion, rash, masses or bruising noted in extremities. Right BKA wound with intact and dry dressing this morning. Bandaging removed, wound intact without excessive bleeding and no signs of infection. MUSCULOSKELETAL: Right BKA, otherwise, BUE and BLE normal without defect, crepitus, subluxation, effusion, arthritic changes or TTP. BUE 4+/5, good ROM, with normal tone. LLE 4+/5 good ROM, with normal tone, RLE with reasonable range of motion and 4- /5, stump protector in place. Appropriate TTP at surgical area. NEURO: Sensation intact in all extremities. No tremor noted in 4 extremities. POSTURE and GAIT: Sitting posture good. Standing posture good, and dynamic balance fair, tolerating hopping with rolling walker. PSYCH: Alert, oriented x3, affect appears normal . Insight appears intact. - Constitutional Vitals: Vital Signs - 12hr 10/28/20 10/28/20 04:39 05:12 Temperature 97.4 F L 97.7 F Pulse Rate 72 Respiratory 16 Rate Blood Pressure 111/51 [Left] O2 Sat by Pulse 94 Oximetry - Allied health notes Allied health notes reviewed: nursing, PT, OT FIMS assessment as documented by PT/OT/ST: Grooming Patient cleans teeth/dentures: Yes Patient duckworth/brushes hair: Yes Patient washes, rinses and Yes dries face: Patient washes, rinses and Yes dries hands: Patient performs (no make-up/ / (100%) shaving): Grooming FIM Score 5. Supervision ([place] applies toothpaste or opens containers.) Toileting Toileting Device Commode over Toilet Patient able to: Adjust clothes before,Clean self,Adjust clothes after Patient able to perform: 3/3 (100%) Toileting FIM Score 6. Modified [place] (Needs equip. or prost h ./orth.) Social interaction/Memory/Problem solving Social Interaction FIM Score 6. Mod. [place] (Mostly appropriate. May need meds. No supv.) Memory FIM Score 6. Modified [place](Mild difficulty remembering people/routines.) Problem Solving FIM Score 5. Supervision (Needs cueing <10% to solve routine problems.) Transfers Mode of Locomotion: Wheelchair Bed/Chair/Wheelchair Transfers 5. Supervision (Needs supv. or set-up for FIM Score sliding board, foot rests.) Eating Eating FIM Score 6. Modified [place] (Special consistency or uses device.) Dressing-Upper body Patient retrieves clothing Yes items: Upper Body Dressing FIM Score 7. Complete [place] (Dresses self. Gets own clothes.) Dressing-lower body Patient retrieves clothing Yes items: Patient applies/removes LE Yes prosthesis or orthosis: Lower Body Dressing FIM Score 6. Modified [place] (Needs equipment, velcro or pros./orth.) - Labs CBC & Chem 7: 10/28/20 06:34 10/28/20 06:34 Labs: Laboratory Results - last 72 hr 10/25/20 10/25/20 10/25/20 07:44 11:29 16:02 WBC RBC Hgb Hct MCV MCH MCHC RDW Plt Count Sodium Potassium Chloride Carbon Dioxide Anion Gap BUN Creatinine Estimated GFR BUN/Creatinine Ratio Glucose POC Glucose 121 H 198 H 127 H Calcium 10/25/20 10/26/20 10/26/20 21:56 07:46 11:35 WBC RBC Hgb Hct MCV MCH MCHC RDW Plt Count Sodium Potassium Chloride Carbon Dioxide Anion Gap BUN Creatinine Estimated GFR BUN/Creatinine Ratio Glucose POC Glucose 239 H 78 121 H Calcium 10/26/20 10/26/20 10/27/20 16:08 21:47 07:33 WBC RBC Hgb Hct MCV MCH MCHC RDW Plt Count Sodium Potassium Chloride Carbon Dioxide Anion Gap BUN Creatinine Estimated GFR BUN/Creatinine Ratio Glucose POC Glucose 191 H 71 159 H Calcium 10/27/20 10/27/20 10/27/20 11:21 16:07 20:49 WBC RBC Hgb Hct MCV MCH MCHC RDW Plt Count Sodium Potassium Chloride Carbon Dioxide Anion Gap BUN Creatinine Estimated GFR BUN/Creatinine Ratio Glucose POC Glucose 153 H 183 H 93 Calcium 10/28/20 10/28/20 06:34 06:34 WBC 7.4 RBC 3.32 L Hgb 9.5 L Hct 28.5 L MCV 86 MCH 29 MCHC 33 RDW 14.5 Plt Count 534 H Sodium 134 L Potassium 4.9 Chloride 96.9 L Carbon Dioxide 30 Anion Gap 12 BUN 27 H Creatinine 1.2 Estimated GFR 44 BUN/Creatinine Ratio 23 Glucose 103 H POC Glucose Calcium 9.7 Assessment and Plan Right BKA: Continue to utilize right limb protector. Continue therapy to improve patient's overall mobility and self-care. Monitor wound for any signs of worsening, infection, dehiscence. Wound care has been consulted. Notify vascular surgery for any issues with wound healing. Have discussed working with the prosthetists with the patient and will work on getting her referral for further fitting as she progresses and when the time is right/approved by surgeon. Phantom sensation: Continue desensitization and monitor for any signs of phantom pain. If patient does start having issues with phantom pain we can start further medications as needed. Discussion had with patient about phantom sensation and best ways to control it. We will start gabapentin for neuropathic pain she is experiencing in the residual limb Postoperative pain: All medications have been adjusted to oral doses of oxycodone. Continue to monitor patient's pain and adjust medications as needed with the goal of dose reduction as we move further from the surgery. Volume depletion/NICKIE: Increased BUN and creatinine with decreased GFR. Gentle IV fluids overnight will be started and recheck labs. Anemia: Patient previously transfuse 1 unit PRBCs on acute care side. Monitor hemoglobin on a regular basis and transfuse as needed. Primarily acute blood loss anemia. Improving COPD: Continue albuterol. Patient continues to smoke and has been counseled on smoking cessation. Monitor O2 saturations and adjust medications as needed Hypertension: Blood pressure has improved without medication. We will continue to monitor and start medications if needed. As needed hydralazine has been ordered. Patient states she was previously taking amlodipine 10 mg daily. Diabetes, poorly controlled: Lantus adjusted to twice daily dosing and sliding scale increased. Improving. Carb controlled diet. Monitor glucose checks and adjust as needed. PAD/PVD: Continue Eliquis and antiplatelets. Follow-up with vascular surgery as outpatient or as needed in-house. ADL dysfunction: OT will work on improving ability to perform ADLs (including assistive devices) to increase independence and decrease caregiver burden and improve functional transfers and mobility training. Difficulty walking: PT will work on gait training and proper use of assistive devices and advance as appropriate to use of stairs and outside ambulation on uneven surfaces. Unsteadiness on feet: PT will work on improving static and dynamic sitting and standing balance as well as proper use of assistive devices to decrease risk of falls. Abnormality of gait: PT will work to improve safety and efficiency of gait through neuromotor training and gait training along with instruction on proper use of assistive devices. Muscle weakness: PT & OT will work on strengthening exercises to improve functional strength including mixture of closed and open kinetic chain exercises. Debility: PT & OT will work on improving overall functional status to improve participation with ADLs, mobility and social involvement. Fatigue: PT & OT will work on improving endurance through aerobic exercises and therapeutic activity while monitoring patients tolerance for activity and vital signs as needed. DVT ppx: Eliquis Pain: Continue physical modalities in therapy and pain medications as needed to achieve functional pain control. Sleep: Monitor and address as needed. Discontinue Ambien and start trazodone Bowel: Monitor and address as needed. As needed medications available Appetite: Monitor and address as needed. Discharge planning: Pending therapy progress and care plan meeting. Will continue discussion with therapy team, SW, patient and family. Patient has rolling walker and shower chair at home. Will need to discharge with a wheelchair and 3 in 1. We will look to discharge next Saturday. Restrictions/ Precautions: Falls, wound WB status: NWB on RLE Functional Hx: ADLs: Independent Cognition: Independent Mobility: No AD Barriers to Discharge: Decreased mobility and ability to perform self care, balance deficits, weakness Estimated Length of Stay: 1014 days Discharge Destination: Home with significant other in a trailer with 3 steps
[2020-10-28] MEDS ORDERED: SODIUM CHLORIDE 0.9% 1000 ML 1,000 ML IV SCH (09:30)
[2020-10-28] MEDS: LOPERAMIDE 2 MG CAP PO PRN (20:12)
[2020-10-28] MEDS: traZODone 50 MG TAB PO SCH (22:39)
[2020-10-28] MEDS: GABAPENTIN 300 MG CAP PO SCH (22:39)
[2020-10-29] MEDS: oxyCODONE 5 MG TAB PO PRN ×2 (00:38→21:36)
[2020-10-29 06:42] LABS: Calcium 9.1 mg/dL (8.4-10.2)
[2020-10-29] MEDS: INSULIN LISPRO 100 UNIT/ML SUB-Q SCH ×4 (08:29→21:40)
[2020-10-29] MEDS: PANTOPRAZOLE 40 MG TAB PO SCH (08:29)
[2020-10-29] MEDS: ASPIRIN EC 81 MG TAB PO SCH (08:29)
[2020-10-29] MEDS: NICOTINE 7 MG/24 HR PATCH TD SCH (08:29)
[2020-10-29] MEDS: INSULIN GLARGINE 100 UNITS/ML SUB-Q SCH ×2 (08:29→21:37)
[2020-10-29] MEDS: APIXABAN 2.5 MG TAB PO SCH ×3 (08:29→21:36)
[2020-10-29] MEDS: GABAPENTIN 300 MG CAP PO SCH (21:37)
[2020-10-29] MEDS: traZODone 50 MG TAB PO SCH (21:37)
[2020-10-30] MEDS: ASPIRIN EC 81 MG TAB PO SCH (08:38)
[2020-10-30] MEDS: NICOTINE 7 MG/24 HR PATCH TD SCH (08:38)
[2020-10-30] MEDS: PANTOPRAZOLE 40 MG TAB PO SCH (08:38)
[2020-10-30] MEDS: INSULIN LISPRO 100 UNIT/ML SUB-Q SCH ×4 (08:39→22:17)
[2020-10-30] MEDS: APIXABAN 2.5 MG TAB PO SCH ×3 (08:39→22:15)
[2020-10-30] MEDS: INSULIN GLARGINE 100 UNITS/ML SUB-Q SCH ×2 (08:39→22:17)
[2020-10-30] MEDS: LOPERAMIDE 2 MG CAP PO PRN (17:49)
[2020-10-30] MEDS: oxyCODONE 5 MG TAB PO PRN (22:15)
[2020-10-30] MEDS: GABAPENTIN 300 MG CAP PO SCH (22:15)
[2020-10-30] MEDS: traZODone 50 MG TAB PO SCH (22:15)
[2020-10-31] MEDS: NICOTINE 7 MG/24 HR PATCH TD SCH (07:55)
[2020-10-31] MEDS: APIXABAN 2.5 MG TAB PO SCH ×3 (07:55→21:07)
[2020-10-31] MEDS: ASPIRIN EC 81 MG TAB PO SCH (07:55)
[2020-10-31] MEDS: PANTOPRAZOLE 40 MG TAB PO SCH (07:55)
[2020-10-31] MEDS: oxyCODONE 5 MG TAB PO PRN ×2 (08:01→21:09)
[2020-10-31] MEDS: INSULIN LISPRO 100 UNIT/ML SUB-Q SCH ×4 (08:40→21:35)
[2020-10-31] MEDS: INSULIN GLARGINE 100 UNITS/ML SUB-Q SCH ×2 (08:40→21:07)
--- NOTE | 2020-10-31 08:55 | Progress Note ---
Subjective Date of service: 10/31/20 Principal diagnosis: Right BKA Interval history: 74-year-old female who presented to the ER on 10/04 with worsening right lower extremity wounds. Patient has longstanding history of peripheral vascular disease and has previously undergone endovascular interventions however the wounds were not healing. She was offered amputation but wanted to pursue limb salvage if at all possible. She was started on antibiotics for wound infection and after period of time and discussing with her family opted for a amputation. Patient does have a knee replacement in the right leg and the steps were taken to make sure that the amputation was below the level of the hardware. She had good popliteal pulse. Dr. Uday Mackay performed a right BKA on 10/11. Amputation was without complications. Patient did have ongoing blood loss and anemia and she was transfused 1 unit of packed red blood cells on 10/14. During a previous hospitalization, patient was placed on Eliquis for severe peripheral vascular disease along with antiplatelets. After the patient was medically stabilized they were transferred for further rehabilitation. All available medical records have been reviewed. Plan of care was discussed with patient. Approximately 45 minutes was invested and record review of patient's prior medical history here in the hospital. Also had prolonged discussion with the patient including approximately 25 minutes [id number] discussing her prognosis and future prosthesis. Patient is planning to move to [place] with her daughter in the near future. She and her significant other will move in with them and will likely need to have continued medical support there. Interval History: Patient is participating in therapy and making reasonable progress. Taking rest breaks as needed. +BM. Denies palpitations, dyspnea, cough, N/V, weakness, or joint pain. Patient prefers to use [facility] as this is who she has had good success with in the past. Significant other is working on obtaining a ramp for access into the house and has started on that today. No acute events over the weekend we will look to discharge patient middle of next week with a wheelchair and 3 in 1. Right BKA: Continue to monitor for any signs of dehiscence or infection. Wound intact. Wound care has evaluated. Dressings should be changed every other day. Stump protector in place. Pain fairly well controlled with current medications. Dressing will be taken down tomorrow, no drainage during dressing change yesterday. Continue to monitor. Volume depletion/NICKIE: Slight improvement in renal function after IV fluids. Patient continues to occasionally have loose stool. Monitor oral intake. Recheck labs tomorrow Hypertension: Hypertension improved without any reports of hypotensive episodes. Patient continues to not require medications at this point. States that she was taking amlodipine 10 mg at home. Diastolic pressure has dipped lower on occasion. Diabetes: Poorly controlled overall. Recent A1c 9.5. Doing better on split dosing of Lantus. We will continue to monitor current diabetes regimen and adjust as needed. She did have a hypoglycemic episode this morning and after reviewing her eating from yesterday it appears that she did not eat her fruit or drink her fruit juice as normal. She was asymptomatic and only dipped down to 57. After discussion with the patient about a continuous glucose monitor which might be very useful in helping the patient to ascertain how her body is reacting to various types of foods and to give her a better sense of control over utilizing insulin appropriately. PVD: Continue supportive care monitor. Patient continues on aspirin and Eliquis. Patient's Eliquis dose reverted back to 2.5 mg twice daily which she was taking prior to this hospitalization. Will need to follow-up with vascular surgery at discharge Pain: Postoperative pain fairly well controlled on current dosing of opioids. Tolerating starting dose of gabapentin. Neuropathic pain fairly well controlled on current dose of gabapentin, patient does have occasional episodes of pain but does not describe it consistent with phantom pain, more so neuropathic in nature in the residual limb. Anemia: We will continue to monitor and transfuse as needed. Hemoglobin stable and bleeding has stopped. Constipation: Continue bowel medications and monitor for improvement. Patient is having intermittent bowel movements with some recent loose stools. She has not received MiraLAX recently, this may be related to lactose. Insomnia: Continue trazodone, patient slept well overnight. Will discharge patient with a small quantity of these for home. All records, vitals, labs and medications were reviewed. No other issues per patient, nursing or therapy. Objective - Exam Narrative Exam: MUSCULOSKELETAL SPECIALTY EXAM CONSTITUTIONAL: Well developed, well nourished, appropriately groomed, thin RESPIRATORY: Clear to auscultation bilaterally, no increased work of breathing CARDIOVASCULAR: Regular Rate/ Rhythm, no swelling, edema or tenderness in BUE or BLE. All extremities warm. GI: + bowel sounds, soft, NTTP, nondistended. INTEGUMENTARY: Normal, no lesion, rash, masses or bruising noted in extremities. Right BKA wound with intact and dry dressing this morning. Bandaging not removed, will take down and replaced tomorrow. MUSCULOSKELETAL: Right BKA, otherwise, BUE and BLE normal without defect, crepitus, subluxation, effusion, arthritic changes or TTP. BUE 4+/5, good ROM, with normal tone. LLE 4+/5 good ROM, with normal tone, RLE with reasonable range of motion and 4- /5, stump protector in place. Appropriate TTP at surgical area. NEURO: Sensation intact in all extremities. No tremor noted in 4 extremities. POSTURE and GAIT: Sitting posture good. Standing posture good, and dynamic balance fair, tolerating hopping with rolling walker. PSYCH: Alert, oriented x3, affect appears normal . Insight appears intact. - Constitutional Vitals: Vital Signs - 12hr 10/31/20 10/31/20 05:09 07:01 Temperature 98 F 97.6 F Pulse Rate 76 70 Respiratory 16 20 Rate Blood Pressure 109/48 Blood Pressure 138/58 [Left] O2 Sat by Pulse 100 98 Oximetry - Allied health notes Allied health notes reviewed: nursing, PT, OT FIMS assessment as documented by PT/OT/ST: Grooming Patient cleans teeth/dentures: Yes Patient duckworth/brushes hair: Yes Patient washes, rinses and Yes dries face: Patient washes, rinses and Yes dries hands: Patient performs (no make-up/ / (100%) shaving): Grooming FIM Score 5. Supervision ([place] applies toothpaste or opens containers.) Toileting Toileting Device Commode over Toilet Patient able to: Adjust clothes before,Clean self,Adjust clothes after Patient able to perform: 3/3 (100%) Toileting FIM Score 6. Modified [place] (Needs equip. or prosth ./orth.) Social interaction/Memory/Problem solving Social Interaction FIM Score 6. Mod. [place] (Mostly appropriate. May need meds. No supv.) Memory FIM Score 6. Modified [place](Mild difficulty remembering people/routines.) Problem Solving FIM Score 5. Supervision (Needs cueing <10% to solve routine problems.) Transfers Mode of Locomotion: Wheelchair Bed/Chair/Wheelchair Transfers 5. Supervision (Needs supv. or set-up for FIM Score sliding board, foot rests.) Eating Eating FIM Score 6. Modified [place] (Special consistency or uses device.) Dressing-Upper body Patient retrieves clothing Yes items: Upper Body Dressing FIM Score 7. Complete [place] (Dresses self. Gets own clothes.) Dressing-lower body Patient retrieves clothing Yes items: Patient applies/removes LE Yes prosthesis or orthosis: Lower Body Dressing FIM Score 6. Modified [place] (Needs equipment, velcro or pros./orth.) - Labs CBC & Chem 7: 10/28/20 06:34 10/29/20 05:27 Labs: Laboratory Results - last 72 hr 10/28/20 10/28/20 10/28/20 07:19 11:39 16:07 Sodium Potassium Chloride Carbon Dioxide Anion Gap BUN Creatinine Estimated GFR BUN/Creatinine Ratio Glucose POC Glucose 104 176 H 122 H Calcium 10/28/20 10/29/20 10/29/20 21:12 05:27 07:36 Sodium 135 L Potassium 4.9 Chloride 102.0 Carbon Dioxide 24 Anion Gap 14 BUN 25 H Creatinine 1.1 Estimated GFR 49 BUN/Creatinine Ratio 23 Glucose 114 H POC Glucose 142 H 111 H Calcium 9.1 10/29/20 10/29/20 10/29/20 11:49 16:27 21:34 Sodium Potassium Chloride Carbon Dioxide Anion Gap BUN Creatinine Estimated GFR BUN/Creatinine Ratio Glucose POC Glucose 197 H 154 H 235 H Calcium 10/30/20 10/30/20 10/30/20 07:34 11:28 16:04 Sodium Potassium Chloride Carbon Dioxide Anion Gap BUN Creatinine Estimated GFR BUN/Creatinine Ratio Glucose POC Glucose 88 170 H 213 H Calcium 10/30/20 21:04 Sodium Potassium Chloride Carbon Dioxide Anion Gap BUN Creatinine Estimated GFR BUN/Creatinine Ratio Glucose POC Glucose 154 H Calcium Assessment and Plan Right BKA: Continue to utilize right limb protector. Continue therapy to improve patient's overall mobility and self-care. Monitor wound for any signs of worsening, infection, dehiscence. Wound care has been consulted. Notify vascular surgery for any issues with wound healing. Have discussed working with the prosthetists with the patient and will work on getting her referral for further fitting as she progresses and when the time is right/approved by surgeon. Phantom sensation: Continue desensitization and monitor for any signs of phantom pain. If patient does start having issues with phantom pain we can start further medications as needed. Discussion had with patient about phantom sensation and best ways to control it. We will start gabapentin for neuropathic pain she is experiencing in the residual limb Postoperative pain: All medications have been adjusted to oral doses of oxycodone. Continue to monitor patient's pain and adjust medications as needed with the goal of dose reduction as we move further from the surgery. Volume depletion/NICKIE: Increased BUN and creatinine with decreased GFR. Gentle IV fluids overnight will be started and recheck labs. Anemia: Patient previously transfuse 1 unit PRBCs on acute care side. Monitor hemoglobin on a regular basis and transfuse as needed. Primarily acute blood loss anemia. Improving COPD: Continue albuterol. Patient continues to smoke and has been counseled on smoking cessation. Monitor O2 saturations and adjust medications as needed Hypertension: Blood pressure has improved without medication. We will continue to monitor and start medications if needed. As needed hydralazine has been ordered. Patient states she was previously taking amlodipine 10 mg daily. Diabetes, poorly controlled: Lantus adjusted to twice daily dosing and sliding scale increased. Improving. Carb controlled diet. Monitor glucose checks and adjust as needed. Patient may benefit from continuous glucose monitor, and suggested that she follow-up with PCP after discharge. A1c 9.5% PAD/PVD: Continue Eliquis and antiplatelets. Follow-up with vascular surgery as outpatient or as needed in-house. ADL dysfunction: OT will work on improving ability to perform ADLs (including assistive devices) to increase independence and decrease caregiver burden and improve functional transfers and mobility training. Difficulty walking: PT will work on gait training and proper use of assistive devices and advance as appropriate to use of stairs and outside ambulation on uneven surfaces. Unsteadiness on feet: PT will work on improving static and dynamic sitting and standing balance as well as proper use of assistive devices to decrease risk of falls. Abnormality of gait: PT will work to improve safety and efficiency of gait through neuromotor training and gait training along with instruction on proper use of assistive devices. Muscle weakness: PT & OT will work on strengthening exercises to improve functional strength including mixture of closed and open kinetic chain exercises. Debility: PT & OT will work on improving overall functional status to improve participation with ADLs, mobility and social involvement. Fatigue: PT & OT will work on improving endurance through aerobic exercises and therapeutic activity while monitoring patients tolerance for activity and vital signs as needed. DVT ppx: Eliquis Pain: Continue physical modalities in therapy and pain medications as needed to achieve functional pain control. Sleep: Monitor and address as needed. Discontinue Ambien and start trazodone Bowel: Monitor and address as needed. As needed medications available Appetite: Monitor and address as needed. Discharge planning: Pending therapy progress and care plan meeting. Will continue discussion with therapy team, SW, patient and family. Patient has rolling walker and shower chair at home. Will need to discharge with a wheelchair and 3 in 1. We will look to discharge Saturday. Restrictions/ Precautions: Falls, wound WB status: NWB on RLE Functional Hx: ADLs: Independent Cognition: Independent Mobility: No AD Barriers to Discharge: Decreased mobility and ability to perform self care, balance deficits, weakness Estimated Length of Stay: 1014 days Discharge Destination: Home with significant other in a trailer with 3 steps
[2020-10-31] MEDS: GABAPENTIN 300 MG CAP PO SCH (21:06)
[2020-10-31] MEDS: traZODone 50 MG TAB PO SCH (21:06)
[2020-11-01 07:10] LABS: Hematocrit 28.7 % (30.3-42.9); Hemoglobin 9.7 gm/dl (10.1-14.3); Mean Corpuscular HGB Conc 34 % (30-34); Mean Corpuscular Volume 87 fl (79-97); Platelet Count 422 K/mm3 (140-440); Red Blood Count 3.32 M/mm3 (3.65-5.03); Red Cell Distribution Width 14.5 % (13.2-15.2)
[2020-11-01] MEDS: INSULIN LISPRO 100 UNIT/ML SUB-Q SCH ×4 (07:30→21:19)
[2020-11-01 07:31] LABS: Calcium 9.5 mg/dL (8.4-10.2)
[2020-11-01] MEDS: ASPIRIN EC 81 MG TAB PO SCH (09:39)
[2020-11-01] MEDS: PANTOPRAZOLE 40 MG TAB PO SCH (09:39)
[2020-11-01] MEDS: NICOTINE 7 MG/24 HR PATCH TD SCH (09:39)
[2020-11-01] MEDS: APIXABAN 2.5 MG TAB PO SCH ×2 (09:39→21:13)
[2020-11-01] MEDS: INSULIN GLARGINE 100 UNITS/ML SUB-Q SCH (09:40)
--- NOTE | 2020-11-01 10:08 | Progress Note ---
Subjective Date of service: 11/01/20 Principal diagnosis: Right BKA Interval history: 74-year-old female who presented to the ER on 10/04 with worsening right lower extremity wounds. Patient has longstanding history of peripheral vascular disease and has previously undergone endovascular interventions however the wounds were not healing. She was offered amputation but wanted to pursue limb salvage if at all possible. She was started on antibiotics for wound infection and after period of time and discussing with her family opted for a amputation. Patient does have a knee replacement in the right leg and the steps were taken to make sure that the amputation was below the level of the hardware. She had good popliteal pulse. Dr. Uday Mackay performed a right BKA on 10/11. Amputation was without complications. Patient did have ongoing blood loss and anemia and she was transfused 1 unit of packed red blood cells on 10/14. During a previous hospitalization, patient was placed on Eliquis for severe peripheral vascular disease along with antiplatelets. After the patient was medically stabilized they were transferred for further rehabilitation. All available medical records have been reviewed. Plan of care was discussed with patient. Approximately 45 minutes was invested and record review of patient's prior medical history here in the hospital. Also had prolonged discussion with the patient including approximately 25 minutes [id number] discussing her prognosis and future prosthesis. Patient is planning to move to [place] with her daughter in the near future. She and her significant other will move in with them and will likely need to have continued medical support there. Interval History: Patient is participating in therapy and making reasonable progress. Taking rest breaks as needed. +BM. Denies palpitations, dyspnea, cough, N/V, weakness, or joint pain. No acute events overnight, discussed discharge with the patient which will be tomorrow. Patient had numerous questions concerning follow-up, podiatry, glucose management. Patient states that she is taking Humalog and Tresiba at home due to insurance reasons and gave me a copy of her sliding scale. Told her that I will attempt to put the sliding scale into the prescription however her limitations from the computer may not allow me to fill it all in there and she should just follow the home sliding scale regardless of what prints up from the computer. Right BKA: Continue to monitor for any signs of dehiscence or infection. Wound intact. Wound care has evaluated. Dressings should be changed every other day. Stump protector in place. Pain fairly well controlled with current medications. Dressing removed, no signs of infection. Small area of slightly denuded skin and parts of the wound seem to be macerated, will change to dry dressing. Continue to monitor. Patient will need to follow-up with vascular surgery after discharge Volume depletion/NICKIE: Slight improvement in renal function after IV fluids. Patient continues to occasionally have loose stool. Monitor oral intake. Renal function seems to have improved Hypertension: Hypertension improved without any reports of hypotensive episodes. Patient continues to not require medications at this point. States that she was taking amlodipine 10 mg at home. Diastolic pressure has dipped lower on occasion. Diabetes: Poorly controlled overall. Recent A1c 9.5. Doing better on split dosing of Lantus. We will continue to monitor current diabetes regimen and adjust as needed. Patient has had a second morning of lower glucose levels. States she did not eat her typical fruit cups or drink fruit juice yesterday and this is the second day she has not done that. Will decrease basal insulin slightly. Patient insulin will need to be changed to Humalog and Tresiba based on insurance coverage. Her home sliding scale is as follows: 170562 give 2 units, 246243 give 3 units, 820897 give 4 units, 008576 give 5 units, 492829 give 6 units, 575056 give 7 units, 202089 give 8 units, 590463 give 9 units, 997195 give 10 units, 041226 give 11 units, 809211 give 12 units, above that call primary MD. This will not fit on our prescription from the computer when prescribing, patient has been instructed to follow her home sliding scale per her primary care physician. PVD: Continue supportive care monitor. Patient continues on aspirin and Eliquis. Patient's Eliquis dose reverted back to 2.5 mg twice daily which she was taking prior to this hospitalization. Will need to follow-up with vascular surgery at discharge Pain: Postoperative pain fairly well controlled on current dosing of opioids. Tolerating starting dose of gabapentin. Neuropathic pain fairly well controlled on current dose of gabapentin, patient does have occasional episodes of pain but does not describe it consistent with phantom pain, more so neuropathic in nature in the residual limb. Anemia: We will continue to monitor and transfuse as needed. Hemoglobin stable and bleeding has stopped. Constipation: Continue bowel medications and monitor for improvement. Patient is having intermittent bowel movements with some recent loose stools. She has not received MiraLAX recently, this may be related to lactose. Insomnia: Continue trazodone, patient slept well overnight. Will discharge patient with a small quantity of these for home. All records, vitals, labs and medications were reviewed. No other issues per patient, nursing or therapy. Patient was discussed during team conference, making good progress and should be able to transition home without any issues. Wheelchair has been ordered. [employer] has also been requested as this is the company patient was previously using and prefers. Patient's significant other is building wheelchair ramp and should have that completed by discharge. Patient has been advised to continue following up with vascular surgeon until he clears her for fitting of prosthesis and remove pita. Patient at some point will likely move to [place] to live with her daughter. In total greater than 35 minutes was invested in patient care today with greater than 50% of that being spent counseling and coordinating care. Objective - Exam Narrative Exam: MUSCULOSKELETAL SPECIALTY EXAM CONSTITUTIONAL: Well developed, well nourished, appropriately groomed, thin RESPIRATORY: Clear to auscultation bilaterally, no increased work of breathing CARDIOVASCULAR: Regular Rate/ Rhythm, no swelling, edema or tenderness in BUE or BLE. All extremities warm. GI: + bowel sounds, soft, NTTP, nondistended. INTEGUMENTARY: Normal, no lesion, rash, masses or bruising noted in extremities. Right BKA wound with intact and dry dressing this morning. Bandage removed, no signs of infection, small area on anterior aspect that appears slightly macerated. MUSCULOSKELETAL: Right BKA, otherwise, BUE and BLE normal without defect, crepitus, subluxation, effusion, arthritic changes or TTP. BUE 4+/5, good ROM, with normal tone. LLE 4+/5 good ROM, with normal tone, RLE with reasonable range of motion and 4- /5, stump protector in place. Appropriate TTP at surgical area. NEURO: Sensation intact in all extremities. No tremor noted in 4 extremities. POSTURE and GAIT: Sitting posture good. Standing posture good, and dynamic balance fair, tolerating hopping with rolling walker. PSYCH: Alert, oriented x3, affect appears normal . Insight appears intact. - Constitutional Vitals: Vital Signs - 12hr 10/31/20 11/01/20 11/01/20 23:00 04:46 07:26 Temperature 97.7 F 98.2 F Pulse Rate 74 79 Respiratory 17 16 16 Rate Blood Pressure 112/46 Blood Pressure 116/50 [Left] O2 Sat by Pulse 97 99 Oximetry - Allied health notes Allied health notes reviewed: nursing, PT, OT FIMS assessment as documented by PT/OT/ST: Grooming Patient cleans teeth/dentures: Yes Patient duckworth/brushes hair: Yes Patient washes, rinses and Yes dries face: Patient washes, rinses and Yes dries hands: Patient performs (no make-up/ 4/4 (100%) shaving): Grooming FIM Score 6. Modified Trinity (Needs equipment/device . Extra time.) Toileting Toileting Device Commode over Toilet Patient able to: Adjust clothes before,Clean self,Adjust clothes after Patient able to perform: 3/3 (100%) Toileting FIM Score 6. Modified Trinity (Needs equip. or prosth ./orth.) Social interaction/Memory/Problem solving Social Interaction FIM Score 6. Mod. Trinity (Mostly appropriate. May need meds. No supv.) Memory FIM Score 7. Complete Trinity (Remembers people and routines.) Problem Solving FIM Score 6. Mod. Trinity (Mild difficulty or needs more time w/ complex.) Transfers Mode of Locomotion: Wheelchair Bed/Chair/Wheelchair Transfers 6. Modified Trinity (Uses device, sliding FIM Score board, prosth./orth.) Eating Eating FIM Score 7. Complete Trinity (Cuts meat, opens containers, regular diet.) Dressing-Upper body Patient retrieves clothing Yes items: Upper Body Dressing FIM Score 6. Modified Trinity (Needs equipment, velcro or pros./orth.) Dressing-lower body Patient retrieves clothing Yes items: Patient applies/removes LE Yes prosthesis or orthosis: Lower Body Dressing FIM Score 6. Modified Trinity (Needs equipment, velcro or pros./orth.) - Labs CBC & Chem 7: 11/01/20 06:49 11/01/20 06:49 Labs: Laboratory Results - last 72 hr 10/29/20 10/29/20 10/29/20 11:49 16:27 21:34 WBC RBC Hgb Hct MCV MCH MCHC RDW Plt Count Sodium Potassium Chloride Carbon Dioxide Anion Gap BUN Creatinine Estimated GFR BUN/Creatinine Ratio Glucose POC Glucose 197 H 154 H 235 H Calcium 10/30/20 10/30/20 10/30/20 07:34 11:28 16:04 WBC RBC Hgb Hct MCV MCH MCHC RDW Plt Count Sodium Potassium Chloride Carbon Dioxide Anion Gap BUN Creatinine Estimated GFR BUN/Creatinine Ratio Glucose POC Glucose 88 170 H 213 H Calcium 10/30/20 10/31/20 10/31/20 21:04 07:34 08:37 WBC RBC Hgb Hct MCV MCH MCHC RDW Plt Count Sodium Potassium Chloride Carbon Dioxide Anion Gap BUN Creatinine Estimated GFR BUN/Creatinine Ratio Glucose POC Glucose 154 H 57 L 129 H Calcium 10/31/20 10/31/20 10/31/20 11:48 16:04 20:50 WBC RBC Hgb Hct MCV MCH MCHC RDW Plt Count Sodium Potassium Chloride Carbon Dioxide Anion Gap BUN Creatinine Estimated GFR BUN/Creatinine Ratio Glucose POC Glucose 191 H 135 H 229 H Calcium 11/01/20 11/01/20 11/01/20 06:49 06:49 07:27 WBC 6.1 RBC 3.32 L Hgb 9.7 L Hct 28.7 L MCV 87 MCH 29 MCHC 34 RDW 14.5 Plt Count 422 Sodium 134 L Potassium 4.5 Chloride 98.9 Carbon Dioxide 26 Anion Gap 14 BUN 23 H Creatinine 1.0 Estimated GFR 54 BUN/Creatinine Ratio 23 Glucose 61 L POC Glucose 52 L Calcium 9.5 Assessment and Plan Right BKA: Continue to utilize right limb protector. Continue therapy to improve patient's overall mobility and self-care. Monitor wound for any signs of worsening, infection, dehiscence. Wound care has been consulted. Notify vascular surgery for any issues with wound healing. Have discussed working with the prosthetists with the patient and will work on getting her referral for further fitting as she progresses and when the time is right/approved by angel avendaño. Phantom sensation: Continue desensitization and monitor for any signs of phantom pain. If patient does start having issues with phantom pain we can start further medications as needed. Discussion had with patient about phantom sensation and best ways to control it. We will start gabapentin for neuropathic pain she is experiencing in the residual limb Postoperative pain: All medications have been adjusted to oral doses of oxycodone. Continue to monitor patient's pain and adjust medications as needed with the goal of dose reduction as we move further from the surgery. Volume depletion/NICKIE: Increased BUN and creatinine with decreased GFR. Improved. Anemia: Patient previously transfuse 1 unit PRBCs on acute care side. Monitor hemoglobin on a regular basis and transfuse as needed. Primarily acute blood loss anemia. Improving COPD: Continue albuterol. Patient continues to smoke and has been counseled on smoking cessation. Monitor O2 saturations and adjust medications as needed Hypertension: Blood pressure has improved without medication. We will continue to monitor and start medications if needed. As needed hydralazine has been ordered. Patient states she was previously taking amlodipine 10 mg daily. Diabetes, poorly controlled: Lantus adjusted to twice daily dosing and sliding scale increased. Improving. Carb controlled diet. Monitor glucose checks and adjust as needed. Patient may benefit from continuous glucose monitor, and suggested that she follow-up with PCP after discharge. A1c 9.5% PAD/PVD: Continue Eliquis and antiplatelets. Follow-up with vascular surgery as outpatient or as needed in-house. ADL dysfunction: OT will work on improving ability to perform ADLs (including assistive devices) to increase independence and decrease caregiver burden and improve functional transfers and mobility training. Difficulty walking: PT will work on gait training and proper use of assistive devices and advance as appropriate to use of stairs and outside ambulation on uneven surfaces. Unsteadiness on feet: PT will work on improving static and dynamic sitting and standing balance as well as proper use of assistive devices to decrease risk of falls. Abnormality of gait: PT will work to improve safety and efficiency of gait through neuromotor training and gait training along with instruction on proper use of assistive devices. Muscle weakness: PT & OT will work on strengthening exercises to improve functional strength including mixture of closed and open kinetic chain exercises. Debility: PT & OT will work on improving overall functional status to improve participation with ADLs, mobility and social involvement. Fatigue: PT & OT will work on improving endurance through aerobic exercises and therapeutic activity while monitoring patients tolerance for activity and vital signs as needed. DVT ppx: Eliquis Pain: Continue physical modalities in therapy and pain medications as needed to achieve functional pain control. Sleep: Monitor and address as needed. Discontinue Ambien and start trazodone Bowel: Monitor and address as needed. As needed medications available Appetite: Monitor and address as needed. Discharge planning: Pending therapy progress and care plan meeting. Will continue discussion with therapy team, SW, patient and family. Patient has rolling walker and shower chair at home. Will need to discharge with a wheelchair and 3 in 1. We will look to discharge Saturday. Restrictions/ Precautions: Falls, wound WB status: NWB on RLE Functional Hx: ADLs: Independent Cognition: Independent Mobility: No AD Barriers to Discharge: Decreased mobility and ability to perform self care, balance deficits, weakness Estimated Length of Stay: 1014 days Discharge Destination: Home with significant other in a trailer with 3 steps
[2020-11-01] MEDS: oxyCODONE 5 MG TAB PO PRN ×2 (13:02→21:01)
[2020-11-01] MEDS: GABAPENTIN 300 MG CAP PO SCH (21:00)
[2020-11-01] MEDS: traZODone 50 MG TAB PO SCH (21:00)
[2020-11-01] MEDS ORDERED: INSULIN GLARGINE 100 UNITS/ML SUB-Q SCH (21:00)
[2020-11-02] MEDS: INSULIN GLARGINE 100 UNITS/ML SUB-Q SCH (08:03)
[2020-11-02] MEDS: PANTOPRAZOLE 40 MG TAB PO SCH (08:05)
[2020-11-02] MEDS: ASPIRIN EC 81 MG TAB PO SCH (08:05)
[2020-11-02] MEDS: NICOTINE 7 MG/24 HR PATCH TD SCH (08:05)
[2020-11-02] MEDS: APIXABAN 2.5 MG TAB PO SCH ×2 (08:06→10:00)
--- NOTE | 2020-11-02 08:07 | Discharge Summary ---
Providers - Providers Date of Admission: 10/16/20 08:28 Date of discharge: 11/02/20 Attending physician: REA JOSE III, MD 10/16/20 12:33 Consult to Wound/ET Nurse [CONS] Routine Reason For Exam: wound eval Occupational Therapy Evaluate and Treat [CONS] Routine Comment: Reason For Exam: ADL dysfunction Physical Therapy Evaluation and Treat [CONS] Routine Comment: Reason For Exam: Mobility Dysfunction 10/20/20 10:15 Consult to Physician [CONS] Routine Comment: Consulting Provider: UDAY MACKAY Physician Instructions: Reason For Exam: Surgical follow up , continued bleeding Primary care physician: UDAY ALARCON Hospitalization Reason for admission: R BKA Condition: Good Hospital course: 74-year-old female who presented to the ER on 10/04 with worsening right lower extremity wounds. Patient has longstanding history of peripheral vascular disease and has previously undergone endovascular interventions however the wounds were not healing. She was offered amputation but wanted to pursue limb salvage if at all possible. She was started on antibiotics for wound infection and after period of time and discussing with her family opted for a amputation. Patient does have a knee replacement in the right leg and the steps were taken to make sure that the amputation was below the level of the hardware. She had good popliteal pulse. Dr. Uday Mackay performed a right BKA on 10/11. Amputation was without complications. Patient did have ongoing blood loss and anemia and she was transfused 1 unit of packed red blood cells on 10/14. During a previous hospitalization, patient was placed on Eliquis for severe peripheral vascular disease along with antiplatelets. After the patient was medically stabilized they were transferred for further rehabilitation. All available medical records have been reviewed. Plan of care was discussed with patient. Approximately 45 minutes was invested and record review of patient's prior medical history here in the hospital. Also had prolonged discussion with the patient including approximately 25 minutes [id number] discussing her prognosis and future prosthesis. Patient is planning to move to [place] with her daughter in the near future. She and her significant other will move in with them and will likely need to have continued medical support there. Right BKA: Continue to monitor for any signs of dehiscence or infection. Wound intact. Wound care has evaluated. Dressings should be changed every other day. Stump protector in place. Pain fairly well controlled with current medications. Dressing removed, no signs of infection. Small area of slightly denuded skin and parts of the wound seem to be macerated, will change to dry dressing. Continue to monitor. Patient will need to follow-up with vascular surgery after discharge Volume depletion/NICKIE: Slight improvement in renal function after IV fluids. Patient continues to occasionally have loose stool. Monitor oral intake. Renal function seems to have improved Hypertension: Hypertension improved without any reports of hypotensive episodes. Patient continues to not require medications at this point. States that she was taking amlodipine 10 mg at home. Diastolic pressure has dipped lower on occasion. Would recommend monitoring blood pressure at home and follow-up with PCP. Diabetes: Poorly controlled overall. Recent A1c 9.5. Patient insulin will need to be changed to Humalog and Tresiba based on insurance coverage. Tresiba is longer acting than the Lantus so will revert back to her nightly dosing schedule based on her prior coverage at 25units. Her home sliding scale is as follows: 143827 give 2 units, 958274 give 3 units, 600903 give 4 units, 488192 give 5 units, 378933 give 6 units, 890812 give 7 units, 147638 give 8 units, 691316 give 9 units, 482377 give 10 units, 864199 give 11 units, 285527 give 12 units, above that call primary MD. This will not fit on our prescription from the computer when prescribing, patient has been instructed to follow her home sliding scale per her primary care physician. PVD: Continue supportive care monitor. Patient continues on aspirin and Eliquis. Patient's Eliquis dose reverted back to 2.5 mg twice daily which she was taking prior to this hospitalization. Will need to follow-up with vascular surgery at discharge Pain: Postoperative pain fairly well controlled on current dosing of opioids. Tolerating starting dose of gabapentin. Neuropathic pain fairly well controlled on current dose of gabapentin, patient does have occasional episodes of pain but does not describe it consistent with phantom pain, more so neuropathic in nature in the residual limb. Patient has room to increase gabapentin if needed, so far the neuropathic pain seems to have been fairly well controlled on current low-dose nightly Anemia: Hemoglobin stable and bleeding has stopped. Hemoglobin on 11/01 was 9.7 Constipation: Continue bowel medications and monitor for improvement. Patient is having intermittent bowel movements with some recent loose stools. Insomnia: Continue trazodone, patient slept well overnight. Will discharge patient with a small quantity of these for home. Disposition: [id number] HOME UNDER [facility] Final Discharge Diagnosis (Prints w/discharge instructions): R BKA, Diabetes, Hypertension, PVD, Anemia Time spent for discharge: >30mins Core Measure Documentation - Palliative Care Palliative Care/ Comfort Measures: Not Applicable - Core Measures Any of the following diagnoses?: none Exam - Physical Exam Narrative exam: MUSCULOSKELETAL SPECIALTY EXAM CONSTITUTIONAL: Well developed, well nourished, appropriately groomed, thin RESPIRATORY: Clear to auscultation bilaterally, no increased work of breathing CARDIOVASCULAR: Regular Rate/ Rhythm, no swelling, edema or tenderness in BUE or BLE. All extremities warm. GI: + bowel sounds, soft, NTTP, nondistended. INTEGUMENTARY: Normal, no lesion, rash, masses or bruising noted in extremities. Right BKA wound with intact and dry dressing this morning. Bandage removed, no signs of infection, small area on anterior aspect that appears slightly macerated. MUSCULOSKELETAL: Right BKA, otherwise, BUE and BLE normal without defect, crepitus, subluxation, effusion, arthritic changes or TTP. BUE 4+/5, good ROM, with normal tone. LLE 4+/5 good ROM, with normal tone, RLE with reasonable range of motion and 4/5, stump protector in place. Appropriate TTP at surgical area. NEURO: Sensation intact in all extremities. No tremor noted in 4 extremities. POSTURE and GAIT: Sitting posture good. Standing posture good, and dynamic balance fair, tolerating hopping with rolling walker. PSYCH: Alert, oriented x3, affect appears normal . Insight appears intact. - Constitutional Vitals: Temp Pulse Resp BP Pulse Ox 97.9 F 79 16 121/54 96 11/02/20 07:24 11/02/20 07:24 11/02/20 07:24 11/02/20 07:24 11/02/20 07:24 Plan Activity: up only with assistance, fall precautions Weight Bearing Status: Non-Weight Bearing (RLE) Diet: diabetic (heart healthy) Wound: keep clean and dry, change dressing (Every other day, dry dressing with gauze and Choco wrap. Wound care may be adjusted based on nursing observation or after follow-up with vascular surgeon.) Special Instructions: record blood sugar diary, physical therapy, occupational therapy, home health RN Durable Medical Equipment Needed Upon Discharge: Wheelchair, Bedside Commode Care Plan Goals: Patient will need follow-up with vascular surgeon as an outpatient. Currently the wound on the right BKA is clean dry and intact with pita. Slightly denuded area on anterior portion with slight maceration so dressing was changed to a dry dressing in order to allow this to heal. Overall, wound looks to be healing well. Staple removal her time table of vascular surgeon's preference. Once cleared by vascular surgery, patient may start utilizing pipe bender. She has already been provided a stump protector by [facility]. Also, once cleared by vascular surgeon she may be fitted for a test socket and eventually a prosthetic leg. Patient's glucose was a little difficult to control on the unit while she was with this. She is on longer acting Tresiba at home and was converted to Lantus in house. In order to provide a little better coverage we split the dose of Lantus which helped for the most part. She continues to typically eat fruit cups and drink fruit juice however when she avoids this her glucose levels dropped considerably based on the amount of insulin that she is on. Have discussed with her that monitoring her diet and attempting to eat the same types of meals daily will help as well as reducing simple carbs. We also discussed at length the idea of utilizing a continuous glucose monitor which would really help her to understand which foods affect her blood glucose and also allow her to appropriately modify her insulin regimen. Have encouraged her to follow-up with her PCP for approval of utilizing the continuous glucose monitor and think this would be a great benefit for her. [facility] was accessed prior to prescribing home Roxicodone. Follow up with: UDAY ALARCON MD [Primary Care Provider] - 7 Days Prescriptions: traZODone [Desyrel] 50 mg PO QHS #30 tablet Gabapentin 300 mg PO QHS #30 capsule Insulin Degludec [Tresiba] 25 unit SQ QHS #1 vial Apixaban [Eliquis] 2.5 mg PO Q12HR #60 tablet Nicotine [Habitrol] 7 mg TD 0800 #30 patch Aspirin EC [Halfprin EC] 81 mg PO 0800 #30 tablet Insulin Lispro [Humalog] See Protocol SQ ACHS #1 vial Pantoprazole [Protonix TAB] 40 mg PO QDAC #30 tablet
[2020-11-02] MEDS: INSULIN LISPRO 100 UNIT/ML SUB-Q SCH ×2 (08:10→12:05)
[2020-11-02 12:55] VITALS: BP 133/59
== END 2020-11-02 16:08 | disposition home health service (06) | DRG 948 ==
LOC: 3B 08:28
PROVIDERS: ADMIT Physical Medicine & Rehabilitation; ATTEND Physical Medicine & Rehabilitation
DX: R53.81 Other malaise (principal); R26.9 Unspecified abnormalities of gait and mobility; E11.51 Type 2 diabetes mellitus with diabetic peripheral angiopathy without gangrene; I10 Essential (primary) hypertension; J44.9 Chronic obstructive pulmonary disease, unspecified; K21.9 Gastro-esophageal reflux disease without esophagitis; M62.81 Muscle weakness (generalized); Z88.0 Allergy status to penicillin; Z79.899 Other long term (current) drug therapy; Z89.511 Acquired absence of right leg below knee; Z90.49 Acquired absence of other specified parts of digestive tract; Z79.4 Long term (current) use of insulin; G54.6 Phantom limb syndrome with pain; Z96.651 Presence of right artificial knee joint; F17.200 Nicotine dependence, unspecified, uncomplicated; D64.9 Anemia, unspecified; K59.00 Constipation, unspecified; G47.00 Insomnia, unspecified; E11.65 Type 2 diabetes mellitus with hyperglycemia
CPT/HCPCS: 36415; 80048; 80053; 82565; 82962; 85025; 85027; 85610; 85730; G0378; J1815; J7030